=== PATIENT | female | born 1970 | race Caucasian/White ===

== ENCOUNTER → 2019-06-16 00:01 | Outpatient (RCR) | payer MEDICAID, SELFPAY | LOC: ONCMED 05-20 06:33 | PROVIDERS: Family Provider Family Medicine; Referring Provider Thoracic Surgery (Cardiothoracic Vascular Surgery); Visit Provider Internal Medicine Hematology & Oncology | DX: Z51.12 Encounter for antineoplastic immunotherapy (principal); C34.82 Malignant neoplasm of overlapping sites of left bronchus and lung; F17.201 Nicotine dependence, unspecified, in remission; Z51.81 Encounter for therapeutic drug level monitoring; Z79.899 Other long term (current) drug therapy; Z92.3 Personal history of irradiation; Z87.81 Personal history of (healed) traumatic fracture ==

== ENCOUNTER 2019-07-02 07:29 | Outpatient (CLI) | payer MEDICAID, SELFPAY ==
--- NOTE | 2019-07-02 07:35 | NM_ITS ---
WS: [id number] THREE-PHASE BONE SCAN HISTORY: POST OPERATIVE STATE, history of intramedullary rodding fracture distal LEFT femur. COMPARISON: 10/22/2018, PET/CT 05/02/2019, LEFT femur radiograph 06/15/2019 Patient is is injected with 25.1 mCi Tc99m HDP intravenously. Immediate angiographic phase imaging is performed over the area of concern. Static blood pool imaging also performed. Two-hour whole-body sc intigrams performed in anterior and posterior projections. Additional large field of view imaging sub mitted as necessary. Static imaging performed over the the femora and knees. Static blood pool imaging and immediate angiographic phase is negative for increased uptake. There is increased uptake along the cortex of the distal LEFT femur at the area of the previous descr ibed fracture. More focal increased uptake just inferior to the healing fracture. This increased upta ke may be associated with the fractured screw. The more proximal locking screw has an abnormal orient ation and is fractured as seen radiographically on 06/15/2019. Intermediate uptake along the proximal LEFT femur is associated with the hardware. LEFT femoral intramedullary kari demonstrated by photopen ia. There is a very slight increased uptake at the knee which may be due to altered weightbearing. No met astatic lesions throughout the osseous skeleton. Normal soft tissue and renal uptake. NM/NM bone 3 phase 39511 IMPRESSION: 1. No evidence for osteomyelitis or metastatic bone disease. 2. Increased uptake at the fracture site in the distal LEFT femur. Consistent with a healing fracture. Increased uptake is also noted at the location of the fractured distal locking screw which may indicate movement of this screw.
== END 2019-07-02 07:30 | disposition home or self-care (01) ==
PROVIDERS: Family Provider Family Medicine; PCP Family Medicine; Visit Provider Specialist
DX: Z98.890 Other specified postprocedural states (principal); S72.402D Unspecified fracture of lower end of left femur, subsequent encounter for closed fracture with routine healing; X58.XXXD Exposure to other specified factors, subsequent encounter
CPT/HCPCS: 78315; A9561

== ENCOUNTER 2019-07-08 10:13 | Outpatient (CLI) | payer MEDICAID, SELFPAY ==
--- NOTE | 2019-07-08 10:20 | CT_ITS ---
WS: [id number] CT CHEST, ABDOMEN, AND PELVIS TECHNIQUE: Contrast-enhanced CT of the chest, abdomen, and pelvis with coronal and sagittal reformatt ed images. CLINICAL INFORMATION: METASTATIC LUNG CANCER COMPARISON: CT and PET/CT and December 06, 2018 DLP: 1104.[address] scans at [facility] use at least one of these dose optimization techniques: automat ed exposure control; mA and/or kV adjustment per patient size (includes targeted exams where dose is matched to clinical indication); or iterative reconstruction. CT CHEST: Since the prior examinations improved left paratracheal and AP window carcinoma. Today this measures approximately 3.4 x 2.1 cm. Persistent partial encasement of the left subclavian artery. Airway is pa tent. No precarinal right hilar lymphadenopathy. A few noncalcified subcentimeter pulmonary nodules i n the right upper lobe and left upper lobe near the fissure are stable. New hazy groundglass infiltrates within the left upper lobe anteriorly and left lower lobe nonspecifi c but likely infectious or inflammatory in etiology. Right lung is well aerated. Postoperative change s lower cervical spine. Emphysematous changes in the lung apices. No evidence of disease progression. Aortic calcification. Coronary calcification. CT ABDOMEN AND PELVIS: Mild diffuse fatty infiltration the liver. Portal vein and splenic vein are patent. Normal gallbladde r. Stable hemangioma right hepatic lobe laterally. Normal spleen. Normal GE junction. Adrenal glands are normal. Normal renal parenchymal enhancement. Normal caliber abdominal aorta. Aortic calcificatio n. Normal visualized pancreas. Scattered stool in the colon. No evidence of small or large bowel obstruction. Left KERMIT. No abdominal or pelvic lymphadenopathy. No inguinal lymphadenopathy. Normal lumbar spine. CT/CT chest abd pel w con* IMPRESSION: 1. Interval improvement of the left paratracheal and AP window soft tissue mas s today measuring 3.4 x 2.1 CM. 2. No new adenopathy in the chest. 3. No evidence of disease progression the chest abdomen or pelvis. 4. Hazy groundglass infiltrates within the left upper lobe anteriorly and left lower lobe likely infectious or inflammatory in etiology. This may be related to radiation pneumonitis. 5. Stable 4 mm noncalcified nodule in the left upper lobe along the fissure. S table tiny noncalcified nodule right upper lobe. 6. No evidence of metastatic disease in the abdomen or pelvis.
[2019-07-08] MEDS: iohexol 300 mg/mL 50 mL Btl PO (10:31)
[2019-07-08] MEDS: iohexol 300 mg/mL 100 mL Btl IV (12:18)
== END 2019-07-08 10:14 | disposition home or self-care (01) ==
LOC: RAD 10:16
PROVIDERS: Family Provider Family Medicine; PCP Family Medicine; Visit Provider Radiology Radiation Oncology
DX: C34.82 Malignant neoplasm of overlapping sites of left bronchus and lung (principal); M84.452A Pathological fracture, left femur, initial encounter for fracture; R91.1 Solitary pulmonary nodule
CPT/HCPCS: 71260; 74177

== ENCOUNTER 2019-07-17 10:15 | Outpatient (RCR) | payer MEDICAID, SELFPAY ==
[2019-07-06 13:44] LABS: Basophils % 0.5 %; Eosinophils # 0.6 10^3/uL (0.0-0.8); Eosinophils % 8.5 %; Hematocrit 35.5 % (37.0-47.0); Hemoglobin 11.6 g/dL (11.5-15.3); Lymphocytes # 1.1 10^3/uL (0.8-4.8); Mean Corpuscular HGB Conc 32.7 g/dL (30.0-36.0); Mean Corpuscular Hemoglobin 32.6 pg (28.0-34.0); Mean Corpuscular Volume 99.7 fL (81-99); Monocytes # 0.7 10^3/uL (0.2-0.9); Monocytes % 11.3 %; Neutrophils # 4.2 10^3/uL (1.8-7.7); Neutrophils % 63.4 %; Nucleated Red Blood Cells % 0 %; Platelet Count 241 10^3/cmm (130-400); Red Blood Count 3.56 10^6/uL (4.1-5.3); Red Cell Distribution Width 11.3 % (12.1-15.1); White Blood Count 6.6 10^3/uL (4.0-10.0)
[2019-07-06 14:25] LABS: Alanine Aminotransferase 13 U/L (0-33); Alkaline Phosphatase 73 IU/L (35-105); Aspartate Amino Transferase 20 U/L (0-32); Blood Urea Nitrogen 14 mg/dL (6-20); Carbon Dioxide 26 mmol/L (22-29); Chloride 100 mmol/L (98-107); Globulin 3.7 g/dL (1.3-4.6); Glomerular Filtration Rate 88.2 mL/min (90-130); Glucose 108 mg/dL (74-109); Sodium 140 mmol/L (136-145); Total Bilirubin 0.3 mg/dL (0.15-1.2); Total Protein 7.7 g/dL (6.6-8.7)
--- NOTE | 2019-07-08 09:15 | ONC FU_ITS ---
Dr. Morgan follow up note Patient: Tracy Melton Unit #: [id number]: 1970 Dicatated By: Ame Morgan M.D.Date of Visit:Jul 07, 2019 Onc Med Follow-up/Prog Note History of Present Illness: Mrs. Tracy Melton is a 49-year-old female who presented to [facility] with left femur fracture and CT scan of the left femur showed pathological fracture of mid to distal femoral shaft with findings highly worrisome for underlying malignancy/metastatic disease, bone scan done on 10/22/2018 showed abnormal uptake involving mid left femur through femoral condyles. Photopenia defect in the femoral diaphysis at the site of pathological fracture. Consistent with malignancy. No additional abnormal uptake throughout the bony skeleton to suggest the metastatic disease. Subsequently Underwent open reduction and internal fixation on 10/22/2018 an open biopsy was obtained came back negative for malignancy as a further workup patient underwent CT scan of chest abdomen pelvis on 10/22/2018 which showed large lobulated left mediastinal mass measuring 7.5 x 5.7 x 6 cm. Centered in the left paratracheal and AP window. Suspicious for confluent lymphadenopathy. Partially encasing the left subclavian artery, aorta, left main pulmonary artery and left main stem bronchus Subcentimeter right upper and lingular pulmonary nodules, indeterminate for metastatic disease Hepatic hemangioma No metastatic disease to liver or adrenal glands next No bony lesion seen. MRI head done on 11/19/2018 showed no evidence of metastatic disease Patient underwent bronchoscopy and mediastinoscopy on 10/29/2018 and a para-aortic mass obtained via mediastinoscopy shows non-small cell lung cancer, squamous cell type. 25 year history of smoking ,quit smoking on 08/21/2018, Started on combined chemoradiation to The thorax on 11/13/2018 with weekly carboplatin and Taxol. Completed combined chemoradiation on 01/01/2019 And she was referred to orthopedic oncology at [facility] for biopsy-proven negative or Inconclusive as it showed scant necrotic neoplasm or but radiologically suspicious left femur pathological fracture. 20 pound weight loss in the last [address] PET scan done on 12/06/2018 showed hypermetabolic left~mediastinal mass with SUV of 9.2 this is inseparable from mediastinum and demonstrates invasion. Asystole 1.7 x 2.5 cm sub-aortic lymph node with a mild FDG activity. Left femur intramedullary kari is in place with only mild postsurgical inflammatory activity Patient underwent left femur biopsy on 12/08/2018 and As per patient pathology was inconclusive for metastatic disease but clinical impression is still in favor of metastatic disease and she has completed radiation therapy to her femur Molecular profiling on tumor came back negative Started on chemotherapy with carboplatin/Taxol/Keytruda ???4 on 02/25/2019, after 4 cycles, repeat CT PET scan if it shows good response then consider maintenance therapy with Keytruda alone On 03/26/2019 Chemotherapy was discontinued after second cycle because of progressive leukopenia/neutropenia and thrombocytopenia CT PET scan was ordered for evaluation Because of related side effects, with second cycle and on, her Taxol dose was changed to day 1 and day 8 but continue with Keytruda/carboplatin every 3 weeks noted some fullness in her left arm but no pain.For which she underwent left upper extremity venous Doppler study on 03/19/2019 which showed partial DVT seen within subclavian vein near the jugular. All other vessels appear free of thrombosis. Patient was evaluated in emergency room and was started on Eliquis 10 mg by mouth twice a day for 7 days which is completed on 03/26/2019 therafter 5 mg twice a day as a maintenance. And her Port-A-Cath is still functional and needed to continue with chemotherapy and then for maintenance therapy with Keytruda. Because of progressive pancytopenia her consolidation therapy with with carboplatin/Taxol/Keytruda was discontinued after 2 cycles and follow-up CT PET scan done on 05/02/2019 showed the left Mediastinal mass is now 0.8 x 2.3 cm with SUV of 2.3 consistent with complete response to therapy. Inflammatory infiltrates in the anterior left upper lobe water FDG negative. The subaortic lymph node is no longer identified. No evidence of distant metastatic disease. Switched to maintenance Keytruda 200 mg every 3 weeks up to 24 months on 05/05/2019. Came for follow-up, denies any specific complaint except persistent and progressive left leg swelling, patient has history of DVT involving left lower extremity and is on Eliquis, denies any trauma to her left leg. Denies any melena hematochezia denies any nausea or vomiting or nosebleed. No shortness of breath no skin rash no diarrhea or constipation but generalized weakness and fatigue. Otherwise tolerating Keytruda well. Medications: Abilify 0.5 Tablet (of 5 mg) Oral daily, Aspirin 1 (81 mg) Tablet Oral daily, Eliquis 1 Tablet (of 5 mg) Oral b.i.d., Gabapentin 1 Tablet (of 600 mg) Oral t.i.d. PRN, HYDROcodone-Acetaminophen 1 Tablet (of 7.5-325 mg) Oral t.i.d. PRN, LORazepam 0.5 - 1 Tablet (of 1 mg) Oral t.i.d. PRN, Wellbutrin XL 1 (300 mg) Tablet SR 24 HR Oral daily, Zoloft 1.5 Tablet (of 100 mg) Oral daily Allergies: Bactrim and Cipro. Review of Systems: Constitutional - Appetite is fair and weight is stable. Energy level is fair, ENMT - No sinus congestion/drainage. No mouth sores. No sore throat or difficulty swallowing, Hematologic/Lymphatic - No abnormal bruising or bleeding, Respiratory - Positive for occasional shortness of breath and cough, Cardiovascular - No angina pain. No palpitations, Gastrointestinal - No nausea, no vomiting. No heartburn or acid reflux. No diarrhea, no constipation. No blood in the stool or black stools, Genitourinary (F) - No urinary symptoms today, Musculoskeletal - Positive for joint pain, Neurologic - Positive for occasional dizziness and Hx of head injury, Psychiatric - Positive for anxiety/depression/insomnia. Vital Signs: Performed on Jul 07, 2019 10:33 Height - 64.00 in Weight - 131.4 lbs (HIGH) BSA - 1.64 sq.m BMI - 22.55 Temperature - 97.5 F (LOW) Pulse - 99 /min Respiration - 18 /min BP - 128/70 mm(hg) O2 Sat - 98 % Pain - 2 Performance Status: 1 - No physically strenuous activity, but ambulatory and able to carry out light or sedentary work (e.g. office work, light house work). (ECOG) Physical Examination: ENMT - No oral exudates, ulcers, masses, thrush or mucositis. Oropharynx clear. Tongue normal, Hematologic/Lymphatic - No petechiae or purpura. No tender or palpable lymph nodes in the cervical, supraclavicular, axillary or inguinal area, Respiratory - Lungs are clear to auscultation without rhonchi or wheezing, Abdomen - Non-tender, non-distended, . Good bowel sounds. No guarding or rebound tenderness. No pulsatile masses, Extremities - 2+ Left leg pitting edema. Lab/Imaging: Test performed on Jul 06, 2019 13:10 Sodium 140 mmol/L Potassium 4.0 mmol/L Chloride 100 mmol/L CO2 26 mmol/L Anion Gap 18 BUN 14 mg/dL Creatinine 0.7 mg/dL Cr Clearance (Est) 86.74 mL/min eGFR 88.2 mL/min Glucose 108 mg/dL Calcium 10 mg/dL Protein, Total 0.3 g/dL Albumin 4 g/dL Globulin 3.7 g/dL Bilirubin, Total 0.3 mg/dL ALT (SGPT) 13 Units/L AST (SGOT) 20 Units/L Alkaline Phosphatase 73 IU/L WBC 6.6 10 3/uL RBC 3.56 10^6/uL HGB 11.6 g/dL HCT 35.5 % MCV 99.7 fL MCH 32.6 pg MCHC 32.7 g/dL RDW 11.3 % Platelet Count 241 10 3/cmm MPV 9.0 fL Neutrophils 4.2 10 3/uL Lymphocytes 1.1 10^3/uL Monocytes 0.7 10^3/uL Eosinophils 0.6 10^3/uL Basophils 0 10^3/uL Neutrophil % 63.4 % Lymphocyte % 16 % Monocyte % 11.3 % Eosinophil % 8.5 % Basophils % 0.5 % Test performed on Apr 15, 2019 10:50 Ferritin 357.0 ng/ml Folate, Serum 8.6 ng/mL Iron 85 ug/dL Vitamin B12 721 pg/mL % Iron Saturation 33.0 % UIBC 172 ug/dL CBC Slide Review SLIDE REVIEW PERFORM SLIDE REVIEW AGREES WITH AUTOMATED RESULTS Test performed on Feb 24, 2019 13:18 Acetaminophen < 5.0 ug/mL TSH 1.45 uIU/mL Impression: Squamous cell carcinoma involving left paratracheal area for mediastinoscopy done on 10/29/2018 CT scan of chest abdomen pelvis done on 10/22/2018 showed large lobulated left mediastinal mass measuring 7.5 x 5.7 x 6 cm. Centered in the left paratracheal and AP window. Suspicious for confluent adenopathy. Partially encasing the left subclavian artery, aorta, left main pulmonary artery and left main stem bronchus. Subcentimeter right upper and lingular pulmonary nodules, indeterminate for metastatic disease No metastatic disease to the liver or adrenal glands No bone metastases. MRI head done on 11/19/2018 showed no evidence of metastatic disease As per radiation oncology patient still awaiting approval from Medicaid for CT PET scan History of smoking for 25 years, quit smoking on 10/21/2018. Bone scan done on 10/22/2018 showed abnormal uptake involving left mid femur through the femoral condyles. Photopenia defect in the femoral diaphysis at the site of pathological fracture consistent with malignancy. No additional bone metastases seen. CT PET scan done on 12/06/2018 shows hypermetabolic left paraMediastinal mass with SUV of 9.2 and is inseparable from the mediastinum and demonstrates invasion. A cystic 1.7 x 2.5 cm subaortic node demonstrates mild FDG activity. And left femur intramedullary kari is in place, with only mild postsurgical inflammatory activity. History of left femur fracture due to fall, status post open reduction and internal fixation done on 10/22/2018, open biopsy was negative for metastatic disease Now being referred to orthopedic oncology at [facility] for second opinion Left femur biopsy was done on 12/08/2018. Started on combined chemoradiation to the chest wall with weekly carboplatin Taxol on 11/13/2018. Per Ms Geronimo, radiation therapy to left femur was also added on 11/24/2018.She compared to combined chemoradiation to her chest on 01/01/2019 and also received radiation to her left femur for metastatic disease but biopsy was inconclusive Started on consolidation therapy with Keytruda/Taxol/carboplatin ???3 on 02/26/2019 Consolidation therapy was discontinued after two cycles because of progressive pancytopenia and more severe thrombocytopenia. On 03/26/2019 and follow-up CT PET scan done on 05/02/2019 showed excellent response to therapy and she was switched to maintenance therapy with Keytruda alone 200 mg every 3 weeks up to 24 months as long as tolerating and there is a no evidence of disease progression. She will begin her first maintenance dose today. Plan: Discussed with patient regarding her labs white blood count 6.6 hemoglobin 11.6 crit 35.5 platelets 241,000 CMP within normal limits and bone scan done on 07/02/2019 which showed no evidence of metastatic disease or ostium mellitus increase uptake at the fracture site and then distal left femur consistent with healing fracture Clinically, patient is doing well, tolerating maintenance immunotherapy with Keytruda well. But with expected side effects e.g. generalized weakness and fatigue. We'll proceed with next 3 weekly dose of Keytruda today and then she will return to clinic in 3 weeks with CBC CMP TSH and ACTH level As for the left leg swelling is concern probably due to DVT patient was advised to use EVA hose and elevate left leg while in the bed. And also consider repeating venous Doppler study to rule out left leg DVT progression. Signed By: Ame Morgan M.D. <<Signature on File>>
--- NOTE | 2019-07-09 13:37 | ONCRAD EPV_ITS ---
Radiation Oncology Established Patient Visit Patient: Anastacia MR#: [id number] : 1970> Age: 49> Sex: Female> Dictated by: Dr. Lucas Galvan Date of Service: 07/09/2019 Referring Physician(s): Ame Morgan Diagnosis: C34.82 - Malignant neoplasm of overlapping sites of left bronchus and lung, Diagnosed 10/29/2018 (Active) Chief Complaint / History of Present Illness: This is a 48-year-old lady with a large mediastinal mass that is biopsy proven non-small cell carcinoma. She also had a left femur metastasis with pathological fracture but no evidence of other metastatic disease. She received radiotherapy to the left femur to a total dose of 39 Gy followed by concurrent chemoradiation therapy to the chest to a total dose of 66 Gy completed on December 16, 2018. Post treatment CT of chest with contrast on 02/12/2019 showed: 1. Significant interval improvement in the left paratracheal and AP window soft tissue mass consistent with known carcinoma. Today this measures 2.6 x 3.8 x 4.4cm. This compares to 5.7 x 6.0 x 7.5 cm previous; 2. Persistent encasement left subclavian artery origin which remains patent; 3. A few noncalcified nodules are unchanged largest in the lingula measuring 4mm. The patient has recovered from chemoradiation well. Currently she is receiving immunotherapy Keytruda and tolerating it well. She notes swelling in the left lower extremity likely due to the surgery. She denies increased cough, shortness of breath, chest pain, fever, chills, headaches or focal neurological deficits. She underwent a CT of chest/abdomen/pelvis on July 08, 2019 which showed interval improvement of the left paratracheal and AP window soft tissue mass measuring 3.4 x 2.1 cm with no new lymphadenopathy in the chest and no evidence of disease progression or metastatic disease in the abdomen or pelvis. Bone scan on July 02, 2019 showed no evidence of bony metastatic disease. Current Medications: Abilify, apixaban, aprepitant, aspirin, dexamethasone, eliquis, gabapentin, gabapentin, hYDROcodone-Acetaminophen, hYDROcodone-Acetaminophen, keytruda, lORazepam, lORazepam, prochlorperazine Maleate, wellbutrin XL, zithromax Z-Ky, zoloft. Allergies: Bactrim and Cipro. Current Complaints / Review of Systems: Constitutional - Complains of moderate fatigue. Complains of night sweats. Denies lack of appetite and fever. Eyes - Denies blurred vision and double vision. ENMT - Denies dysphagia but has been having odynophagia that has started recently, ear pain, mouth dryness, stomatitis, altered taste and tinnitus. Neck - Complains of neck pain. Denies decreased range of motion. Integumentary - Denies rash. Cardiovascular - Complains of edema left upper leg. Denies arrhythmias and chest pain. Respiratory - Complains of a mild cough that happens occasionally. Complains of mild dyspnea associated with normal activity. Denies wheezing. Gastrointestinal - Complains of diarrhea had a little bit yesterday but none since then. Denies abdominal pain, constipation, melena / GI bleeding, nausea and vomiting. Genitourinary (F) - Complains of nocturia gets up about 1 time per night. Denies dysuria, frequency, urgency, vaginal discharge / bleeding and vaginal spotting. Musculoskeletal - Complains of arthritis and joint pain neck, fingers, and right knee. Denies bone pain. Neurologic - Complains of intermittent dizziness that occurs with activity. Denies headaches, insomnia and sensory problems. Endocrine - Complains of frequent hot flashes. Denies diabetes and thyroid disease. Hematologic/Lymphatic - Denies tender or enlarged lymph nodes.. Vital Signs: Performed on 07/09/2019 10:29 AM BMI - 22.486 kg/m2, Height - 64.00 in, Weight - 131.0 lbs, Temperature - 98.5 f, Pulse - 87, Respiration - 18, O2 Sat - 96 %, Pain - 0 and BP - 144/ 85 mm(hg)(high/). Physical Exam: General: Alert and oriented x 3. No acute distress. HEENT: Normocephalic, atraumatic. Extraocular Movements Intact: Pupils Equal, Round, Reactive to Light and Accommodation: Sclerae anicteric. Oral cavity is clear without lesions, masses or ulcers. NECK: Supple without supraclavicular or jugular lymphadenopathy. LUNGS: Decreased breath sound to auscultation bilaterally without rales, rhonchi or wheeze. HEART: Regular rate and rhythm, normal S1 and S2 without murmur, gallop or rub. MUSCULOSKELETAL: No tenderness or percussion pain over the axial skeleton, scapulae or pelvis. ABDOMEN: Soft, nontender, nondistended without masses or organomegaly. Bowel sounds are present. EXTREMITIES: Swelling of the left lower extremity. NEUROLOGIC: Cranial nerves II ???XII are grossly intact. Normal sensation, strength 5/5 in all extremities, normal gait, no ataxia. Performance Status: 1 - No physically strenuous activity, but ambulatory and able to carry out light or sedentary work (e.g. office work, light house work). (ECOG) Lab: Test performed on 07/06/2019 1:10 PM MCV - 99.7 fl (high), RDW - 11.3 % (low) and Neutrophils - 4.2 10 3/ul (high). Pathology: non-small cell carcinoma Impression/plan: There is no clinical evidence of disease progression. The patient will continue anti-PD1 immunotherapy. She will have a PET/CT in 2 to 3 months and to follow up with us afterwards. Signed by: 07/09/2019 1:36:01 PM <<Signature on File>> CPT Code: CPT Code: Signed By: Dr. Lucas Galvan, 07/09/2019 1:36:02 PM <<Signature on File>>
--- NOTE | 2019-07-17 10:05 | USCV_ITS ---
Tracy Melton Age: 49 Gender: F : 1970 Exam Date: 07/17/2019 10:30 Ordering Phys: Ame Morgan MD Technologist: Thomas Barrett [place]am [place] [facility] [place]ication: LT LEG PAIN AND SWELLING HISTORY: HX OF DVT PROCEDURES: Venous duplex imaging was performed in only the left lower extremity. The following venous structures were evaluated: common femoral vein, profunda vein, proximal portion of the greater saphenous vein, superficial femoral vein, and the popliteal vein. In addition, the posterior tibial and peroneal trunk were evaluated. On the left side, the common femoral, superficial femoral, profunda femoral, popliteal, posterior tibial, greater saphenous veins, and the peroneal trunk were identified and interrogated in the standard fashion. These veins were found to be easily compressible with spontaneous blood flow. No evidence of insufficiency or thrombus noted. FINDINGS: Normal 2-D Doppler and augmentation and compressibility throughout the lower extremity venous structures. Additional imaging through the proximal calf veins also reveals no thrombus. Limited evaluation of the greater saphenous vein is patent with no thrombus.. CONCLUSIONS No evidence of left lower extremity DVT. Jason Mancilla MD (Electronically Signed) Final Date: 17 July 2019 14:33 S
== END 2019-07-17 23:59 | disposition home or self-care (01) ==
LOC: RAD 10:15
PROVIDERS: Nurse Practitioner; Family Provider Family Medicine; PCP Family Medicine; Visit Provider Radiology Radiation Oncology
DX: Z51.12 Encounter for antineoplastic immunotherapy (principal); C34.82 Malignant neoplasm of overlapping sites of left bronchus and lung; C79.51 Secondary malignant neoplasm of bone; D18.09 Hemangioma of other sites; G47.00 Insomnia, unspecified; M79.89 Other specified soft tissue disorders; F41.8 Other specified anxiety disorders; Z79.01 Long term (current) use of anticoagulants; Z79.82 Long term (current) use of aspirin; Z79.891 Long term (current) use of opiate analgesic; Z87.891 Personal history of nicotine dependence; Z92.3 Personal history of irradiation; Z86.718 Personal history of other venous thrombosis and embolism; Z92.21 Personal history of antineoplastic chemotherapy
CPT/HCPCS: 36591; 80053; 85025; 93971; 96413; 99213; 99214; J7050; J9271

== ENCOUNTER → 2019-07-23 11:15 | Outpatient (BNVA) | payer MEDICAID, SELFPAY | PROVIDERS: Family Provider Family Medicine; PCP Family Medicine; Visit Provider Nurse Practitioner | DX: F43.12 Post-traumatic stress disorder, chronic (principal); G25.81 Restless legs syndrome | CPT/HCPCS: 99215 ==

== ENCOUNTER 2019-07-28 05:36 | Outpatient (RCR) | payer MEDICAID, SELFPAY ==
[2019-07-27 13:34] LABS: Basophils % 0.2 %; Eosinophils # 0.4 10^3/uL (0.0-0.8); Eosinophils % 8.2 %; Hematocrit 33.8 % (37.0-47.0); Hemoglobin 11.3 g/dL (11.5-15.3); Lymphocytes % 19.9 %; Mean Corpuscular HGB Conc 33.4 g/dL (30.0-36.0); Mean Corpuscular Hemoglobin 31.5 pg (28.0-34.0); Mean Corpuscular Volume 94.2 fL (81-99); Mean Platelet Volume 8.8 fL (7.4-10.4); Monocytes # 0.5 10^3/uL (0.2-0.9); Monocytes % 10.3 %; Neutrophils # 3.1 10^3/uL (1.8-7.7); Neutrophils % 61.2 %; Nucleated Red Blood Cells % 0 %; Platelet Count 181 10^3/cmm (130-400); Red Blood Count 3.59 10^6/uL (4.1-5.3); Red Cell Distribution Width 11.6 % (12.1-15.1); White Blood Count 5.1 10^3/uL (4.0-10.0)
[2019-07-27 13:58] LABS: Alanine Aminotransferase 14 U/L (0-33); Albumin Level 3.9 g/dL (3.5-5.2); Alkaline Phosphatase 75 IU/L (35-105); Anion Gap 16.5 (5-19); Aspartate Amino Transferase 19 U/L (0-32); Blood Urea Nitrogen 14 mg/dL (6-20); Calcium 9.4 mg/dL (8.5-10.5); Carbon Dioxide 26 mmol/L (22-29); Chloride 99 mmol/L (98-107); Globulin 2.9 g/dL (1.3-4.6); Glomerular Filtration Rate 105.4 mL/min (90-130); Glucose 157 mg/dL (65-115); Potassium 3.5 mmol/L (3.5-5.1); Sodium 138 mmol/L (136-145); Total Bilirubin 0.2 mg/dL (0.15-1.2); Total Protein 6.8 g/dL (6.6-8.7)
--- NOTE | 2019-07-28 13:55 | ONC FU_ITS ---
Dr. Morgan follow up note Patient: Tracy Melton Unit #: [id number]: 1970 Dicatated By: Ame Morgan M.D.Date of Visit:Jul 28, 2019 Onc Med Follow-up/Prog Note History of Present Illness: Mrs. Tracy Melton is a 49-year-old female who presented to [facility] with left femur fracture and CT scan of the left femur showed pathological fracture of mid to distal femoral shaft with findings highly worrisome for underlying malignancy/metastatic disease, bone scan done on 10/22/2018 showed abnormal uptake involving mid left femur through femoral condyles. Photopenia defect in the femoral diaphysis at the site of pathological fracture. Consistent with malignancy. No additional abnormal uptake throughout the bony skeleton to suggest the metastatic disease. Subsequently Underwent open reduction and internal fixation on 10/22/2018 an open biopsy was obtained came back negative for malignancy as a further workup patient underwent CT scan of chest abdomen pelvis on 10/22/2018 which showed large lobulated left mediastinal mass measuring 7.5 x 5.7 x 6 cm. Centered in the left paratracheal and AP window. Suspicious for confluent lymphadenopathy. Partially encasing the left subclavian artery, aorta, left main pulmonary artery and left main stem bronchus Subcentimeter right upper and lingular pulmonary nodules, indeterminate for metastatic disease Hepatic hemangioma No metastatic disease to liver or adrenal glands next No bony lesion seen. MRI head done on 11/19/2018 showed no evidence of metastatic disease Patient underwent bronchoscopy and mediastinoscopy on 10/29/2018 and a para-aortic mass obtained via mediastinoscopy shows non-small cell lung cancer, squamous cell type. 25 year history of smoking ,quit smoking on 08/21/2018, Started on combined chemoradiation to The thorax on 11/13/2018 with weekly carboplatin and Taxol. Completed combined chemoradiation on 01/01/2019 And she was referred to orthopedic oncology at [facility] for biopsy-proven negative or Inconclusive as it showed scant necrotic neoplasm or but radiologically suspicious left femur pathological fracture. 20 pound weight loss in the last [address] PET scan done on 12/06/2018 showed hypermetabolic left~mediastinal mass with SUV of 9.2 this is inseparable from mediastinum and demonstrates invasion. Asystole 1.7 x 2.5 cm sub-aortic lymph node with a mild FDG activity. Left femur intramedullary kari is in place with only mild postsurgical inflammatory activity Patient underwent left femur biopsy on 12/08/2018 and As per patient pathology was inconclusive for metastatic disease but clinical impression is still in favor of metastatic disease and she has completed radiation therapy to her femur Molecular profiling on tumor came back negative Started on chemotherapy with carboplatin/Taxol/Keytruda ???4 on 02/25/2019, after 4 cycles, repeat CT PET scan if it shows good response then consider maintenance therapy with Keytruda alone On 03/26/2019 Chemotherapy was discontinued after second cycle because of progressive leukopenia/neutropenia and thrombocytopenia CT PET scan was ordered for evaluation Because of related side effects, with second cycle and on, her Taxol dose was changed to day 1 and day 8 but continue with Keytruda/carboplatin every 3 weeks noted some fullness in her left arm but no pain.For which she underwent left upper extremity venous Doppler study on 03/19/2019 which showed partial DVT seen within subclavian vein near the jugular. All other vessels appear free of thrombosis. Patient was evaluated in emergency room and was started on Eliquis 10 mg by mouth twice a day for 7 days which is completed on 03/26/2019 therafter 5 mg twice a day as a maintenance. And her Port-A-Cath is still functional and needed to continue with chemotherapy and then for maintenance therapy with Keytruda. Because of progressive pancytopenia her consolidation therapy with with carboplatin/Taxol/Keytruda was discontinued after 2 cycles and follow-up CT PET scan done on 05/02/2019 showed the left Mediastinal mass is now 0.8 x 2.3 cm with SUV of 2.3 consistent with complete response to therapy. Inflammatory infiltrates in the anterior left upper lobe water FDG negative. The subaortic lymph node is no longer identified. No evidence of distant metastatic disease. Switched to maintenance Keytruda 200 mg every 3 weeks up to 24 months on 05/05/2019. Left lower leg swelling, for which she underwent venous Doppler study on 07/17/2019 which shows no evidence of DVT in left lower extremity Came for follow-up, denies any specific complaints, no fever or chills, no nausea or vomiting, no left upper extremity swelling but mild left lower extremity swelling and as per patient recently she had left thigh x-ray done in Dr. Terry told her that one of the screw is loose but now intervention required as a follow-up. And recently underwent venous Doppler study of left lower extremity which showed no evidence of DVT. Denies any shortness of breath denies any skin rash denies any diarrhea constipation tolerating Keytruda well otherwise. Medications: Abilify 0.5 Tablet (of 5 mg) Tablet Oral daily, Aspirin 1 (81 mg) Tablet Oral daily, Eliquis 1 Tablet (of 5 mg) Oral b.i.d., Gabapentin 1 Tablet (of 600 mg) Oral t.i.d. PRN, HYDROcodone-Acetaminophen 1 Tablet (of 7.5-325 mg) Oral t.i.d. PRN, LORazepam 0.5 - 1 Tablet (of 1 mg) Oral t.i.d. PRN, Wellbutrin XL 1 (300 mg) Tablet SR 24 HR Oral daily, Zoloft 1.5 Tablet (of 100 mg) Oral daily Allergies: Bactrim and Cipro. Review of Systems: Constitutional - Appetite is fair and weight is stable. Energy level is fair, ENMT - No sinus congestion/drainage. No mouth sores. No sore throat or difficulty swallowing, Hematologic/Lymphatic - No abnormal bruising or bleeding, Respiratory - Positive for occasional shortness of breath and cough, Cardiovascular - No angina pain. No palpitations, Gastrointestinal - No nausea, no vomiting. No heartburn or acid reflux. No diarrhea, no constipation. No blood in the stool or black stools, Genitourinary (F) - No urinary symptoms today, Musculoskeletal - Positive for joint pain, Neurologic - Positive for occasional dizziness and Hx of head injury, Psychiatric - Positive for anxiety/depression/insomnia. Vital Signs: Performed on Jul 28, 2019 08:45 Height - 64.00 in Weight - 133.4 lbs (HIGH) BSA - 1.65 sq.m BMI - 22.90 Temperature - 97.2 F (LOW) Pulse - 85 /min Respiration - 20 /min BP - 126/66 mm(hg) O2 Sat - 99 % Pain - 4 Performance Status: 1 - No physically strenuous activity, but ambulatory and able to carry out light or sedentary work (e.g. office work, light house work). (ECOG) Physical Examination: ENMT - No oral exudates, ulcers, masses, thrush or mucositis. Oropharynx clear. Tongue normal, Respiratory - Lungs are clear to auscultation without rhonchi or wheezing, Cardiovascular - Regular rate and rhythm of heart, Abdomen - Non-tender, non-distended, Good bowel sounds. No guarding or rebound tenderness. No pulsatile masses, Extremities - trace edema left leg. Lab/Imaging: Test performed on Jul 06, 2019 13:10 Sodium 140 mmol/L Potassium 4.0 mmol/L Chloride 100 mmol/L CO2 26 mmol/L Anion Gap 18 BUN 14 mg/dL Creatinine 0.7 mg/dL Cr Clearance (Est) 86.74 mL/min eGFR 88.2 mL/min Glucose 108 mg/dL Calcium 10 mg/dL Protein, Total 0.3 g/dL Albumin 4 g/dL Globulin 3.7 g/dL Bilirubin, Total 0.3 mg/dL ALT (SGPT) 13 Units/L AST (SGOT) 20 Units/L Alkaline Phosphatase 73 IU/L WBC 6.6 10 3/uL RBC 3.56 10^6/uL HGB 11.6 g/dL HCT 35.5 % MCV 99.7 fL MCH 32.6 pg MCHC 32.7 g/dL RDW 11.3 % Platelet Count 241 10 3/cmm MPV 9.0 fL Neutrophils 4.2 10 3/uL Lymphocytes 1.1 10^3/uL Monocytes 0.7 10^3/uL Eosinophils 0.6 10^3/uL Basophils 0 10^3/uL Neutrophil % 63.4 % Lymphocyte % 16 % Monocyte % 11.3 % Eosinophil % 8.5 % Basophils % 0.5 % Test performed on Apr 15, 2019 10:50 Ferritin 357.0 ng/ml Folate, Serum 8.6 ng/mL Iron 85 ug/dL Vitamin B12 721 pg/mL % Iron Saturation 33.0 % UIBC 172 ug/dL CBC Slide Review SLIDE REVIEW PERFORM SLIDE REVIEW AGREES WITH AUTOMATED RESULTS Test performed on Feb 24, 2019 13:18 Acetaminophen < 5.0 ug/mL TSH 1.45 uIU/mL Impression: Squamous cell carcinoma involving left paratracheal area for mediastinoscopy done on 10/29/2018 CT scan of chest abdomen pelvis done on 10/22/2018 showed large lobulated left mediastinal mass measuring 7.5 x 5.7 x 6 cm. Centered in the left paratracheal and AP window. Suspicious for confluent adenopathy. Partially encasing the left subclavian artery, aorta, left main pulmonary artery and left main stem bronchus. Subcentimeter right upper and lingular pulmonary nodules, indeterminate for metastatic disease No metastatic disease to the liver or adrenal glands No bone metastases. MRI head done on 11/19/2018 showed no evidence of metastatic disease As per radiation oncology patient still awaiting approval from Medicaid for CT PET scan History of smoking for 25 years, quit smoking on 10/21/2018. Bone scan done on 10/22/2018 showed abnormal uptake involving left mid femur through the femoral condyles. Photopenia defect in the femoral diaphysis at the site of pathological fracture consistent with malignancy. No additional bone metastases seen. CT PET scan done on 12/06/2018 shows hypermetabolic left paraMediastinal mass with SUV of 9.2 and is inseparable from the mediastinum and demonstrates invasion. A cystic 1.7 x 2.5 cm subaortic node demonstrates mild FDG activity. And left femur intramedullary kari is in place, with only mild postsurgical inflammatory activity. History of left femur fracture due to fall, status post open reduction and internal fixation done on 10/22/2018, open biopsy was negative for metastatic disease Now being referred to orthopedic oncology at [facility] for second opinion Left femur biopsy was done on 12/08/2018. Started on combined chemoradiation to the chest wall with weekly carboplatin Taxol on 11/13/2018. Per Geronimo, radiation therapy to left femur was also added on 11/24/2018.She compared to combined chemoradiation to her chest on 01/01/2019 and also received radiation to her left femur for metastatic disease but biopsy was inconclusive Started on consolidation therapy with Keytruda/Taxol/carboplatin ???3 on 02/26/2019 Consolidation therapy was discontinued after two cycles because of progressive pancytopenia and more severe thrombocytopenia. On 03/26/2019 and follow-up CT PET scan done on 05/02/2019 showed excellent response to therapy and she was switched to maintenance therapy with Keytruda alone 200 mg every 3 weeks up to 24 months as long as tolerating and there is a no evidence of disease progression. She will begin her first maintenance dose today. Plan: Discussed with patient regarding her labs white blood count 5.1 hemoglobin 11.3 crit 33.8 platelets 181,000 CMP within normal limits and left lower extremity Doppler study showed no DVT. Clinically, patient doing well with no signs symptoms cystoscopy disease progression, tolerating maintenance dose of Keytruda well. We'll proceed with next dose today and then return to clinic in 3 weeks As for left leg swelling is concern, etiology unclear could be due to lymphedema or chronic inflammation due to left femur internal fixation status post radiation therapy although metastatic disease to the femur. As her venous Doppler study of left lower extremity showed no DVT. Patient is on Eliquis since March 2019, history of left upper extremity DVT which was probably due to Port-A-Cath in the left subclavian. At this point we will consider checking d-dimer and if normal then will consider discontinuation of Eliquis. Return to clinic in 3 weeks with CBC CMP and TSH. Signed By: Ame Morgan M.D. <<Signature on File>>
[2019-07-30 13:47] LABS: Adrenocorticotropic Hormone 8 pg/mL (6-50)
== END 2019-08-15 23:59 | disposition home or self-care (01) ==
LOC: ONCMED 05:36
PROVIDERS: Absent Provider Radiology Radiation Oncology; Family Provider Family Medicine; PCP Family Medicine; Visit Provider Internal Medicine Hematology & Oncology
DX: Z51.12 Encounter for antineoplastic immunotherapy (principal); C34.82 Malignant neoplasm of overlapping sites of left bronchus and lung; D18.09 Hemangioma of other sites; M79.89 Other specified soft tissue disorders; Z79.01 Long term (current) use of anticoagulants; Z79.82 Long term (current) use of aspirin; Z79.891 Long term (current) use of opiate analgesic; Z87.891 Personal history of nicotine dependence; Z92.21 Personal history of antineoplastic chemotherapy; Z92.3 Personal history of irradiation; Z86.718 Personal history of other venous thrombosis and embolism
CPT/HCPCS: 36591; 73552; 80053; 82024; 84443; 85025; 96413; 99214; J7050; J9271

== ENCOUNTER 2019-09-15 06:37 | Outpatient (RCR) | payer MEDICAID, SELFPAY ==
[2019-08-24 13:50] LABS: Basophils % 0.4 %; Eosinophils # 0.7 10^3/uL (0.0-0.8); Eosinophils % 12.4 %; Hematocrit 32.6 % (37.0-47.0); Hemoglobin 10.8 g/dL (11.5-15.3); Lymphocytes % 17.3 %; Mean Corpuscular HGB Conc 33.1 g/dL (30.0-36.0); Mean Corpuscular Hemoglobin 30.5 pg (28.0-34.0); Mean Corpuscular Volume 92.1 fL (81-99); Monocytes # 0.6 10^3/uL (0.2-0.9); Monocytes % 11.3 %; Neutrophils # 3.2 10^3/uL (1.8-7.7); Neutrophils % 58.4 %; Nucleated Red Blood Cells % 0 %; Platelet Count 218 10^3/cmm (130-400); Red Blood Count 3.54 10^6/uL (4.1-5.3); Red Cell Distribution Width 12.6 % (12.1-15.1); White Blood Count 5.5 10^3/uL (4.0-10.0)
[2019-08-24 14:33] LABS: D Dimer 0.41 ug/mIFEU (0-0.59)
[2019-08-24 14:45] LABS: Alanine Aminotransferase 11 U/L (0-33); Albumin Level 3.8 g/dL (3.5-5.2); Alkaline Phosphatase 71 IU/L (35-105); Anion Gap 14.7 (5-19); Aspartate Amino Transferase 15 U/L (0-32); Blood Urea Nitrogen 11 mg/dL (6-20); Calcium 9.5 mg/dL (8.5-10.5); Carbon Dioxide 27 mmol/L (22-29); Chloride 100 mmol/L (98-107); Globulin 3.5 g/dL (1.3-4.6); Glomerular Filtration Rate 105.4 mL/min (90-130); Glucose 99 mg/dL (65-115); Osmolality Calculated 282 mOsm/kg (285-295); Potassium 3.7 mmol/L (3.5-5.1); Sodium 138 mmol/L (136-145); Thyroid Stimulating Hormone 0.97 uIU/mL (0.27-4.20); Total Bilirubin 0.3 mg/dL (0.15-1.2); Total Protein 7.3 g/dL (6.6-8.7)
[2019-08-25] MEDS: sodium chloride 0.9% 250 ML 999 ML IV (15:00)
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
[2019-09-14 13:38] LABS: Alanine Aminotransferase 12 U/L (0-33); Albumin Level 4.2 g/dL (3.5-5.2); Alkaline Phosphatase 73 IU/L (35-105); Anion Gap 15.7 (5-19); Aspartate Amino Transferase 16 U/L (0-32); Blood Urea Nitrogen 15 mg/dL (6-20); Calcium 9.5 mg/dL (8.5-10.5); Carbon Dioxide 27 mmol/L (22-29); Chloride 102 mmol/L (98-107); Globulin 2.5 g/dL (1.3-4.6); Glomerular Filtration Rate 105.4 mL/min (90-130); Glucose 117 mg/dL (65-115); Osmolality Calculated 289 mOsm/kg (285-295); Potassium 3.7 mmol/L (3.5-5.1); Sodium 141 mmol/L (136-145); Total Bilirubin 0.2 mg/dL (0.15-1.2); Total Protein 6.7 g/dL (6.6-8.7)
[2019-09-14 13:47] LABS: Basophils % 0.3 %; Eosinophils # 0.6 10^3/uL (0.0-0.8); Eosinophils % 10.5 %; Hematocrit 31.2 % (37.0-47.0); Hemoglobin 10.2 g/dL (11.5-15.3); Lymphocytes # 1.2 10^3/uL (0.8-4.8); Lymphocytes % 21.4 %; Mean Corpuscular HGB Conc 32.7 g/dL (30.0-36.0); Mean Corpuscular Hemoglobin 31.2 pg (28.0-34.0); Mean Corpuscular Volume 95.4 fL (81-99); Monocytes # 0.6 10^3/uL (0.2-0.9); Monocytes % 10.2 %; Neutrophils # 3.3 10^3/uL (1.8-7.7); Neutrophils % 57.4 %; Nucleated Red Blood Cells % 0 %; Platelet Count 213 10^3/cmm (130-400); Red Blood Count 3.27 10^6/uL (4.1-5.3); Red Cell Distribution Width 12.9 % (12.1-15.1); White Blood Count 5.8 10^3/uL (4.0-10.0)
--- NOTE | 2019-09-15 14:11 | ONC FU_ITS ---
Dr. Morgan follow up note Patient: Tracy Melton Unit #: [id number]: 1970 Dicatated By: Ame Morgan M.D.Date of Visit:Sep 15, 2019 Onc Med Follow-up/Prog Note History of Present Illness: Mrs. Melton is a 49-year-old female who presented to [facility] [place] [facility] with left femur fracture. CT scan of the left femur showed pathological fracture of mid to distal femoral shaft with findings highly worrisome for underlying malignancy/metastatic disease. A bone scan was done on 10/22/2018. It reported abnormal uptake involving mid left femur through femoral condyles. Photopenia defect in the femoral diaphysis at the site of pathological fracture. Consistent with malignancy. No additional abnormal uptake throughout the bony skeleton to suggest the metastatic disease. Subsequently, she underwent open reduction and internal fixation on 10/22/2018. An open biopsy was obtained and it came back negative for malignancy. For further workup, Ms Melton underwent CT scan of chest abdomen pelvis on 10/22/2018. The scans showed large lobulated left mediastinal mass measuring 7.5 x 5.7 x 6 cm. Centered in the left paratracheal and AP window. Suspicious for confluent lymphadenopathy. Partially encasing the left subclavian artery, aorta, left main pulmonary artery and left main stem bronchus; Subcentimeter right upper and lingular pulmonary nodules, indeterminate for metastatic disease; Hepatic hemangioma; No metastatic disease to liver or adrenal glands; No bony lesion seen. MRI head done on 11/19/2018 showed no evidence of metastatic disease Mrs Melton underwent bronchoscopy and mediastinoscopy on 10/29/2018 and a para-aortic mass obtained via mediastinoscopy shows non-small cell lung cancer, squamous cell type. 25 year history of smoking ,quit smoking on 08/21/2018, Mrs Melton was started on combined chemoradiation to The thorax on 11/13/2018 with weekly carboplatin and Taxol. Completed combined chemoradiation on 01/01/2019. She was referred to orthopedic oncology at [facility] for biopsy-proven negative or Inconclusive as it showed scant necrotic neoplasm or but radiologically suspicious left femur pathological fracture. She had had 20 pound weight loss within [address] PET scan done on 12/06/2018 showed hypermetabolic left~mediastinal mass with SUV of 9.2 this is inseparable from mediastinum and demonstrates invasion. Asystole 1.7 x 2.5 cm sub-aortic lymph node with a mild FDG activity. Left femur intramedullary kari is in place with only mild postsurgical inflammatory activity Patient underwent left femur biopsy on 12/08/2018 and As per patient pathology was inconclusive for metastatic disease but clinical impression is still in favor of metastatic disease and she has completed radiation therapy to her femur Molecular profiling on tumor came back negative Mrs Melton on chemotherapy with carboplatin/Taxol/Keytruda ???4 on 02/25/2019, after 4 cycles, with a plan of repeating CT PET scan. If it showed good response then consider maintenance therapy with Keytruda alone Because of related side effects, with second cycle and on, her Taxol dose was changed to day 1 and day 8 but continue with Keytruda/carboplatin every 3 weeks noted some fullness in her left arm but no pain.For which she underwent left upper extremity venous Doppler study on 03/19/2019 which showed partial DVT seen within subclavian vein near the jugular. All other vessels appear free of thrombosis. Patient was evaluated in emergency room and was started on Eliquis 10 mg by mouth twice a day for 7 days which is completed on 03/26/2019 therafter 5 mg twice a day as a maintenance. And her Port-A-Cath was still functional and needed to continue with chemotherapy and then for maintenance therapy with Keytruda. Because of progressive pancytopenia her consolidation therapy with with carboplatin/Taxol/Keytruda was discontinued after 2 cycles and follow-up CT PET scan done on 05/02/2019 showed the left Mediastinal mass was 0.8 x 2.3 cm with SUV of 2.3 consistent with complete response to therapy. Inflammatory infiltrates in the anterior left upper lobe water FDG negative. The subaortic lymph node is no longer identified. No evidence of distant metastatic disease. Switched to maintenance Keytruda 200 mg every 3 weeks up to 24 months on 05/05/2019. Left lower leg swelling, for which she underwent venous Doppler study on 07/17/2019 which reported no evidence of DVT in left lower extremty came for follow-up, denies any specific complaints except mild drowsiness otherwise no fever or chills no headaches no blurred vision or double vision no nausea vomiting. Of peripheral numbness. No shortness of breath no skin rash no jaundice. Tolerating Keytruda well otherwise Medications: Abilify 0.5 Tablet (of 5 mg) Tablet Oral daily, Aspirin 1 (81 mg) Tablet Oral daily, Eliquis 1 Tablet (of 5 mg) Oral b.i.d., Gabapentin 1 Tablet (of 600 mg) Oral t.i.d. PRN, HYDROcodone-Acetaminophen 1 Tablet (of 7.5-325 mg) Oral t.i.d. PRN, LORazepam 0.5 - 1 Tablet (of 1 mg) Oral t.i.d. PRN, Wellbutrin XL 1 (300 mg) Tablet SR 24 HR Oral daily, Zoloft 1.5 Tablet (of 100 mg) Oral daily Allergies: Bactrim and Cipro. Review of Systems: Constitutional - Appetite is fair and weight is stable. Energy level is fair, ENMT - No sinus congestion/drainage. No mouth sores. No sore throat or difficulty swallowing, Hematologic/Lymphatic - No abnormal bruising or bleeding, Respiratory - Positive for occasional shortness of breath and cough, Cardiovascular - No angina pain. No palpitations, Gastrointestinal - No nausea, no vomiting. No heartburn or acid reflux. No diarrhea, no constipation. No blood in the stool or black stools, Genitourinary (F) - No urinary symptoms today, Musculoskeletal - Positive for joint pain, Neurologic - Positive for occasional dizziness and Hx of head injury, Psychiatric - Positive for anxiety/depression/insomnia. Vital Signs: Performed on Sep 15, 2019 13:33 Height - 64.00 in Weight - 129.4 lbs (LOW) BSA - 1.63 sq.m BMI - 22.21 Temperature - 97.7 F (LOW) Pulse - 49 /min (LOW) Respiration - 18 /min BP - 138/71 mm(hg) O2 Sat - 98 % Pain - 2 Performance Status: 1 - No physically strenuous activity, but ambulatory and able to carry out light or sedentary work (e.g. office work, light house work). (ECOG) Physical Examination: ENMT - No oral exudates, ulcers, masses, thrush or mucositis. Oropharynx clear. Tongue normal, Respiratory - Lungs are clear to auscultation without rhonchi or wheezing, Cardiovascular - Regular rate and rhythm of heart, Extremities - no edema. Lab/Imaging: Test performed on Aug 24, 2019 13:20 Sodium 138 mmol/L TSH 0.97 uIU/mL Potassium 3.7 mmol/L Chloride 100 mmol/L CO2 27 mmol/L Anion Gap 14.7 BUN 11 mg/dL Creatinine 0.6 mg/dL Cr Clearance (Est) 105.9600 mL/min eGFR 105.4 mL/min Glucose 99 mg/dL Calcium 9.5 mg/dL Protein, Total 7.3 g/dL Albumin 3.8 g/dL Globulin 3.5 g/dL Bilirubin, Total 0.3 mg/dL ALT (SGPT) 11 U/L AST (SGOT) 15 U/L Alkaline Phosphatase 71 IU/L WBC 5.5 10 3/uL RBC 3.54 10 6/uL HGB 10.8 g/dL HCT 32.6 % MCV 92.1 fL MCH 30.5 pg MCHC 33.1 g/dL RDW 12.6 % Platelet Count 218 10 3/cmm MPV 9.0 fL Neutrophils 3.2 10 3/uL Lymphocytes 1.0 10 3/uL Monocytes 0.6 10 3/uL Eosinophils 0.7 10 3/uL Basophils 0.0 10 3/uL Neutrophil % 58.4 % Lymphocyte % 17.3 % Monocyte % 11.3 % Eosinophil % 12.4 % Basophils % 0.4 % Test performed on Apr 15, 2019 10:50 Ferritin 357.0 ng/ml Folate, Serum 8.6 ng/mL Iron 85 ug/dL Vitamin B12 721 pg/mL % Iron Saturation 33.0 % UIBC 172 ug/dL CBC Slide Review SLIDE REVIEW PERFORM SLIDE REVIEW AGREES WITH AUTOMATED RESULTS Impression: Squamous cell carcinoma involving left paratracheal area for mediastinoscopy done on 10/29/2018 CT scan of chest abdomen pelvis done on 10/22/2018 showed large lobulated left mediastinal mass measuring 7.5 x 5.7 x 6 cm. Centered in the left paratracheal and AP window. Suspicious for confluent adenopathy. Partially encasing the left subclavian artery, aorta, left main pulmonary artery and left main stem bronchus. Subcentimeter right upper and lingular pulmonary nodules, indeterminate for metastatic disease No metastatic disease to the liver or adrenal glands No bone metastases. MRI head done on 11/19/2018 showed no evidence of metastatic disease As per radiation oncology patient still awaiting approval from Medicaid for CT PET scan History of smoking for 25 years, quit smoking on 10/21/2018. Bone scan done on 10/22/2018 showed abnormal uptake involving left mid femur through the femoral condyles. Photopenia defect in the femoral diaphysis at the site of pathological fracture consistent with malignancy. No additional bone metastases seen. CT PET scan done on 12/06/2018 shows hypermetabolic left paraMediastinal mass with SUV of 9.2 and is inseparable from the mediastinum and demonstrates invasion. A cystic 1.7 x 2.5 cm subaortic node demonstrates mild FDG activity. And left femur intramedullary kari is in place, with only mild postsurgical inflammatory activity. History of left femur fracture due to fall, status post open reduction and internal fixation done on 10/22/2018, open biopsy was negative for metastatic disease Now being referred to orthopedic oncology at [facility] for second opinion Left femur biopsy was done on 12/08/2018. Started on combined chemoradiation to the chest wall with weekly carboplatin Taxol on 11/13/2018. Per Ms Melton, radiation therapy to left femur was also added on 11/24/2018.She compared to combined chemoradiation to her chest on 01/01/2019 and also received radiation to her left femur for metastatic disease but biopsy was inconclusive Started on consolidation therapy with Keytruda/Taxol/carboplatin ???3 on 02/26/2019 Consolidation therapy was discontinued after two cycles because of progressive pancytopenia and more severe thrombocytopenia. On 03/26/2019 and follow-up CT PET scan done on 05/02/2019 showed excellent response to therapy and she was switched to maintenance therapy with Keytruda alone 200 mg every 3 weeks up to 24 months as long as tolerating and there is a no evidence of disease progression. She began her first dose of single agent pembrolizumab on 05/21/2019. She is on a 3-week cycle. She is tolerating it well thus far. Plan: Discussed with patient regarding her labs white blood count 5.8 hemoglobin 10.2 hematocrit 31.2 platelets 213,000 CMP within normal limits Clinically, patient is doing well, tolerating maintenance therapy with Keytruda well but with expected side effects. We'll proceed with the next 3 weekly dose today and then return to clinic in 3 weeks with CBC CMP As far as mild drowsiness is concerned probably due to hydrocodone on may be due to mild anemia, no focal weakness or headaches or blurred vision or double vision. Patient was advised to skip morning dose of hydrocodone, to see if with that her drowsiness improves. Signed By: Ame Morgan M.D. <<Signature on File>>
== END 2019-09-15 23:59 | disposition home or self-care (01) ==
LOC: ONCMED 06:37
PROVIDERS: Nurse Practitioner; Absent Provider Radiology Radiation Oncology; Family Provider Family Medicine; PCP Family Medicine; Visit Provider Internal Medicine Hematology & Oncology
DX: Z51.12 Encounter for antineoplastic immunotherapy (principal); C34.82 Malignant neoplasm of overlapping sites of left bronchus and lung; F32.9 Major depressive disorder, single episode, unspecified; G62.9 Polyneuropathy, unspecified; F43.10 Post-traumatic stress disorder, unspecified; F10.21 Alcohol dependence, in remission; Z79.01 Long term (current) use of anticoagulants; Z79.82 Long term (current) use of aspirin; Z79.899 Other long term (current) drug therapy; Z87.891 Personal history of nicotine dependence; Z92.21 Personal history of antineoplastic chemotherapy; Z92.3 Personal history of irradiation; Z86.718 Personal history of other venous thrombosis and embolism; Z86.19 Personal history of other infectious and parasitic diseases
CPT/HCPCS: 36591; 80053; 84443; 85025; 85378; 96413; 99214; J7050; J9271

== ENCOUNTER → 2019-09-24 08:18 | Outpatient (BNVA) | payer MEDICAID, SELFPAY | PROVIDERS: Family Provider Family Medicine; PCP Family Medicine; Visit Provider Nurse Practitioner | DX: F43.12 Post-traumatic stress disorder, chronic (principal); G25.81 Restless legs syndrome | CPT/HCPCS: 99213 ==

== ENCOUNTER 2019-10-15 06:55 | Outpatient (RCR) | payer MEDICAID, SELFPAY ==
[2019-10-14 08:05] LABS: Basophils % 0.7 %; Eosinophils # 0.6 10^3/uL (0.0-0.8); Eosinophils % 10.4 %; Hematocrit 36.9 % (37.0-47.0); Hemoglobin 11.8 g/dL (11.5-15.3); Lymphocytes # 1.1 10^3/uL (0.8-4.8); Lymphocytes % 19.9 %; Mean Corpuscular Hemoglobin 30.6 pg (28.0-34.0); Mean Corpuscular Volume 95.8 fL (81-99); Mean Platelet Volume 9.2 fL (7.4-10.4); Monocytes # 0.5 10^3/uL (0.2-0.9); Monocytes % 9.5 %; Neutrophils # 3.3 10^3/uL (1.8-7.7); Neutrophils % 59.1 %; Nucleated Red Blood Cells % 0 %; Platelet Count 237 10^3/cmm (130-400); Red Blood Count 3.85 10^6/uL (4.1-5.3); Red Cell Distribution Width 12.7 % (12.1-15.1); White Blood Count 5.6 10^3/uL (4.0-10.0)
[2019-10-14 08:32] LABS: Alanine Aminotransferase 15 U/L (0-33); Albumin Level 4.5 g/dL (3.5-5.2); Alkaline Phosphatase 76 IU/L (35-105); Anion Gap 15.6 (5-19); Aspartate Amino Transferase 20 U/L (0-32); Blood Urea Nitrogen 15 mg/dL (6-20); Calcium 9.9 mg/dL (8.5-10.5); Carbon Dioxide 29 mmol/L (22-29); Chloride 100 mmol/L (98-107); Globulin 3.3 g/dL (1.3-4.6); Glomerular Filtration Rate 105.4 mL/min (90-130); Glucose 103 mg/dL (65-115); Osmolality Calculated 289 mOsm/kg (285-295); Potassium 3.6 mmol/L (3.5-5.1); Sodium 141 mmol/L (136-145); Thyroid Stimulating Hormone 2.34 uIU/mL (0.27-4.20); Total Bilirubin 0.2 mg/dL (0.15-1.2); Total Protein 7.8 g/dL (6.6-8.7)
--- NOTE | 2019-10-15 18:02 | ONC FU_ITS ---
Dr. Morgan follow up note Patient: Tracy Melton Unit #: [id number]: [id number] Dicatated By: Ame Morgan M.D.Date of Visit:Oct 15, 2019 Onc Med Follow-up/Prog Note History of Present Illness: Mrs. Melton is a 49-year-old female who presented to [facility] [place] [facility] with left femur fracture. CT scan of the left femur showed pathological fracture of mid to distal femoral shaft with findings highly worrisome for underlying malignancy/metastatic disease. A bone scan was done on 10/22/2018. It reported abnormal uptake involving mid left femur through femoral condyles. Photopenia defect in the femoral diaphysis at the site of pathological fracture. Consistent with malignancy. No additional abnormal uptake throughout the bony skeleton to suggest the metastatic disease. Subsequently, she underwent open reduction and internal fixation on 10/22/2018. An open biopsy was obtained and it came back negative for malignancy. For further workup, Ms Melton underwent CT scan of chest abdomen pelvis on 10/22/2018. The scans showed large lobulated left mediastinal mass measuring 7.5 x 5.7 x 6 cm. Centered in the left paratracheal and AP window. Suspicious for confluent lymphadenopathy. Partially encasing the left subclavian artery, aorta, left main pulmonary artery and left main stem bronchus; Subcentimeter right upper and lingular pulmonary nodules, indeterminate for metastatic disease; Hepatic hemangioma; No metastatic disease to liver or adrenal glands; No bony lesion seen. MRI head done on 11/19/2018 showed no evidence of metastatic disease Mrs Melton underwent bronchoscopy and mediastinoscopy on 10/29/2018 and a para-aortic mass obtained via mediastinoscopy shows non-small cell lung cancer, squamous cell type. 25 year history of smoking ,quit smoking on 08/21/2018, Mrs Melton was started on combined chemoradiation to The thorax on 11/13/2018 with weekly carboplatin and Taxol. Completed combined chemoradiation on 01/01/2019. She was referred to orthopedic oncology at [facility] for biopsy-proven negative or Inconclusive as it showed scant necrotic neoplasm or but radiologically suspicious left femur pathological fracture. She had had 20 pound weight loss within [address] PET scan done on 12/06/2018 showed hypermetabolic left~mediastinal mass with SUV of 9.2 this is inseparable from mediastinum and demonstrates invasion. Asystole 1.7 x 2.5 cm sub-aortic lymph node with a mild FDG activity. Left femur intramedullary kari is in place with only mild postsurgical inflammatory activity Patient underwent left femur biopsy on 12/08/2018 and As per patient pathology was inconclusive for metastatic disease but clinical impression is still in favor of metastatic disease and she has completed radiation therapy to her femur Molecular profiling on tumor came back negative Mrs Melton on chemotherapy with carboplatin/Taxol/Keytruda ???4 on 02/25/2019, after 4 cycles, with a plan of repeating CT PET scan. If it showed good response then consider maintenance therapy with Keytruda alone Because of related side effects, with second cycle and on, her Taxol dose was changed to day 1 and day 8 but continue with Keytruda/carboplatin every 3 weeks noted some fullness in her left arm but no pain.For which she underwent left upper extremity venous Doppler study on 03/19/2019 which showed partial DVT seen within subclavian vein near the jugular. All other vessels appear free of thrombosis. Patient was evaluated in emergency room and was started on Eliquis 10 mg by mouth twice a day for 7 days which is completed on 03/26/2019 therafter 5 mg twice a day as a maintenance. And her Port-A-Cath was still functional and needed to continue with chemotherapy and then for maintenance therapy with Keytruda. Because of progressive pancytopenia her consolidation therapy with with carboplatin/Taxol/Keytruda was discontinued after 2 cycles and follow-up CT PET scan done on 05/02/2019 showed the left Mediastinal mass was 0.8 x 2.3 cm with SUV of 2.3 consistent with complete response to therapy. Inflammatory infiltrates in the anterior left upper lobe water FDG negative. The subaortic lymph node is no longer identified. No evidence of distant metastatic disease. Switched to maintenance Keytruda 200 mg every 3 weeks up to 24 months on 05/05/2019. Left lower leg swelling, for which she underwent venous Doppler study on 07/17/2019 which reported no evidence of DVT in left lower extremty Follow-up CT PET scan done on 09/26/2019 showed new left upper lobe infiltrates, most suggestive of infection then recurrence. Probable reactive prevascular lymph node Came for follow-up, denies any specific complaints, no fever or chills, no nausea or vomiting, no shortness of breath, no cough, no hemoptysis or hematemesis. Medications: Abilify 0.5 Tablet (of 5 mg) Tablet Oral daily, Aspirin 1 (81 mg) Tablet Oral daily, HYDROcodone-Acetaminophen 1 Tablet (of 7.5-325 mg) Oral t.i.d. PRN, LORazepam 0.5 - 1 Tablet (of 1 mg) Oral t.i.d. PRN, Wellbutrin XL 1 (450 mg) Tablet SR 24 HR Oral daily, Zoloft 1.5 Tablet (of 100 mg) Oral daily Allergies: Bactrim and Cipro. Review of Systems: Constitutional - Appetite is fair and weight is stable. Energy level is fair, ENMT - No sinus congestion/drainage. No mouth sores. No sore throat or difficulty swallowing, Hematologic/Lymphatic - No abnormal bruising or bleeding, Respiratory - Positive for occasional shortness of breath and cough, Cardiovascular - No angina pain. No palpitations, Gastrointestinal - No nausea, no vomiting. No heartburn or acid reflux. No diarrhea, no constipation. No blood in the stool or black stools, Genitourinary (F) - No urinary symptoms today, Musculoskeletal - Positive for joint pain, Neurologic - Positive for occasional dizziness and Hx of head injury, Psychiatric - Positive for anxiety/depression/insomnia. Vital Signs: Performed on Oct 15, 2019 12:48 Height - 64.00 in Weight - 134.2 lbs (HIGH) BSA - 1.65 sq.m BMI - 23.04 Temperature - 97.1 F (LOW) Pulse - 95 /min Respiration - 17 /min BP - 120/73 mm(hg) O2 Sat - 98 % Pain - 3 Performance Status: 1 - No physically strenuous activity, but ambulatory and able to carry out light or sedentary work (e.g. office work, light house work). (ECOG) Physical Examination: ENMT - no mouth sores, Respiratory - Lungs are clear, Cardiovascular - Regular rate and rhythm of heart, Abdomen - bowel sounds present, nontender, Extremities - no visible edema. Lab/Imaging: Test performed on Aug 24, 2019 13:20 Sodium 138 mmol/L TSH 0.97 uIU/mL Potassium 3.7 mmol/L Chloride 100 mmol/L CO2 27 mmol/L Anion Gap 14.7 BUN 11 mg/dL Creatinine 0.6 mg/dL Cr Clearance (Est) 105.9600 mL/min eGFR 105.4 mL/min Glucose 99 mg/dL Calcium 9.5 mg/dL Protein, Total 7.3 g/dL Albumin 3.8 g/dL Globulin 3.5 g/dL Bilirubin, Total 0.3 mg/dL ALT (SGPT) 11 U/L AST (SGOT) 15 U/L Alkaline Phosphatase 71 IU/L WBC 5.5 10 3/uL RBC 3.54 10 6/uL HGB 10.8 g/dL HCT 32.6 % MCV 92.1 fL MCH 30.5 pg MCHC 33.1 g/dL RDW 12.6 % Platelet Count 218 10 3/cmm MPV 9.0 fL Neutrophils 3.2 10 3/uL Lymphocytes 1.0 10 3/uL Monocytes 0.6 10 3/uL Eosinophils 0.7 10 3/uL Basophils 0.0 10 3/uL Neutrophil % 58.4 % Lymphocyte % 17.3 % Monocyte % 11.3 % Eosinophil % 12.4 % Basophils % 0.4 % Impression: Squamous cell carcinoma involving left paratracheal area for mediastinoscopy done on 10/29/2018 CT scan of chest abdomen pelvis done on 10/22/2018 showed large lobulated left mediastinal mass measuring 7.5 x 5.7 x 6 cm. Centered in the left paratracheal and AP window. Suspicious for confluent adenopathy. Partially encasing the left subclavian artery, aorta, left main pulmonary artery and left main stem bronchus. Subcentimeter right upper and lingular pulmonary nodules, indeterminate for metastatic disease No metastatic disease to the liver or adrenal glands No bone metastases. MRI head done on 11/19/2018 showed no evidence of metastatic disease As per radiation oncology patient still awaiting approval from Medicaid for CT PET scan History of smoking for 25 years, quit smoking on 10/21/2018. Bone scan done on 10/22/2018 showed abnormal uptake involving left mid femur through the femoral condyles. Photopenia defect in the femoral diaphysis at the site of pathological fracture consistent with malignancy. No additional bone metastases seen. CT PET scan done on 12/06/2018 shows hypermetabolic left paraMediastinal mass with SUV of 9.2 and is inseparable from the mediastinum and demonstrates invasion. A cystic 1.7 x 2.5 cm subaortic node demonstrates mild FDG activity. And left femur intramedullary kari is in place, with only mild postsurgical inflammatory activity. History of left femur fracture due to fall, status post open reduction and internal fixation done on 10/22/2018, open biopsy was negative for metastatic disease Now being referred to orthopedic oncology at [facility] for second opinion Left femur biopsy was done on 12/08/2018. Started on combined chemoradiation to the chest wall with weekly carboplatin Taxol on 11/13/2018. Per Ms Melton, radiation therapy to left femur was also added on 11/24/2018.She compared to combined chemoradiation to her chest on 01/01/2019 and also received radiation to her left femur for metastatic disease but biopsy was inconclusive Started on consolidation therapy with Keytruda/Taxol/carboplatin ???3 on 02/26/2019 Consolidation therapy was discontinued after two cycles because of progressive pancytopenia and more severe thrombocytopenia. On 03/26/2019 and follow-up CT PET scan done on 05/02/2019 showed excellent response to therapy and she was switched to maintenance therapy with Keytruda alone 200 mg every 3 weeks up to 24 months as long as tolerating and there is a no evidence of disease progression. She began her first dose of single agent pembrolizumab on 05/21/2019. She is on a 3-week cycle. She is tolerating it well thus far. Plan: Discussed with patient regarding her labs white blood count 5.6 hemoglobin 11.8 crit 36.9 platelets 237,000 CMP within normal limits and CT PET scan showed there are several new peripheral left upper lobe infiltrates with FDG activity these appears more consistent with active pneumonia then recurrence and similar alveolar infiltrates is noted in the superior segment of left lower lobe with SUV of 7.5. A prevascular node is mildly FDG positive may be reactive. Clinically, patient is doing well with no signs symptoms suggestive of disease progression, tolerating immunotherapy with Keytruda well. Her follow-up CT PET scan shows no active sign of disease but new infiltrate in the left lung, etiology unclear could be infectious but patient has no symptoms suggestive of infection and she has no symptoms otherwise too, other possibility could be radiation recall e.g. radiation induced pneumonitis or immunotherapy related pneumonitis. We will hold her immunotherapy today and refer her to pulmonology for evaluation. And we'll see her back after pulmonary consultation and then based on their finding, will discuss about observation alone versus continue with maintenance immunotherapy. Signed By: Ame Morgan M.D. <<Signature on File>>
== END 2019-10-15 23:59 | disposition home or self-care (01) ==
LOC: ONCMED 06:55
PROVIDERS: Family Provider Family Medicine; PCP Family Medicine; Visit Provider Internal Medicine Hematology & Oncology
DX: C34.82 Malignant neoplasm of overlapping sites of left bronchus and lung (principal); R91.8 Other nonspecific abnormal finding of lung field; Z87.891 Personal history of nicotine dependence; Z87.311 Personal history of (healed) other pathological fracture; Z92.3 Personal history of irradiation
CPT/HCPCS: 80053; 84443; 85025; 99214

== ENCOUNTER 2019-11-11 06:41 | Outpatient (RCR) | payer MEDICAID, SELFPAY ==
[2019-10-29 11:59] LABS: Basophils % 0.2 %; Eosinophils # 0.6 10^3/uL (0.0-0.8); Eosinophils % 6.6 %; Hematocrit 38.9 % (37.0-47.0); Hemoglobin 12.7 g/dL (11.5-15.3); Lymphocytes # 2.1 10^3/uL (0.8-4.8); Lymphocytes % 23.2 %; Mean Corpuscular HGB Conc 32.6 g/dL (30.0-36.0); Mean Corpuscular Hemoglobin 31.4 pg (28.0-34.0); Mean Platelet Volume 8.9 fL (7.4-10.4); Monocytes % 11.6 %; Neutrophils # 5.2 10^3/uL (1.8-7.7); Neutrophils % 58.1 %; Nucleated Red Blood Cells % 0 %; Platelet Count 284 10^3/cmm (130-400); Red Blood Count 4.05 10^6/uL (4.1-5.3); Red Cell Distribution Width 12.4 % (12.1-15.1); White Blood Count 8.9 10^3/uL (4.0-10.0)
[2019-10-29 13:12] LABS: Alanine Aminotransferase 18 U/L (0-33); Albumin Level 4.3 g/dL (3.5-5.2); Alkaline Phosphatase 73 IU/L (35-105); Anion Gap 19.6 (5-19); Aspartate Amino Transferase 20 U/L (0-32); Blood Urea Nitrogen 11 mg/dL (6-20); Calcium 10.4 mg/dL (8.5-10.5); Carbon Dioxide 26 mmol/L (22-29); Chloride 100 mmol/L (98-107); Globulin 3.5 g/dL (1.3-4.6); Glomerular Filtration Rate 105.4 mL/min (90-130); Glucose 77 mg/dL (65-115); Osmolality Calculated 289 mOsm/kg (285-295); Potassium 3.6 mmol/L (3.5-5.1); Sodium 142 mmol/L (136-145); Total Bilirubin 0.2 mg/dL (0.15-1.2); Total Protein 7.8 g/dL (6.6-8.7)
--- NOTE | 2019-11-11 17:38 | ONC FU_ITS ---
Dr. Morgan follow up note Patient: Tracy Melton Unit #: [id number]: [id number] Dicatated By: Ame Morgan M.D.Date of Visit:November 11, 2019 Onc Med Follow-up/Prog Note History of Present Illness: Mrs. Melton is a 49-year-old female who presented to [facility] with left femur fracture. CT scan of the left femur showed pathological fracture of mid to distal femoral shaft with findings highly worrisome for underlying malignancy/metastatic disease. A bone scan was done on 10/22/2018. It reported abnormal uptake involving mid left femur through femoral condyles. Photopenia defect in the femoral diaphysis at the site of pathological fracture. Consistent with malignancy. No additional abnormal uptake throughout the bony skeleton to suggest the metastatic disease. Subsequently, she underwent open reduction and internal fixation on 10/22/2018. An open biopsy was obtained and it came back negative for malignancy. For further workup, Ms Melton underwent CT scan of chest abdomen pelvis on 10/22/2018. The scans showed large lobulated left mediastinal mass measuring 7.5 x 5.7 x 6 cm. Centered in the left paratracheal and AP window. Suspicious for confluent lymphadenopathy. Partially encasing the left subclavian artery, aorta, left main pulmonary artery and left main stem bronchus; Subcentimeter right upper and lingular pulmonary nodules, indeterminate for metastatic disease; Hepatic hemangioma; No metastatic disease to liver or adrenal glands; No bony lesion seen. MRI head done on 11/19/2018 showed no evidence of metastatic disease Mrs Melton underwent bronchoscopy and mediastinoscopy on 10/29/2018 and a para-aortic mass obtained via mediastinoscopy shows non-small cell lung cancer, squamous cell type. 25 year history of smoking ,quit smoking on 08/21/2018, Mrs Melton was started on combined chemoradiation to The thorax on 11/13/2018 with weekly carboplatin and Taxol. Completed combined chemoradiation on 01/01/2019. She was referred to orthopedic oncology at [facility] for biopsy-proven negative or Inconclusive as it showed scant necrotic neoplasm or but radiologically suspicious left femur pathological fracture. She had had 20 pound weight loss within [address] PET scan done on 12/06/2018 showed hypermetabolic left~mediastinal mass with SUV of 9.2 this is inseparable from mediastinum and demonstrates invasion. Asystole 1.7 x 2.5 cm sub-aortic lymph node with a mild FDG activity. Left femur intramedullary kari is in place with only mild postsurgical inflammatory activity Patient underwent left femur biopsy on 12/08/2018 and As per patient pathology was inconclusive for metastatic disease but clinical impression is still in favor of metastatic disease and she has completed radiation therapy to her femur Molecular profiling on tumor came back negative Mrs Melton on chemotherapy with carboplatin/Taxol/Keytruda ???4 on 02/25/2019, after 4 cycles, with a plan of repeating CT PET scan. If it showed good response then consider maintenance therapy with Keytruda alone Because of related side effects, with second cycle and on, her Taxol dose was changed to day 1 and day 8 but continue with Keytruda/carboplatin every 3 weeks noted some fullness in her left arm but no pain.For which she underwent left upper extremity venous Doppler study on 03/19/2019 which showed partial DVT seen within subclavian vein near the jugular. All other vessels appear free of thrombosis. Patient was evaluated in emergency room and was started on Eliquis 10 mg by mouth twice a day for 7 days which is completed on 03/26/2019 therafter 5 mg twice a day as a maintenance. And her Port-A-Cath was still functional and needed to continue with chemotherapy and then for maintenance therapy with Keytruda. Because of progressive pancytopenia her consolidation therapy with with carboplatin/Taxol/Keytruda was discontinued after 2 cycles and follow-up CT PET scan done on 05/02/2019 showed the left Mediastinal mass was 0.8 x 2.3 cm with SUV of 2.3 consistent with complete response to therapy. Inflammatory infiltrates in the anterior left upper lobe water FDG negative. The subaortic lymph node is no longer identified. No evidence of distant metastatic disease. Switched to maintenance Keytruda 200 mg every 3 weeks up to 24 months on 05/05/2019. Left lower leg swelling, for which she underwent venous Doppler study on 07/17/2019 which reported no evidence of DVT in left lower extremty Follow-up CT PET scan done on 09/26/2019 showed new left upper lobe infiltrates, most suggestive of infection then recurrence. 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 Terry orthopedics, no fever or chills, no nausea or vomiting, no wheezing no hemoptysis or hematemesis. No skin rash, no diarrhea. Immunotherapy with Keytruda is on hold since 09/15/2019 Medications: Abilify 0.5 Tablet (of 5 mg) Tablet Oral daily, Aspirin 1 (81 mg) Tablet Oral daily, HYDROcodone-Acetaminophen 1 Tablet (of 7.5-325 mg) Oral t.i.d. PRN, LORazepam 0.5 - 1 Tablet (of 1 mg) Oral t.i.d. PRN, Wellbutrin XL 1 (300 mg) Tablet SR 24 HR Oral daily, Zoloft 1.5 Tablet (of 100 mg) Oral daily Allergies: Bactrim and Cipro. Review of Systems: Review of Systems is not available for this patient. Vital Signs: Performed on November 11, 2019 14:47 Height - 64.00 in Weight - 137.2 lbs (HIGH) BSA - 1.67 sq.m BMI - 23.55 Temperature - 98.4 F Pulse - 87 /min Respiration - 20 /min BP - 109/61 mm(hg) O2 Sat - 99 % Pain - 4 Performance Status: 1 - No physically strenuous activity, but ambulatory and able to carry out light or sedentary work (e.g. office work, light house work). (ECOG) Physical Examination: ENMT - no mouth sores, no thrush, Respiratory - Lungs are clear, Cardiovascular - Regular rate and rhythm of heart, Abdomen - soft, bowel sounds present, Extremities - no edema or rash. Lab/Imaging: Test performed on October 29, 2019 11:05 Sodium 142 mmol/L TSH 2.90 uIU/mL Potassium 3.6 mmol/L Chloride 100 mmol/L CO2 26 mmol/L Anion Gap 19.6 BUN 11 mg/dL Creatinine 0.6 mg/dL Cr Clearance (Est) 106.6000 mL/min eGFR 105.4 mL/min Glucose 77 mg/dL Calcium 10.4 mg/dL Protein, Total 7.8 g/dL Albumin 4.3 g/dL Globulin 3.5 g/dL Bilirubin, Total 0.2 mg/dL ALT (SGPT) 18 U/L AST (SGOT) 20 U/L Alkaline Phosphatase 73 IU/L WBC 8.9 10 3/uL RBC 4.05 10 6/uL HGB 12.7 g/dL HCT 38.9 % MCV 96.0 fL MCH 31.4 pg MCHC 32.6 g/dL RDW 12.4 % Platelet Count 284 10 3/cmm MPV 8.9 fL Neutrophils 5.2 10 3/uL Lymphocytes 2.1 10 3/uL Monocytes 1.0 10 3/uL Eosinophils 0.6 10 3/uL Basophils 0.0 10 3/uL Neutrophil % 58.1 % Lymphocyte % 23.2 % Monocyte % 11.6 % Eosinophil % 6.6 % Basophils % 0.2 % Impression: Squamous cell carcinoma involving left paratracheal area for mediastinoscopy done on 10/29/2018 CT scan of chest abdomen pelvis done on 10/22/2018 showed large lobulated left mediastinal mass measuring 7.5 x 5.7 x 6 cm. Centered in the left paratracheal and AP window. Suspicious for confluent adenopathy. Partially encasing the left subclavian artery, aorta, left main pulmonary artery and left main stem bronchus. Subcentimeter right upper and lingular pulmonary nodules, indeterminate for metastatic disease No metastatic disease to the liver or adrenal glands No bone metastases. MRI head done on 11/19/2018 showed no evidence of metastatic disease As per radiation oncology patient still awaiting approval from Medicaid for CT PET scan History of smoking for 25 years, quit smoking on 10/21/2018. Bone scan done on 10/22/2018 showed abnormal uptake involving left mid femur through the femoral condyles. Photopenia defect in the femoral diaphysis at the site of pathological fracture consistent with malignancy. No additional bone metastases seen. CT PET scan done on 12/06/2018 shows hypermetabolic left paraMediastinal mass with SUV of 9.2 and is inseparable from the mediastinum and demonstrates invasion. A cystic 1.7 x 2.5 cm subaortic node demonstrates mild FDG activity. And left femur intramedullary kari is in place, with only mild postsurgical inflammatory activity. History of left femur fracture due to fall, status post open reduction and internal fixation done on 10/22/2018, open biopsy was negative for metastatic disease Now being referred to orthopedic oncology at [facility] for second opinion Left femur biopsy was done on 12/08/2018. Started on combined chemoradiation to the chest wall with weekly carboplatin Taxol on 11/13/2018. Per Ms Melton, radiation therapy to left femur was also added on 11/24/2018.She compared to combined chemoradiation to her chest on 01/01/2019 and also received radiation to her left femur for metastatic disease but biopsy was inconclusive Started on consolidation therapy with Keytruda/Taxol/carboplatin ???3 on 02/26/2019 Consolidation therapy was discontinued after two cycles because of progressive pancytopenia and more severe thrombocytopenia. On 03/26/2019 and follow-up CT PET scan done on 05/02/2019 showed excellent response to therapy and she was switched to maintenance therapy with Keytruda alone 200 mg every 3 weeks up to 24 months as long as tolerating and there is a no evidence of disease progression. She began her first dose of single agent pembrolizumab on 05/21/2019. She is on a 3-week cycle. She is tolerating it well thus far. Plan: Discussed with patient regarding her labs white blood count 8.9 hemoglobin 12.7 crit 38.9 platelets 284,000 CMP within normal limits TSH 2.90 Clinically, patient is doing well, her mild shortness of breath is improving, could be due to new bronchodilator prescribed by pulmonology or resolving radiation recall pneumonitis. We will continue to hold her Keytruda and now schedule her for follow-up CT scan of chest abdomen compared with CT PET scan done in September 2019, to see if there is improvement in possible radiation recall pneumonitis. If there is improvement then we will continue with Keytruda and monitor her closely for radiation recall pneumonitis, if there are persistent changes, will discuss with pulmonology regarding role of bronchoscopy/biopsy. Patient return to clinic after CT scan of chest done for further discussion. Signed By: Ame Morgan M.D. <<Signature on File>>
== END 2019-11-15 23:59 | disposition home or self-care (01) ==
LOC: ONCMED 06:41
PROVIDERS: PCP Family Medicine; Visit Provider Internal Medicine Hematology & Oncology
DX: C34.82 Malignant neoplasm of overlapping sites of left bronchus and lung (principal); M84.452D Pathological fracture, left femur, subsequent encounter for fracture with routine healing; F32.9 Major depressive disorder, single episode, unspecified; G62.9 Polyneuropathy, unspecified; F43.10 Post-traumatic stress disorder, unspecified; Z86.19 Personal history of other infectious and parasitic diseases; Z87.891 Personal history of nicotine dependence
CPT/HCPCS: 80053; 84443; 85025; 99214

== ENCOUNTER 2019-11-24 13:29 | Outpatient (CLI) | payer MEDICAID, SELFPAY ==
--- NOTE | 2019-11-24 13:45 | MR_ITS ---
WS: [id number] MRI LEFT KNEE HISTORY: M25.862 Other specified joint disorders, left knee COMPARISON: 11/16/2019 radiographs Anterior cruciate ligament: Intact. Posterior cruciate ligament: Intact. Medial collateral ligament: Intact. Posterior lateral corner structures: Intact. Medial menisci: Intact. Normal signal, size and shape. Lateral meniscus: Intact. Normal signal, size and shape. Extensor mechanism: Distal quadriceps tendon and patellar tendons are intact. Fluid and soft tissue: Very small suprapatellar joint effusion. There is a very small amount of fluid in Kinney's cyst. There is more significant soft tissue edema surrounding the knee extending above an d below the knee joint without a focal collection. Osseous and articular structures: Patellofemoral compartment: Normal. Medial compartment: Normal. Lateral compartment: Normal. Metallic artifact resulting in some limitations on several of the sequences through the knee. There i s hardware in the distal femur. MR/MR knee LT wo con* [id number] IMPRESSION: 1. Moderate diffuse soft tissue edema surrounding the knee. 2. Small suprapatellar effusion and small Kinney's cyst. 3. No meniscal tear at notified.
== END 2019-11-24 13:30 | disposition home or self-care (01) ==
LOC: RADSHAW 13:32
PROVIDERS: Visit Provider Specialist
DX: M25.862 Other specified joint disorders, left knee (principal); M25.462 Effusion, left knee; M71.22 Synovial cyst of popliteal space [Baker], left knee
CPT/HCPCS: 73721

== ENCOUNTER 2019-12-04 12:38 | Outpatient (CLI) | payer MEDICAID, SELFPAY ==
--- NOTE | 2019-12-04 12:43 | CT_ITS ---
WS: [id number] CT chest w con* [id number] REASON FOR EXAM: LUNG CANCER IV CONTRAST ADMINISTERED: Omnipaque 300, 95 mL TOTAL EXAM DLP: 407.[address] scans at [facility] use at least one of these dose optimization techniques: automat ed exposure control; mA and/or kV adjustment per patient size (includes targeted exams where dose is matched to clinical indication); or iterative reconstruction. FINDINGS: The thyroid gland enhance normally. No supraclavicular lymphadenopathy is seen. The axilla did not show gross lymphadenopathy. There is evidence of deformity of the left apex of the lungs suggesting previous resection. No defini te renal recurrent lesions are seen there is scar tissue noted. The pulmonary arteries were normal no evidence of thromboembolic changes. The mediastinum showed normal aorta. No aneurysms. The heart chambers were all within normal limits. The liver was normal The right left adrenal glands were normal. Perfusion of the remaining lungs bilaterally are seen. In the left lower lung there is scar area this is similar to previous exam of July 08, 2019. No definite recurrent masses or neoplasms seen. There is bullae seen in both apices of the lungs bilaterally. Plan the scar tissue in the aortic window on the left side and mass defects have not changed since th e earlier exam of aortic 2021 date the soft tissue measures 4.5 cm but does not appear to show g ross deformity CT/CT chest w con* [id number] IMPRESSION: The left paratracheal and AP window soft tissue mass appears to be slightly lar casie than previous exam on the left side. There is no new lymphadenopathy seen There is scarring seen in the upper lung. No definite metastatic changes noted.
[2019-12-04] MEDS: iohexol 300 mg/mL 100 mL Btl IV (13:10)
== END 2019-12-04 12:39 | disposition home or self-care (01) ==
LOC: CT 12:38
PROVIDERS: Visit Provider Internal Medicine Hematology & Oncology
DX: C34.82 Malignant neoplasm of overlapping sites of left bronchus and lung (principal)
CPT/HCPCS: 71260

== ENCOUNTER 2019-12-08 06:57 | Outpatient (RCR) | payer MEDICAID, SELFPAY ==
--- NOTE | 2019-12-10 17:28 | ONC FU_ITS ---
Dr. Morgan follow up note Patient: Tracy Melton Unit #: [id number]: 1970 Dicatated By: Ame Morgan M.D.Date of Visit:Dec 08, 2019 Onc Med Follow-up/Prog Note History of Present Illness: Mrs. Melton is a 49-year-old female who presented to [facility] with left femur fracture. CT scan of the left femur showed pathological fracture of mid to distal femoral shaft with findings highly worrisome for underlying malignancy/metastatic disease. A bone scan was done on 10/22/2018. It reported abnormal uptake involving mid left femur through femoral condyles. Photopenia defect in the femoral diaphysis at the site of pathological fracture. Consistent with malignancy. No additional abnormal uptake throughout the bony skeleton to suggest the metastatic disease. Subsequently, she underwent open reduction and internal fixation on 10/22/2018. An open biopsy was obtained and it came back negative for malignancy. For further workup, Ms Melton underwent CT scan of chest abdomen pelvis on 10/22/2018. The scans showed large lobulated left mediastinal mass measuring 7.5 x 5.7 x 6 cm. Centered in the left paratracheal and AP window. Suspicious for confluent lymphadenopathy. Partially encasing the left subclavian artery, aorta, left main pulmonary artery and left main stem bronchus; Subcentimeter right upper and lingular pulmonary nodules, indeterminate for metastatic disease; Hepatic hemangioma; No metastatic disease to liver or adrenal glands; No bony lesion seen. MRI head done on 11/19/2018 showed no evidence of metastatic disease Mrs Melton underwent bronchoscopy and mediastinoscopy on 10/29/2018 and a para-aortic mass obtained via mediastinoscopy shows non-small cell lung cancer, squamous cell type. 25 year history of smoking ,quit smoking on 08/21/2018, Mrs Melton was started on combined chemoradiation to The thorax on 11/13/2018 with weekly carboplatin and Taxol. Completed combined chemoradiation on 01/01/2019. She was referred to orthopedic oncology at [facility] for biopsy-proven negative or Inconclusive as it showed scant necrotic neoplasm or but radiologically suspicious left femur pathological fracture. She had had 20 pound weight loss within [address] PET scan done on 12/06/2018 showed hypermetabolic left~mediastinal mass with SUV of 9.2 this is inseparable from mediastinum and demonstrates invasion. Asystole 1.7 x 2.5 cm sub-aortic lymph node with a mild FDG activity. Left femur intramedullary kari is in place with only mild postsurgical inflammatory activity Patient underwent left femur biopsy on 12/08/2018 and As per patient pathology was inconclusive for metastatic disease but clinical impression is still in favor of metastatic disease and she has completed radiation therapy to her femur Molecular profiling on tumor came back negative Mrs Melton on chemotherapy with carboplatin/Taxol/Keytruda ???4 on 02/25/2019, after 4 cycles, with a plan of repeating CT PET scan. If it showed good response then consider maintenance therapy with Keytruda alone Because of related side effects, with second cycle and on, her Taxol dose was changed to day 1 and day 8 but continue with Keytruda/carboplatin every 3 weeks noted some fullness in her left arm but no pain.For which she underwent left upper extremity venous Doppler study on 03/19/2019 which showed partial DVT seen within subclavian vein near the jugular. All other vessels appear free of thrombosis. Patient was evaluated in emergency room and was started on Eliquis 10 mg by mouth twice a day for 7 days which is completed on 03/26/2019 therafter 5 mg twice a day as a maintenance. And her Port-A-Cath was still functional and needed to continue with chemotherapy and then for maintenance therapy with Keytruda. Because of progressive pancytopenia her consolidation therapy with with carboplatin/Taxol/Keytruda was discontinued after 2 cycles and follow-up CT PET scan done on 05/02/2019 showed the left Mediastinal mass was 0.8 x 2.3 cm with SUV of 2.3 consistent with complete response to therapy. Inflammatory infiltrates in the anterior left upper lobe water FDG negative. The subaortic lymph node is no longer identified. No evidence of distant metastatic disease. Switched to maintenance Keytruda 200 mg every 3 weeks up to 24 months on 05/05/2019. Left lower leg swelling, for which she underwent venous Doppler study on 07/17/2019 which reported no evidence of DVT in left lower extremty Follow-up CT PET scan done on 09/26/2019 showed new left upper lobe infiltrates, most suggestive of infection then recurrence. Probable reactive prevascular lymph node And other concern was radiation recall pneumonitis , so decided to hold immunotherapy and she was referred to pulmonology and she was evaluated on 10/27/2019 and his impression was finding consistent with radiation-induced changes.And new bronchodilator was added Immunotherapy with Keytruda is on hold since 09/15/2019, After reviewing CT scan of chest done on December 04, 2019, Keytruda was restarted on December 08, 2019 Follow-up CT scan of chest done on December 04, 2019 showed left paratracheal and AP window soft tissue mass appears to be slightly larger than previous exam, as mentioned in the impression back in description, it says 4.5 cm mass does not appear to shows any gross deformity or change when compared with previous exam. Done on July 08, 2019. Mediastinum is normal Case was discussed with Dr. De La Cruz radiologist and her impression was pneumonitis seen earlier is better, no significant change compared to previous scan and recommended follow-up CT PET scan in 3 months. Came for follow-up, patient denies any specific complaint today, no nausea no vomiting no fever no chills no diarrhea or constipation, no skin rash, no shortness of breath. No hemoptysis or hematemesis Medications: Abilify 0.5 Tablet (of 5 mg) Tablet Oral daily, Aspirin 1 (81 mg) Tablet Oral daily, HYDROcodone-Acetaminophen 1 Tablet (of 7.5-325 mg) Oral t.i.d. PRN, LORazepam 0.5 - 1 Tablet (of 1 mg) Oral t.i.d. PRN, Wellbutrin XL 1 (300 mg) Tablet SR 24 HR Oral daily, Zoloft 1.5 Tablet (of 100 mg) Oral daily Allergies: Bactrim and Cipro. Review of Systems: Constitutional - Appetite is fair and weight is stable. Energy level is fair, ENMT - No sinus congestion/drainage. No mouth sores. No sore throat or difficulty swallowing, Hematologic/Lymphatic - No abnormal bruising or bleeding, Respiratory - Positive for occasional shortness of breath and cough, Cardiovascular - No angina pain. No palpitations, Gastrointestinal - No nausea, no vomiting. No heartburn or acid reflux. No diarrhea, no constipation. No blood in the stool or black stools, Genitourinary (F) - No urinary symptoms today, Musculoskeletal - Positive for joint pain, Neurologic - Positive for occasional dizziness and Hx of head injury, Psychiatric - Positive for anxiety/depression/insomnia. Vital Signs: Performed on Dec 08, 2019 09:10 Height - 64.00 in Weight - 137.0 lbs (LOW) BSA - 1.67 sq.m BMI - 23.52 Temperature - 97.9 F (LOW) Pulse - 90 /min Respiration - 18 /min BP - 117/70 mm(hg) O2 Sat - 98 % Pain - 7 Performance Status: 1 - No physically strenuous activity, but ambulatory and able to carry out light or sedentary work (e.g. office work, light house work). (ECOG) Physical Examination: ENMT - No mouth sores, no thrush no jaundice, Respiratory - .Poor air entry otherwise clear, Cardiovascular - Regular rate and rhythm of heart, Abdomen - Soft, bowel sounds present, Extremities - No edema or rash. Lab/Imaging: Test performed on October 29, 2019 11:05 Sodium 142 mmol/L TSH 2.90 uIU/mL Potassium 3.6 mmol/L Chloride 100 mmol/L CO2 26 mmol/L Anion Gap 19.6 BUN 11 mg/dL Creatinine 0.6 mg/dL Cr Clearance (Est) 106.6000 mL/min eGFR 105.4 mL/min Glucose 77 mg/dL Calcium 10.4 mg/dL Protein, Total 7.8 g/dL Albumin 4.3 g/dL Globulin 3.5 g/dL Bilirubin, Total 0.2 mg/dL ALT (SGPT) 18 U/L AST (SGOT) 20 U/L Alkaline Phosphatase 73 IU/L WBC 8.9 10 3/uL RBC 4.05 10 6/uL HGB 12.7 g/dL HCT 38.9 % MCV 96.0 fL MCH 31.4 pg MCHC 32.6 g/dL RDW 12.4 % Platelet Count 284 10 3/cmm MPV 8.9 fL Neutrophils 5.2 10 3/uL Lymphocytes 2.1 10 3/uL Monocytes 1.0 10 3/uL Eosinophils 0.6 10 3/uL Basophils 0.0 10 3/uL Neutrophil % 58.1 % Lymphocyte % 23.2 % Monocyte % 11.6 % Eosinophil % 6.6 % Basophils % 0.2 % Impression: Squamous cell carcinoma involving left paratracheal area for mediastinoscopy done on 10/29/2018 CT scan of chest abdomen pelvis done on 10/22/2018 showed large lobulated left mediastinal mass measuring 7.5 x 5.7 x 6 cm. Centered in the left paratracheal and AP window. Suspicious for confluent adenopathy. Partially encasing the left subclavian artery, aorta, left main pulmonary artery and left main stem bronchus. Subcentimeter right upper and lingular pulmonary nodules, indeterminate for metastatic disease No metastatic disease to the liver or adrenal glands No bone metastases. MRI head done on 11/19/2018 showed no evidence of metastatic disease As per radiation oncology patient still awaiting approval from Medicaid for CT PET scan History of smoking for 25 years, quit smoking on 10/21/2018. Bone scan done on 10/22/2018 showed abnormal uptake involving left mid femur through the femoral condyles. Photopenia defect in the femoral diaphysis at the site of pathological fracture consistent with malignancy. No additional bone metastases seen. CT PET scan done on 12/06/2018 shows hypermetabolic left paraMediastinal mass with SUV of 9.2 and is inseparable from the mediastinum and demonstrates invasion. A cystic 1.7 x 2.5 cm subaortic node demonstrates mild FDG activity. And left femur intramedullary kari is in place, with only mild postsurgical inflammatory activity. History of left femur fracture due to fall, status post open reduction and internal fixation done on 10/22/2018, open biopsy was negative for metastatic disease Now being referred to orthopedic oncology at [facility] for second opinion Left femur biopsy was done on 12/08/2018. Started on combined chemoradiation to the chest wall with weekly carboplatin Taxol on 11/13/2018. Per Geronimo, radiation therapy to left femur was also added on 11/24/2018.She compared to combined chemoradiation to her chest on 01/01/2019 and also received radiation to her left femur for metastatic disease but biopsy was inconclusive Started on consolidation therapy with Keytruda/Taxol/carboplatin ???3 on 02/26/2019 Consolidation therapy was discontinued after two cycles because of progressive pancytopenia and more severe thrombocytopenia. On 03/26/2019 and follow-up CT PET scan done on 05/02/2019 showed excellent response to therapy and she was switched to maintenance therapy with Keytruda alone 200 mg every 3 weeks up to 24 months as long as tolerating and there is a no evidence of disease progression. She began her first dose of single agent pembrolizumab on 05/21/2019. She is on a 3-week cycle. She is tolerating it well thus far. Plan: Discussed with patient regarding her CT scan of the chest findings which showed persistent left paratracheal/AP window soft tissue mass when read by Dr. Jefry Grimaldo, radiologist's impression was in description, it was stable but in impression he mentioned the soft tissue mass appears to be slightly enlarged when compared with CT scan done on July 08, 2019. Scan was discussed with Dr. De La Cruz radiologist today her impression was that shadow is somewhat same, pneumonitis is better and she recommended follow-up CT PET scan in 3 months. Discussed with patient in that case patient agreed to resume maintenance therapy with Keytruda and will restart her immunotherapy today and then she will return to clinic in 3 weeks with CBC CMP and will consider CT PET scan after 3 doses. Signed By: Ame Morgan M.D. <<Signature on File>>
== END 2019-12-15 23:59 | disposition home or self-care (01) ==
LOC: ONCMED 06:57
PROVIDERS: Visit Provider Internal Medicine Hematology & Oncology
DX: Z51.12 Encounter for antineoplastic immunotherapy (principal); C34.82 Malignant neoplasm of overlapping sites of left bronchus and lung; M84.452A Pathological fracture, left femur, initial encounter for fracture; F32.9 Major depressive disorder, single episode, unspecified; G62.9 Polyneuropathy, unspecified; F43.10 Post-traumatic stress disorder, unspecified; Z86.19 Personal history of other infectious and parasitic diseases; Z79.899 Other long term (current) drug therapy
CPT/HCPCS: 73560; 96413; 99214; J7050; J9271

== ENCOUNTER → 2019-12-21 07:36 | Outpatient (BNVA) | payer MEDICAID, SELFPAY | PROVIDERS: Visit Provider Nurse Practitioner | DX: F43.12 Post-traumatic stress disorder, chronic (principal) | CPT/HCPCS: 99213 ==

== ENCOUNTER 2019-12-29 06:42 | Outpatient (RCR) | payer MEDICAID, SELFPAY ==
[2019-12-28 09:41] LABS: Basophils % 0.3 %; Eosinophils # 0.4 10^3/uL (0.0-0.8); Eosinophils % 5.5 %; Hemoglobin 12.5 g/dL (11.5-15.3); Lymphocytes # 1.6 10^3/uL (0.8-4.8); Mean Corpuscular HGB Conc 32.9 g/dL (30.0-36.0); Mean Corpuscular Hemoglobin 31.7 pg (28.0-34.0); Mean Corpuscular Volume 96.4 fL (81-99); Mean Platelet Volume 9.1 fL (7.4-10.4); Monocytes # 0.8 10^3/uL (0.2-0.9); Monocytes % 11.7 %; Neutrophils # 3.73 10^3/uL (1.8-7.7); Neutrophils % 57.2 %; Nucleated Red Blood Cells % 0 %; Platelet Count 241 10^3/cmm (130-400); Red Blood Count 3.94 10^6/uL (4.1-5.3); Red Cell Distribution Width 12.9 % (12.1-15.1); White Blood Count 6.5 10^3/uL (4.0-10.0)
[2019-12-28 10:03] LABS: Alanine Aminotransferase 22 U/L (0-33); Albumin Level 4.5 g/dL (3.5-5.2); Alkaline Phosphatase 72 IU/L (35-105); Anion Gap 17.7 (5-19); Aspartate Amino Transferase 20 U/L (0-32); Blood Urea Nitrogen 23 mg/dL (6-20); Calcium 9.9 mg/dL (8.5-10.5); Carbon Dioxide 27 mmol/L (22-29); Chloride 100 mmol/L (98-107); Globulin 3.3 g/dL (1.3-4.6); Glomerular Filtration Rate 105.4 mL/min (90-130); Glucose 109 mg/dL (65-115); Osmolality Calculated 289 mOsm/kg (285-295); Potassium 3.7 mmol/L (3.5-5.1); Sodium 141 mmol/L (136-145); Total Bilirubin 0.2 mg/dL (0.15-1.2); Total Protein 7.8 g/dL (6.6-8.7)
--- NOTE | 2019-12-29 14:40 | ONC FU_ITS ---
Dr. Morgan follow up note Patient: Tracy Melton Unit #: [id number]: [id number] Dicatated By: Ame Morgan M.D.Date of Visit:Dec 29, 2019 Onc Med Follow-up/Prog Note History of Present Illness: Mrs. Melton is a 49-year-old female who presented to [facility] with left femur fracture. CT scan of the left femur showed pathological fracture of mid to distal femoral shaft with findings highly worrisome for underlying malignancy/metastatic disease. A bone scan was done on 10/22/2018. It reported abnormal uptake involving mid left femur through femoral condyles. Photopenia defect in the femoral diaphysis at the site of pathological fracture. Consistent with malignancy. No additional abnormal uptake throughout the bony skeleton to suggest the metastatic disease. Subsequently, she underwent open reduction and internal fixation on 10/22/2018. An open biopsy was obtained and it came back negative for malignancy. For further workup, Ms Melton underwent CT scan of chest abdomen pelvis on 10/22/2018. The scans showed large lobulated left mediastinal mass measuring 7.5 x 5.7 x 6 cm. Centered in the left paratracheal and AP window. Suspicious for confluent lymphadenopathy. Partially encasing the left subclavian artery, aorta, left main pulmonary artery and left main stem bronchus; Subcentimeter right upper and lingular pulmonary nodules, indeterminate for metastatic disease; Hepatic hemangioma; No metastatic disease to liver or adrenal glands; No bony lesion seen. MRI head done on 11/19/2018 showed no evidence of metastatic disease Mrs Melton underwent bronchoscopy and mediastinoscopy on 10/29/2018 and a para-aortic mass obtained via mediastinoscopy shows non-small cell lung cancer, squamous cell type. 25 year history of smoking ,quit smoking on 08/21/2018, Mrs Melton was started on combined chemoradiation to The thorax on 11/13/2018 with weekly carboplatin and Taxol. Completed combined chemoradiation on 01/01/2019. She was referred to orthopedic oncology at [facility] for biopsy-proven negative or Inconclusive as it showed scant necrotic neoplasm or but radiologically suspicious left femur pathological fracture. She had had 20 pound weight loss within [address] PET scan done on 12/06/2018 showed hypermetabolic left~mediastinal mass with SUV of 9.2 this is inseparable from mediastinum and demonstrates invasion. Asystole 1.7 x 2.5 cm sub-aortic lymph node with a mild FDG activity. Left femur intramedullary kari is in place with only mild postsurgical inflammatory activity Patient underwent left femur biopsy on 12/08/2018 and As per patient pathology was inconclusive for metastatic disease but clinical impression is still in favor of metastatic disease and she has completed radiation therapy to her femur Molecular profiling on tumor came back negative Mrs Melton on chemotherapy with carboplatin/Taxol/Keytruda ???4 on 02/25/2019, after 4 cycles, with a plan of repeating CT PET scan. If it showed good response then consider maintenance therapy with Keytruda alone Because of related side effects, with second cycle and on, her Taxol dose was changed to day 1 and day 8 but continue with Keytruda/carboplatin every 3 weeks noted some fullness in her left arm but no pain.For which she underwent left upper extremity venous Doppler study on 03/19/2019 which showed partial DVT seen within subclavian vein near the jugular. All other vessels appear free of thrombosis. Patient was evaluated in emergency room and was started on Eliquis 10 mg by mouth twice a day for 7 days which is completed on 03/26/2019 therafter 5 mg twice a day as a maintenance. And her Port-A-Cath was still functional and needed to continue with chemotherapy and then for maintenance therapy with Keytruda. Because of progressive pancytopenia her consolidation therapy with with carboplatin/Taxol/Keytruda was discontinued after 2 cycles and follow-up CT PET scan done on 05/02/2019 showed the left Mediastinal mass was 0.8 x 2.3 cm with SUV of 2.3 consistent with complete response to therapy. Inflammatory infiltrates in the anterior left upper lobe water FDG negative. The subaortic lymph node is no longer identified. No evidence of distant metastatic disease. Switched to maintenance Keytruda 200 mg every 3 weeks up to 24 months on 05/05/2019. Left lower leg swelling, for which she underwent venous Doppler study on 07/17/2019 which reported no evidence of DVT in left lower extremty Follow-up CT PET scan done on 09/26/2019 showed new left upper lobe infiltrates, most suggestive of infection then recurrence. Probable reactive prevascular lymph node And other concern was radiation recall pneumonitis , so decided to hold immunotherapy and she was referred to pulmonology and she was evaluated on 10/27/2019 and his impression was finding consistent with radiation-induced changes.And new bronchodilator was added Immunotherapy with Keytruda is on hold since 09/15/2019, After reviewing CT scan of chest done on December 04, 2019, Keytruda was restarted on December 08, 2019 Follow-up CT scan of chest done on December 04, 2019 showed left paratracheal and AP window soft tissue mass appears to be slightly larger than previous exam, as mentioned in the impression back in description, it says 4.5 cm mass does not appear to shows any gross deformity or change when compared with previous exam. Done on July 08, 2019. Mediastinum is normal Case was discussed with Dr. De La Cruz radiologist and her impression was pneumonitis seen earlier is better, no significant change compared to previous scan and recommended follow-up CT PET scan in 3 months. Came for follow-up, denies any specific complaint except pain in her left knee for which she has seen Dr. Stephens orthopedic physician who ordered MRI scan of her left knee, as per patient it did not show any abnormality so she was given a cortisone shot which did help her for couple of weeks and otherwise no fever chills no nausea or vomiting no diarrhea or constipation no wheezing, no skin rash, no hemoptysis or hematemesis. Tolerating immunotherapy with Keytruda well otherwise Medications: Abilify 0.5 Tablet (of 5 mg) Tablet Oral daily, Aspirin 1 (81 mg) Tablet Oral daily, HYDROcodone-Acetaminophen 1 Tablet (of 7.5-325 mg) Oral t.i.d. PRN, LORazepam 0.5 - 1 Tablet (of 1 mg) Oral t.i.d. PRN, Wellbutrin XL 1 (300 mg) Tablet SR 24 HR Oral daily, Zoloft 1.5 Tablet (of 100 mg) Oral daily Allergies: Bactrim and Cipro. Review of Systems: Constitutional - Appetite is fair and weight is stable. Energy level is fair, ENMT - No sinus congestion/drainage. No mouth sores. No sore throat or difficulty swallowing, Hematologic/Lymphatic - No abnormal bruising or bleeding, Respiratory - Positive for occasional shortness of breath and cough, Cardiovascular - No angina pain. No palpitations, Gastrointestinal - No nausea, no vomiting. No heartburn or acid reflux. No diarrhea, no constipation. No blood in the stool or black stools, Genitourinary (F) - No urinary symptoms today, Musculoskeletal - Positive for joint pain, Neurologic - Positive for occasional dizziness and Hx of head injury, Psychiatric - Positive for anxiety/depression/insomnia. Vital Signs: Performed on Dec 29, 2019 14:08 Height - 64.00 in Weight - 136.0 lbs (LOW) BSA - 1.66 sq.m BMI - 23.34 Temperature - 97.0 F (LOW) Pulse - 94 /min Respiration - 20 /min BP - 119/69 mm(hg) O2 Sat - 97 % Pain - 7 Performance Status: 1 - No physically strenuous activity, but ambulatory and able to carry out light or sedentary work (e.g. office work, light house work). (ECOG) Physical Examination: ENMT - No mouth sores no thrush, Respiratory - Lungs are clear, Cardiovascular - Regular rate and rhythm of heart, Abdomen - Soft, bowel sounds present, Extremities - No visible edema or swelling in left knee. Lab/Imaging: Test performed on October 29, 2019 11:05 Sodium 142 mmol/L TSH 2.90 uIU/mL Potassium 3.6 mmol/L Chloride 100 mmol/L CO2 26 mmol/L Anion Gap 19.6 BUN 11 mg/dL Creatinine 0.6 mg/dL Cr Clearance (Est) 106.6000 mL/min eGFR 105.4 mL/min Glucose 77 mg/dL Calcium 10.4 mg/dL Protein, Total 7.8 g/dL Albumin 4.3 g/dL Globulin 3.5 g/dL Bilirubin, Total 0.2 mg/dL ALT (SGPT) 18 U/L AST (SGOT) 20 U/L Alkaline Phosphatase 73 IU/L WBC 8.9 10 3/uL RBC 4.05 10 6/uL HGB 12.7 g/dL HCT 38.9 % MCV 96.0 fL MCH 31.4 pg MCHC 32.6 g/dL RDW 12.4 % Platelet Count 284 10 3/cmm MPV 8.9 fL Neutrophils 5.2 10 3/uL Lymphocytes 2.1 10 3/uL Monocytes 1.0 10 3/uL Eosinophils 0.6 10 3/uL Basophils 0.0 10 3/uL Neutrophil % 58.1 % Lymphocyte % 23.2 % Monocyte % 11.6 % Eosinophil % 6.6 % Basophils % 0.2 % Impression: Squamous cell carcinoma involving left paratracheal area for mediastinoscopy done on 10/29/2018 CT scan of chest abdomen pelvis done on 10/22/2018 showed large lobulated left mediastinal mass measuring 7.5 x 5.7 x 6 cm. Centered in the left paratracheal and AP window. Suspicious for confluent adenopathy. Partially encasing the left subclavian artery, aorta, left main pulmonary artery and left main stem bronchus. Subcentimeter right upper and lingular pulmonary nodules, indeterminate for metastatic disease No metastatic disease to the liver or adrenal glands No bone metastases. MRI head done on 11/19/2018 showed no evidence of metastatic disease As per radiation oncology patient still awaiting approval from Medicaid for CT PET scan History of smoking for 25 years, quit smoking on 10/21/2018. Bone scan done on 10/22/2018 showed abnormal uptake involving left mid femur through the femoral condyles. Photopenia defect in the femoral diaphysis at the site of pathological fracture consistent with malignancy. No additional bone metastases seen. CT PET scan done on 12/06/2018 shows hypermetabolic left paraMediastinal mass with SUV of 9.2 and is inseparable from the mediastinum and demonstrates invasion. A cystic 1.7 x 2.5 cm subaortic node demonstrates mild FDG activity. And left femur intramedullary kari is in place, with only mild postsurgical inflammatory activity. History of left femur fracture due to fall, status post open reduction and internal fixation done on 10/22/2018, open biopsy was negative for metastatic disease Now being referred to orthopedic oncology at [facility] for second opinion Left femur biopsy was done on 12/08/2018. Started on combined chemoradiation to the chest wall with weekly carboplatin Taxol on 11/13/2018. Per Ms Melton, radiation therapy to left femur was also added on 11/24/2018.She compared to combined chemoradiation to her chest on 01/01/2019 and also received radiation to her left femur for metastatic disease but biopsy was inconclusive Started on consolidation therapy with Keytruda/Taxol/carboplatin ???3 on 02/26/2019 Consolidation therapy was discontinued after two cycles because of progressive pancytopenia and more severe thrombocytopenia. On 03/26/2019 and follow-up CT PET scan done on 05/02/2019 showed excellent response to therapy and she was switched to maintenance therapy with Keytruda alone 200 mg every 3 weeks up to 24 months as long as tolerating and there is a no evidence of disease progression. She began her first dose of single agent pembrolizumab on 05/21/2019. She is on a 3-week cycle. She is tolerating it well thus far. Plan: Discussed with patient regarding her labs white blood count 6.5 hemoglobin 12.5 hematocrit 38 platelets 241,000 CMP within normal limits TSH 2.70 Clinically, patient is doing well with no signs symptom suggestive of recurrence of disease, tolerating immunotherapy with Keytruda well, will give her next 3 weekly dose today then she will return to clinic in 3 weeks with CBC CMP As far as left knee pain is concerned, now being followed by Dr. Stephens orthopedics and as per patient she had MRI scan of the left knee done about couple of weeks ago and it was unremarkable so she was given cortisone injection to the knee which did help her for couple of weeks but now feels like pain is returning but under control with current pain medication and she is following with Dr. Stephens for further planning. Signed By: Ame Morgan M.D. <<Signature on File>>
== END 2020-01-15 23:59 | disposition home or self-care (01) ==
LOC: ONCMED 06:42
PROVIDERS: Internal Medicine Hematology & Oncology; Visit Provider Nurse Practitioner
DX: Z51.12 Encounter for antineoplastic immunotherapy (principal); C34.82 Malignant neoplasm of overlapping sites of left bronchus and lung; Z79.01 Long term (current) use of anticoagulants; Z79.82 Long term (current) use of aspirin; Z79.891 Long term (current) use of opiate analgesic; Z87.891 Personal history of nicotine dependence; Z92.3 Personal history of irradiation; Z92.21 Personal history of antineoplastic chemotherapy; Z86.718 Personal history of other venous thrombosis and embolism
CPT/HCPCS: 80053; 84443; 85025; 96413; 99214; J7050; J9271

== ENCOUNTER 2020-02-09 05:36 | Outpatient (RCR) | payer MEDICAID, SELFPAY ==
[2020-01-18 15:20] LABS: Basophils % 0.3 %; Eosinophils # 0.3 10^3/uL (0.0-0.8); Eosinophils % 4.4 %; Hematocrit 35.5 % (37.0-47.0); Hemoglobin 11.7 g/dL (11.5-15.3); Lymphocytes # 1.4 10^3/uL (0.8-4.8); Mean Corpuscular Volume 94.2 fL (81-99); Mean Platelet Volume 8.8 fL (7.4-10.4); Monocytes # 0.6 10^3/uL (0.2-0.9); Monocytes % 9.8 %; Neutrophils # 3.88 10^3/uL (1.8-7.7); Neutrophils % 63.3 %; Nucleated Red Blood Cells % 0 %; Platelet Count 211 10^3/cmm (130-400); Red Blood Count 3.77 10^6/uL (4.1-5.3); Red Cell Distribution Width 12.6 % (12.1-15.1); White Blood Count 6.1 10^3/uL (4.0-10.0)
[2020-01-18 19:17] LABS: Alanine Aminotransferase 18 U/L (0-33); Albumin Level 4.5 g/dL (3.5-5.2); Alkaline Phosphatase 63 IU/L (35-105); Anion Gap 14.5 (5-19); Aspartate Amino Transferase 18 U/L (0-32); Blood Urea Nitrogen 15 mg/dL (6-20); Calcium 9.4 mg/dL (8.5-10.5); Carbon Dioxide 26 mmol/L (22-29); Chloride 101 mmol/L (98-107); Globulin 2.6 g/dL (1.3-4.6); Glucose 124 mg/dL (65-115); Osmolality Calculated 284 mOsm/kg (285-295); Potassium 3.5 mmol/L (3.5-5.1); Sodium 138 mmol/L (136-145); Thyroid Stimulating Hormone 1.27 uIU/mL (0.27-4.20); Total Bilirubin 0.3 mg/dL (0.15-1.2); Total Protein 7.1 g/dL (6.6-8.7)
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
[2020-02-08 13:48] LABS: Basophils % 0.3 %; Eosinophils # 0.4 10^3/uL (0.0-0.8); Eosinophils % 6.8 %; Hematocrit 35.4 % (37.0-47.0); Hemoglobin 11.8 g/dL (11.5-15.3); Lymphocytes # 1.2 10^3/uL (0.8-4.8); Lymphocytes % 18.1 %; Mean Corpuscular HGB Conc 33.3 g/dL (30.0-36.0); Mean Corpuscular Hemoglobin 31.9 pg (28.0-34.0); Mean Corpuscular Volume 95.7 fL (81-99); Mean Platelet Volume 8.8 fL (7.4-10.4); Monocytes # 0.6 10^3/uL (0.2-0.9); Monocytes % 9.4 %; Neutrophils # 4.14 10^3/uL (1.8-7.7); Neutrophils % 65.1 %; Nucleated Red Blood Cells % 0 %; Platelet Count 217 10^3/cmm (130-400); Red Cell Distribution Width 12.5 % (12.1-15.1); White Blood Count 6.4 10^3/uL (4.0-10.0)
[2020-02-08 14:13] LABS: Alanine Aminotransferase 19 U/L (0-33); Albumin Level 4.2 g/dL (3.5-5.2); Alkaline Phosphatase 68 IU/L (35-105); Aspartate Amino Transferase 20 U/L (0-32); Blood Urea Nitrogen 16 mg/dL (6-20); Calcium 8.6 mg/dL (8.5-10.5); Carbon Dioxide 28 mmol/L (22-29); Chloride 103 mmol/L (98-107); Globulin 3.1 g/dL (1.3-4.6); Glucose 138 mg/dL (65-115); Osmolality Calculated 287 mOsm/kg (285-295); Sodium 139 mmol/L (136-145); Thyroid Stimulating Hormone 1.14 uIU/mL (0.27-4.20); Total Bilirubin 0.2 mg/dL (0.15-1.2); Total Protein 7.3 g/dL (6.6-8.7)
--- NOTE | 2020-02-09 13:58 | ONC FU_ITS ---
Dr. Morgan follow up note Patient: Tracy Melton Unit #: [id number]: 1970 Dicatated By: Ame Morgan M.D.Date of Visit:Feb 09, 2020 Onc Med Follow-up/Prog Note History of Present Illness: Mrs. Melton is a 50-year-old female who presented to [facility] with left femur fracture. CT scan of the left femur showed pathological fracture of mid to distal femoral shaft with findings highly worrisome for underlying malignancy/metastatic disease. A bone scan was done on 10/22/2018. It reported abnormal uptake involving mid left femur through femoral condyles. Photopenia defect in the femoral diaphysis at the site of pathological fracture. Consistent with malignancy. No additional abnormal uptake throughout the bony skeleton to suggest the metastatic disease. Subsequently, she underwent open reduction and internal fixation on 10/22/2018. An open biopsy was obtained and it came back negative for malignancy. For further workup, Ms Melton underwent CT scan of chest abdomen pelvis on 10/22/2018. The scans showed large lobulated left mediastinal mass measuring 7.5 x 5.7 x 6 cm. Centered in the left paratracheal and AP window. Suspicious for confluent lymphadenopathy. Partially encasing the left subclavian artery, aorta, left main pulmonary artery and left main stem bronchus; Subcentimeter right upper and lingular pulmonary nodules, indeterminate for metastatic disease; Hepatic hemangioma; No metastatic disease to liver or adrenal glands; No bony lesion seen. MRI head done on 11/19/2018 showed no evidence of metastatic disease Mrs Melton underwent bronchoscopy and mediastinoscopy on 10/29/2018 and a para-aortic mass obtained via mediastinoscopy shows non-small cell lung cancer, squamous cell type. 25 year history of smoking ,quit smoking on 08/21/2018, Mrs Melton was started on combined chemoradiation to The thorax on 11/13/2018 with weekly carboplatin and Taxol. Completed combined chemoradiation on 01/01/2019. She was referred to orthopedic oncology at [facility] for biopsy-proven negative or Inconclusive as it showed scant necrotic neoplasm or but radiologically suspicious left femur pathological fracture. She had had 20 pound weight loss within [address] PET scan done on 12/06/2018 showed hypermetabolic left~mediastinal mass with SUV of 9.2 this is inseparable from mediastinum and demonstrates invasion. Asystole 1.7 x 2.5 cm sub-aortic lymph node with a mild FDG activity. Left femur intramedullary kari is in place with only mild postsurgical inflammatory activity Patient underwent left femur biopsy on 12/08/2018 and As per patient pathology was inconclusive for metastatic disease but clinical impression is still in favor of metastatic disease and she has completed radiation therapy to her femur Molecular profiling on tumor came back negative Mrs Melton on chemotherapy with carboplatin/Taxol/Keytruda ???4 on 02/25/2019, after 4 cycles, with a plan of repeating CT PET scan. If it showed good response then consider maintenance therapy with Keytruda alone Because of related side effects, with second cycle and on, her Taxol dose was changed to day 1 and day 8 but continue with Keytruda/carboplatin every 3 weeks noted some fullness in her left arm but no pain.For which she underwent left upper extremity venous Doppler study on 03/19/2019 which showed partial DVT seen within subclavian vein near the jugular. All other vessels appear free of thrombosis. Patient was evaluated in emergency room and was started on Eliquis 10 mg by mouth twice a day for 7 days which is completed on 03/26/2019 therafter 5 mg twice a day as a maintenance. And her Port-A-Cath was still functional and needed to continue with chemotherapy and then for maintenance therapy with Keytruda. Because of progressive pancytopenia her consolidation therapy with with carboplatin/Taxol/Keytruda was discontinued after 2 cycles and follow-up CT PET scan done on 05/02/2019 showed the left Mediastinal mass was 0.8 x 2.3 cm with SUV of 2.3 consistent with complete response to therapy. Inflammatory infiltrates in the anterior left upper lobe water FDG negative. The subaortic lymph node is no longer identified. No evidence of distant metastatic disease. Switched to maintenance Keytruda 200 mg every 3 weeks up to 24 months on 05/05/2019. Left lower leg swelling, for which she underwent venous Doppler study on 07/17/2019 which reported no evidence of DVT in left lower extremty Follow-up CT PET scan done on 09/26/2019 showed new left upper lobe infiltrates, most suggestive of infection then recurrence. Probable reactive prevascular lymph node And other concern was radiation recall pneumonitis , so decided to hold immunotherapy and she was referred to pulmonology and she was evaluated on 10/27/2019 and his impression was finding consistent with radiation-induced changes. A new bronchodilator was added to her current medication regimen. Immunotherapy with Keytruda had been on hold since 09/15/2019, after reviewing CT scan of chest done on December 04, 2019, Keytruda was restarted on December 08, 2019 The follow-up CT scan of chest done on December 04, 2019 showed left paratracheal and AP window soft tissue mass appears to be slightly larger than previous exam, as mentioned in the impression back in description, it says 4.5 cm mass does not appear to shows any gross deformity or change when compared with previous exam. Done on July 08, 2019. Mediastinum is normal Case was discussed with Dr. De La Cruz radiologist and her impression was pneumonitis seen earlier is better, no significant change compared to previous scan and recommended follow-up CT PET scan in 3 months. Came for follow-up, denies any specific complaints except lower back pain with radiating to leg, which is under control with current pain medication, patient was scheduled for MRI scan of spine and hip but patient said she mixed up and could not get it done now requesting reschedule. No urine or stool incontinence, no lower extremity weakness, no fever or chills, no shortness of breath, no skin rash, no diarrhea, no jaundice, no headaches. Tolerating maintenance therapy with Keytruda well otherwise Medications: Abilify 0.5 Tablet (of 5 mg) Tablet Oral daily, Aspirin 1 (81 mg) Tablet Oral daily, HYDROcodone-Acetaminophen 1 Tablet (of 7.5-325 mg) Oral t.i.d. PRN, LORazepam 0.5 - 1 Tablet (of 1 mg) Oral t.i.d. PRN, Stiolto Respimat Aerosol, solution Inhalation, Wellbutrin XL 1 (300 mg) Tablet SR 24 HR Oral daily, Zoloft 1.5 Tablet (of 100 mg) Oral daily Allergies: Bactrim and Cipro. Review of Systems: Constitutional - Appetite is fair and weight is stable. Energy level is fair, ENMT - No sinus congestion/drainage. No mouth sores. No sore throat or difficulty swallowing, Hematologic/Lymphatic - No abnormal bruising or bleeding, Respiratory - Positive for occasional shortness of breath and cough, Cardiovascular - No angina pain. No palpitations, Gastrointestinal - No nausea, no vomiting. No heartburn or acid reflux. No diarrhea, no constipation. No blood in the stool or black stools, Genitourinary (F) - No urinary symptoms today, Musculoskeletal - Positive for joint pain, Neurologic - Positive for occasional dizziness and Hx of head injury, Psychiatric - Positive for anxiety/depression/insomnia. Vital Signs: Performed on Feb 09, 2020 13:32 Height - 64.00 in Weight - 142.0 lbs (HIGH) BSA - 1.69 sq.m BMI - 24.37 Temperature - 97.6 F (LOW) Pulse - 98 /min Respiration - 18 /min BP - 143/68 mm(hg) (HIGH) O2 Sat - 99 % Pain - 6 Performance Status: 1 - No physically strenuous activity, but ambulatory and able to carry out light or sedentary work (e.g. office work, light house work). (ECOG) Physical Examination: ENMT - No mouth sores, no thrush, no jaundice, Respiratory - Lungs are clear, Cardiovascular - Regular rate and rhythm of heart, Abdomen - Soft, bowel sounds present, Extremities - No visible edema. Lab/Imaging: Test performed on Jan 18, 2020 15:00 Sodium 138 mmol/L TSH 1.27 uIU/mL Potassium 3.5 mmol/L Chloride 101 mmol/L CO2 26 mmol/L Anion Gap 14.5 BUN 15 mg/dL Creatinine 0.6 mg/dL Cr Clearance (Est) 106.8100 mL/min eGFR 105.0 mL/min Glucose 124 mg/dL Calcium 9.4 mg/dL Protein, Total 7.1 g/dL Albumin 4.5 g/dL Globulin 2.6 g/dL Bilirubin, Total 0.3 mg/dL ALT (SGPT) 18 U/L AST (SGOT) 18 U/L Alkaline Phosphatase 63 IU/L WBC 6.1 10 3/uL RBC 3.77 10 6/uL HGB 11.7 g/dL HCT 35.5 % MCV 94.2 fL MCH 31.0 pg MCHC 33.0 g/dL RDW 12.6 % Platelet Count 211 10 3/cmm MPV 8.8 fL Neutrophils 3.88 10 3/uL Lymphocytes 1.4 10 3/uL Monocytes 0.6 10 3/uL Eosinophils 0.3 10 3/uL Basophils 0.0 10 3/uL Neutrophil % 63.3 % Lymphocyte % 22.0 % Monocyte % 9.8 % Eosinophil % 4.4 % Basophils % 0.3 % NRBC % 0 % Impression: Squamous cell carcinoma involving left paratracheal area for mediastinoscopy done on 10/29/2018 CT scan of chest abdomen pelvis done on 10/22/2018 showed large lobulated left mediastinal mass measuring 7.5 x 5.7 x 6 cm. Centered in the left paratracheal and AP window. Suspicious for confluent adenopathy. Partially encasing the left subclavian artery, aorta, left main pulmonary artery and left main stem bronchus. Subcentimeter right upper and lingular pulmonary nodules, indeterminate for metastatic disease No metastatic disease to the liver or adrenal glands No bone metastases. MRI head done on 11/19/2018 showed no evidence of metastatic disease As per radiation oncology patient still awaiting approval from Medicaid for CT PET scan History of smoking for 25 years, quit smoking on 10/21/2018. Bone scan done on 10/22/2018 showed abnormal uptake involving left mid femur through the femoral condyles. Photopenia defect in the femoral diaphysis at the site of pathological fracture consistent with malignancy. No additional bone metastases seen. CT PET scan done on 12/06/2018 shows hypermetabolic left paraMediastinal mass with SUV of 9.2 and is inseparable from the mediastinum and demonstrates invasion. A cystic 1.7 x 2.5 cm subaortic node demonstrates mild FDG activity. And left femur intramedullary kari is in place, with only mild postsurgical inflammatory activity. History of left femur fracture due to fall, status post open reduction and internal fixation done on 10/22/2018, open biopsy was negative for metastatic disease Now being referred to orthopedic oncology at [facility] for second opinion Left femur biopsy was done on 12/08/2018. Started on combined chemoradiation to the chest wall with weekly carboplatin Taxol on 11/13/2018. Per Ms Geronimo, radiation therapy to left femur was also added on 11/24/2018.She compared to combined chemoradiation to her chest on 01/01/2019 and also received radiation to her left femur for metastatic disease but biopsy was inconclusive Started on consolidation therapy with Keytruda/Taxol/carboplatin ???3 on 02/26/2019 Consolidation therapy was discontinued after two cycles because of progressive pancytopenia and more severe thrombocytopenia. On 03/26/2019 and follow-up CT PET scan done on 05/02/2019 showed excellent response to therapy and she was switched to maintenance therapy with Keytruda alone 200 mg every 3 weeks up to 24 months as long as tolerating and there is a no evidence of disease progression. She began her first dose of single agent pembrolizumab on 05/21/2019. She is on a 3-week cycle. She is tolerating it well thus far. Plan: Discussed with patient regarding her labs white blood count 6.4 hemoglobin 11.8 hematocrit 35.4 platelets 217,000 CMP within normal limits TSH 1.14 Clinically, patient is doing well with no new signs symptom suggestive of disease progression, tolerating maintenance therapy with Keytruda well we will proceed with next 3 weekly dose today and then she will return to clinic in 3 weeks with CBC CMP and MRI scan of spine/pelvis. As well as lower back pain/radiating to the leg is concerned etiology unclear could be multifactorial including disease progression, patient was scheduled for MRI scan of spine and pelvis, but patient did not go for it now requesting reschedule. Signed By: Ame Morgan M.D. <<Signature on File>>
== END 2020-02-15 23:59 | disposition home or self-care (01) ==
LOC: ONCMED 05:36
PROVIDERS: Nurse Practitioner; Visit Provider Internal Medicine Hematology & Oncology
DX: Z51.12 Encounter for antineoplastic immunotherapy (principal); C34.82 Malignant neoplasm of overlapping sites of left bronchus and lung; M84.452A Pathological fracture, left femur, initial encounter for fracture; F32.9 Major depressive disorder, single episode, unspecified; G62.9 Polyneuropathy, unspecified; F43.10 Post-traumatic stress disorder, unspecified; Z86.19 Personal history of other infectious and parasitic diseases
CPT/HCPCS: 36591; 80053; 84443; 85025; 96413; 99214; J7050; J9271

== ENCOUNTER 2020-03-07 05:30 | Outpatient (RCR) | payer MEDICAID, SELFPAY ==
--- NOTE | 2020-02-25 12:59 | MR_ITS ---
WS: [id number] MRI LUMBAR SPINE WITH CONTRAST TECHNIQUE: Sagittal T1, T2 and STIR imaging. Axial T1 and T2 imaging. Post gadolinium imaging was obt ained. CLINICAL INFORMATION: PERSISTANT LEFT LEG SHARP SHOOTING PAIN COMPARISON: None. FINDINGS: Normal lumbar alignment. No acute compression. No high-grade central canal stenosis. No abnormal gado linium enhancement. No evidence of enhancing metastatic disease. L1-L2: Normal. L2-L3: Mild annular bulging with slight narrowing of the left subarticular recess. Spinal canal and f oramen are patent. Mild facet arthropathy. L3-L4: Mild annular bulging with slight effacement of the ventral thecal sac. Narrowing of the right subarticular recess. Encroachment traversing right L4 nerve root. Small right foraminal protrusion wi th mild right and no significant left foraminal narrowing. Mild facet arthropathy. L4-L5: Mild annular bulging with narrowing of the left subarticular recess. Mild left and no signific ant right foraminal narrowing. Mild facet arthropathy. L5-S1: No significant disc bulging. Spinal canal and foramen are patent. Mild facet arthropathy. Prior postoperative changes anterior cervical fusion C5-C6. Visualized pelvic bony structures: Normal. Paravertebral soft tissues: Normal. MR/MR lumbar spine wo/w con [id number] IMPRESSION: 1. Mild lumbar curve. No acute compression. No evidence of enhancing bony meta static disease. 2. Annular bulging L3-L4 and L4-L5 with narrowing of the subarticular recess w orse at right L3-4 and left L4-5. 3. Slight narrowing of the left L2-3 subarticular recess. 4. Small right foraminal protrusion L3-4 with mild right foraminal narrowing. 5. Mild left L4-5 foraminal narrowing with a small left foraminal protrusion. 6. Mild facet arthropathy L3-L4 L4-L5.
[2020-02-29 14:02] LABS: Basophils % 0.3 %; Eosinophils # 0.5 10^3/uL (0.0-0.8); Eosinophils % 7.8 %; Hematocrit 35.4 % (37.0-47.0); Hemoglobin 11.6 g/dL (11.5-15.3); Lymphocytes # 1.2 10^3/uL (0.8-4.8); Mean Corpuscular HGB Conc 32.8 g/dL (30.0-36.0); Mean Corpuscular Hemoglobin 31.3 pg (28.0-34.0); Mean Corpuscular Volume 95.4 fL (81-99); Monocytes # 0.7 10^3/uL (0.2-0.9); Monocytes % 10.9 %; Neutrophils # 3.79 10^3/uL (1.8-7.7); Neutrophils % 61.7 %; Nucleated Red Blood Cells % 0 %; Platelet Count 220 10^3/cmm (130-400); Red Blood Count 3.71 10^6/uL (4.1-5.3); Red Cell Distribution Width 12.8 % (12.1-15.1); White Blood Count 6.2 10^3/uL (4.0-10.0)
[2020-02-29 14:19] LABS: Alanine Aminotransferase 21 U/L (0-33); Albumin Level 4.2 g/dL (3.5-5.2); Alkaline Phosphatase 64 IU/L (35-105); Anion Gap 14.4 (5-19); Aspartate Amino Transferase 26 U/L (0-32); Blood Urea Nitrogen 16 mg/dL (6-20); Calcium 9.1 mg/dL (8.5-10.5); Carbon Dioxide 27 mmol/L (22-29); Chloride 100 mmol/L (98-107); Globulin 2.8 g/dL (1.3-4.6); Glucose 107 mg/dL (65-115); Osmolality Calculated 281 mOsm/kg (285-295); Potassium 4.4 mmol/L (3.5-5.1); Sodium 137 mmol/L (136-145); Total Bilirubin 0.2 mg/dL (0.15-1.2)
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
== END 2020-03-16 23:59 | disposition home or self-care (01) ==
LOC: ONCMED 05:30
PROVIDERS: Internal Medicine Hematology & Oncology; Visit Provider Nurse Practitioner
DX: Z51.12 Encounter for antineoplastic immunotherapy (principal); C34.82 Malignant neoplasm of overlapping sites of left bronchus and lung; M84.452A Pathological fracture, left femur, initial encounter for fracture; R91.1 Solitary pulmonary nodule; Z87.891 Personal history of nicotine dependence
CPT/HCPCS: 36591; 72158; 80053; 84443; 85025; 96413; 99214; A9579; J7050; J9271

== ENCOUNTER → 2020-03-21 08:20 | Outpatient (BNVA) | payer MEDICAID, SELFPAY | PROVIDERS: Visit Provider Nurse Practitioner | DX: F43.12 Post-traumatic stress disorder, chronic (principal); F20.9 Schizophrenia, unspecified | CPT/HCPCS: 99214 ==

== ENCOUNTER 2020-04-11 05:31 | Outpatient (RCR) | payer MEDICAID, SELFPAY ==
[2020-03-25 08:39] LABS: Basophils % 0.4 %; Eosinophils # 0.3 10^3/uL (0.0-0.8); Hematocrit 34.4 % (37.0-47.0); Hemoglobin 11.4 g/dL (11.5-15.3); Lymphocytes # 1.1 10^3/uL (0.8-4.8); Lymphocytes % 21.2 %; Mean Corpuscular HGB Conc 33.1 g/dL (30.0-36.0); Mean Corpuscular Hemoglobin 31.6 pg (28.0-34.0); Mean Corpuscular Volume 95.3 fL (81-99); Mean Platelet Volume 8.8 fL (7.4-10.4); Monocytes # 0.5 10^3/uL (0.2-0.9); Monocytes % 10.1 %; Neutrophils # 3.17 10^3/uL (1.8-7.7); Neutrophils % 61.9 %; Nucleated Red Blood Cells % 0 %; Platelet Count 184 10^3/cmm (130-400); Red Blood Count 3.61 10^6/uL (4.1-5.3); Red Cell Distribution Width 12.3 % (12.1-15.1); White Blood Count 5.1 10^3/uL (4.0-10.0)
[2020-03-25 09:21] LABS: Alanine Aminotransferase 15 U/L (0-33); Alkaline Phosphatase 69 IU/L (35-105); Anion Gap 11.6 (5-19); Aspartate Amino Transferase 17 U/L (0-32); Blood Urea Nitrogen 16 mg/dL (6-20); Calcium 9.3 mg/dL (8.5-10.5); Carbon Dioxide 27 mmol/L (22-29); Chloride 102 mmol/L (98-107); Globulin 2.7 g/dL (1.3-4.6); Glucose 107 mg/dL (65-115); Osmolality Calculated 286 mOsm/kg (285-295); Potassium 3.6 mmol/L (3.5-5.1); Sodium 137 mmol/L (136-145); Thyroid Stimulating Hormone 1.67 uIU/mL (0.27-4.20); Total Bilirubin 0.2 mg/dL (0.15-1.2); Total Protein 6.7 g/dL (6.6-8.7)
--- NOTE | 2020-03-28 16:30 | ONC FU_ITS ---
Dr. Morgan follow up note Patient: Tracy Melton Unit #: [id number]: [id number] Dicatated By: Ame Morgan M.D.Date of Visit:Mar 28, 2020 Onc Med Follow-up/Prog Note History of Present Illness: Mrs. Melton is a 50-year-old female who presented to [facility] with left femur fracture. CT scan of the left femur showed pathological fracture of mid to distal femoral shaft with findings highly worrisome for underlying malignancy/metastatic disease. A bone scan was done on 10/22/2018. It reported abnormal uptake involving mid left femur through femoral condyles. Photopenia defect in the femoral diaphysis at the site of pathological fracture. Consistent with malignancy. No additional abnormal uptake throughout the bony skeleton to suggest the metastatic disease. Subsequently, she underwent open reduction and internal fixation on 10/22/2018. An open biopsy was obtained and it came back negative for malignancy. For further workup, Ms Melton underwent CT scan of chest abdomen pelvis on 10/22/2018. The scans showed large lobulated left mediastinal mass measuring 7.5 x 5.7 x 6 cm. Centered in the left paratracheal and AP window. Suspicious for confluent lymphadenopathy. Partially encasing the left subclavian artery, aorta, left main pulmonary artery and left main stem bronchus; Subcentimeter right upper and lingular pulmonary nodules, indeterminate for metastatic disease; Hepatic hemangioma; No metastatic disease to liver or adrenal glands; No bony lesion seen. MRI head done on 11/19/2018 showed no evidence of metastatic disease Mrs Melton underwent bronchoscopy and mediastinoscopy on 10/29/2018 and a para-aortic mass obtained via mediastinoscopy shows non-small cell lung cancer, squamous cell type. 25 year history of smoking ,quit smoking on 08/21/2018, Mrs Melton was started on combined chemoradiation to The thorax on 11/13/2018 with weekly carboplatin and Taxol. Completed combined chemoradiation on 01/01/2019. She was referred to orthopedic oncology at [facility] for biopsy-proven negative or Inconclusive as it showed scant necrotic neoplasm or but radiologically suspicious left femur pathological fracture. She had had 20 pound weight loss within [address] PET scan done on 12/06/2018 showed hypermetabolic left mediastinal mass with SUV of 9.2 this is inseparable from mediastinum and demonstrates invasion. An 1.7 x 2.5 cm sub-aortic lymph node with a mild FDG activity. Left femur intramedullary kari is in place with only mild postsurgical inflammatory activity Patient underwent left femur biopsy on 12/08/2018 and As per patient pathology was inconclusive for metastatic disease but clinical impression is still in favor of metastatic disease and she has completed radiation therapy to her femur Molecular profiling on tumor came back negative Mrs Melton on chemotherapy with carboplatin/Taxol/Keytruda ???4 on 02/25/2019, after 4 cycles, with a plan of repeating CT PET scan. If it showed good response then consider maintenance therapy with Keytruda alone Because of related side effects, with second cycle and on, her Taxol dose was changed to day 1 and day 8 but continue with Keytruda/carboplatin every 3 weeks noted some fullness in her left arm but no pain. For which she underwent left upper extremity venous Doppler study on 03/19/2019 which showed partial DVT seen within subclavian vein near the jugular. All other vessels appear free of thrombosis. Patient was evaluated in emergency room and was started on Eliquis 10 mg by mouth twice a day for 7 days which is completed on 03/26/2019 therafter 5 mg twice a day as a maintenance. And her Port-A-Cath was still functional and needed to continue with chemotherapy and then for maintenance therapy with Keytruda. Because of progressive pancytopenia her consolidation therapy with with carboplatin/Taxol/Keytruda was discontinued after 2 cycles and follow-up CT PET scan done on 05/02/2019 showed the left Mediastinal mass was 0.8 x 2.3 cm with SUV of 2.3 consistent with complete response to therapy. Inflammatory infiltrates in the anterior left upper lobe water FDG negative. The subaortic lymph node is no longer identified. No evidence of distant metastatic disease. Switched to maintenance Keytruda 200 mg every 3 weeks up to 24 months on 05/05/2019. Left lower leg swelling, for which she underwent venous Doppler study on 07/17/2019 which reported no evidence of DVT in left lower extremty Follow-up CT PET scan done on 09/26/2019 showed new left upper lobe infiltrates, most suggestive of infection then recurrence. Probable reactive prevascular lymph node And other concern was radiation recall pneumonitis , so decided to hold immunotherapy and she was referred to pulmonology and she was evaluated on 10/27/2019 and his impression was finding consistent with radiation-induced changes. A new bronchodilator was added to her current medication regimen. Immunotherapy with Keytruda had been on hold since 09/15/2019, after reviewing CT scan of chest done on December 04, 2019, Keytruda was restarted on December 08, 2019 The follow-up CT scan of chest done on December 04, 2019 showed left paratracheal and AP window soft tissue mass appears to be slightly larger than previous exam, as mentioned in the impression back in description, it says 4.5 cm mass does not appear to shows any gross deformity or change when compared with previous exam. Done on July 08, 2019. Mediastinum is normal Case was discussed with Dr. De La Cruz radiologist and her impression was pneumonitis seen earlier is better, no significant change compared to previous scan and recommended follow-up CT PET scan in 3 months. She is tolerating maintenance therapy with Keytruda well otherwise. Came for follow-up, complaining of skin rash involving back of her shoulders and upper back and arms, itching, denies changing any shampoo or soap, denies any taking new medication as per patient she tried steroids x2 without much help. No wheezing no diarrhea no melena or hematochezia, no jaundice. As far left leg pain is concerned patient has seen neurosurgery who recommended her physical therapy as with surgery chances of her improvement is 50-50, patient up upper for physical therapy. Medications: Abilify 0.5 Tablet (of 5 mg) Tablet Oral daily, Aspirin 1 (81 mg) Tablet Oral daily, HYDROcodone-Acetaminophen 1 Tablet (of 7.5-325 mg) Oral t.i.d. PRN, LORazepam 0.5 - 1 Tablet (of 1 mg) Oral t.i.d. PRN, Stiolto Respimat Aerosol, solution Inhalation, Wellbutrin XL 1 (300 mg) Tablet SR 24 HR Oral daily, Zoloft 1.5 Tablet (of 100 mg) Oral daily Allergies: Bactrim and Cipro. Review of Systems: Review of Systems is not available for this patient. Vital Signs: Performed on Mar 28, 2020 12:36 Height - 64.00 in Weight - 149.8 lbs (HIGH) BSA - 1.73 sq.m BMI - 25.71 Temperature - 98.4 F Pulse - 97 /min Respiration - 16 /min BP - 118/65 mm(hg) O2 Sat - 97 % Pain - 7 Performance Status: 1 - No physically strenuous activity, but ambulatory and able to carry out light or sedentary work (e.g. office work, light house work). (ECOG) Physical Examination: ENMT - No mouth sores, no thrush, no jaundice, Respiratory - Lungs are clear to auscultation, Cardiovascular - Regular rate and rhythm of heart, Abdomen - Soft, bowel sounds, Extremities - No visible edema. , Maculopapular rash involving back of her shoulders and upper back and arms with scratching vee no discharge or oozing noted Lab/Imaging: Test performed on Feb 29, 2020 13:35 Sodium 137 mmol/L Potassium 4.4 mmol/L Chloride 100 mmol/L CO2 27 mmol/L Anion Gap 14.4 BUN 16 mg/dL Creatinine 0.6 mg/dL Cr Clearance (Est) 111.5300 mL/min eGFR 105.0 mL/min Glucose 107 mg/dL Calcium 9.1 mg/dL Protein, Total 7.0 g/dL Albumin 4.2 g/dL Globulin 2.8 g/dL Bilirubin, Total 0.2 mg/dL ALT (SGPT) 21 U/L AST (SGOT) 26 U/L Alkaline Phosphatase 64 IU/L Test performed on Jan 18, 2020 15:00 TSH 1.27 uIU/mL WBC 6.1 10 3/uL RBC 3.77 10 6/uL HGB 11.7 g/dL HCT 35.5 % MCV 94.2 fL MCH 31.0 pg MCHC 33.0 g/dL RDW 12.6 % Platelet Count 211 10 3/cmm MPV 8.8 fL Neutrophils 3.88 10 3/uL Lymphocytes 1.4 10 3/uL Monocytes 0.6 10 3/uL Eosinophils 0.3 10 3/uL Basophils 0.0 10 3/uL Neutrophil % 63.3 % Lymphocyte % 22.0 % Monocyte % 9.8 % Eosinophil % 4.4 % Basophils % 0.3 % NRBC % 0 % Impression: Squamous cell carcinoma involving left paratracheal area for mediastinoscopy done on 10/29/2018 CT scan of chest abdomen pelvis done on 10/22/2018 showed large lobulated left mediastinal mass measuring 7.5 x 5.7 x 6 cm. Centered in the left paratracheal and AP window. Suspicious for confluent adenopathy. Partially encasing the left subclavian artery, aorta, left main pulmonary artery and left main stem bronchus. Subcentimeter right upper and lingular pulmonary nodules, indeterminate for metastatic disease No metastatic disease to the liver or adrenal glands No bone metastases. MRI head done on 11/19/2018 showed no evidence of metastatic disease As per radiation oncology patient still awaiting approval from Medicaid for CT PET scan History of smoking for 25 years, quit smoking on 10/21/2018. Bone scan done on 10/22/2018 showed abnormal uptake involving left mid femur through the femoral condyles. Photopenia defect in the femoral diaphysis at the site of pathological fracture consistent with malignancy. No additional bone metastases seen. CT PET scan done on 12/06/2018 shows hypermetabolic left paraMediastinal mass with SUV of 9.2 and is inseparable from the mediastinum and demonstrates invasion. A cystic 1.7 x 2.5 cm subaortic node demonstrates mild FDG activity. And left femur intramedullary kari is in place, with only mild postsurgical inflammatory activity. History of left femur fracture due to fall, status post open reduction and internal fixation done on 10/22/2018, open biopsy was negative for metastatic disease Now being referred to orthopedic oncology at [facility] for second opinion Left femur biopsy was done on 12/08/2018. Started on combined chemoradiation to the chest wall with weekly carboplatin Taxol on 11/13/2018. Per Ms Melton, radiation therapy to left femur was also added on 11/24/2018.She compared to combined chemoradiation to her chest on 01/01/2019 and also received radiation to her left femur for metastatic disease but biopsy was inconclusive Started on consolidation therapy with Keytruda/Taxol/carboplatin ???3 on 02/26/2019 Consolidation therapy was discontinued after two cycles because of progressive pancytopenia and more severe thrombocytopenia. On 03/26/2019 and follow-up CT PET scan done on 05/02/2019 showed excellent response to therapy and she was switched to maintenance therapy with Keytruda alone 200 mg every 3 weeks up to 24 months as long as tolerating and there is a no evidence of disease progression. She began her first dose of single agent pembrolizumab on 05/21/2019. She is on a 3-week cycle. She is tolerating it well thus far. Plan: Discussed with patient regarding her labs white blood count 5.1 hemoglobin 11.4 hematocrit 34.4 platelets 184,000 CMP within normal limits Clinically, patient is doing reasonably well denies any new signs symptoms except skin rash with itching involving back of her shoulders and upper back as well as arms, patient did try steroids x2 with little improvement. Etiology of skin rash could be drug allergies or could be due to immunotherapy, will hold her immunotherapy today and then return to clinic in 2 weeks with CBC CMP and will evaluate her skin rash if there is no improvement will consider consider referring her to dermatology for evaluation. Patient was advised in case there is a worsening of skin rash or any other new symptoms like jaundice, wheezing or melena or hematochezia she need to go to hospital immediately. In the meantime continue supportive care with antihistaminic. Signed By: Ame Morgan M.D. <<Signature on File>>
[2020-04-08 11:42] LABS: Basophils % 0.2 %; Eosinophils # 0.4 10^3/uL (0.0-0.8); Eosinophils % 7.5 %; Hematocrit 34.5 % (37.0-47.0); Hemoglobin 11.2 g/dL (11.5-15.3); Lymphocytes # 1.1 10^3/uL (0.8-4.8); Lymphocytes % 19.6 %; Mean Corpuscular HGB Conc 32.5 g/dL (30.0-36.0); Mean Corpuscular Hemoglobin 31.1 pg (28.0-34.0); Mean Corpuscular Volume 95.8 fL (81-99); Mean Platelet Volume 8.8 fL (7.4-10.4); Monocytes # 0.6 10^3/uL (0.2-0.9); Monocytes % 11.5 %; Neutrophils # 3.33 10^3/uL (1.8-7.7); Nucleated Red Blood Cells % 0 %; Platelet Count 220 10^3/cmm (130-400); Red Cell Distribution Width 12.5 % (12.1-15.1); White Blood Count 5.5 10^3/uL (4.0-10.0)
[2020-04-08 12:11] LABS: Alanine Aminotransferase 16 U/L (0-33); Albumin Level 4.1 g/dL (3.5-5.2); Alkaline Phosphatase 72 IU/L (35-105); Anion Gap 14.9 (5-19); Aspartate Amino Transferase 18 U/L (0-32); Blood Urea Nitrogen 18 mg/dL (6-20); Calcium 9.3 mg/dL (8.5-10.5); Carbon Dioxide 25 mmol/L (22-29); Chloride 103 mmol/L (98-107); Globulin 2.8 g/dL (1.3-4.6); Glomerular Filtration Rate 87.9 mL/min (90-130); Glucose 107 mg/dL (65-115); Osmolality Calculated 290 mOsm/kg (285-295); Potassium 3.9 mmol/L (3.5-5.1); Sodium 139 mmol/L (136-145); Total Bilirubin 0.2 mg/dL (0.15-1.2); Total Protein 6.9 g/dL (6.6-8.7)
--- NOTE | 2020-04-11 14:26 | ONC FU_ITS ---
Dr. Morgan follow up note Patient: Tracy Melton Unit #: [id number]: [id number] Dicatated By: Ame Morgan M.D.Date of Visit:Apr 11, 2020 Onc Med Follow-up/Prog Note History of Present Illness: Mrs. Melton is a 50-year-old female who presented to [facility] [place] [facility] with left femur fracture. CT scan of the left femur showed pathological fracture of mid to distal femoral shaft with findings highly worrisome for underlying malignancy/metastatic disease. A bone scan was done on 10/22/2018. It reported abnormal uptake involving mid left femur through femoral condyles. Photopenia defect in the femoral diaphysis at the site of pathological fracture. Consistent with malignancy. No additional abnormal uptake throughout the bony skeleton to suggest the metastatic disease. Subsequently, she underwent open reduction and internal fixation on 10/22/2018. An open biopsy was obtained and it came back negative for malignancy. For further workup, Ms Melton underwent CT scan of chest abdomen pelvis on 10/22/2018. The scans showed large lobulated left mediastinal mass measuring 7.5 x 5.7 x 6 cm. Centered in the left paratracheal and AP window. Suspicious for confluent lymphadenopathy. Partially encasing the left subclavian artery, aorta, left main pulmonary artery and left main stem bronchus; Subcentimeter right upper and lingular pulmonary nodules, indeterminate for metastatic disease; Hepatic hemangioma; No metastatic disease to liver or adrenal glands; No bony lesion seen. MRI head done on 11/19/2018 showed no evidence of metastatic disease Mrs Melton underwent bronchoscopy and mediastinoscopy on 10/29/2018 and a para-aortic mass obtained via mediastinoscopy shows non-small cell lung cancer, squamous cell type. 25 year history of smoking ,quit smoking on 08/21/2018, Mrs Melton was started on combined chemoradiation to The thorax on 11/13/2018 with weekly carboplatin and Taxol. Completed combined chemoradiation on 01/01/2019. She was referred to orthopedic oncology at [facility] for biopsy-proven negative or Inconclusive as it showed scant necrotic neoplasm or but radiologically suspicious left femur pathological fracture. She had had 20 pound weight loss within [address] PET scan done on 12/06/2018 showed hypermetabolic left mediastinal mass with SUV of 9.2 this is inseparable from mediastinum and demonstrates invasion. An 1.7 x 2.5 cm sub-aortic lymph node with a mild FDG activity. Left femur intramedullary kari is in place with only mild postsurgical inflammatory activity Patient underwent left femur biopsy on 12/08/2018 and As per patient pathology was inconclusive for metastatic disease but clinical impression is still in favor of metastatic disease and she has completed radiation therapy to her femur Molecular profiling on tumor came back negative Mrs Melton on chemotherapy with carboplatin/Taxol/Keytruda ???4 on 02/25/2019, after 4 cycles, with a plan of repeating CT PET scan. If it showed good response then consider maintenance therapy with Keytruda alone Because of related side effects, with second cycle and on, her Taxol dose was changed to day 1 and day 8 but continue with Keytruda/carboplatin every 3 weeks noted some fullness in her left arm but no pain. For which she underwent left upper extremity venous Doppler study on 03/19/2019 which showed partial DVT seen within subclavian vein near the jugular. All other vessels appear free of thrombosis. Patient was evaluated in emergency room and was started on Eliquis 10 mg by mouth twice a day for 7 days which is completed on 03/26/2019 therafter 5 mg twice a day as a maintenance. And her Port-A-Cath was still functional and needed to continue with chemotherapy and then for maintenance therapy with Keytruda. Because of progressive pancytopenia her consolidation therapy with with carboplatin/Taxol/Keytruda was discontinued after 2 cycles and follow-up CT PET scan done on 05/02/2019 showed the left Mediastinal mass was 0.8 x 2.3 cm with SUV of 2.3 consistent with complete response to therapy. Inflammatory infiltrates in the anterior left upper lobe water FDG negative. The subaortic lymph node is no longer identified. No evidence of distant metastatic disease. Switched to maintenance Keytruda 200 mg every 3 weeks up to 24 months on 05/05/2019. Left lower leg swelling, for which she underwent venous Doppler study on 07/17/2019 which reported no evidence of DVT in left lower extremty Follow-up CT PET scan done on 09/26/2019 showed new left upper lobe infiltrates, most suggestive of infection then recurrence. Probable reactive prevascular lymph node And other concern was radiation recall pneumonitis , so decided to hold immunotherapy and she was referred to pulmonology and she was evaluated on 10/27/2019 and his impression was finding consistent with radiation-induced changes. A new bronchodilator was added to her current medication regimen. Immunotherapy with Keytruda had been on hold since 09/15/2019, after reviewing CT scan of chest done on December 04, 2019, Keytruda was restarted on December 08, 2019 The follow-up CT scan of chest done on December 04, 2019 showed left paratracheal and AP window soft tissue mass appears to be slightly larger than previous exam, as mentioned in the impression back in description, it says 4.5 cm mass does not appear to shows any gross deformity or change when compared with previous exam. Done on July 08, 2019. Mediastinum is normal Case was discussed with Dr. De La Cruz radiologist and her impression was pneumonitis seen earlier is better, no significant change compared to previous scan and recommended follow-up CT PET scan in 3 months. She is tolerating maintenance therapy with Keytruda well otherwise. As far left leg pain is concerned patient has seen neurosurgery who recommended her physical therapy as with surgery chances of her improvement is 50-50,Patient preferred physical therapy complaining of skin rash involving back of her shoulders and upper back and arms, itching, denies changing any shampoo or soap, denies any taking new medication as per patient she tried steroids x2 without much help. Immunotherapy is on hold since after March 07, 2020 dose because of persistent skin rash ? immunotherapy related Came for follow-up, complaining of persistent skin rash involving torso and buttocks and upper thighs and bilateral upper extremities, with topical antihistaminic, itching is somewhat better. Denies any mouth sores denies any shortness of breath or wheezing denies any jaundice denies any diarrhea or constipation, denies any postnasal discharge. Medications: Abilify 0.5 Tablet (of 5 mg) Tablet Oral daily, Aspirin 1 (81 mg) Tablet Oral daily, HYDROcodone-Acetaminophen 1 Tablet (of 7.5-325 mg) Oral t.i.d. PRN, LORazepam 0.5 - 1 Tablet (of 1 mg) Oral t.i.d. PRN, Stiolto Respimat Aerosol, solution Inhalation, Wellbutrin XL 1 (300 mg) Tablet SR 24 HR Oral daily, Zoloft 1.5 Tablet (of 100 mg) Oral daily Allergies: Bactrim and Cipro. Review of Systems: Review of Systems is not available for this patient. Vital Signs: Performed on Apr 11, 2020 10:05 Height - 64.00 in Weight - 152.0 lbs (HIGH) BSA - 1.74 sq.m BMI - 26.09 Temperature - 96.8 F (LOW) Pulse - 86 /min Respiration - 16 /min BP - 149/69 mm(hg) (HIGH) O2 Sat - 98 % Pain - 6 Performance Status: 0 - Fully active, able to carry on all predisease activities without restrictions. (ECOG) Physical Examination: ENMT - No mouth sores, no thrush, no jaundice, Respiratory - Lungs are clear to auscultation, Cardiovascular - Regular rate and rhythm of heart , Abdomen - Soft, bowel sounds present, Extremities - No visible edema. Lab/Imaging: Test performed on Feb 29, 2020 13:35 Sodium 137 mmol/L Potassium 4.4 mmol/L Chloride 100 mmol/L CO2 27 mmol/L Anion Gap 14.4 BUN 16 mg/dL Creatinine 0.6 mg/dL Cr Clearance (Est) 111.5300 mL/min eGFR 105.0 mL/min Glucose 107 mg/dL Calcium 9.1 mg/dL Protein, Total 7.0 g/dL Albumin 4.2 g/dL Globulin 2.8 g/dL Bilirubin, Total 0.2 mg/dL ALT (SGPT) 21 U/L AST (SGOT) 26 U/L Alkaline Phosphatase 64 IU/L Test performed on Jan 18, 2020 15:00 TSH 1.27 uIU/mL WBC 6.1 10 3/uL RBC 3.77 10 6/uL HGB 11.7 g/dL HCT 35.5 % MCV 94.2 fL MCH 31.0 pg MCHC 33.0 g/dL RDW 12.6 % Platelet Count 211 10 3/cmm MPV 8.8 fL Neutrophils 3.88 10 3/uL Lymphocytes 1.4 10 3/uL Monocytes 0.6 10 3/uL Eosinophils 0.3 10 3/uL Basophils 0.0 10 3/uL Neutrophil % 63.3 % Lymphocyte % 22.0 % Monocyte % 9.8 % Eosinophil % 4.4 % Basophils % 0.3 % NRBC % 0 % Impression: Squamous cell carcinoma involving left paratracheal area for mediastinoscopy done on 10/29/2018 CT scan of chest abdomen pelvis done on 10/22/2018 showed large lobulated left mediastinal mass measuring 7.5 x 5.7 x 6 cm. Centered in the left paratracheal and AP window. Suspicious for confluent adenopathy. Partially encasing the left subclavian artery, aorta, left main pulmonary artery and left main stem bronchus. Subcentimeter right upper and lingular pulmonary nodules, indeterminate for metastatic disease No metastatic disease to the liver or adrenal glands No bone metastases. MRI head done on 11/19/2018 showed no evidence of metastatic disease As per radiation oncology patient still awaiting approval from Medicaid for CT PET scan History of smoking for 25 years, quit smoking on 10/21/2018. Bone scan done on 10/22/2018 showed abnormal uptake involving left mid femur through the femoral condyles. Photopenia defect in the femoral diaphysis at the site of pathological fracture consistent with malignancy. No additional bone metastases seen. CT PET scan done on 12/06/2018 shows hypermetabolic left paraMediastinal mass with SUV of 9.2 and is inseparable from the mediastinum and demonstrates invasion. A cystic 1.7 x 2.5 cm subaortic node demonstrates mild FDG activity. And left femur intramedullary kari is in place, with only mild postsurgical inflammatory activity. History of left femur fracture due to fall, status post open reduction and internal fixation done on 10/22/2018, open biopsy was negative for metastatic disease Now being referred to orthopedic oncology at [facility] for second opinion Left femur biopsy was done on 12/08/2018. Started on combined chemoradiation to the chest wall with weekly carboplatin Taxol on 11/13/2018. Per Ms Melton, radiation therapy to left femur was also added on 11/24/2018.She compared to combined chemoradiation to her chest on 01/01/2019 and also received radiation to her left femur for metastatic disease but biopsy was inconclusive Started on consolidation therapy with Keytruda/Taxol/carboplatin ???3 on 02/26/2019 Consolidation therapy was discontinued after two cycles because of progressive pancytopenia and more severe thrombocytopenia. On 03/26/2019 and follow-up CT PET scan done on 05/02/2019 showed excellent response to therapy and she was switched to maintenance therapy with Keytruda alone 200 mg every 3 weeks up to 24 months as long as tolerating and there is a no evidence of disease progression. She began her first dose of single agent pembrolizumab on 05/21/2019. She is on a 3-week cycle. She is tolerating it well thus far. Plan: Discussed with patient regarding her labs white blood count 5.5 hemoglobin 11.2 hematocrit 34.5 platelets 220,000 CMP within normal limits Clinically, patient doing reasonably well but concerned about persistent maculopapular rash involving torso/bilateral upper extremities/buttocks and upper thighs, in the past she has tried steroids x2 without much help now with topical antihistaminic some relief from itching. Her immunotherapy has been on hold since last dose given on March 07, 2020. At this point, we will refer her to dermatology for evaluation to rule out immunotherapy related skin toxicity, if confirmed, may discontinue immunotherapy. In the meantime also consider follow-up CT PET scan to assess disease status and if there is no evidence of disease and skin rash is confirmed as a dermal toxicity due to immunotherapy then we will hold her further treatment and monitor otherwise if PET scan shows persistent or disease progression, may consider palliative chemotherapy. Patient will return to clinic after dermatology evaluation/CT PET scan for further discussion Signed By: Ame Morgan M.D. <<Signature on File>>
== END 2020-04-16 23:59 | disposition home or self-care (01) ==
LOC: ONCMED 05:31
PROVIDERS: Nurse Practitioner; Visit Provider Internal Medicine Hematology & Oncology
DX: C34.82 Malignant neoplasm of overlapping sites of left bronchus and lung (principal); M79.605 Pain in left leg; Z79.899 Other long term (current) drug therapy; Z79.891 Long term (current) use of opiate analgesic; Z87.891 Personal history of nicotine dependence; Z92.3 Personal history of irradiation; Z92.21 Personal history of antineoplastic chemotherapy
CPT/HCPCS: 36591; 73610; 80053; 84443; 85025; 99214

== ENCOUNTER 2020-05-02 05:28 | Outpatient (RCR) | payer MEDICAID, SELFPAY ==
[2020-04-29 11:21] LABS: Basophils % 0.3 %; Eosinophils # 0.5 10^3/uL (0.0-0.8); Eosinophils % 7.6 %; Hematocrit 35.5 % (37.0-47.0); Hemoglobin 11.7 g/dL (11.5-15.3); Lymphocytes % 16.2 %; Mean Corpuscular Hemoglobin 31.6 pg (28.0-34.0); Mean Corpuscular Volume 95.9 fL (81-99); Mean Platelet Volume 9.2 fL (7.4-10.4); Monocytes # 0.5 10^3/uL (0.2-0.9); Neutrophils # 3.93 10^3/uL (1.8-7.7); Neutrophils % 66.6 %; Nucleated Red Blood Cells % 0 %; Platelet Count 229 10^3/cmm (130-400); Red Cell Distribution Width 12.4 % (12.1-15.1); White Blood Count 5.9 10^3/uL (4.0-10.0)
[2020-04-29 11:31] LABS: Alanine Aminotransferase 25 U/L (0-33); Albumin Level 4.1 g/dL (3.5-5.2); Alkaline Phosphatase 73 IU/L (35-105); Anion Gap 14.9 (5-19); Aspartate Amino Transferase 25 U/L (0-32); Blood Urea Nitrogen 14 mg/dL (6-20); Carbon Dioxide 26 mmol/L (22-29); Chloride 102 mmol/L (98-107); Globulin 2.9 g/dL (1.3-4.6); Glomerular Filtration Rate 129.6 mL/min (90-130); Glucose 147 mg/dL (65-115); Osmolality Calculated 291 mOsm/kg (285-295); Potassium 3.9 mmol/L (3.5-5.1); Sodium 139 mmol/L (136-145); Total Bilirubin 0.2 mg/dL (0.15-1.2)
== END 2020-05-16 23:59 | disposition home or self-care (01) ==
LOC: ONCMED 05:28
PROVIDERS: Internal Medicine Hematology & Oncology; Visit Provider Nurse Practitioner
DX: C34.82 Malignant neoplasm of overlapping sites of left bronchus and lung (principal); M84.452A Pathological fracture, left femur, initial encounter for fracture
CPT/HCPCS: 36591; 80053; 85025

== ENCOUNTER → 2020-05-16 07:56 | Outpatient (BNVA) | payer MEDICAID, SELFPAY | PROVIDERS: Visit Provider Nurse Practitioner | DX: F43.12 Post-traumatic stress disorder, chronic (principal) | CPT/HCPCS: 99213 ==

== ENCOUNTER 2020-05-30 05:30 | Outpatient (RCR) | payer MEDICAID, SELFPAY ==
[2020-05-27 11:29] LABS: Basophils % 0.2 %; Eosinophils # 0.5 10^3/uL (0.0-0.8); Eosinophils % 8.8 %; Hemoglobin 10.9 g/dL (11.5-15.3); Lymphocytes # 0.9 10^3/uL (0.8-4.8); Lymphocytes % 16.2 %; Mean Corpuscular Hemoglobin 31.2 pg (28.0-34.0); Mean Corpuscular Volume 94.6 fL (81-99); Mean Platelet Volume 8.8 fL (7.4-10.4); Monocytes # 0.7 10^3/uL (0.2-0.9); Monocytes % 11.4 %; Neutrophils # 3.67 10^3/uL (1.8-7.7); Neutrophils % 63.1 %; Nucleated Red Blood Cells % 0 %; Platelet Count 208 10^3/cmm (130-400); Red Blood Count 3.49 10^6/uL (4.1-5.3); Red Cell Distribution Width 12.5 % (12.1-15.1); White Blood Count 5.8 10^3/uL (4.0-10.0)
[2020-05-27 12:09] LABS: Alanine Aminotransferase 13 U/L (0-33); Alkaline Phosphatase 62 IU/L (35-105); Aspartate Amino Transferase 17 U/L (0-32); Blood Urea Nitrogen 16 mg/dL (6-20); Calcium 8.9 mg/dL (8.5-10.5); Carbon Dioxide 28 mmol/L (22-29); Chloride 102 mmol/L (98-107); Globulin 2.7 g/dL (1.3-4.6); Glomerular Filtration Rate 87.9 mL/min (90-130); Glucose 103 mg/dL (65-115); Osmolality Calculated 287 mOsm/kg (285-295); Sodium 138 mmol/L (136-145); Thyroid Stimulating Hormone 1.37 uIU/mL (0.27-4.20); Total Bilirubin 0.2 mg/dL (0.15-1.2); Total Protein 6.7 g/dL (6.6-8.7)
--- NOTE | 2020-05-30 09:44 | ONC FU_ITS ---
Dr. Morgan follow up note Patient: Tracy Melton Unit #: [id number]: [id number] Dicatated By: Ame Morgan M.D.Date of Visit:May 30, 2020 Onc Med Follow-up/Prog Note History of Present Illness: Mrs. Melton is a 50-year-old female who presented to [facility] with left femur fracture. CT scan of the left femur showed pathological fracture of mid to distal femoral shaft with findings highly worrisome for underlying malignancy/metastatic disease. A bone scan was done on 10/22/2018. It reported abnormal uptake involving mid left femur through femoral condyles. Photopenia defect in the femoral diaphysis at the site of pathological fracture. Consistent with malignancy. No additional abnormal uptake throughout the bony skeleton to suggest the metastatic disease. Subsequently, she underwent open reduction and internal fixation on 10/22/2018. An open biopsy was obtained and it came back negative for malignancy. For further workup, Ms Melton underwent CT scan of chest abdomen pelvis on 10/22/2018. The scans showed large lobulated left mediastinal mass measuring 7.5 x 5.7 x 6 cm. Centered in the left paratracheal and AP window. Suspicious for confluent lymphadenopathy. Partially encasing the left subclavian artery, aorta, left main pulmonary artery and left main stem bronchus; Subcentimeter right upper and lingular pulmonary nodules, indeterminate for metastatic disease; Hepatic hemangioma; No metastatic disease to liver or adrenal glands; No bony lesion seen. MRI head done on 11/19/2018 showed no evidence of metastatic disease Mrs Melton underwent bronchoscopy and mediastinoscopy on 10/29/2018 and a para-aortic mass obtained via mediastinoscopy shows non-small cell lung cancer, squamous cell type. 25 year history of smoking ,quit smoking on 08/21/2018, Mrs Melton was started on combined chemoradiation to The thorax on 11/13/2018 with weekly carboplatin and Taxol. Completed combined chemoradiation on 01/01/2019. She was referred to orthopedic oncology at [facility] for biopsy-proven negative or Inconclusive as it showed scant necrotic neoplasm or but radiologically suspicious left femur pathological fracture. She had had 20 pound weight loss within [address] PET scan done on 12/06/2018 showed hypermetabolic left mediastinal mass with SUV of 9.2 this is inseparable from mediastinum and demonstrates invasion. An 1.7 x 2.5 cm sub-aortic lymph node with a mild FDG activity. Left femur intramedullary kari is in place with only mild postsurgical inflammatory activity Patient underwent left femur biopsy on 12/08/2018 and As per patient pathology was inconclusive for metastatic disease but clinical impression is still in favor of metastatic disease and she has completed radiation therapy to her femur Molecular profiling on tumor came back negative Mrs Melton on chemotherapy with carboplatin/Taxol/Keytruda ???4 on 02/25/2019, after 4 cycles, with a plan of repeating CT PET scan. If it showed good response then consider maintenance therapy with Keytruda alone Because of related side effects, with second cycle and on, her Taxol dose was changed to day 1 and day 8 but continue with Keytruda/carboplatin every 3 weeks noted some fullness in her left arm but no pain. For which she underwent left upper extremity venous Doppler study on 03/19/2019 which showed partial DVT seen within subclavian vein near the jugular. All other vessels appear free of thrombosis. Patient was evaluated in emergency room and was started on Eliquis 10 mg by mouth twice a day for 7 days which is completed on 03/26/2019 therafter 5 mg twice a day as a maintenance. And her Port-A-Cath was still functional and needed to continue with chemotherapy and then for maintenance therapy with Keytruda. Because of progressive pancytopenia her consolidation therapy with with carboplatin/Taxol/Keytruda was discontinued after 2 cycles and follow-up CT PET scan done on 05/02/2019 showed the left Mediastinal mass was 0.8 x 2.3 cm with SUV of 2.3 consistent with complete response to therapy. Inflammatory infiltrates in the anterior left upper lobe water FDG negative. The subaortic lymph node is no longer identified. No evidence of distant metastatic disease. Switched to maintenance Keytruda 200 mg every 3 weeks up to 24 months on 05/05/2019. Left lower leg swelling, for which she underwent venous Doppler study on 07/17/2019 which reported no evidence of DVT in left lower extremty Follow-up CT PET scan done on 09/26/2019 showed new left upper lobe infiltrates, most suggestive of infection then recurrence. Probable reactive prevascular lymph node And other concern was radiation recall pneumonitis , so decided to hold immunotherapy and she was referred to pulmonology and she was evaluated on 10/27/2019 and his impression was finding consistent with radiation-induced changes. A new bronchodilator was added to her current medication regimen. Immunotherapy with Keytruda had been on hold since 09/15/2019, after reviewing CT scan of chest done on December 04, 2019, Keytruda was restarted on December 08, 2019 The follow-up CT scan of chest done on December 04, 2019 showed left paratracheal and AP window soft tissue mass appears to be slightly larger than previous exam, as mentioned in the impression back in description, it says 4.5 cm mass does not appear to shows any gross deformity or change when compared with previous exam. Done on July 08, 2019. Mediastinum is normal Case was discussed with Dr. De La Cruz radiologist and her impression was pneumonitis seen earlier is better, no significant change compared to previous scan and recommended follow-up CT PET scan in 3 months. She is tolerating maintenance therapy with Keytruda well otherwise. As far left leg pain is concerned patient has seen neurosurgery who recommended her physical therapy as with surgery chances of her improvement is 50-50,Patient preferred physical therapy complaining of skin rash involving back of her shoulders and upper back and arms, itching, denies changing any shampoo or soap, denies any taking new medication as per patient she tried steroids x2 without much help. Immunotherapy is on hold since after March 07, 2020 dose because of persistent skin rash ? immunotherapy related, Skin biopsy from right flank area, As per discussion with dermatologyOn May 30, 2020, patient has drug-induced skin rash CT PET scan done on April 30, 2020 shows new left upper lobe paramediastinal infiltrate is FDG positive, likely inflammatory and other new inflammatory appearing infiltrates are present in the medial right upper and superior segment of right lower lobe. The reactive prevascular mediastinal lymph node seen previously is now FDG negative. Peripheral left upper lobe infiltrate seen on prior studies generally improved on the current. Came for follow-up, denies any specific complaints, no fever chills, no nausea or vomiting, no diarrhea or constipation, no nosebleed or gum bleed, no wheezing, but persistent skin rash but improving, she has seen dermatology and underwent skin biopsy last week, as per patient she was told there is no drug-related. Other than that patient is complaining of persistent mild dyspnea on exertion but no shortness of breath or wheezing at rest patient denies smoking but admits secondhand smoking. Denies any hemoptysis or hematemesis denies any diarrhea or melena or hematochezia. Medications: Abilify 0.5 Tablet (of 5 mg) Tablet Oral daily, Aspirin 1 (81 mg) Tablet Oral daily, HYDROcodone-Acetaminophen 1 Tablet (of 7.5-325 mg) Oral t.i.d. PRN, LORazepam 0.5 - 1 Tablet (of 1 mg) Oral t.i.d. PRN, Stiolto Respimat Aerosol, solution Inhalation, Wellbutrin XL 1 (300 mg) Tablet SR 24 HR Oral daily, Zoloft 1.5 Tablet (of 100 mg) Oral daily Allergies: Bactrim and Cipro. Review of Systems: Constitutional - Appetite is fair and weight is stable. Energy level is fair, ENMT - No sinus congestion/drainage. No mouth sores. No sore throat or difficulty swallowing, Hematologic/Lymphatic - No abnormal bruising or bleeding, Respiratory - Positive for occasional shortness of breath and cough, Cardiovascular - No angina pain. No palpitations, Gastrointestinal - No nausea, no vomiting. No heartburn postive for acid reflux. No diarrhea, no constipation. No blood in the stool or black stools, Genitourinary (F) - No urinary symptoms today, Musculoskeletal - Positive for joint pain, Neurologic - Positive for occasional dizziness and Hx of head injury, Psychiatric - Positive for anxiety/depression/insomnia. Vital Signs: Performed on May 30, 2020 08:26 Height - 64.00 in Weight - 155.0 lbs (HIGH) BSA - 1.76 sq.m BMI - 26.61 Temperature - 98.6 F Pulse - 98 /min Respiration - 18 /min BP - 117/60 mm(hg) O2 Sat - 96 % Pain - 6 Performance Status: 1 - No physically strenuous activity, but ambulatory and able to carry out light or sedentary work (e.g. office work, light house work). (ECOG) Physical Examination: ENMT - No mouth sores, no thrush, no jaundice, Respiratory - Poor air entry otherwise clear, Cardiovascular - Regular rate and rhythm of heart, Abdomen - Soft, bowel sounds present, Extremities - Chronic trace edema left leg otherwise unremarkable. Lab/Imaging: Test performed on May 27, 2020 11:12 Sodium 138 mmol/L TSH 1.37 uIU/mL Potassium 4.0 mmol/L Chloride 102 mmol/L CO2 28 mmol/L Anion Gap 12.0 BUN 16 mg/dL Creatinine 0.7 mg/dL Cr Clearance (Est) 103.5400 mL/min eGFR 87.9 mL/min Glucose 103 mg/dL Osmolality - Calculated 287 mOsm/kg Calcium 8.9 mg/dL Protein, Total 6.7 g/dL Albumin 4.0 g/dL Globulin 2.7 g/dL Bilirubin, Total 0.2 mg/dL ALT (SGPT) 13 U/L AST (SGOT) 17 U/L Alkaline Phosphatase 62 IU/L WBC 5.8 10 3/uL RBC 3.49 10 6/uL HGB 10.9 g/dL HCT 33.0 % MCV 94.6 fL MCH 31.2 pg MCHC 33.0 g/dL RDW 12.5 % Platelet Count 208 10 3/cmm MPV 8.8 fL Neutrophils 3.67 10 3/uL Lymphocytes 0.9 10 3/uL Monocytes 0.7 10 3/uL Eosinophils 0.5 10 3/uL Basophils 0.0 10 3/uL Neutrophil % 63.1 % Lymphocyte % 16.2 % Monocyte % 11.4 % Eosinophil % 8.8 % Basophils % 0.2 % NRBC % 0 % Impression: Squamous cell carcinoma involving left paratracheal area for mediastinoscopy done on 10/29/2018 CT scan of chest abdomen pelvis done on 10/22/2018 showed large lobulated left mediastinal mass measuring 7.5 x 5.7 x 6 cm. Centered in the left paratracheal and AP window. Suspicious for confluent adenopathy. Partially encasing the left subclavian artery, aorta, left main pulmonary artery and left main stem bronchus. Subcentimeter right upper and lingular pulmonary nodules, indeterminate for metastatic disease No metastatic disease to the liver or adrenal glands No bone metastases. MRI head done on 11/19/2018 showed no evidence of metastatic disease As per radiation oncology patient still awaiting approval from Medicaid for CT PET scan History of smoking for 25 years, quit smoking on 10/21/2018. Bone scan done on 10/22/2018 showed abnormal uptake involving left mid femur through the femoral condyles. Photopenia defect in the femoral diaphysis at the site of pathological fracture consistent with malignancy. No additional bone metastases seen. CT PET scan done on 12/06/2018 shows hypermetabolic left paraMediastinal mass with SUV of 9.2 and is inseparable from the mediastinum and demonstrates invasion. A cystic 1.7 x 2.5 cm subaortic node demonstrates mild FDG activity. And left femur intramedullary kari is in place, with only mild postsurgical inflammatory activity. History of left femur fracture due to fall, status post open reduction and internal fixation done on 10/22/2018, open biopsy was negative for metastatic disease Now being referred to orthopedic oncology at [facility] for second opinion Left femur biopsy was done on 12/08/2018. Started on combined chemoradiation to the chest wall with weekly carboplatin Taxol on 11/13/2018. Per Ms Geronimo, radiation therapy to left femur was also added on 11/24/2018.She compared to combined chemoradiation to her chest on 01/01/2019 and also received radiation to her left femur for metastatic disease but biopsy was inconclusive Started on consolidation therapy with Keytruda/Taxol/carboplatin ???3 on 02/26/2019 Consolidation therapy was discontinued after two cycles because of progressive pancytopenia and more severe thrombocytopenia. On 03/26/2019 and follow-up CT PET scan done on 05/02/2019 showed excellent response to therapy and she was switched to maintenance therapy with Keytruda alone 200 mg every 3 weeks up to 24 months as long as tolerating and there is a no evidence of disease progression. She began her first dose of single agent pembrolizumab on 05/21/2019. She is on a 3-week cycle. Because of progressive maculopapular skin rash involving torso and arms, Keytruda was put on hold and last dose was given on March 07, 2020 Skin biopsy was done in the first week of May 2020 from right flank showed findings consistent with drug-induced skin toxicity Follow-up CT PET scan done on April 30, 2020 showed no evidence of recurrence of disease but new left upper lobe paramediastinal infiltrate is FDG positive, likely inflammatory. Other new inflammatory appearing infiltrates are present in the medial right upper and superior segment of right lower lobe. The reactive prevascular mediastinal lymph node seen previously is now FDG negative Plan: Discussed with patient regarding her labs white blood count 5.8 hemoglobin 10.9 hematocrit 33 platelets 208,000 CMP within normal limits TSH 1.37, CT PET scan done on April 30, 2020 showed no evidence of recurrence of disease but new bilateral pulmonary infiltrates Clinically, patient is doing reasonably well, her skin rash is improving, patient has seen dermatology recently and underwent right flank skin biopsy and as per discussion with Dr. Warner, bowling alley attendant, skin biopsy findings consistent with drug-induced skin rash. Her last dose of immunotherapy with Keytruda was given on March 07, 2020, and her follow-up CT PET scan shows patchy infiltrates in bilateral lung, 1 new left upper lobe paramediastinal infiltrate and other new inflammatory appearing infiltrate seen in the medial right upper and superior segment of right lower lobe, concerned about immunotherapy related pulmonary infiltrates, could be due to immunotherapy so, it was decided to discontinue therapy, as PET scan shows no evidence of recurrence of disease but new pulmonary infiltrate for which we will refer her to pulmonology for evaluation and if to confirm immunotherapy related, in that case it makes sense not to rechallenge her with immunotherapy again, especially when PET scan shows no evidence of recurrence of disease and Mild anemia, will continue to monitor, patient will return to clinic in 2 weeks with CBC and hopefully by that time she will have pulmonology evaluation. Signed By: Ame Morgan M.D. <<Signature on File>>
== END 2020-06-16 23:59 | disposition home or self-care (01) ==
LOC: ONCMED 05:30
PROVIDERS: Visit Provider Internal Medicine Hematology & Oncology
DX: C34.82 Malignant neoplasm of overlapping sites of left bronchus and lung (principal); C79.51 Secondary malignant neoplasm of bone; M84.452A Pathological fracture, left femur, initial encounter for fracture; D69.59 Other secondary thrombocytopenia; T45.1X5A Adverse effect of antineoplastic and immunosuppressive drugs, initial encounter; E03.9 Hypothyroidism, unspecified; Z87.891 Personal history of nicotine dependence; Z79.899 Other long term (current) drug therapy
CPT/HCPCS: 36591; 80053; 84443; 85025; 99214

== ENCOUNTER 2020-06-27 12:56 | Outpatient (RCR) | payer MEDICAID, SELFPAY ==
[2020-06-27 13:15] LABS: Basophils % 0.3 %; Eosinophils # 0.9 10^3/uL (0.0-0.8); Eosinophils % 13.1 %; Hematocrit 36.5 % (37.0-47.0); Hemoglobin 11.8 g/dL (11.5-15.3); Lymphocytes # 1.2 10^3/uL (0.8-4.8); Lymphocytes % 17.5 %; Mean Corpuscular HGB Conc 32.3 g/dL (30.0-36.0); Mean Corpuscular Hemoglobin 31.1 pg (28.0-34.0); Mean Corpuscular Volume 96.3 fL (81-99); Mean Platelet Volume 8.7 fL (7.4-10.4); Monocytes # 0.7 10^3/uL (0.2-0.9); Monocytes % 11.2 %; Neutrophils # 3.74 10^3/uL (1.8-7.7); Neutrophils % 56.8 %; Nucleated Red Blood Cells % 0 %; Platelet Count 230 10^3/cmm (130-400); Red Blood Count 3.79 10^6/uL (4.1-5.3); Red Cell Distribution Width 13.1 % (12.1-15.1); White Blood Count 6.6 10^3/uL (4.0-10.0)
--- NOTE | 2020-06-27 15:28 | ONC FU_ITS ---
Dr. Morgan follow up note Patient: Tracy Melton Unit #: [id number]: [id number] Dicatated By: Ame Morgan M.D.Date of Visit:Jun 27, 2020 Onc Med Follow-up/Prog Note History of Present Illness: Mrs. Melton is a 50-year-old female who presented to [facility] with left femur fracture. CT scan of the left femur showed pathological fracture of mid to distal femoral shaft with findings highly worrisome for underlying malignancy/metastatic disease. A bone scan was done on 10/22/2018. It reported abnormal uptake involving mid left femur through femoral condyles. Photopenia defect in the femoral diaphysis at the site of pathological fracture. Consistent with malignancy. No additional abnormal uptake throughout the bony skeleton to suggest the metastatic disease. Subsequently, she underwent open reduction and internal fixation on 10/22/2018. An open biopsy was obtained and it came back negative for malignancy. For further workup, Ms Melton underwent CT scan of chest abdomen pelvis on 10/22/2018. The scans showed large lobulated left mediastinal mass measuring 7.5 x 5.7 x 6 cm. Centered in the left paratracheal and AP window. Suspicious for confluent lymphadenopathy. Partially encasing the left subclavian artery, aorta, left main pulmonary artery and left main stem bronchus; Subcentimeter right upper and lingular pulmonary nodules, indeterminate for metastatic disease; Hepatic hemangioma; No metastatic disease to liver or adrenal glands; No bony lesion seen. MRI head done on 11/19/2018 showed no evidence of metastatic disease Mrs Melton underwent bronchoscopy and mediastinoscopy on 10/29/2018 and a para-aortic mass obtained via mediastinoscopy shows non-small cell lung cancer, squamous cell type. 25 year history of smoking ,quit smoking on 08/21/2018, Mrs Melton was started on combined chemoradiation to The thorax on 11/13/2018 with weekly carboplatin and Taxol. Completed combined chemoradiation on 01/01/2019. She was referred to orthopedic oncology at [facility] for biopsy-proven negative or Inconclusive as it showed scant necrotic neoplasm or but radiologically suspicious left femur pathological fracture. She had had 20 pound weight loss within [address] PET scan done on 12/06/2018 showed hypermetabolic left mediastinal mass with SUV of 9.2 this is inseparable from mediastinum and demonstrates invasion. An 1.7 x 2.5 cm sub-aortic lymph node with a mild FDG activity. Left femur intramedullary kari is in place with only mild postsurgical inflammatory activity Patient underwent left femur biopsy on 12/08/2018 and As per patient pathology was inconclusive for metastatic disease but clinical impression is still in favor of metastatic disease and she has completed radiation therapy to her femur Molecular profiling on tumor came back negative Mrs Melton on chemotherapy with carboplatin/Taxol/Keytruda ???4 on 02/25/2019, after 4 cycles, with a plan of repeating CT PET scan. If it showed good response then consider maintenance therapy with Keytruda alone Because of related side effects, with second cycle and on, her Taxol dose was changed to day 1 and day 8 but continue with Keytruda/carboplatin every 3 weeks noted some fullness in her left arm but no pain. For which she underwent left upper extremity venous Doppler study on 03/19/2019 which showed partial DVT seen within subclavian vein near the jugular. All other vessels appear free of thrombosis. Patient was evaluated in emergency room and was started on Eliquis 10 mg by mouth twice a day for 7 days which is completed on 03/26/2019 therafter 5 mg twice a day as a maintenance. And her Port-A-Cath was still functional and needed to continue with chemotherapy and then for maintenance therapy with Keytruda. Because of progressive pancytopenia her consolidation therapy with with carboplatin/Taxol/Keytruda was discontinued after 2 cycles and follow-up CT PET scan done on 05/02/2019 showed the left Mediastinal mass was 0.8 x 2.3 cm with SUV of 2.3 consistent with complete response to therapy. Inflammatory infiltrates in the anterior left upper lobe water FDG negative. The subaortic lymph node is no longer identified. No evidence of distant metastatic disease. Switched to maintenance Keytruda 200 mg every 3 weeks up to 24 months on 05/05/2019. Left lower leg swelling, for which she underwent venous Doppler study on 07/17/2019 which reported no evidence of DVT in left lower extremty Follow-up CT PET scan done on 09/26/2019 showed new left upper lobe infiltrates, most suggestive of infection then recurrence. Probable reactive prevascular lymph node And other concern was radiation recall pneumonitis , so decided to hold immunotherapy and she was referred to pulmonology and she was evaluated on 10/27/2019 and his impression was finding consistent with radiation-induced changes. A new bronchodilator was added to her current medication regimen. Immunotherapy with Keytruda had been on hold since 09/15/2019, after reviewing CT scan of chest done on December 04, 2019, Keytruda was restarted on December 08, 2019 The follow-up CT scan of chest done on December 04, 2019 showed left paratracheal and AP window soft tissue mass appears to be slightly larger than previous exam, as mentioned in the impression back in description, it says 4.5 cm mass does not appear to shows any gross deformity or change when compared with previous exam. Done on July 08, 2019. Mediastinum is normal Case was discussed with Dr. De La Cruz radiologist and her impression was pneumonitis seen earlier is better, no significant change compared to previous scan and recommended follow-up CT PET scan in 3 months. She is tolerating maintenance therapy with Keytruda well otherwise. As far left leg pain is concerned patient has seen neurosurgery who recommended her physical therapy as with surgery chances of her improvement is 50-50,Patient preferred physical therapy complaining of skin rash involving back of her shoulders and upper back and arms, itching, denies changing any shampoo or soap, denies any taking new medication as per patient she tried steroids x2 without much help. Immunotherapy is on hold since after March 07, 2020 dose because of persistent skin rash ? immunotherapy related, Skin biopsy from right flank area, As per discussion with dermatologyOn May 30, 2020, patient has drug-induced skin rash Probably due to Keytruda CT PET scan done on April 30, 2020 shows new left upper lobe paramediastinal infiltrate is FDG positive, likely inflammatory and other new inflammatory appearing infiltrates are present in the medial right upper and superior segment of right lower lobe. The reactive prevascular mediastinal lymph node seen previously is now FDG negative. Peripheral left upper lobe infiltrate seen on prior studies generally improved on the current.Was referred to pulmonology to rule out immunotherapy related pneumonitis and She was evaluated on June 21, 2020 and impression was those infiltrates seen on CT PET scan will work secondary to radiation therapy and scarring, and airspace opacity, bronchiectasis in a linear pattern., As per discussion with pulmonology these changes are less likely secondary to immunotherapy. Came for follow-up, still complaining of generalized rash but now improving and followed by Dr. Warner braille coder. But denies any wheezing or shortness of breath denies any diarrhea or constipation denies any abdominal pain denies any hemoptysis or hematemesis, patient has seen pulmonology recently, overall feeling much better.No new bony pains, no headaches blurred vision double vision, no jaundice Medications: Abilify 0.5 Tablet (of 5 mg) Tablet Oral daily, Aspirin 1 (81 mg) Tablet Oral daily, HYDROcodone-Acetaminophen 1 Tablet (of 7.5-325 mg) Oral t.i.d. PRN, LORazepam 0.5 - 1 Tablet (of 1 mg) Oral t.i.d. PRN, Stiolto Respimat Aerosol, solution Inhalation, Wellbutrin XL 1 (300 mg) Tablet SR 24 HR Oral daily, Zoloft 1.5 Tablet (of 100 mg) Oral daily Allergies: Bactrim and Cipro. Review of Systems: Constitutional - Appetite is fair and weight is stable. Energy level is fair, ENMT - No sinus congestion/drainage. No mouth sores. No sore throat or difficulty swallowing, Hematologic/Lymphatic - No abnormal bruising or bleeding, Respiratory - Positive for occasional shortness of breath and cough, Cardiovascular - No angina pain. No palpitations, Gastrointestinal - No nausea, no vomiting. No heartburn postive for acid reflux. No diarrhea, no constipation. No blood in the stool or black stools, Genitourinary (F) - No urinary symptoms today, Musculoskeletal - Positive for joint pain, Neurologic - Positive for occasional dizziness and Hx of head injury, Psychiatric - Positive for anxiety/depression/insomnia. Vital Signs: Performed on Jun 27, 2020 14:41 Height - 64.00 in Weight - 150.0 lbs (LOW) BSA - 1.73 sq.m BMI - 25.75 Temperature - 98.4 F Pulse - 95 /min Respiration - 16 /min BP - 135/64 mm(hg) O2 Sat - 98 % Pain - 6 Performance Status: 1 - No physically strenuous activity, but ambulatory and able to carry out light or sedentary work (e.g. office work, light house work). (ECOG) Physical Examination: ENMT - No mouth sores, no thrush, no jaundice, Respiratory - Lungs are clear to auscultation, Cardiovascular - Regular rate and rhythm of heart, Abdomen - Soft, bowel sounds present, Extremities - No visible deformities, no cyanosis, clubbing or edema. Pulses 4+ and equal bilaterally. Lab/Imaging: Test performed on May 27, 2020 11:12 Sodium 138 mmol/L TSH 1.37 uIU/mL Potassium 4.0 mmol/L Chloride 102 mmol/L CO2 28 mmol/L Anion Gap 12.0 BUN 16 mg/dL Creatinine 0.7 mg/dL Cr Clearance (Est) 103.5400 mL/min eGFR 87.9 mL/min Glucose 103 mg/dL Osmolality - Calculated 287 mOsm/kg Calcium 8.9 mg/dL Protein, Total 6.7 g/dL Albumin 4.0 g/dL Globulin 2.7 g/dL Bilirubin, Total 0.2 mg/dL ALT (SGPT) 13 U/L AST (SGOT) 17 U/L Alkaline Phosphatase 62 IU/L WBC 5.8 10 3/uL RBC 3.49 10 6/uL HGB 10.9 g/dL HCT 33.0 % MCV 94.6 fL MCH 31.2 pg MCHC 33.0 g/dL RDW 12.5 % Platelet Count 208 10 3/cmm MPV 8.8 fL Neutrophils 3.67 10 3/uL Lymphocytes 0.9 10 3/uL Monocytes 0.7 10 3/uL Eosinophils 0.5 10 3/uL Basophils 0.0 10 3/uL Neutrophil % 63.1 % Lymphocyte % 16.2 % Monocyte % 11.4 % Eosinophil % 8.8 % Basophils % 0.2 % NRBC % 0 % Impression: Squamous cell carcinoma involving left paratracheal area for mediastinoscopy done on 10/29/2018 CT scan of chest abdomen pelvis done on 10/22/2018 showed large lobulated left mediastinal mass measuring 7.5 x 5.7 x 6 cm. Centered in the left paratracheal and AP window. Suspicious for confluent adenopathy. Partially encasing the left subclavian artery, aorta, left main pulmonary artery and left main stem bronchus. Subcentimeter right upper and lingular pulmonary nodules, indeterminate for metastatic disease No metastatic disease to the liver or adrenal glands No bone metastases. MRI head done on 11/19/2018 showed no evidence of metastatic disease As per radiation oncology patient still awaiting approval from Medicaid for CT PET scan History of smoking for 25 years, quit smoking on 10/21/2018. Bone scan done on 10/22/2018 showed abnormal uptake involving left mid femur through the femoral condyles. Photopenia defect in the femoral diaphysis at the site of pathological fracture consistent with malignancy. No additional bone metastases seen. CT PET scan done on 12/06/2018 shows hypermetabolic left paraMediastinal mass with SUV of 9.2 and is inseparable from the mediastinum and demonstrates invasion. A cystic 1.7 x 2.5 cm subaortic node demonstrates mild FDG activity. And left femur intramedullary kari is in place, with only mild postsurgical inflammatory activity. History of left femur fracture due to fall, status post open reduction and internal fixation done on 10/22/2018, open biopsy was negative for metastatic disease Now being referred to orthopedic oncology at [facility] for second opinion Left femur biopsy was done on 12/08/2018. Started on combined chemoradiation to the chest wall with weekly carboplatin Taxol on 11/13/2018. Per Ms Melton, radiation therapy to left femur was also added on 11/24/2018.She compared to combined chemoradiation to her chest on 01/01/2019 and also received radiation to her left femur for metastatic disease but biopsy was inconclusive Started on consolidation therapy with Keytruda/Taxol/carboplatin ???3 on 02/26/2019 Consolidation therapy was discontinued after two cycles because of progressive pancytopenia and more severe thrombocytopenia. On 03/26/2019 and follow-up CT PET scan done on 05/02/2019 showed excellent response to therapy and she was switched to maintenance therapy with Keytruda alone 200 mg every 3 weeks up to 24 months as long as tolerating and there is a no evidence of disease progression. She began her first dose of single agent pembrolizumab on 05/21/2019. She is on a 3-week cycle. Because of progressive maculopapular skin rash involving torso and arms, Keytruda was put on hold and last dose was given on March 07, 2020 Skin biopsy was done in the first week of May 2020 from right flank showed findings consistent with drug-induced skin toxicity, Keytruda was discontinued after March 07, 2020 dose because of related side effects and toxicity e.g. dermal toxicity and there was a concern about pulmonary toxicity but pulmonology evaluation confirmed bilateral infiltrates seen on CT PET scan were most likely due to radiation-induced pneumonitis or chronic pulmonary changes not due to drug-related Follow-up CT PET scan done on April 30, 2020 showed no evidence of recurrence of disease but new left upper lobe paramediastinal infiltrate is FDG positive, likely inflammatory. Other new inflammatory appearing infiltrates are present in the medial right upper and superior segment of right lower lobe. The reactive prevascular mediastinal lymph node seen previously is now FDG negative As per pulmonology evaluation, these infiltrates are most likely due to radiation-induced pneumonitis or chronic pulmonary changes not drug-related Plan: Discussed with patient regarding her labs white blood count 6.6 hemoglobin 11.8 g compared to 10.9 g on May 27, 2020 hematocrit 36.5 platelets 230,000 Clinically, patient doing reasonably well, overall feeling better since she is off Keytruda as last dose was given on March 07, 2020. There was a concern regarding immunotherapy related pneumonitis and skin toxicity as patient developed progressive skin rash and follow-up CT PET scan shows progressive bilateral pulmonary infiltrates, patient was referred to pulmonology and his impression was bilateral pulmonary infiltrates are less likely due to immunotherapy related pneumonitis rather, radiation-induced changes as well as chronic pulmonary changes but as per dermatology skin biopsy shows spongiotic dermatitis, eosinophilic infiltration findings consistent with drug related most likely due to Keytruda, now her skin rash is improving and being followed by dermatology. Discussed with patient regarding further treatment versus observation her last CT PET scan done in April 2020 showed no evidence of recurrence of disease and now progressive skin rash which was confirmed with skin biopsy due to probably Keytruda induced so at this point we will consider discontinue her Keytruda and observe, will repeat her CT scan of chest abdomen pelvis in a month and then compare with CT PET scan done in April 2020, if it shows no evidence of disease progression then we will continue to monitor. Patient agreed. Return to clinic in [address] scan of chest abdomen pelvis and CBC CMP. As far as anemia is concerned, hemoglobin is improving now in normal range, will monitor. Signed By: Ame Morgan M.D. <<Signature on File>>
== END 2020-07-17 23:59 | disposition home or self-care (01) ==
LOC: ONCMED 12:56
PROVIDERS: Visit Provider Internal Medicine Hematology & Oncology
DX: C34.82 Malignant neoplasm of overlapping sites of left bronchus and lung (principal); M84.452A Pathological fracture, left femur, initial encounter for fracture; R59.0 Localized enlarged lymph nodes; F17.211 Nicotine dependence, cigarettes, in remission; Z92.21 Personal history of antineoplastic chemotherapy; Z79.899 Other long term (current) drug therapy
CPT/HCPCS: 36591; 85025; 99214

== ENCOUNTER → 2020-07-27 08:34 | Outpatient (BNVA) | payer MEDICAID, SELFPAY | PROVIDERS: Visit Provider Nurse Practitioner | DX: F43.12 Post-traumatic stress disorder, chronic (principal) | CPT/HCPCS: 99214 ==

== ENCOUNTER 2020-09-07 08:34 | Outpatient (CLI) | payer MEDICAID, SELFPAY ==
[2020-09-07 09:27] LABS: Basophils % 0.5 %; Eosinophils # 0.3 10^3/uL (0.0-0.8); Eosinophils % 4.8 %; Hematocrit 35.5 % (37.0-47.0); Hemoglobin 11.8 g/dL (11.5-15.3); Lymphocytes # 1.3 10^3/uL (0.8-4.8); Lymphocytes % 22.6 %; Mean Corpuscular HGB Conc 33.2 g/dL (30.0-36.0); Mean Corpuscular Hemoglobin 29.9 pg (28.0-34.0); Mean Corpuscular Volume 90.1 fL (81-99); Mean Platelet Volume 9.1 fL (7.4-10.4); Monocytes # 0.6 10^3/uL (0.2-0.9); Monocytes % 10.8 %; Neutrophils # 3.57 10^3/uL (1.8-7.7); Neutrophils % 61.1 %; Nucleated Red Blood Cells % 0 %; Platelet Count 229 10^3/cmm (130-400); Red Blood Count 3.94 10^6/uL (4.1-5.3); Red Cell Distribution Width 12.5 % (12.1-15.1); White Blood Count 5.8 10^3/uL (4.0-10.0)
--- NOTE | 2020-09-07 09:37 | CT_ITS ---
WS: [id number] CT CHEST, ABDOMEN AND PELVIS WITH CONTRAST HISTORY: LUNG CANCER TECHNIQUE: Contiguous 5 mm axial imaging performed through the chest, abdomen and pelvis with IV cont rast, oral contrast has been provided. Coronal and sagittal reformats chest. Coronal and sagittal ref ormats through the abdomen and pelvis. All CT scans at [facility] use at least one of the se dose optimization techniques: automated exposure control; mA and/or kV adjustment per patient size (includes targeted exams where dose is matched to clinical indication); or iterative reconstruction. CONTRAST: Omnipaque 300; 95 mL IV. DLP: 1246.58 mGy.cm COMPARISON: 12/04/2019, 07/08/[address]: Soft tissue mass centered in the LEFT paratracheal and LEFT AP window has not significantly changed in size since 12/04/2019 and probably stable since 07/08/2019. This mass measures 4.7 x 2.3 cm and partially abuts the proximal LEFT subclavian artery and extends into the mediastinal fat adjacen t to the esophagus and aortic arch. No progression of this lesion. There are adjacent mild postinflam matory changes and bronchiectasis which is probably from prior radiation. No change since 10/22/2018 wi th a noncalcified 4 mm nodule at the lingula. No new or increasing mediastinal lymph nodes. Oral cont rast is present within the mid to distal esophagus from reflux disease. There is a small hiatal herni a. Small bilateral axillary lymph nodes. Mild atherosclerosis aorta. Heart size is normal with modera te coronary artery atherosclerosis. Abdomen CT: Normal size liver with no metastatic disease. Mild hepatic steatosis with sparing along t he falciform ligament. Spleen is normal. Gallbladder, pancreas and kidneys are unremarkable. Moderate atherosclerosis with no aneurysm in the aorta. No adenopathy within the abdomen. Moderate fecal retention throughout the GI track with no obstructive pattern. Pelvic CT: No free fluid or adenopathy in the pelvis. Uterus is present and anteverted. Prior LEFT hi p ORIF. Mild scoliosis thoracic and lumbar spines. No osteoblastic or osteolytic bone disease appreciated. CT/CT chest abd pel w con* IMPRESSION: 1. No interval change in the LEFT paratracheal and AP window residual soft tis preeti mass since 07/08/2019. 2. No new lymph nodes. 3. Long-term stability 4 mm noncalcified lingular nodule. 4. Gastroesophageal reflux to the mid esophagus. 5. No metastatic disease to the liver or adrenal glands. 6. No ascites.
[2020-09-07] MEDS: iohexol 300 mg/mL 50 mL Btl PO (09:57)
[2020-09-07 10:26] LABS: Alanine Aminotransferase 12 U/L (0-33); Albumin Level 4.2 g/dL (3.5-5.2); Alkaline Phosphatase 68 IU/L (35-105); Anion Gap 15.9 (5-19); Aspartate Amino Transferase 18 U/L (0-32); Blood Urea Nitrogen 16 mg/dL (6-20); Calcium 9.5 mg/dL (8.5-10.5); Carbon Dioxide 27 mmol/L (22-29); Chloride 104 mmol/L (98-107); Globulin 3.5 g/dL (1.3-4.6); Glucose 104 mg/dL (65-115); Osmolality Calculated 297 mOsm/kg (285-295); Potassium 3.9 mmol/L (3.5-5.1); Sodium 143 mmol/L (136-145); Total Bilirubin 0.3 mg/dL (0.15-1.2); Total Protein 7.7 g/dL (6.6-8.7)
[2020-09-07] MEDS: iohexol 300 mg/mL 100 mL Btl IV (11:07)
[2020-09-08 12:49] LABS: HEP C RNA Viral Load Quant 5.87 Log IU/mL (NOT DETECTED); HEP C RNA Viral Load Quant 734000 IU/mL (NOT DETECTED)
[2020-09-12 23:03] LABS: Hepatitis C Genotype RNA 3
== END 2020-09-07 08:35 | disposition home or self-care (01) ==
LOC: ONCMED 08:35
PROVIDERS: Internal Medicine; Nurse Practitioner; Visit Provider Internal Medicine Hematology & Oncology
DX: C34.82 Malignant neoplasm of overlapping sites of left bronchus and lung (principal); B18.2 Chronic viral hepatitis C
CPT/HCPCS: 36415; 71260; 74177; 80053; 82105; 85025; 87522; 87902; Q9967

== ENCOUNTER 2020-09-12 05:40 | Outpatient (CLI) | payer MEDICAID, SELFPAY ==
--- NOTE | 2020-09-12 16:24 | ONC FU_ITS ---
Dr. Morgan follow up note Patient: Tracy Melton Unit #: [id number]: [id number] Dicatated By: Ame Morgan M.D.Date of Visit:Sep 12, 2020 Onc Med Follow-up/Prog Note History of Present Illness: Mrs. Melton is a 50-year-old female who presented to [facility] with left femur fracture. CT scan of the left femur showed pathological fracture of mid to distal femoral shaft with findings highly worrisome for underlying malignancy/metastatic disease. A bone scan was done on 10/22/2018. It reported abnormal uptake involving mid left femur through femoral condyles. Photopenia defect in the femoral diaphysis at the site of pathological fracture. Consistent with malignancy. No additional abnormal uptake throughout the bony skeleton to suggest the metastatic disease. Subsequently, she underwent open reduction and internal fixation on 10/22/2018. An open biopsy was obtained and it came back negative for malignancy. For further workup, Ms Melton underwent CT scan of chest abdomen pelvis on 10/22/2018. The scans showed large lobulated left mediastinal mass measuring 7.5 x 5.7 x 6 cm. Centered in the left paratracheal and AP window. Suspicious for confluent lymphadenopathy. Partially encasing the left subclavian artery, aorta, left main pulmonary artery and left main stem bronchus; Subcentimeter right upper and lingular pulmonary nodules, indeterminate for metastatic disease; Hepatic hemangioma; No metastatic disease to liver or adrenal glands; No bony lesion seen. MRI head done on 11/19/2018 showed no evidence of metastatic disease Mrs Melton underwent bronchoscopy and mediastinoscopy on 10/29/2018 and a para-aortic mass obtained via mediastinoscopy shows non-small cell lung cancer, squamous cell type. 25 year history of smoking ,quit smoking on 08/21/2018, Mrs Melton was started on combined chemoradiation to The thorax on 11/13/2018 with weekly carboplatin and Taxol. Completed combined chemoradiation on 01/01/2019. She was referred to orthopedic oncology at [facility] for biopsy-proven negative or Inconclusive as it showed scant necrotic neoplasm or but radiologically suspicious left femur pathological fracture. She had had 20 pound weight loss within [address] PET scan done on 12/06/2018 showed hypermetabolic left mediastinal mass with SUV of 9.2 this is inseparable from mediastinum and demonstrates invasion. An 1.7 x 2.5 cm sub-aortic lymph node with a mild FDG activity. Left femur intramedullary kari is in place with only mild postsurgical inflammatory activity Patient underwent left femur biopsy on 12/08/2018 and As per patient pathology was inconclusive for metastatic disease but clinical impression is still in favor of metastatic disease and she has completed radiation therapy to her femur Molecular profiling on tumor came back negative Mrs Melton on chemotherapy with carboplatin/Taxol/Keytruda ???4 on 02/25/2019, after 4 cycles, with a plan of repeating CT PET scan. If it showed good response then consider maintenance therapy with Keytruda alone Because of related side effects, with second cycle and on, her Taxol dose was changed to day 1 and day 8 but continue with Keytruda/carboplatin every 3 weeks noted some fullness in her left arm but no pain. For which she underwent left upper extremity venous Doppler study on 03/19/2019 which showed partial DVT seen within subclavian vein near the jugular. All other vessels appear free of thrombosis. Patient was evaluated in emergency room and was started on Eliquis 10 mg by mouth twice a day for 7 days which is completed on 03/26/2019 therafter 5 mg twice a day as a maintenance. And her Port-A-Cath was still functional and needed to continue with chemotherapy and then for maintenance therapy with Keytruda. Because of progressive pancytopenia her consolidation therapy with with carboplatin/Taxol/Keytruda was discontinued after 2 cycles and follow-up CT PET scan done on 05/02/2019 showed the left Mediastinal mass was 0.8 x 2.3 cm with SUV of 2.3 consistent with complete response to therapy. Inflammatory infiltrates in the anterior left upper lobe water FDG negative. The subaortic lymph node is no longer identified. No evidence of distant metastatic disease. Switched to maintenance Keytruda 200 mg every 3 weeks up to 24 months on 05/05/2019. Left lower leg swelling, for which she underwent venous Doppler study on 07/17/2019 which reported no evidence of DVT in left lower extremty Follow-up CT PET scan done on 09/26/2019 showed new left upper lobe infiltrates, most suggestive of infection then recurrence. Probable reactive prevascular lymph node And other concern was radiation recall pneumonitis , so decided to hold immunotherapy and she was referred to pulmonology and she was evaluated on 10/27/2019 and his impression was finding consistent with radiation-induced changes. A new bronchodilator was added to her current medication regimen. Immunotherapy with Keytruda had been on hold since 09/15/2019, after reviewing CT scan of chest done on December 04, 2019, Keytruda was restarted on December 08, 2019 The follow-up CT scan of chest done on December 04, 2019 showed left paratracheal and AP window soft tissue mass appears to be slightly larger than previous exam, as mentioned in the impression back in description, it says 4.5 cm mass does not appear to shows any gross deformity or change when compared with previous exam. Done on July 08, 2019. Mediastinum is normal Case was discussed with Dr. De La Cruz radiologist and her impression was pneumonitis seen earlier is better, no significant change compared to previous scan and recommended follow-up CT PET scan in 3 months. She is tolerating maintenance therapy with Keytruda well otherwise. As far left leg pain is concerned patient has seen neurosurgery who recommended her physical therapy as with surgery chances of her improvement is 50-50,Patient preferred physical therapy complaining of skin rash involving back of her shoulders and upper back and arms, itching, denies changing any shampoo or soap, denies any taking new medication as per patient she tried steroids x2 without much help. Immunotherapy is on hold since after March 07, 2020 dose because of persistent skin rash ? immunotherapy related, Skin biopsy from right flank area, As per discussion with dermatologyOn May 30, 2020, patient has drug-induced skin rash Probably due to Keytruda CT PET scan done on April 30, 2020 shows new left upper lobe paramediastinal infiltrate is FDG positive, likely inflammatory and other new inflammatory appearing infiltrates are present in the medial right upper and superior segment of right lower lobe. The reactive prevascular mediastinal lymph node seen previously is now FDG negative. Peripheral left upper lobe infiltrate seen on prior studies generally improved on the current.Was referred to pulmonology to rule out immunotherapy related pneumonitis and She was evaluated on June 21, 2020 and impression was those infiltrates seen on CT PET scan will work secondary to radiation therapy and scarring, and airspace opacity, bronchiectasis in a linear pattern., As per discussion with pulmonology these changes are less likely secondary to immunotherapy. Follow-up CT scan of chest abdomen pelvis done on September 07, 2020 showed no interval change in the left paratracheal and AP window residual soft tissue mass since July 08, 2019 or scan done November 2019. No lymphadenopathy. Long-term stability 4 mm noncalcified lingular nodule, no metastatic disease to the liver or adrenal gland Came for follow-up, denies any specific complaints, no fever chills, no nausea or vomiting, no diarrhea constipation no hemoptysis or hematemesis, no new bony pains Medications: Abilify 0.5 Tablet (of 5 mg) Tablet Oral daily, Aspirin 1 (81 mg) Tablet Oral daily, HYDROcodone-Acetaminophen 1 Tablet (of 7.5-325 mg) Oral t.i.d. PRN, LORazepam 0.5 - 1 Tablet (of 1 mg) Oral t.i.d. PRN, Stiolto Respimat Aerosol, solution Inhalation, Wellbutrin XL 1 (300 mg) Tablet SR 24 HR Oral daily, Zoloft 1.5 Tablet (of 100 mg) Oral daily Allergies: Bactrim and Cipro. Review of Systems: Review of Systems is not available for this patient. Vital Signs: Performed on Sep 12, 2020 08:52 Height - 64.00 in Weight - 145.8 lbs (LOW) BSA - 1.71 sq.m BMI - 25.03 Temperature - 97.6 F (LOW) Pulse - 92 /min Respiration - 18 /min BP - 141/69 mm(hg) (HIGH) O2 Sat - 97 % Pain - 7 Fatigue - 6 Performance Status: 1 - No physically strenuous activity, but ambulatory and able to carry out light or sedentary work (e.g. office work, light house work). (ECOG) Physical Examination: ENMT - No mouth sores, no thrush, no jaundice, Respiratory - Lungs are clear to auscultation, Cardiovascular - Regular rate and rhythm of heart, Abdomen - Soft, bowel sounds present, Extremities - No visible edema. Lab/Imaging: Test performed on Jun 27, 2020 13:05 WBC 6.6 10 3/uL RBC 3.79 10 6/uL HGB 11.8 g/dL HCT 36.5 % MCV 96.3 fL MCH 31.1 pg MCHC 32.3 g/dL RDW 13.1 % Platelet Count 230 10 3/cmm MPV 8.7 fL Neutrophils 3.74 10 3/uL Lymphocytes 1.2 10 3/uL Monocytes 0.7 10 3/uL Eosinophils 0.9 10 3/uL Basophils 0.0 10 3/uL Neutrophil % 56.8 % Lymphocyte % 17.5 % Monocyte % 11.2 % Eosinophil % 13.1 % Basophils % 0.3 % NRBC % 0 % Test performed on May 27, 2020 11:12 Sodium 138 mmol/L TSH 1.37 uIU/mL Potassium 4.0 mmol/L Chloride 102 mmol/L CO2 28 mmol/L Anion Gap 12.0 BUN 16 mg/dL Creatinine 0.7 mg/dL Cr Clearance (Est) 103.5400 mL/min eGFR 87.9 mL/min Glucose 103 mg/dL Osmolality - Calculated 287 mOsm/kg Calcium 8.9 mg/dL Protein, Total 6.7 g/dL Albumin 4.0 g/dL Globulin 2.7 g/dL Bilirubin, Total 0.2 mg/dL ALT (SGPT) 13 U/L AST (SGOT) 17 U/L Alkaline Phosphatase 62 IU/L Impression: Squamous cell carcinoma involving left paratracheal area for mediastinoscopy done on 10/29/2018 CT scan of chest abdomen pelvis done on 10/22/2018 showed large lobulated left mediastinal mass measuring 7.5 x 5.7 x 6 cm. Centered in the left paratracheal and AP window. Suspicious for confluent adenopathy. Partially encasing the left subclavian artery, aorta, left main pulmonary artery and left main stem bronchus. Subcentimeter right upper and lingular pulmonary nodules, indeterminate for metastatic disease No metastatic disease to the liver or adrenal glands No bone metastases. MRI head done on 11/19/2018 showed no evidence of metastatic disease As per radiation oncology patient still awaiting approval from Medicaid for CT PET scan History of smoking for 25 years, quit smoking on 10/21/2018. Bone scan done on 10/22/2018 showed abnormal uptake involving left mid femur through the femoral condyles. Photopenia defect in the femoral diaphysis at the site of pathological fracture consistent with malignancy. No additional bone metastases seen. CT PET scan done on 12/06/2018 shows hypermetabolic left paraMediastinal mass with SUV of 9.2 and is inseparable from the mediastinum and demonstrates invasion. A cystic 1.7 x 2.5 cm subaortic node demonstrates mild FDG activity. And left femur intramedullary kari is in place, with only mild postsurgical inflammatory activity. History of left femur fracture due to fall, status post open reduction and internal fixation done on 10/22/2018, open biopsy was negative for metastatic disease Now being referred to orthopedic oncology at [facility] for second opinion Left femur biopsy was done on 12/08/2018. Started on combined chemoradiation to the chest wall with weekly carboplatin Taxol on 11/13/2018. Per Geronimo, radiation therapy to left femur was also added on 11/24/2018.She compared to combined chemoradiation to her chest on 01/01/2019 and also received radiation to her left femur for metastatic disease but biopsy was inconclusive Started on consolidation therapy with Keytruda/Taxol/carboplatin ???3 on 02/26/2019 Consolidation therapy was discontinued after two cycles because of progressive pancytopenia and more severe thrombocytopenia. On 03/26/2019 and follow-up CT PET scan done on 05/02/2019 showed excellent response to therapy and she was switched to maintenance therapy with Keytruda alone 200 mg every 3 weeks up to 24 months as long as tolerating and there is a no evidence of disease progression. She began her first dose of single agent pembrolizumab on 05/21/2019. She is on a 3-week cycle. Because of progressive maculopapular skin rash involving torso and arms, Keytruda was put on hold and last dose was given on March 07, 2020 Skin biopsy was done in the first week of May 2020 from right flank showed findings consistent with drug-induced skin toxicity, Keytruda was discontinued after March 07, 2020 dose because of related side effects and toxicity e.g. dermal toxicity and there was a concern about pulmonary toxicity but pulmonology evaluation confirmed bilateral infiltrates seen on CT PET scan were most likely due to radiation-induced pneumonitis or chronic pulmonary changes not due to drug-related Follow-up CT PET scan done on April 30, 2020 showed no evidence of recurrence of disease but new left upper lobe paramediastinal infiltrate is FDG positive, likely inflammatory. Other new inflammatory appearing infiltrates are present in the medial right upper and superior segment of right lower lobe. The reactive prevascular mediastinal lymph node seen previously is now FDG negative As per pulmonology evaluation, these infiltrates are most likely due to radiation-induced pneumonitis or chronic pulmonary changes not drug-related Plan: disCussed with patient regarding her labs white blood count 5.8 hemoglobin 11.8 hematocrit 35.5 platelets 229,000 CMP within normal limits and CT scan of chest, abdomen and pelvis showed no evidence of recurrence of disease but persistent left paratracheal and AP window residual soft tissue which is stable when compared with CT PET scan done in June 2020 and previous scans. As, her follow-up CT scan showed no evidence of disease progression, patient is feeling much better since her immunotherapy is off,, she will prefer observation alone at this point as her quality of life is improving in that case we will see her back in 3 months with CBC CMP and CT scan of chest in the meantime we will continue monthly port maintenance Signed By: Ame Morgan M.D. <<Signature on File>>
== END 2020-09-12 05:41 | disposition home or self-care (01) ==
LOC: ONCMED 05:43
PROVIDERS: Visit Provider Internal Medicine Hematology & Oncology
DX: C34.82 Malignant neoplasm of overlapping sites of left bronchus and lung (principal); Z87.891 Personal history of nicotine dependence; Z86.718 Personal history of other venous thrombosis and embolism; Z92.21 Personal history of antineoplastic chemotherapy; Z92.22 Personal history of monoclonal drug therapy
CPT/HCPCS: 96523; 99214

== ENCOUNTER → 2020-09-27 12:19 | Outpatient (BNVA) | payer MEDICAID, SELFPAY | PROVIDERS: Visit Provider Internal Medicine | DX: Z01.812 Encounter for preprocedural laboratory examination (principal); Z12.11 Encounter for screening for malignant neoplasm of colon | CPT/HCPCS: 87635 ==

== ENCOUNTER 2020-10-10 14:03 | Outpatient (CLI) | payer MEDICAID, SELFPAY | END 2020-10-10 14:04 | disposition home or self-care (01) | LOC: ONCMED 14:07 | PROVIDERS: Visit Provider Nurse Practitioner | DX: Z45.2 Encounter for adjustment and management of vascular access device (principal) | CPT/HCPCS: 96523 ==

== ENCOUNTER → 2020-10-19 08:18 | Outpatient (BNVA) | payer MEDICAID, SELFPAY | PROVIDERS: Visit Provider Nurse Practitioner | DX: F43.12 Post-traumatic stress disorder, chronic (principal) | CPT/HCPCS: 99214 ==

== ENCOUNTER 2020-11-07 14:00 | Outpatient (CLI) | payer MEDICAID, SELFPAY | END 2020-11-07 14:01 | disposition home or self-care (01) | LOC: ONCMED 14:03 | PROVIDERS: Visit Provider Nurse Practitioner | DX: Z45.2 Encounter for adjustment and management of vascular access device (principal) | CPT/HCPCS: 96523 ==

== ENCOUNTER 2020-12-27 10:36 | Outpatient (CLI) | payer MEDICAID, SELFPAY ==
--- NOTE | 2020-12-27 10:46 | CT_ITS ---
WS: [id number] CT CHEST WITH INTRAVENOUS CONTRAST HISTORY: LUNG CANCER TECHNIQUE: Contiguous 5 mm axial imaging performed on the thorax. Coronal and sagittal reformats are submitted. All CT scans at [facility] use at least one of these dose optimization techniq ues: automated exposure control; mA and/or kV adjustment per patient size (includes targeted exams wh ere dose is matched to clinical indication); or iterative reconstruction. CONTRAST: Omnipaque 300; 95 mL IV. DLP: 584.79 mGycm COMPARISON: 09/07/2020 Lungs and central airway: Soft tissue abutting the mediastinum along the upper medial LEFT lung measu res 4.4 x 2.1 cm and is unchanged since the prior examination. Borders suggests this may be post radi ation change. The soft tissue mass partially abuts the LEFT subclavian artery and a portion of the ao rtic arch. No increase in size since the prior study. 5 mm noncalcified lingular nodule appears very similar to the study of 12/04/2019. No increase in size. No new pulmonary nodules. Pleura: Normal. No pleural effusion. Heart and pericardium: Normal size heart with no pericardial effusion. Mediastinum and anibal: No new lymph nodes identified. No change in the LEFT paratracheal soft tissue m ass. Vessels: Atherosclerosis aorta. Normal size pulmonary artery. Chest wall and lower neck: LEFT subclavian Port-A-Cath. Upper abdomen: Hepatic steatosis along the falciform ligament. No adrenal mass. Osseous structures: No destructive process. CT/CT chest w con* [id number] IMPRESSION: 1. 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 2. Stable 5 mm nodule in the lingula since 12/04/2019. 3. No new mediastinal lymph nodes.
[2020-12-27] MEDS: iohexol 300 mg/mL 100 mL Btl IV (11:07)
== END 2020-12-27 10:37 | disposition home or self-care (01) ==
PROVIDERS: Visit Provider Internal Medicine Hematology & Oncology
DX: C34.82 Malignant neoplasm of overlapping sites of left bronchus and lung (principal); R91.1 Solitary pulmonary nodule
CPT/HCPCS: 71260; Q9967

== ENCOUNTER 2021-01-03 11:57 | Outpatient (CLI) | payer MEDICAID, SELFPAY ==
[2021-01-03 12:39] LABS: Basophils % 0.4 %; Eosinophils # 0.2 10^3/uL (0.0-0.8); Eosinophils % 3.8 %; Hematocrit 32.3 % (37.0-47.0); Hemoglobin 10.6 g/dL (11.5-15.3); Lymphocytes # 1.4 10^3/uL (0.8-4.8); Lymphocytes % 25.9 %; Mean Corpuscular HGB Conc 32.8 g/dL (30.0-36.0); Mean Corpuscular Hemoglobin 30.4 pg (28.0-34.0); Mean Corpuscular Volume 92.6 fL (81-99); Mean Platelet Volume 8.8 fL (7.4-10.4); Monocytes # 0.5 10^3/uL (0.2-0.9); Monocytes % 9.8 %; Neutrophils # 3.15 10^3/uL (1.8-7.7); Neutrophils % 59.7 %; Nucleated Red Blood Cells % 0 %; Platelet Count 256 10^3/cmm (130-400); Red Blood Count 3.49 10^6/uL (4.1-5.3); Red Cell Distribution Width 12.9 % (12.1-15.1); White Blood Count 5.3 10^3/uL (4.0-10.0)
[2021-01-03 13:07] LABS: Alanine Aminotransferase 11 U/L (0-33); Albumin Level 3.8 g/dL (3.5-5.2); Alkaline Phosphatase 64 IU/L (35-105); Anion Gap 13.7 (5-19); Aspartate Amino Transferase 14 U/L (0-32); Blood Urea Nitrogen 14 mg/dL (6-20); Calcium 8.6 mg/dL (8.5-10.5); Carbon Dioxide 28 mmol/L (22-29); Chloride 104 mmol/L (98-107); Globulin 2.9 g/dL (1.3-4.6); Glucose 105 mg/dL (65-115); Osmolality Calculated 295 mOsm/kg (285-295); Potassium 3.7 mmol/L (3.5-5.1); Sodium 142 mmol/L (136-145); Total Bilirubin 0.2 mg/dL (0.15-1.2); Total Protein 6.7 g/dL (6.6-8.7)
[2021-01-03 17:12] LABS: Ferritin 160 ng/mL (15-150); Iron 48 ug/dL (37-145); Percent Saturation 17.9 % (20-50); Total Iron Binding Capacity 268 mcg/dl; Unsaturated Iron Binding 220 ug/dL (112-347); Vitamin B12 383 pg/mL (232-1245)
--- NOTE | 2021-01-03 17:19 | ONC FU_ITS ---
Dr. Morgan follow up note Patient: Tracy Melton Unit #: [id number]: [id number] Dicatated By: Ame Morgan M.D.Date of Visit:Jan 03, 2021 Onc Med Follow-up/Prog Note History of Present Illness: Mrs. Melton is a 50-year-old female who presented to [facility] with left femur fracture. CT scan of the left femur showed pathological fracture of mid to distal femoral shaft with findings highly worrisome for underlying malignancy/metastatic disease. A bone scan was done on 10/22/2018. It reported abnormal uptake involving mid left femur through femoral condyles. Photopenia defect in the femoral diaphysis at the site of pathological fracture. Consistent with malignancy. No additional abnormal uptake throughout the bony skeleton to suggest the metastatic disease. Subsequently, she underwent open reduction and internal fixation on 10/22/2018. An open biopsy was obtained and it came back negative for malignancy. For further workup, Ms Melton underwent CT scan of chest abdomen pelvis on 10/22/2018. The scans showed large lobulated left mediastinal mass measuring 7.5 x 5.7 x 6 cm. Centered in the left paratracheal and AP window. Suspicious for confluent lymphadenopathy. Partially encasing the left subclavian artery, aorta, left main pulmonary artery and left main stem bronchus; Subcentimeter right upper and lingular pulmonary nodules, indeterminate for metastatic disease; Hepatic hemangioma; No metastatic disease to liver or adrenal glands; No bony lesion seen. MRI head done on 11/19/2018 showed no evidence of metastatic disease Mrs Melton underwent bronchoscopy and mediastinoscopy on 10/29/2018 and a para-aortic mass obtained via mediastinoscopy shows non-small cell lung cancer, squamous cell type. 25 year history of smoking ,quit smoking on 08/21/2018, Mrs Melton was started on combined chemoradiation to The thorax on 11/13/2018 with weekly carboplatin and Taxol. Completed combined chemoradiation on 01/01/2019. She was referred to orthopedic oncology at [facility] for biopsy-proven negative or Inconclusive as it showed scant necrotic neoplasm or but radiologically suspicious left femur pathological fracture. She had had 20 pound weight loss within [address] PET scan done on 12/06/2018 showed hypermetabolic left mediastinal mass with SUV of 9.2 this is inseparable from mediastinum and demonstrates invasion. An 1.7 x 2.5 cm sub-aortic lymph node with a mild FDG activity. Left femur intramedullary kari is in place with only mild postsurgical inflammatory activity Patient underwent left femur biopsy on 12/08/2018 and As per patient pathology was inconclusive for metastatic disease but clinical impression is still in favor of metastatic disease and she has completed radiation therapy to her femur Molecular profiling on tumor came back negative Mrs Melton on chemotherapy with carboplatin/Taxol/Keytruda ???4 on 02/25/2019, after 4 cycles, with a plan of repeating CT PET scan. If it showed good response then consider maintenance therapy with Keytruda alone Because of related side effects, with second cycle and on, her Taxol dose was changed to day 1 and day 8 but continue with Keytruda/carboplatin every 3 weeks noted some fullness in her left arm but no pain. For which she underwent left upper extremity venous Doppler study on 03/19/2019 which showed partial DVT seen within subclavian vein near the jugular. All other vessels appear free of thrombosis. Patient was evaluated in emergency room and was started on Eliquis 10 mg by mouth twice a day for 7 days which is completed on 03/26/2019 therafter 5 mg twice a day as a maintenance. And her Port-A-Cath was still functional and needed to continue with chemotherapy and then for maintenance therapy with Keytruda. Because of progressive pancytopenia her consolidation therapy with with carboplatin/Taxol/Keytruda was discontinued after 2 cycles and follow-up CT PET scan done on 05/02/2019 showed the left Mediastinal mass was 0.8 x 2.3 cm with SUV of 2.3 consistent with complete response to therapy. Inflammatory infiltrates in the anterior left upper lobe water FDG negative. The subaortic lymph node is no longer identified. No evidence of distant metastatic disease. Switched to maintenance Keytruda 200 mg every 3 weeks up to 24 months on 05/05/2019. Left lower leg swelling, for which she underwent venous Doppler study on 07/17/2019 which reported no evidence of DVT in left lower extremty Follow-up CT PET scan done on 09/26/2019 showed new left upper lobe infiltrates, most suggestive of infection then recurrence. Probable reactive prevascular lymph node And other concern was radiation recall pneumonitis , so decided to hold immunotherapy and she was referred to pulmonology and she was evaluated on 10/27/2019 and his impression was finding consistent with radiation-induced changes. A new bronchodilator was added to her current medication regimen. Immunotherapy with Keytruda had been on hold since 09/15/2019, after reviewing CT scan of chest done on December 04, 2019, Keytruda was restarted on December 08, 2019 The follow-up CT scan of chest done on December 04, 2019 showed left paratracheal and AP window soft tissue mass appears to be slightly larger than previous exam, as mentioned in the impression back in description, it says 4.5 cm mass does not appear to shows any gross deformity or change when compared with previous exam. Done on July 08, 2019. Mediastinum is normal Case was discussed with Dr. De La Cruz radiologist and her impression was pneumonitis seen earlier is better, no significant change compared to previous scan and recommended follow-up CT PET scan in 3 months. She is tolerating maintenance therapy with Keytruda well otherwise. As far left leg pain is concerned patient has seen neurosurgery who recommended her physical therapy as with surgery chances of her improvement is 50-50,Patient preferred physical therapy complaining of skin rash involving back of her shoulders and upper back and arms, itching, denies changing any shampoo or soap, denies any taking new medication as per patient she tried steroids x2 without much help. Immunotherapy is on hold since after March 07, 2020 dose because of persistent skin rash ? immunotherapy related, Skin biopsy from right flank area, As per discussion with dermatologyOn May 30, 2020, patient has drug-induced skin rash Probably due to Keytruda CT PET scan done on April 30, 2020 shows new left upper lobe paramediastinal infiltrate is FDG positive, likely inflammatory and other new inflammatory appearing infiltrates are present in the medial right upper and superior segment of right lower lobe. The reactive prevascular mediastinal lymph node seen previously is now FDG negative. Peripheral left upper lobe infiltrate seen on prior studies generally improved on the current.Was referred to pulmonology to rule out immunotherapy related pneumonitis and She was evaluated on June 21, 2020 and impression was those infiltrates seen on CT PET scan will work secondary to radiation therapy and scarring, and airspace opacity, bronchiectasis in a linear pattern., As per discussion with pulmonology these changes are less likely secondary to immunotherapy. Follow-up CT scan of chest abdomen pelvis done on September 07, 2020 showed no interval change in the left paratracheal and AP window residual soft tissue mass since July 08, 2019 or scan done November 2019. No lymphadenopathy. Long-term stability 4 mm noncalcified lingular nodule, no metastatic disease to the liver or adrenal gland Follow-up CT scan of chest done on December 27, 2020 shows no increase in size of left paratracheal and medial left upper lobe soft tissue mass which is probably due to postradiation fibrosis. Stable 5 mm nodule in the lingula since November 2019. No new mediastinal lymphadenopathy Came for follow-up, denies any specific complaints, no fever chills, no nausea or vomiting, no diarrhea or constipation, no hemoptysis or hematemesis, no blurred vision no double vision, no new bony pains, chronic bony pain is under control with current pain medication Medications: Abilify 0.5 Tablet (of 5 mg) Tablet Oral daily, Aspirin 1 (81 mg) Tablet Oral daily, HYDROcodone-Acetaminophen 1 Tablet (of 7.5-325 mg) Oral t.i.d. PRN, LORazepam 0.5 - 1 Tablet (of 1 mg) Oral t.i.d. PRN, Stiolto Respimat Aerosol, solution Inhalation, Wellbutrin XL 1 (300 mg) Tablet SR 24 HR Oral daily, Zoloft 1.5 Tablet (of 100 mg) Oral daily Allergies: Bactrim and Cipro. Review of Systems: Review of Systems is not available for this patient. Vital Signs: Performed on Jan 03, 2021 14:40 Height - 64.00 in Weight - 139.6 lbs (LOW) BSA - 1.68 sq.m BMI - 23.96 Temperature - 96.8 F (LOW) Pulse - 89 /min Respiration - 18 /min BP - 143/73 mm(hg) (HIGH) O2 Sat - 98 % Pain - 3 Fatigue - 7 Performance Status: 0 - Fully active, able to carry on all predisease activities without restrictions. (ECOG) Physical Examination: ENMT - No mouth sores, no thrush, no jaundice, Respiratory - Lungs are clear to auscultation, Cardiovascular - Regular rate and rhythm of heart, Abdomen - Soft, bowel sounds present, Extremities - No visible edema. Lab/Imaging: Most recent lab results are not available for this patient. Impression: Squamous cell carcinoma involving left paratracheal area for mediastinoscopy done on 10/29/2018 CT scan of chest abdomen pelvis done on 10/22/2018 showed large lobulated left mediastinal mass measuring 7.5 x 5.7 x 6 cm. Centered in the left paratracheal and AP window. Suspicious for confluent adenopathy. Partially encasing the left subclavian artery, aorta, left main pulmonary artery and left main stem bronchus. Subcentimeter right upper and lingular pulmonary nodules, indeterminate for metastatic disease No metastatic disease to the liver or adrenal glands No bone metastases. MRI head done on 11/19/2018 showed no evidence of metastatic disease As per radiation oncology patient still awaiting approval from Medicaid for CT PET scan History of smoking for 25 years, quit smoking on 10/21/2018. Bone scan done on 10/22/2018 showed abnormal uptake involving left mid femur through the femoral condyles. Photopenia defect in the femoral diaphysis at the site of pathological fracture consistent with malignancy. No additional bone metastases seen. CT PET scan done on 12/06/2018 shows hypermetabolic left paraMediastinal mass with SUV of 9.2 and is inseparable from the mediastinum and demonstrates invasion. A cystic 1.7 x 2.5 cm subaortic node demonstrates mild FDG activity. And left femur intramedullary kari is in place, with only mild postsurgical inflammatory activity. History of left femur fracture due to fall, status post open reduction and internal fixation done on 10/22/2018, open biopsy was negative for metastatic disease Now being referred to orthopedic oncology at [facility] for second opinion Left femur biopsy was done on 12/08/2018. Started on combined chemoradiation to the chest wall with weekly carboplatin Taxol on 11/13/2018. Per Ms Melton, radiation therapy to left femur was also added on 11/24/2018.She compared to combined chemoradiation to her chest on 01/01/2019 and also received radiation to her left femur for metastatic disease but biopsy was inconclusive Started on consolidation therapy with Keytruda/Taxol/carboplatin ???3 on 02/26/2019 Consolidation therapy was discontinued after two cycles because of progressive pancytopenia and more severe thrombocytopenia. On 03/26/2019 and follow-up CT PET scan done on 05/02/2019 showed excellent response to therapy and she was switched to maintenance therapy with Keytruda alone 200 mg every 3 weeks up to 24 months as long as tolerating and there is a no evidence of disease progression. She began her first dose of single agent pembrolizumab on 05/21/2019. She is on a 3-week cycle. Because of progressive maculopapular skin rash involving torso and arms, Keytruda was put on hold and last dose was given on March 07, 2020 Skin biopsy was done in the first week of May 2020 from right flank showed findings consistent with drug-induced skin toxicity, Keytruda was discontinued after March 07, 2020 dose because of related side effects and toxicity e.g. dermal toxicity and there was a concern about pulmonary toxicity but pulmonology evaluation confirmed bilateral infiltrates seen on CT PET scan were most likely due to radiation-induced pneumonitis or chronic pulmonary changes not due to drug-related Follow-up CT PET scan done on April 30, 2020 showed no evidence of recurrence of disease but new left upper lobe paramediastinal infiltrate is FDG positive, likely inflammatory. Other new inflammatory appearing infiltrates are present in the medial right upper and superior segment of right lower lobe. The reactive prevascular mediastinal lymph node seen previously is now FDG negative As per pulmonology evaluation, these infiltrates are most likely due to radiation-induced pneumonitis or chronic pulmonary changes not drug-related Follow-up CT scan of the chest done on December 27, 2020 showed no increase in size of left paratracheal and medial left upper lobe soft tissue mass which is probably due to post radiation fibrosis. Stable 5 mm nodule in the lingula since December 04, 2019. No new mediastinal lymphadenopathy Plan: Discussed with patient regarding her labs white blood count 5.3 hemoglobin 10.6 g compared to 11.8 g on September 07, 2020 hematocrit 32.3 platelets 256,000 CMP within normal limits and follow-up CT scan of chest findings which shows no evidence of recurrence of disease Clinically, patient is doing well with no new signs symptom suggestive of disease recurrence or progression her follow-up CT scan of the chest confirmed no evidence of recurrence and her lab work shows progressive anemia otherwise unremarkable, at this point will consider anemia work-up with iron studies B12 folic acid, reticulocyte count and then she will return to clinic in 1 month with CBC if it shows progressive anemia and anemia work-up remains inconclusive, may consider bone marrow evaluation. Signed By: Ame Morgan M.D. <<Signature on File>>
== END 2021-01-03 11:58 | disposition home or self-care (01) ==
LOC: ONCMED 11:59
PROVIDERS: Visit Provider Internal Medicine Hematology & Oncology
DX: C34.82 Malignant neoplasm of overlapping sites of left bronchus and lung (principal); Z87.891 Personal history of nicotine dependence; D64.9 Anemia, unspecified
CPT/HCPCS: 36591; 80053; 82607; 82728; 83540; 83550; 85025; 99214

== ENCOUNTER 2021-02-07 13:57 | Outpatient (CLI) | payer MEDICAID, SELFPAY ==
[2021-02-07 14:47] LABS: Basophils % 0.3 %; Eosinophils # 0.2 10^3/uL (0.0-0.8); Eosinophils % 3.5 %; Hemoglobin 10.1 g/dL (11.5-15.3); Lymphocytes # 1.3 10^3/uL (0.8-4.8); Lymphocytes % 22.8 %; Mean Corpuscular HGB Conc 32.6 g/dL (30.0-36.0); Mean Corpuscular Hemoglobin 30.3 pg (28.0-34.0); Mean Corpuscular Volume 93.1 fl (81-99); Mean Platelet Volume 9.1 fL (7.4-10.4); Monocytes # 0.6 10^3/uL (0.2-0.9); Monocytes % 9.9 %; Neutrophils # 3.62 10^3/uL (1.8-7.7); Neutrophils % 63.2 %; Nucleated Red Blood Cells % 0 %; Platelet Count 278 10^3/cmm (130-400); Red Blood Count 3.33 10^6/uL (4.1-5.3); Red Cell Distribution Width 13.2 % (12.1-15.1); White Blood Count 5.7 10^3/uL (4.0-10.0)
--- NOTE | 2021-02-07 16:28 | ONC FU_ITS ---
Dr. Morgan follow up note Patient: Tracy Melton Unit #: [id number]: 1970 Dicatated By: Ame Morgan M.D.Date of Visit:Feb 07, 2021 Onc Med Follow-up/Prog Note History of Present Illness: Mrs. Melton is a 51-year-old female who presented to [facility] with left femur fracture. CT scan of the left femur showed pathological fracture of mid to distal femoral shaft with findings highly worrisome for underlying malignancy/metastatic disease. A bone scan was done on 10/22/2018. It reported abnormal uptake involving mid left femur through femoral condyles. Photopenia defect in the femoral diaphysis at the site of pathological fracture. Consistent with malignancy. No additional abnormal uptake throughout the bony skeleton to suggest the metastatic disease. Subsequently, she underwent open reduction and internal fixation on 10/22/2018. An open biopsy was obtained and it came back negative for malignancy. For further workup, Ms Melton underwent CT scan of chest abdomen pelvis on 10/22/2018. The scans showed large lobulated left mediastinal mass measuring 7.5 x 5.7 x 6 cm. Centered in the left paratracheal and AP window. Suspicious for confluent lymphadenopathy. Partially encasing the left subclavian artery, aorta, left main pulmonary artery and left main stem bronchus; Subcentimeter right upper and lingular pulmonary nodules, indeterminate for metastatic disease; Hepatic hemangioma; No metastatic disease to liver or adrenal glands; No bony lesion seen. MRI head done on 11/19/2018 showed no evidence of metastatic disease Mrs Melton underwent bronchoscopy and mediastinoscopy on 10/29/2018 and a para-aortic mass obtained via mediastinoscopy shows non-small cell lung cancer, squamous cell type. 25 year history of smoking ,quit smoking on 08/21/2018, Mrs Melton was started on combined chemoradiation to The thorax on 11/13/2018 with weekly carboplatin and Taxol. Completed combined chemoradiation on 01/01/2019. She was referred to orthopedic oncology at [facility] for biopsy-proven negative or Inconclusive as it showed scant necrotic neoplasm or but radiologically suspicious left femur pathological fracture. She had had 20 pound weight loss within [address] PET scan done on 12/06/2018 showed hypermetabolic left mediastinal mass with SUV of 9.2 this is inseparable from mediastinum and demonstrates invasion. An 1.7 x 2.5 cm sub-aortic lymph node with a mild FDG activity. Left femur intramedullary kari is in place with only mild postsurgical inflammatory activity Patient underwent left femur biopsy on 12/08/2018 and As per patient pathology was inconclusive for metastatic disease but clinical impression is still in favor of metastatic disease and she has completed radiation therapy to her femur Molecular profiling on tumor came back negative Mrs Melton on chemotherapy with carboplatin/Taxol/Keytruda ???4 on 02/25/2019, after 4 cycles, with a plan of repeating CT PET scan. If it showed good response then consider maintenance therapy with Keytruda alone Because of related side effects, with second cycle and on, her Taxol dose was changed to day 1 and day 8 but continue with Keytruda/carboplatin every 3 weeks noted some fullness in her left arm but no pain. For which she underwent left upper extremity venous Doppler study on 03/19/2019 which showed partial DVT seen within subclavian vein near the jugular. All other vessels appear free of thrombosis. Patient was evaluated in emergency room and was started on Eliquis 10 mg by mouth twice a day for 7 days which is completed on 03/26/2019 therafter 5 mg twice a day as a maintenance. And her Port-A-Cath was still functional and needed to continue with chemotherapy and then for maintenance therapy with Keytruda. Because of progressive pancytopenia her consolidation therapy with with carboplatin/Taxol/Keytruda was discontinued after 2 cycles and follow-up CT PET scan done on 05/02/2019 showed the left Mediastinal mass was 0.8 x 2.3 cm with SUV of 2.3 consistent with complete response to therapy. Inflammatory infiltrates in the anterior left upper lobe water FDG negative. The subaortic lymph node is no longer identified. No evidence of distant metastatic disease. Switched to maintenance Keytruda 200 mg every 3 weeks up to 24 months on 05/05/2019. Left lower leg swelling, for which she underwent venous Doppler study on 07/17/2019 which reported no evidence of DVT in left lower extremty Follow-up CT PET scan done on 09/26/2019 showed new left upper lobe infiltrates, most suggestive of infection then recurrence. Probable reactive prevascular lymph node And other concern was radiation recall pneumonitis , so decided to hold immunotherapy and she was referred to pulmonology and she was evaluated on 10/27/2019 and his impression was finding consistent with radiation-induced changes. A new bronchodilator was added to her current medication regimen. Immunotherapy with Keytruda had been on hold since 09/15/2019, after reviewing CT scan of chest done on December 04, 2019, Keytruda was restarted on December 08, 2019 The follow-up CT scan of chest done on December 04, 2019 showed left paratracheal and AP window soft tissue mass appears to be slightly larger than previous exam, as mentioned in the impression back in description, it says 4.5 cm mass does not appear to shows any gross deformity or change when compared with previous exam. Done on July 08, 2019. Mediastinum is normal Case was discussed with Dr. De La Cruz radiologist and her impression was pneumonitis seen earlier is better, no significant change compared to previous scan and recommended follow-up CT PET scan in 3 months. She is tolerating maintenance therapy with Keytruda well otherwise. As far left leg pain is concerned patient has seen neurosurgery who recommended her physical therapy as with surgery chances of her improvement is 50-50,Patient preferred physical therapy complaining of skin rash involving back of her shoulders and upper back and arms, itching, denies changing any shampoo or soap, denies any taking new medication as per patient she tried steroids x2 without much help. Immunotherapy is on hold since after March 07, 2020 dose because of persistent skin rash ? immunotherapy related, Skin biopsy from right flank area, As per discussion with dermatologyOn May 30, 2020, patient has drug-induced skin rash Probably due to Keytruda CT PET scan done on April 30, 2020 shows new left upper lobe paramediastinal infiltrate is FDG positive, likely inflammatory and other new inflammatory appearing infiltrates are present in the medial right upper and superior segment of right lower lobe. The reactive prevascular mediastinal lymph node seen previously is now FDG negative. Peripheral left upper lobe infiltrate seen on prior studies generally improved on the current.Was referred to pulmonology to rule out immunotherapy related pneumonitis and She was evaluated on June 21, 2020 and impression was those infiltrates seen on CT PET scan will work secondary to radiation therapy and scarring, and airspace opacity, bronchiectasis in a linear pattern., As per discussion with pulmonology these changes are less likely secondary to immunotherapy. Follow-up CT scan of chest abdomen pelvis done on September 07, 2020 showed no interval change in the left paratracheal and AP window residual soft tissue mass since July 08, 2019 or scan done November 2019. No lymphadenopathy. Long-term stability 4 mm noncalcified lingular nodule, no metastatic disease to the liver or adrenal gland Follow-up CT scan of chest done on December 27, 2020 shows no increase in size of left paratracheal and medial left upper lobe soft tissue mass which is probably due to postradiation fibrosis. Stable 5 mm nodule in the lingula since November 2019. No new mediastinal lymphadenopathy Came for follow-up, complaining of generalized weakness and fatigue but no nausea or vomiting no diarrhea constipation, no melena or hematochezia, no hemoptysis or hematemesis, no jaundice, patient says she is going through some emotional issues as her boyfriend was cheating on her and some other family issues. As per patient her PMD Dr. Wyatt in the past recommended EGD and colonoscopy but patient declined. Medications: Abilify 0.5 Tablet (of 5 mg) Tablet Oral daily, Aspirin 1 (81 mg) Tablet Oral daily, HYDROcodone-Acetaminophen 1 Tablet (of 7.5-325 mg) Oral t.i.d. PRN, LORazepam 0.5 - 1 Tablet (of 1 mg) Oral t.i.d. PRN, Stiolto Respimat Aerosol, solution Inhalation, Wellbutrin XL 1 (300 mg) Tablet SR 24 HR Oral daily, Zoloft 1.5 Tablet (of 100 mg) Oral daily Allergies: Bactrim and Cipro. Review of Systems: Review of Systems is not available for this patient. Vital Signs: Performed on Feb 07, 2021 15:46 Height - 64.00 in Weight - 127.8 lbs (LOW) BSA - 1.62 sq.m BMI - 21.94 Temperature - 98.4 F Pulse - 108 /min (HIGH) Respiration - 18 /min BP - 134/65 mm(hg) O2 Sat - 95 % (LOW) Pain - 4 Fatigue - 5 Performance Status: 0 - Fully active, able to carry on all predisease activities without restrictions. (ECOG) Physical Examination: ENMT - No mouth sores, no thrush, no jaundice no cervical lymphadenopathy, Respiratory - Lungs are clear to auscultation, Cardiovascular - Regular rate and rhythm of heart , Abdomen - Soft, bowel sounds present, Extremities - No visible edema. Lab/Imaging: Most recent lab results are not available for this patient. Impression: Squamous cell carcinoma involving left paratracheal area for mediastinoscopy done on 10/29/2018 CT scan of chest abdomen pelvis done on 10/22/2018 showed large lobulated left mediastinal mass measuring 7.5 x 5.7 x 6 cm. Centered in the left paratracheal and AP window. Suspicious for confluent adenopathy. Partially encasing the left subclavian artery, aorta, left main pulmonary artery and left main stem bronchus. Subcentimeter right upper and lingular pulmonary nodules, indeterminate for metastatic disease No metastatic disease to the liver or adrenal glands No bone metastases. MRI head done on 11/19/2018 showed no evidence of metastatic disease As per radiation oncology patient still awaiting approval from Medicaid for CT PET scan History of smoking for 25 years, quit smoking on 10/21/2018. Bone scan done on 10/22/2018 showed abnormal uptake involving left mid femur through the femoral condyles. Photopenia defect in the femoral diaphysis at the site of pathological fracture consistent with malignancy. No additional bone metastases seen. CT PET scan done on 12/06/2018 shows hypermetabolic left paraMediastinal mass with SUV of 9.2 and is inseparable from the mediastinum and demonstrates invasion. A cystic 1.7 x 2.5 cm subaortic node demonstrates mild FDG activity. And left femur intramedullary kari is in place, with only mild postsurgical inflammatory activity. History of left femur fracture due to fall, status post open reduction and internal fixation done on 10/22/2018, open biopsy was negative for metastatic disease Now being referred to orthopedic oncology at [facility] for second opinion Left femur biopsy was done on 12/08/2018. Started on combined chemoradiation to the chest wall with weekly carboplatin Taxol on 11/13/2018. Per Ms Geronimo, radiation therapy to left femur was also added on 11/24/2018.She compared to combined chemoradiation to her chest on 01/01/2019 and also received radiation to her left femur for metastatic disease but biopsy was inconclusive Started on consolidation therapy with Keytruda/Taxol/carboplatin ???3 on 02/26/2019 Consolidation therapy was discontinued after two cycles because of progressive pancytopenia and more severe thrombocytopenia. On 03/26/2019 and follow-up CT PET scan done on 05/02/2019 showed excellent response to therapy and she was switched to maintenance therapy with Keytruda alone 200 mg every 3 weeks up to 24 months as long as tolerating and there is a no evidence of disease progression. She began her first dose of single agent pembrolizumab on 05/21/2019. She is on a 3-week cycle. Because of progressive maculopapular skin rash involving torso and arms, Keytruda was put on hold and last dose was given on March 07, 2020 Skin biopsy was done in the first week of May 2020 from right flank showed findings consistent with drug-induced skin toxicity, Keytruda was discontinued after March 07, 2020 dose because of related side effects and toxicity e.g. dermal toxicity and there was a concern about pulmonary toxicity but pulmonology evaluation confirmed bilateral infiltrates seen on CT PET scan were most likely due to radiation-induced pneumonitis or chronic pulmonary changes not due to drug-related Follow-up CT PET scan done on April 30, 2020 showed no evidence of recurrence of disease but new left upper lobe paramediastinal infiltrate is FDG positive, likely inflammatory. Other new inflammatory appearing infiltrates are present in the medial right upper and superior segment of right lower lobe. The reactive prevascular mediastinal lymph node seen previously is now FDG negative As per pulmonology evaluation, these infiltrates are most likely due to radiation-induced pneumonitis or chronic pulmonary changes not drug-related Follow-up CT scan of the chest done on December 27, 2020 showed no increase in size of left paratracheal and medial left upper lobe soft tissue mass which is probably due to post radiation fibrosis. Stable 5 mm nodule in the lingula since December 04, 2019. No new mediastinal lymphadenopathy Plan: Discussed with patient regarding her labs white blood count 5.7 hemoglobin 10.1 hematocrit 31 platelets 278,000 iron studies shows iron saturation 17.9% which is low, iron 48, ferritin 160, TIBC 268 vitamin B12 383 Clinically, patient is doing reasonably well now with iron deficiency anemia, and could be multifactorial so we will recommend oral iron, ferrous sulfate 325 mg 2 tablets daily and then she will return to clinic in 1 month with CBC and iron studies and we will also refer her to Dr. Wyatt for EGD and colonoscopy for iron deficiency anemia. Signed By: Ame Morgan M.D. <<Signature on File>>
== END 2021-02-07 13:58 | disposition home or self-care (01) ==
LOC: ONCMED 14:02
PROVIDERS: Visit Provider Internal Medicine Hematology & Oncology
DX: D50.9 Iron deficiency anemia, unspecified (principal); Z85.89 Personal history of malignant neoplasm of other organs and systems; Z87.891 Personal history of nicotine dependence; Z92.3 Personal history of irradiation
CPT/HCPCS: 36591; 85025; 99214

== ENCOUNTER → 2021-02-14 14:21 | Outpatient (BNVA) | payer MEDICAID, SELFPAY | PROVIDERS: Visit Provider Nurse Practitioner | DX: F43.12 Post-traumatic stress disorder, chronic (principal) | CPT/HCPCS: 99214 ==

== ENCOUNTER 2021-03-08 15:29 | Outpatient (CLI) | payer MEDICAID, SELFPAY ==
[2021-03-08 16:13] LABS: Basophils % 0.4 %; Eosinophils # 0.2 10^3/uL (0.0-0.8); Eosinophils % 3.8 %; Hematocrit 32.5 % (37.0-47.0); Hemoglobin 10.6 g/dL (11.5-15.3); Lymphocytes # 1.2 10^3/uL (0.8-4.8); Lymphocytes % 22.2 %; Mean Corpuscular HGB Conc 32.6 g/dL (30.0-36.0); Mean Corpuscular Hemoglobin 30.7 pg (28.0-34.0); Mean Corpuscular Volume 94.2 fl (81-99); Mean Platelet Volume 9.2 fL (7.4-10.4); Monocytes # 0.4 10^3/uL (0.2-0.9); Monocytes % 8.1 %; Neutrophils # 3.48 10^3/uL (1.8-7.7); Neutrophils % 65.3 %; Nucleated Red Blood Cells % 0 %; Platelet Count 237 10^3/cmm (130-400); Red Blood Count 3.45 10^6/uL (4.1-5.3); Red Cell Distribution Width 14.6 % (12.1-15.1); White Blood Count 5.3 10^3/uL (4.0-10.0)
[2021-03-08 16:51] LABS: Ferritin 205 ng/mL (15-150); Iron 88 ug/dL (37-145); Total Iron Binding Capacity 283 mcg/dl; Unsaturated Iron Binding 195 ug/dL (112-347)
== END 2021-03-08 15:30 | disposition home or self-care (01) ==
LOC: ONCMED 15:30
PROVIDERS: Internal Medicine Hematology & Oncology; Visit Provider Internal Medicine Medical Oncology
DX: C34.82 Malignant neoplasm of overlapping sites of left bronchus and lung (principal); D50.9 Iron deficiency anemia, unspecified; M81.0 Age-related osteoporosis without current pathological fracture; Z79.899 Other long term (current) drug therapy
CPT/HCPCS: 36591; 82728; 83540; 83550; 85025

== ENCOUNTER 2021-03-10 06:43 | Outpatient (CLI) | payer MEDICAID, SELFPAY ==
--- NOTE | 2021-03-10 12:54 | ONC FU_ITS ---
Dr. Morgan follow up note Patient: Tracy Melton Unit #: [id number]: 1970 Dicatated By: Ame Morgan M.D.Date of Visit:Mar 10, 2021 Onc Med Follow-up/Prog Note History of Present Illness: Mrs. Melton is a 51-year-old female who presented to [facility] with left femur fracture. CT scan of the left femur showed pathological fracture of mid to distal femoral shaft with findings highly worrisome for underlying malignancy/metastatic disease. A bone scan was done on 10/22/2018. It reported abnormal uptake involving mid left femur through femoral condyles. Photopenia defect in the femoral diaphysis at the site of pathological fracture. Consistent with malignancy. No additional abnormal uptake throughout the bony skeleton to suggest the metastatic disease. Subsequently, she underwent open reduction and internal fixation on 10/22/2018. An open biopsy was obtained and it came back negative for malignancy. For further workup, Ms Melton underwent CT scan of chest abdomen pelvis on 10/22/2018. The scans showed large lobulated left mediastinal mass measuring 7.5 x 5.7 x 6 cm. Centered in the left paratracheal and AP window. Suspicious for confluent lymphadenopathy. Partially encasing the left subclavian artery, aorta, left main pulmonary artery and left main stem bronchus; Subcentimeter right upper and lingular pulmonary nodules, indeterminate for metastatic disease; Hepatic hemangioma; No metastatic disease to liver or adrenal glands; No bony lesion seen. MRI head done on 11/19/2018 showed no evidence of metastatic disease Mrs Melton underwent bronchoscopy and mediastinoscopy on 10/29/2018 and a para-aortic mass obtained via mediastinoscopy shows non-small cell lung cancer, squamous cell type. 25 year history of smoking ,quit smoking on 08/21/2018, Mrs Melton was started on combined chemoradiation to The thorax on 11/13/2018 with weekly carboplatin and Taxol. Completed combined chemoradiation on 01/01/2019. She was referred to orthopedic oncology at [facility] for biopsy-proven negative or Inconclusive as it showed scant necrotic neoplasm or but radiologically suspicious left femur pathological fracture. She had had 20 pound weight loss within [address] PET scan done on 12/06/2018 showed hypermetabolic left mediastinal mass with SUV of 9.2 this is inseparable from mediastinum and demonstrates invasion. An 1.7 x 2.5 cm sub-aortic lymph node with a mild FDG activity. Left femur intramedullary kari is in place with only mild postsurgical inflammatory activity Patient underwent left femur biopsy on 12/08/2018 and As per patient pathology was inconclusive for metastatic disease but clinical impression is still in favor of metastatic disease and she has completed radiation therapy to her femur Molecular profiling on tumor came back negative Mrs Melton on chemotherapy with carboplatin/Taxol/Keytruda ???4 on 02/25/2019, after 4 cycles, with a plan of repeating CT PET scan. If it showed good response then consider maintenance therapy with Keytruda alone Because of related side effects, with second cycle and on, her Taxol dose was changed to day 1 and day 8 but continue with Keytruda/carboplatin every 3 weeks noted some fullness in her left arm but no pain. For which she underwent left upper extremity venous Doppler study on 03/19/2019 which showed partial DVT seen within subclavian vein near the jugular. All other vessels appear free of thrombosis. Patient was evaluated in emergency room and was started on Eliquis 10 mg by mouth twice a day for 7 days which is completed on 03/26/2019 therafter 5 mg twice a day as a maintenance. And her Port-A-Cath was still functional and needed to continue with chemotherapy and then for maintenance therapy with Keytruda. Because of progressive pancytopenia her consolidation therapy with with carboplatin/Taxol/Keytruda was discontinued after 2 cycles and follow-up CT PET scan done on 05/02/2019 showed the left Mediastinal mass was 0.8 x 2.3 cm with SUV of 2.3 consistent with complete response to therapy. Inflammatory infiltrates in the anterior left upper lobe water FDG negative. The subaortic lymph node is no longer identified. No evidence of distant metastatic disease. Switched to maintenance Keytruda 200 mg every 3 weeks up to 24 months on 05/05/2019. Left lower leg swelling, for which she underwent venous Doppler study on 07/17/2019 which reported no evidence of DVT in left lower extremty Follow-up CT PET scan done on 09/26/2019 showed new left upper lobe infiltrates, most suggestive of infection then recurrence. Probable reactive prevascular lymph node And other concern was radiation recall pneumonitis , so decided to hold immunotherapy and she was referred to pulmonology and she was evaluated on 10/27/2019 and his impression was finding consistent with radiation-induced changes. A new bronchodilator was added to her current medication regimen. Immunotherapy with Keytruda had been on hold since 09/15/2019, after reviewing CT scan of chest done on December 04, 2019, Keytruda was restarted on December 08, 2019 The follow-up CT scan of chest done on December 04, 2019 showed left paratracheal and AP window soft tissue mass appears to be slightly larger than previous exam, as mentioned in the impression back in description, it says 4.5 cm mass does not appear to shows any gross deformity or change when compared with previous exam. Done on July 08, 2019. Mediastinum is normal Case was discussed with Dr. De La Cruz radiologist and her impression was pneumonitis seen earlier is better, no significant change compared to previous scan and recommended follow-up CT PET scan in 3 months. She is tolerating maintenance therapy with Keytruda well otherwise. As far left leg pain is concerned patient has seen neurosurgery who recommended her physical therapy as with surgery chances of her improvement is 50-50,Patient preferred physical therapy complaining of skin rash involving back of her shoulders and upper back and arms, itching, denies changing any shampoo or soap, denies any taking new medication as per patient she tried steroids x2 without much help. Immunotherapy is on hold since after March 07, 2020 dose because of persistent skin rash ? immunotherapy related, Skin biopsy from right flank area, As per discussion with dermatologyOn May 30, 2020, patient has drug-induced skin rash Probably due to Keytruda CT PET scan done on April 30, 2020 shows new left upper lobe paramediastinal infiltrate is FDG positive, likely inflammatory and other new inflammatory appearing infiltrates are present in the medial right upper and superior segment of right lower lobe. The reactive prevascular mediastinal lymph node seen previously is now FDG negative. Peripheral left upper lobe infiltrate seen on prior studies generally improved on the current.Was referred to pulmonology to rule out immunotherapy related pneumonitis and She was evaluated on June 21, 2020 and impression was those infiltrates seen on CT PET scan will work secondary to radiation therapy and scarring, and airspace opacity, bronchiectasis in a linear pattern., As per discussion with pulmonology these changes are less likely secondary to immunotherapy. Follow-up CT scan of chest abdomen pelvis done on September 07, 2020 showed no interval change in the left paratracheal and AP window residual soft tissue mass since July 08, 2019 or scan done November 2019. No lymphadenopathy. Long-term stability 4 mm noncalcified lingular nodule, no metastatic disease to the liver or adrenal gland Follow-up CT scan of chest done on December 27, 2020 shows no increase in size of left paratracheal and medial left upper lobe soft tissue mass which is probably due to postradiation fibrosis. Stable 5 mm nodule in the lingula since November 2019. No new mediastinal lymphadenopathy Came for follow-up, denies any specific complaints except chronic left leg pain which she has internal fixation for pathological fracture in the femur status post radiation therapy back pain is under control with current pain medication, patient is tolerating oral iron well but somewhat noncompliant. Patient was referred to Dr. Wyatt for EGD and colonoscopy, earlier patient declined but now she would consider., Denies any melena or hematochezia denies any hemoptysis or hematemesis, denies any jaundice Medications: Abilify 0.5 Tablet (of 5 mg) Tablet Oral daily, Aspirin 1 (81 mg) Tablet Oral daily, HYDROcodone-Acetaminophen 1 Tablet (of 7.5-325 mg) Oral t.i.d. PRN, LORazepam 0.5 - 1 Tablet (of 1 mg) Oral t.i.d. PRN, Stiolto Respimat Aerosol, solution Inhalation, Wellbutrin XL 1 (300 mg) Tablet SR 24 HR Oral daily, Zoloft 1.5 Tablet (of 100 mg) Oral daily Allergies: Bactrim and Cipro. Review of Systems: Review of Systems is not available for this patient. Vital Signs: Performed on Mar 10, 2021 09:10 Height - 64.00 in Weight - 125.6 lbs (LOW) BSA - 1.61 sq.m BMI - 21.56 Temperature - 97.2 F (LOW) Pulse - 92 /min Respiration - 18 /min BP - 130/72 mm(hg) O2 Sat - 97 % Pain - 4 Performance Status: 1 - No physically strenuous activity, but ambulatory and able to carry out light or sedentary work (e.g. office work, light house work). (ECOG) Physical Examination: ENMT - No mouth sores, no thrush, no jaundice, Respiratory - Lungs are clear to auscultation, Cardiovascular - Regular rate and rhythm of heart, Abdomen - Soft, bowel sounds present, Extremities - No visible edema. Lab/Imaging: Most recent lab results are not available for this patient. Impression: Squamous cell carcinoma involving left paratracheal area for mediastinoscopy done on 10/29/2018 CT scan of chest abdomen pelvis done on 10/22/2018 showed large lobulated left mediastinal mass measuring 7.5 x 5.7 x 6 cm. Centered in the left paratracheal and AP window. Suspicious for confluent adenopathy. Partially encasing the left subclavian artery, aorta, left main pulmonary artery and left main stem bronchus. Subcentimeter right upper and lingular pulmonary nodules, indeterminate for metastatic disease No metastatic disease to the liver or adrenal glands No bone metastases. MRI head done on 11/19/2018 showed no evidence of metastatic disease As per radiation oncology patient still awaiting approval from Medicaid for CT PET scan History of smoking for 25 years, quit smoking on 10/21/2018. Bone scan done on 10/22/2018 showed abnormal uptake involving left mid femur through the femoral condyles. Photopenia defect in the femoral diaphysis at the site of pathological fracture consistent with malignancy. No additional bone metastases seen. CT PET scan done on 12/06/2018 shows hypermetabolic left paraMediastinal mass with SUV of 9.2 and is inseparable from the mediastinum and demonstrates invasion. A cystic 1.7 x 2.5 cm subaortic node demonstrates mild FDG activity. And left femur intramedullary kari is in place, with only mild postsurgical inflammatory activity. History of left femur fracture due to fall, status post open reduction and internal fixation done on 10/22/2018, open biopsy was negative for metastatic disease Now being referred to orthopedic oncology at [facility] for second opinion Left femur biopsy was done on 12/08/2018. Started on combined chemoradiation to the chest wall with weekly carboplatin Taxol on 11/13/2018. Per Ms Geronimo, radiation therapy to left femur was also added on 11/24/2018.She compared to combined chemoradiation to her chest on 01/01/2019 and also received radiation to her left femur for metastatic disease but biopsy was inconclusive Started on consolidation therapy with Keytruda/Taxol/carboplatin ???3 on 02/26/2019 Consolidation therapy was discontinued after two cycles because of progressive pancytopenia and more severe thrombocytopenia. On 03/26/2019 and follow-up CT PET scan done on 05/02/2019 showed excellent response to therapy and she was switched to maintenance therapy with Keytruda alone 200 mg every 3 weeks up to 24 months as long as tolerating and there is a no evidence of disease progression. She began her first dose of single agent pembrolizumab on 05/21/2019. She is on a 3-week cycle. Because of progressive maculopapular skin rash involving torso and arms, Keytruda was put on hold and last dose was given on March 07, 2020 Skin biopsy was done in the first week of May 2020 from right flank showed findings consistent with drug-induced skin toxicity, Keytruda was discontinued after March 07, 2020 dose because of related side effects and toxicity e.g. dermal toxicity and there was a concern about pulmonary toxicity but pulmonology evaluation confirmed bilateral infiltrates seen on CT PET scan were most likely due to radiation-induced pneumonitis or chronic pulmonary changes not due to drug-related Follow-up CT PET scan done on April 30, 2020 showed no evidence of recurrence of disease but new left upper lobe paramediastinal infiltrate is FDG positive, likely inflammatory. Other new inflammatory appearing infiltrates are present in the medial right upper and superior segment of right lower lobe. The reactive prevascular mediastinal lymph node seen previously is now FDG negative As per pulmonology evaluation, these infiltrates are most likely due to radiation-induced pneumonitis or chronic pulmonary changes not drug-related Follow-up CT scan of the chest done on December 27, 2020 showed no increase in size of left paratracheal and medial left upper lobe soft tissue mass which is probably due to post radiation fibrosis. Stable 5 mm nodule in the lingula since December 04, 2019. No new mediastinal lymphadenopathy Plan: Discussed with patient regarding her labs white blood count 5.3 hemoglobin 10.6 compared to 10.1 previously hematocrit 32.5 platelets 237,000 iron studies shows iron saturation 31 compared to 17.9% ferritin 205 compared to 160 previously iron is 88 compared to 48 previously Clinically, patient doing reasonably well with no signs symptom suggestive of recurrence of disease, will continue to monitor As far as anemia is concerned, appear multifactorial, on oral iron but somewhat noncompliant, patient was advised to take oral iron as recommended, her iron studies shows normalization of iron stores and some improvement in mild anemia, will continue to monitor Patient was advised to consider EGD and colonoscopy for iron deficiency anemia and patient agreed so we will call Dr. Wyatt's office to schedule for EGD and colonoscopy. Return to clinic in 2 months with CBC CMP and follow-up CT scan of chest Signed By: Ame Morgan M.D. <<Signature on File>>
== END 2021-03-10 06:44 | disposition home or self-care (01) ==
LOC: ONCMED 06:43
PROVIDERS: Visit Provider Internal Medicine Hematology & Oncology
DX: Z08 Encounter for follow-up examination after completed treatment for malignant neoplasm (principal); Z85.118 Personal history of other malignant neoplasm of bronchus and lung; D50.9 Iron deficiency anemia, unspecified; Z92.21 Personal history of antineoplastic chemotherapy; Z87.891 Personal history of nicotine dependence; Z79.82 Long term (current) use of aspirin; Z79.899 Other long term (current) drug therapy
CPT/HCPCS: 99214

== ENCOUNTER → 2021-04-04 13:20 | Outpatient (BNVA) | payer MEDICAID, SELFPAY | PROVIDERS: Visit Provider Nurse Practitioner | DX: F43.12 Post-traumatic stress disorder, chronic (principal) | CPT/HCPCS: 99214 ==

== ENCOUNTER → 2021-04-19 15:27 | Outpatient (BNVA) | payer MEDICARE, MEDICAID, SELFPAY | PROVIDERS: Visit Provider Internal Medicine | DX: Z01.812 Encounter for preprocedural laboratory examination (principal); Z20.822 Contact with and (suspected) exposure to COVID-19 | CPT/HCPCS: 87635 ==

== ENCOUNTER 2021-05-02 11:18 | Outpatient (CLI) | payer MEDICARE, MEDICAID, SELFPAY ==
--- NOTE | 2021-05-02 11:20 | CT_ITS ---
WS: [id number] CT CHEST WITH INTRAVENOUS CONTRAST HISTORY: PRIOR HX OF SMOKING CURRENT VAPE USAGE TECHNIQUE: Contiguous 5 mm axial imaging performed on the thorax. Coronal and sagittal reformats are submitted. All CT scans at [facility] use at least one of these dose optimization techniques: automated exposure control; mA and/or kV adjustment per patient size (includes targeted exams where dose is matched to clinical indication); or iterative reconstruction. CONTRAST: Omnipaque 300; 95 mL IV. DLP: 363.09 mGy.cm COMPARISON: 12/27/2020 and 09/07/2020 Lungs and central airway: Continued soft tissue mass along the LEFT paratracheal and medial LEFT uppe r lobe as compared to multiple prior examinations. No significant increase in size of this mass or po stobstructive atelectasis and fibrotic changes over multiple prior studies. Mass extends over a [place] th of 3.6 cm x 2.4 x 3.9 cm. There is partial encasement of the LEFT subclavian artery which is simil ar to prior studies. 5 mm nodule unchanged in size in the LEFT upper lobe. No new mass or nodule or p neumonia. Pleura: Normal. No pleural effusion. Heart and pericardium: Normal size heart. No pericardial effusion. Moderate atherosclerotic changes w ithin the [place] coronary arteries. Mediastinum and anibal: No increase in size or number of the mediastinal or hilar lymph nodes. Small be nign axillary lymph nodes. Vessels: Mild atherosclerosis aorta. Normal size pulmonary artery. Chest wall and lower neck: LEFT subclavian Port-A-Cath. Upper abdomen: Mild hepatic steatosis. No adrenal mass. Visualized liver is normal. Osseous structures: No destructive process. CT/CT chest w con* [id number] IMPRESSION: 1. Stable post obstructive atelectasis and fibrotic changes in the medial LEFT upper thorax extending into the mediastinum. No obvious progression of disease or recurrence. 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 2. No new or increasing mediastinal or hilar lymph nodes. 3. Stable 5 mm LEFT upper lobe pulmonary nodule.
[2021-05-02] MEDS: iohexol 300 mg/mL 100 mL Btl IV (13:01)
== END 2021-05-02 11:19 | disposition home or self-care (01) ==
PROVIDERS: Visit Provider Internal Medicine Medical Oncology
DX: F17.290 Nicotine dependence, other tobacco product, uncomplicated (principal); J98.11 Atelectasis; R91.1 Solitary pulmonary nodule
CPT/HCPCS: 71260; Q9967

== ENCOUNTER 2021-05-10 13:07 | Outpatient (CLI) | payer MEDICARE, MEDICAID, SELFPAY ==
[2021-05-10 13:59] LABS: Basophils % 0.3 %; Eosinophils # 0.2 10^3/uL (0.0-0.8); Eosinophils % 3.2 %; Hematocrit 31.5 % (37.0-47.0); Hemoglobin 10.8 g/dL (11.5-15.3); Lymphocytes # 1.2 10^3/uL (0.8-4.8); Lymphocytes % 20.3 %; Mean Corpuscular HGB Conc 34.3 g/dL (30.0-36.0); Mean Corpuscular Hemoglobin 30.3 pg (28.0-34.0); Mean Corpuscular Volume 88.5 fl (81-99); Mean Platelet Volume 9.1 fL (7.4-10.4); Monocytes # 0.3 10^3/uL (0.2-0.9); Monocytes % 5.3 %; Neutrophils # 4.14 10^3/uL (1.8-7.7); Neutrophils % 70.7 %; Nucleated Red Blood Cells % 0 %; Platelet Count 230 10^3/cmm (130-400); Red Blood Count 3.56 10^6/uL (4.1-5.3); Red Cell Distribution Width 12.7 % (12.1-15.1); White Blood Count 5.9 10^3/uL (4.0-10.0)
[2021-05-10 14:33] LABS: Ferritin 95 ng/mL (15-150); Iron 118 ug/dL (37-145); Percent Saturation 41.2 % (20-50); Total Iron Binding Capacity 286 mcg/dl; Unsaturated Iron Binding 168 ug/dL (112-347)
--- NOTE | 2021-06-23 08:52 | ONC FU_ITS ---
Dr. Morgan follow up note Patient: Tracy Melton Unit #: [id number]: 1970 Dicatated By: Ame Morgan M.D.Date of Visit:May 10, 2021 Onc Med Follow-up/Prog Note History of Present Illness: Mrs. Melton is a 51-year-old female who presented to [facility] with left femur fracture. CT scan of the left femur showed pathological fracture of mid to distal femoral shaft with findings highly worrisome for underlying malignancy/metastatic disease. A bone scan was done on 10/22/2018. It reported abnormal uptake involving mid left femur through femoral condyles. Photopenia defect in the femoral diaphysis at the site of pathological fracture. Consistent with malignancy. No additional abnormal uptake throughout the bony skeleton to suggest the metastatic disease. Subsequently, she underwent open reduction and internal fixation on 10/22/2018. An open biopsy was obtained and it came back negative for malignancy. For further workup, Ms Melton underwent CT scan of chest abdomen pelvis on 10/22/2018. The scans showed large lobulated left mediastinal mass measuring 7.5 x 5.7 x 6 cm. Centered in the left paratracheal and AP window. Suspicious for confluent lymphadenopathy. Partially encasing the left subclavian artery, aorta, left main pulmonary artery and left main stem bronchus; Subcentimeter right upper and lingular pulmonary nodules, indeterminate for metastatic disease; Hepatic hemangioma; No metastatic disease to liver or adrenal glands; No bony lesion seen. MRI head done on 11/19/2018 showed no evidence of metastatic disease Mrs Melton underwent bronchoscopy and mediastinoscopy on 10/29/2018 and a para-aortic mass obtained via mediastinoscopy shows non-small cell lung cancer, squamous cell type. 25 year history of smoking ,quit smoking on 08/21/2018, Mrs Melton was started on combined chemoradiation to The thorax on 11/13/2018 with weekly carboplatin and Taxol. Completed combined chemoradiation on 01/01/2019. She was referred to orthopedic oncology at [facility] for biopsy-proven negative or Inconclusive as it showed scant necrotic neoplasm or but radiologically suspicious left femur pathological fracture. She had had 20 pound weight loss within [address] PET scan done on 12/06/2018 showed hypermetabolic left mediastinal mass with SUV of 9.2 this is inseparable from mediastinum and demonstrates invasion. An 1.7 x 2.5 cm sub-aortic lymph node with a mild FDG activity. Left femur intramedullary kari is in place with only mild postsurgical inflammatory activity Patient underwent left femur biopsy on 12/08/2018 and As per patient pathology was inconclusive for metastatic disease but clinical impression is still in favor of metastatic disease and she has completed radiation therapy to her femur Molecular profiling on tumor came back negative Mrs Melton on chemotherapy with carboplatin/Taxol/Keytruda ???4 on 02/25/2019, after 4 cycles, with a plan of repeating CT PET scan. If it showed good response then consider maintenance therapy with Keytruda alone Because of related side effects, with second cycle and on, her Taxol dose was changed to day 1 and day 8 but continue with Keytruda/carboplatin every 3 weeks noted some fullness in her left arm but no pain. For which she underwent left upper extremity venous Doppler study on 03/19/2019 which showed partial DVT seen within subclavian vein near the jugular. All other vessels appear free of thrombosis. Patient was evaluated in emergency room and was started on Eliquis 10 mg by mouth twice a day for 7 days which is completed on 03/26/2019 therafter 5 mg twice a day as a maintenance. And her Port-A-Cath was still functional and needed to continue with chemotherapy and then for maintenance therapy with Keytruda. Because of progressive pancytopenia her consolidation therapy with with carboplatin/Taxol/Keytruda was discontinued after 2 cycles and follow-up CT PET scan done on 05/02/2019 showed the left Mediastinal mass was 0.8 x 2.3 cm with SUV of 2.3 consistent with complete response to therapy. Inflammatory infiltrates in the anterior left upper lobe water FDG negative. The subaortic lymph node is no longer identified. No evidence of distant metastatic disease. Switched to maintenance Keytruda 200 mg every 3 weeks up to 24 months on 05/05/2019. Left lower leg swelling, for which she underwent venous Doppler study on 07/17/2019 which reported no evidence of DVT in left lower extremty Follow-up CT PET scan done on 09/26/2019 showed new left upper lobe infiltrates, most suggestive of infection then recurrence. Probable reactive prevascular lymph node And other concern was radiation recall pneumonitis , so decided to hold immunotherapy and she was referred to pulmonology and she was evaluated on 10/27/2019 and his impression was finding consistent with radiation-induced changes. A new bronchodilator was added to her current medication regimen. Immunotherapy with Keytruda had been on hold since 09/15/2019, after reviewing CT scan of chest done on December 04, 2019, Keytruda was restarted on December 08, 2019 The follow-up CT scan of chest done on December 04, 2019 showed left paratracheal and AP window soft tissue mass appears to be slightly larger than previous exam, as mentioned in the impression back in description, it says 4.5 cm mass does not appear to shows any gross deformity or change when compared with previous exam. Done on July 08, 2019. Mediastinum is normal Case was discussed with Dr. De La Cruz radiologist and her impression was pneumonitis seen earlier is better, no significant change compared to previous scan and recommended follow-up CT PET scan in 3 months. She is tolerating maintenance therapy with Keytruda well otherwise. As far left leg pain is concerned patient has seen neurosurgery who recommended her physical therapy as with surgery chances of her improvement is 50-50,Patient preferred physical therapy complaining of skin rash involving back of her shoulders and upper back and arms, itching, denies changing any shampoo or soap, denies any taking new medication as per patient she tried steroids x2 without much help. Immunotherapy is on hold since after March 07, 2020 dose because of persistent skin rash ? immunotherapy related, Skin biopsy from right flank area, As per discussion with dermatologyOn May 30, 2020, patient has drug-induced skin rash Probably due to Keytruda CT PET scan done on April 30, 2020 shows new left upper lobe paramediastinal infiltrate is FDG positive, likely inflammatory and other new inflammatory appearing infiltrates are present in the medial right upper and superior segment of right lower lobe. The reactive prevascular mediastinal lymph node seen previously is now FDG negative. Peripheral left upper lobe infiltrate seen on prior studies generally improved on the current.Was referred to pulmonology to rule out immunotherapy related pneumonitis and She was evaluated on June 21, 2020 and impression was those infiltrates seen on CT PET scan will work secondary to radiation therapy and scarring, and airspace opacity, bronchiectasis in a linear pattern., As per discussion with pulmonology these changes are less likely secondary to immunotherapy. Follow-up CT scan of chest abdomen pelvis done on September 07, 2020 showed no interval change in the left paratracheal and AP window residual soft tissue mass since July 08, 2019 or scan done November 2019. No lymphadenopathy. Long-term stability 4 mm noncalcified lingular nodule, no metastatic disease to the liver or adrenal gland Follow-up CT scan of chest done on December 27, 2020 shows no increase in size of left paratracheal and medial left upper lobe soft tissue mass which is probably due to postradiation fibrosis. Stable 5 mm nodule in the lingula since November 2019. No new mediastinal lymphadenopathy Follow-up CT scan of chest done on May 02, 2021 shows stable postobstructive atelectasis and fibrotic changes in the left medial upper thorax extending to the mediastinum. No obvious progression of disease or recurrence. 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 No new or increasing mediastinal lymph node or hilar lymphadenopathy. Stable 5 mm left upper lobe pulmonary nodule Came for follow-up, denies any specific complaints, no fever chills, no nausea or vomiting, no diarrhea constipation, no hemoptysis or hematemesis, Denies any new bony pains, denies any jaundice denies any weight loss patient was scheduled for colonoscopy/EGD for iron deficiency anemia, as per patient she was supposed to be n.p.o. but she ate something by mistake so procedure was canceled, now awaiting for reschedule. Medications: Abilify 0.5 Tablet (of 5 mg) Tablet Oral daily, Aspirin 1 (81 mg) Tablet Oral daily, HYDROcodone-Acetaminophen 1 Tablet (of 7.5-325 mg) Oral t.i.d. PRN, LORazepam 0.5 - 1 Tablet (of 1 mg) Oral t.i.d. PRN, Stiolto Respimat Aerosol, solution Inhalation, Wellbutrin XL 1 (300 mg) Tablet SR 24 HR Oral daily, Zoloft 1.5 Tablet (of 100 mg) Oral daily Allergies: Bactrim and Cipro. Review of Systems: Review of Systems is not available for this patient. Vital Signs: Performed on May 10, 2021 15:42 Height - 64.00 in Weight - 132.2 lbs (HIGH) BSA - 1.64 sq.m BMI - 22.69 Temperature - 98.0 F (LOW) Pulse - 106 /min (HIGH) Respiration - 18 /min BP - 120/71 mm(hg) O2 Sat - 97 % Pain - 0 Fatigue - 7 Performance Status: 0 - Fully active, able to carry on all predisease activities without restrictions. (ECOG) Physical Examination: ENMT - No mouth sores, no thrush, no jaundice, Respiratory - Poor air entry otherwise clear, Cardiovascular - Regular rate and rhythm of heart, Abdomen - Soft, bowel sounds present, Extremities - No visible edema. Lab/Imaging: Most recent lab results are not available for this patient. Impression: Squamous cell carcinoma involving left paratracheal area for mediastinoscopy done on 10/29/2018 CT scan of chest abdomen pelvis done on 10/22/2018 showed large lobulated left mediastinal mass measuring 7.5 x 5.7 x 6 cm. Centered in the left paratracheal and AP window. Suspicious for confluent adenopathy. Partially encasing the left subclavian artery, aorta, left main pulmonary artery and left main stem bronchus. Subcentimeter right upper and lingular pulmonary nodules, indeterminate for metastatic disease No metastatic disease to the liver or adrenal glands No bone metastases. MRI head done on 11/19/2018 showed no evidence of metastatic disease As per radiation oncology patient still awaiting approval from Medicaid for CT PET scan History of smoking for 25 years, quit smoking on 10/21/2018. Bone scan done on 10/22/2018 showed abnormal uptake involving left mid femur through the femoral condyles. Photopenia defect in the femoral diaphysis at the site of pathological fracture consistent with malignancy. No additional bone metastases seen. CT PET scan done on 12/06/2018 shows hypermetabolic left paraMediastinal mass with SUV of 9.2 and is inseparable from the mediastinum and demonstrates invasion. A cystic 1.7 x 2.5 cm subaortic node demonstrates mild FDG activity. And left femur intramedullary kari is in place, with only mild postsurgical inflammatory activity. History of left femur fracture due to fall, status post open reduction and internal fixation done on 10/22/2018, open biopsy was negative for metastatic disease Now being referred to orthopedic oncology at [facility] for second opinion Left femur biopsy was done on 12/08/2018. Started on combined chemoradiation to the chest wall with weekly carboplatin Taxol on 11/13/2018. Per Ms Melton, radiation therapy to left femur was also added on 11/24/2018.She compared to combined chemoradiation to her chest on 01/01/2019 and also received radiation to her left femur for metastatic disease but biopsy was inconclusive Started on consolidation therapy with Keytruda/Taxol/carboplatin ???3 on 02/26/2019 Consolidation therapy was discontinued after two cycles because of progressive pancytopenia and more severe thrombocytopenia. On 03/26/2019 and follow-up CT PET scan done on 05/02/2019 showed excellent response to therapy and she was switched to maintenance therapy with Keytruda alone 200 mg every 3 weeks up to 24 months as long as tolerating and there is a no evidence of disease progression. She began her first dose of single agent pembrolizumab on 05/21/2019. She is on a 3-week cycle. Because of progressive maculopapular skin rash involving torso and arms, Keytruda was put on hold and last dose was given on March 07, 2020 Skin biopsy was done in the first week of May 2020 from right flank showed findings consistent with drug-induced skin toxicity, Keytruda was discontinued after March 07, 2020 dose because of related side effects and toxicity e.g. dermal toxicity and there was a concern about pulmonary toxicity but pulmonology evaluation confirmed bilateral infiltrates seen on CT PET scan were most likely due to radiation-induced pneumonitis or chronic pulmonary changes not due to drug-related Follow-up CT PET scan done on April 30, 2020 showed no evidence of recurrence of disease but new left upper lobe paramediastinal infiltrate is FDG positive, likely inflammatory. Other new inflammatory appearing infiltrates are present in the medial right upper and superior segment of right lower lobe. The reactive prevascular mediastinal lymph node seen previously is now FDG negative As per pulmonology evaluation, these infiltrates are most likely due to radiation-induced pneumonitis or chronic pulmonary changes not drug-related Follow-up CT scan of the chest done on December 27, 2020 showed no increase in size of left paratracheal and medial left upper lobe soft tissue mass which is probably due to post radiation fibrosis. Stable 5 mm nodule in the lingula since December 04, 2019. No new mediastinal lymphadenopathy Plan: Discussed with patient regarding her labs white blood count 5.9 hemoglobin 10.8 g compared to 10.6 previously hematocrit 31.5 platelets 230,000 iron studies shows iron saturation of 41.2% ferritin 95 compared to 205 previously iron [address] scan of chest showed no evidence of recurrence rather post radiation fibrosis involving left lung and stable 5 mm left upper lobe nodule, no mediastinal/hilar lymphadenopathy Clinically, patient is doing well with no signs symptoms history of recurrence of disease, her follow-up CT scan of chest has confirmed that her lab work-up is reasonable, she has mild anemia, her EGD/colonoscopy was rescheduled because patient ate something prior to the procedure, now awaiting reschedule. Patient was advised to consider GI evaluation if iron deficiency anemia. And now she will return to clinic in 3 months with CBC CMP in the meantime she will continue monthly port maintenance Signed By: Ame Morgan M.D. <<Signature on File>>
== END 2021-05-10 13:08 | disposition home or self-care (01) ==
LOC: ONCMED 13:09
PROVIDERS: Visit Provider Internal Medicine Hematology & Oncology
DX: Z08 Encounter for follow-up examination after completed treatment for malignant neoplasm (principal); Z85.118 Personal history of other malignant neoplasm of bronchus and lung; D50.9 Iron deficiency anemia, unspecified; Z87.891 Personal history of nicotine dependence; Z92.21 Personal history of antineoplastic chemotherapy; Z92.3 Personal history of irradiation; Z86.19 Personal history of other infectious and parasitic diseases
CPT/HCPCS: 36591; 82728; 83540; 83550; 85025; 99214

== ENCOUNTER 2021-05-31 09:03 | Outpatient (CLI) | payer MEDICARE, MEDICAID, SELFPAY ==
[2021-05-31 09:44] LABS: Basophils % 0.4 %; Eosinophils # 0.2 10^3/uL (0.0-0.8); Hematocrit 30.8 % (37.0-47.0); Hemoglobin 10.1 g/dL (11.5-15.3); Mean Corpuscular HGB Conc 32.8 g/dL (30.0-36.0); Mean Corpuscular Hemoglobin 29.2 pg (28.0-34.0); Monocytes # 0.4 10^3/uL (0.2-0.9); Monocytes % 7.5 %; Neutrophils # 3.18 10^3/uL (1.8-7.7); Neutrophils % 66.7 %; Nucleated Red Blood Cells % 0 %; Platelet Count 238 10^3/cmm (130-400); Red Blood Count 3.46 10^6/uL (4.1-5.3); Red Cell Distribution Width 12.4 % (12.1-15.1); White Blood Count 4.8 10^3/uL (4.0-10.0)
[2021-05-31 09:59] LABS: Alanine Aminotransferase 9 U/L (0-33); Albumin Level 3.6 g/dL (3.5-5.2); Alkaline Phosphatase 63 IU/L (35-105); Anion Gap 18.5 (5-19); Aspartate Amino Transferase 12 U/L (0-32); Blood Urea Nitrogen 10 mg/dL (6-20); Calcium 8.3 mg/dL (8.5-10.5); Carbon Dioxide 23 mmol/L (22-29); Chloride 102 mmol/L (98-107); Globulin 2.9 g/dL (1.3-4.6); Glomerular Filtration Rate 129.1 mL/min (90-130); Glucose 158 mg/dL (65-115); Osmolality Calculated 292 mOsm/kg (285-295); Potassium 3.5 mmol/L (3.5-5.1); Sodium 140 mmol/L (136-145); Total Bilirubin 0.2 mg/dL (0.15-1.2); Total Protein 6.5 g/dL (6.6-8.7)
[2021-05-31] MEDS: cyanocobalamin 1,000 mcg/mL SDV 1000 MCG SUBCUT (11:36)
--- NOTE | 2021-06-01 10:01 | ONC FU_ITS ---
Dr. Morgan follow up note Patient: Tracy Melton Unit #: [id number]: [id number] Dicatated By: Ame Morgan M.D.Date of Visit:May 31, 2021 Onc Med Follow-up/Prog Note History of Present Illness: Mrs. Melton is a 51-year-old female who presented to [facility] with left femur fracture. CT scan of the left femur showed pathological fracture of mid to distal femoral shaft with findings highly worrisome for underlying malignancy/metastatic disease. A bone scan was done on 10/22/2018. It reported abnormal uptake involving mid left femur through femoral condyles. Photopenia defect in the femoral diaphysis at the site of pathological fracture. Consistent with malignancy. No additional abnormal uptake throughout the bony skeleton to suggest the metastatic disease. Subsequently, she underwent open reduction and internal fixation on 10/22/2018. An open biopsy was obtained and it came back negative for malignancy. For further workup, Ms Melton underwent CT scan of chest abdomen pelvis on 10/22/2018. The scans showed large lobulated left mediastinal mass measuring 7.5 x 5.7 x 6 cm. Centered in the left paratracheal and AP window. Suspicious for confluent lymphadenopathy. Partially encasing the left subclavian artery, aorta, left main pulmonary artery and left main stem bronchus; Subcentimeter right upper and lingular pulmonary nodules, indeterminate for metastatic disease; Hepatic hemangioma; No metastatic disease to liver or adrenal glands; No bony lesion seen. MRI head done on 11/19/2018 showed no evidence of metastatic disease Mrs Melton underwent bronchoscopy and mediastinoscopy on 10/29/2018 and a para-aortic mass obtained via mediastinoscopy shows non-small cell lung cancer, squamous cell type. 25 year history of smoking ,quit smoking on 08/21/2018, Mrs Melton was started on combined chemoradiation to The thorax on 11/13/2018 with weekly carboplatin and Taxol. Completed combined chemoradiation on 01/01/2019. She was referred to orthopedic oncology at [facility] for biopsy-proven negative or Inconclusive as it showed scant necrotic neoplasm or but radiologically suspicious left femur pathological fracture. She had had 20 pound weight loss within [address] PET scan done on 12/06/2018 showed hypermetabolic left mediastinal mass with SUV of 9.2 this is inseparable from mediastinum and demonstrates invasion. An 1.7 x 2.5 cm sub-aortic lymph node with a mild FDG activity. Left femur intramedullary kari is in place with only mild postsurgical inflammatory activity Patient underwent left femur biopsy on 12/08/2018 and As per patient pathology was inconclusive for metastatic disease but clinical impression is still in favor of metastatic disease and she has completed radiation therapy to her femur Molecular profiling on tumor came back negative Mrs Melton on chemotherapy with carboplatin/Taxol/Keytruda ???4 on 02/25/2019, after 4 cycles, with a plan of repeating CT PET scan. If it showed good response then consider maintenance therapy with Keytruda alone Because of related side effects, with second cycle and on, her Taxol dose was changed to day 1 and day 8 but continue with Keytruda/carboplatin every 3 weeks noted some fullness in her left arm but no pain. For which she underwent left upper extremity venous Doppler study on 03/19/2019 which showed partial DVT seen within subclavian vein near the jugular. All other vessels appear free of thrombosis. Patient was evaluated in emergency room and was started on Eliquis 10 mg by mouth twice a day for 7 days which is completed on 03/26/2019 therafter 5 mg twice a day as a maintenance. And her Port-A-Cath was still functional and needed to continue with chemotherapy and then for maintenance therapy with Keytruda. Because of progressive pancytopenia her consolidation therapy with with carboplatin/Taxol/Keytruda was discontinued after 2 cycles and follow-up CT PET scan done on 05/02/2019 showed the left Mediastinal mass was 0.8 x 2.3 cm with SUV of 2.3 consistent with complete response to therapy. Inflammatory infiltrates in the anterior left upper lobe water FDG negative. The subaortic lymph node is no longer identified. No evidence of distant metastatic disease. Switched to maintenance Keytruda 200 mg every 3 weeks up to 24 months on 05/05/2019. Left lower leg swelling, for which she underwent venous Doppler study on 07/17/2019 which reported no evidence of DVT in left lower extremty Follow-up CT PET scan done on 09/26/2019 showed new left upper lobe infiltrates, most suggestive of infection then recurrence. Probable reactive prevascular lymph node And other concern was radiation recall pneumonitis , so decided to hold immunotherapy and she was referred to pulmonology and she was evaluated on 10/27/2019 and his impression was finding consistent with radiation-induced changes. A new bronchodilator was added to her current medication regimen. Immunotherapy with Keytruda had been on hold since 09/15/2019, after reviewing CT scan of chest done on December 04, 2019, Keytruda was restarted on December 08, 2019 The follow-up CT scan of chest done on December 04, 2019 showed left paratracheal and AP window soft tissue mass appears to be slightly larger than previous exam, as mentioned in the impression back in description, it says 4.5 cm mass does not appear to shows any gross deformity or change when compared with previous exam. Done on July 08, 2019. Mediastinum is normal Case was discussed with Dr. De La Cruz radiologist and her impression was pneumonitis seen earlier is better, no significant change compared to previous scan and recommended follow-up CT PET scan in 3 months. She is tolerating maintenance therapy with Keytruda well otherwise. As far left leg pain is concerned patient has seen neurosurgery who recommended her physical therapy as with surgery chances of her improvement is 50-50,Patient preferred physical therapy complaining of skin rash involving back of her shoulders and upper back and arms, itching, denies changing any shampoo or soap, denies any taking new medication as per patient she tried steroids x2 without much help. Immunotherapy is on hold since after March 07, 2020 dose because of persistent skin rash ? immunotherapy related, Skin biopsy from right flank area, As per discussion with dermatologyOn May 30, 2020, patient has drug-induced skin rash Probably due to Keytruda CT PET scan done on April 30, 2020 shows new left upper lobe paramediastinal infiltrate is FDG positive, likely inflammatory and other new inflammatory appearing infiltrates are present in the medial right upper and superior segment of right lower lobe. The reactive prevascular mediastinal lymph node seen previously is now FDG negative. Peripheral left upper lobe infiltrate seen on prior studies generally improved on the current.Was referred to pulmonology to rule out immunotherapy related pneumonitis and She was evaluated on June 21, 2020 and impression was those infiltrates seen on CT PET scan will work secondary to radiation therapy and scarring, and airspace opacity, bronchiectasis in a linear pattern., As per discussion with pulmonology these changes are less likely secondary to immunotherapy. Follow-up CT scan of chest abdomen pelvis done on September 07, 2020 showed no interval change in the left paratracheal and AP window residual soft tissue mass since July 08, 2019 or scan done November 2019. No lymphadenopathy. Long-term stability 4 mm noncalcified lingular nodule, no metastatic disease to the liver or adrenal gland Follow-up CT scan of chest done on December 27, 2020 shows no increase in size of left paratracheal and medial left upper lobe soft tissue mass which is probably due to postradiation fibrosis. Stable 5 mm nodule in the lingula since November 2019. No new mediastinal lymphadenopathy Follow-up CT scan of chest done on May 02, 2021 shows stable postobstructive atelectasis and fibrotic changes in the left medial upper thorax extending to the mediastinum. No obvious progression of disease or recurrence. 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 No new or increasing mediastinal lymph node or hilar lymphadenopathy. Stable 5 mm left upper lobe pulmonary nodule Came for follow-up, denies any specific complaints, no fever chills, no nausea or vomiting, no diarrhea constipation, no melena or hematochezia, no hemoptysis hematemesis. No jaundice, Overall feeling well, energetic, Tolerating oral iron well Medications: Abilify 0.5 Tablet (of 5 mg) Tablet Oral daily, Aspirin 1 (81 mg) Tablet Oral daily, HYDROcodone-Acetaminophen 1 Tablet (of 7.5-325 mg) Oral t.i.d. PRN, LORazepam 0.5 - 1 Tablet (of 1 mg) Oral t.i.d. PRN, Stiolto Respimat Aerosol, solution Inhalation, Wellbutrin XL 1 (300 mg) Tablet SR 24 HR Oral daily, Zoloft 1.5 Tablet (of 100 mg) Oral daily Allergies: Bactrim and Cipro. Review of Systems: Review of Systems is not available for this patient. Vital Signs: Performed on May 31, 2021 14:44 Height - 64.00 in Weight - 134.2 lbs (HIGH) BSA - 1.65 sq.m BMI - 23.04 Temperature - 96.2 F (LOW) Pulse - 98 /min Respiration - 18 /min BP - 125/73 mm(hg) O2 Sat - 98 % Pain - 6 Fatigue - 7 Performance Status: 0 - Fully active, able to carry on all predisease activities without restrictions. (ECOG) Physical Examination: ENMT - No mouth sores, no thrush, no jaundice, Respiratory - Lungs are clear to auscultation, Cardiovascular - Regular rate and rhythm of heart, Abdomen - Soft, bowel sounds present, Extremities - No visible edema. Lab/Imaging: Most recent lab results are not available for this patient. Impression: Squamous cell carcinoma involving left paratracheal area for mediastinoscopy done on 10/29/2018 CT scan of chest abdomen pelvis done on 10/22/2018 showed large lobulated left mediastinal mass measuring 7.5 x 5.7 x 6 cm. Centered in the left paratracheal and AP window. Suspicious for confluent adenopathy. Partially encasing the left subclavian artery, aorta, left main pulmonary artery and left main stem bronchus. Subcentimeter right upper and lingular pulmonary nodules, indeterminate for metastatic disease No metastatic disease to the liver or adrenal glands No bone metastases. MRI head done on 11/19/2018 showed no evidence of metastatic disease As per radiation oncology patient still awaiting approval from Medicaid for CT PET scan History of smoking for 25 years, quit smoking on 10/21/2018. Bone scan done on 10/22/2018 showed abnormal uptake involving left mid femur through the femoral condyles. Photopenia defect in the femoral diaphysis at the site of pathological fracture consistent with malignancy. No additional bone metastases seen. CT PET scan done on 12/06/2018 shows hypermetabolic left paraMediastinal mass with SUV of 9.2 and is inseparable from the mediastinum and demonstrates invasion. A cystic 1.7 x 2.5 cm subaortic node demonstrates mild FDG activity. And left femur intramedullary kari is in place, with only mild postsurgical inflammatory activity. History of left femur fracture due to fall, status post open reduction and internal fixation done on 10/22/2018, open biopsy was negative for metastatic disease Now being referred to orthopedic oncology at [facility] for second opinion Left femur biopsy was done on 12/08/2018. Started on combined chemoradiation to the chest wall with weekly carboplatin Taxol on 11/13/2018. Per Ms Melton, radiation therapy to left femur was also added on 11/24/2018.She compared to combined chemoradiation to her chest on 01/01/2019 and also received radiation to her left femur for metastatic disease but biopsy was inconclusive Started on consolidation therapy with Keytruda/Taxol/carboplatin ???3 on 02/26/2019 Consolidation therapy was discontinued after two cycles because of progressive pancytopenia and more severe thrombocytopenia. On 03/26/2019 and follow-up CT PET scan done on 05/02/2019 showed excellent response to therapy and she was switched to maintenance therapy with Keytruda alone 200 mg every 3 weeks up to 24 months as long as tolerating and there is a no evidence of disease progression. She began her first dose of single agent pembrolizumab on 05/21/2019. She is on a 3-week cycle. Because of progressive maculopapular skin rash involving torso and arms, Keytruda was put on hold and last dose was given on March 07, 2020 Skin biopsy was done in the first week of May 2020 from right flank showed findings consistent with drug-induced skin toxicity, Keytruda was discontinued after March 07, 2020 dose because of related side effects and toxicity e.g. dermal toxicity and there was a concern about pulmonary toxicity but pulmonology evaluation confirmed bilateral infiltrates seen on CT PET scan were most likely due to radiation-induced pneumonitis or chronic pulmonary changes not due to drug-related Follow-up CT PET scan done on April 30, 2020 showed no evidence of recurrence of disease but new left upper lobe paramediastinal infiltrate is FDG positive, likely inflammatory. Other new inflammatory appearing infiltrates are present in the medial right upper and superior segment of right lower lobe. The reactive prevascular mediastinal lymph node seen previously is now FDG negative As per pulmonology evaluation, these infiltrates are most likely due to radiation-induced pneumonitis or chronic pulmonary changes not drug-related Follow-up CT scan of the chest done on December 27, 2020 showed no increase in size of left paratracheal and medial left upper lobe soft tissue mass which is probably due to post radiation fibrosis. Stable 5 mm nodule in the lingula since December 04, 2019. No new mediastinal lymphadenopathy Plan: Discussed with patient regarding her labs white blood count 4.8 hemoglobin 10.1 hematocrit 30.8 platelets 238,000 CMP within normal limits except glucose 158 Clinically, patient is doing well, no new signs symptoms history of recurrence of her disease, as far as anemia is concerned, her follow-up labs shows persistent mild, but well compensated anemia, tolerating oral iron well, her follow-up lab work-up shows hemoglobin 10.1 g compared to 10.8 g, At this point, will consider adding B12 supplement every month and then she will return to clinic in 3 months with CBC CMP and follow-up CT scan of chest in the meantime she will continue monthly port maintenance Signed By: Ame Morgan M.D. <<Signature on File>>
== END 2021-05-31 09:04 | disposition home or self-care (01) ==
PROVIDERS: Visit Provider Internal Medicine Hematology & Oncology
DX: C33 Malignant neoplasm of trachea (principal); Z51.11 Encounter for antineoplastic chemotherapy; Z87.891 Personal history of nicotine dependence
CPT/HCPCS: 36591; 80053; 85025; 96372; 99214; J3420

== ENCOUNTER → 2021-06-27 13:45 | Outpatient (BNVA) | payer MEDICARE, MEDICAID, SELFPAY | PROVIDERS: PCP Internal Medicine Hematology & Oncology; Visit Provider Nurse Practitioner | DX: F43.12 Post-traumatic stress disorder, chronic (principal) | CPT/HCPCS: 99214 ==

== ENCOUNTER 2021-07-03 10:27 | Outpatient (CLI) | payer MEDICARE, MEDICAID, SELFPAY ==
[2021-07-03] MEDS: cyanocobalamin 1,000 mcg/mL SDV 1000 MCG SUBCUT (10:55)
== END 2021-07-03 10:28 | disposition home or self-care (01) ==
LOC: ONCMED 10:32
PROVIDERS: PCP Internal Medicine Hematology & Oncology; Visit Provider Nurse Practitioner
DX: C34.82 Malignant neoplasm of overlapping sites of left bronchus and lung (principal); D51.9 Vitamin B12 deficiency anemia, unspecified; Z79.899 Other long term (current) drug therapy
CPT/HCPCS: 36591; 96372; J3420

== ENCOUNTER 2021-08-03 11:29 | Outpatient (CLI) | payer MEDICARE, MEDICAID, SELFPAY ==
[2021-08-03] MEDS: cyanocobalamin 1,000 mcg/mL SDV 1000 MCG SUBCUT (12:17)
== END 2021-08-03 11:30 | disposition home or self-care (01) ==
PROVIDERS: PCP Internal Medicine Hematology & Oncology; Visit Provider Internal Medicine Hematology & Oncology
DX: E53.8 Deficiency of other specified B group vitamins (principal)
CPT/HCPCS: 96372; 96523; J3420

== ENCOUNTER → 2021-09-26 09:49 | Outpatient (BNVA) | payer MEDICARE, MEDICAID, SELFPAY | PROVIDERS: PCP Internal Medicine Hematology & Oncology; Visit Provider Nurse Practitioner | DX: F43.12 Post-traumatic stress disorder, chronic (principal) | CPT/HCPCS: 99214 ==

== ENCOUNTER 2021-09-28 15:17 | Outpatient (CLI) | payer MEDICARE, MEDICAID, SELFPAY ==
--- NOTE | 2021-09-28 15:28 | CT_ITS ---
WS: [id number] CT CHEST TECHNIQUE: Contrast enhanced CT of the chest with coronal and sagittal reformatted images. CLINICAL INFORMATION: MALIG NEOPLASM OF OVERLAPPING SITES LEFT BRONCHUS AND LUNG COMPARISON: CT chest May 02, 2020 December 27, 2020. Prior CTs August 2020 and November 2019[address] PET CT April 30, 2020 DLP: 584.[address] scans at [facility] use at least one of these dose optimization techniques: automated e xposure control; mA and/or kV adjustment per patient size (includes targeted exams where dose is matc hed to clinical indication); or iterative reconstruction. FINDINGS: Stable soft tissue mass involving the LEFT medial upper lobe and LEFT anterior mediastinum near the l malou apex. This is unchanged compared to the prior examinations. This measures approximately 3.5 x 2.6 x 4.0 cm unchanged. Continued partial encasement of the LEFT subclavian artery unchanged. LEFT subcl alberto artery remains patent. Stable noncalcified 5 mm nodule LEFT upper lobe. Lungs are well aerated. No acute pulmonary infiltrates. No focal pneumonia or pleural fluid. No progr essive lymphadenopathy. No axillary lymphadenopathy. CT/CT chest w con* [id number] IMPRESSION: 1. Stable medial LEFT upper lobe paramediastinal soft tissue mass likely due t o radiation fibrosis. This is unchanged since the prior examinations. 2. No progressive lymphadenopathy. 3. Stable 5 mm LEFT upper lobe pulmonary nodule.
[2021-09-28] MEDS: iohexol 300 mg/mL 100 mL Btl IV (15:55)
== END 2021-09-28 15:18 | disposition home or self-care (01) ==
LOC: RAD 15:21
PROVIDERS: PCP Internal Medicine Hematology & Oncology; Visit Provider Internal Medicine Hematology & Oncology
DX: C34.82 Malignant neoplasm of overlapping sites of left bronchus and lung (principal); R91.1 Solitary pulmonary nodule
CPT/HCPCS: 71260

== ENCOUNTER 2021-10-02 12:45 | Outpatient (CLI) | payer MEDICARE, MEDICAID, SELFPAY ==
[2021-10-02 13:36] LABS: Basophils % 0.3 %; Eosinophils # 0.2 10^3/uL (0.0-0.8); Eosinophils % 3.4 %; Hematocrit 33.7 % (37.0-47.0); Hemoglobin 11.1 g/dL (11.5-15.3); Lymphocytes # 1.5 10^3/uL (0.8-4.8); Lymphocytes % 23.2 %; Mean Corpuscular HGB Conc 32.9 g/dL (30.0-36.0); Mean Corpuscular Hemoglobin 29.5 pg (28.0-34.0); Mean Corpuscular Volume 89.6 fl (81-99); Mean Platelet Volume 8.9 fL (7.4-10.4); Monocytes # 0.6 10^3/uL (0.2-0.9); Monocytes % 8.5 %; Neutrophils # 4.18 10^3/uL (1.8-7.7); Neutrophils % 64.3 %; Nucleated Red Blood Cells % 0 %; Platelet Count 206 10^3/cmm (130-400); Red Blood Count 3.76 10^6/uL (4.1-5.3); Red Cell Distribution Width 12.7 % (12.1-15.1); White Blood Count 6.5 10^3/uL (4.0-10.0)
[2021-10-02 13:56] LABS: Alanine Aminotransferase 13 U/L (0-33); Alkaline Phosphatase 82 IU/L (35-105); Anion Gap 14.8 (5-19); Aspartate Amino Transferase 17 U/L (0-32); Blood Urea Nitrogen 20 mg/dL (6-20); Calcium 9.4 mg/dL (8.5-10.5); Carbon Dioxide 25 mmol/L (22-29); Chloride 101 mmol/L (98-107); Ferritin 150 ng/mL (15-150); Globulin 3.5 g/dL (1.3-4.6); Glomerular Filtration Rate 104.6 mL/min (90-130); Glucose 118 mg/dL (65-115); Iron 56 ug/dL (37-145); Osmolality Calculated 288 mOsm/kg (285-295); Percent Saturation 18.9 % (20-50); Potassium 3.8 mmol/L (3.5-5.1); Sodium 137 mmol/L (136-145); Total Bilirubin 0.2 mg/dL (0.15-1.2); Total Iron Binding Capacity 296 mcg/dl; Total Protein 7.5 g/dL (6.6-8.7); Unsaturated Iron Binding 240 ug/dL (112-347)
[2021-10-02 14:10] LABS: Vitamin B12 420 pg/mL (232-1245)
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
== END 2021-10-02 12:46 | disposition home or self-care (01) ==
PROVIDERS: PCP Internal Medicine Hematology & Oncology; Visit Provider Nurse Practitioner Family
DX: C34.92 Malignant neoplasm of unspecified part of left bronchus or lung (principal); C78.01 Secondary malignant neoplasm of right lung; Z87.891 Personal history of nicotine dependence; D50.9 Iron deficiency anemia, unspecified
CPT/HCPCS: 36591; 80053; 82607; 82728; 83540; 83550; 85025; 99214

== ENCOUNTER → 2021-10-04 10:04 | Outpatient (BNVA) | payer MEDICARE, MEDICAID, SELFPAY | PROVIDERS: PCP Internal Medicine Hematology & Oncology; Visit Provider Specialist | DX: M84.552S Pathological fracture in neoplastic disease, left femur, sequela (principal); Z87.891 Personal history of nicotine dependence; Z98.890 Other specified postprocedural states | CPT/HCPCS: 73502; 99213; 99214 ==

== ENCOUNTER 2021-11-01 14:07 | Oncology outpatient (recurring) (ONCR) | payer MEDICARE, MEDICAID, SELFPAY | END 2021-11-14 23:59 | disposition home or self-care (01) | PROVIDERS: PCP Internal Medicine Hematology & Oncology; Visit Provider Internal Medicine Hematology & Oncology | DX: C34.92 Malignant neoplasm of unspecified part of left bronchus or lung (principal) | CPT/HCPCS: 96523 ==

== ENCOUNTER 2021-11-16 13:55 | Inpatient (IN) | payer MEDICARE, MEDICAID, SELFPAY ==
[2021-11-16] VITALS (8 sets, daily range): BP systolic 116–133; BP diastolic 60–75; PULSE 75–93; RESP 14–18; TEMP 36.6–37.1; O2SAT 95–100
--- NOTE | 2021-11-16 14:08 | W.ED.LOWEXIN ---
Documented by User: ANDREW Paulson 11/21/21 07:23 HPI - Extremity Injury (Lower) General: Chief Complaint: Extremity Injury, Lower Stated Complaint: L KNEE PAIN/ FALL Time Seen by Provider: 11/16/21 13:59 Source: patient and EMS Mode of arrival: EMS Limitations: no limitations History of Present Illness: Patient is a 51-year-old female presents to ED today with a complaint of knee pain following a fall. Patient states she fell yesterday evening after tripping over her dog. Patient states she has a left femoral kari (placed in 2019 due to pathologic fracture) in which the hardware has loosened and was told there is an impacted fracture there as well. Patient states she saw Dr. Terry for this in September and was supposed to have a CT scan performed however had issues with central scheduling and reports I let it slip through the cracks and never followed up. Patient states she is ambulatory normally with the help of a cane. Has had to use crutches since the fall. Patient denies any other injuries or complaints related to the recent fall. PMH for COPD, hepatitis C, and stage IV lung cancer being followed by Dr. Morgan-reportedly told this is stable/remission. She is not currently undergoing chemo/radiation. She is not on anticoagulation. MD complaint: thigh injury, knee injury and leg injury Onset (ago): day(s) (yesterday evening) Place: home Severity: moderate Relieving factors: immobilization Exacerbating factors: weight bearing, movement and palpation Context: fall Other symptoms: none Review of Systems Card: Denies: chest pain Resp: Denies: dyspnea GI: Denies: abdominal pain Musc: Reports: extremity pain (L LE), joint pain (L knee) and joint swelling (L knee); Denies: neck pain, back pain, joint redness or joint warmth Neuro: Denies: numbness in extremities or sensory changes PFS ED PFSH: Medical History Cannabis dependence, in remission Depression with anxiety Hepatitis C Lung cancer Other stimulant dependence, in remission Post-traumatic stress disorder, chronic Psychiatric care Restless legs syndrome Social History Smoking and tobacco status: former smoker Quit status (tobacco): has quit using tobacco Year quit tobacco: 2019 - 1PPD x 25 Years Smoking risk assessment/counseling performed?: No Alcohol intake: never Desire information about alcohol rehabilitation?: No Counseling given: No Desire information about substance/drug rehabilitation?: No Counseling given: No Lives independently: Yes Household members: none Marital status: Unknown Current occupational status: disabled History of recent travel: No Current gender identity: Female Physical Exam Const: COMMON NORMALS: no acute distress, patient oriented x3, no limitations and alert GENERAL APPEARANCE: cooperative ORIENTATION/CONSCIOUSNESS: Yes awake, Yes oriented to person, Yes oriented to place and Yes oriented to time HENMT: COMMON NORMALS: normocephalic and atraumatic HEAD & SCALP: normal to inspection, normocephalic and atraumatic Neck/C-Spine: COMMON NORMALS: full ROM GENERAL: Yes normal visual inspection CERVICAL SPINE: No pain with cervical ROM, No Cervical spine tenderness, No step off deformity and No Paracervical muscle tenderness Back/Pelvis: COMMON NORMALS: thoracic and lumbar spine normal to inspection, no thoracic nor lumbar tenderness and thoraco-lumbar ROM normal Extremity: COMMON NORMALS: capillary refill normal, no calf tenderness and no pedal edema LEFT LOWER EXTREMITY: Yes upper leg, Yes knee joint and Yes lower leg OTHER: pt has tenderness throughout lower femur into knee and tib/fib; most of her discomfort seems to be arising from her knee joint and distal femur; she is visibly swollen here; she states she normally does have some degree of swelling to the extremity but feels swelling around knee joint/lower femur is slightly worse; distal pulses intact; no color/temp changes to extremity; sensation intact Neuro: BRIT COMA SCALE: document GCS findings Brit coma scale eye opening: Spontaneous [place] coma scale verbal response: Orientated Brit coma scale motor response: Obey commands [place] coma scale total score: 15 COMMON NORMALS: patient oriented x3, moves all extremities, no focal motor deficits and no sensory deficits noted SENSORIUM/ORIENTATION: Yes alert, Yes oriented to person, Yes oriented to place and Yes oriented to time Skin: TRAUMA: no lacerations or abrasions Course Consultations: Consultation #1: Dr. Terry-admit to hospitalist, plan for OR tomorrow evening Vital Signs: Vital signs: Vital Signs Temperature 98.4 F 11/21/21 04:00 Pulse Rate 78 11/21/21 05:29 Respiratory Rate 16 11/21/21 04:37 Blood Pressure 116/73 11/21/21 04:00 Pulse Oximetry 90 11/21/21 04:00 MDM - Extremity Injury (Lower) Medical Decision Making Patient's distal femoral kari is now extending outside the anterior bony cortex when compared to films performed in September. I have spoken to Dr. Trery who requests we admit patient to hospitalist with plan for her to do surgery tomorrow late afternoon. NPO after midnight. Chart reviewed and patient discussed with midlevel. Agree with assessment and plan. Discussed with Dr. Lo. Orders written. Lab Data : 11/20/21 17:58 11/20/21 03:34 Radiology Impressions Knee X-Ray 11/16/21 14:13 IMPRESSION: Acute or subacute on chronic distal femoral fractures with fractured displaced distal fixation screws and displaced intramedullary kari protruding through the anterior cortex of the femur. The tip of the kari lies 6 mm above the patella, possibly within the joint. Tibia/Fibula X-Ray 11/16/21 14:13 IMPRESSION: 1. Intact lower leg. 2. Femoral intramedullary kari protrudes through the anterior cortex of the distal femur just above the patella. Findings suggest distal femoral fracture of indeterminate acuity. Chest X-Ray 11/16/21 17:21 IMPRESSION: No acute finding. Femur X-Ray 11/17/21 21:23 IMPRESSION: 1. Fixation hardware appears intact. 2. Prominent soft tissue swelling overlying the left hip with expected postsurgical subcutaneous emphysema. Discharge Plan Discharge Patient Disposition: Admitted As Inpatient Admit Provider: Jason Lo Clinical Impression: Closed femur fracture, Lung cancer, COPD (chronic obstructive pulmonary disease) Pathological fracture of femur Qualifiers: Pathology associated with fracture: neoplastic disease Encounter type: sequela Laterality: left Qualified Code(s): M84.552S - Pathological fracture in neoplastic disease, left femur, sequela Condition: Stable Discharge Diet: Advance as tolerated and Usual diet Discharge Activity: Limit activity as instructed, Use walker/crutches as instructed and As per PT/OT instructions Coding Level of Care Code ED Manufacturing Sr Engineer for Chg Fwd Exam Detailed Documented by User: Larry Hebert DO 11/16/21 17:40 HPI - Extremity Injury (Lower) General: Chief Complaint: Extremity Injury, Lower Stated Complaint: L KNEE PAIN/ FALL Time Seen by Provider: 11/16/21 13:59 PFSH ED PFSH: Medical History Cannabis dependence, in remission Depression with anxiety Hepatitis C Lung cancer Other stimulant dependence, in remission Post-traumatic stress disorder, chronic Psychiatric care Restless legs syndrome Social History Smoking and tobacco status: former smoker Quit status (tobacco): has quit using tobacco Year quit tobacco: 2019 - 1PPD x 25 Years Smoking risk assessment/counseling performed?: No Alcohol intake: never Desire information about alcohol rehabilitation?: No Counseling given: No Desire information about substance/drug rehabilitation?: No Counseling given: No Lives independently: Yes Household members: none Marital status: Unknown Current occupational status: disabled History of recent travel: No Current gender identity: Female Physical Exam Neuro: BRIT COMA SCALE: document GCS findings Brit coma scale total score: 15 Course Vital Signs: Vital signs: Vital Signs Temperature 98.4 F 11/21/21 04:00 Pulse Rate 78 11/21/21 05:29 Respiratory Rate 16 11/21/21 04:37 Blood Pressure 116/73 11/21/21 04:00 Pulse Oximetry 90 11/21/21 04:00 MDM - Extremity Injury (Lower) Medical Decision Making Patient's distal femoral kari is now extending outside the anterior bony cortex. I have spoken to Dr. Terry who requests we admit patient to hospitalist with plan for her to do surgery tomorrow late afternoon. NPO after midnight. Chart reviewed and patient discussed with midlevel. Agree with assessment and plan. Discussed with Dr. Lo. Orders written. Medical Records I reviewed the patient's medical records. Lab Data I reviewed the patient's lab results. : 11/20/21 17:58 11/20/21 03:34 Radiology Impressions Knee X-Ray 11/16/21 14:13 IMPRESSION: Acute or subacute on chronic distal femoral fractures with fractured displaced distal fixation screws and displaced intramedullary kari protruding through the anterior cortex of the femur. The tip of the kari lies 6 mm above the patella, possibly within the joint. Tibia/Fibula X-Ray 11/16/21 14:13 IMPRESSION: 1. Intact lower leg. 2. Femoral intramedullary kari protrudes through the anterior cortex of the distal femur just above the patella. Findings suggest distal femoral fracture of indeterminate acuity. Chest X-Ray 11/16/21 17:21 IMPRESSION: No acute finding. Femur X-Ray 11/17/21 21:23 IMPRESSION: 1. Fixation hardware appears intact. 2. Prominent soft tissue swelling overlying the left hip with expected postsurgical subcutaneous emphysema. Discharge Plan Discharge Patient Disposition: Admitted As Inpatient Admit Provider: Jason Lo Clinical Impression: Closed femur fracture, Lung cancer, COPD (chronic obstructive pulmonary disease) Pathological fracture of femur Qualifiers: Pathology associated with fracture: neoplastic disease Encounter type: sequela Laterality: left Qualified Code(s): M84.552S - Pathological fracture in neoplastic disease, left femur, sequela Condition: Stable Discharge Diet: Advance as tolerated and Usual diet Discharge Activity: Limit activity as instructed, Use walker/crutches as instructed and As per PT/OT instructions Coding Level of Care Code ED Manufacturing Sr Engineer for [employer] Fwd Exam Detailed
--- NOTE | 2021-11-16 14:13 | XRR_ITS ---
PROCEDURE INFORMATION: Exam: XR Left Knee Exam date and time: 11/16/2021 2:19 PM Age: 51 years old Clinical indication: Injury or trauma; Blunt trauma; Knee; Injury details: History--dog leash got wrapped around foot and caused a fall, pain on the left side lower extremity; Prior surgery; Additional info: Trauma/injury TECHNIQUE: Imaging protocol: XR Left knee. Views: 3 views. COMPARISON: CR XR ankle LT min 3V* [id number] 03/28/2020 2:02 PM FINDINGS: Bones/joints: There is lucency surrounding the distal margin of the femoral intramedullary kari. There are fractured displaced distal fixation screws associated with a comminuted femoral fracture with indistinct fracture margins and periosteal new bone formation in the distal femur beyond the site of a chronic distal diaphyseal fracture visible on 07/27/2019. The chronic distal diaphyseal fracture demonstrates progressive marked periosteal new bone formation and/or heterotopic ossification. Knee alignment is normal. Joint spaces are preserved. No large joint effusion is visible. The distal margin of the femoral intramedullary kari protrudes through the anterior femoral cortex 6 mm above the patella. Soft tissues: Normal. XR/XR knee LT 3V* [id number] IMPRESSION: Acute or subacute on chronic distal femoral fractures with fractured displaced distal fixation screws and displaced intramedullary kari protruding through the anterior cortex of the femur. The tip of the kari lies 6 mm above the patella, possibly within the joint.
--- NOTE | 2021-11-16 14:13 | XRR_ITS ---
PROCEDURE INFORMATION: Exam: XR Left Femur Exam date and time: 11/16/2021 2:19 PM Age: 51 years old Clinical indication: Injury or trauma; Blunt trauma; Thigh or upper leg; Injury details: History--dog leash got wrapped around foot and caused a fall, pain on the left side lower extremity; Prior surgery; Additional info: Injury, previous abnormalities to hardware/impaction FX TECHNIQUE: Imaging protocol: XR Left femur. Views: 2 views. COMPARISON: CR XR femur LT min 2V* [id number] 07/27/2019 10:54 AM FINDINGS: Bones/joints: Hip alignment is normal. The visible portion of the pelvis is intact. There is intact intramedullary kari and dynamic compression screw fixation of the femoral neck. There is a chronic distal femoral diaphyseal fracture with increased displacement since 07/27/2019. The fracture line is no longer visible. There is bulky periosteal new bone formation posteriorly. Cortical margins are overriding by approximately 2 cm posteriorly. There are fractured and displaced distal fixation screws. This finding is new since 07/27/2019. There is lucency surrounding the distal portion of the intramedullary kari and protrusion of the kari through the anterior cortex of the distal femur just above the patella. There is diffuse smooth periosteal reaction along the distal femur. There is indistinct transverse lucency through the distal femoral diaphysis between the heads of the distal fixation screws. Soft tissues: Unremarkable. XR/XR femur LT min 2V* [id number] IMPRESSION: 1. Progressive displacement and overriding of fracture fragments involving a healed mid femoral diaphyseal fracture at the site of a previously nondisplaced fracture since 2019. 2. Acute or subacute on chronic fracture of the distal femoral diaphysis with associated fractures and displacement of fixation screws in the distal femur. 3. Displacement of the intramedullary kari through the anterior cortex of the distal femur is likely chronic, related to displacement of the (now healed) mid femoral diaphyseal fracture subsequent to intramedullary kari placement. The tip of the intramedullary kari lies just above the patella, possibly restricting knee extension.
--- NOTE | 2021-11-16 14:13 | XRR_ITS ---
PROCEDURE INFORMATION: Exam: XR Left Tibia and Fibula Exam date and time: 11/16/2021 2:19 PM Age: 51 years old Clinical indication: Injury or trauma; Fall; Blunt trauma; Lower leg; Prior surgery; Patient HX: Left and right upper legs; Additional info: Trauma/injury TECHNIQUE: Imaging protocol: XR Left tibia and fibula. Views: 2 views. COMPARISON: CR XR ankle LT min 3V* [id number] 03/28/2020 2:02 PM FINDINGS: Bones/joints: Alignment at the knee and ankle is normal. The tibia and fibula are intact. There is an intramedullary kari in the distal femur which protrudes through the anterior cortex just above the patella. Soft tissues: Normal. XR/XR tibia fibula LT 2V [id number] IMPRESSION: 1. Intact lower leg. 2. Femoral intramedullary kari protrudes through the anterior cortex of the distal femur just above the patella. Findings suggest distal femoral fracture of indeterminate acuity.
[2021-11-16] MEDS: morphine 4 mg/mL SDV 1 mL IM (16:47)
--- NOTE | 2021-11-16 17:21 | XRR_ITS ---
PROCEDURE INFORMATION: Exam: XR Chest Exam date and time: 11/16/2021 5:29 PM Age: 51 years old Clinical indication: Pain; Other: Lt knee; Prior surgery; Surgery date: 6+ months; Surgery type: Port; Additional info: Admit, surg clearance, leg injury TECHNIQUE: Imaging protocol: XR of the chest. Views: 1 view. COMPARISON: CT chest w con* [id number] 09/28/2021 3:46 PM FINDINGS: Tubes, catheters and devices: Left subclavian Wemapp-O-Nhvv with tip over the distal SVC. Lungs: Changes of emphysema. The lungs are clear. No consolidation. Pleural spaces: Left apical pleural scarring. No pneumothorax. Heart/Mediastinum: Unremarkable. No cardiomegaly. Bones/joints: C-spine fusion hardware. XR/XR chest 1V portable [id number] IMPRESSION: No acute finding.
--- NOTE | 2021-11-16 17:21 | ECG_ITS ---
[facility] Test Date: 2021-11-16 Pat Name: Tracy Melton Department: Room: Gender: Female Doper: : 1970 Requested By: Claribel Curran Order Number: [id number] Shara MD: Shelton Sharma M.D. Measurements Intervals [place] Rate: 75 P: 59 MS: 178 QRS: 7 QRSD: 99 T: 12 QT: 332 QTc: 372 Interpretive Statements SINUS RHYTHM WITH MARKED SINUS ARRHYTHMIA LOW QRS VOLTAGE IN PRECORDIAL LEADS [QRS DEFLECTION < 1.0 mV IN CHEST LEADS] INCOMPLETE RIGHT BUNDLE BRANCH BLOCK [90+ ms QRS DURATION, TERMINAL R IN V1/V2, 40+ ms S IN I/aVL/V4/V5/V6] No previous ECG available for comparison Electronically Signed On 11-17-2021 22:39:50 CDT by Shelton Sharma M.D. [email or web address]
--- NOTE | 2021-11-16 17:44 | P.HP_ITS ---
Providers/Chief Complaint Admitting Physician: Jason Lo MD Primary Care Provider: Ame Morgan MD Chief Complaint: L KNEE PAIN/ FALL History of Present Illness Tracy Melton is a 51 year old female With stage IV lung cancer presents after fall and has a pathological fracture of the mid to distal femoral shaft with findings consistent with malignancy. Patient had a femur fracture 3 years ago which was when she found out she had cancer in her femur originating in the lung. Today she was walking her dog when the dog took off after another dog and pulled her over left leg had already been shorter because of shifting of the kari but this made it much worse. She lives with her . Patient sees Dr. Morgan for cancer and recently disabled following diagnosis of cancer 3 years ago. She does not smoke or drink alcohol. She denies chest pain or shortness of breath. She wants to be full code Review of Systems Narrative: General no fevers chills weight loss she has had some weight gain from eating poorly. Cardiovascular no chest pain palpitations or edema respiratory no shortness of breath cough wheezing GI no nausea vomiting diarrhea constipation melena hematochezia Heme no bleeding disorder or clotting disorders Psych ok Neuro no history of seizures or stroke Muscle skeletal she has pain in her left leg Medications/Allergies Home Medications Medication Instructions Recorded Confirmed Last Taken Type aspirin 81 mg tablet,delayed 81 mg PO DAILY 10/27/19 10/04/21 Unknown History release (Adult Aspirin Regimen) albuterol sulfate 90 mcg/actuation 2 puff INHALATION QID PRN 30 Days 09/25/21 10/04/21 Unknown Rx aerosol inhaler #8.5 g aripiprazole 5 mg tablet (Abilify) 5 mg PO DAILY #90 tab 09/26/21 10/04/21 Unknown Rx bupropion HCl 300 mg 24 hr tablet, 300 mg PO QAM #90 tab 09/26/21 10/04/21 Unknown Rx extended release (Wellbutrin XL) sertraline 100 mg tablet (Zoloft) 200 mg PO DAILY #180 tab 09/26/21 10/04/21 Unknown Rx glycopyrrolate 9 mcg-formoterol 2 puff INHALATION BID 100 Days 09/29/21 10/04/21 Unknown Rx 4.8 mcg HFA aerosol inhaler #10.7 g (Bevespi Aerosphere) hydrocodone 7.5 mg-acetaminophen 1 tab PO Q8H PRN 30 Days #90 tab 05/18/22 Unknown Rx 325 mg tablet Allergies Allergy/AdvReac Type Severity Reaction Status Date / Time sulfamethoxazole Allergy Unknown Verified 10/04/21 10:55 [From Bactrim] trimethoprim [From Bactrim] Allergy Unknown Verified 10/04/21 10:55 PFSH Acute PFSH: Medical History Cannabis dependence, in remission Depression with anxiety Hepatitis C Lung cancer Other stimulant dependence, in remission Post-traumatic stress disorder, chronic Psychiatric care Restless legs syndrome Social History Smoking and tobacco status: former smoker Quit status (tobacco): has quit using tobacco Year quit tobacco: 2019 - 1PPD x 25 Years Smoking risk assessment/counseling performed?: No Alcohol intake: never Desire information about alcohol rehabilitation?: No Counseling given: No Desire information about substance/drug rehabilitation?: No Counseling given: No Lives independently: Yes Household members: none Marital status: Unknown Current occupational status: disabled History of recent travel: No Current gender identity: Female Vitals/I&O/Wt Last Vital Signs Temp 98.8 F 11/16/21 14:04 Pulse 75 11/16/21 16:12 Resp 15 11/16/21 14:04 BP 133/72 11/16/21 16:12 Pulse Ox 96 11/16/21 16:12 Physical Exam Narrative: General well-developed well-nourished female in no acute cardiopulmonary stress she is alert oriented pleasant CV regular rate and rhythm Lungs clear to auscultation bilaterally Abdomen positive bowel sounds soft nontender Leg left leg is shortened and minimally externally rotated. Mentation normal Skin warm and dry Psych mood and affect are normal Miscellaneous she has a left upper chest port A&P Assessment and plan (1) Closed femur fracture: Patient had a femur fracture 3 years ago which was when she found out she had cancer in her femur originating in the lung. Today she was walking her dog when the dog took off after another dog and pulled her over left leg had already been shorter because of shifting of the kari but this made it much worse. Dr. Stephens plans to repair tomorrow afternoon. We will treat with low-dose Lovenox 40 mg subcu daily Status: Acute (2) Lung cancer: Stable not curable but not actively dying Status: Acute (3) COPD (chronic obstructive pulmonary disease): Stable patient is not on oxygen and states her breathing is good lung exam is reassuring Status: Acute (4) Hepatitis C: Stable we will obtain baseline labs Status: Acute Qualifiers: Viral hepatitis chronicity: chronic Hepatic coma status: without hepatic coma Qualified Code(s): B18.2 - Chronic viral hepatitis C Attestations Medical Necessity Statement*: Patient is admitted to the hospital for pain control and preparation for ORIF left femur distal pathologic fracture Time Spent in Patient Care: Greater than 35 minutes 55 minutes spent in evaluation coronation care for this patient today Coding Level of Care Code Acute Irrigation Service Technician for [facility] Fwd Diagnoses Closed femur fracture S72.90XA Lung cancer C34.90 COPD (chronic obstructive pulmonary disease) J44.9 Hepatitis C B18.2 Viral hepatitis chronicity: chronic Hepatic coma status: without hepatic coma
--- NOTE | 2021-11-16 17:58 | PM.MISC ---
Miscellaneous Note Purpose of Documentation: Preop discussion and planning Note: I have reviewed the patient's imaging studies. There is a fracture through the anterior cortex from her trochanteric nail. This will require removal of her trochanteric nail with subsequent supracondylar plate. Plans are to place this tomorrow. We will obtain biopsy of the area and also plan to bone graft. This is been discussed with the field marketing representative from [email or web address], and appropriate instrumentation is available. I will see the patient tomorrow to discuss her surgical procedure in detail.
[2021-11-16 18:57] LABS: Basophils % 0.3 %; Eosinophils # 0.2 10^3/uL (0.0-0.8); Eosinophils % 2.5 %; Hematocrit 31.1 % (37.0-47.0); Hemoglobin 10.6 g/dL (11.5-15.3); Lymphocytes # 1.2 10^3/uL (0.8-4.8); Lymphocytes % 18.2 %; Mean Corpuscular HGB Conc 34.1 g/dL (30.0-36.0); Mean Corpuscular Hemoglobin 29.9 pg (28.0-34.0); Mean Corpuscular Volume 87.6 fl (81-99); Mean Platelet Volume 8.9 fL (7.4-10.4); Monocytes # 0.8 10^3/uL (0.2-0.9); Monocytes % 11.5 %; Neutrophils # 4.47 10^3/uL (1.8-7.7); Neutrophils % 66.9 %; Nucleated Red Blood Cells % 0 %; Platelet Count 212 10^3/cmm (130-400); Red Blood Count 3.55 10^6/uL (4.1-5.3); Red Cell Distribution Width 13.1 % (12.1-15.1); White Blood Count 6.7 10^3/uL (4.0-10.0)
[2021-11-16 19:16] LABS: Alanine Aminotransferase 8 U/L (0-33); Albumin Level 3.7 g/dL (3.5-5.2); Alkaline Phosphatase 71 IU/L (35-105); Anion Gap 14.3 (5-19); Aspartate Amino Transferase 11 U/L (0-32); Blood Urea Nitrogen 11 mg/dL (6-20); Calcium 8.9 mg/dL (8.5-10.5); Carbon Dioxide 25 mmol/L (22-29); Chloride 99 mmol/L (98-107); Globulin 3.3 g/dL (1.3-4.6); Glucose 98 mg/dL (65-115); Osmolality Calculated 279 mOsm/kg (285-295); Potassium 3.3 mmol/L (3.5-5.1); Sodium 135 mmol/L (136-145); Total Bilirubin 0.3 mg/dL (0.15-1.2)
[2021-11-16 20:50] LABS: Add Urine Culture? No; Add Urine Microscopic? YES; Bacteria Urine TRACE /hpf; Bilirubin Urine Neg (Negative); Blood Urine Neg (Negative); Glucose Urine UA Norm (Normal); Ketones Urine Negative (Negative); Leukocyte Esterase Urine 2+ (Negative); Mucus Urine 2+ /hpf; Nitrate Urine Negative (Negative); Protein Urine Neg (Negative); RBC Urine 0-4 /hpf (0-2); Squamous Epithelial Cell Urine 0-4 /hpf (0-5); Urine Appearance Clear (CLEAR); Urine Color Yellow (Yellow); Urobilinogen Urine 1 mg/dL (Negative); pH Urine 5 (5-7)
[2021-11-16] MEDS: D5-NS 0.45% + KCL 20 mEq 20 MEQ/1,000 ML BAG 75 MEQ IV (20:50)
[2021-11-16] MEDS: morphine 4 mg/mL SDV 1 mL 2 MG IVP (20:50)
[2021-11-16] MEDS: enoxaparin 40 mg/0.4 mL Syringe SUBCUT (20:51)
[2021-11-17] VITALS (20 sets, daily range): BP systolic 114–140; BP diastolic 59–90; PULSE 66–94; RESP 14–84; TEMP 36.3–37.4; O2SAT 90–100
--- NOTE | 2021-11-17 | SCC_ITS ---
Procedure done: Removal long trochanteric nail, takedown nonunion, lateral femoral supracondylar plate for open reduction internal fixation 371.8 seconds of fluoroscopic guidance, for a cumulative dose of 18.51 mGy, was provided to Dr. Terry by the radiology department. C-arm images of the LEFT femur were saved for the patient's permanent record. [facility]
[2021-11-17] MEDS: morphine 4 mg/mL SDV 1 mL IVP ×2 (00:40→08:00)
[2021-11-17 02:38] LABS: Basophils % 0.3 %; Eosinophils # 0.2 10^3/uL (0.0-0.8); Eosinophils % 3.1 %; Hemoglobin 10.4 g/dL (11.5-15.3); Lymphocytes # 1.3 10^3/uL (0.8-4.8); Lymphocytes % 20.6 %; Mean Corpuscular HGB Conc 32.5 g/dL (30.0-36.0); Mean Corpuscular Hemoglobin 29.2 pg (28.0-34.0); Mean Corpuscular Volume 89.9 fl (81-99); Mean Platelet Volume 9.3 fL (7.4-10.4); Monocytes # 0.9 10^3/uL (0.2-0.9); Monocytes % 13.6 %; Neutrophils # 4.01 10^3/uL (1.8-7.7); Neutrophils % 61.8 %; Nucleated Red Blood Cells % 0 %; Platelet Count 234 10^3/cmm (130-400); Red Blood Count 3.56 10^6/uL (4.1-5.3); Red Cell Distribution Width 13.2 % (12.1-15.1); White Blood Count 6.5 10^3/uL (4.0-10.0)
[2021-11-17 03:07] LABS: Alanine Aminotransferase 8 U/L (0-33); Albumin Level 3.8 g/dL (3.5-5.2); Alkaline Phosphatase 79 IU/L (35-105); Anion Gap 12.4 (5-19); Aspartate Amino Transferase 11 U/L (0-32); Blood Urea Nitrogen 10 mg/dL (6-20); Carbon Dioxide 28 mmol/L (22-29); Chloride 100 mmol/L (98-107); Globulin 3.1 g/dL (1.3-4.6); Glucose 118 mg/dL (65-115); Magnesium 1.7 mg/dL (1.7-2.3); Osmolality Calculated 284 mOsm/kg (285-295); Phosphorus 4.1 mg/dL (2.5-4.5); Potassium 3.4 mmol/L (3.5-5.1); Sodium 137 mmol/L (136-145); Total Bilirubin 0.3 mg/dL (0.15-1.2); Total Protein 6.9 g/dL (6.6-8.7)
[2021-11-17] MEDS: pantoprazole DR 40 mg Tablet PO (07:59)
--- NOTE | 2021-11-17 09:40 | PC.CHAP ---
Pastoral Care Encounter/Spiritual Assessment Type of Contact [] Declined brake specialist visit [] Patient/Family/Request visit [] Outpatient visit [] Follow-up visit [] Physician referral [] Code/Alert []x Routine visit [] Staff referral [] Actively dying [] Patient sleeping [] Family support [] [] Out of room [] Palliative care [] [] Receiving care in room [] Pre-surgical visit [] Trauma [] Long length of stay [] ICU visit [] Other: Relational/Emotional Strength [x] Patient feels connected with others/family/visitors/staff [] Distress [] Loneliness/isolation [] Abandonment Spirituality of Patient [x] Person of Allison [] Attends Sikh of their Allison [x] Believes in Prayer [] Reads Bible or Judaism materials [] There are Spiritual issues to be addressed Transformer Mechanic Interventions [x] Prayer [x] Active listening []x Non-anxious presence [x] Spiritual/emotional support [] Crisis/trauma care [] Spiritual counseling [] Bereavement support [] Provided bereavement packet [] Provided Bible/devotional materials [] Provided toy/stuffed animal, coloring book to patient or family member [] Provided Communion [] Anointing/[place] [] Salvation [x] Completed spiritual assessment [] Other: Impact on Illness or Injury [] Angry [] Fearful [] Anxious [] Often cries [] Exhaustion [] Unable to work [] Unable to attend hoahaoism [] Unable to walk/stand [] Unable to read [] Unable to drive [] Unable to eat/drink [] Unable to sleep [] Unable to be with family [] Patient intubated [] Other: Summary patient in alot of pain Time spent with patient 10 min
[2021-11-17] MEDS: D5-NS 0.45% + KCL 20 mEq 20 MEQ/1,000 ML BAG 75 MEQ IV ×2 (10:07→22:29)
[2021-11-17] MEDS: acetaminophen 1,000 MG/100 ML PIGGYBACK 400 MG IV ×2 (13:57→22:30)
[2021-11-17] MEDS: sodium chloride 0.9% 1,000 ML 30 ML IV (13:57)
--- NOTE | 2021-11-17 14:01 | P.PN_ITS ---
Subjective Subjective: Patient's labs were stable including her liver enzyme Vitals/I&O/Wt Last Vital Signs Temp 97.9 F 11/17/21 13:02 Pulse 88 11/17/21 13:02 Resp 16 11/17/21 13:02 BP 135/75 11/17/21 13:02 Pulse Ox 93 11/17/21 13:02 11/16/21 11/17/21 11/17/21 22:59 06:59 14:59 Intake Total 360 / 360 996.25 / 996.25 Output Total 310 / 310 Balance 360 / 360 -310 / 50 996.25 / 996.25 Physical Exam Narrative: I missed seeing the patient today as she has gone to surgery Urinary Catheter Management: Diaz: Cath Placed During This Visit: yes Reason for Continuing Indwelling Catheter: Required Immobilization for Trauma or Surgery or Anesthesia Urinary Catheter Date of Insertion: 11/16/21 Urinary Catheter Time of Insertion: 23:59 Data : 11/17/21 02:03 11/17/21 02:03 A&P Assessment and plan (1) Closed femur fracture: Patient had a femur fracture 3 years ago which was when she found out she had cancer in her femur originating in the lung. Today she was walking her dog when the dog took off after another dog and pulled her over left leg had already been shorter because of shifting of the kari but this made it much worse. Dr. Stephens has the patient in surgery currently We will treat with low-dose Lovenox 40 mg subcu daily Status: Acute (2) Lung cancer: Stable not curable but not actively dying Status: Acute (3) COPD (chronic obstructive pulmonary disease): Stable patient is not on oxygen and states her breathing is good lung exam is reassuring Status: Acute (4) Hepatitis C: Stable labs Status: Acute Qualifiers: Viral hepatitis chronicity: chronic Hepatic coma status: without hepatic coma Qualified Code(s): B18.2 - Chronic viral hepatitis C Attestations Medical Necessity Statement*: Will need recovery for her left femur repair and potentially placement in rehab Coding Level of Care Code 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
--- NOTE | 2021-11-17 14:05 | P.ANESASSM_ITS ---
Pre-Anesthetic Assessment Height/Weight: Height 1.63 m Temp Pulse Resp BP Pulse Ox 97.9 F 88 16 135/75 93 11/17/21 13:02 11/17/21 13:02 11/17/21 13:02 11/17/21 13:02 11/17/21 13:02 Preop Diagnosis: Distal femur fracture, nonunion, left femur Operation Date: 11/17/21 14:40 Proposed Procedures p ORIF Femur(Left) - Emily Terry MD Familial anesthetic complications: none Was Beta Abimael taken within 24 hours: N/A Was Clonidine taken within 24 hours: N/A Last intake: Intake Last Liquid Date 11/16/21 Last Liquid Time 23:30 Last Solid Date 11/16/21 Last Solid Time 23:30 Social No alcohol and No tobacco Cannabis use Exam alert, oriented x 3, clear to auscultation bilaterally and regular rate & rhythm Airway Submandibular: within normal limits Cervical ROM: within normal limits Mallampati: Class II Dentition: false History/ROS No significant complaints Pulmonary Lung cancer CV/HEM Anemia METS > 4 Potassium 3.4 Hepatic Hepatitis (C) GI None reported Metabolic None reported Musc/skel Femur fx Neuropsych Anxiety and Depression PTSD Anesthetic Plan ASA status: 3 (51 year old female with hx of former smoking, lung cancer, hepatitis C , PTSD, RLS, and cannabis use with fracture of hip ) Anesthesia: Anesthesia Evaluation and General Other: We discussed risk and benefits of general anesthesia including PONV, sore throat (sometimes severe), corneal abrasion, positioning and peripheral nerve injuries, life threatening allergic reaction, post operative ICU admission requiring prolonged intubation, stroke, heart attack, , and rare incidences of recall. Patient consents to proceed with general anesthesia. Risk of > 500 ml blood loss (7ml/kg in children): No Medications/Allergies Home Medications Medication Instructions Recorded Confirmed Last Taken Type aspirin 81 mg tablet,delayed 81 mg PO DAILY 10/27/19 11/16/21 11/16/21 History release (Adult Aspirin Regimen) albuterol sulfate 90 mcg/actuation 2 puff INHALATION QID PRN 30 Days 09/25/21 11/16/21 Unknown Rx aerosol inhaler #8.5 g aripiprazole 5 mg tablet (Abilify) 5 mg PO DAILY #90 tab 09/26/21 11/16/21 11/16/21 Rx bupropion HCl 300 mg 24 hr tablet, 300 mg PO QAM #90 tab 09/26/21 11/16/21 11/16/21 Rx extended release (Wellbutrin XL) sertraline 100 mg tablet (Zoloft) 200 mg PO DAILY #180 tab 09/26/21 11/16/21 11/16/21 Rx glycopyrrolate 9 mcg-formoterol 2 puff INHALATION BID 100 Days 09/29/21 11/16/21 11/16/21 Rx 4.8 mcg HFA aerosol inhaler #10.7 g (Bevespi Aerosphere) hydrocodone 7.5 mg-acetaminophen 1 tab PO Q8H PRN 30 Days #90 tab 11/01/21 11/16/21 Unknown Rx 325 mg tablet Allergies Allergy/AdvReac Type Severity Reaction Status Date / Time sulfamethoxazole Allergy Unknown Verified 10/04/21 10:55 [From Bactrim] trimethoprim [From Bactrim] Allergy Unknown Verified 10/04/21 10:55 Current Medications Generic Name Dose Route Start Last Admin Trade Name Freq PRN Reason Stop Dose Admin Docusate Sodium 100 mg 11/17/21 09:00 11/17/21 08:03 Docusate Sodium 100 Mg Capsule PO Not Given BID ABBY Enoxaparin Sodium 40 mg 11/16/21 20:45 11/16/21 20:51 Enoxaparin 40 Mg/0.4 Ml Syringe SUBCUT 40 mg Q24H ABBY Administration Sodium Chloride 1,000 mls @ 100 mls/hr 11/16/21 20:20 11/16/21 22:31 Sodium Chloride 0.9% IV Not Given .Q10H ABBY Potassium Chloride/Dextrose/Sod Cl 20 meq in 1,000 mls @ 75 mls/hr 11/16/21 20:20 11/17/21 10:07 D5-Ns 0.45% + Kcl 20 Meq IV 75 mls/hr .[id number] ABBY Administration Sodium Chloride 1,000 mls @ 30 mls/hr 11/17/21 13:15 11/17/21 13:57 Sodium Chloride 0.9% IV 11/18/21 13:14 30 mls/hr .Q24H ABBY Administration Morphine Sulfate 2 mg 11/16/21 20:20 11/16/21 20:50 Morphine 4 Mg/Ml Sdv 1 Ml IVP 2 mg Q4H PRN Administration SEVERE PAIN Morphine Sulfate 4 mg 11/16/21 20:20 11/17/21 08:00 Morphine 4 Mg/Ml Sdv 1 Ml IVP 4 mg Q4H PRN Administration SEVERE PAIN Pantoprazole Sodium 40 mg 11/17/21 09:00 11/17/21 07:[address] 40 Mg Tablet PO 40 mg DAILY ABBY Administration PFSH Anesthesia Medical History Cannabis dependence, in remission Depression with anxiety Hepatitis C Lung cancer Other stimulant dependence, in remission Post-traumatic stress disorder, chronic Psychiatric care Restless legs syndrome Social History Smoking and tobacco status: former smoker Quit status (tobacco): has quit using tobacco Year quit tobacco: 2019 - 1PPD x 25 Years Smoking risk assessment/counseling performed?: No Alcohol intake: never Desire information about alcohol rehabilitation?: No Counseling given: No Desire information about substance/drug rehabilitation?: No Counseling given: No Lives independently: Yes Household members: none Marital status: Unknown Current occupational status: disabled History of recent travel: No Current gender identity: Female Data Anesthesia : 11/17/21 02:03 11/17/21 02:03 Short CBC 11/16/21 11/17/21 Range/Units 18:47 02:03 WBC 6.7 6.5 (4.0-10.0) 10^3/uL Hgb 10.6 L 10.4 L (11.5-15.3) g/dL Hct 31.1 L 32.0 L (37.0-47.0) % MCV 87.6 89.9 (81-99) fl Plt Count 212 234 (130-400) 10^3/cmm Neut % (Auto) 66.9 61.8 % Neut # (Auto) 4.47 4.01 (1.8-7.7) 10^3/uL BMP 11/16/21 11/17/21 18:47 02:03 Sodium 135 L 137 Potassium 3.3 L 3.4 L Chloride 99 100 Carbon Dioxide 25 28 BUN 11 10 Creatinine 0.4 L 0.4 L Glucose 98 118 H Calcium 8.9 9.0 Liver Function 11/16/21 11/17/21 Range/Units 18:47 02:03 Total Bilirubin 0.3 0.3 (0.15-1.2) mg/dL AST 11 11 (0-32) U/L ALT 8 8 (0-33) U/L Alkaline Phosphatase 71 79 (35-105) IU/L Albumin 3.7 3.8 (3.5-5.2) g/dL Urine 11/16/21 Range/Units 20:05 Urine Color Yellow (Yellow) Urine Appearance Clear (CLEAR) Urine pH 5 (5-7) Ur Specific [place] 1.020 (1.005-1.030) Urine Protein Neg (Negative) Urine Glucose (UA) Norm (Normal) Urine Ketones Negative (Negative) Urine Nitrate Negative (Negative) Urine Bilirubin Neg (Negative) Ur Leukocyte Esterase 2+ H (Negative) Urine RBC 0-4 H (0-2) /hpf Urine WBC 10-15 H (0-5) /hpf Cardiac Studies: No Data to Display
[2021-11-17] MEDS: CELEcoxib 200 mg Capsule 400 MG PO (14:10)
--- NOTE | 2021-11-17 14:21 | PM.CONSULT ---
Providers/Reason For Consult Consulting Physician/Specialty*: Emily Terry MD Reason for Consult*: Left supracondylar femur fracture with history of metastatic lung cancer Requesting Physician: ANDREW Paulson Attending Physician: Jason Lo MD Primary Care Provider: Ame Morgan MD History of Present Illness History of Present Illness Tracy Melton is a 51 year old female who is known to me from a femur fracture which was treated surgically on October 21, 2018. The patient most recently was seen by me in the office, and we had planned a work-up with a CT scan to evaluate the site of the fracture. Her hardware had migrated distally. She presented to the emergency department yesterday when she while walking her dog. The patient states her dog took off after another dog, she held onto the leash, and fell. Evaluation of x-rays demonstrates that the distal aspect of the trochanteric kari fractured through her anterior femur. Review of Systems Narrative: General no fevers chills weight loss she has had some weight gain from eating poorly. Cardiovascular no chest pain palpitations or edema respiratory no shortness of breath cough wheezing GI no nausea vomiting diarrhea constipation melena hematochezia Heme no bleeding disorder or clotting disorders Psych ok Neuro no history of seizures or stroke Muscle skeletal she has pain in her left leg Card: Denies: chest pain Resp: Denies: dyspnea GI: Denies: abdominal pain Musc: Reports: extremity pain (L LE), joint pain (L knee) and joint swelling (L knee); Denies: neck pain, back pain, joint redness or joint warmth Neuro: Denies: numbness in extremities or sensory changes Medications/Allergies Home Medications Medication Instructions Recorded Confirmed Last Taken Type aspirin 81 mg tablet,delayed 81 mg PO DAILY 10/27/19 11/16/21 11/16/21 History release (Adult Aspirin Regimen) albuterol sulfate 90 mcg/actuation 2 puff INHALATION QID PRN 30 Days 09/25/21 11/16/21 Unknown Rx aerosol inhaler #8.5 g aripiprazole 5 mg tablet (Abilify) 5 mg PO DAILY #90 tab 09/26/21 11/16/21 11/16/21 Rx bupropion HCl 300 mg 24 hr tablet, 300 mg PO QAM #90 tab 09/26/21 11/16/21 11/16/21 Rx extended release (Wellbutrin XL) sertraline 100 mg tablet (Zoloft) 200 mg PO DAILY #180 tab 09/26/21 11/16/21 11/16/21 Rx glycopyrrolate 9 mcg-formoterol 2 puff INHALATION BID 100 Days 09/29/21 11/16/21 11/16/21 Rx 4.8 mcg HFA aerosol inhaler #10.7 g (Bevespi Aerosphere) hydrocodone 7.5 mg-acetaminophen 1 tab PO Q8H PRN 30 Days #90 tab 11/01/21 11/16/21 Unknown Rx 325 mg tablet Allergies Allergy/AdvReac Type Severity Reaction Status Date / Time sulfamethoxazole Allergy Unknown Verified 10/04/21 10:55 [From Bactrim] trimethoprim [From Bactrim] Allergy Unknown Verified 10/04/21 10:55 Current Medications Generic Name Dose Route Start Last Admin Trade Name Freq PRN Reason Stop Dose Admin Docusate Sodium 100 mg 11/17/21 09:00 11/17/21 08:03 Docusate Sodium 100 Mg Capsule PO Not Given BID ABBY Enoxaparin Sodium 40 mg 11/16/21 20:45 11/16/21 20:51 Enoxaparin 40 Mg/0.4 Ml Syringe SUBCUT 40 mg Q24H ABBY Administration Sodium Chloride 1,000 mls @ 100 mls/hr 11/16/21 20:20 11/16/21 22:31 Sodium Chloride 0.9% IV Not Given .Q10H ABBY Potassium Chloride/Dextrose/Sod Cl 20 meq in 1,000 mls @ 75 mls/hr 11/16/21 20:20 11/17/21 10:07 D5-Ns 0.45% + Kcl 20 Meq IV 75 mls/hr .[id number] ABBY Administration Sodium Chloride 1,000 mls @ 30 mls/hr 11/17/21 13:15 11/17/21 13:57 Sodium Chloride 0.9% IV 11/18/21 13:14 30 mls/hr .Q24H ABBY Administration Morphine Sulfate 2 mg 11/16/21 20:20 11/16/21 20:50 Morphine 4 Mg/Ml Sdv 1 Ml IVP 2 mg Q4H PRN Administration SEVERE PAIN Morphine Sulfate 4 mg 11/16/21 20:20 11/17/21 08:00 Morphine 4 Mg/Ml Sdv 1 Ml IVP 4 mg Q4H PRN Administration SEVERE PAIN Pantoprazole Sodium 40 mg 11/17/21 09:00 11/17/21 07:[address] 40 Mg Tablet PO 40 mg DAILY ABBY Administration PFSH Acute PFSH: Medical History Cannabis dependence, in remission Depression with anxiety Hepatitis C Lung cancer Other stimulant dependence, in remission Post-traumatic stress disorder, chronic Psychiatric care Restless legs syndrome Social History Smoking and tobacco status: former smoker Quit status (tobacco): has quit using tobacco Year quit tobacco: 2019 - 1PPD x 25 Years Smoking risk assessment/counseling performed?: No Alcohol intake: never Desire information about alcohol rehabilitation?: No Counseling given: No Desire information about substance/drug rehabilitation?: No Counseling given: No Lives independently: Yes Household members: none Marital status: Unknown Current occupational status: disabled History of recent travel: No Current gender identity: Female Dietary Habits: Current diet type/program: regular Caffeine: Yes Vitals/I&O/Wt Last Vital Signs Temp 97.9 F 11/17/21 13:02 Pulse 88 11/17/21 13:02 Resp 16 11/17/21 13:02 BP 135/75 11/17/21 13:02 Pulse Ox 93 11/17/21 13:02 11/16/21 11/17/21 11/17/21 22:59 06:59 14:59 Intake Total 360 / 360 1096.25 / 1096.25 Output Total 310 / 310 Balance 360 / 360 -310 / 50 1096.25 / 1096.25 Physical Exam Const: COMMON NORMALS: no acute distress, average body habitus, patient oriented x3 and alert GENERAL APPEARANCE: cooperative and comfortable ORIENTATION/CONSCIOUSNESS: Yes awake HENMT: COMMON NORMALS: normocephalic and atraumatic HEAD & SCALP: normocephalic and atraumatic Eye: GENERAL EYE: appearance normal, both eyes and all related structures Chest: COMMONS NORMALS: normal inspection of the chest Resp: COMMON NORMALS: normal respiratory effort EFFORT & INSPECTION: Yes able to speak in complete sentences and Yes symmetric chest movement Extremity: LEFT LOWER EXTREMITY: Yes upper leg (Swelling consistent with recent fracture.) Left upper leg: Yes inspection (Abrasion over the knee.), Yes palpation (Tender over the fracture site.) and Yes neurovascular exam (Intact distally) Neuro: COMMON NORMALS: patient oriented x3 SENSORIUM/ORIENTATION: Yes alert Psych: COMMON NORMALS: mental status grossly normal APPEARANCE: Yes grossly normal ATTITUDE: Yes calm and Yes engaged ATTENTION/CONCENTRATION: Yes attention grossly intact Skin: COMMON NORMALS: no rashes or lesions noted GENERAL SKIN EXAM: no rashes or lesions noted Urinary Catheter Management: Diaz: Cath Placed During This Visit: yes Reason for Continuing Indwelling Catheter: Required Immobilization for Trauma or Surgery or Anesthesia Urinary Catheter Date of Insertion: 11/16/21 Urinary Catheter Time of Insertion: 23:59 Data : 11/17/21 02:03 11/17/21 02:03 Xray Ortho: My impression: Patient has a trochanteric kari with failed hardware distally. This was in the process of being worked up when she was pulled over by her dog suffering fracture through the anterior cortex of her left distal femur. X-ray imaging demonstrates the kari with broken screws x2 distally. She has shortening at the initial fracture site from 3 years ago. She also has anterior cortex fracture of the femur. A&P Assessment and plan (1) Closed supracondylar fracture of left femur: Patient's imaging studies have been reviewed. We had been working up the nonunion at the site of her pathologic fracture. This has been treated with radiation and she was also treated with chemotherapy. The patient was pulled over by her dog suffering a fracture where the distal aspect of the trochanteric nail protruded through the anterior femur. Consideration was given to retrograde femoral nail as well as the distal supracondylar femur plate. Given that she had had previous failure of the intramedullary nail, plans were made for removal of her trochanteric nail, biopsy of the femur, and placement of a supracondylar plate. 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: Status: Acute Qualifiers: Fracture morphology: oblique Fracture alignment: displaced Qualified Code(s): S72.332K - Displaced oblique fracture of shaft of left femur, subsequent encounter for closed fracture with nonunion (3) Pathological fracture of femur: Status: Acute Qualifiers: Pathology associated with fracture: neoplastic disease Encounter type: sequela Laterality: left Qualified Code(s): M84.552S - Pathological fracture in neoplastic disease, left femur, sequela Consult Attestations Medical Necessity Statement: Hospitalization for distal femur fracture, supracondylar Coding Level of Care Code 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
[2021-11-17] MEDS: ceFAZolin 1,000 mg SDV 1000 MG IRRIGATION ×2 (16:19→20:46)
[2021-11-17] MEDS: vancomycin 1,000 MG SDV 1000 MG XX (16:20)
--- NOTE | 2021-11-17 16:34 | SUR.OPER ---
family updated of surgical status
--- NOTE | 2021-11-17 17:36 | SUR.OPER ---
attempted to contact family with surgical update
[2021-11-17] MEDS: ceFAZolin 1,000 mg SDV 2000 MG IVP (19:00)
--- NOTE | 2021-11-17 19:29 | SUR.OPER ---
family updated of surgical status
--- NOTE | 2021-11-17 20:48 | SUR.OPER ---
family updated of surgical status
--- NOTE | 2021-11-17 21:01 | P.OP_ITS ---
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 Very difficult to remove retained long trochanteric nail Procedure done: Removal long trochanteric nail, takedown nonunion, lateral femoral supracondylar plate for open reduction internal fixation Implants: [place] 10 hole supracondylar lateral femoral plate Specimens removed/disposition: Bone sent to pathology for evaluation. History of metastatic disease. Pathology: none sent (Bone for microscopic evaluation) Surgeon: Emily Terry Stringing Machine Operator: [facility] operating room technicians Anesthesia: General (Intubated, ASA 3) Estimated blood loss (mL): 600 IV fluids (mL): 2,400 (Plus an additional 250 of albumin) Urine output (mL): 800 Complications: None Findings: Very difficult to remove long trochanteric nail with distal broken screws and with bony overgrowth proximally over the lag screw. Condition: stable Disposition: PACU (Then to floor for postoperative rehabilitation and pain management) Brief History: Tracy Melton is a 51 year old female who is known to me from a distal femur fracture which was treated surgically on October 21, 2018.? At that time, the patient was diagnosed with metastatic disease which resulted in that fracture. The patient most recently was seen by me in the office, and we had planned a work-up with a CT scan to evaluate the site of the fracture.? Her hardware had migrated distally.? She presented to the emergency department yesterday when she while walking her dog.? The patient states her dog took off after another dog, she held onto the leash, and fell.? Evaluation of x-rays demonstrates that the distal aspect of the trochanteric kari fractured through her anterior femur. Procedure: Patient was brought to the operating theater. After undergoing adequate general anesthesia with intubation, ASA 3, the patient was transferred to the fracture table, positioned on the table and fluoroscopic guidance obtained throughout the surgical procedure. Prior to the commencement of the surgical procedure, a surgical pause was performed. At the time of the surgical pause, we confirmed the site and side of surgery as well as preoperative surgical markings and appropriate and timely administration of IV antibiotics, Ancef 2 g. An additio nal Ancef 2 g was given approximately 4 hours later. Availability of equipment was also confirmed. Fluoroscopy was used throughout the procedure in AP and lateral planes. The patient's previous incision above the greater trochanter was once again entered. Dissection continued through skin and soft tissues using a scalpel hemostasis was obtained using electrocautery. We were able to enter the p roximal aspect of the trochanteric nail and back out the locking screw which prevented migration of the lag screw. Following this, attention was directed to the patient's slightly more distal incision which had been placed for the lag screw into the femoral head. This was opened as well. This had to be significantly extended as the bone had overgrown the lag screw, and it was unable to be extracted without significant clearance of bone from around the area. Therefore, combination of osteotomes and rongeurs were used to remove bone. Multiple techniques were attempted to remove the lag screw. We were subsequently able to remove the lag screw uneventfully. Attention was then directed to the proximal portion of the trochanteric nail. Because of the set screw, we were unable to pass the extractor, and we had to place a screwdriver and return the screw to its position and subsequently remove it to allow the extractor to be placed. Once the extractor was placed into position we monitor distally as there was one broken screw that was still in the nail. As the nail began to move, it became apparent that the screw was going to be removed with the nail. Therefore, we made an incision distally to allow us to place a drill through the nail and push the screw out of position so that we could remove the nail. Once we had accomplished this, we used a combination of the extractor and subsequently the inserting jig for removal of the trochanteric nail. It was very difficult and was very adhered to the bone. We were able to remove the trochanteric nail without complication, however. Once the trochanteric nail was removed, the 2 proximal incisions were closed with a combination of 0 Vicryl and skin leonid. The most proximal wound was then dressed with an OpSite. The more distal of these 2 incisions was not dressed as it would be in the surgical field for placement of the supracondylar plate. The incision that we had placed distally to address the removal of the 2 screw heads and pushing the broken screw out through the nail medially was closed only with leonid. The patient was then transferred to a regular operating room table. Once the patient was on a standard operating room table which was the Atilio table and translucent to imaging, we once again assured that we could visualize the patient supracondylar fracture. 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 Additionally, there was the violation of the anterior cortex from the trochanteric nail when the patient fell. We were able to visualize the fracture. The leg was prepped and draped in the normal fashion utilizing Betadine secondary to the 2 wounds which have been closed but were present. The incision utilized to remove the screws from the trochanteric nail including 2 screw heads and pushing the broken screw through the nail was incorporated into the lateral distal femoral incision to allow placement of the lateral sup racondylar plate. The plate used was a 10 hole plate. In this manner, we had 4-5 screw holes not involving fracture proximally. The nonunion was addressed with a combination of rongeurs, osteotomes, curettes, and irrigation. We were able to gain a little bit of length. We then used the plate and clamps to hold the fracture in a reduced position. Evaluation of plate position in AP and lateral planes was accomplished. This was evaluated both proximally and distally. We evaluated the fracture as well for appropriate reduction. When we were satisfied with position of the plate, it was pinned in place distally, and we then placed 1 screw proximally and 1 screw distally and added secondary screws to this before relieving traction. The plate was subsequently attached proximally and distally with multiple cortices. We used 1 nonlocking and remainder of the screws were locking screws. Fluoroscopy was used to determine appropriate length of the screws and position of the plate. We were satisfied and the plate was attached without further difficulty. Following attachment of the plate, the wound was copiously irrigated. Imaging was again obtained. At that point, closure was accomplished of the tensor fascia justin with 0 Vicryl. This was followed by vancomycin powder and Surgiflo. Subcutaneous tissues were closed with 2-0 Monocryl. Skin was closed with skin leonid. We then placed Dermabond pernio, OpSite, soft roll, and an Froylan wrap. The patient wasreturned to recovery in satisfactory condition. The patient will be discharged to the floor for postoperative rehabilitation and pain management. Specimens were sent to pathology. 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
--- NOTE | 2021-11-17 21:09 | XR_ITS ---
WS: [id number] INTRAOPERATIVE TECHNIQUE: 7 Spot fluoroscopic images for intraoperative purposes. FLUOROSCOPY TIME: 371.8 seconds CLINICAL INFORMATION: OR PICS COMPARISON: None. FINDINGS: Lateral plate and screw fixation distal femoral shaft and femoral condyles hardware appears in good p osition. Normal anatomic alignment. Abandoned screws along the medial femoral shaft. XR/XR femur LT min 2V* [id number] IMPRESSION: Images obtained for intraoperative purposes.
--- NOTE | 2021-11-17 21:23 | XRR_ITS ---
PROCEDURE INFORMATION: Exam: XR Left Femur Exam date and time: 11/17/2021 9:50 PM Age: 51 years old Clinical indication: Device placement; Other: Status post hardware removal and subsequent orif; Prior surgery; Surgery date: Post-operative (0-2 days) TECHNIQUE: Imaging protocol: XR Left femur. Views: 2 views. COMPARISON: 1. CR (LOW EXM, ) 11/16/2021 2:19 PM 2. OT XR femur LT 1V 04002 11/17/2021 2:05 PM FINDINGS: Bones/joints: Interval removal of previously noted intramedullary kari with femoral head and neck kari/screw and distal fixation screws. Mid and distal left lateral femoral screw and plate fixation hardware again noted which appears intact. Fractured screws again noted in the distal femur unchanged from prior exam. Oblique fracture in the distal femoral diaphysis again noted. Soft tissues: Surgical leonid along the lateral margin of the soft tissues with underlying subcutaneous emphysema. Surgical clips in the medial portion of the left leg. Prominent superficial swelling overlying the left hip. XR/XR femur LT min 2V* [id number] IMPRESSION: 1. Fixation hardware appears intact. 2. Prominent soft tissue swelling overlying the left hip with expected postsurgical subcutaneous emphysema.
[2021-11-17] MEDS: HYDROmorphone 1 mg/mL INJ 1 mL 0.5 MG IVP (21:45)
[2021-11-17] MEDS: enoxaparin 40 mg/0.4 mL Syringe SUBCUT (22:29)
[2021-11-18] VITALS (16 sets, daily range): BP systolic 93–134; BP diastolic 53–76; PULSE 64–95; RESP 16–20; TEMP 36.6–37.3; O2SAT 95–97
[2021-11-18] MEDS: HYDROcodone-acetaminophen 7.5-325 mg Tablet 1 TAB PO ×2 (01:17→20:05)
[2021-11-18] MEDS: morphine 4 mg/mL SDV 1 mL IVP ×3 (01:35→10:45)
[2021-11-18] MEDS: acetaminophen 1,000 MG/100 ML PIGGYBACK 400 MG IV ×2 (03:29→13:19)
[2021-11-18] MEDS: buPROPion XL (24 HR) 300 mg Tablet PO (06:13)
[2021-11-18] MEDS: aspirin 81 mg EC Tablet PO (08:54)
[2021-11-18] MEDS: sertraline 100 mg Tablet 200 MG PO (08:54)
[2021-11-18] MEDS: ARIPiprazole 10 mg Tablet 5 MG PO (08:54)
[2021-11-18] MEDS: CELEcoxib 200 mg Capsule PO (08:55)
[2021-11-18] MEDS: pantoprazole DR 40 mg Tablet PO (08:55)
[2021-11-18] MEDS: docusate sodium 100 mg Capsule PO ×2 (08:55→17:13)
[2021-11-18] MEDS: HYDROcodone-acetaminophen 5-325 mg Tablet 1 TAB PO (08:56)
--- NOTE | 2021-11-18 09:19 | ANE.PACU2 ---
Inpatient post-anesthesia follow up: Airway intact: Yes Vital signs: Temperature 98.5 F Pulse Rate 93 Respiratory Rate 17 Blood Pressure 104/64 Pulse Oximetry 97 Oxygen Delivery Me thod [ Room Air Current Rate & Del asiya] Oxygen Delivery Me thod Room Air Oxygen Flow Rate 8 Fraction of Inspir ed Oxygen Hydration adequate: Yes Nausea and vomiting: No Pain level: 4 Mental status: Baseline
--- NOTE | 2021-11-18 12:02 | P.PN_ITS ---
Subjective Subjective: Pain controlled patient is resting in bed. No concerns. Vitals/I&O/Wt Last Vital Signs Temp 98.5 F 11/18/21 08:00 Pulse 93 11/18/21 08:00 Resp 17 11/18/21 08:00 BP 104/64 11/18/21 08:00 Pulse Ox 97 11/18/21 08:00 11/17/21 11/18/21 11/18/21 22:59 06:59 14:59 Intake Total 3270 / 4366.25 440 / 4806.25 420 / 420 Output Total 2150 / 2150 Balance 1120 / 2216.25 440 / 2656.25 420 / 420 Physical Exam Narrative: Patient is able to move toes good cap refill. Urinary Catheter Management: Diaz: Cath Placed During This Visit: yes Reason for Continuing Indwelling Catheter: Acute Urinary Retention or Obstruction Urinary Catheter Date of Insertion: 11/16/21 Urinary Catheter Time of Insertion: 23:59 Data : 11/17/21 02:03 11/17/21 02:03 A&P Assessment and plan (1) Encounter for postoperative care: Patient is postop day #1 for a left hardware removal and ORIF of the left femur. Work with physical therapy. Status: Acute Attestations Medical Necessity Statement*: Per primary service Coding Level of Care Code Acute Cotton Candy Maker for Gautam Espinal Diagnoses Encounter for postoperative care Z48.89
[2021-11-18] MEDS: D5-NS 0.45% + KCL 20 mEq 20 MEQ/1,000 ML BAG 75 MEQ IV (13:17)
--- NOTE | 2021-11-18 14:44 | PM.PN ---
Subjective Subjective: Seen this morning. No acute events overnight. Resting in bed She is asking if she can eat. She would like to go home with home health and is not interested in rehab at this time. Vitals/I&O/Wt Last Vital Signs Temp 99.1 F 11/18/21 12:00 Pulse 95 11/18/21 12:00 Resp 17 11/18/21 12:00 BP 96/53 11/18/21 12:00 Pulse Ox 97 11/18/21 12:00 11/17/21 11/18/21 11/18/21 22:59 06:59 14:59 Intake Total 3270 / 4366.25 440 / 4806.25 1420 / 1420 Output Total 2150 / 2150 Balance 1120 / 2216.25 440 / 2656.25 1420 / 1420 Physical Exam Narrative: General: Alert oriented x3, patient seen resting in bed comfortably. HEENT: Normocephalic, atraumatic, EOMI, breathing normally on room air Cardio: Regular rate rhythm, normal S1-S2, no murmurs left upper chest port present Respiratory: Good bilateral air entry, no wheezes no rhonchi appreciated GI: Abdomen soft, nontender, nondistended, bowel sounds + Behavior: Appropriate and cooperative Extremities: no edema, no cyanosis. Left leg covered with compression Band-Aid all the way up to thigh. 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: Status: Acute Qualifiers: Fracture morphology: oblique Fracture alignment: displaced Qualified Code(s): S72.332K - Displaced oblique fracture of shaft of left femur, subsequent encounter for closed fracture with nonunion (3) Closed supracondylar fracture of left femur: Status: Acute Qualifiers: Encounter type: initial encounter Qualified Code(s): S72.452A - Displaced supracondylar fracture without intracondylar extension of lower end of left femur, initial encounter for closed fracture (4) Closed femur fracture: Status: Acute (5) Lung cancer: Status: Acute (6) COPD (chronic obstructive pulmonary disease): Status: Acute (7) Hepatitis C: Status: Acute Qualifiers: Viral hepatitis chronicity: chronic Hepatic coma status: without hepatic coma Qualified Code(s): B18.2 - Chronic viral hepatitis C Plan #Nonunion left distal supracondylar femur fracture with pathologic anterior supracondylar distal femur fracture status post hardware removal and lateral femoral plate placement #Lung cancer with mets to bone #COPD #Hepatitis C ? Patient underwent hardware removal yesterday with Dr. Stephens. She also had a lateral femoral plate placed. ? Continue to work with physical therapy ? Lovenox 40 daily for DVT prophylaxis -Check hepatitis C status with baseline labs ? Started on regular diet. Full code Attestations Medical Necessity Statement*: Status post surgery. Postop day 1. We will need to work with physical therapy and potentially go to rehab. Expected to stay in the hospital at least until Saturday. 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
[2021-11-18] MEDS: sodium chloride 0.9% 500 ML 999 ML IV (17:12)
[2021-11-18] MEDS: acetaminophen 500 mg Tablet 1000 MG PO (19:44)
[2021-11-18] MEDS: enoxaparin 40 mg/0.4 mL Syringe SUBCUT (20:44)
[2021-11-19] VITALS (19 sets, daily range): BP systolic 83–118; BP diastolic 49–77; PULSE 73–102; RESP 14–18; TEMP 36.6–37.7; O2SAT 95–97
--- NOTE | 2021-11-19 00:18 | PC.NURSE ---
BP continue to be low, Dr Raza notified and order for 500 ml NS bolus received
[2021-11-19] MEDS: sodium chloride 0.9% 500 ML 999 ML IV ×2 (00:28→03:10)
[2021-11-19] MEDS: D5-NS 0.45% + KCL 20 mEq 20 MEQ/1,000 ML BAG 75 MEQ IV (02:25)
[2021-11-19] MEDS: HYDROcodone-acetaminophen 7.5-325 mg Tablet 1 TAB PO ×4 (04:14→23:48)
[2021-11-19 06:00] LABS: Hematocrit 14.3 % (37.0-47.0); Hemoglobin 4.9 g/dL (11.5-15.3)
[2021-11-19] MEDS: midodrine 5 mg TABLET PO ×3 (06:37→22:13)
[2021-11-19] MEDS: buPROPion XL (24 HR) 300 mg Tablet PO (06:37)
[2021-11-19] MEDS: sucralfate 1 gm Tablet PO ×2 (06:37→16:35)
[2021-11-19] MEDS: pantoprazole 40 mg SDV IVP ×2 (07:00→16:35)
[2021-11-19 07:03] LABS: Basophils % 0.1 %; Eosinophils # 0.1 10^3/uL (0.0-0.8); Lymphocytes # 0.7 10^3/uL (0.8-4.8); Lymphocytes % 10.3 %; Mean Corpuscular HGB Conc 33.5 g/dL (30.0-36.0); Mean Corpuscular Hemoglobin 30.6 pg (28.0-34.0); Mean Corpuscular Volume 91.3 fl (81-99); Mean Platelet Volume 9.3 fL (7.4-10.4); Monocytes # 0.6 10^3/uL (0.2-0.9); Monocytes % 8.8 %; Neutrophils # 5.35 10^3/uL (1.8-7.7); Neutrophils % 78.6 %; Nucleated Red Blood Cells % 0 %; Platelet Count 166 10^3/cmm (130-400); Red Blood Count 1.73 10^6/uL (4.1-5.3); Red Cell Distribution Width 13.3 % (12.1-15.1); White Blood Count 6.8 10^3/uL (4.0-10.0)
[2021-11-19 07:08] LABS: INR 1.25 (0.8-1.2)
[2021-11-19 07:17] LABS: Alanine Aminotransferase 6 U/L (0-33); Albumin Level 2.8 g/dL (3.5-5.2); Alkaline Phosphatase 59 IU/L (35-105); Anion Gap 9.1 (5-19); Aspartate Amino Transferase 15 U/L (0-32); Blood Urea Nitrogen 4 mg/dL (6-20); Calcium 7.3 mg/dL (8.5-10.5); Carbon Dioxide 24 mmol/L (22-29); Chloride 108 mmol/L (98-107); Globulin 2.4 g/dL (1.3-4.6); Glomerular Filtration Rate 232.7 mL/min (90-130); Glucose 147 mg/dL (65-115); Osmolality Calculated 286 mOsm/kg (285-295); Potassium 3.1 mmol/L (3.5-5.1); Sodium 138 mmol/L (136-145); Total Bilirubin 0.2 mg/dL (0.15-1.2); Total Protein 5.2 g/dL (6.6-8.7)
[2021-11-19 07:35] LABS: Hematocrit 15.8 % (37.0-47.0); Hemoglobin 5.3 g/dL (11.5-15.3)
--- NOTE | 2021-11-19 10:24 | PC.SOCIAL ---
Pg 2 IMM. Explained to pt Pg 2 IMM. No questions voiced. Provided pt a copy. Initialed, dated, & timed a copy & placed in chart.
[2021-11-19] MEDS: morphine 4 mg/mL SDV 1 mL IVP (14:12)
--- NOTE | 2021-11-19 14:23 | PM.MISC ---
Miscellaneous Note Purpose of Documentation: discussed with nurse Note: Patient was 5.6. She was given 2 units of blood. I saw patient the day before she did not have any evidence of any drainage on her dressing. Patient had a large surgery and probably had some continued bleeding the amount of blood loss was expected at this point clinically she is doing well plan will be to see what her hemoglobin is when the recheck her hemoglobin at this point there is no indication to go back in and do any type of exploration or surgery. She does not need to be n.p.o. from an orthopedic standpoint
--- NOTE | 2021-11-19 14:52 | PM.PN ---
Subjective Subjective: Seen this morning. Overnight event noted. Hemoglobin dropped to 5.8. She was ordered 2 units of blood. Second bag of blood still running. Vitals/I&O/Wt Last Vital Signs Temp 99.4 F 11/19/21 13:21 Pulse 80 11/19/21 13:21 Resp 18 11/19/21 13:21 BP 112/68 11/19/21 13:21 Pulse Ox 95 11/19/21 12:21 11/18/21 11/19/21 11/19/21 22:59 06:59 14:59 Intake Total 1010 / 2550 2185 / 4735 30 Output Total 1050 / 1050 1100 / 2150 Balance -40 / 1500 1085 / 2585 Physical Exam Narrative: General: Alert oriented x3, patient seen resting in bed comfortably. HEENT: Normocephalic, atraumatic, EOMI, breathing normally on room air Cardio: Regular rate rhythm, normal S1-S2, no murmurs left upper chest port present Respiratory: Good bilateral air entry, no wheezes no rhonchi appreciated GI: Abdomen soft, nontender, nondistended, bowel sounds + Behavior: Appropriate and cooperative Extremities: no edema, no cyanosis.? Mild edema noted around left thigh. Bandage appears clean. No drainage noted. No ecchymosis on back or thigh. Pulses present bilateral lower extremities. 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: Status: Acute Qualifiers: Fracture morphology: oblique Fracture alignment: displaced Qualified Code(s): S72.332K - Displaced oblique fracture of shaft of left femur, subsequent encounter for closed fracture with nonunion (3) Closed supracondylar fracture of left femur: Status: Acute Qualifiers: Encounter type: initial encounter Qualified Code(s): S72.452A - Displaced supracondylar fracture without intracondylar extension of lower end of left femur, initial encounter for closed fracture (4) Closed femur fracture: Status: Acute (5) Lung cancer: Status: Acute (6) COPD (chronic obstructive pulmonary disease): Status: Acute Plan #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 Patient underwent hardware removal yesterday with Dr. Stephens.? She also had a lateral femoral plate placed. ? Continue to work with physical therapy ? Lovenox 40 daily for DVT prophylaxis was held last night due to low hemoglobin 5.8. -Check hepatitis C status with baseline labs ? Continue regular diet ? Patient interested in going home with home health. We will see how she does with physical therapy. ? We will check posttransfusion CBC after 2 units of blood. We will recheck every 8 hours. ? RN updated. Asked her to keep an eye on pulses for left leg. Dr. Thomas also saw patient today. Most likely her anemia is secondary to blood loss secondary to surgery. We will continue to monitor. Full code Attestations Medical Necessity Statement*: Continue to monitor in the hospital. She is requiring blood transfusion today. We will need to keep in hospital for another 48 hours to ensure hemoglobin is stable. 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
[2021-11-19 16:18] LABS: Hematocrit 23.2 % (37.0-47.0); Hemoglobin 7.8 g/dL (11.5-15.3)
[2021-11-19] MEDS: docusate sodium 100 mg Capsule PO (16:36)
[2021-11-19] MEDS: HYDROcodone-acetaminophen 5-325 mg Tablet 1 TAB PO (19:25)
[2021-11-19 21:51] LABS: Glucose Point of Care 160 mg/dL (70-110)
[2021-11-19 22:16] LABS: Basophils % 0.1 %; Eosinophils # 0.2 10^3/uL (0.0-0.8); Hematocrit 22.2 % (37.0-47.0); Hemoglobin 7.6 g/dL (11.5-15.3); Lymphocytes # 1.5 10^3/uL (0.8-4.8); Lymphocytes % 16.1 %; Mean Corpuscular HGB Conc 34.2 g/dL (30.0-36.0); Mean Corpuscular Hemoglobin 29.3 pg (28.0-34.0); Mean Corpuscular Volume 85.7 fl (81-99); Mean Platelet Volume 8.8 fL (7.4-10.4); Monocytes # 0.9 10^3/uL (0.2-0.9); Neutrophils # 6.44 10^3/uL (1.8-7.7); Neutrophils % 69.8 %; Nucleated Red Blood Cells % 0 %; Platelet Count 193 10^3/cmm (130-400); Red Blood Count 2.59 10^6/uL (4.1-5.3); Red Cell Distribution Width 14.3 % (12.1-15.1); White Blood Count 9.2 10^3/uL (4.0-10.0)
--- NOTE | 2021-11-19 22:37 | PC.NURSE ---
[address] Shields notified, order to draw again in the morning. CBC series already in place for 0400
[2021-11-20] VITALS (8 sets, daily range): BP systolic 106–122; BP diastolic 60–73; PULSE 88–96; RESP 16–18; TEMP 37–37.7; O2SAT 93–97
[2021-11-20] MEDS: D5-NS 0.45% + KCL 20 mEq 20 MEQ/1,000 ML BAG 75 MEQ IV (01:33)
[2021-11-20] MEDS: morphine 4 mg/mL SDV 1 mL IVP ×2 (03:41→22:37)
[2021-11-20 04:28] LABS: Basophils % 0.2 %; Eosinophils # 0.2 10^3/uL (0.0-0.8); Eosinophils % 1.9 %; Hematocrit 22.1 % (37.0-47.0); Hemoglobin 7.7 g/dL (11.5-15.3); Lymphocytes # 1.5 10^3/uL (0.8-4.8); Lymphocytes % 17.5 %; Mean Corpuscular HGB Conc 34.8 g/dL (30.0-36.0); Mean Corpuscular Hemoglobin 29.7 pg (28.0-34.0); Mean Corpuscular Volume 85.3 fl (81-99); Mean Platelet Volume 9.2 fL (7.4-10.4); Monocytes # 0.8 10^3/uL (0.2-0.9); Monocytes % 9.3 %; Neutrophils # 6.09 10^3/uL (1.8-7.7); Neutrophils % 69.2 %; Nucleated Red Blood Cells % 0 %; Platelet Count 216 10^3/cmm (130-400); Red Blood Count 2.59 10^6/uL (4.1-5.3); Red Cell Distribution Width 14.3 % (12.1-15.1); White Blood Count 8.8 10^3/uL (4.0-10.0)
[2021-11-20 04:40] LABS: Anion Gap 10.4 (5-19); Blood Urea Nitrogen 5 mg/dL (6-20); Calcium 7.9 mg/dL (8.5-10.5); Carbon Dioxide 26 mmol/L (22-29); Chloride 104 mmol/L (98-107); Glomerular Filtration Rate 232.7 mL/min (90-130); Glucose 128 mg/dL (65-115); Magnesium 1.6 mg/dL (1.7-2.3); Osmolality Calculated 283 mOsm/kg (285-295); Potassium 3.4 mmol/L (3.5-5.1); Sodium 137 mmol/L (136-145)
[2021-11-20] MEDS: buPROPion XL (24 HR) 300 mg Tablet PO (05:51)
[2021-11-20] MEDS: sucralfate 1 gm Tablet PO ×2 (05:52→18:34)
[2021-11-20] MEDS: midodrine 5 mg TABLET PO ×3 (05:52→22:09)
[2021-11-20] MEDS: pantoprazole 40 mg SDV IVP ×2 (06:02→18:34)
[2021-11-20] MEDS: HYDROcodone-acetaminophen 7.5-325 mg Tablet 1 TAB PO ×2 (09:05→18:35)
[2021-11-20] MEDS: ARIPiprazole 10 mg Tablet 5 MG PO (09:06)
[2021-11-20] MEDS: docusate sodium 100 mg Capsule PO ×2 (09:07→18:34)
[2021-11-20] MEDS: CELEcoxib 200 mg Capsule PO (09:07)
[2021-11-20] MEDS: sertraline 100 mg Tablet 200 MG PO (09:07)
--- NOTE | 2021-11-20 11:14 | PM.PN ---
Subjective Subjective: pain controlled Vitals/I&O/Wt Last Vital Signs Temp 99.9 F H 11/20/21 07:36 Pulse 93 11/20/21 07:36 Resp 16 11/20/21 07:36 BP 122/72 11/20/21 07:36 Pulse Ox 94 11/20/21 07:36 11/19/21 11/20/21 11/20/21 22:59 06:59 14:59 Intake Total 1000 / 1030 240 / 240 Output Total 1000 / 1000 0 / 1000 Balance 0 / 30 0 / 30 240 / 240 Physical Exam Narrative: hematoma left hip compartments soft good posterior tib pulse good rom of ankle Urinary Catheter Management: Diaz: Cath Placed During This Visit: yes Reason for Continuing Indwelling Catheter: Acute Urinary Retention or Obstruction Urinary Catheter Date of Insertion: 11/16/21 Urinary Catheter Time of Insertion: 23:59 Data : 11/20/21 03:34 11/20/21 03:34 A&P Assessment and plan (1) Encounter for postoperative care: POD #3 IM nail remoal and ORIF femur Up with PT D/c plannng Ice to left hip Status: Acute Attestations Medical Necessity Statement*: per primary service Coding Level of Care Code Acute Linux Developer for Gautam Espinal Diagnoses Encounter for postoperative care Z48.89
--- NOTE | 2021-11-20 11:32 | P.PN_ITS ---
Subjective Subjective: Seen this morning. She comes left thigh. Hemoglobin 7.7 today. She says she would like to go home if possible. Vitals/I&O/Wt Last Vital Signs Temp 99.9 F H 11/20/21 07:36 Pulse 93 11/20/21 07:36 Resp 16 11/20/21 07:36 BP 122/72 11/20/21 07:36 Pulse Ox 94 11/20/21 07:36 11/19/21 11/20/21 11/20/21 22:59 06:59 14:59 Intake Total 1000 / 1030 240 / 240 Output Total 1000 / 1000 0 / 1000 Balance 0 / 30 0 / 30 240 / 240 Physical Exam Narrative: General: Alert oriented x3, patient seen resting in bed comfortably. HEENT: Normocephalic, atraumatic, EOMI, breathing normally on room air Cardio: Regular rate rhythm, normal S1-S2, no murmurs left upper chest port present Respiratory: Good bilateral air entry, no wheezes no rhonchi appreciated GI: Abdomen soft, nontender, nondistended, bowel sounds + Behavior: Appropriate and cooperative Extremities: no edema, no cyanosis.? Mild to moderate edema noted around left thigh.? Bandage appears clean.? No drainage noted.? No ecchymosis on back or thigh.? Pulses present bilateral lower extremities.? Possible hematoma around that area. Band-Aid loosened by orthopedics. She is doing a lot better now. 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: Status: Acute Qualifiers: Fracture morphology: oblique Fracture alignment: displaced Qualified Code(s): S72.332K - Displaced oblique fracture of shaft of left femur, s ubsequent encounter for closed fracture with nonunion (3) Closed supracondylar fracture of left femur: Status: Acute Qualifiers: Encounter type: initial encounter Qualified Code(s): S72.452A - Displaced supracondylar fracture without intracondylar extension of lower end of left femur, initial encounter for closed fracture (4) Closed femur fracture: Status: Acute (5) Lung cancer: Status: Acute (6) COPD (chronic obstructive pulmonary disease): Status: Acute Plan #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 Patient underwent hardware removal yesterday with Dr. Stephens.? She also had a lateral femoral plate placed. ? Continue to work with physical therapy ? Hemoglobin 7.7, she is status post 2 units of packed RBC. ? Continue regular diet ? Patient interested in going home with home health.? ? We will check posttransfusion CBC after 2 units of blood.? We will recheck every 8 hours. ? RN updated.? Most likely her anemia is secondary to blood loss secondary to surgery.? We will continue to monitor. Full code Attestations Medical Necessity Statement*: Will need to stay in the hospital for monitoring of her hemoglobin. Possible discharge tomorrow if hemoglobin stays stable. Continue to work with physical therapy. 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
[2021-11-20 12:09] LABS: Glucose Point of Care 146 mg/dL (70-110)
[2021-11-20] MEDS: potassium chloride ER 20 mEq Tablet 40 MEQ PO (12:50)
[2021-11-20] MEDS: acetaminophen 500 mg Tablet 1000 MG PO (12:50)
[2021-11-20] MEDS: magnesium sulfate premix 4 GM/100 ML PREMIX IV (12:54)
[2021-11-20] MEDS: HYDROcodone-acetaminophen 5-325 mg Tablet 1 TAB PO (13:07)
[2021-11-20 17:36] LABS: Glucose Point of Care 139 mg/dL (70-110)
[2021-11-20 18:10] LABS: Basophils % 0.2 %; Eosinophils # 0.2 10^3/uL (0.0-0.8); Eosinophils % 2.6 %; Hematocrit 22.9 % (37.0-47.0); Hemoglobin 7.7 g/dL (11.5-15.3); Lymphocytes # 1.5 10^3/uL (0.8-4.8); Lymphocytes % 16.6 %; Mean Corpuscular HGB Conc 33.6 g/dL (30.0-36.0); Mean Corpuscular Hemoglobin 29.3 pg (28.0-34.0); Mean Corpuscular Volume 87.1 fl (81-99); Monocytes # 0.6 10^3/uL (0.2-0.9); Monocytes % 6.3 %; Neutrophils # 6.53 10^3/uL (1.8-7.7); Neutrophils % 72.5 %; Nucleated Red Blood Cells % 0 %; Platelet Count 208 10^3/cmm (130-400); Red Blood Count 2.63 10^6/uL (4.1-5.3); Red Cell Distribution Width 14.6 % (12.1-15.1)
[2021-11-21] VITALS (27 sets, daily range): BP systolic 100–116; BP diastolic 54–77; PULSE 78–108; RESP 0–31; TEMP 36.8–37.8; O2SAT 90–97
[2021-11-21] MEDS: morphine 4 mg/mL SDV 1 mL IVP (04:37)
[2021-11-21 06:05] LABS: Glucose Point of Care 111 mg/dL (70-110)
[2021-11-21] MEDS: midodrine 5 mg TABLET PO ×3 (06:09→21:56)
[2021-11-21] MEDS: buPROPion XL (24 HR) 300 mg Tablet PO (06:09)
[2021-11-21] MEDS: sucralfate 1 gm Tablet PO (06:09)
[2021-11-21] MEDS: pantoprazole 40 mg SDV IVP ×2 (06:26→17:58)
--- NOTE | 2021-11-21 07:55 | PC.NURSE ---
02 level was 82% on room air. grabbed aurelio from respitory and put 02 on. now 2 liters and 95%
[2021-11-21] MEDS: sertraline 100 mg Tablet 200 MG PO (08:56)
[2021-11-21] MEDS: docusate sodium 100 mg Capsule PO (08:57)
[2021-11-21] MEDS: CELEcoxib 200 mg Capsule PO (08:57)
[2021-11-21] MEDS: ARIPiprazole 10 mg Tablet 5 MG PO (08:57)
[2021-11-21 09:49] LABS: Basophils % 0.1 %; Eosinophils # 0.2 10^3/uL (0.0-0.8); Hematocrit 24.3 % (37.0-47.0); Hemoglobin 7.8 g/dL (11.5-15.3); Lymphocytes # 1.2 10^3/uL (0.8-4.8); Lymphocytes % 11.3 %; Mean Corpuscular HGB Conc 32.1 g/dL (30.0-36.0); Mean Corpuscular Hemoglobin 28.3 pg (28.0-34.0); Mean Platelet Volume 8.9 fL (7.4-10.4); Monocytes # 0.5 10^3/uL (0.2-0.9); Monocytes % 4.4 %; Neutrophils # 8.82 10^3/uL (1.8-7.7); Neutrophils % 81.2 %; Nucleated Red Blood Cells % 0 %; Platelet Count 243 10^3/cmm (130-400); Red Blood Count 2.76 10^6/uL (4.1-5.3); Red Cell Distribution Width 14.6 % (12.1-15.1); White Blood Count 10.9 10^3/uL (4.0-10.0)
--- NOTE | 2021-11-21 13:11 | XRR_ITS ---
PROCEDURE INFORMATION: Exam: XR Chest Exam date and time: 11/21/2021 1:26 PM Age: 51 years old Clinical indication: Shortness of breath; Patient HX: Decreased o2's, SOB. PT had lt femur surgery 3 days ago and started having decreased oxygen this morning during physical therapy, just walking the escobar TECHNIQUE: Imaging protocol: XR of the chest. Views: 1 view. COMPARISON: CR (CHEST, ) 11/16/2021 5:29 PM FINDINGS: Tubes, catheters and devices: A left central line extends into the SVC. This finding is stable since prior examination. Lungs: Low lung volumes seen. There is patchy interstitial densities in the left upper lobes. Pleural spaces: Unremarkable. No pleural effusion. No pneumothorax. Heart/Mediastinum: Unremarkable. No cardiomegaly. Bones/joints: Metallic surgical clips. Lower cervical spine. XR/XR chest 1V portable [id number] IMPRESSION: 1. No acute findings. 2. Low lung volumes seen. 3. Left central line is in the SVC. 4. Mild left upper lobe interstitial congestion. 5. Metallic orthopedic hardware cervical spine stable since prior
--- NOTE | 2021-11-21 13:13 | PM.PN ---
Subjective Subjective: Seen this morning. She is on 2 L nasal cannula oxygen. Overnight her saturations dropped to 84%. There is also report from nursing staff on suspicion of aspiration. She experienced some dysphagia while taking her pills this morning. She has been coughing. She seems congested today. Unable to clear oral secretions properly. She did tell the nurses that she has had this before. Hemoglobin stable overnight. 7.8 this morning. She was able to walk a little bit physical therapy yesterday and did well. WBC count 10.8. Temp 100.1 today. 99.8 overnight. Vitals/I&O/Wt Last Vital Signs Temp 100.1 F H 11/21/21 12:00 Pulse 89 11/21/21 12:00 Resp 18 11/21/21 12:00 BP 109/66 11/21/21 12:00 Pulse Ox 97 11/21/21 12:00 11/20/21 11/21/21 11/21/21 22:59 06:59 14:59 Intake Total 1480 / 2060 360 / 360 Output Total 1100 / 1200 650 / 1850 Balance 380 / 860 -650 / 210 360 / 360 Physical Exam Narrative: General: Alert oriented x3, patient seen resting in bed comfortably on 2 L nasal cannula HEENT: Normocephalic, atraumatic, EOMI, Cardio: Regular rate rhythm, normal S1-S2 Respiratory: Good bilateral air entry, no wheezes no rhonchi appreciated, coughing, lungs clear to auscultation mildly diminished at right base GI: Abdomen soft, nontender, nondistended, bowel sounds + Behavior: Appropriate and cooperative Extremities: no edema, no cyanosis.? Mild to moderate edema noted around left thigh.? Bandage appears clean.? No drainage noted.? No ecchymosis on back or thigh.? Pulses present bilateral lower extremities.? 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: Status: Acute Qualifiers: Fracture morphology: oblique Fracture alignment: displaced Qualified Code(s): S72.332K - Displaced oblique fracture of shaft of left femur, subsequent encounter for closed fracture with nonunion (2) Closed supracondylar fracture of left femur: Status: Acute Qualifiers: Encounter type: initial encounter Qualified Code(s): S72.452A - Displaced supracondylar fracture without intracondylar extension of lower end of left femur, initial encounter for closed fracture (3) Closed femur fracture: Status: Acute (4) Lung cancer: Status: Acute (5) COPD (chronic obstructive pulmonary disease): Status: Acute (6) Hepatitis C: Status: Acute Qualifiers: Viral hepatitis chronicity: chronic Hepatic coma status: without hepatic coma Qualified Code(s): B18.2 - Chronic viral hepatitis C (7) Aspiration into airway: Status: Acute (8) Pneumonia: Status: Acute (9) Dysphagia: Status: Acute Plan #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 Patient underwent hardware removal with Dr. Stephens.? She also had a lateral femoral plate placed. ? Continue to work with physical therapy ? Hemoglobin 7.8, she is status post 2 units of packed RBC. Stable. ? Continue regular diet ? Patient interested in going home with home health.? ? Check chest x-ray, procalcitonin. I have a high suspicion of the patient aspirated. There is oropharyngeal dysphagia noted by nurses been taking her tablets today. ? Start Unasyn ? Check modified barium swallow in a.m. ? Tylenol for temperature greater than 100.4 -We will rule out PE with CTA. Will eval paratrachael mass present on previous CT. Full code DVT prophylaxis pharmacological was held due to blood loss anemia. SCDs cannot be applied due to recent surgery. She does have history of cancer and is high risk for thrombosis. I will restart Lovenox 40 daily today and closely monitor hemoglobin. Attestations Medical Necessity Statement*: Will need to stay in the hospital for an additional 48 hours for treatment of pneumonia and dysphagia. 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
--- NOTE | 2021-11-21 13:21 | CT_ITS ---
WS: [id number] CT NECK TECHNIQUE: Contrast-enhanced CT of the neck with coronal and sagittal reformatted images. CLINICAL INFORMATION: dysphagia COMPARISON: None. DLP: 347.[address] [facility] use at least one of these dose optimization techniques: automated e xposure control; mA and/or kV adjustment per patient size (includes targeted exams where dose is matc hed to clinical indication); or iterative reconstruction. FINDINGS: Parotid glands are normal. Normal submandibular glands. Normal posterior nasopharynx. Mild sphenoid s inusitis. Normal posterior nasopharynx. Tongue base appears normal. Normal vallecula and epiglottis. Normal piriform sinuses. No evidence of supraglottic or glottic mass. Ballooning of the LEFT piriform sinus with rotation of the LEFT aryteno id. Medial deviation of the LEFT vocal cord. Findings most compatible with LEFT vocal cord paralysis. Recommend further evaluation with endoscopy. Dilatation of the LEFT laryngeal ventricle. Subglottic airway is patent. Normal thyroid gland. Mild carotid bulb calcification. Both ICAs are patent to the skull base. Codominant and patent verteb ral arteries. Proximal basilar artery is patent. Soft tissue thickening in the LEFT upper mediastinum about the LEFT subclavian artery likely due to radiation fibrosis discussed on the prior chest CT. H azy groundglass infiltrates in the lung apices. No cervical lymphadenopathy. Straightening of the nor mal cervical lordosis. Prior ACDF C5-C6. Slight retrolisthesis C3 on C4 and C4 on C5 with disc space narrowing. Mild central canal stenosis C3-C4 and C4-C5. A few prominent lymph nodes LEFT greater than RIGHT supraclavicular nonspecific but may be reactive. CT/CT neck w con* [id number] IMPRESSION: 1. Above findings suspicious for LEFT vocal cord paralysis described above. Re commend further evaluation with endoscopy. 2. Otherwise no evidence of supraglottic or glottic mass. Subglottic airway is patent. 3. No cervical lymphadenopathy. A few prominent LEFT greater than RIGHT suprac lavicular lymph nodes nonspecific but may be reactive. 4. Salivary glands are normal. 5. Mild sphenoid sinusitis. 6. Soft tissue thickening in the LEFT upper lobe likely due to radiation fibro sis. Described on the recent chest CT. 7. Groundglass infiltrates in the lung apices also described on the chest CT.
--- NOTE | 2021-11-21 13:21 | CT_ITS ---
WS: [id number] CTA OF THE CHEST WITH PULMONARY EMBOLISM PROTOCOL TECHNIQUE: High-resolution contrast enhanced CTA of the chest with coronal and sagittal reformatted i mages with pulmonary embolism protocol. MIP images are also reviewed. CLINICAL INFORMATION: r/o PE, eval paratrachael mass, aspiration/dysphagia COMPARISON: CT chest September 28, 2021 DLP: 487.[address] scans at [facility] use at least one of these dose optimization techniques: automated e xposure control; mA and/or kV adjustment per patient size (includes targeted exams where dose is matc hed to clinical indication); or iterative reconstruction. FINDINGS: Proximal main pulmonary arteries are normal. Normal segmental and subsegmental pulmonary ar teries. No evidence of pulmonary embolus. Diffuse groundglass infiltrates with interlobular septal th ickening involving the LEFT greater than RIGHT perihilar regions and upper lobes new from the prior C T September 28, 2021. Findings can be seen with ARDS, pulmonary edema, or viral pneumonia. Recommend satinder elation with infectious or inflammatory etiologies. Additional groundglass infiltrates in the mid lungs and LEFT greater than RIGHT lower lobes. Small bi lateral pleural effusions. Partial airspace consolidation the LEFT lower lobe medially consistent wit h pneumonia. Normal caliber thoracic aorta. Aortic calcification. Coronary calcification. Adrenal glands are oh l. Stable soft tissue mass involving the LEFT medial upper lobe and LEFT anterior mediastinum near the l malou apex. This is unchanged compared to the prior examinations. Persistent partial encasement of the LEFT subclavian artery unchanged. LEFT subclavian artery remains patent. Stable noncalcified 5 mm nod ule LEFT upper lobe. No progressed soft tissue thickening involving the RIGHT hilum and supra hilum i s nonspecific but also suspicious for radiation fibrosis. CT/CT angio chest PE protcl [id number] IMPRESSION: 1. No evidence of pulmonary embolus. 2. Hazy groundglass infiltrates in the LEFT greater than RIGHT perihilar regio ns and LEFT greater than RIGHT lower lobes with interlobular septal thickening. Findings can be seen with ARDS, pulmonary edema, and viral pneumonia. Recommen d correlation with infectious or inflammatory etiologies including Covid 19 pne umonia. 3. Small bilateral pleural effusions with compressive atelectasis in the lung bases. 4. Partial airspace consolidation in the LEFT lower lobe with air bronchograms consistent with pneumonia measuring 4.6 x 2.7 cm 5. Stable medial LEFT upper lobe paramediastinal soft tissue mass likely due t o radiation fibrosis. This is unchanged since the prior examination. 6. Progressed soft tissue thickening along the RIGHT hilum and suprahilar like ly due to radiation fibrosis. 7. No progressive lymphadenopathy.
--- NOTE | 2021-11-21 13:42 | PC.OT ---
OT TREATMENT ATTEMPTED. PATIENT STATES THAT SHE HAS ALREADY PERFORMED ADLS THIS MORNING. NOT AGREEABLE TO UE EXERCISE AT THIS TIME SHE STATES IT TIRES HER OUT. PATIENT DECLINES OT TREATMENT AT THIS TIME. AGREEABLE TO ATTEMPT TOMORROW.
[2021-11-21 13:49] LABS: Procalcitonin 0.46 ng/mL (0-0.5)
[2021-11-21] MEDS: ampicillin-sulbactam 3 GM in sodium chloride 0.9% (plus) 50 ML IV (14:10)
[2021-11-21] MEDS: enoxaparin 40 mg/0.4 mL Syringe SUBCUT (14:11)
[2021-11-21] MEDS: HYDROcodone-acetaminophen 7.5-325 mg Tablet 1 TAB PO ×2 (14:14→21:07)
[2021-11-21] MEDS: iohexol 300 mg/mL 100 mL Btl IV ×2 (15:07)
[2021-11-21] MEDS: vancomycin 750 MG in sodium chloride 0.9% 250 ML 250 MG IV ×2 (16:47→23:33)
[2021-11-21] MEDS: piperacillin-tazobactam 3.375 GM in sodium chloride 0.9% (plus) 50 ML IV (18:02)
[2021-11-21 18:48] LABS: Adenovirus Not Detected (NOT DETECT); Chlamydia Pneumoniae Not Detected (NOT DETECT); Coronavirus 229E,HKU1,NL63,OC4 Not Detected (NOT DETECT); Human Metapneumovirus Not Detected (NOT DETECT); Human Rhinovirus/Enterovirus Not Detected (NOT DETECT); Influenza A Not Detected (NOT DETECT); Influenza A H1 Not Detected (NOT DETECT); Influenza A H1-2009 Not Detected (NOT DETECT); Influenza A H3 Not Detected (NOT DETECT); Influenza B Not Detected (NOT DETECT); Mycoplasma Pneumoniae Not Detected (NOT DETECT); Parainfluenza Virus Type 1 Not Detected (NOT DETECT); Parainfluenza Virus Type 2 Not Detected (NOT DETECT); Parainfluenza Virus Type 3 Not Detected (NOT DETECT); Parainfluenza Virus Type 4 Not Detected (NOT DETECT); Respiratory Syncytial Virus A Not Detected (NOT DETECT); Respiratory Syncytial Virus B Not Detected (NOT DETECT); SARS-COV-2 Not Detected (NOT DETECT)
--- NOTE | 2021-11-21 19:35 | PC.NURSE ---
Report to Sonya BELLA at this time.
[2021-11-22] VITALS (48 sets, daily range): BP systolic 82–142; BP diastolic 45–76; PULSE 61–112; RESP 14–28; TEMP 36.6–37.6; O2SAT 69–100
[2021-11-22] MEDS: piperacillin-tazobactam 3.375 GM in sodium chloride 0.9% (plus) 50 ML IV ×3 (02:00→23:19)
[2021-11-22] MEDS: HYDROcodone-acetaminophen 7.5-325 mg Tablet 1 TAB PO ×2 (02:00→08:16)
[2021-11-22 05:43] LABS: ABG PCO2 38.8 mmHg (35-45); ABG PH Result 7.44 (7.35-7.45); Arterial Blood Gas Hematocrit 24.2 % (37-47); Base Excess ABG 1.7 mmol/L (-2.0-2.0); Blood Gas Allen Test Pos; Blood Gas Operator Identificat WALCI; Blood Gas Sample Site Radial, left; Blood Gas Sample Type Arterial; Oxygen Device NRB; PO2 ABG 79.2 mmHg (80.0-100.0)
[2021-11-22] MEDS: buPROPion XL (24 HR) 300 mg Tablet PO (06:00)
[2021-11-22] MEDS: pantoprazole 40 mg SDV IVP ×2 (06:00→23:19)
[2021-11-22] MEDS: midodrine 5 mg TABLET PO ×3 (06:00→23:19)
[2021-11-22] MEDS: sucralfate 1 gm Tablet PO ×2 (06:00→16:49)
[2021-11-22] MEDS: vancomycin 750 MG in sodium chloride 0.9% 250 ML 250 MG IV ×2 (08:08→20:58)
[2021-11-22] MEDS: sertraline 100 mg Tablet 200 MG PO (08:13)
[2021-11-22] MEDS: ARIPiprazole 10 mg Tablet 5 MG PO (08:13)
[2021-11-22] MEDS: CELEcoxib 200 mg Capsule PO (08:14)
[2021-11-22] MEDS: docusate sodium 100 mg Capsule PO (08:14)
--- NOTE | 2021-11-22 08:19 | USCV_ITS ---
Tracy Melton Age: 51 Gender: F : 1970 Exam Date: 11/22/2021 11:17 Ordering Phys: Maribel Stephen MD Technologist: LEANN [place] [facility] [place]: Patient is septic s/p LEFT femur hardware revision surgery 4 days ago. Hx LEFT femur fx 2018. No hx cardiac intervention per patient. Patient now on ventilator in ICU-1 BP: 90 / 45 HR: 83 Rhythm: Sinus Technical Quality: Adequate MEASUREMENTS (Male / Female) Normal Values 2D ECHO LV Diastolic Diameter PLAX 3.7 cm 4.2 - 5.9 / 3.9 - 5.3 cm LV Systolic Diameter PLAX 2.3 cm IVS Diastolic Thickness 0.7 cm 0.6 - 1.0 / 0.6 - 0.9 cm IVS Systolic Thickness 0.9 cm LVPW Diastolic Thickness 0.7 cm 0.6 - 1.0 / 0.6 - 0.9 cm LVPW Systolic Thickness 1.1 cm LVOT Diameter 1.8 cm LV Ejection Fraction 2D Teich 68.9 % LV Ejection Fraction MOD 2C 58.3 % LV Ejection Fraction 2C AL 57.7 % LA Diameter 3.2 cm LA Width 2.9 cm LA Height 5.6 cm RA Width 3.9 cm RA Height 4.9 cm Aorta at Sinotubular Diameter 2.8 cm IVC Diameter 2.0 cm M-MODE Aortic Annulus Diameter 2.5 cm LA Ao Ratio MM 1.4 MV E Point Septal Separation 0.3 cm DOPPLER AV Peak Velocity 156.0 cm/s LVOT Peak Velocity 118.0 cm/s AV Area Cont Eq vti 1.7 cm squared AV Area Cont Eq pk 1.9 cm squared MV Peak Velocity 101.0 cm/s MV Area PHT 3.9 cm squared Mitral E to A Ratio 1.1 MV E' Velocity 50.5 cm/s Mitral E to MV E' Ratio 6.6 Mitral E to LV E' Lateral Ratio 5.5 Mitral E to LV E' Septal Ratio 8.2 TR Peak Velocity 326.8 cm/s TR Peak Gradient 42.7 mmHg TV Peak E Velocity 43.0 cm/s Right Atrial Pressure 10.0 mmHg Pulmonary Artery Systolic Pressu 52.7 mmHg PV Peak Velocity 90.0 cm/s FINDINGS Left Ventricle Normal left ventricular size, systolic function and wall thickness, with no regional wall motion abnormalities. Normal diastolic function. Left ventricular ejection fraction is estimated at 65%. Right Ventricle Normal right ventricular size and systolic function. Mild pulmonary hypertension, RVSP 52.7 mmHg. Right Atrium Mildly increased right atrial size. Left Atrium The left atrium is normal in size. Mitral Valve Structurally normal mitral valve. Trace mitral valve regurgitation. Aortic Valve Structurally normal aortic valve without significant sclerosis or stenosis. There is no aortic regurgitation. Tricuspid Valve Structurally normal tricuspid valve. Moderate tricuspid valve regurgitation. Pulmonic Valve Pulmonic valve not well visualized. Pericardium No pericardial effusion. Small left pleural effusion. Aorta Normal ascending aorta dimension. IVC The inferior vena cava pulmonary and hepatic veins appear normal. CONCLUSIONS Normal left ventricular size, systolic function and wall thickness, with no regional wall motion abnormalities. Normal diastolic function. Left ventricular ejection fraction is estimated at 65%. Normal right ventricular size and systolic function. Mild pulmonary hypertension, RVSP 52.7 mmHg. Mildly increased right atrial size. Structurally normal mitral valve. Trace mitral valve regurgitation. No pericardial effusion. Small left pleural effusion. Dr. Wesley Heck MD (Electronically Signed) Final Date: 23 November 2021 13:32 S
--- NOTE | 2021-11-22 08:22 | USCV_ITS ---
Tracy Melton Age: 51 Gender: F : 1970 Exam Date: 11/22/2021 10:38 Ordering Phys: Maribel Stephen MD Technologist: LEANN Exam Location: [facility] [place] Indication: hypoxia. No hx DVT per patient. HISTORY: Patient is 4 days s/p hardware removal from LEFT femur s/p LEFT femur fx 2018. No hx DVT per patient. PROCEDURES: Venous duplex imaging was performed in bilateral lower extremities. The venous duplex Doppler examination of both lower extremities was performed in the standard fashion. The following venous structures were evaluated: common femoral vein, profunda vein, proximal portion of the greater saphenous vein, superficial femoral vein, and the popliteal vein. In addition, the posterior tibial veins and peroneal veins of the RIGHT lower extremity were evaluated. The LEFT peroneal veins could not be visualized due to extreme pain from recent LEFT femur hardware revision surgery. Bilaterally, the common femoral, superficial femoral, profunda femoral, popliteal, posterior tibial, greater saphenous veins, and the RIGHT peroneal veins were identified and interrogated in the standard fashion. These veins were found to be easily compressible with spontaneous blood flow. No evidence of thrombus noted. Serial compression, augmentation maneuvers, and spectral Doppler flow evaluation were performed and were normal. CONCLUSIONS No evidence of right lower extremity DVT. No evidence of left lower extremity DVT. Left peroneal veins not visualized due to recent surgery and pain Jason Mancilla MD (Electronically Signed) Final Date: 23 November 2021 08:52 S
[2021-11-22 09:18] LABS: Red Cell Distribution Width 14.3 % (12.1-15.1)
[2021-11-22 09:32] LABS: Anion Gap 13.6 (5-19); Blood Urea Nitrogen 12 mg/dL (6-20); Calcium 8.1 mg/dL (8.5-10.5); Carbon Dioxide 23 mmol/L (22-29); Chloride 101 mmol/L (98-107); Glucose 125 mg/dL (65-115); Osmolality Calculated 279 mOsm/kg (285-295); Potassium 3.6 mmol/L (3.5-5.1); Sodium 134 mmol/L (136-145)
[2021-11-22 09:46] LABS: Hematocrit 24.4 % (37.0-47.0); Hemoglobin 8.6 g/dL (11.5-15.3); Mean Corpuscular HGB Conc 35.2 g/dL (30.0-36.0); Mean Platelet Volume 9.3 fL (7.4-10.4); Platelet Count 287 10^3/cmm (130-400); Red Blood Count 2.87 10^6/uL (4.1-5.3); White Blood Count 16.6 10^3/uL (4.0-10.0)
[2021-11-22] MEDS: FUROsemide 10 mg/mL SDV 2mL 20 MG IVP (10:19)
--- NOTE | 2021-11-22 10:36 | PC.NURSE ---
transfer to ICU pt here via bed from [facility] on [facility] at 13 L. labored breathing noted. ultrasound at bedside.
[2021-11-22 10:40] LABS: Slide Review Slide Review Perform
[2021-11-22 10:41] LABS: Absolute Neutrophil 14.9 10^3/cmm (1.4-6.5); Absolute Segmented Neutrophil 12.3 10/cmm (1.6-7.1); Band Neutrophils Absolute 2.7 10^3/cmm (0.0-1.2); Eosinophils 0 %; Lymphocytes 5 %; Monocytes Absolute 0.8 10^3/cmm (0.1-0.6); Platelet Estimate Normal (Normal); Polychromasia Trace; Segmented Neutrophils 74 %; Total Cells Counted 100 (0-100)
[2021-11-22 10:42] LABS: Macrocytosis 1+
[2021-11-22] MEDS: ipratropium-albuterol 3 mL Neb INHALATION ×4 (11:22→23:29)
[2021-11-22] MEDS: propofol 1,000 MG/100 ML INJ 2.18 MG IV (11:42)
--- NOTE | 2021-11-22 11:45 | XR_ITS ---
WS: [id number] Exam: XR chest 1V portable [id number] Date/Time of Exam: 11/22/2021 11:54 AM Reason For Exam: et tube intubation Comparison 11/21/2021. Markedly increasing airspace and interstitial infiltrates now identified throughout both lungs. This could represent pneumonia or acute pulmonary edema. An endotracheal tube has been placed and ends abo ut 5 cm above the jae in good position. A left subclavian central line ends at the cavoatrial junc tion. An enteric tube enters the stomach but the tip is not visible. Cardiomediastinal silhouette is unremarkable for technique. No pneumothorax. Left pleural effusion noted. Hardware partially visualiz ed in the lower C-spine. XR/XR chest 1V portable [id number] IMPRESSION: 1. Markedly increasing airspace and interstitial infiltrates now identified thr oughout both lungs. This may represent pneumonia or acute pulmonary edema. Left pleural effusion has developed. 2. ET tube in satisfactory position. Left subclavian central line in satisfacto ry position. Enteric tube enters the stomach but the tip is not visible.
[2021-11-22] MEDS: succinylcholine 20 mg/mL SDV 10mL 100 MG IV (11:47)
--- NOTE | 2021-11-22 12:11 | PC.NURSE ---
Intubation Dr. Stephen at bedside discussing with patient oxygen needs. pt agreed to be intubated. Dr. Hebert from the ER on unit for intubation. succinylcholine and etomidate given. Size 8 tube noted. 22 at the lip. OG tube inserted. Diaz to gravity (already in place prior to intubation).
[2021-11-22 12:50] LABS: ABG PCO2 40.3 mmHg (35-45); ABG PH Result 7.39 (7.35-7.45); Alveolar-Arterial Oxygen Gradi 40.3 mmHg (5-10); Arterial Blood Gas Hematocrit 23.3 % (37-47); Base Excess ABG -0.5 mmol/L (-2.0-2.0); Blood Gas Allen Test Pos; Blood Gas Operator Identificat CAK; Blood Gas Sample Site Radial, left; Blood Gas Sample Type Arterial; Blood Gas Tidal Volume 0.42; Carboxyhemoglobin 1.6 %THgb (0.4-20.1); HCO3 ABG 24.4 mmol/L (22-26); HGB O2 Sat 90.6 % (95-100); Ionized Calcium Level - ABG 1.2 mmol/L (1.1-1.4); Methemoglobin 0.6 % (0.4-1.5); Oxygen Device VENT; Oxygen Saturation ABG 92.7; PO2 ABG 65.9 mmHg (80.0-100.0); Potassium Level - ABG 3.4 mmol/L (3.5-5.0); Total Hemoglobin 7.6 g/dL (12-16)
--- NOTE | 2021-11-22 12:56 | P.PN_ITS ---
Subjective Subjective: Seen this morning at bedside. She is on 12 L oxygen mask at this time. Overnight she desaturated down to 84% and was placed on 6 L nasal cannula. Morning labs pending. Modified barium swallow was going to be done today but I have now canceled it due to patient's respiratory status. She states her leg is doing better and pain is much better as well. She was started on Vanco and Zosyn yesterday. Due to patient's respiratory status, she was transferred to ICU for closer monitoring. After reaching ICU respiratory status deteriorated and she required 15 L high flow. It was tough to keep saturations off. She was between 88-90. At this time she was to be seen. Now having conversational dyspnea and desaturating when talking. She was dropping into 70s. I discussed with the patient and decision was made to intubate. Patient says that if she is unable to make her own medical decisions we should call her mother Linnette and she gave us her phone number. She also gave us her boyfriend's phone number Mr. Bolaños. Patient also told me that she used to use methamphetamine in the past and then quit for some time and recently relapsed. She says her last use was a few days prior to coming to the hospital. She says she wanted to tell me this before she got intubated in case this would help us. Vitals/I&O/Wt Last Vital Signs Temp 98.4 F 11/22/21 10:45 Pulse 97 11/22/21 12:00 Resp 25 H 11/22/21 12:00 BP 115/66 11/22/21 12:00 Pulse Ox 100 11/22/21 12:00 11/21/21 11/22/21 11/22/21 22:59 06:59 14:59 Intake Total 890 / 1500 590 / 2090 490 / 490 Output Total 800 / 800 Balance 90 / 700 590 / 1290 490 / 490 Weight last 48 hrs Weight 72.62 kg Physical Exam Narrative: General: Alert oriented x3, patient seen sitting up in bed on 12 L oxygen mask. No respiratory distress noted. Comfortable at this level of oxygen at this time. No conversational dyspnea noted. No use of accessory muscles at this time. HEENT: Normocephalic, atraumatic, EOMI, Cardio: Regular rate rhythm, normal S1-S2 Respiratory: Good bilateral air entry, no wheezes no rhonchi appreciated, lungs mainly clear to auscultation with mildly diminished at bilateral bases, no crackles appreciated. GI: Abdomen soft, nontender, nondistended, bowel sounds + Behavior: Appropriate and cooperative Extremities: no edema, no cyanosis.? Mild to moderate edema noted around left thigh.? Bandage appears clean.? No drainage noted.? No ecchymosis on back or thigh.? Pulses present bilateral lower extremities.? When patient was recently in ICU. Alert and oriented x3. On 15 L high flow nasal cannula. Continuously desaturating when talking. Acute respiratory distress noted. Some use of accessory muscles noted as well. Appears anxious. Desaturating down to 70s. Decision made to intubate. 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: Status: Acute Qualifiers: Fracture morphology: oblique Fracture alignment: displaced Qualified Code(s): S72.332K - Displaced oblique fracture of shaft of left femur, subsequent encounter for closed fracture with nonunion (5) Closed supracondylar fracture of left femur: Status: Acute Qualifiers: Encounter type: initial encounter Qualified Code(s): S72.452A - Displaced supracondylar fracture without intracondylar extension of lower end of left femur, initial encounter for closed fracture (6) Closed femur fracture: Status: Acute (7) Lung cancer: Status: Acute (8) COPD (chronic obstructive pulmonary disease): Status: Acute (9) Hepatitis C: Status: Acute Qualifiers: Viral hepatitis chronicity: chronic Hepatic coma status: without hepatic coma Qualified Code(s): B18.2 - Chronic viral hepatitis C (10) Ventilator dependent: Status: Acute (11) Respiratory failure: Status: Acute Plan #Vent dependent acute hypoxic respiratory failure #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 B/L Pleural effusions, consolidations, Pneumonia ? Patient underwent hardware removal with Dr. Stephens.? She also had a lateral femoral plate placed. ?Hemoglobin did drop postop to 5.2. She is status post 2 units packed RBC. Blood given on 11/19. Hemoglobin stable at 8.6 today. ? Place [place] ? Continue on ventilator. ? Pulmonology consulted. Plan for bronchoscopy. ? Repeat chest x-ray today. ? Continue on vancomycin and Zosyn. ? Check sputum culture gram stain, send sputum for PCP ? Modified barium swallow canceled today due to respiratory status. ? Neck CT done yesterday. CTA ruled out PE yesterday. ? Tylenol for temp greater than 100.4. ? Give Lasix 60 IV x1 today ? Lovenox 40 for DVT prophylaxis -Ventilator protocol. - Check blood cultures, urine culture - MRSA nares pending - COVID swab negative Full code Mother Linnette would make medical decisions if needed: [phone] Attestations Medical Necessity Statement*: Intubated and sedated in ICU. Greater than 72 hours to expect at this time for treatment of all of the above. 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
--- NOTE | 2021-11-22 12:58 | PC.OT ---
HOLD OT TREATMENT TODAY THE PATIENT HAS BEEN TRANSFERRED TO ICU. OTR TO CHECK ON PATIENT TOMORROW.
[2021-11-22] MEDS: acetaminophen 500 mg Tablet 1000 MG PO ×2 (13:26→19:36)
[2021-11-22] MEDS: enoxaparin 40 mg/0.4 mL Syringe SUBCUT (13:27)
[2021-11-22] MEDS: FUROsemide 10 mg/mL SDV 4mL 40 MG IVP (13:27)
--- NOTE | 2021-11-22 13:35 | PC.NURSE ---
family update mother and significant other updated on patient status
--- NOTE | 2021-11-22 13:49 | PC.NURSE ---
datar at bedside for bronchoscopy
--- NOTE | 2021-11-22 14:04 | PM.CONSULT ---
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 Patient had femoral fracture surgery in October 2018-and now distal aspect of trochanteric kari fractured through the anterior femur and so she was again operated on 11/17/2021 and long trochanteric nail was removed, nonunion was taken down, and lateral femoral supracondylar plate for open reduction and internal fixation was performed by orthopedic surgeon. Post procedure patient was recovering well, saturating well on room air, but postop day 2 night her hemoglobin dropped to 5.6 with no evidence of any drainage on her dressing and she was given 2 units of PRBC on 11/19/2021. Her hemoglobin remained stable around 7.7 since then. On 11/21/2021 early hours (24 hours after second transfusion ) her saturations dropped to 84% and she was placed on 2 L nasal cannula. There was a suspicion if patient has aspirated as some oropharyngeal dysphagia was noted by nurses. She was started on Unasyn and modified barium swallow was ordered. CTA ruled out PE but showed a bilateral hazy groundglass infiltrates more predominantly more on the left perihilar and left lower lobe areas with interlobular septal thickening. Also noted partially airspace consolidation in left lower lobe with air bronchograms suspected aspiration pneumonia. Left upper lobe paramediastinal soft tissue mass was stable likely due to radiation fibrosis unchanged from previous CT scans. Her oxygen requirements gradually increased and today she was requiring 15 L oxygen and so she was intubated, sedated and connected to ventilator. She was placed on CMV mode with 420 tidal volume/14 respiratory rate/55% FiO2/PEEP of 8. Antibiotic coverage was broadened to vancomycin and imipenem. Pulmonary critical care consulted for acute hypoxic respiratory failure in patient postop day 5. Patient seen at bedside intubated and sedated -Reviewed labs and imaging -Family reported patient had 2 episodes of COVID-19 pneumonia in last 6 months -Respiratory viral panel and COVID PCR were negative -Performed bedside bronchoscopy and sent cultures for bacterial cultures, fungal cultures, bronchial wash analysis, PCP PCR; bronchial wash analysis showed neutrophils 38% suspected for bacterial pneumonia -Given Lasix 40 Mg and recommended CV echo and bilateral venous Doppler -Recommended to start Lovenox for DVT prophylaxis as patient did not require further blood transfusion in the last 3 days and H&H stayed stable Medications/Allergies Home Medications Medication Instructions Recorded Confirmed Last Taken Type aspirin 81 mg tablet,delayed 81 mg PO DAILY 10/27/19 11/16/21 11/16/21 History release (Adult Aspirin Regimen) albuterol sulfate 90 mcg/actuation 2 puff INHALATION QID PRN 30 Days 09/25/21 11/16/21 Unknown Rx aerosol inhaler #8.5 g aripiprazole 5 mg tablet (Abilify) 5 mg PO DAILY #90 tab 09/26/21 11/16/21 11/16/21 Rx bupropion HCl 300 mg 24 hr tablet, 300 mg PO QAM #90 tab 09/26/21 11/16/21 11/16/21 Rx extended release (Wellbutrin XL) sertraline 100 mg tablet (Zoloft) 200 mg PO DAILY #180 tab 09/26/21 11/16/21 11/16/21 Rx glycopyrrolate 9 mcg-formoterol 2 puff INHALATION BID 100 Days 09/29/21 11/16/21 11/16/21 Rx 4.8 mcg HFA aerosol inhaler #10.7 g (Bevespi Aerosphere) hydrocodone 7.5 mg-acetaminophen 1 tab PO Q4H PRN 7 Days #30 tab 11/17/21 Unknown Rx 325 mg tablet Allergies Allergy/AdvReac Type Severity Reaction Status Date / Time sulfamethoxazole Allergy Unknown Verified 10/04/21 10:55 [From Bactrim] trimethoprim [From Bactrim] Allergy Unknown Verified 10/04/21 10:55 Current Medications Generic Name Dose Route Start Last Admin Trade Name Freq PRN Reason Stop Dose Admin Acetaminophen 1,000 mg 11/18/21 20:00 11/22/21 13:26 Acetaminophen 500 Mg Tablet PO 1,000 mg Q8H ABBY Administration Hydrocodone Bitart/Acetaminophen 1 tab 11/21/21 20:28 11/22/21 08:16 Hydrocodone-Acetaminophen 7.5-325 Mg Tablet PO 1 tab Q4H PRN Administration MODERATE PAIN Albuterol/Ipratropium 3 ml 11/22/21 12:00 11/22/21 11:22 Ipratropium-Albuterol 3 Ml Neb INHALATION 3 ml Q4H.RESPIRATORY ABBY Administration Aripiprazole 5 mg 11/18/21 09:00 11/22/21 08:13 Aripiprazole 10 Mg Tablet PO 5 mg DAILY ABBY Administration Bupropion HCl 300 mg 11/18/21 06:00 11/22/21 06:00 Bupropion Xl (24 Hr) 300 Mg Tablet PO 300 mg QAM ABBY Administration Docusate Sodium 100 mg 11/17/21 09:00 11/22/21 08:14 Docusate Sodium 100 Mg Capsule PO 100 mg BID ABBY Administration Enoxaparin Sodium 40 mg 11/21/21 14:00 11/22/21 13:27 Enoxaparin 40 Mg/0.4 Ml Syringe SUBCUT 40 mg Q24H ABBY Administration Vancomycin HCl 750 mg/ Sodium 250 mls @ 250 mls/hr 11/21/21 16:45 11/22/21 10:29 Chloride IV Infused Q8H ABBY Infusion Piperacillin Sod/Tazobactam 50 mls @ 12.5 mls/hr 11/21/21 18:15 11/22/21 11:06 Sod 3.375 gm/ Sodium Chloride IV 12.5 mls/hr Q8H ABBY Administration Fentanyl 1,000 mcg/ Sodium 100 mls @ 0 mls/hr 11/22/21 11:45 11/22/21 11:48 Chloride IV 25 mcg/hr .Q0M ABBY 2.5 mls/hr Administration Protocol Per Protocol Propofol 1,000 mg in 100 mls @ 0 mls/hr 11/22/21 11:45 11/22/21 11:42 Diprivan IV 30 mcg/kg/min .Q0M ABBY 13.07 mls/hr Administration Protocol Per Protocol Midodrine 5 mg 11/19/21 06:30 11/22/21 06:00 Midodrine 5 Mg Tablet PO 5 mg Q8H ABBY Administration Non-Formulary Medication 2 puff 11/18/21 09:00 11/22/21 08:14 Glycopyrrolate-Formoterol [Bevespi Aerosphere] INHALATION Not Given BID ABBY Pantoprazole Sodium 40 mg 11/19/21 06:30 11/22/21 06:00 Pantoprazole 40 Mg Sdv IVP 40 mg Q12H ABBY Administration Sertraline HCl 200 mg 11/18/21 09:00 11/22/21 08:13 Sertraline 100 Mg Tablet PO 200 mg DAILY ABBY Administration Sucralfate 1 gm 11/19/21 07:00 11/22/21 06:00 Sucralfate 1 Gm Tablet PO 1 gm BIDAC ABBY Administration PFSH Acute PFSH: Medical History Cannabis dependence, in remission Depression with anxiety Hepatitis C Lung cancer Other stimulant dependence, in remission Post-traumatic stress disorder, chronic Psychiatric care Restless legs syndrome Social History Smoking and tobacco status: former smoker Quit status (tobacco): has quit using tobacco Year quit tobacco: 2019 - 1PPD x 25 Years Smoking risk assessment/counseling performed?: No Alcohol intake: never Desire information about alcohol rehabilitation?: No Counseling given: No Desire information about substance/drug rehabilitation?: No Counseling given: No Lives independently: Yes Household members: none Marital status: Unknown Current occupational status: disabled History of recent travel: No Current gender identity: Female Vitals/I&O/Wt Last Vital Signs Temp 98.4 F 11/22/21 10:45 Pulse 88 11/22/21 13:00 Resp 18 11/22/21 13:00 BP 100/54 11/22/21 13:00 Pulse Ox 96 11/22/21 13:00 11/21/21 11/22/21 11/22/21 22:59 06:59 14:59 Intake Total 890 / 1500 590 / 2090 490 / 490 Output Total 800 / 800 Balance 90 / 700 590 / 1290 490 / 490 Weight last 48 hrs Weight 160 lb 1.6 oz Physical Exam Narrative: PHYSICAL EXAM: General: lying in bed, sedated and intubated. HEENT:NCAT, PERRLA, EOMI Neck: Supple Lungs: Clear, Heart: s1/s2, RRR Abd: soft, NT, ND, BS + Normoactive Extremities: No edema ELECTROLYSIS OPERATOR: sedated and limited ELECTROLYSIS OPERATOR exam possible. SKIN: no rash LDA: # CVC: Patient has Port-A-Cath Urinary Catheter Management: Diaz: Cath Placed During This Visit: yes Reason for Continuing Indwelling Catheter: Required Immobilization for Trauma or Surgery or Anesthesia Urinary Catheter Date of Insertion: 11/16/21 Urinary Catheter Time of Insertion: 23:59 Data : 11/22/21 08:45 11/22/21 08:45 Other Labs: Radiology Impressions Knee X-Ray 11/16/21 14:13 IMPRESSION: Acute or subacute on chronic distal femoral fractures with fractured displaced distal fixation screws and displaced intramedullary kari protruding through the anterior cortex of the femur. The tip of the kari lies 6 mm above the patella, possibly within the joint. Tibia/Fibula X-Ray 11/16/21 14:13 IMPRESSION: 1. Intact lower leg. 2. Femoral intramedullary kari protrudes through the anterior cortex of the distal femur just above the patella. Findings suggest distal femoral fracture of indeterminate acuity. Femur X-Ray 11/17/21 21:23 IMPRESSION: 1. Fixation hardware appears intact. 2. Prominent soft tissue swelling overlying the left hip with expected postsurgical subcutaneous emphysema. Chest CTA 11/21/21 13:21 IMPRESSION: 1. No evidence of pulmonary embolus. 2. Hazy groundglass infiltrates in the LEFT greater than RIGHT perihilar regions and LEFT greater than RIGHT lower lobes with interlobular septal thickening. Findings can be seen with ARDS, pulmonary edema, and viral pneumonia. Recommend correlation with infectious or inflammatory etiologies including Covid 19 pneumonia. 3. Small bilateral pleural effusions with compressive atelectasis in the lung bases. 4. Partial airspace consolidation in the LEFT lower lobe with air bronchograms consistent with pneumonia measuring 4.6 x 2.7 cm 5. 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 This is unchanged since the prior examination. 6. Progressed soft tissue thickening along the RIGHT hilum and suprahilar likely due to radiation fibrosis. 7. No progressive lymphadenopathy. Neck CT 11/21/21 13:21 IMPRESSION: 1. Above findings suspicious for LEFT vocal cord paralysis described above. Recommend further evaluation with endoscopy. 2. Otherwise no evidence of supraglottic or glottic mass. Subglottic airway is patent. 3. No cervical lymphadenopathy. A few prominent LEFT greater than RIGHT supraclavicular lymph nodes nonspecific but may be reactive. 4. Salivary glands are normal. 5. Mild sphenoid sinusitis. 6. Soft tissue thickening in the LEFT upper lobe likely due to radiation fibrosis. Described on the recent chest CT. 7. Groundglass infiltrates in the lung apices also described on the chest CT. Chest X-Ray 11/22/21 11:45 IMPRESSION: 1. Markedly increasing airspace and interstitial infiltrates now identified throughout both lungs. This may represent pneumonia or acute pulmonary edema. Left pleural effusion has developed. 2. ET tube in satisfactory position. Left subclavian central line in satisfactory position. Enteric tube enters the stomach but the tip is not visible. Laboratory Results WBC 16.6 10^3/uL (4.0-10.0) H 11/22/21 08:45 RBC 2.87 10^6/uL (4.1-5.3) L 11/22/21 08:45 Hgb 8.6 g/dL (11.5-15.3) L 11/22/21 08:45 Hct 24.4 % (37.0-47.0) L 11/22/21 08:45 MCV 85.0 fl (81-99) 11/22/21 08:45 MCH 30.0 pg (28.0-34.0) 11/22/21 08:45 MCHC 35.2 g/dL (30.0-36.0) D 11/22/21 08:45 RDW 14.3 % (12.1-15.1) 11/22/21 08:45 Plt Count 287 10^3/cmm (130-400) 11/22/21 08:45 MPV 9.3 fL (7.4-10.4) 11/22/21 08:45 Neut % (Auto) 81.2 % 11/21/21 09:05 Lymph % (Auto) Not Reportable 11/22/21 08:45 [place] % (Auto) Not Reportable 11/22/21 08:45 Eos % (Auto) 2.0 % 11/21/21 09:05 Baso % (Auto) 0.1 % 11/21/21 09:05 Neut # (Auto) 8.82 10^3/uL (1.8-7.7) H 11/21/21 09:05 Lymph # (Auto) Not Reportable 11/22/21 08:45 [place] # (Auto) Not Reportable 11/22/21 08:45 Eos # (Auto) 0.2 10^3/uL (0.0-0.8) 11/21/21 09:05 Baso # (Auto) 0.0 10^3/uL (0.0-0.1) 11/21/21 09:05 Nucleated RBC % (auto) 0 % 11/21/21 09:05 Total Counted 100 (0-100) 11/22/21 08:45 Atypical Lymphs % Not Reportable 11/22/21 08:45 Absolute Neutrophils 14.9 10^3/cmm (1.4-6.5) H 11/22/21 08:45 Segmented Neutrophils 74 % 11/22/21 08:45 Abs Segm Neuts (Man) 12.3 10/cmm (1.6-7.1) H 11/22/21 08:45 Band Neutrophils 16.0 % 11/22/21 08:45 Abs Band Neuts (Man) 2.7 10^3/cmm (0.0-1.2) H 11/22/21 08:45 Lymphocytes (Manual) 5 % 11/22/21 08:45 Monocytes (Manual) 5.0 % 11/22/21 08:45 Absolute Monocytes 0.8 10^3/cmm (0.1-0.6) H 11/22/21 08:45 Eosinophils (Manual) 0 % 11/22/21 08:45 Absolute Eosinophils 0.0 10^3/cmm (0.0-0.7) 11/22/21 08:45 Basophils (Manual) Not Reportable 11/22/21 08:45 Nucleated RBCs # 0.0 /100WBC 11/21/21 09:05 Platelet Estimate Normal (Normal) 11/22/21 08:45 Polychromasia Trace 11/22/21 08:45 Macrocytosis 1+ H 11/22/21 08:45 ESR 41 mm/hr (0-15) H 11/22/21 08:45 PT 16.00 SECONDS (12.1-14.9) H 11/19/21 Unknown INR 1.25 (0.8-1.2) H 11/19/21 Unknown Specimen Type Arterial 11/22/21 12:39 Sample Site Radial, left 11/22/21 12:39 ABG pH 7.39 (7.35-7.45) 11/22/21 12:39 ABG pCO2 40.3 mmHg (35-45) 11/22/21 12:39 ABG pO2 65.9 mmHg (80.0-100.0) L 11/22/21 12:39 ABG HCO3 24.4 mmol/L (22-26) 11/22/21 12:39 ABG O2 Saturation 92.7 11/22/21 12:39 ABG Base Excess -0.5 mmol/L (-2.0-2.0) 11/22/21 12:39 Tramaine Test Pos 11/22/21 12:39 A-a O2 Gradient 40.3 mmHg (5-10) H 11/22/21 12:39 Hematocrit 23.3 % (37-47) L 11/22/21 12:39 Hgb O2 Saturation 90.6 % (95-100) L 11/22/21 12:39 Carboxyhemoglobin 1.6 %THgb (0.4-20.1) 11/22/21 12:39 Methemoglobin 0.6 % (0.4-1.5) 11/22/21 12:39 Total Hemoglobin 7.6 g/dL (12-16) L 11/22/21 12:39 Sodium 140.0 mmol/L (131-143) 11/22/21 12:39 Potassium 3.4 mmol/L (3.5-5.0) L 11/22/21 12:39 Glucose 141.0 mg/dL (70-115) H 11/22/21 12:39 Ionized Calcium 1.2 mmol/L (1.1-1.4) 11/22/21 12:39 O2 Delivery Device Vent 11/22/21 12:39 O2 Liters/Min 15.0 % 11/22/21 05:32 FiO2 60.0 % 11/22/21 12:39 Tidal Volume 0.42 11/22/21 12:39 PEEP 8.0 cmH20 11/22/21 12:39 Plant Operations Coordinator ID Cak 11/22/21 12:39 Sodium 134 mmol/L (136-145) L 11/22/21 08:45 Potassium 3.6 mmol/L (3.5-5.1) 11/22/21 08:45 Chloride 101 mmol/L (98-107) 11/22/21 08:45 Carbon Dioxide 23 mmol/L (22-29) 11/22/21 08:45 Anion Gap 13.6 (5-19) 11/22/21 08:45 BUN 12 mg/dL (6-20) 11/22/21 08:45 Creatinine 0.4 mg/dL (0.5-0.9) L 11/22/21 08:45 GFR Calculation 167.0 mL/min (90-130) H 11/22/21 08:45 Glucose 125 mg/dL (65-115) H 11/22/21 08:45 POC Glucose 111 mg/dL (70-110) H 11/21/21 06:00 Calculated Osmolality 279 mOsm/kg (285-295) L 11/22/21 08:45 Calcium 8.1 mg/dL (8.5-10.5) L 11/22/21 08:45 Phosphorus 4.1 mg/dL (2.5-4.5) 11/17/21 02:03 Magnesium 1.6 mg/dL (1.7-2.3) L 11/20/21 03:34 Total Bilirubin 0.2 mg/dL (0.15-1.2) 11/19/21 Unknown AST 15 U/L (0-32) 11/19/21 Unknown ALT 6 U/L (0-33) 11/19/21 Unknown Alkaline Phosphatase 59 IU/L (35-105) 11/19/21 Unknown Creatine Kinase Cancelled 11/20/21 03:34 C-Reactive Protein 210.9 mg/L (0.0-4.9) H 11/22/21 16:00 NT-Pro-B Natriuret Pep 5618 pg/mL (0-125) H 11/22/21 16:00 Total Protein 5.2 g/dL (6.6-8.7) L 11/19/21 Unknown Albumin 2.8 g/dL (3.5-5.2) L 11/19/21 Unknown Globulin 2.4 g/dL (1.3-4.6) 11/19/21 Unknown Procalcitonin 0.46 ng/mL (0-0.5) 11/21/21 09:05 Urine Color Yellow (Yellow) 11/16/21 20:05 Urine Appearance Clear (CLEAR) 11/16/21 20:05 Urine pH 5 (5-7) 11/16/21 20:05 Ur Specific [place] 1.020 (1.005-1.030) 11/16/21 20:05 Urine Protein Neg (Negative) 11/16/21 20:05 Urine Glucose (UA) Norm (Normal) 11/16/21 20:05 Urine Ketones Negative (Negative) 11/16/21 20:05 Urine Blood Neg (Negative) 11/16/21 20:05 Urine Nitrate Negative (Negative) 11/16/21 20:05 Urine Bilirubin Neg (Negative) 11/16/21 20:05 Urine Urobilinogen 1 mg/dL (Negative) H 11/16/21 20:05 Ur Leukocyte Esterase 2+ (Negative) H 11/16/21 20:05 Urine RBC 0-4 /hpf (0-2) H 11/16/21 20:05 Urine WBC 10-15 /hpf (0-5) H 11/16/21 20:05 Ur Squamous Epith Cells 0-4 /hpf (0-5) H 11/16/21 20:05 Amorphous Sediment Not Reportable 11/16/21 20:05 Urine Bacteria Trace /hpf (NONE) 11/16/21 20:05 Urine Mucus 2+ /hpf 11/16/21 20:05 Urine Myoglobin Cancelled 11/20/21 11:14 Nasal Influ A H1 2008 PCR Not detected (NOT DETECT) 11/22/21 15:12 Bronch Specimen Source Left lower lobe 11/22/21 13:05 Bronchial Fluid Color Colorless 11/22/21 13:05 Bronchial Fluid Appearance Clear (CLEAR) 11/22/21 13:05 Bronchial Fluid WBC 281 /uL 11/22/21 13:05 Bronchial Fluid RBC 1 10^3/uL 11/22/21 13:05 Bronch Cells Counted 200 11/22/21 13:05 Bronchial Neutrophils 38.00 % (0.9-2.3) H 11/22/21 13:05 Bronchial Lymphocytes 7.00 % (10.71-12.91) L 11/22/21 13:05 Bronchial Eosinophils 2.00 % (0.13-0.25) H 11/22/21 13:05 Bronchial Macrophages 52.00 % (83.6-86.8) L 11/22/21 13:05 Bronchial Other Cells 1 % 11/22/21 13:05 Bronchial Diff Comment Yes 11/22/21 13:05 Vancomycin Trough 14.5 ug/mL (10-15) 11/22/21 16:00 Adenovirus (PCR) Not detected (NOT DETECT) 11/22/21 15:12 C. pneumoniae DNA (PCR) Not detected (NOT DETECT) 11/22/21 15:12 Coronavirus 229E (PCR) Cancelled 11/22/21 16:08 Human Metapneumovir PCR Not detected (NOT DETECT) 11/22/21 15:12 Influenza A (H1) PCR Not detected (NOT DETECT) 11/22/21 15:12 Influenza A (H3) PCR Not detected (NOT DETECT) 11/22/21 15:12 Influenza Type A (PCR) Not detected (NOT DETECT) 11/22/21 15:12 Influenza Type B (PCR) Not detected (NOT DETECT) 11/22/21 15:12 M. pneumoniae (PCR) Not detected (NOT DETECT) 11/22/21 15:12 Parainfluenza 1 (PCR) Not detected (NOT DETECT) 11/22/21 15:12 Parainfluenza 2 (PCR) Not detected (NOT DETECT) 11/22/21 15:12 Parainfluenza 3 (PCR) Not detected (NOT DETECT) 11/22/21 15:12 Parainfluenza 4 (PCR) Not detected (NOT DETECT) 11/22/21 15:12 RSV Type A (PCR) Not detected (NOT DETECT) 11/22/21 15:12 RSV Type B (PCR) Not detected (NOT DETECT) 11/22/21 15:12 Entero/Rhino (PCR) Not detected (NOT DETECT) 11/22/21 15:12 SARS-CoV-2 (PCR) Cancelled 11/22/21 16:08 Blood Type A Negative 11/17/21 16:55 Rho(D) Type Negative 11/17/21 16:55 Antibody Screen Negative 11/17/21 16:55 Crossmatch See Detail 11/17/21 16:55 Micro: Microbiology 11/19/21 12:05 Occult Blood (FIT) - Final Stool 11/22/21 08:50 Blood Culture - Preliminary Blood SPECIMEN COLLECTED 11/22/21 08:45 Blood Culture - Preliminary Blood SPECIMEN COLLECTED A&P Assessment and plan (1) Acute respiratory distress syndrome (ARDS): Status: Acute (2) Sepsis with acute hypoxic respiratory failure: Status: Acute (3) Dysphagia: Status: Acute (4) Aspiration into airway: Status: Acute (5) Lung cancer: Status: Acute (6) COPD (chronic obstructive pulmonary disease): Status: Acute Plan #Acute hypoxic respiratory failure and ARDS in patient with suspected aspiration pneumonia -Currently intubated and connected to ventilator on CMV 420/16/8/55%-ABG 7.3 9/40/65/24/92% -Sedated with propofol and fentanyl 25 MCG -Currently on midodrine 5 Mg p.o. every 8 and recommended Levophed to keep saturations to target MAP greater than 65 -Patient has suspected aspiration event postop day 3-and since then she was requiring supplemental oxygen -CT neck findings are suspicious for left vocal cord paralysis;CT chest showed bilateral diffuse GGO's more predominantly on the left perihilar and left lower lobe areas-with infiltrative consolidation with air bronchograms in left lower lobe -Patient was on Zosyn and due to worsening respiratory status requiring intubation-added vancomycin to broaden coverage-we will send for MRSA nares and if negative will discontinue vancomycin -Other causes of sudden hypoxia were also entertained -especially patient was not on DVT prophylaxis postsurgery due to low H&H PE was considered, however CTA ruled out PE-ordered bilateral venous Doppler; started on Lovenox 40 Mg daily for DVT prophylaxis as her H&H remained stable in last 72 hours and did not require further transfusions -Ruled out- TRALI-as symptoms started 36 HRS after last transfusion; -Given bilateral diffuse GGO's-respiratory viral panel and COVID PCR were sent which were negative; Patient is currently not on any immunosuppression-last immunotherapy was February 2020-however, I sent for PCP PCR on BAL and as results take at least 1 week-I started her on atovaquone (patient is allergic to sulfa) and IV steroids (PaO2< 70 and AA gradient> 35)-also sent for LDH -Other causes of bilateral GGO's-BNP 5618 ; fluid overload-secondary to TACO (less likely as she received only 2 units of PRBC) are suspected CHF-ordered CV echo-given Lasix 40 Mg -We will closely monitor input output and electrolytes and oxygen requirements, try to keep net negative to even fluid balance -I performed bronchoscopy today and sent BAL from left lower lobe for bacterial cultures, fungal cultures, PCP PCR, fluid analysis -Once able to taper down FiO2-we will start awakening trial and followed by breathing trial-plan to extubate in next 24 to 48 hours #History of squamous cell cancer of lung-s/p chemoradiation and immunotherapy-last dose February 2020 -Developed rash and so discontinued immunotherapy with pembrolizumab -Surveillance CT scans and PET CT scans-showed no recurrence of lung cancer with stable left perihilar opacity consistent with postradiation fibrosis #Patient has history of COPD and being managed by her agricultural education professor with Breztri 2 puffs twice daily -On DuoNeb every 6 hours as needed #IM nail removal and ORIF left femur-on 11/17/2021 -Stable as per orthopedic -Postop day 2 patient has drop in H&H-received 2 unit transfusion and since then H&H is stable ICU CHECKLIST: Problem list updated Verbal orders reviewed and signed Analgesia: Fentanyl Glycemic Control: Not required Nutrition: Start on tube feeding Jevity 20 cc/hour Restraint Renewal (within 24 hrs): Yes Ulcer Prophylaxis: PPI Chemical Thromboprophylaxis: Prophylaxis: Lovenox Mechanical Thromboprophylaxis: ICD Need for Central line: Patient had port Need for Diaz catheter: For UOP monitoring Family: Updated at bedside Prognosis: Guarded Code: Full Recommendations conveyed to, RN, RT taking care of the patient Consult Attestations Medical Necessity Statement: Acute hypoxemic respiratory failure secondary to ARDS due to aspiration pneumonia requiring mechanical ventilation and needs close ICU monitoring Time Spent in Patient Care: Greater than 35 minutes (>than 50% of time spent in counselling and/or direct pt care on unit). Critical Care Time: Critical Care Time (No Overlap): 75 min This patient has a high probability of sudden, clinically significant deterioration, which requires the highest level of physician preparedness to intervene urgently. I managed/supervised life or organ supporting interventions that required frequent physician assessment. I devoted my full attention in the ICU to the direct care of this patient for the period of time indicated above. Time I spent with family or surrogate(s) is included only if the patient was incapable of providing necessary information or participating in decision making. Time devoted to teaching and to any procedures I billed separately is not included. Services Provided: Telemetry review Mechanical Ventilation Hemodynamic interpretation, assessment and management Review and interpretation of CXR Review and interpretation of lab values Review and interpretation of microbiologic data and culture results Review of medications and administration Review and interpretation of Nutrition requirements and management Discussion of management with other consultants and services Clinical update to family members Coding Level of Care Code New Pt Acute Plant Operations Coordinator for Chg Fwd Patient Type New History Comprehensive Exam Comprehensive Medical Decision Making High Complexity Diagnoses Acute respiratory distress syndrome (ARDS) J80 Sepsis with acute hypoxic respiratory failure A41.9; R65.20; J96.01 Dysphagia R13.10 Aspiration into airway T17.908A Lung cancer C34.90 COPD (chronic obstructive pulmonary disease) J44.9 Time Spent (min) 75
--- NOTE | 2021-11-22 14:05 | P.PCN_ITS ---
Procedure/Consent Time out: Time Out Performed: Yes Consent: Additional Consent Information: Signed and placed in chart Procedure Narrative: Procedure: Flexible bronchoscopy with airway inspection, airway clearance of secretions and obtaining bronchoalveolar lavage sample Pre-Operative Diagnosis: Pneumonia Post-Operative Diagnosis: Same Indication: Acute hypoxic respiratory failure in patient with bilateral diffuse GGO's and left lower lobe consolidation-suspect pneumonia and bronchoscopy performed to obtain bronchoalveolar lavage samples Anesthesia: Patient was intubated and currently on fentanyl and propofol drips- titrated to achieve adequate sedation Pre-procedure Evaluation: Patient was evaluated clinically and ancillary testing reviewed. The risk of having active MTB infection is very low in my clinical judgement. ASA: 4 Malampati score: unable to evaluate due to presence of endotracheal tube Consent: Consents were obtained from [facility] and placed in the chart Procedure Details: Time out was performed by the procedure team and nursing staff. Vent support maintained on Fio2 100. The bronchoscope was introduced through the ETT. A bronchoscopic airway exam was performed to evaluate the visible tracheobronchial tree to the segmental level. Summary of Significant Findings: -Bronchoscope passed through ET tube, 6 ml 1% lidocaine instilled into the trachea, both right and left main bronchus. Distal trachea and main jae visualized which were sharp and normal. Then the scope was passed through the right bronchial tree was assessed to include the right mainstem bronchus, RBI, and RUL/RML/RLL bronchi to the segmental and subsegmental levels. No active bleeding noted. Mucosa appeared normal. No secretions noted. Then the scope was left bronchial tree was assessed to include the left mainstem bronchus, VITALIY, Lingula, and LLL bronchi to the segmental and subsegmental level. No active bleeding noted. Mucosa appeared erythematous throughout the left mainstem bronchus and upper and lower lobe segments and subsegments. No secretions were noted. After obtaining BAL from left lower lobe, bronchoscope was then removed and the procedure terminated. Estimated Blood Loss: None Specimens: Bronchoalveolar lavage was taken from left lower lobe and sent for microbiology cultures, fungal cultures, PCP PCR, Aspergillus antigen, fluid analysis Complications:None; patient tolerated the procedure well. Disposition: Patient remains critically ill, intubated and stays in ICU Russell Marc MD Pulmonary critical Care Medicine [facility] Acute Procedures Epistaxis Control: Time out performed: Yes
[2021-11-22 16:34] LABS: Vancomycin Trough 14.5 ug/mL (10-15)
[2021-11-22 16:44] LABS: Cyto Order Verification No Order
[2021-11-22 16:48] LABS: C Reactive Protein 210.9 mg/L (0.0-4.9)
[2021-11-22 17:12] LABS: Erythrocyte Sedimentation Rate 41 mm/hr (0-15)
[2021-11-22 17:36] LABS: Apprearance, Bronch Wash Clear (CLEAR); Color, Bronc Wash Colorless
[2021-11-22 17:47] LABS: NT Pro B Type Natriuretic Pept 5618 pg/mL (0-125)
[2021-11-22 18:40] LABS: Total Cells Counted Bronch 200
[2021-11-22 18:45] LABS: PATH Referral Yes
[2021-11-22 18:50] LABS: Other Cells, Bronch Wash 1 %
[2021-11-22 19:25] LABS: Adenovirus Not Detected (NOT DETECT); Chlamydia Pneumoniae Not Detected (NOT DETECT); Coronavirus 229E,HKU1,NL63,OC4 Not Detected (NOT DETECT); Human Metapneumovirus Not Detected (NOT DETECT); Human Rhinovirus/Enterovirus Not Detected (NOT DETECT); Influenza A Not Detected (NOT DETECT); Influenza A H1 Not Detected (NOT DETECT); Influenza A H1-2009 Not Detected (NOT DETECT); Influenza A H3 Not Detected (NOT DETECT); Influenza B Not Detected (NOT DETECT); Mycoplasma Pneumoniae Not Detected (NOT DETECT); Parainfluenza Virus Type 1 Not Detected (NOT DETECT); Parainfluenza Virus Type 2 Not Detected (NOT DETECT); Parainfluenza Virus Type 3 Not Detected (NOT DETECT); Parainfluenza Virus Type 4 Not Detected (NOT DETECT); Respiratory Syncytial Virus A Not Detected (NOT DETECT); Respiratory Syncytial Virus B Not Detected (NOT DETECT); SARS-COV-2 Not Detected (NOT DETECT)
--- NOTE | 2021-11-22 19:27 | PM.ACPR ---
Procedure/Consent Time out: Time Out Performed: Yes Consent: Consent for Procedure: Emergency procedure, Risks & Benefits reviewed and Agrees to proceed with procedure Additional Consent Information: Called to the bedside by Needed to intubate patient emergently patient was rapidly decompensating she was stable to talk Dr. Stephen had discussed with her that we would be intubated and placed on ventilator she agreed. I introduced myself to her briefly and told her we would give medications to make her comfortable and paralyze her and would put her on ventilator Chic agreed. Acute Procedures Epistaxis Control: Time out performed: Yes Intubation: Sedative: etomidate Mg given: 30 Paralytic: succinylcholine Mg given: 100 Laryngoscope: fiber optic video scope Assist device used: fiber optic device ET tube size: 8 ET tube uncuffed: No Tube secured depth (cm): 21 Tube secured location: teeth Tube placement confirmation: visualized tube passing through cords, equal breath sounds bilaterally, no breath sounds over epigastrium, confirmation by capnometry and color change noted Patient tolerated procedure: well Intubation complications: none
[2021-11-22] MEDS: propofol 1,000 MG/100 ML INJ 15.25 MG IV (22:29)
[2021-11-22] MEDS: chlorhexidine gluconate 0.12% Btl 473 mL 15 ML MUCOUS MEM (23:20)
[2021-11-23] VITALS (109 sets, daily range): BP systolic 91–125; BP diastolic 47–66; PULSE 72–100; RESP 14–20; TEMP 35.5–36.7; O2SAT 91–100; BMI 24.9
--- NOTE | 2021-11-23 00:45 | PC.NURSE ---
Temperature Patient's axillary temperature 96.4F. Rectal temperature checked and resulted at 96F. Dr. Shields notified and verbal order received to place mela hugger blanket on patient. Warming blanket placed on patient and continuous rectal temperature monitoring initiated.
[2021-11-23] MEDS: ipratropium-albuterol 3 mL Neb INHALATION ×6 (03:49→23:28)
[2021-11-23] MEDS: propofol 1,000 MG/100 ML INJ 15.25 MG IV (04:38)
[2021-11-23] MEDS: acetaminophen 500 mg Tablet 1000 MG PO ×3 (04:56→20:10)
[2021-11-23] MEDS: vancomycin 750 MG in sodium chloride 0.9% 250 ML 250 MG IV ×2 (04:57→11:39)
[2021-11-23 05:06] LABS: Lactate Dehydrogenase 386 U/L (135-214)
[2021-11-23] MEDS: piperacillin-tazobactam 3.375 GM in sodium chloride 0.9% (plus) 50 ML IV ×3 (06:35→22:12)
[2021-11-23] MEDS: sucralfate 1 gm Tablet PO ×2 (06:35→18:09)
[2021-11-23] MEDS: midodrine 5 mg TABLET PO ×3 (06:35→22:12)
--- NOTE | 2021-11-23 07:15 | PC.NURSE ---
Bupropion Patient has bupropion XL 300 mg ordered for this AM. This medication not able to be crushed and placed down the OG tube. Dr. Shields made aware. Medication not administered.
--- NOTE | 2021-11-23 07:29 | PC.NURSE ---
received report, pt resting comfortably on vent. reviewed poc and assumed care of patient. no needs identified at this time
[2021-11-23] MEDS: sertraline 100 mg Tablet 200 MG PO (08:23)
[2021-11-23] MEDS: pantoprazole 40 mg SDV IVP ×2 (08:23→22:13)
[2021-11-23] MEDS: chlorhexidine gluconate 0.12% Btl 473 mL 15 ML MUCOUS MEM ×2 (08:24→18:08)
[2021-11-23] MEDS: ARIPiprazole 10 mg Tablet 5 MG PO (08:25)
--- NOTE | 2021-11-23 08:29 | P.PN_ITS ---
Subjective Subjective: Patient seen and examined this morning. She is intubated and sedated in the ICU. However she did wake up and follow some commands for me. I reassured her that we were working to get her better. I told her to stay calm and patient remained calm. Family was also present at bedside. Her father or stepmother and her biological mother were in the room. They told me that patient has been vaping ever since she found out she had lung cancer. They are unsure as to what substance he uses but they are sure it is probably not nicotine. They state patient's boyfriend also vapes. Patient also told me that she has been using meth since recently. She had a relapse. In the past used to use meth and then she quit and then she started again. She told me this right before we intubated her. ABG will be ordered for today. She is on 50% FiO2. Saturating 96%. 100 of fentanyl, propofol IV. Bronchoscopy was performed yesterday and sent samples were sent to lab. She was also started on atovaquone today to cover for PCP. Vitals/I&O/Wt Last Vital Signs Temp 97.5 F L 11/23/21 04:00 Pulse 86 11/23/21 15:45 Resp 15 11/23/21 15:34 BP 107/57 11/23/21 15:45 Pulse Ox 92 11/23/21 15:45 11/23/21 11/23/21 11/23/21 06:59 14:59 22:59 Intake Total 846.788 / 1518.157 530.992 / 530.992 100 / 630.992 Output Total 1000 / 1825 Balance -153.212 / -306.843 530.992 / 530.992 100 / 630.992 Weight last 48 hrs Weight 65.771 kg Weight 72.62 kg Physical Exam Narrative: General: Intubated sedated Cardio: Regular rate rhythm, normal S1-S2 Respiratory: Clear to auscultation bilaterally, GI: Abdomen soft, nontender, nondistended, bowel sounds + Extremities: no edema, no cyanosis.? Mild to moderate edema noted around left thigh.? Bandage appears clean.? No drainage noted.? No ecchymosis on back or thigh.? Pulses present bilateral lower extremities.? hill in place Urinary Catheter Management: Hill: Cath Placed During This Visit: yes Reason for Continuing Indwelling Catheter: Accurate Measurement of Urinary Output in Critically Ill Patients Urinary Catheter Date of Insertion: 11/16/21 Urinary Catheter Time of Insertion: 23:59 Data : 11/23/21 08:17 11/23/21 08:17 Micro: Microbiology 11/22/21 13:05 Gram Stain - Final Lung Left Lower Lobe 11/22/21 08:50 Blood Culture - Preliminary Blood NEGATIVE TO DATE 11/22/21 08:45 Blood Culture - Preliminary Blood NEGATIVE TO DATE 11/19/21 12:05 Occult Blood (FIT) - Final Stool A&P Assessment and plan (1) Sepsis with acute hypoxic respiratory failure: Status: Acute (2) Acute respiratory distress syndrome (ARDS): Status: Acute (3) Respiratory failure: Status: Acute (4) Ventilator dependent: Status: Acute (5) Pneumonia: Status: Acute (6) Aspiration into airway: Status: Acute (7) Encounter for postoperative care: Status: Acute (8) 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: Status: Acute Qualifiers: Fracture morphology: oblique Fracture alignment: displaced Qualified Code(s): S72.332K - Displaced oblique fracture of shaft of left femur, subsequent encounter for closed fracture with nonunion (9) Closed supracondylar fracture of left femur: Status: Acute Qualifiers: Encounter type: initial encounter Qualified Code(s): S72.452A - Displaced supracondylar fracture without intracondylar extension of lower end of left femur, initial encounter for closed fracture (10) COPD (chronic obstructive pulmonary disease): Status: Acute (11) Lung cancer: Status: Acute Plan #Vent dependent acute hypoxic respiratory failure #Left vocal cord paralysis on Neck CT #ARDS? 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 Patient underwent hardware removal with Dr. Stephens.? She also had a lateral femoral plate placed. -Postop day 2 hemoglobin dropped to 5.2. She is status post 2 units packed RBC. Blood given on 11/19. Hemoglobin now stable and no longer further bleeding ? Chest CT consistent with ARDS. Unsure if this is aspiration versus PCP versus COVID. TACO low on the differential. -Possibility of vaping induced lung injury as well. -BNP 5000. Echocardiogram normal EF -Continue IV Lasix 20 mg ? PF ratio improving. Continue to wean down FiO2 ? Started on atovaquone today to cover for PCP. This medication was unavailable and had to be ordered. She has been started on that today ? Continue steroids ? Continue vancomycin and Zosyn. Sputum culture Gram stain, PCP bronchoalveolar lavage, other sputum studies pending ? Patient does have left vocal cord paralysis evidenced on neck CT. This most likely contributed to her aspiration. -CTA ruled out PE, DVT also ruled out. ? Blood cultures negative to date, urine culture pending ? MRSA nares swab pending ? COVID and respiratory panel negative. -We will closely monitor input output and electrolytes and oxygen requirements, try to keep net negative to even fluid balance -S/p bronchoscopy and BAL analysis since neutrophilic predominant-bacterial cultures, fungal cultures, PCP PCR, from left lower lobe are still pending -Once able to taper down FiO2-we will start awakening trial and followed by breathing trial-plan to extubate in next 24 to 48 hours -Pulmonology consulted. Appreciate recommendations. Full code Mother Linnette would make medical decisions if needed: [phone] Family updated at bedside. Attestations Medical Necessity Statement*: Intubated sedated in ICU. Requires ICU level care. Hospital stay expected to exceed 72 hours at this point. Pending clinical improvement. 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
[2021-11-23 09:03] LABS: Basophils % 0.2 %; Hematocrit 21.3 % (37.0-47.0); Hemoglobin 7.4 g/dL (11.5-15.3); Lymphocytes # 0.5 10^3/uL (0.8-4.8); Lymphocytes % 4.4 %; Mean Corpuscular HGB Conc 34.7 g/dL (30.0-36.0); Mean Corpuscular Hemoglobin 29.6 pg (28.0-34.0); Mean Corpuscular Volume 85.2 fl (81-99); Mean Platelet Volume 9.4 fL (7.4-10.4); Monocytes # 0.2 10^3/uL (0.2-0.9); Monocytes % 1.4 %; Neutrophils # 10.96 10^3/uL (1.8-7.7); Neutrophils % 93.4 %; Nucleated Red Blood Cells % 0 %; Platelet Count 233 10^3/cmm (130-400); Red Cell Distribution Width 14.3 % (12.1-15.1); White Blood Count 11.7 10^3/uL (4.0-10.0)
[2021-11-23 09:33] LABS: Alanine Aminotransferase 6 U/L (0-33); Albumin Level 2.2 g/dL (3.5-5.2); Alkaline Phosphatase 54 IU/L (35-105); Anion Gap 16.5 (5-19); Aspartate Amino Transferase 13 U/L (0-32); Blood Urea Nitrogen 22 mg/dL (6-20); Calcium 8.3 mg/dL (8.5-10.5); Carbon Dioxide 22 mmol/L (22-29); Chloride 104 mmol/L (98-107); Globulin 3.9 g/dL (1.3-4.6); Glucose 166 mg/dL (65-115); Osmolality Calculated 295 mOsm/kg (285-295); Potassium 3.5 mmol/L (3.5-5.1); Sodium 139 mmol/L (136-145); Total Bilirubin 0.2 mg/dL (0.15-1.2); Total Protein 6.1 g/dL (6.6-8.7)
[2021-11-23 09:34] LABS: Creatinine Clr Calc Pharmacy 60.7298
[2021-11-23 09:43] LABS: Positive M 0
[2021-11-23] MEDS: propofol 1,000 MG/100 ML INJ 19.61 MG IV ×3 (10:36→19:13)
[2021-11-23 10:43] LABS: ABG PCO2 41.4 mmHg (35-45); ABG PH Result 7.39 (7.35-7.45); Alveolar-Arterial Oxygen Gradi 26.5 mmHg (5-10); Arterial Blood Gas Hematocrit 26.1 % (37-47); Base Excess ABG 0.2 mmol/L (-2.0-2.0); Blood Gas Allen Test Pos; Blood Gas Operator Identificat CAK; Blood Gas Sample Site Radial, left; Blood Gas Sample Type Arterial; Blood Gas Tidal Volume 0.42; Carboxyhemoglobin 1.2 %THgb (0.4-20.1); HCO3 ABG 25.2 mmol/L (22-26); Ionized Calcium Level - ABG 1.2 mmol/L (1.1-1.4); Oxygen Device VENT; Oxygen Saturation ABG 93.2; PO2 ABG 66.2 mmHg (80.0-100.0); Potassium Level - ABG 3.4 mmol/L (3.5-5.0); Total Hemoglobin 8.5 g/dL (12-16)
--- NOTE | 2021-11-23 11:31 | PC.SOCIAL ---
IMM update IMM not updated as patient is intubated at this time and no dc in 24-48 hours.
[2021-11-23] MEDS: enoxaparin 40 mg/0.4 mL Syringe SUBCUT (14:10)
--- NOTE | 2021-11-23 15:01 | PM.PN ---
Subjective Subjective: -Patient seen at bedside and-sedated and ventilated -No acute overnight events -Family at bedside updated that patient is doing vaping until prior to admission -Other labs and imaging reviewed Medications: Reviewed: Yes Vitals/I&O/Wt Last Vital Signs Temp 97.5 F L 11/23/21 04:00 Pulse 82 11/23/21 11:16 Resp 14 11/23/21 14:51 BP 106/52 11/23/21 10:30 Pulse Ox 95 11/23/21 14:51 11/23/21 11/23/21 11/23/21 06:59 14:59 22:59 Intake Total 846.788 / 1518.157 510.992 / 510.992 Output Total 1000 / 1825 Balance -153.212 / -306.843 510.992 / 510.992 Weight last 48 hrs Weight 145 lb Weight 160 lb 1.6 oz Physical Exam Narrative: PHYSICAL EXAM: General: lying in bed, sedated and intubated. HEENT:NCAT, PERRLA, EOMI Neck: Supple Lungs: Clear, Heart: s1/s2, RRR Abd: soft, NT, ND, BS + Normoactive Extremities: No edema CREDIT UNDERWRITER: sedated and limited CREDIT UNDERWRITER exam possible. SKIN: no rash LDA: # CVC: Left subclavian central line Urinary Catheter Management: Diaz: Cath Placed During This Visit: yes Reason for Continuing Indwelling Catheter: Accurate Measurement of Urinary Output in Critically Ill Patients Urinary Catheter Date of Insertion: 11/16/21 Urinary Catheter Time of Insertion: 23:59 Data : 11/23/21 08:17 11/23/21 08:17 Other Labs: Radiology Impressions Knee X-Ray 11/16/21 14:13 IMPRESSION: Acute or subacute on chronic distal femoral fractures with fractured displaced distal fixation screws and displaced intramedullary kari protruding through the anterior cortex of the femur. The tip of the kari lies 6 mm above the patella, possibly within the joint. Tibia/Fibula X-Ray 11/16/21 14:13 IMPRESSION: 1. Intact lower leg. 2. Femoral intramedullary kari protrudes through the anterior cortex of the distal femur just above the patella. Findings suggest distal femoral fracture of indeterminate acuity. Femur X-Ray 11/17/21 21:23 IMPRESSION: 1. Fixation hardware appears intact. 2. Prominent soft tissue swelling overlying the left hip with expected postsurgical subcutaneous emphysema. Chest CTA 11/21/21 13:21 IMPRESSION: 1. No evidence of pulmonary embolus. 2. Hazy groundglass infiltrates in the LEFT greater than RIGHT perihilar regions and LEFT greater than RIGHT lower lobes with interlobular septal thickening. Findings can be seen with ARDS, pulmonary edema, and viral pneumonia. Recommend correlation with infectious or inflammatory etiologies including Covid 19 pneumonia. 3. Small bilateral pleural effusions with compressive atelectasis in the lung bases. 4. Partial airspace consolidation in the LEFT lower lobe with air bronchograms consistent with pneumonia measuring 4.6 x 2.7 cm 5. 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 This is unchanged since the prior examination. 6. Progressed soft tissue thickening along the RIGHT hilum and suprahilar likely due to radiation fibrosis. 7. No progressive lymphadenopathy. Neck CT 11/21/21 13:21 IMPRESSION: 1. Above findings suspicious for LEFT vocal cord paralysis described above. Recommend further evaluation with endoscopy. 2. Otherwise no evidence of supraglottic or glottic mass. Subglottic airway is patent. 3. No cervical lymphadenopathy. A few prominent LEFT greater than RIGHT supraclavicular lymph nodes nonspecific but may be reactive. 4. Salivary glands are normal. 5. Mild sphenoid sinusitis. 6. Soft tissue thickening in the LEFT upper lobe likely due to radiation fibrosis. Described on the recent chest CT. 7. Groundglass infiltrates in the lung apices also described on the chest CT. Chest X-Ray 11/22/21 11:45 IMPRESSION: 1. Markedly increasing airspace and interstitial infiltrates now identified throughout both lungs. This may represent pneumonia or acute pulmonary edema. Left pleural effusion has developed. 2. ET tube in satisfactory position. Left subclavian central line in satisfactory position. Enteric tube enters the stomach but the tip is not visible. Laboratory Results WBC 11.7 10^3/uL (4.0-10.0) H 11/23/21 08:17 RBC 2.50 10^6/uL (4.1-5.3) L 11/23/21 08:17 Hgb 7.4 g/dL (11.5-15.3) L 11/23/21 08:17 Hct 21.3 % (37.0-47.0) L 11/23/21 08:17 MCV 85.2 fl (81-99) 11/23/21 08:17 MCH 29.6 pg (28.0-34.0) 11/23/21 08:17 MCHC 34.7 g/dL (30.0-36.0) 11/23/21 08:17 RDW 14.3 % (12.1-15.1) 11/23/21 08:17 Plt Count 233 10^3/cmm (130-400) 11/23/21 08:17 MPV 9.4 fL (7.4-10.4) 11/23/21 08:17 Neut % (Auto) 93.4 % 11/23/21 08:17 Lymph % (Auto) 4.4 % 11/23/21 08:17 Crane % (Auto) 1.4 % 11/23/21 08:17 Eos % (Auto) 0.0 % 11/23/21 08:17 Baso % (Auto) 0.2 % 11/23/21 08:17 Neut # (Auto) 10.96 10^3/uL (1.8-7.7) H 11/23/21 08:17 Lymph # (Auto) 0.5 10^3/uL (0.8-4.8) L 11/23/21 08:17 Crane # (Auto) 0.2 10^3/uL (0.2-0.9) 11/23/21 08:17 Eos # (Auto) 0.0 10^3/uL (0.0-0.8) 11/23/21 08:17 Baso # (Auto) 0.0 10^3/uL (0.0-0.1) 11/23/21 08:17 Nucleated RBC % (auto) 0 % 11/23/21 08:17 Total Counted 100 (0-100) 11/22/21 08:45 Atypical Lymphs % Not Reportable 11/22/21 08:45 Absolute Neutrophils 14.9 10^3/cmm (1.4-6.5) H 11/22/21 08:45 Segmented Neutrophils 74 % 11/22/21 08:45 Abs Segm Neuts (Man) 12.3 10/cmm (1.6-7.1) H 11/22/21 08:45 Band Neutrophils 16.0 % 11/22/21 08:45 Abs Band Neuts (Man) 2.7 10^3/cmm (0.0-1.2) H 11/22/21 08:45 Lymphocytes (Manual) 5 % 11/22/21 08:45 Monocytes (Manual) 5.0 % 11/22/21 08:45 Absolute Monocytes 0.8 10^3/cmm (0.1-0.6) H 11/22/21 08:45 Eosinophils (Manual) 0 % 11/22/21 08:45 Absolute Eosinophils 0.0 10^3/cmm (0.0-0.7) 11/22/21 08:45 Basophils (Manual) Not Reportable 11/22/21 08:45 Nucleated RBCs # 0.0 /100WBC 11/23/21 08:17 Platelet Estimate Normal (Normal) 11/22/21 08:45 Polychromasia Trace 11/22/21 08:45 Macrocytosis 1+ H 11/22/21 08:45 ESR 41 mm/hr (0-15) H 11/22/21 08:45 PT 16.00 SECONDS (12.1-14.9) H 11/19/21 Unknown INR 1.25 (0.8-1.2) H 11/19/21 Unknown Specimen Type Arterial 11/23/21 10:31 Sample Site Radial, left 11/23/21 10:31 ABG pH 7.39 (7.35-7.45) 11/23/21 10:31 ABG pCO2 41.4 mmHg (35-45) 11/23/21 10:31 ABG pO2 66.2 mmHg (80.0-100.0) L 11/23/21 10:31 ABG HCO3 25.2 mmol/L (22-26) 11/23/21 10:31 ABG O2 Saturation 93.2 11/23/21 10:31 ABG Base Excess 0.2 mmol/L (-2.0-2.0) 11/23/21 10:31 Tramaine Test Pos 11/23/21 10:31 A-a O2 Gradient 26.5 mmHg (5-10) H 11/23/21 10:31 Hematocrit 26.1 % (37-47) L 11/23/21 10:31 Hgb O2 Saturation 92.0 % (95-100) L 11/23/21 10:31 Carboxyhemoglobin 1.2 %THgb (0.4-20.1) 11/23/21 10:31 Methemoglobin 0.0 % (0.4-1.5) L 11/23/21 10:31 Total Hemoglobin 8.5 g/dL (12-16) L 11/23/21 10:31 Sodium 141.0 mmol/L (131-143) 11/23/21 10:31 Potassium 3.4 mmol/L (3.5-5.0) L 11/23/21 10:31 Glucose 145.0 mg/dL (70-115) H 11/23/21 10:31 Ionized Calcium 1.2 mmol/L (1.1-1.4) 11/23/21 10:31 O2 Delivery Device Vent 11/23/21 10:31 O2 Liters/Min 15.0 % 11/22/21 05:32 FiO2 45.0 % 11/23/21 10:31 Tidal Volume 0.42 11/23/21 10:31 PEEP 8.0 cmH20 11/23/21 10:31 Good Humor Vendor ID Cak 11/23/21 10:31 Sodium 139 mmol/L (136-145) 11/23/21 08:17 Potassium 3.5 mmol/L (3.5-5.1) 11/23/21 08:17 Chloride 104 mmol/L (98-107) 11/23/21 08:17 Carbon Dioxide 22 mmol/L (22-29) 11/23/21 08:17 Anion Gap 16.5 (5-19) 11/23/21 08:17 BUN 22 mg/dL (6-20) H 11/23/21 08:17 Creatinine 1.0 mg/dL (0.5-0.9) H 11/23/21 08:17 GFR Calculation 58.0 mL/min (90-130) L 11/23/21 08:17 Glucose 166 mg/dL (65-115) H 11/23/21 08:17 POC Glucose 111 mg/dL (70-110) H 11/21/21 06:00 Calculated Osmolality 295 mOsm/kg (285-295) 11/23/21 08:17 Calcium 8.3 mg/dL (8.5-10.5) L 11/23/21 08:17 Phosphorus 4.1 mg/dL (2.5-4.5) 11/17/21 02:03 Magnesium 1.6 mg/dL (1.7-2.3) L 11/20/21 03:34 Total Bilirubin 0.2 mg/dL (0.15-1.2) 11/23/21 08:17 AST 13 U/L (0-32) 11/23/21 08:17 ALT 6 U/L (0-33) 11/23/21 08:17 Alkaline Phosphatase 54 IU/L (35-105) 11/23/21 08:17 Lactate Dehydrogenase 386 U/L (135-214) H 11/23/21 03:11 Creatine Kinase Cancelled 11/20/21 03:34 C-Reactive Protein 210.9 mg/L (0.0-4.9) H 11/22/21 16:00 NT-Pro-B Natriuret Pep 5618 pg/mL (0-125) H 11/22/21 16:00 Total Protein 6.1 g/dL (6.6-8.7) L 11/23/21 08:17 Albumin 2.2 g/dL (3.5-5.2) L 11/23/21 08:17 Globulin 3.9 g/dL (1.3-4.6) 11/23/21 08:17 Procalcitonin 0.46 ng/mL (0-0.5) 11/21/21 09:05 Urine Color Yellow (Yellow) 11/16/21 20:05 Urine Appearance Clear (CLEAR) 11/16/21 20:05 Urine pH 5 (5-7) 11/16/21 20:05 Ur Specific Elizabeth 1.020 (1.005-1.030) 11/16/21 20:05 Urine Protein Neg (Negative) 11/16/21 20:05 Urine Glucose (UA) Norm (Normal) 11/16/21 20:05 Urine Ketones Negative (Negative) 11/16/21 20:05 Urine Blood Neg (Negative) 11/16/21 20:05 Urine Nitrate Negative (Negative) 11/16/21 20:05 Urine Bilirubin Neg (Negative) 11/16/21 20:05 Urine Urobilinogen 1 mg/dL (Negative) H 11/16/21 20:05 Ur Leukocyte Esterase 2+ (Negative) H 11/16/21 20:05 Urine RBC 0-4 /hpf (0-2) H 11/16/21 20:05 Urine WBC 10-15 /hpf (0-5) H 11/16/21 20:05 Ur Squamous Epith Cells 0-4 /hpf (0-5) H 11/16/21 20:05 Amorphous Sediment Not Reportable 11/16/21 20:05 Urine Bacteria Trace /hpf (NONE) 11/16/21 20:05 Urine Mucus 2+ /hpf 11/16/21 20:05 Urine Myoglobin Cancelled 11/20/21 11:14 Nasal Influ A H1 2008 PCR Not detected (NOT DETECT) 11/22/21 15:12 Bronch Specimen Source Left lower lobe 11/22/21 13:05 Bronchial Fluid Color Colorless 11/22/21 13:05 Bronchial Fluid Appearance Clear (CLEAR) 11/22/21 13:05 Bronchial Fluid WBC 281 /uL 11/22/21 13:05 Bronchial Fluid RBC 1 10^3/uL 11/22/21 13:05 Bronch Cells Counted 200 11/22/21 13:05 Bronchial Neutrophils 38.00 % (0.9-2.3) H 11/22/21 13:05 Bronchial Lymphocytes 7.00 % (10.71-12.91) L 11/22/21 13:05 Bronchial Eosinophils 2.00 % (0.13-0.25) H 11/22/21 13:05 Bronchial Macrophages 52.00 % (83.6-86.8) L 11/22/21 13:05 Bronchial Other Cells 1 % 11/22/21 13:05 Bronchial Diff Comment Yes 11/22/21 13:05 Vancomycin Trough 14.5 ug/mL (10-15) 11/22/21 16:00 Adenovirus (PCR) Not detected (NOT DETECT) 11/22/21 15:12 C. pneumoniae DNA (PCR) Not detected (NOT DETECT) 11/22/21 15:12 Coronavirus 229E (PCR) Cancelled 11/22/21 16:08 Human Metapneumovir PCR Not detected (NOT DETECT) 11/22/21 15:12 Influenza A (H1) PCR Not detected (NOT DETECT) 11/22/21 15:12 Influenza A (H3) PCR Not detected (NOT DETECT) 11/22/21 15:12 Influenza Type A (PCR) Not detected (NOT DETECT) 11/22/21 15:12 Influenza Type B (PCR) Not detected (NOT DETECT) 11/22/21 15:12 M. pneumoniae (PCR) Not detected (NOT DETECT) 11/22/21 15:12 Parainfluenza 1 (PCR) Not detected (NOT DETECT) 11/22/21 15:12 Parainfluenza 2 (PCR) Not detected (NOT DETECT) 11/22/21 15:12 Parainfluenza 3 (PCR) Not detected (NOT DETECT) 11/22/21 15:12 Parainfluenza 4 (PCR) Not detected (NOT DETECT) 11/22/21 15:12 RSV Type A (PCR) Not detected (NOT DETECT) 11/22/21 15:12 RSV Type B (PCR) Not detected (NOT DETECT) 11/22/21 15:12 Entero/Rhino (PCR) Not detected (NOT DETECT) 11/22/21 15:12 SARS-CoV-2 (PCR) Cancelled 11/22/21 16:08 Blood Type A Negative 11/17/21 16:55 Rho(D) Type Negative 11/17/21 16:55 Antibody Screen Negative 11/17/21 16:55 Crossmatch See Detail 11/17/21 16:55 Micro: Microbiology 11/22/21 13:05 Gram Stain - Final Lung Left Lower Lobe 11/22/21 08:50 Blood Culture - Preliminary Blood NEGATIVE TO DATE 11/22/21 08:45 Blood Culture - Preliminary Blood NEGATIVE TO DATE 11/19/21 12:05 Occult Blood (FIT) - Final Stool A&P Assessment and plan (1) Acute respiratory distress syndrome (ARDS): Status: Acute (2) Sepsis with acute hypoxic respiratory failure: Status: Acute (3) Dysphagia: Status: Acute (4) Aspiration into airway: Status: Acute (5) Lung cancer: Status: Acute (6) COPD (chronic obstructive pulmonary disease): Status: Acute Plan #Acute hypoxic respiratory failure and ARDS in patient with suspected aspiration pneumonia -Currently intubated and connected to ventilator on CMV 420/14/8/45 %-ABG 7.3 9/41/66/2 5/93% -Sedated with propofol and fentanyl 25 MCG -Patient was already on midodrine 5 Mg p.o. every 8 hours -Patient has suspected aspiration event postop day 3-and since then she was requiring supplemental oxygen -CT neck findings are suspicious for left vocal cord paralysis;CT chest showed bilateral diffuse GGO's more predominantly on the left perihilar and left lower lobe areas-with infiltrative consolidation with air bronchograms in left lower lobe -Patient was on Zosyn and due to worsening respiratory status requiring intubation-added vancomycin to broaden coverage-we will send for MRSA nares and if negative will discontinue vancomycin -Other causes of sudden hypoxia were also entertained -especially patient was not on DVT prophylaxis postsurgery due to low H&H PE was considered, however CTA ruled out PE-DVT negative on bilateral venous Doppler; started on Lovenox 40 Mg daily for DVT prophylaxis as later her H&H remained stable in last 72 hours and did not require further transfusions-today H&H is 7.4-we will repeat CBC in the evening and if there is drop-we will transfuse 1 unit to keep H&H greater than 7/21 -Ruled out- TRALI-as symptoms started 36 HRS after last transfusion; -Given bilateral diffuse GGO's-respiratory viral panel and COVID PCR were sent which were negative; Patient is currently not on any immunosuppression-last immunotherapy was February 2020-however, I sent for PCP PCR on BAL and as results take at least 1 week-I started her on atovaquone (patient is allergic to sulfa) and IV steroids (PaO2< 70 and AA gradient> 35)-LDH 386 -Other causes of bilateral GGO's-BNP 5618 ; fluid overload-secondary to TACO (less likely as she received only 2 units of PRBC) are suspected CHF-echo reported normal LV size, systolic function, wall thickness, no regional wall motion abnormalities, normal diastolic function, LVEF 65%. Normal RV size and systolic function. Mild pulmonary hypertension with RVSP 50 to. Mildly increased right atrial size. Structurally normal mitral valve. -We will closely monitor input output and electrolytes and oxygen requirements, try to keep net negative to even fluid balance -S/p bronchoscopy and BAL analysis since neutrophilic predominant-bacterial cultures, fungal cultures, PCP PCR, from left lower lobe are still pending -Once able to taper down FiO2-we will start awakening trial and followed by breathing trial-plan to extubate in next 24 to 48 hours #History of squamous cell cancer of lung-s/p chemoradiation and immunotherapy-last dose February 2020 -Developed rash and so discontinued immunotherapy with pembrolizumab -Surveillance CT scans and PET CT scans-showed no recurrence of lung cancer with stable left perihilar opacity consistent with postradiation fibrosis #Patient has history of COPD and 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 managed by her moth proofer with Breztri 2 puffs twice daily -On DuoNeb every 6 hours as needed #IM nail removal and ORIF left femur-on 11/17/2021 -Stable as per orthopedic -Postop day 2 patient has drop in H&H-received 2 unit transfusion and since it was stable-We will monitor CBC and transfuse if H&H less than 01/04 ICU CHECKLIST: Problem list updated Verbal orders reviewed and signed Analgesia: Fentanyl Glycemic Control: Not required Nutrition: Start on tube feeding Jevity 20 cc/hour Restraint Renewal (within 24 hrs): Yes Ulcer Prophylaxis: PPI Chemical Thromboprophylaxis: Prophylaxis: Lovenox Mechanical Thromboprophylaxis: ICD Need for Central line: Patient had port Need for Diaz catheter: For UOP monitoring Family: Updated at bedside Prognosis: Guarded Code: Full Recommendations conveyed to, RN, RT taking care of the patient Attestations Medical Necessity Statement*: Acute hypoxemic respiratory failure secondary to ARDS due to aspiration pneumonia requiring mechanical ventilation and needs close ICU monitoring Time Spent in Patient Care: Greater than 35 minutes (>than 50% of time spent in counselling and/or direct pt care on unit). Critical Care Time: This patient has a high probability of sudden, clinica lly significant de terioration, which requires the high est level of physi vishal preparedness to intervene urgen tly.? I managed/veloz pervised life or o rgan supporting in terventions that r equired frequent p hysician assessmen t.? I devoted my f ull attention in t he ICU to the dire ct care of this pa tient for the imelda od of time indicat ed above.? Time I spent with family or surrogate(s) is included only if the patient was in capable of providi ng necessary infor mation or particip ating in decision making.? Time ashwini bella to teaching an d to any procedure s I billed separat riaz is not include d. Services Prov ided: Telemetry re view Mechanical Ve ntilation Hemodyna jazzmine interpretation , assessment and m anagement Review a nd interpretation of CXR Review and interpretation of lab values Review and interpretation of microbiologic data and culture r esults Review of m edications and adm inistration Review and interpretatio n of Nutrition req uirements and kathe gement Discussion of management with other consultants and services Clin ical update to [facility] ? Critical Care Time (min): 45 Coding Level of Care Code Established Pt Acute Char Filter Tank Tender Head for Chg Fwd Patient Type Established History Comprehensive Exam Comprehensive Medical Decision Making Moderate Complexity Diagnoses Acute respiratory distress syndrome (ARDS) J80 Sepsis with acute hypoxic respiratory failure A41.9; R65.20; J96.01 Dysphagia R13.10 Aspiration into airway T17.908A Lung cancer C34.90 COPD (chronic obstructive pulmonary disease) J44.9 Time Spent (min) 45
--- NOTE | 2021-11-23 15:45 | PC.OT ---
OT TREATMENT HELD DUE TO PATIENT SEDATION AND INTUBATION. OTR TO CHECK ON PATIENT DAILY TO DETERMINE IF TREATMENT PLAN REMAINS APPROPRIATE
[2021-11-23] MEDS: FUROsemide 10 mg/mL SDV 2mL 20 MG IVP (18:07)
[2021-11-23] MEDS: docusate sodium 100 mg Capsule PO (18:07)
[2021-11-23 20:01] LABS: Basophils % 0.1 %; Hematocrit 21.8 % (37.0-47.0); Hemoglobin 7.3 g/dL (11.5-15.3); Lymphocytes # 0.4 10^3/uL (0.8-4.8); Lymphocytes % 2.9 %; Mean Corpuscular HGB Conc 33.5 g/dL (30.0-36.0); Mean Corpuscular Hemoglobin 29.4 pg (28.0-34.0); Mean Corpuscular Volume 87.9 fl (81-99); Mean Platelet Volume 9.6 fL (7.4-10.4); Monocytes # 0.3 10^3/uL (0.2-0.9); Monocytes % 2.2 %; Neutrophils # 13.06 10^3/uL (1.8-7.7); Neutrophils % 94.2 %; Nucleated Red Blood Cells % 0.1 %; Platelet Count 252 10^3/cmm (130-400); Red Blood Count 2.48 10^6/uL (4.1-5.3); Red Cell Distribution Width 14.6 % (12.1-15.1); White Blood Count 13.9 10^3/uL (4.0-10.0)
[2021-11-23 20:14] LABS: Vancomycin Trough 26.1 ug/mL (10-15)
[2021-11-23 20:35] LABS: Glucose Point of Care 156 mg/dL (70-110)
[2021-11-24] VITALS (108 sets, daily range): BP systolic 90–136; BP diastolic 54–77; PULSE 72–106; RESP 12–23; TEMP 36.7–37.2; O2SAT 81–100; BMI 24.5
[2021-11-24] MEDS: propofol 1,000 MG/100 ML INJ 19.61 MG IV ×3 (00:30→09:42)
--- NOTE | 2021-11-24 00:30 | PC.PHAR ---
Vancomycin trough on dosage of 750mg IVPB every 8 hours is 26.1. Hold for 24 hours and resume at 1gm IVPB every 24 hours with another trough before third 1gm dose.
[2021-11-24] MEDS: ipratropium-albuterol 3 mL Neb INHALATION ×5 (03:11→20:22)
[2021-11-24] MEDS: acetaminophen 500 mg Tablet 1000 MG PO ×2 (03:21→11:36)
[2021-11-24 03:24] LABS: ABG PCO2 46.6 mmHg (35-45); ABG PH Result 7.39 (7.35-7.45); Alveolar-Arterial Oxygen Gradi 19.8 mmHg (5-10); Arterial Blood Gas Hematocrit 22.6 % (37-47); Base Excess ABG 2.5 mmol/L (-2.0-2.0); Blood Gas Allen Test Pos; Blood Gas Operator Identificat MONRO; Blood Gas Sample Site Radial, left; Blood Gas Sample Type Arterial; Blood Gas Tidal Volume 0.42; Carboxyhemoglobin 0.8 %THgb (0.4-20.1); HCO3 ABG 27.9 mmol/L (22-26); HGB O2 Sat 98.7 % (95-100); Ionized Calcium Level - ABG 1.2 mmol/L (1.1-1.4); Methemoglobin 0.3 % (0.4-1.5); Oxygen Device VENT; Oxygen Saturation ABG 99.8; Potassium Level - ABG 3.8 mmol/L (3.5-5.0); Total Hemoglobin 7.4 g/dL (12-16)
[2021-11-24 06:00] LABS: Basophils % 0.1 %; Hematocrit 21.3 % (37.0-47.0); Lymphocytes # 0.4 10^3/uL (0.8-4.8); Lymphocytes % 3.1 %; Mean Corpuscular HGB Conc 32.9 g/dL (30.0-36.0); Mean Corpuscular Volume 88.4 fl (81-99); Monocytes # 0.5 10^3/uL (0.2-0.9); Monocytes % 3.5 %; Neutrophils % 92.5 %; Nucleated Red Blood Cells % 0.1 %; Platelet Count 253 10^3/cmm (130-400); Red Blood Count 2.41 10^6/uL (4.1-5.3); Red Cell Distribution Width 14.7 % (12.1-15.1); White Blood Count 13.4 10^3/uL (4.0-10.0)
[2021-11-24 06:23] LABS: Magnesium 2.6 mg/dL (1.7-2.3)
[2021-11-24] MEDS: midodrine 5 mg TABLET PO (06:23)
[2021-11-24] MEDS: sucralfate 1 gm Tablet PO (06:23)
[2021-11-24] MEDS: piperacillin-tazobactam 3.375 GM in sodium chloride 0.9% (plus) 50 ML IV ×3 (06:24→21:07)
[2021-11-24] MEDS: ARIPiprazole 10 mg Tablet 5 MG PO (08:34)
[2021-11-24] MEDS: sertraline 100 mg Tablet 200 MG PO (08:35)
[2021-11-24] MEDS: docusate sodium 100 mg Capsule PO (08:35)
[2021-11-24] MEDS: chlorhexidine gluconate 0.12% Btl 473 mL 15 ML MUCOUS MEM ×2 (08:51→18:17)
--- NOTE | 2021-11-24 09:30 | PC.NUTR ---
TF consult received. Recommend Jevity 1.2 with a goal rate of 45 mls/hr with flushes of 100 mls Q4H. Current rate of Jevity 1.2 @ 20 mls/hr to be advanced 10 mls/hr Q8H as tolerated until 45 mls/hr is reached. Details in RD assessment.
[2021-11-24] MEDS: pantoprazole 40 mg SDV IVP ×2 (09:42→21:07)
--- NOTE | 2021-11-24 10:22 | PC.CHAP ---
Pastoral Care Encounter/Spiritual Assessment Type of Contact [] Declined breeding technician visit [] Patient/Family/Request visit [] Outpatient visit [] Follow-up visit [] Physician referral [] Code/Alert [x] Routine visit [] Staff referral [] Actively dying [x] Patient sleeping [] Family support [] [] Out of room [] Palliative care [] [x] Receiving care in room [] Pre-surgical visit [] Trauma [] Long length of stay [x] ICU visit [] Other: Relational/Emotional Strength [] Patient feels connected with others/family/visitors/staff [] Distress [] Loneliness/isolation [] Abandonment Spirituality of Patient [] Person of Allison [] Attends Shinto of their Allison [] Believes in Prayer [] Reads Bible or Religion materials [] There are Spiritual issues to be addressed Silverer Interventions [x] Prayer [] Active listening [] Non-anxious presence [] Spiritual/emotional support [] Crisis/trauma care [] Spiritual counseling [] Bereavement support [] Provided bereavement packet [] Provided Bible/devotional materials [] Provided toy/stuffed animal, coloring book to patient or family member [] Provided Communion [] Anointing/[place] [] Salvation [x] Completed spiritual assessment [] Other: Impact on Illness or Injury [] Angry [] Fearful [] Anxious [] Often cries [] Exhaustion [] Unable to work [] Unable to attend latter day [] Unable to walk/stand [] Unable to read [] Unable to drive [] Unable to eat/drink [] Unable to sleep [] Unable to be with family [] Patient intubated [] Other: Summary Time spent with patient
[2021-11-24] MEDS: sodium chloride 0.9% (100 ml) 100 ML 25 ML (11:23)
--- NOTE | 2021-11-24 11:38 | P.PN_ITS ---
Subjective Subjective: Seen this morning. Intubated sedated. PF ratio improved. On propofol and fentanyl. FiO2 30%. Hemoglobin 7. 1 unit RBC ordered. Vitals/I&O/Wt Last Vital Signs Temp 98.9 F 11/24/21 11:17 Pulse 97 11/24/21 11:21 Resp 16 11/24/21 11:17 BP 130/70 11/24/21 11:17 Pulse Ox 97 11/24/21 11:17 11/23/21 11/24/21 11/24/21 22:59 06:59 14:59 Intake Total 337.328 / 868.320 760 / 1628.320 378.452 / 378.452 Output Total 550 / 550 900 / 1450 Balance -212.672 / 318.320 -140 / 178.320 378.452 / 378.452 Weight last 48 hrs Weight 65 kg Weight 65.771 kg Physical Exam Narrative: General: Intubated sedated Cardio: Regular rate rhythm, normal S1-S2 Respiratory: Clear to auscultation bilaterally, GI: Abdomen soft, nontender, nondistended, bowel sounds + Extremities: no edema, no cyanosis.? Bandage left thigh appears clean.? No drainage noted.? Pulses present bilateral lower extremities.? hill in place Urinary Catheter Management: Hill: Cath Placed During This Visit: yes Reason for Continuing Indwelling Catheter: Accurate Measurement of Urinary Output in Critically Ill Patients Urinary Catheter Date of Insertion: 11/16/21 Urinary Catheter Time of Insertion: 23:59 Data : 11/24/21 04:45 11/23/21 08:17 Micro: Microbiology 11/23/21 17:45 MRSA Culture - Final Nose 11/22/21 13:05 Gram Stain - Final Lung Left Lower Lobe 11/22/21 08:50 Blood Culture - Preliminary Blood NEGATIVE TO DATE 11/22/21 08:45 Blood Culture - Preliminary Blood NEGATIVE TO DATE A&P Assessment and plan (1) Sepsis with acute hypoxic respiratory failure: Status: Acute (2) Respiratory failure: Status: Acute (3) Ventilator dependent: Status: Acute (4) Acute respiratory distress syndrome (ARDS): Status: Acute (5) Dysphagia: Status: Acute (6) Pneumonia: Status: Acute (7) Aspiration into airway: Status: Acute (8) 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 Patient underwent hardware removal with Dr. Stephens.? She also had a lateral femoral plate placed. -Postop day 2 hemoglobin dropped to 5.2.? She is status post 2 units packed RBC.? Blood given on 11/19.? Hemoglobin 7.0 today 1 more unit packed RBC ordered. Lasix 20 ordered to be given right after. ? Chest CT consistent with ARDS.? Unsure if this is aspiration versus PCP versus COVID.? TACO low on the differential. -Possibility of vaping induced lung injury as well. -BNP 5000.? Echocardiogram normal EF ? PF ratio improving.? Continue to wean down FiO2 ? Continue atovaquone. ? Continue steroids ? Continue vancomycin and Zosyn.? Sputum culture Gram stain, PCP bronchoalveolar lavage, other sputum studies pending ? MRSA nares positive ? Patient does have left vocal cord paralysis evidenced on neck CT.? This most likely contributed to her aspiration. -CTA ruled out PE, DVT also ruled out. ? Blood cultures negative to date, urine culture pending ? MRSA nares swab pending ? COVID and respiratory panel negative. -We will closely monitor input output and electrolytes and oxygen requirements, try to keep net negative to even fluid balance -S/p bronchoscopy and BAL analysis since neutrophilic predominant-bacterial cultures, fungal cultures, PCP PCR, from left lower lobe are still pending -Once able to taper down FiO2-we will start awakening trial and followed by breathing trial-plan to extubate in next 24 to 48 hours -Pulmonology consulted.? Appreciate recommendations. -Plan to do weaning trial today and potentially extubate patient. RN aware. We will start weaning off sedation and wake up the patient. Full code Mother Linnette would make medical decisions if needed: [phone] Family updated at bedside. Attestations Medical Necessity Statement*: Intubated sedated in ICU.? Requires ICU level care.? Hospital stay expected to exceed 72 hours at this point.? Pending clinical improvement. 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
--- NOTE | 2021-11-24 12:23 | XRR_ITS ---
PROCEDURE INFORMATION: Exam: XR Chest Exam date and time: 11/24/2021 12:43 PM Age: 51 years old Clinical indication: Device placement; Other: Pre-extubation TECHNIQUE: Imaging protocol: XR of the chest. Views: 1 view. COMPARISON: CR XR chest 1V portable [id number] 11/22/2021 11:46 AM FINDINGS: Lungs: There is improved aeration throughout both lungs compared to prior study. The diffuse parenchymal densities in both lungs have now decreased these changes correlated with pulmonary edema Pleural spaces: Unremarkable. No pleural effusion. No pneumothorax. Heart/Mediastinum: Unremarkable. No cardiomegaly. Bones/joints: Metallic surgical hardware is seen in the cervical spine stable since prior Endotracheal tube is present 2.9 cm above the jae. There is a left side central line extending into the SVC. NG tube extends into the stomach. XR/XR chest 1V portable [id number] IMPRESSION: 1. Decreased pulmonary edema in both lung since prior examination. 2. Endotracheal tube is above the jae. 3. Left central line is in the SVC. 4. NG tube is in the stomach. 5. Metallic surgical hardware in the cervical spine
[2021-11-24] MEDS: FUROsemide 10 mg/mL SDV 2mL 20 MG IVP (13:56)
[2021-11-24] MEDS: enoxaparin 40 mg/0.4 mL Syringe SUBCUT (13:56)
--- NOTE | 2021-11-24 16:21 | P.PN_ITS ---
Subjective Subjective: -Patient seen multiple times at bedside -PF ratio improved-FiO2 down to 30%-tolerated awakening and breathing trial and successfully extubated to 3 L nasal cannula -Other labs and imaging reviewed -Hemoglobin 01/04-received 1 unit PRBC and Lasix -Appears slightly hemodynamically stable -Recommended speech for bedside evaluation prior to starting feeding and can be transferred to floor tomorrow Medications: Reviewed: Yes Vitals/I&O/Wt Last Vital Signs Temp 99.0 F 11/24/21 13:30 Pulse 95 11/24/21 14:00 Resp 16 11/24/21 13:30 BP 131/60 11/24/21 14:00 Pulse Ox 89 L 11/24/21 14:00 11/24/21 11/24/21 11/24/21 06:59 14:59 22:59 Intake Total 760 / 6465.282 6187.542 / 1149.542 100 / 1249.542 Output Total 900 / 1450 Balance -140 / 634.694 8486.542 / 1149.542 100 / 1249.542 Weight last 48 hrs Weight 143 lb 4.8 oz Weight 145 lb Physical Exam Narrative: PHYSICAL EXAM: General: lying in bed, sedated and intubated. HEENT:NCAT, PERRLA, EOMI Neck: Supple Lungs: Clear, Heart: s1/s2, RRR Abd: soft, NT, ND, BS + Normoactive Extremities: No edema DIRECTOR INPATIENT HEADACHE PROGRAM: sedated and limited DIRECTOR INPATIENT HEADACHE PROGRAM exam possible. SKIN: no rash LDA: # CVC: Left subclavian central line Urinary Catheter Management: Diaz: Cath Placed During This Visit: yes Reason for Continuing Indwelling Catheter: Accurate Measurement of Urinary Output in Critically Ill Patients Urinary Catheter Date of Insertion: 11/16/21 Urinary Catheter Time of Insertion: 23:59 Data : 11/25/21 03:05 11/25/21 03:05 Other Labs: Radiology Impressions Knee X-Ray 11/16/21 14:13 IMPRESSION: Acute or subacute on chronic distal femoral fractures with fractured displaced distal fixation screws and displaced intramedullary kari protruding through the anterior cortex of the femur. The tip of the kari lies 6 mm above the patella, possibly within the joint. Tibia/Fibula X-Ray 11/16/21 14:13 IMPRESSION: 1. Intact lower leg. 2. Femoral intramedullary kari protrudes through the anterior cortex of the distal femur just above the patella. Findings suggest distal femoral fracture of indeterminate acuity. Femur X-Ray 11/17/21 21:23 IMPRESSION: 1. Fixation hardware appears intact. 2. Prominent soft tissue swelling overlying the left hip with expected postsurgical subcutaneous emphysema. Chest CTA 11/21/21 13:21 IMPRESSION: 1. No evidence of pulmonary embolus. 2. Hazy groundglass infiltrates in the LEFT greater than RIGHT perihilar regions and LEFT greater than RIGHT lower lobes with interlobular septal thickening. Findings can be seen with ARDS, pulmonary edema, and viral pneumonia. Recommend correlation with infectious or inflammatory etiologies including Covid 19 pneumonia. 3. Small bilateral pleural effusions with compressive atelectasis in the lung bases. 4. Partial airspace consolidation in the LEFT lower lobe with air bronchograms consistent with pneumonia measuring 4.6 x 2.7 cm 5. 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 This is unchanged since the prior examination. 6. Progressed soft tissue thickening along the RIGHT hilum and suprahilar likely due to radiation fibrosis. 7. No progressive lymphadenopathy. Neck CT 11/21/21 13:21 IMPRESSION: 1. Above findings suspicious for LEFT vocal cord paralysis described above. Recommend further evaluation with endoscopy. 2. Otherwise no evidence of supraglottic or glottic mass. Subglottic airway is patent. 3. No cervical lymphadenopathy. A few prominent LEFT greater than RIGHT supraclavicular lymph nodes nonspecific but may be reactive. 4. Salivary glands are normal. 5. Mild sphenoid sinusitis. 6. Soft tissue thickening in the LEFT upper lobe likely due to radiation fibrosis. Described on the recent chest CT. 7. Groundglass infiltrates in the lung apices also described on the chest CT. Chest X-Ray 11/24/21 12:23 IMPRESSION: 1. Decreased pulmonary edema in both lung since prior examination. 2. Endotracheal tube is above the jae. 3. Left central line is in the SVC. 4. NG tube is in the stomach. 5. Metallic surgical hardware in the cervical spine Laboratory Results WBC 15.4 10^3/uL (4.0-10.0) H 11/25/21 03:05 RBC 2.89 10^6/uL (4.1-5.3) L 11/25/21 03:05 Hgb 8.4 g/dL (11.5-15.3) L 11/25/21 03:05 Hct 25.4 % (37.0-47.0) L 11/25/21 03:05 MCV 87.9 fl (81-99) 11/25/21 03:05 MCH 29.1 pg (28.0-34.0) 11/25/21 03:05 MCHC 33.1 g/dL (30.0-36.0) 11/25/21 03:05 RDW 14.7 % (12.1-15.1) 11/25/21 03:05 Plt Count 262 10^3/cmm (130-400) 11/25/21 03:05 MPV 11.7 fL (7.4-10.4) H 11/25/21 03:05 Neut % (Auto) 88.4 % 11/25/21 03:05 Lymph % (Auto) 8.0 % 11/25/21 03:05 Sunflower % (Auto) 2.7 % 11/25/21 03:05 Eos % (Auto) 0.0 % 11/25/21 03:05 Baso % (Auto) 0.1 % 11/25/21 03:05 Neut # (Auto) 13.62 10^3/uL (1.8-7.7) H 11/25/21 03:05 Lymph # (Auto) 1.2 10^3/uL (0.8-4.8) 11/25/21 03:05 Sunflower # (Auto) 0.4 10^3/uL (0.2-0.9) 11/25/21 03:05 Eos # (Auto) 0.0 10^3/uL (0.0-0.8) 11/25/21 03:05 Baso # (Auto) 0.0 10^3/uL (0.0-0.1) 11/25/21 03:05 Nucleated RBC % (auto) 0 % 11/25/21 03:05 Total Counted 100 (0-100) 11/22/21 08:45 Atypical Lymphs % Not Reportable 11/22/21 08:45 Absolute Neutrophils 14.9 10^3/cmm (1.4-6.5) H 11/22/21 08:45 Segmented Neutrophils 74 % 11/22/21 08:45 Abs Segm Neuts (Man) 12.3 10/cmm (1.6-7.1) H 11/22/21 08:45 Band Neutrophils 16.0 % 11/22/21 08:45 Abs Band Neuts (Man) 2.7 10^3/cmm (0.0-1.2) H 11/22/21 08:45 Lymphocytes (Manual) 5 % 11/22/21 08:45 Monocytes (Manual) 5.0 % 11/22/21 08:45 Absolute Monocytes 0.8 10^3/cmm (0.1-0.6) H 11/22/21 08:45 Eosinophils (Manual) 0 % 11/22/21 08:45 Absolute Eosinophils 0.0 10^3/cmm (0.0-0.7) 11/22/21 08:45 Basophils (Manual) Not Reportable 11/22/21 08:45 Nucleated RBCs # 0.0 /100WBC 11/25/21 03:05 Platelet Estimate Normal (Normal) 11/22/21 08:45 Polychromasia Trace 11/22/21 08:45 Macrocytosis 1+ H 11/22/21 08:45 ESR 41 mm/hr (0-15) H 11/22/21 08:45 PT 16.00 SECONDS (12.1-14.9) H 11/19/21 Unknown INR 1.25 (0.8-1.2) H 11/19/21 Unknown Specimen Type Arterial 11/24/21 03:10 Sample Site Radial, left 11/24/21 03:10 ABG pH 7.39 (7.35-7.45) 11/24/21 03:10 ABG pCO2 46.6 mmHg (35-45) H 11/24/21 03:10 ABG pO2 144.0 mmHg (80.0-100.0) H 11/24/21 03:10 ABG HCO3 27.9 mmol/L (22-26) H 11/24/21 03:10 ABG O2 Saturation 99.8 11/24/21 03:10 ABG Base Excess 2.5 mmol/L (-2.0-2.0) H 11/24/21 03:10 Tramaine Test Pos 11/24/21 03:10 A-a O2 Gradient 19.8 mmHg (5-10) H 11/24/21 03:10 Hematocrit 22.6 % (37-47) L 11/24/21 03:10 Hgb O2 Saturation 98.7 % (95-100) 11/24/21 03:10 Carboxyhemoglobin 0.8 %THgb (0.4-20.1) 11/24/21 03:10 Methemoglobin 0.3 % (0.4-1.5) L 11/24/21 03:10 Total Hemoglobin 7.4 g/dL (12-16) L 11/24/21 03:10 Sodium 143.0 mmol/L (131-143) 11/24/21 03:10 Potassium 3.8 mmol/L (3.5-5.0) 11/24/21 03:10 Glucose 131.0 mg/dL (70-115) H 11/24/21 03:10 Ionized Calcium 1.2 mmol/L (1.1-1.4) 11/24/21 03:10 O2 Delivery Device Vent 11/24/21 03:10 O2 Liters/Min 15.0 % 11/22/21 05:32 FiO2 50.0 % 11/24/21 03:10 Tidal Volume 0.42 11/24/21 03:10 PEEP 8.0 cmH20 11/24/21 03:10 Head Paper Tester ID [place] 11/24/21 03:10 Sodium 143 mmol/L (136-145) 11/25/21 03:05 Potassium 3.8 mmol/L (3.5-5.1) 11/25/21 03:05 Chloride 106 mmol/L (98-107) 11/25/21 03:05 Carbon Dioxide 27 mmol/L (22-29) 11/25/21 03:05 Anion Gap 13.8 (5-19) 11/25/21 03:05 BUN 36 mg/dL (6-20) H 11/25/21 03:05 Creatinine 0.9 mg/dL (0.5-0.9) 11/25/21 03:05 GFR Calculation 65.5 mL/min (90-130) L 11/25/21 03:05 Glucose 96 mg/dL (65-115) 11/25/21 03:05 POC Glucose 116 mg/dL (70-110) H 11/24/21 19:53 Calculated Osmolality 304 mOsm/kg (285-295) H 11/25/21 03:05 Calcium 8.4 mg/dL (8.5-10.5) L 11/25/21 03:05 Phosphorus 4.1 mg/dL (2.5-4.5) 11/17/21 02:03 Magnesium 2.2 mg/dL (1.7-2.3) 11/25/21 03:05 Total Bilirubin 0.3 mg/dL (0.15-1.2) 11/25/21 03:05 AST 27 U/L (0-32) 11/25/21 03:05 ALT 11 U/L (0-33) 11/25/21 03:05 Alkaline Phosphatase 95 IU/L (35-105) 11/25/21 03:05 Lactate Dehydrogenase 386 U/L (135-214) H 11/23/21 03:11 Creatine Kinase Cancelled 11/20/21 03:34 C-Reactive Protein 210.9 mg/L (0.0-4.9) H 11/22/21 16:00 NT-Pro-B Natriuret Pep 5618 pg/mL (0-125) H 11/22/21 16:00 Total Protein 6.5 g/dL (6.6-8.7) L 11/25/21 03:05 Albumin 2.8 g/dL (3.5-5.2) L 11/25/21 03:05 Globulin 3.7 g/dL (1.3-4.6) 11/25/21 03:05 Procalcitonin 0.46 ng/mL (0-0.5) 11/21/21 09:05 Urine Color Yellow (Yellow) 11/16/21 20:05 Urine Appearance Clear (CLEAR) 11/16/21 20:05 Urine pH 5 (5-7) 11/16/21 20:05 Ur Specific [place] 1.020 (1.005-1.030) 11/16/21 20:05 Urine Protein Neg (Negative) 11/16/21 20:05 Urine Glucose (UA) Norm (Normal) 11/16/21 20:05 Urine Ketones Negative (Negative) 11/16/21 20:05 Urine Blood Neg (Negative) 11/16/21 20:05 Urine Nitrate Negative (Negative) 11/16/21 20:05 Urine Bilirubin Neg (Negative) 11/16/21 20:05 Urine Urobilinogen 1 mg/dL (Negative) H 11/16/21 20:05 Ur Leukocyte Esterase 2+ (Negative) H 11/16/21 20:05 Urine RBC 0-4 /hpf (0-2) H 11/16/21 20:05 Urine WBC 10-15 /hpf (0-5) H 11/16/21 20:05 Ur Squamous Epith Cells 0-4 /hpf (0-5) H 11/16/21 20:05 Amorphous Sediment Not Reportable 11/16/21 20:05 Urine Bacteria Trace /hpf (NONE) 11/16/21 20:05 Urine Mucus 2+ /hpf 11/16/21 20:05 Urine Myoglobin Cancelled 11/20/21 11:14 Nasal Influ A H1 2008 PCR Not detected (NOT DETECT) 11/22/21 15:12 Bronch Specimen Source Left lower lobe 11/22/21 13:05 Bronchial Fluid Color Colorless 11/22/21 13:05 Bronchial Fluid Appearance Clear (CLEAR) 11/22/21 13:05 Bronchial Fluid WBC 281 /uL 11/22/21 13:05 Bronchial Fluid RBC 1 10^3/uL 11/22/21 13:05 Bronch Cells Counted 200 11/22/21 13:05 Bronchial Neutrophils 38.00 % (0.9-2.3) H 11/22/21 13:05 Bronchial Lymphocytes 7.00 % (10.71-12.91) L 11/22/21 13:05 Bronchial Eosinophils 2.00 % (0.13-0.25) H 11/22/21 13:05 Bronchial Macrophages 52.00 % (83.6-86.8) L 11/22/21 13:05 Bronchial Other Cells 1 % 11/22/21 13:05 Bronchial Diff Comment Yes 11/22/21 13:05 Vancomycin Trough 26.1 ug/mL (10-15) H* 11/23/21 19:19 Adenovirus (PCR) Not detected (NOT DETECT) 11/22/21 15:12 C. pneumoniae DNA (PCR) Not detected (NOT DETECT) 11/22/21 15:12 Coronavirus 229E (PCR) Cancelled 11/22/21 16:08 Human Metapneumovir PCR Not detected (NOT DETECT) 11/22/21 15:12 Influenza A (H1) PCR Not detected (NOT DETECT) 11/22/21 15:12 Influenza A (H3) PCR Not detected (NOT DETECT) 11/22/21 15:12 Influenza Type A (PCR) Not detected (NOT DETECT) 11/22/21 15:12 Influenza Type B (PCR) Not detected (NOT DETECT) 11/22/21 15:12 M. pneumoniae (PCR) Not detected (NOT DETECT) 11/22/21 15:12 Parainfluenza 1 (PCR) Not detected (NOT DETECT) 11/22/21 15:12 Parainfluenza 2 (PCR) Not detected (NOT DETECT) 11/22/21 15:12 Parainfluenza 3 (PCR) Not detected (NOT DETECT) 11/22/21 15:12 Parainfluenza 4 (PCR) Not detected (NOT DETECT) 11/22/21 15:12 RSV Type A (PCR) Not detected (NOT DETECT) 11/22/21 15:12 RSV Type B (PCR) Not detected (NOT DETECT) 11/22/21 15:12 Entero/Rhino (PCR) Not detected (NOT DETECT) 11/22/21 15:12 SARS-CoV-2 (PCR) Cancelled 11/22/21 16:08 Blood Type A Negative 11/24/21 07:59 Rho(D) Type Negative 11/24/21 07:59 Antibody Screen Negative 11/24/21 07:59 Crossmatch See Detail 11/24/21 07:59 Micro: Microbiology 11/22/21 13:05 Gram Stain - Final Lung Left Lower Lobe Bronchoalveolar Lavage Culture - Preliminary 11/23/21 17:45 MRSA Culture - Final Nose A&P Assessment and plan (1) Acute respiratory distress syndrome (ARDS): Status: Acute (2) Sepsis with acute hypoxic respiratory failure: Status: Acute (3) Dysphagia: Status: Acute (4) Aspiration into airway: Status: Acute (5) Lung cancer: Status: Acute (6) COPD (chronic obstructive pulmonary disease): Status: Acute Plan #Acute hypoxic respiratory failure and ARDS in patient with suspected aspiration pneumonia-improving -Patient has suspected aspiration event postop day 3-and since then she was requiring supplemental oxygen -intubated 12/14/2021-successfully extubated to 3 L nasal cannula today-patient awake and following commands -Patient was already on midodrine 5 Mg p.o. every 8 hours -CT neck findings are suspicious for left vocal cord paralysis;CT chest showed bilateral diffuse GGO's more predominantly on the left perihilar and left lower lobe areas-with infiltrative consolidation with air bronchograms in left lower lobe -Patient was on Zosyn; MRSA nares positive-currently on vancomycin to broaden coverage-DC antibiotics after 7 days -Other causes of sudden hypoxia were also entertained -especially patient was not on DVT prophylaxis postsurgery due to low H&H PE was considered, however CTA ruled out PE-DVT negative on bilateral venous Doppler; - started on Lovenox 40 Mg daily for DVT prophylaxis-gradual drop in H&H to 7 again and transfused 1 unit to keep H&H greater than 7/21-external examination did not show any significant swelling or hematoma in the left hip area but recommended orthopedic to have a look at surgical site for bleeding -Given bilateral diffuse GGO's-respiratory viral panel and COVID PCR were sent which were negative;however, I sent for PCP PCR on BAL and as results take at least 1 week-I started her on atovaquone (patient is allergic to sulfa) and IV steroids (PaO2< 70 and AA gradient> 35)-LDH 386 --worse patient started clinically improving even before starting atovaquone-I will discontinue and wait for BAL PCP PCR and also recommended to taper down steroids -Other causes of bilateral GGO's-BNP 5618 ; fluid overload-secondary to TACO (less likely as she received only 2 units of PRBC) - ECHO reported normal LV size, systolic function, wall thickness, no regional wall motion abnormalities, normal diastolic function, LVEF 65%. Normal RV size and systolic function. Mild pulmonary hypertension with RVSP 50 to. Mildly increased right atrial size. Structurally normal mitral valve. -We will closely monitor input output and electrolytes and oxygen requirements, try to keep net negative to even fluid balance -S/p bronchoscopy and BAL analysis since neutrophilic predominant-bacterial cultures, fungal cultures, PCP PCR, from left lower lobe are still pending #History of squamous cell cancer of lung-s/p chemoradiation and immunotherapy- last dose February 2020 -Developed rash and so discontinued immunotherapy with pembrolizumab -Surveillance CT scans and PET CT scans-showed no recurrence of lung cancer with stable left perihilar opacity consistent with postradiation fibrosis #Patient has history of COPD and being managed by her chicken hanger with Breztri 2 puffs twice daily -On DuoNeb every 6 hours as needed #IM nail removal and ORIF left femur-on 11/17/2021 -Stable as per orthopedic -Postop day 2 patient has drop in H&H-received 2 unit transfusion and since it was stable -Received another unit PRBC again today for hemoglobin 7-we will monitor CBC and transfuse if H&H less than 01/04 -Recommended to let Ortho follow-up ICU CHECKLIST: Problem list updated Verbal orders reviewed and signed Analgesia: Fentanyl Glycemic Control: Not required Nutrition: N.p.o. until speech evaluation Restraint Renewal (within 24 hrs): Yes Ulcer Prophylaxis: PPI Chemical Thromboprophylaxis: Prophylaxis: Lovenox Mechanical Thromboprophylaxis: ICD Need for Central line: Patient had port Need for Diaz catheter: Can remove Diaz after extubation Family: Updated at bedside Prognosis: Guarded Code: Full Recommendations conveyed to, RN, RT taking care of the patient Attestations Medical Necessity Statement*: Acute hypoxemic respiratory failure secondary to ARDS due to aspiration pneumonia-successfully extubated-May need 1 to 2 days hospitalization for observation and social service manager evaluation rehab placement Time Spent in Patient Care: Greater than 35 minutes (>than 50% of time spent in counselling and/or direct pt care on unit) . Critical Care Time: This patient has a high probability of sudden, clinica lly significant de terioration, which requires the high est level of physi vishal preparedness to intervene urgen tly.? I managed/veloz pervised life or o rgan supporting in terventions that r equired frequent p hysician assessmen t.? I devoted my f ull attention in t he ICU to the dire ct care of this pa tient for the imelda od of time indicat ed above.? Time I spent with family or surrogate(s) is included only if the patient was in capable of providi ng necessary infor mation or particip ating in decision making.? Time ashwini bella to teaching an d to any procedure s I billed separat riaz is not include d. Services Prov ided: Telemetry re view Mechanical Ve ntilation Hemodyna jazzmine interpretation , assessment and m anagement Review a nd interpretation of CXR Review and interpretation of lab values Review and interpretation of microbiologic data and culture r esults Review of m edications and adm inistration Review and interpretatio n of Nutrition tyler torres and kathe ribera Discussion of management with other consultants and services Clin ical update to [facility] members ? Critical Care Time (min): 65 Coding Level of Care Code Established Pt Acute Farm Equipment Engineer for Chg Fwd Patient Type Established History Comprehensive Exam Comprehensive Medical Decision Making High Complexity Diagnoses Acute respiratory distress syndrome (ARDS) J80 Sepsis with acute hypoxic respiratory failure A41.9; R65.20; J96.01 Dysphagia R13.10 Aspiration into airway T17.908A Lung cancer C34.90 COPD (chronic obstructive pulmonary disease) J44.9 Time Spent (min) 65
[2021-11-24] MEDS: vancomycin 1,000 MG in sodium chloride 0.9% 250 ML 250 MG IV (18:17)
[2021-11-24 19:58] LABS: Glucose Point of Care 116 mg/dL (70-110)
[2021-11-24] MEDS: morphine 4 mg/mL SDV 1 mL 1 MG IVP (20:22)
--- NOTE | 2021-11-24 21:47 | PC.NURSE ---
Midodrine Patient strictly NPO following her first speech eval; 5 mg Midodrine PO due at 2230. Patient's blood pressure remaining stable, Dr. Shields contacted and order received to hold evening dose.
[2021-11-25] VITALS (72 sets, daily range): BP systolic 99–125; BP diastolic 50–77; PULSE 80–103; RESP 15–31; TEMP 36.8–37.7; O2SAT 81–97; BMI 24.0
[2021-11-25] MEDS: ipratropium-albuterol 3 mL Neb INHALATION ×6 (00:03→20:09)
[2021-11-25] MEDS: morphine 4 mg/mL SDV 1 mL 1 MG IVP ×3 (02:39→16:41)
[2021-11-25 03:28] LABS: Basophils % 0.1 %; Hematocrit 25.4 % (37.0-47.0); Hemoglobin 8.4 g/dL (11.5-15.3); Lymphocytes # 1.2 10^3/uL (0.8-4.8); Mean Corpuscular HGB Conc 33.1 g/dL (30.0-36.0); Mean Corpuscular Hemoglobin 29.1 pg (28.0-34.0); Mean Corpuscular Volume 87.9 fl (81-99); Mean Platelet Volume 11.7 fL (7.4-10.4); Monocytes # 0.4 10^3/uL (0.2-0.9); Monocytes % 2.7 %; Neutrophils # 13.62 10^3/uL (1.8-7.7); Neutrophils % 88.4 %; Nucleated Red Blood Cells % 0 %; Platelet Count 262 10^3/cmm (130-400); Red Blood Count 2.89 10^6/uL (4.1-5.3); Red Cell Distribution Width 14.7 % (12.1-15.1); White Blood Count 15.4 10^3/uL (4.0-10.0)
[2021-11-25 03:48] LABS: Alanine Aminotransferase 11 U/L (0-33); Albumin Level 2.8 g/dL (3.5-5.2); Alkaline Phosphatase 95 IU/L (35-105); Anion Gap 13.8 (5-19); Aspartate Amino Transferase 27 U/L (0-32); Blood Urea Nitrogen 36 mg/dL (6-20); Calcium 8.4 mg/dL (8.5-10.5); Carbon Dioxide 27 mmol/L (22-29); Chloride 106 mmol/L (98-107); Globulin 3.7 g/dL (1.3-4.6); Glomerular Filtration Rate 65.5 mL/min (90-130); Glucose 96 mg/dL (65-115); Magnesium 2.2 mg/dL (1.7-2.3); Osmolality Calculated 304 mOsm/kg (285-295); Potassium 3.8 mmol/L (3.5-5.1); Sodium 143 mmol/L (136-145); Total Bilirubin 0.3 mg/dL (0.15-1.2); Total Protein 6.5 g/dL (6.6-8.7)
[2021-11-25] MEDS: piperacillin-tazobactam 3.375 GM in sodium chloride 0.9% (plus) 50 ML IV ×3 (05:43→22:23)
--- NOTE | 2021-11-25 07:46 | XRR_ITS ---
PROCEDURE INFORMATION: Exam: XR Chest Exam date and time: 11/25/2021 11:58 AM Age: 51 years old Clinical indication: Condition or disease; Other: Post surgery for knee, follow up; Additional info: Follow up xray TECHNIQUE: Imaging protocol: XR of the chest. Views: 1 view. COMPARISON: CR XR chest 1V portable [id number] 11/24/2021 12:43 PM FINDINGS: Tubes, catheters and devices: A MediPort catheter is present with the tip projecting in the SVC. Lungs: There are diffuse bilateral interstitial pulmonary infiltrates which are unchanged. No new consolidation is seen. Pleural spaces: Unremarkable. No pleural effusion. No pneumothorax. Heart/Mediastinum: Unremarkable. No cardiomegaly. Bones/joints: Unremarkable. XR/XR chest 1V portable [id number] IMPRESSION: Bilateral interstitial pulmonary infiltrates unchanged.
--- NOTE | 2021-11-25 08:21 | CTR_ITS ---
PROCEDURE INFORMATION: Exam: CT Abdomen And Pelvis With Contrast Exam date and time: 11/25/2021 1:53 PM Age: 51 years old Clinical indication: Abdominal tenderness; Prior surgery; Surgery date: 3-7 days post-operative; Surgery type: Left hip; Additional info: Look for bleeding source/hemmorhage TECHNIQUE: Imaging protocol: Computed tomography of the abdomen and pelvis with contrast. Radiation optimization: All CT scans at this facility use at least one of these dose optimization techniques: automated exposure control; mA and/or kV adjustment per patient size (includes targeted exams where dose is matched to clinical indication); or iterative reconstruction. Contrast material: OMNIPAQUE 350; Contrast volume: 80 ml; Contrast route: INTRAVENOUS (IV); COMPARISON: CT chest abd pel w con* 09/07/2020 11:17 AM RADIATION DOSE METRICS: Total DLP (mGy-cm): 1108.27 FINDINGS: Lungs: There are diffuse interstitial infiltrates in the lung bases. The heart is not enlarged. There is calcification of the coronary arteries. Pleural spaces: Moderate left pleural effusion with a subpulmonic component. Small right pleural effusion. Liver: Normal. No mass. Gallbladder and bile ducts: Normal. No calcified stones. No ductal dilation. Pancreas: Normal. No ductal dilation. Spleen: Normal. No splenomegaly. Adrenal glands: Normal. No mass. Kidneys and ureters: Normal. No hydronephrosis. Stomach and bowel: Unremarkable. No obstruction. No mucosal thickening. Appendix: No evidence of appendicitis. Intraperitoneal space: Unremarkable. No free air. No significant fluid collection. Vasculature: There is calcification of the aorta and iliac arteries. There is no abdominal aortic aneurysm. Lymph nodes: Unremarkable. No enlarged lymph nodes. Urinary bladder: The urinary bladder is collapsed around a Diaz catheter. A small amount of air is present in the urinary bladder consistent with the presence of the catheter. Reproductive: Unremarkable as visualized. Bones/joints: There is radiolucency in the left femoral neck and proximal femur consistent with the recent removal of orthopedic hardware. There is hazy infiltration of the subcutaneous fat lateral to the left hip and pelvis consistent with small subcutaneous hemorrhage. Soft tissues: No large fluid collections, abscesses or hematomas are seen. CT/CT abdomen pelvis w con* [id number] IMPRESSION: 1. No active hemorrhage is seen. No large hematoma is identified. 2. Postsurgical changes in the left hip consistent with removal of surgical hardware and small subcutaneous hemorrhage over the left side of the pelvis and hips. 3. Bilateral pleural effusions larger on the left side. 4. Prominent bilateral interstitial pulmonary infiltrates. This could be due to interstitial edema from heart failure but an interstitial pneumonia should also be considered. 5. Coronary artery calcification.
--- NOTE | 2021-11-25 08:35 | CTR_ITS ---
PROCEDURE INFORMATION: Exam: CT Left Lower Extremity With Contrast, Hip Exam date and time: 11/25/2021 1:59 PM Age: 51 years old Clinical indication: Pain; Hip; Left; Prior surgery; Surgery date: 3-7 days post-operative; Additional info: Bleeding source TECHNIQUE: Imaging protocol: CT of the Left lower extremity with intravenous contrast was performed. Exam focused on the hip. Radiation optimization: All CT scans at this facility use at least one of these dose optimization techniques: automated exposure control; mA and/or kV adjustment per patient size (includes targeted exams where dose is matched to clinical indication); or iterative reconstruction. Contrast material: OMNIPAQUE 350; Contrast volume: 40 ml; Contrast route: INTRAVENOUS (IV); COMPARISON: CR XR hip LT 2-3V wo/w pel* [id number] 10/04/2021 10:31 AM RADIATION DOSE METRICS: Total DLP (mGy-cm): 1298.06 FINDINGS: Bones/joints: The there is well-defined radiolucency in the left femoral neck and proximal femur consistent with removed recent removal of a femoral neck pin and intramedullary kari. No fracture or other acute bony abnormality is seen. Soft tissues: There is subcutaneous infiltration of the fat over the left side of the hip consistent with small hematoma related to the recent surgery. No large fluid collection mass or large hematoma seen. CT/CT hip LT w con [id number] IMPRESSION: 1. Postsurgical changes consistent with recent removal of metal hardware for old fracture. 2. Subcutaneous infiltration over the left side of the hip consistent with small subcutaneous hemorrhage related to surgery. 3. No large hematomas are seen.
[2021-11-25] MEDS: pantoprazole 40 mg SDV IVP ×2 (10:22→22:13)
--- NOTE | 2021-11-25 10:40 | PC.SOCIAL ---
IMM update IMM updated with patient. Verbalized an understanding. Copy Pg 2 provided. Initialled, dated, timed, and placed in chart.
[2021-11-25] MEDS: acetaminophen 500 mg Tablet 1000 MG PO ×2 (11:15→20:12)
[2021-11-25] MEDS: iohexol 350 mg/mL 100 mL Btl IV ×2 (14:08→14:09)
--- NOTE | 2021-11-25 14:13 | P.PN_ITS ---
Subjective Subjective: Seen this morning. She is doing a lot better. She states she would like to use the bathroom. Swallow evaluation was complete. She can start nectar thick liquids today. Order to remove Diaz today. Hemoglobin 8.4 today. Received another unit of blood yesterday. Vitals/I&O/Wt Last Vital Signs Temp 98.7 F 11/25/21 04:00 Pulse 103 H 11/25/21 12:30 Resp 26 H 11/25/21 12:30 BP 118/61 11/25/21 12:30 Pulse Ox 87 L 11/25/21 12:30 11/24/21 11/25/21 11/25/21 22:59 06:59 14:59 Intake Total 400 / 1549.542 50 / 1599.542 50 / 50 Output Total 1600 / 1600 650 / 2250 Balance -1200 / -50.458 -600 / -650.458 50 / 50 Weight last 48 hrs Weight 63.503 kg Weight 65 kg Physical Exam Narrative: General: Alert oriented x3, doing a lot better Cardio: Regular rate rhythm, normal S1-S2 Respiratory: Clear to auscultation bilaterally, diminished at bases GI: Abdomen soft, nontender, nondistended, bowel sounds + Extremities: no edema, no cyanosis.? Bandage left thigh appears clean.? No drainage noted.? Pulses present bilateral lower extremities.? Order to remove Diaz. Urinary Catheter Management: Diaz: Cath Placed During This Visit: yes Reason for Continuing Indwelling Catheter: Accurate Measurement of Urinary Output in Critically Ill Patients Urinary Catheter Date of Insertion: 11/16/21 Urinary Catheter Time of Insertion: 23:59 Data : 11/25/21 03:05 11/25/21 03:05 Micro: Microbiology 11/22/21 13:05 Gram Stain - Final Lung Left Lower Lobe Bronchoalveolar Lavage Culture - Final 11/25/21 09:45 Occult Blood (FIT) - Final Stool Routine Collection 11/23/21 17:45 MRSA Culture - Final Nose A&P Assessment and plan (1) Sepsis with acute hypoxic respiratory failure: Status: Acute (2) Acute respiratory distress syndrome (ARDS): Status: Acute (3) Respiratory failure: Status: Acute (4) Ventilator dependent: Status: Acute (5) Dysphagia: Status: Acute (6) Pneumonia: Status: Acute (7) Aspiration into airway: Status: Acute (8) Encounter for postoperative care: Status: Acute (9) 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: Status: Acute Qualifiers: Fracture morphology: oblique Fracture alignment: displaced Qualified Code(s): S72.332K - Displaced oblique fracture of shaft of left femur, subsequent encounter for closed fracture with nonunion (10) Closed supracondylar fracture of left femur: Status: Acute Qualifiers: Encounter type: initial encounter Qualified Code(s): S72.452A - Displaced supracondylar fracture without intracondylar extension of lower end of left femur, initial encounter for closed fracture (11) Lung cancer: Status: Acute (12) COPD (chronic obstructive pulmonary disease): Status: Acute (13) Screening for colon cancer: Status: Acute (14) Hepatitis C: Status: Acute Qualifiers: Viral hepatitis chronicity: chronic Hepatic coma status: without hepatic coma Qualified Code(s): B18.2 - Chronic viral hepatitis C (15) Shortness of breath: Status: Acute (16) Left upper lobe pulmonary infiltrate: Status: Acute (17) Pathological fracture of femur: Status: Acute Qualifiers: Pathology associated with fracture: neoplastic disease Encounter type: sequela Laterality: left Qualified Code(s): M84.552S - Pathological fracture in neoplastic disease, left femur, sequela (18) Restless legs syndrome: Status: Acute (19) Post-traumatic stress disorder, chronic: Status: Acute Plan #Vent dependent acute hypoxic respiratory failure #Left vocal cord paralysis on Neck CT #ARDS? 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 Patient underwent hardware removal with Dr. Stephens.? She also had a lateral femoral plate placed. -Postop day 2 hemoglobin dropped to 5.2.? He is status post 3 units of blood total. Most recent getting to yesterday. Hemoglobin 8.4 today. FOBT was po sitive few days ago but today is negative. ? She has repeated the dropped. We will check CT abdomen pelvis and hip to look for deep source of bleeding. No melena reported. No hematemesis. ? Chest CT consistent with ARDS.? Unsure if this is aspiration versus PCP versus COVID.? TACO low on the differential. -Possibility of vaping induced lung injury as well. -BNP 5000.? Echocardiogram normal EF ? Atovaquone stopped yesterday. Patient extubated yesterday. ? Continue steroids ? Continue vancomycin and Zosyn.? Sputum culture Gram stain, PCP bronchoalveolar lavage, other sputum studies pending ? MRSA nares positive ? Patient does have left vocal cord paralysis evidenced on neck CT.? This most likely contributed to her aspiration. -CTA ruled out PE, DVT also ruled out. ? Blood cultures negative to date, urine culture pending ? MRSA nares swab pending ? COVID and respiratory panel negative. -We will closely monitor input output and electrolytes and oxygen requirements, try to keep net negative to even fluid balance -S/p bronchoscopy and BAL analysis since neutrophilic predominant-bacterial cultures, fungal cultures, PCP PCR, from left lower lobe are still pending -Pulmonology consulted.? Appreciate recommendations. 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 [facility] Diagnoses Sepsis with acute hypoxic respiratory failure A41.9; R65.20; J96.01 Acute respiratory distress syndrome (ARDS) J80 Respiratory failure J96.90 Ventilator dependent Z99.11 Dysphagia R13.10 Pneumonia J18.9 Aspiration into airway T17.908A Encounter for postoperative care Z48.89 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 S72.332K Fracture morphology: oblique Fracture alignment: displaced Closed supracondylar fracture of left femur S72.452A Encounter type: initial encounter Lung cancer C34.90 COPD (chronic obstructive pulmonary disease) J44.9 Screening for colon cancer Z12.11 Hepatitis C B18.2 Viral hepatitis chronicity: chronic Hepatic coma status: without hepatic coma Shortness of breath R06.02 Left upper lobe pulmonary infiltrate R91.8 Pathological fracture of femur M84.552S Pathology associated with fracture: neoplastic disease Encounter type: sequela Laterality: left Restless legs syndrome G25.81 Post-traumatic stress disorder, chronic F43.12
[2021-11-25] MEDS: midodrine 5 mg TABLET PO ×2 (14:18→22:24)
[2021-11-25] MEDS: enoxaparin 40 mg/0.4 mL Syringe SUBCUT (14:18)
[2021-11-25] MEDS: FUROsemide 10 mg/mL SDV 4mL 40 MG IVP (14:42)
[2021-11-25] MEDS: sucralfate 1 gm Tablet PO (18:02)
[2021-11-25] MEDS: chlorhexidine gluconate 0.12% Btl 473 mL 15 ML MUCOUS MEM (18:16)
[2021-11-25] MEDS: vancomycin 1,000 MG in sodium chloride 0.9% 250 ML 250 MG IV (18:16)
--- NOTE | 2021-11-25 23:49 | PC.NURSE ---
JENA Mclaughlin took over care of pt on 11/25/2021 at [id number]
[2021-11-26] VITALS (64 sets, daily range): BP systolic 89–151; BP diastolic 49–81; PULSE 74–96; RESP 18–33; TEMP 36.4–37.2; O2SAT 81–100
[2021-11-26] MEDS: ipratropium-albuterol 3 mL Neb INHALATION ×7 (00:48→23:12)
--- NOTE | 2021-11-26 02:47 | PC.NURSE ---
Patient desaturated into the high 60's due to having to put her on a bed bello and get her back off. First switched from a NC to a HFNC and went from 5L to 8L. Saturations remained in the 70's, turned up O2 to 10L, then 15L. After remaining in the 80's, RT changed her NC to an oxy-mask. That brought her up into the 90's for a couple of minutes, but it went back down to mid 80's. RT called Dr. Shields and he ordered BIPAP. Once BIPAP was started patient's O2 come up quickly.
[2021-11-26] MEDS: LORazepam 2 mg/mL INJ 1 mL 1 MG IVP (03:41)
[2021-11-26 03:42] LABS: Eosinophils # 0.1 10^3/uL (0.0-0.8); Eosinophils % 0.9 %; Hematocrit 25.9 % (37.0-47.0); Hemoglobin 8.5 g/dL (11.5-15.3); Lymphocytes # 0.9 10^3/uL (0.8-4.8); Lymphocytes % 8.1 %; Mean Corpuscular HGB Conc 32.8 g/dL (30.0-36.0); Mean Corpuscular Hemoglobin 29.1 pg (28.0-34.0); Mean Corpuscular Volume 88.7 fl (81-99); Mean Platelet Volume 11.7 fL (7.4-10.4); Monocytes # 0.4 10^3/uL (0.2-0.9); Monocytes % 3.3 %; Neutrophils # 9.64 10^3/uL (1.8-7.7); Neutrophils % 86.5 %; Nucleated Red Blood Cells % 0.3 %; Platelet Count 251 10^3/cmm (130-400); Red Blood Count 2.92 10^6/uL (4.1-5.3); Red Cell Distribution Width 14.9 % (12.1-15.1); White Blood Count 11.1 10^3/uL (4.0-10.0)
[2021-11-26 04:05] LABS: Anion Gap 16.2 (5-19); Blood Urea Nitrogen 28 mg/dL (6-20); Calcium 8.6 mg/dL (8.5-10.5); Carbon Dioxide 29 mmol/L (22-29); Chloride 102 mmol/L (98-107); Glomerular Filtration Rate 65.5 mL/min (90-130); Glucose 113 mg/dL (65-115); Magnesium 2.1 mg/dL (1.7-2.3); Osmolality Calculated 304 mOsm/kg (285-295); Potassium 3.2 mmol/L (3.5-5.1); Sodium 144 mmol/L (136-145)
[2021-11-26] MEDS: morphine 4 mg/mL SDV 1 mL 1 MG IVP (04:14)
[2021-11-26] MEDS: piperacillin-tazobactam 3.375 GM in sodium chloride 0.9% (plus) 50 ML IV ×3 (06:05→22:50)
--- NOTE | 2021-11-26 06:14 | PC.NURSE ---
Held 6am medications due to patient being so unstable. Do not think that patient would tolerate being off BIPAP long enough to take the pills. You have to crush pills and put in apple juice. Dr. Shields agrees.
[2021-11-26] MEDS: sertraline 100 mg Tablet 200 MG PO (08:28)
[2021-11-26] MEDS: ARIPiprazole 10 mg Tablet 5 MG PO (08:28)
--- NOTE | 2021-11-26 09:01 | XRR_ITS ---
PROCEDURE INFORMATION: Exam: XR Chest Exam date and time: 11/26/2021 9:19 AM Age: 51 years old Clinical indication: Shortness of breath; Additional info: Increased o2 requirement TECHNIQUE: Imaging protocol: XR of the chest. Views: 1 view. COMPARISON: CR (CHEST, ) 11/25/2021 11:58 AM FINDINGS: Tubes, catheters and devices: Left-sided central venous chest port noted with the distal tip at the cavoatrial junction. Lungs: Ground-glass densities in the lungs most predominant in the mid and lower portions, slightly increased compared to prior exam, concerning for worsening pneumonia. Persistent relative sparing of the apices. Pleural spaces: No pneumothorax. No pleural effusion. Heart/Mediastinum: The cardiomediastinal silhouette is within normal limits. Bones/joints: Cervical spinal fixation hardware noted. XR/XR chest 1V portable [id number] IMPRESSION: Ground-glass densities in the lungs most predominant in the mid and lower portions, slightly increased compared to prior exam, concerning for worsening pneumonia.
[2021-11-26] MEDS: pantoprazole 40 mg SDV IVP ×2 (09:06→22:49)
[2021-11-26 09:11] LABS: ABG PCO2 40.4 mmHg (35-45); Alveolar-Arterial Oxygen Gradi 50.8 mmHg (5-10); Arterial Blood Gas Hematocrit 28.2 % (37-47); Base Excess ABG 7.4 mmol/L (-2.0-2.0); Blood Gas Allen Test Pos; Blood Gas Operator Identificat BD; Blood Gas Sample Site Brachial, right; Blood Gas Sample Type Arterial; Carboxyhemoglobin 1.2 %THgb (0.4-20.1); HCO3 ABG 31.3 mmol/L (22-26); HGB O2 Sat 88.3 % (95-100); Ionized Calcium Level - ABG 1.1 mmol/L (1.1-1.4); Methemoglobin 0.2 % (0.4-1.5); Oxygen Device NC; Oxygen Saturation ABG 89.5; PO2 ABG 54.7 mmHg (80.0-100.0); Potassium Level - ABG 3.5 mmol/L (3.5-5.0); Total Hemoglobin 9.2 g/dL (12-16)
[2021-11-26] MEDS: potassium chloride premix 100 ML 25 MEQ IV ×2 (09:19→13:21)
[2021-11-26 10:12] LABS: Phosphorus 3.3 mg/dL (2.5-4.5)
[2021-11-26] MEDS: LORazepam 2 mg/mL INJ 1 mL 0.5 MG IVP (11:01)
--- NOTE | 2021-11-26 11:19 | PC.OT ---
Per nursing, hold therapy today due to patient condition worsening.
--- NOTE | 2021-11-26 13:07 | P.PN_ITS ---
Subjective Subjective: Seen this morning she is currently on BiPAP. Family at bedside. She was on high flow earlier. She had conversational dyspnea and dropped to 70s. She was placed on BiPAP and since then she has been doing okay. Saturating 9899% at this time. Family states that patient has been vaping the strongest tobacco/nicotine product available. They confirmed this with patient's daughter. Vitals/I&O/Wt Last Vital Signs Temp 97.6 F 11/26/21 04:00 Pulse 90 11/26/21 12:00 Resp 26 H 11/26/21 12:00 BP 137/79 11/26/21 12:00 Pulse Ox 98 11/26/21 12:00 11/25/21 11/26/21 11/26/21 22:59 06:59 14:59 Intake Total 530 / 1060 540 / 1600 410 / 410 Output Total 1675 / 2375 350 / 2725 300 / 300 Balance -1145 / -1315 190 / -1125 110 / 110 Weight last 48 hrs Weight 63.458 kg Weight 63.503 kg Physical Exam Narrative: General: Alert oriented x3, unable to obtain much history at this time, on bipap Cardio: Regular rate rhythm, normal S1-S2 Respiratory: Clear to auscultation bilaterally, diminished at bases GI: Abdomen soft, nontender, nondistended, bowel sounds + Extremities: no edema, no cyanosis.? Bandage left thigh appears clean.? No drainage noted.? Pulses present bilateral lower extremities.? Urinary Catheter Management: Diaz: Cath Placed During This Visit: yes, but has since been removed by the nurse Reason for Continuing Indwelling Catheter: Accurate Measurement of Urinary Output in Critically Ill Patients Urinary Catheter Date of Insertion: 11/16/21 Urinary Catheter Time of Insertion: 23:59 Date Urinary Catheter Removed: 11/25/21 Time Urinary Catheter Discontinued: 15:20 Data : 11/26/21 03:20 11/26/21 03:20 Micro: Microbiology 11/22/21 13:05 Gram Stain - Final Lung Left Lower Lobe Bronchoalveolar Lavage Culture - Final 11/25/21 09:45 Occult Blood (FIT) - Final Stool Routine Collection A&P Assessment and plan (1) Sepsis with acute hypoxic respiratory failure: Status: Acute (2) Acute respiratory distress syndrome (ARDS): Status: Acute (3) Respiratory failure: Status: Acute (4) Ventilator dependent: Status: Acute (5) Pneumonia: Status: Acute (6) Dysphagia: Status: Acute (7) Aspiration into airway: Status: Acute (8) Encounter for postoperative care: Status: Acute (9) 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: Status: Acute Qualifiers: Fracture morphology: oblique Fracture alignment: displaced Qualified Code(s): S72.332K - Displaced oblique fracture of shaft of left femur, subsequent encounter for closed fracture with nonunion (10) Closed supracondylar fracture of left femur: Status: Acute Qualifiers: Encounter type: initial encounter Qualified Code(s): S72.452A - Displaced supracondylar fracture without intracondylar extension of lower end of left femur, initial encounter for closed fracture (11) Closed femur fracture: Status: Acute (12) Lung cancer: Status: Acute (13) COPD (chronic obstructive pulmonary disease): Status: Acute (14) Shortness of breath: Status: Acute (15) Left upper lobe pulmonary infiltrate: Status: Acute (16) Pathological fracture of femur: Status: Acute Qualifiers: Pathology associated with fracture: neoplastic disease Encounter type: sequela Laterality: left Qualified Code(s): M84.552S - Pathological fracture in neoplastic disease, left femur, sequela (17) Restless legs syndrome: Status: Acute (18) Post-traumatic stress disorder, chronic: Status: Acute Plan #Vent dependent acute hypoxic respiratory failure #Left vocal cord paralysis on Neck CT #ARDS? 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 Patient underwent hardware removal with Dr. Stephens.? She also had a lateral femoral plate placed. -Postop day 2 hemoglobin dropped to 5.2.? He is status post 3 units of blood total.? Most recent getting to yesterday.? Hemoglobin 8.4 today.? FOBT was positive few days ago but today is negative. ? She has repeated the dropped.? We will check CT abdomen pelvis and hip to look for deep source of bleeding.? No melena reported.? No hematemesis. ? Chest CT consistent with ARDS.? Unsure if this is aspiration versus PCP versus COVID.? TACO low on the differential. -Possibility of vaping induced lung injury as well. -BNP 5000.? Echocardiogram normal EF ? Atovaquone stopped yesterday.? Patient extubated 11/24 ? Continue steroids ? Continue vancomycin and Zosyn.? Sputum culture Gram stain, PCP bronchoalveolar lavage, other sputum studies pending ? MRSA nares positive ? Patient does have left vocal cord paralysis evidenced on neck CT.? This most likely contributed to her aspiration. -CTA ruled out PE, DVT also ruled out. ? Blood cultures negative to date, urine culture pending ? MRSA nares swab pending ? COVID and respiratory panel negative. -We will closely monitor input output and electrolytes and oxygen requirements, try to keep net negative to even fluid balance -S/p bronchoscopy and BAL analysis since neutrophilic predominant-bacterial cultures, fungal cultures, PCP PCR, from left lower lobe are still pending -Pulmonology consulted.? Appreciate recommendations. ?Follow speech follow recommendations - Albumin TID with lasix 40 bid today. - Low threshold to intubate. 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 [facility] Diagnoses Sepsis with acute hypoxic respiratory failure A41.9; R65.20; J96.01 Acute respiratory distress syndrome (ARDS) J80 Respiratory failure J96.90 Ventilator dependent Z99.11 Pneumonia J18.9 Dysphagia R13.10 Aspiration into airway T17.908A Encounter for postoperative care Z48.89 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
[2021-11-26] MEDS: midodrine 5 mg TABLET PO ×2 (13:11→22:50)
[2021-11-26] MEDS: enoxaparin 40 mg/0.4 mL Syringe SUBCUT (13:12)
[2021-11-26 15:13] LABS: P. Jirovecii DNA QL PCR NOT DETECTED
[2021-11-26] MEDS: sucralfate 1 gm Tablet PO (17:18)
[2021-11-26] MEDS: FUROsemide 10 mg/mL SDV 4mL 40 MG IVP (17:18)
[2021-11-26 17:42] LABS: Aspergillus AG,EIA NOT DETECTED; Aspergillus AG,EIA, Index <0.50
[2021-11-26 19:21] LABS: Vancomycin Trough 10.2 ug/mL (10-15)
[2021-11-26] MEDS: vancomycin 1,000 MG in sodium chloride 0.9% 250 ML 250 MG IV (20:10)
[2021-11-27] VITALS (58 sets, daily range): BP systolic 86–150; BP diastolic 39–83; PULSE 67–92; RESP 16–34; TEMP 36.7–37.3; O2SAT 73–100
[2021-11-27] MEDS: LORazepam 2 mg/mL INJ 1 mL 0.5 MG IVP (01:17)
[2021-11-27] MEDS: ipratropium-albuterol 3 mL Neb INHALATION ×6 (03:24→23:43)
[2021-11-27 03:53] LABS: Glucose Point of Care 130 mg/dL (70-110)
[2021-11-27 04:08] LABS: Basophils % 0.1 %; Eosinophils # 0.1 10^3/uL (0.0-0.8); Eosinophils % 0.9 %; Hematocrit 24.4 % (37.0-47.0); Hemoglobin 8.1 g/dL (11.5-15.3); Lymphocytes # 0.7 10^3/uL (0.8-4.8); Lymphocytes % 5.4 %; Mean Corpuscular HGB Conc 33.2 g/dL (30.0-36.0); Mean Corpuscular Hemoglobin 29.8 pg (28.0-34.0); Mean Corpuscular Volume 89.7 fl (81-99); Mean Platelet Volume 12.9 fL (7.4-10.4); Monocytes # 0.3 10^3/uL (0.2-0.9); Monocytes % 2.1 %; Neutrophils # 11.47 10^3/uL (1.8-7.7); Neutrophils % 90.7 %; Nucleated Red Blood Cells % 0 %; Platelet Count 171 10^3/cmm (130-400); Red Blood Count 2.72 10^6/uL (4.1-5.3); Red Cell Distribution Width 14.8 % (12.1-15.1); White Blood Count 12.7 10^3/uL (4.0-10.0)
[2021-11-27 04:24] LABS: ABG PH Result 7.51 (7.35-7.45); Arterial Blood Gas Hematocrit 25.8 % (37-47); Base Excess ABG 7.6 mmol/L (-2.0-2.0); Blood Gas Allen Test Pos; Blood Gas Sample Site Brachial, left; Blood Gas Sample Type Arterial; Carboxyhemoglobin 1.3 %THgb (0.4-20.1); HCO3 ABG 31.2 mmol/L (22-26); HGB O2 Sat 92.7 % (95-100); Ionized Calcium Level - ABG 1.2 mmol/L (1.1-1.4); Methemoglobin 0.6 % (0.4-1.5); Oxygen Device BIPAP; Oxygen Saturation ABG 94.4; PO2 ABG 64.2 mmHg (80.0-100.0); Potassium Level - ABG 3.6 mmol/L (3.5-5.0); Total Hemoglobin 8.4 g/dL (12-16)
[2021-11-27] MEDS: acetaminophen 500 mg Tablet 1000 MG PO (04:31)
[2021-11-27] MEDS: FUROsemide 10 mg/mL SDV 4mL 40 MG IVP (04:32)
[2021-11-27 04:35] LABS: Alanine Aminotransferase 9 U/L (0-33); Albumin Level 3.8 g/dL (3.5-5.2); Alkaline Phosphatase 45 IU/L (35-105); Anion Gap 16.6 (5-19); Aspartate Amino Transferase 14 U/L (0-32); Blood Urea Nitrogen 24 mg/dL (6-20); Carbon Dioxide 30 mmol/L (22-29); Chloride 102 mmol/L (98-107); Globulin 3.3 g/dL (1.3-4.6); Glucose 125 mg/dL (65-115); Osmolality Calculated 306 mOsm/kg (285-295); Potassium 3.6 mmol/L (3.5-5.1); Sodium 145 mmol/L (136-145); Total Bilirubin 0.7 mg/dL (0.15-1.2); Total Protein 7.1 g/dL (6.6-8.7)
[2021-11-27] MEDS: buPROPion XL (24 HR) 300 mg Tablet PO (05:43)
[2021-11-27] MEDS: midodrine 5 mg TABLET PO ×2 (05:43→14:08)
[2021-11-27] MEDS: piperacillin-tazobactam 3.375 GM in sodium chloride 0.9% (plus) 50 ML IV ×2 (05:43→14:06)
[2021-11-27] MEDS: sucralfate 1 gm Tablet PO ×2 (06:09→18:24)
[2021-11-27 07:10] LABS: Glucose Point of Care 121 mg/dL (70-110)
--- NOTE | 2021-11-27 08:08 | XR_ITS ---
WS: [id number] PORTABLE CHEST HISTORY: SOB COMPARISON: 11/26/2021, 11/25/2021 LEFT subclavian Mediport with tip in the distal SVC. Continued bilateral hazy opacifications throughout both lungs with mild sparing of the apices. No imp rovement. Minimal progression. No pneumothorax. No pleural effusion. Cardiac size: Normal. Mediastinum/Aorta: Normal mediastinum. No osseous abnormality seen. XR/XR chest 1V portable [id number] IMPRESSION: Continued bilateral hazy opacifications with minimal progression since 2. Differential includes pneumonitis, edema and hemorrhage.
[2021-11-27] MEDS: sertraline 100 mg Tablet 200 MG PO (08:36)
[2021-11-27] MEDS: ARIPiprazole 10 mg Tablet 5 MG PO (08:36)
--- NOTE | 2021-11-27 08:51 | PM.PN ---
Subjective Subjective: -Over weekend-patient was requiring high flow oxygen and later switched to BiPAP as she was having conversational dyspnea and sats dropping to 70%; Chest x-ray started to worsen -Today morning ABG 7.5 39/64/3 194%-on BiPAP 55%-predominantly metabolic alkalosis likely due to diuresis -Today chest x-ray shows bilateral diffuse GGO with no significant difference -currently on BiPAP 05/24 and FiO2 45% saturating 93% -Family states that patient has been vaping the strongest tobacco/nicotine product available. They confirmed this with-patient's daughter -Today we will start her on Precedex and switch to high flow nasal cannula -H&H remained stable 02/07 Since transfusion of 1 unit on 11/24/2021 Medications: Reviewed: Yes Vitals/I&O/Wt Last Vital Signs Temp 99.2 F 11/27/21 02:00 Pulse 88 11/27/21 08:17 Resp 18 11/27/21 08:17 BP 120/57 11/27/21 08:00 Pulse Ox 89 L 11/27/21 08:17 11/26/21 11/27/21 11/27/21 22:59 06:59 14:59 Intake Total 620 / 1250 150 / 1400 Output Total 1400 / 1800 1000 / 2800 Balance -780 / -550 -850 / -1400 Weight last 48 hrs Weight 139 lb 14.4 oz Physical Exam Narrative: PHYSICAL EXAM: General: lying in bed, sedated and intubated. HEENT:NCAT, PERRLA, EOMI Neck: Supple Lungs: Bilateral diffuse crackles Heart: s1/s2, RRR Abd: soft, NT, ND, BS + Normoactive Extremities: No edema LONG TERM CARE PHLEBOTOMIST: sedated and limited LONG TERM CARE PHLEBOTOMIST exam possible. SKIN: no rash LDA: # CVC: Left subclavian central line Urinary Catheter Management: Diaz: Cath Placed During This Visit: yes, but has since been removed by the nurse Reason for Continuing Indwelling Catheter: Accurate Measurement of Urinary Output in Critically Ill Patients Urinary Catheter Date of Insertion: 11/26/21 Urinary Catheter Time of Insertion: 20:00 Date Urinary Catheter Removed: 11/25/21 Time Urinary Catheter Discontinued: 15:20 Data : 11/27/21 03:51 11/27/21 03:51 Other Labs: Radiology Impressions Knee X-Ray 11/16/21 14:13 IMPRESSION: Acute or subacute on chronic distal femoral fractures with fractured displaced distal fixation screws and displaced intramedullary kari protruding through the anterior cortex of the femur. The tip of the kari lies 6 mm above the patella, possibly within the joint. Tibia/Fibula X-Ray 11/16/21 14:13 IMPRESSION: 1. Intact lower leg. 2. Femoral intramedullary kari protrudes through the anterior cortex of the distal femur just above the patella. Findings suggest distal femoral fracture of indeterminate acuity. Femur X-Ray 11/17/21 21:23 IMPRESSION: 1. Fixation hardware appears intact. 2. Prominent soft tissue swelling overlying the left hip with expected postsurgical subcutaneous emphysema. Chest CTA 11/21/21 13:21 IMPRESSION: 1. No evidence of pulmonary embolus. 2. Hazy groundglass infiltrates in the LEFT greater than RIGHT perihilar regions and LEFT greater than RIGHT lower lobes with interlobular septal thickening. Findings can be seen with ARDS, pulmonary edema, and viral pneumonia. Recommend correlation with infectious or inflammatory etiologies including Covid 19 pneumonia. 3. Small bilateral pleural effusions with compressive atelectasis in the lung bases. 4. Partial airspace consolidation in the LEFT lower lobe with air bronchograms consistent with pneumonia measuring 4.6 x 2.7 cm 5. 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 This is unchanged since the prior examination. 6. Progressed soft tissue thickening along the RIGHT hilum and suprahilar likely due to radiation fibrosis. 7. No progressive lymphadenopathy. Neck CT 11/21/21 13:21 IMPRESSION: 1. Above findings suspicious for LEFT vocal cord paralysis described above. Recommend further evaluation with endoscopy. 2. Otherwise no evidence of supraglottic or glottic mass. Subglottic airway is patent. 3. No cervical lymphadenopathy. A few prominent LEFT greater than RIGHT supraclavicular lymph nodes nonspecific but may be reactive. 4. Salivary glands are normal. 5. Mild sphenoid sinusitis. 6. Soft tissue thickening in the LEFT upper lobe likely due to radiation fibrosis. Described on the recent chest CT. 7. Groundglass infiltrates in the lung apices also described on the chest CT. Abdomen/Pelvis CT 11/25/21 08:21 IMPRESSION: 1. No active hemorrhage is seen. No large hematoma is identified. 2. Postsurgical changes in the left hip consistent with removal of surgical hardware and small subcutaneous hemorrhage over the left side of the pelvis and hips. 3. Bilateral pleural effusions larger on the left side. 4. Prominent bilateral interstitial pulmonary infiltrates. This could be due to interstitial edema from heart failure but an interstitial pneumonia should also be considered. 5. Coronary artery calcification. Hip CT 11/25/21 08:35 IMPRESSION: 1. Postsurgical changes consistent with recent removal of metal hardware for old fracture. 2. Subcutaneous infiltration over the left side of the hip consistent with small subcutaneous hemorrhage related to surgery. 3. No large hematomas are seen. Chest X-Ray 11/27/21 08:08 IMPRESSION: Continued bilateral hazy opacifications with minimal progression since 11/26/2021. Differential includes pneumonitis, edema and hemorrhage. Laboratory Results WBC 12.7 10^3/uL (4.0-10.0) H 11/27/21 03:51 RBC 2.72 10^6/uL (4.1-5.3) L 11/27/21 03:51 Hgb 8.1 g/dL (11.5-15.3) L 11/27/21 03:51 Hct 24.4 % (37.0-47.0) L 11/27/21 03:51 MCV 89.7 fl (81-99) 11/27/21 03:51 MCH 29.8 pg (28.0-34.0) 11/27/21 03:51 MCHC 33.2 g/dL (30.0-36.0) 11/27/21 03:51 RDW 14.8 % (12.1-15.1) 11/27/21 03:51 Plt Count 171 10^3/cmm (130-400) D 11/27/21 03:51 MPV 12.9 fL (7.4-10.4) H 11/27/21 03:51 Neut % (Auto) 90.7 % 11/27/21 03:51 Lymph % (Auto) 5.4 % 11/27/21 03:51 [place] % (Auto) 2.1 % 11/27/21 03:51 Eos % (Auto) 0.9 % 11/27/21 03:51 Baso % (Auto) 0.1 % 11/27/21 03:51 Neut # (Auto) 11.47 10^3/uL (1.8-7.7) H 11/27/21 03:51 Lymph # (Auto) 0.7 10^3/uL (0.8-4.8) L 11/27/21 03:51 [place] # (Auto) 0.3 10^3/uL (0.2-0.9) 11/27/21 03:51 Eos # (Auto) 0.1 10^3/uL (0.0-0.8) 11/27/21 03:51 Baso # (Auto) 0.0 10^3/uL (0.0-0.1) 11/27/21 03:51 Nucleated RBC % (auto) 0 % 11/27/21 03:51 Total Counted 100 (0-100) 11/22/21 08:45 Atypical Lymphs % Not Reportable 11/22/21 08:45 Absolute Neutrophils 14.9 10^3/cmm (1.4-6.5) H 11/22/21 08:45 Segmented Neutrophils 74 % 11/22/21 08:45 Abs Segm Neuts (Man) 12.3 10/cmm (1.6-7.1) H 11/22/21 08:45 Band Neutrophils 16.0 % 11/22/21 08:45 Abs Band Neuts (Man) 2.7 10^3/cmm (0.0-1.2) H 11/22/21 08:45 Lymphocytes (Manual) 5 % 11/22/21 08:45 Monocytes (Manual) 5.0 % 11/22/21 08:45 Absolute Monocytes 0.8 10^3/cmm (0.1-0.6) H 11/22/21 08:45 Eosinophils (Manual) 0 % 11/22/21 08:45 Absolute Eosinophils 0.0 10^3/cmm (0.0-0.7) 11/22/21 08:45 Basophils (Manual) Not Reportable 11/22/21 08:45 Nucleated RBCs # 0.0 /100WBC 11/27/21 03:51 Platelet Estimate Normal (Normal) 11/22/21 08:45 Polychromasia Trace 11/22/21 08:45 Macrocytosis 1+ H 11/22/21 08:45 ESR 41 mm/hr (0-15) H 11/22/21 08:45 PT 16.00 SECONDS (12.1-14.9) H 11/19/21 Unknown INR 1.25 (0.8-1.2) H 11/19/21 Unknown Specimen Type Arterial 11/27/21 04:13 Sample Site Brachial, left 11/27/21 04:13 ABG pH 7.51 (7.35-7.45) H 11/27/21 04:13 ABG pCO2 39.0 mmHg (35-45) 11/27/21 04:13 ABG pO2 64.2 mmHg (80.0-100.0) L 11/27/21 04:13 ABG HCO3 31.2 mmol/L (22-26) H 11/27/21 04:13 ABG O2 Saturation 94.4 11/27/21 04:13 ABG Base Excess 7.6 mmol/L (-2.0-2.0) H 11/27/21 04:13 Tramaine Test Pos 11/27/21 04:13 A-a O2 Gradient 36.0 mmHg (5-10) H 11/27/21 04:13 Hematocrit 25.8 % (37-47) L 11/27/21 04:13 Hgb O2 Saturation 92.7 % (95-100) L 11/27/21 04:13 Carboxyhemoglobin 1.3 %THgb (0.4-20.1) 11/27/21 04:13 Methemoglobin 0.6 % (0.4-1.5) 11/27/21 04:13 Total Hemoglobin 8.4 g/dL (12-16) L 11/27/21 04:13 Sodium 146.0 mmol/L (131-143) H 11/27/21 04:13 Potassium 3.6 mmol/L (3.5-5.0) 11/27/21 04:13 Glucose 129.0 mg/dL (70-115) H 11/27/21 04:13 Ionized Calcium 1.2 mmol/L (1.1-1.4) 11/27/21 04:13 O2 Delivery Device Bipap 11/27/21 04:13 O2 Liters/Min 40.0 % 11/26/21 09:00 FiO2 55.0 % 11/27/21 04:13 Tidal Volume 0.42 11/24/21 03:10 PEEP 8.0 cmH20 11/24/21 03:10 [place] Worker ID Cwal[place] 11/27/21 04:13 Sodium 145 mmol/L (136-145) 11/27/21 03:51 Potassium 3.6 mmol/L (3.5-5.1) 11/27/21 03:51 Chloride 102 mmol/L (98-107) 11/27/21 03:51 Carbon Dioxide 30 mmol/L (22-29) H 11/27/21 03:51 Anion Gap 16.6 (5-19) 11/27/21 03:51 BUN 24 mg/dL (6-20) H 11/27/21 03:51 Creatinine 0.8 mg/dL (0.5-0.9) 11/27/21 03:51 GFR Calculation 75.0 mL/min (90-130) L 11/27/21 03:51 Glucose 125 mg/dL (65-115) H 11/27/21 03:51 POC Glucose 130 mg/dL (70-110) H 11/27/21 03:50 Calculated Osmolality 306 mOsm/kg (285-295) H 11/27/21 03:51 Calcium 9.0 mg/dL (8.5-10.5) 11/27/21 03:51 Phosphorus 3.3 mg/dL (2.5-4.5) 11/26/21 03:20 Magnesium 2.1 mg/dL (1.7-2.3) 11/26/21 03:20 Total Bilirubin 0.7 mg/dL (0.15-1.2) 11/27/21 03:51 AST 14 U/L (0-32) 11/27/21 03:51 ALT 9 U/L (0-33) 11/27/21 03:51 Alkaline Phosphatase 45 IU/L (35-105) 11/27/21 03:51 Lactate Dehydrogenase 386 U/L (135-214) H 11/23/21 03:11 Creatine Kinase Cancelled 11/20/21 03:34 C-Reactive Protein 210.9 mg/L (0.0-4.9) H 11/22/21 16:00 NT-Pro-B Natriuret Pep 5618 pg/mL (0-125) H 11/22/21 16:00 Total Protein 7.1 g/dL (6.6-8.7) 11/27/21 03:51 Albumin 3.8 g/dL (3.5-5.2) 11/27/21 03:51 Globulin 3.3 g/dL (1.3-4.6) 11/27/21 03:51 Procalcitonin 0.46 ng/mL (0-0.5) 11/21/21 09:05 Urine Color Yellow (Yellow) 11/16/21 20:05 Urine Appearance Clear (CLEAR) 11/16/21 20:05 Urine pH 5 (5-7) 11/16/21 20:05 Ur Specific [place] 1.020 (1.005-1.030) 11/16/21 20:05 Urine Protein Neg (Negative) 11/16/21 20:05 Urine Glucose (UA) Norm (Normal) 11/16/21 20:05 Urine Ketones Negative (Negative) 11/16/21 20:05 Urine Blood Neg (Negative) 11/16/21 20:05 Urine Nitrate Negative (Negative) 11/16/21 20:05 Urine Bilirubin Neg (Negative) 11/16/21 20:05 Urine Urobilinogen 1 mg/dL (Negative) H 11/16/21 20:05 Ur Leukocyte Esterase 2+ (Negative) H 11/16/21 20:05 Urine RBC 0-4 /hpf (0-2) H 11/16/21 20:05 Urine WBC 10-15 /hpf (0-5) H 11/16/21 20:05 Ur Squamous Epith Cells 0-4 /hpf (0-5) H 11/16/21 20:05 Amorphous Sediment Not Reportable 11/16/21 20:05 Urine Bacteria Trace /hpf (NONE) 11/16/21 20:05 Urine Mucus 2+ /hpf 11/16/21 20:05 Urine Myoglobin Cancelled 11/20/21 11:14 Nasal Influ A H1 2008 PCR Not detected (NOT DETECT) 11/22/21 15:12 Bronch Specimen Source Left lower lobe 11/22/21 13:05 Bronchial Fluid Color Colorless 11/22/21 13:05 Bronchial Fluid Appearance Clear (CLEAR) 11/22/21 13:05 Bronchial Fluid WBC 281 /uL 11/22/21 13:05 Bronchial Fluid RBC 1 10^3/uL 11/22/21 13:05 Bronch Cells Counted 200 11/22/21 13:05 Bronchial Neutrophils 38.00 % (0.9-2.3) H 11/22/21 13:05 Bronchial Lymphocytes 7.00 % (10.71-12.91) L 11/22/21 13:05 Bronchial Eosinophils 2.00 % (0.13-0.25) H 11/22/21 13:05 Bronchial Macrophages 52.00 % (83.6-86.8) L 11/22/21 13:05 Bronchial Other Cells 1 % 11/22/21 13:05 Bronchial Diff Comment Yes 11/22/21 13:05 Vancomycin Trough 10.2 ug/mL (10-15) 11/26/21 18:54 Adenovirus (PCR) Not detected (NOT DETECT) 11/22/21 15:12 C. pneumoniae DNA (PCR) Not detected (NOT DETECT) 11/22/21 15:12 Coronavirus 229E (PCR) Cancelled 11/22/21 16:08 Human Metapneumovir PCR Not detected (NOT DETECT) 11/22/21 15:12 Influenza A (H1) PCR Not detected (NOT DETECT) 11/22/21 15:12 Influenza A (H3) PCR Not detected (NOT DETECT) 11/22/21 15:12 Influenza Type A (PCR) Not detected (NOT DETECT) 11/22/21 15:12 Influenza Type B (PCR) Not detected (NOT DETECT) 11/22/21 15:12 M. pneumoniae (PCR) Not detected (NOT DETECT) 11/22/21 15:12 Parainfluenza 1 (PCR) Not detected (NOT DETECT) 11/22/21 15:12 Parainfluenza 2 (PCR) Not detected (NOT DETECT) 11/22/21 15:12 Parainfluenza 3 (PCR) Not detected (NOT DETECT) 11/22/21 15:12 Parainfluenza 4 (PCR) Not detected (NOT DETECT) 11/22/21 15:12 Pneumocystis Source expectorated sputum 11/22/21 13:05 Pneumocyst jirovecii PCR Not detected 11/22/21 13:05 Aspergillus Ag (EIA) Not detected 11/22/21 13:05 A. galactomannan Ag Idx <0.50 11/22/21 13:05 RSV Type A (PCR) Not detected (NOT DETECT) 11/22/21 15:12 RSV Type B (PCR) Not detected (NOT DETECT) 11/22/21 15:12 Entero/Rhino (PCR) Not detected (NOT DETECT) 11/22/21 15:12 SARS-CoV-2 (PCR) Cancelled 11/22/21 16:08 Blood Type A Negative 11/24/21 07:59 Rho(D) Type Negative 11/24/21 07:59 Antibody Screen Negative 11/24/21 07:59 Crossmatch See Detail 11/24/21 07:59 Micro: Microbiology 11/26/21 20:00 Legionella Urinary Antigen - Final Urine Catheterized A&P Assessment and plan (1) Acute respiratory distress syndrome (ARDS): Status: Acute (2) Sepsis with acute hypoxic respiratory failure: Status: Acute (3) Dysphagia: Status: Acute (4) Aspiration into airway: Status: Acute (5) Lung cancer: Status: Acute (6) COPD (chronic obstructive pulmonary disease): Status: Acute Plan #Acute hypoxic respiratory failure and ARDS in patient with suspected aspiration pneumonia/?TRALI/EVALI-improved initially and then started to worsen #MRSA nares positive #History of difficulty swallowing for 1 to 2 months-high risk for aspiration #CT neck evidence of left vocal cord paralysis -Patient has suspected aspiration event postop day 3-and since then she was requiring supplemental oxygen -intubated 12/14/2021-successfully extubated to 3 L nasal cannula 11/24/2021 ; -Around the time of extubation patient received 1 unit PRBC on 11/24/2021-although she was extubated to 3 L nasal cannula over the ensuing 12 to 24 hours gradual oxygen requirement went up to 5 to 6 L nasal cannula and 24 hours later she was requiring high flow nasal cannula-suspected for component of TRALI -Although oxygen requirement increased 6 hours after transfusion-I will still go ahead and report to blood bank -Family states that patient has been vaping the strongest tobacco/nicotine product available. They confirmed this with-patient's daughter-suspect EVALI -Continue supportive care --Today chest x-ray shows bilateral diffuse GGO with no significant difference -currently on BiPAP 05/24 and FiO2 45% saturating 93% -Today we will start her on Precedex and switch to high flow nasal cannula -Currently on vancomycin and Zosyn-to complete 10 days -CT neck findings are suspicious for left vocal cord paralysis;CT chest showed bilateral diffuse GGO's more predominantly on the left perihilar and left lower lobe areas-with infiltrative consolidation with air bronchograms in left lower lobe -Patient Is on Zosyn; -MRSA nares positive-currently on vancomycin to broaden coverage-DC antibiotics after total 10 days -Other causes of sudden hypoxia were also entertained -especially patient was not on DVT prophylaxis postsurgery due to low H&H PE was considered, however CTA ruled out PE-DVT negative on bilateral venous Doppler; - started on Lovenox 40 Mg daily for DVT prophylaxis-gradual drop in H&H to 7 again and transfused 1 unit 11/24/2021 to keep H&H greater than 7/21 and since then it has been stable- external examination did not show any significant swelling or hematoma in the left hip area but recommended orthopedic to have a look at surgical site for bleeding -Given bilateral diffuse GGO's-respiratory viral panel and COVID PCR were sent which were negative;however, I sent for PCP PCR on BAL and as results take at least 1 week-I started her on atovaquone (patient is allergic to sulfa) and IV steroids (PaO2< 70 and AA gradient> 35)-LDH 386 -patient received 2 doses of atovaquone-recommended to DC as PCP PCR is negative -Other causes of bilateral GGO's-BNP 5618 ; fluid overload-secondary to TACO (less likely as she received only 2 units of PRBC initially and 4 days later she received 1 unit on 11/24/2020) ECHO reported normal LV size, systolic function, wall thickness, no regional wall motion abnormalities, normal diastolic function, LVEF 65%. Normal RV size and systolic function. Mild pulmonary hypertension with RVSP 52. Mildly increased right atrial size. Structurally normal mitral valve. - monitor input output and electrolytes and oxygen requirements, try to keep net negative to even fluid balance -S/p bronchoscopy 11/22/2021-inflamed left bronchial tree and BAL analysis since neutrophilic predominant-bacterial cultures negative, fungal cultures, PCP PCR, from left lower lobe are still pending After -Today's ABG is metabolic alkalosis with pH 7.51 and serum bicarb 30-recommended to taper down Lasix as she is net -2.6 L over last 48 hours; #History of squamous cell cancer of lung-s/p chemoradiation and immunotherapy-last dose February 2020 -Developed rash and so discontinued immunotherapy with pembrolizumab -Surveillance CT scans and PET CT scans-showed no recurrence of lung cancer with stable left perihilar opacity consistent with postradiation fibrosis #Patient has history of COPD and being managed by her civil manager with Breztri 2 puffs twice daily -On DuoNeb every 6 hours as needed #IM nail removal and ORIF left femur-on 11/17/2021 -Stable as per orthopedic -Postop day 2 11/19/2021 patient has drop in H&H-received 2 unit transfusion and since it was stable -Received 1 more unit PRBC again 11/24/2021 for hemoglobin 7-we will monitor CBC and transfuse if H&H less than 01/04 -Recommended to let Ortho follow-up ICU CHECKLIST: Problem list updated Verbal orders reviewed and signed Glycemic Control: Not required Nutrition: N.p.o. until speech evaluation Restraint Renewal (within 24 hrs): Yes Ulcer Prophylaxis: PPI Chemical Thromboprophylaxis: Prophylaxis: Lovenox Mechanical Thromboprophylaxis: ICD Need for Central line: Patient had port Need for Diaz catheter: For urine output monitoring Family: Updated at bedside Prognosis: Guarded Code: Full Recommendations conveyed to, RN, RT taking care of the patient Attestations Medical Necessity Statement*: Acute hypoxemic respiratory failure secondary to ARDS due to aspiration pneumonia TRALI/EVALI/MRSA [place]-currently on high flow nasal cannula Time Spent in Patient Care: Greater than 35 minutes (>than 50% of time spent in counselling and/or direct pt care on unit). Critical Care Time: This patient has a high probability of sudden, clinica lly significant de terioration, which requires the high est level of physi vishal preparedness to intervene urgen tly.? I managed/veloz pervised life or o rgan supporting in terventions that r equired frequent p hysician assessmen t.? I devoted my f ull attention in t he ICU to the dire ct care of this pa tient for the imelda od of time indicat ed above.? Time I spent with family or surrogate(s) is included only if the patient was in capable of providi ng necessary infor mation or particip ating in decision making.? Time ashwini bella to teaching an d to any procedure s I billed yudi mello is not include d. Services Prov ided: Telemetry re view Mechanical Ve ntilation Hemodyna jazzmine interpretation , assessment and m anagement Review a nd interpretation of CXR Review and interpretation of lab values Review and interpretation of microbiologic data and culture r esults Review of m edications and adm inistration Review and interpretatio n of Nutrition req uirements and kathe gement Discussion of management with other consultants and services Clin ical update to [facility] members ? Critical Care Time (min): 65 Coding Level of Care Code Established Pt Acute Talent Manager for Chg Fwd Patient Type Established History Comprehensive Exam Comprehensive Medical Decision Making Moderate Complexity Diagnoses Acute respiratory distress syndrome (ARDS) J80 Sepsis with acute hypoxic respiratory failure A41.9; R65.20; J96.01 Dysphagia R13.10 Aspiration into airway T17.908A Lung cancer C34.90 COPD (chronic obstructive pulmonary disease) J44.9 Time Spent (min) 65
[2021-11-27] MEDS: budesonide 0.5 mg/2 mL Neb INHALATION ×2 (09:11→20:10)
[2021-11-27 09:18] LABS: NT Pro B Type Natriuretic Pept 7112 pg/mL (0-125); Procalcitonin 0.32 ng/mL (0-0.5); Thyroid Stimulating Hormone 0.86 uIU/mL (0.27-4.20)
[2021-11-27 09:28] LABS: Iron 22 ug/dL (37-145); Percent Saturation 11.2 % (20-50); Total Iron Binding Capacity 195 mcg/dl; Unsaturated Iron Binding 173 ug/dL (112-347)
[2021-11-27] MEDS: acetaZOLAMIDE 250 mg Tablet 500 MG PO (09:57)
[2021-11-27] MEDS: pantoprazole 40 mg SDV IVP (09:57)
[2021-11-27] MEDS: nicotine 21 mg Patch 1 PATCH TRANSDERMA (09:57)
[2021-11-27] MEDS: levoFLOXacin 500 mg Tablet PO (09:57)
--- NOTE | 2021-11-27 11:51 | PC.CHAP ---
Pastoral Care Encounter/Spiritual Assessment Type of Contact [] Declined damascener visit [] Patient/Family/Request visit [] Outpatient visit [] Follow-up visit [] Physician referral [] Code/Alert [x] Routine visit [] Staff referral [] Actively dying [] Patient sleeping [] Family support [] [] Out of room [] Palliative care [] [x] Receiving care in room [] Pre-surgical visit [] Trauma [] Long length of stay [x] ICU visit [] Other: Relational/Emotional Strength [] Patient feels connected with others/family/visitors/staff [] Distress [] Loneliness/isolation [] Abandonment Spirituality of Patient [] Person of [place] [] Attends Religion of their [place] [] Believes in Prayer [] Reads Bible or Congregational materials [] There are Spiritual issues to be addressed Traffic Lieutenant Interventions [x] Prayer [] Active listening [] Non-anxious presence [] Spiritual/emotional support [] Crisis/trauma care [] Spiritual counseling [] Bereavement support [] Provided bereavement packet [] Provided Bible/devotional materials [] Provided toy/stuffed animal, coloring book to patient or family member [] Provided Communion [] Anointing/[place] [] Salvation [x] Completed spiritual assessment [] Other: Impact on Illness or Injury [] Angry [] Fearful [] Anxious [] Often cries [] Exhaustion [] Unable to work [] Unable to attend christian [] Unable to walk/stand [] Unable to read [] Unable to drive [] Unable to eat/drink [] Unable to sleep [] Unable to be with family [] Patient intubated [] Other: Summary Time spent with patient
[2021-11-27] MEDS: iron sucrose 200 MG in sodium chloride 0.9% (100 ml) 100 ML 220 MG IV (11:58)
[2021-11-27] MEDS: enoxaparin 40 mg/0.4 mL Syringe SUBCUT (14:08)
--- NOTE | 2021-11-27 16:31 | PC.OT ---
OT TREATMENT ATTEMPTED SEVERAL TIMES THIS AFTERNOON. PATIENT SEATED IN CHAIR; O2 SATURATIONS REMAINED IN THE 70s AT EACH ATTEMPT. WILL ATTEMPT AGAIN TOMORROW.
--- NOTE | 2021-11-27 16:48 | P.PN_ITS ---
Subjective Subjective: Hospital course, labs appreciated. Examination sitting up in bed on heated high flow of 53% 45 L saturating in low 90s. Patient feeling weak, denies of having any shortness of breath or chest pain currently. 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 1400 cc negative in last 24 hours. Overall 3 L positive since admission. Mornings ABG 7.5 139/64/3 194%-on BiPAP 55% Otherwise has remained hemodynamically stable and afebrile. T-max within last 24 hours 99.2 Fahrenheit Medications: Reviewed: Yes Vitals/I&O/Wt Last Vital Signs Temp 99.2 F 11/27/21 02:00 Pulse 71 11/27/21 15:31 Resp 16 11/27/21 15:31 BP 109/57 11/27/21 14:30 Pulse Ox 96 11/27/21 15:31 11/27/21 11/27/21 11/27/21 06:59 14:59 22:59 Intake Total 150 / 1400 620 / 620 Output Total 1000 / 2800 1000 / 1000 Balance -850 / -1400 620 / 620 -1000 / -380 Weight last 48 hrs Weight 63.458 kg Physical Exam Narrative: General: Alert oriented x3,, frail, weak, no acute distress Cardio: Regular rate rhythm, normal S1-S2 Respiratory: Bilateral coarse crackles present all over the lung velarde, right more than left, decreased air entry bilateral bases GI: Abdomen soft, nontender, nondistended, bowel sounds + Extremities: no edema, no cyanosis.? Bandage left thigh appears clean.? No drainage noted.? Pulses present bilateral lower extremities.? Urinary Catheter Management: Diaz: Cath Placed During This Visit: yes, but has since been removed by the nurse Reason for Continuing Indwelling Catheter: Accurate Measurement of Urinary Output in Critically Ill Patients Urinary Catheter Date of Insertion: 11/26/21 Urinary Catheter Time of Insertion: 20:00 Date Urinary Catheter Removed: 11/25/21 Time Urinary Catheter Discontinued: 15:20 Data : 11/27/21 03:51 11/27/21 03:51 Micro: Microbiology 11/22/21 08:45 Blood Culture - Final Blood NO GROWTH AFTER 5 DAYS 11/22/21 08:50 Blood Culture - Final Blood NO GROWTH AFTER 5 DAYS 11/26/21 20:00 Legionella Urinary Antigen - Final Urine Catheterized A&P Assessment and plan (1) Sepsis with acute hypoxic respiratory failure: Status: Acute (2) Acute respiratory distress syndrome (ARDS): Status: Acute (3) Pneumonia: Status: Acute (4) Aspiration into airway: Status: Acute (5) 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 Currently on noninvasive ventilation Status: Acute (9) Dysphagia: Status: Acute Plan ARDS: Most likely secondary to a combination of aspiration pneumonitis versus pneumonia, possible post 4 unit blood transfusion, new patient who is vaping dependent with a history of lung cancer post radiation. CTA negative for PE. Respiratory viral panel/COVID-19/influenza negative. MRSA positive. BAL cultures so far negative. Pneumocystis PCR negative. Stop atovaquone. Continue with vancomycin and Zosyn for now. Keep vancomycin trough level between 10-15. Will do a 7-day course. Check proBNP, procalcitonin. Add Levaquin 500 mg daily for 5 days for atypical coverage. Increase methylprednisone to 40 mg IV twice daily for now. DuoNebs every 4 hours, budesonide twice daily. Keep net negative for now. Monitor for contraction alkalosis. Strict input output charting, daily weights. Fluid restriction up to 1500 cc. Continue with IV Lasix 40 mg every 12 hourly. Add acetazolamide 500 mg daily for now. Keep oxygen saturation over 88%. Heated high flow for now. BiPAP nightly. Appreciate pulmonology recommendations. Acute blood loss anemia: Post 3 unit blood transfusion. Monitor hemoglobin. IV iron for over 1 g over 5 days. Anxiety: Continue with home dose of Ambifly 5 mg, bupropion 300 mg daily, sertraline 200 mg daily. Nicotine patch. If needed can add Precedex drip. Avoid benzos including Ativan. History of lung cancer post radiation therapy Hip fracture post-ORIF Hepatitis C Amphetamine abuse Analgesia: Tylenol Glycemic control: Not needed Nutrition: As per swallow evaluation CODE STATUS: Full code. Discussed in detail again with the patient. She would like to continue being full code for now. PUD prophylaxis: Protonix DVT prophylaxis: Lovenox Discharge planning: As per PT/OT evaluation. Most likely SNF versus [facility] depending on oxygen supplementation requirement within next 3 to 4 days. Continue with care at ICU care Attestations Medical Necessity Statement*: Requires further hospitalization for management of ARDS in a patient who is post-ORIF for hip fracture, acute blood loss anemia. Critical Care Time: The high probability of a clinically significant, sudden or life threatening deterioration of the patient's [respiratory system(s) required my full and direct attention, intervention and personal management. The critical care time is as shown. This time is in addition to time spent performing any reported procedures but includes the following: [x] Data and vital sign review and interpretation [x] Patient assessment, examination and intervention [x] Documentation [x] Medication orders and management Critical Care Time (min): 90 Coding Level of Care Code Acute Executive Administrative Assistant for Chg Fwd History Comprehensive Exam Comprehensive Medical Decision Making High Complexity Diagnoses Sepsis with acute hypoxic respiratory failure A41.9; R65.20; J96.01 Acute respiratory distress syndrome (ARDS) J80 Ventilator dependent Z99.11 Pneumonia J18.9 Dysphagia R13.10 Aspiration into airway T17.908A 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
--- NOTE | 2021-11-27 17:01 | PC.SOCIAL ---
IMM UPDATED IMM dated and initialed and copy given to patient
--- NOTE | 2021-11-27 17:13 | PM.PN ---
Subjective Subjective: Patient underwent removal of trochanteric nail with takedown of nonunion and repair of distal femoral shaft fracture and supracondylar femur fracture on November 17. Postoperatively, she had significant medical complications and was placed in the intensive care unit. She remains there, but is sitting up in her chair. She has no complaints of pain in her leg at this time. Medications: Reviewed: Yes Vitals/I&O/Wt Last Vital Signs Temp 99.2 F 11/27/21 02:00 Pulse 71 11/27/21 15:31 Resp 16 11/27/21 15:31 BP 109/57 11/27/21 14:30 Pulse Ox 96 11/27/21 15:31 11/27/21 11/27/21 11/27/21 06:59 14:59 22:59 Intake Total 150 / 1400 620 / 620 Output Total 1000 / 2800 1000 / 1000 Balance -850 / -1400 620 / 620 -1000 / -380 Weight last 48 hrs Weight 139 lb 14.4 oz Physical Exam Const: COMMON NORMALS: average body habitus, patient oriented x3 and alert GENERAL APPEARANCE: cooperative and comfortable ORIENTATION/CONSCIOUSNESS: Yes awake HENMT: COMMON NORMALS: normocephalic and atraumatic HEAD & SCALP: normocephalic and atraumatic Eye: GENERAL EYE: appearance normal, both eyes and all related structures Resp: COMMON NORMALS: negative for normal respiratory effort EFFORT & INSPECTION: No able to speak in complete sentences and Yes symmetric chest movement OTHER: Patient is up in a chair with high flow oxygen. She is able to appropriately answer questions. Extremity: LEFT LOWER EXTREMITY: Yes upper leg (Dressings are removed. There is no drainage. Incisions are benign.) Left upper leg: Yes palpation (Minimal to no tenderness.) and Yes neurovascular exam (Intact distally.) Neuro: COMMON NORMALS: patient oriented x3 SENSORIUM/ORIENTATION: Yes alert Psych: COMMON NORMALS: mental status grossly normal APPEARANCE: Yes grossly normal ATTITUDE: Yes calm and Yes engaged ATTENTION/CONCENTRATION: Yes attention grossly intact Skin: COMMON NORMALS: no rashes or lesions noted GENERAL SKIN EXAM: no rashes or lesions noted Urinary Catheter Management: Diaz: Reason for Continuing Indwelling Catheter: Accurate Measurement of Urinary Output in Critically Ill Patients Urinary Catheter Date of Insertion: 11/26/21 Urinary Catheter Time of Insertion: 20:00 Date Urinary Catheter Removed: 11/25/21 Time Urinary Catheter Discontinued: 15:20 Data : 11/27/21 03:51 11/27/21 03:51 Micro: Microbiology 11/22/21 08:45 Blood Culture - Final Blood NO GROWTH AFTER 5 DAYS 11/22/21 08:50 Blood Culture - Final Blood NO GROWTH AFTER 5 DAYS 11/26/21 20:00 Legionella Urinary Antigen - Final Urine Catheterized A&P Assessment and plan (1) Encounter for postoperative care: Patient had significant respiratory problems following her surgical intervention on November 17. These included aspiration pneumonia and acute hypoxic respiratory failure along with ARDS. Today, the patient is up in a chair. She is able to respond appropriate to questions. She is not particularly short of breath, but she is requiring high flow oxygenation. She may participate in physical therapy when appropriate with touchdown weightbearing. 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: Status: Acute Qualifiers: Fracture morphology: oblique Fracture alignment: displaced Qualified Code(s): S72.332K - Displaced oblique fracture of shaft of left femur, subsequent encounter for closed fracture with nonunion (3) Pathological fracture of femur: Status: Acute Qualifiers: Pathology associated with fracture: neoplastic disease Encounter type: sequela Laterality: left Qualified Code(s): M84.552S - Pathological fracture in neoplastic disease, left femur, sequela Attestations Medical Necessity Statement*: Patient continues to require critical care services following postoperative aspiration pneumonia with resultant acute hypoxic respiratory failure and ARDS. 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
[2021-11-27] MEDS: vancomycin 1,000 MG in sodium chloride 0.9% 250 ML 250 MG IV (18:25)
[2021-11-27] MEDS: FUROsemide 10 mg/mL SDV 10mL 40 MG IVP (18:25)
[2021-11-27] MEDS: chlorhexidine gluconate 0.12% Btl 473 mL 15 ML MUCOUS MEM (18:41)
[2021-11-27] MEDS: dexmedeTOMIDine 0.9 % NaCL 400 MCG/100 ML PREMIX IV (19:59)
[2021-11-28] VITALS (58 sets, daily range): BP systolic 75–133; BP diastolic 34–73; PULSE 63–114; RESP 12–31; TEMP 36.8–37.2; O2SAT 65–99; BMI 23.2
[2021-11-28] MEDS: midodrine 5 mg TABLET PO ×4 (00:02→21:40)
[2021-11-28] MEDS: ipratropium-albuterol 3 mL Neb INHALATION ×6 (03:36→23:42)
[2021-11-28 04:21] LABS: Basophils % 0.1 %; Eosinophils % 0.1 %; Hematocrit 26.8 % (37.0-47.0); Hemoglobin 9.2 g/dL (11.5-15.3); Lymphocytes # 0.8 10^3/uL (0.8-4.8); Lymphocytes % 4.8 %; Mean Corpuscular HGB Conc 34.3 g/dL (30.0-36.0); Mean Corpuscular Hemoglobin 29.5 pg (28.0-34.0); Mean Corpuscular Volume 85.9 fl (81-99); Mean Platelet Volume 12.1 fL (7.4-10.4); Monocytes # 0.3 10^3/uL (0.2-0.9); Monocytes % 2.2 %; Neutrophils # 14.48 10^3/uL (1.8-7.7); Neutrophils % 91.6 %; Nucleated Red Blood Cells % 0 %; Platelet Count 196 10^3/cmm (130-400); Red Blood Count 3.12 10^6/uL (4.1-5.3); Red Cell Distribution Width 14.8 % (12.1-15.1); White Blood Count 15.8 10^3/uL (4.0-10.0)
[2021-11-28 04:34] LABS: Alanine Aminotransferase 10 U/L (0-33); Albumin Level 4.3 g/dL (3.5-5.2); Alkaline Phosphatase 53 IU/L (35-105); Blood Urea Nitrogen 33 mg/dL (6-20); Calcium 9.1 mg/dL (8.5-10.5); Carbon Dioxide 24 mmol/L (22-29); Chloride 97 mmol/L (98-107); Chol HDL Ratio 4.83 mg/dL (0.0-4.40); Cholesterol 174 mg/dL (0-200); Glucose 119 mg/dL (65-115); HDL Cholesterol 36 mg/dL (60-100); LDL Cholesterol Calculated 115 mg/dL (50-129); Osmolality Calculated 298 mOsm/kg (285-295); Sodium 140 mmol/L (136-145); Total Bilirubin 0.6 mg/dL (0.15-1.2); Total Protein 7.3 g/dL (6.6-8.7); Triglycerides 116 mg/dL (0-150); VLDL Cholestrol Calculation 23 mg/dL (0-30)
[2021-11-28 04:38] LABS: Anion Gap 22.2 (5-19); Aspartate Amino Transferase 18 U/L (0-32); Potassium 3.2 mmol/L (3.5-5.1)
[2021-11-28 04:41] LABS: Estmated Average Glucose 114; Hemoglobin A1C 5.6 % (4.0-6.0)
[2021-11-28] MEDS: buPROPion XL (24 HR) 300 mg Tablet PO (06:03)
[2021-11-28] MEDS: sucralfate 1 gm Tablet PO ×2 (06:03→17:12)
[2021-11-28] MEDS: levoFLOXacin 500 mg Tablet PO (06:03)
[2021-11-28] MEDS: FUROsemide 10 mg/mL SDV 10mL 40 MG IVP (06:04)
[2021-11-28] MEDS: piperacillin-tazobactam 3.375 GM in sodium chloride 0.9% (plus) 50 ML IV ×3 (06:04→13:40)
[2021-11-28] MEDS: ARIPiprazole 10 mg Tablet 5 MG PO (08:38)
[2021-11-28] MEDS: sertraline 100 mg Tablet 200 MG PO (08:38)
[2021-11-28] MEDS: acetaZOLAMIDE 250 mg Tablet PO (08:39)
[2021-11-28] MEDS: nicotine 21 mg Patch 1 PATCH TRANSDERMA (08:39)
[2021-11-28] MEDS: chlorhexidine gluconate 0.12% Btl 473 mL 15 ML MUCOUS MEM ×2 (09:19→17:18)
[2021-11-28] MEDS: budesonide 0.5 mg/2 mL Neb INHALATION ×2 (09:37→20:28)
--- NOTE | 2021-11-28 09:47 | PC.CHAP ---
Pastoral Care Encounter/Spiritual Assessment Type of Contact [] Declined feller hand visit [] Patient/Family/Request visit [] Outpatient visit [] Follow-up visit [] Physician referral [] Code/Alert [x] Routine visit [] Staff referral [] Actively dying [] Patient sleeping [] Family support [] [] Out of room [] Palliative care [] [x] Receiving care in room [] Pre-surgical visit [] Trauma [] Long length of stay [x] ICU visit [] Other: Relational/Emotional Strength [] Patient feels connected with others/family/visitors/staff [] Distress [] Loneliness/isolation [] Abandonment Spirituality of Patient [] Person of Allison [] Attends Hindu of their [place] [] Believes in Prayer [] Reads Bible or Church materials [] There are Spiritual issues to be addressed Arranging Funeral Director Interventions [x] Prayer [] Active listening [] Non-anxious presence [] Spiritual/emotional support [] Crisis/trauma care [] Spiritual counseling [] Bereavement support [] Provided bereavement packet [] Provided Bible/devotional materials [] Provided toy/stuffed animal, coloring book to patient or family member [] Provided Communion [] Anointing/[place] [] Salvation [x] Completed spiritual assessment [] Other: Impact on Illness or Injury [] Angry [] Fearful [] Anxious [] Often cries [] Exhaustion [] Unable to work [] Unable to attend jehovah's witness [] Unable to walk/stand [] Unable to read [] Unable to drive [] Unable to eat/drink [] Unable to sleep [] Unable to be with family [] Patient intubated [] Other: Summary Time spent with patient
--- NOTE | 2021-11-28 09:56 | XRR_ITS ---
PROCEDURE INFORMATION: Exam: XR Chest Exam date and time: 11/28/2021 10:01 AM Age: 51 years old Clinical indication: Condition or disease; Lung condition and disease; Pneumonia; Cough and shortness of breath; Prior surgery; Surgery type: Port TECHNIQUE: Imaging protocol: XR of the chest. Views: 1 view. COMPARISON: CR XR chest 1V portable [id number] 11/27/2021 8:31 AM FINDINGS: Tubes, catheters and devices: A a MediPort catheter is present with the tip projecting in the SVC. Lungs: There are hazy ground-glass interstitial infiltrates which have significantly improved since the previous radiograph. Is no focal airspace consolidation. Pleural spaces: Unremarkable. No pleural effusion. No pneumothorax. Heart/Mediastinum: Unremarkable. No cardiomegaly. Bones/joints: Unremarkable. XR/XR chest 1V portable [id number] IMPRESSION: The ground-glass interstitial pulmonary infiltrates have improved.
--- NOTE | 2021-11-28 09:56 | P.PN_ITS ---
Subjective Subjective: -Yesterday evening Patient was sitting out of bed to chair she desaturated to 70s and required BiPAP temporarily -Later first rest of the night she was on high flow nasal cannula requiring 45% and 45 L -Today morning-she was made to sit out of bed to chair and again desaturated- temporarily requiring to increase FiO2 to 80%-continue to monitor and taper down FiO2 as needed -I will obtain a ABG and chest x-ray -Patient had a unilateral vocal cord palsy findings on CT chest-suspect if it is contributing her sudden episodes of shortness of breath -Able to take nectar thick liquids without difficulty swallowing -She is awake alert and motivated to work with physical therapy while awaiting placement for long-term acute care facility for recovery Medications: Reviewed: Yes Vitals/I&O/Wt Last Vital Signs Temp 98.9 F 11/28/21 01:00 Pulse 90 11/28/21 09:43 Resp 18 11/28/21 09:43 BP 92/45 11/28/21 08:00 Pulse Ox 71 L 11/28/21 09:43 11/27/21 11/28/21 11/28/21 22:59 06:59 14:59 Intake Total 660.822 / 1280.822 553.985 / 1834.807 360 / 360 Output Total 1500 / 1500 1400 / 2900 Balance -839.178 / -219.178 -846.015 / -1065.193 360 / 360 Weight last 48 hrs Weight 135 lb 8 oz Physical Exam Narrative: PHYSICAL EXAM: General: lying in bed, sedated and intubated. HEENT:NCAT, PERRLA, EOMI Neck: Supple Lungs: Bilateral diffuse crackles Heart: s1/s2, RRR Abd: soft, NT, ND, BS + Normoactive Extremities: No edema SOFTWARE ENGINEER KERNEL: sedated and limited SOFTWARE ENGINEER KERNEL exam possible. SKIN: no rash LDA: # CVC: Left subclavian central line Urinary Catheter Management: Diaz: Cath Placed During This Visit: yes, but has since been removed by the nurse Reason for Continuing Indwelling Catheter: Accurate Measurement of Urinary Output in Critically Ill Patients Urinary Catheter Date of Insertion: 11/26/21 Urinary Catheter Time of Insertion: 20:00 Date Urinary Catheter Removed: 11/25/21 Time Urinary Catheter Discontinued: 15:20 Data : 11/28/21 03:45 11/28/21 03:45 Other Labs: Radiology Impressions Knee X-Ray 11/16/21 14:13 IMPRESSION: Acute or subacute on chronic distal femoral fractures with fractured displaced distal fixation screws and displaced intramedullary kari protruding through the anterior cortex of the femur. The tip of the kari lies 6 mm above the patella, possibly within the joint. Tibia/Fibula X-Ray 11/16/21 14:13 IMPRESSION: 1. Intact lower leg. 2. Femoral intramedullary kari protrudes through the anterior cortex of the distal femur just above the patella. Findings suggest distal femoral fracture of indeterminate acuity. Femur X-Ray 11/17/21 21:23 IMPRESSION: 1. Fixation hardware appears intact. 2. Prominent soft tissue swelling overlying the left hip with expected postsurgical subcutaneous emphysema. Chest CTA 11/21/21 13:21 IMPRESSION: 1. No evidence of pulmonary embolus. 2. Hazy groundglass infiltrates in the LEFT greater than RIGHT perihilar re gions and LEFT greater than RIGHT lower lobes with interlobular septal thickening. Findings can be seen with ARDS, pulmonary edema, and viral pneumonia. Recommend correlation with infectious or inflammatory etiologies including Covid 19 pneumonia. 3. Small bilateral pleural effusions with compressive atelectasis in the lung bases. 4. Partial airspace consolidation in the LEFT lower lobe with air bronchograms consistent with pneumonia measuring 4.6 x 2.7 cm 5. 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 This is unchanged since the prior examination. 6. Progressed soft tissue thickening along the RIGHT hilum and suprahilar likely due to radiation fibrosis. 7. No progressive lymphadenopathy. Neck CT 11/21/21 13:21 IMPRESSION: 1. Above findings suspicious for LEFT vocal cord paralysis described above. Recommend further evaluation with endoscopy. 2. Otherwise no evidence of supraglottic or glottic mass. Subglottic airway is patent. 3. No cervical lymphadenopathy. A few prominent LEFT greater than RIGHT supraclavicular lymph nodes nonspecific but may be reactive. 4. Salivary glands are normal. 5. Mild sphenoid sinusitis. 6. Soft tissue thickening in the LEFT upper lobe likely due to radiation fibrosis. Described on the recent chest CT. 7. Groundglass infiltrates in the lung apices also described on the chest CT. Abdomen/Pelvis CT 11/25/21 08:21 IMPRESSION: 1. No active hemorrhage is seen. No large hematoma is identified. 2. Postsurgical changes in the left hip consistent with removal of surgical hardware and small subcutaneous hemorrhage over the left side of the pelvis and hips. 3. Bilateral pleural effusions larger on the left side. 4. Prominent bilateral interstitial pulmonary infiltrates. This could be due to interstitial edema from heart failure but an interstitial pneumonia should also be considered. 5. Coronary artery calcification. Hip CT 11/25/21 08:35 IMPRESSION: 1. Postsurgical changes consistent with recent removal of metal hardware for old fracture. 2. Subcutaneous infiltration over the left side of the hip consistent with small subcutaneous hemorrhage related to surgery. 3. No large hematomas are seen. Chest X-Ray 11/27/21 08:08 IMPRESSION: Continued bilateral hazy opacifications with minimal progression since 11/26/2021. Differential includes pneumonitis, edema and hemorrhage. Laboratory Results WBC 15.8 10^3/uL (4.0-10.0) H 11/28/21 03:45 RBC 3.12 10^6/uL (4.1-5.3) L 11/28/21 03:45 Hgb 9.2 g/dL (11.5-15.3) L 11/28/21 03:45 Hct 26.8 % (37.0-47.0) L 11/28/21 03:45 MCV 85.9 fl (81-99) 11/28/21 03:45 MCH 29.5 pg (28.0-34.0) 11/28/21 03:45 MCHC 34.3 g/dL (30.0-36.0) 11/28/21 03:45 RDW 14.8 % (12.1-15.1) 11/28/21 03:45 Plt Count 196 10^3/cmm (130-400) 11/28/21 03:45 MPV 12.1 fL (7.4-10.4) H 11/28/21 03:45 Neut % (Auto) 91.6 % 11/28/21 03:45 Lymph % (Auto) 4.8 % 11/28/21 03:45 [place] % (Auto) 2.2 % 11/28/21 03:45 Eos % (Auto) 0.1 % 11/28/21 03:45 Baso % (Auto) 0.1 % 11/28/21 03:45 Neut # (Auto) 14.48 10^3/uL (1.8-7.7) H 11/28/21 03:45 Lymph # (Auto) 0.8 10^3/uL (0.8-4.8) 11/28/21 03:45 [place] # (Auto) 0.3 10^3/uL (0.2-0.9) 11/28/21 03:45 Eos # (Auto) 0.0 10^3/uL (0.0-0.8) 11/28/21 03:45 Baso # (Auto) 0.0 10^3/uL (0.0-0.1) 11/28/21 03:45 Nucleated RBC % (auto) 0 % 11/28/21 03:45 Total Counted 100 (0-100) 11/22/21 08:45 Atypical Lymphs % Not Reportable 11/22/21 08:45 Absolute Neutrophils 14.9 10^3/cmm (1.4-6.5) H 11/22/21 08:45 Segmented Neutrophils 74 % 11/22/21 08:45 Abs Segm Neuts (Man) 12.3 10/cmm (1.6-7.1) H 11/22/21 08:45 Band Neutrophils 16.0 % 11/22/21 08:45 Abs Band Neuts (Man) 2.7 10^3/cmm (0.0-1.2) H 11/22/21 08:45 Lymphocytes (Manual) 5 % 11/22/21 08:45 Monocytes (Manual) 5.0 % 11/22/21 08:45 Absolute Monocytes 0.8 10^3/cmm (0.1-0.6) H 11/22/21 08:45 Eosinophils (Manual) 0 % 11/22/21 08:45 Absolute Eosinophils 0.0 10^3/cmm (0.0-0.7) 11/22/21 08:45 Basophils (Manual) Not Reportable 11/22/21 08:45 Nucleated RBCs # 0.0 /100WBC 11/28/21 03:45 Platelet Estimate Normal (Normal) 11/22/21 08:45 Polychromasia Trace 11/22/21 08:45 Macrocytosis 1+ H 11/22/21 08:45 ESR 41 mm/hr (0-15) H 11/22/21 08:45 PT 16.00 SECONDS (12.1-14.9) H 11/19/21 Unknown INR 1.25 (0.8-1.2) H 11/19/21 Unknown Specimen Type Arterial 11/27/21 04:13 Sample Site Brachial, left 11/27/21 04:13 ABG pH 7.51 (7.35-7.45) H 11/27/21 04:13 ABG pCO2 39.0 mmHg (35-45) 11/27/21 04:13 ABG pO2 64.2 mmHg (80.0-100.0) L 11/27/21 04:13 ABG HCO3 31.2 mmol/L (22-26) H 11/27/21 04:13 ABG O2 Saturation 94.4 11/27/21 04:13 ABG Base Excess 7.6 mmol/L (-2.0-2.0) H 11/27/21 04:13 Tramaine Test Pos 11/27/21 04:13 A-a O2 Gradient 36.0 mmHg (5-10) H 11/27/21 04:13 Hematocrit 25.8 % (37-47) L 11/27/21 04:13 Hgb O2 Saturation 92.7 % (95-100) L 11/27/21 04:13 Carboxyhemoglobin 1.3 %THgb (0.4-20.1) 11/27/21 04:13 Methemoglobin 0.6 % (0.4-1.5) 11/27/21 04:13 Total Hemoglobin 8.4 g/dL (12-16) L 11/27/21 04:13 Sodium 146.0 mmol/L (131-143) H 11/27/21 04:13 Potassium 3.6 mmol/L (3.5-5.0) 11/27/21 04:13 Glucose 129.0 mg/dL (70-115) H 11/27/21 04:13 Ionized Calcium 1.2 mmol/L (1.1-1.4) 11/27/21 04:13 O2 Delivery Device Bipap 11/27/21 04:13 O2 Liters/Min 40.0 % 11/26/21 09:00 FiO2 55.0 % 11/27/21 04:13 Tidal Volume 0.42 11/24/21 03:10 PEEP 8.0 cmH20 11/24/21 03:10 Commercial Crabber ID [place]wal[place] 11/27/21 04:13 Sodium 140 mmol/L (136-145) 11/28/21 03:45 Potassium 3.2 mmol/L (3.5-5.1) L 11/28/21 03:45 Chloride 97 mmol/L (98-107) L 11/28/21 03:45 Carbon Dioxide 24 mmol/L (22-29) 11/28/21 03:45 Anion Gap 22.2 (5-19) H 11/28/21 03:45 BUN 33 mg/dL (6-20) H 11/28/21 03:45 Creatinine 1.0 mg/dL (0.5-0.9) H 11/28/21 03:45 GFR Calculation 58.0 mL/min (90-130) L 11/28/21 03:45 Glucose 119 mg/dL (65-115) H 11/28/21 03:45 POC Glucose 130 mg/dL (70-110) H 11/27/21 03:50 Estimat Average Glucose 114 11/28/21 03:45 Hemoglobin A1c 5.6 % (4.0-6.0) 11/28/21 03:45 Calculated Osmolality 298 mOsm/kg (285-295) H 11/28/21 03:45 Calcium 9.1 mg/dL (8.5-10.5) 11/28/21 03:45 Phosphorus 3.3 mg/dL (2.5-4.5) 11/26/21 03:20 Magnesium 2.1 mg/dL (1.7-2.3) 11/26/21 03:20 Iron 22 ug/dL (37-145) L 11/27/21 03:51 TIBC 195 mcg/dl 11/27/21 03:51 % Saturation 11.2 % (20-50) L 11/27/21 03:51 Unsat Iron Binding 173 ug/dL (112-347) 11/27/21 03:51 Total Bilirubin 0.6 mg/dL (0.15-1.2) 11/28/21 03:45 AST 18 U/L (0-32) 11/28/21 03:45 ALT 10 U/L (0-33) 11/28/21 03:45 Alkaline Phosphatase 53 IU/L (35-105) 11/28/21 03:45 Lactate Dehydrogenase 386 U/L (135-214) H 11/23/21 03:11 Creatine Kinase Cancelled 11/20/21 03:34 C-Reactive Protein 210.9 mg/L (0.0-4.9) H 11/22/21 16:00 NT-Pro-B Natriuret Pep 7112 pg/mL (0-125) H 11/27/21 03:51 Total Protein 7.3 g/dL (6.6-8.7) 11/28/21 03:45 Albumin 4.3 g/dL (3.5-5.2) 11/28/21 03:45 Globulin 3.0 g/dL (1.3-4.6) 11/28/21 03:45 Triglycerides 116 mg/dL (0-150) 11/28/21 03:45 Triglycerides Cancelled 11/28/21 03:45 Cholesterol 174 mg/dL (0-200) 11/28/21 03:45 Cholesterol Cancelled 11/28/21 03:45 LDL Cholesterol, Calc 115 mg/dL (50-129) 11/28/21 03:45 LDL Cholesterol, Calc Cancelled 11/28/21 03:45 Total VLDL Cholesterol 23 mg/dL (0-30) 11/28/21 03:45 Total VLDL Cholesterol Cancelled 11/28/21 03:45 HDL Cholesterol 36 mg/dL (60-100) L 11/28/21 03:45 HDL Cholesterol Cancelled 11/28/21 03:45 Cholesterol/HDL Ratio 4.83 mg/dL (0.0-4.40) H 11/28/21 03:45 Cholesterol/HDL Ratio Cancelled 11/28/21 03:45 Procalcitonin 0.32 ng/mL (0-0.5) 11/27/21 03:51 TSH 0.86 uIU/mL (0.27-4.20) 11/27/21 03:51 Urine Color Yellow (Yellow) 11/16/21 20:05 Urine Appearance Clear (CLEAR) 11/16/21 20:05 Urine pH 5 (5-7) 11/16/21 20:05 Ur Specific [place] 1.020 (1.005-1.030) 11/16/21 20:05 Urine Protein Neg (Negative) 11/16/21 20:05 Urine Glucose (UA) Norm (Normal) 11/16/21 20:05 Urine Ketones Negative (Negative) 11/16/21 20:05 Urine Blood Neg (Negative) 11/16/21 20:05 Urine Nitrate Negative (Negative) 11/16/21 20:05 Urine Bilirubin Neg (Negative) 11/16/21 20:05 Urine Urobilinogen 1 mg/dL (Negative) H 11/16/21 20:05 Ur Leukocyte Esterase 2+ (Negative) H 11/16/21 20:05 Urine RBC 0-4 /hpf (0-2) H 11/16/21 20:05 Urine WBC 10-15 /hpf (0-5) H 11/16/21 20:05 Ur Squamous Epith Cells 0-4 /hpf (0-5) H 11/16/21 20:05 Amorphous Sediment Not Reportable 11/16/21 20:05 Urine Bacteria Trace /hpf (NONE) 11/16/21 20:05 Urine Mucus 2+ /hpf 11/16/21 20:05 Urine Myoglobin Cancelled 11/20/21 11:14 Nasal Influ A H1 2008 PCR Not detected (NOT DETECT) 11/22/21 15:12 Bronch Specimen Source Left lower lobe 11/22/21 13:05 Bronchial Fluid Color Colorless 11/22/21 13:05 Bronchial Fluid Appearance Clear (CLEAR) 11/22/21 13:05 Bronchial Fluid WBC 281 /uL 11/22/21 13:05 Bronchial Fluid RBC 1 10^3/uL 11/22/21 13:05 Bronch Cells Counted 200 11/22/21 13:05 Bronchial Neutrophils 38.00 % (0.9-2.3) H 11/22/21 13:05 Bronchial Lymphocytes 7.00 % (10.71-12.91) L 11/22/21 13:05 Bronchial Eosinophils 2.00 % (0.13-0.25) H 11/22/21 13:05 Bronchial Macrophages 52.00 % (83.6-86.8) L 11/22/21 13:05 Bronchial Other Cells 1 % 11/22/21 13:05 Bronchial Diff Comment Yes 11/22/21 13:05 Vancomycin Trough 10.2 ug/mL (10-15) 11/26/21 18:54 Adenovirus (PCR) Not detected (NOT DETECT) 11/22/21 15:12 C. pneumoniae DNA (PCR) Not detected (NOT DETECT) 11/22/21 15:12 Coronavirus 229E (PCR) Cancelled 11/22/21 16:08 Human Metapneumovir PCR Not detected (NOT DETECT) 11/22/21 15:12 Influenza A (H1) PCR Not detected (NOT DETECT) 11/22/21 15:12 Influenza A (H3) PCR Not detected (NOT DETECT) 11/22/21 15:12 Influenza Type A (PCR) Not detected (NOT DETECT) 11/22/21 15:12 Influenza Type B (PCR) Not detected (NOT DETECT) 11/22/21 15:12 M. pneumoniae (PCR) Not detected (NOT DETECT) 11/22/21 15:12 Parainfluenza 1 (PCR) Not detected (NOT DETECT) 11/22/21 15:12 Parainfluenza 2 (PCR) Not detected (NOT DETECT) 11/22/21 15:12 Parainfluenza 3 (PCR) Not detected (NOT DETECT) 11/22/21 15:12 Parainfluenza 4 (PCR) Not detected (NOT DETECT) 11/22/21 15:12 Pneumocystis Source expectorated sputum 11/22/21 13:05 Pneumocyst jirovecii PCR Not detected 11/22/21 13:05 Aspergillus Ag (EIA) Not detected 11/22/21 13:05 A. galactomannan Ag Idx <0.50 11/22/21 13:05 RSV Type A (PCR) Not detected (NOT DETECT) 11/22/21 15:12 RSV Type B (PCR) Not detected (NOT DETECT) 11/22/21 15:12 Entero/Rhino (PCR) Not detected (NOT DETECT) 11/22/21 15:12 SARS-CoV-2 (PCR) Cancelled 11/22/21 16:08 Blood Type A Negative 11/24/21 07:59 Rho(D) Type Negative 11/24/21 07:59 Antibody Screen Negative 11/24/21 07:59 Crossmatch See Detail 11/24/21 07:59 Micro: Microbiology 11/22/21 08:45 Blood Culture - Final Blood NO GROWTH AFTER 5 DAYS 11/22/21 08:50 Blood Culture - Final Blood NO GROWTH AFTER 5 DAYS A&P Assessment and plan (1) Acute respiratory distress syndrome (ARDS): Status: Acute (2) Sepsis with acute hypoxic respiratory failure: Status: Acute (3) Dysphagia: Status: Acute (4) Aspiration into airway: Status: Acute (5) Lung cancer: Status: Acute (6) COPD (chronic obstructive pulmonary disease): Status: Acute (7) Diuretic-induced hypokalemia: Status: Acute Plan #Acute hypoxic respiratory failure and ARDS in patient with suspected aspiration pneumonia/?TRALI/EVALI-improved initially and then started to worsen #MRSA nares positive #History of difficulty swallowing for 1 to 2 months-high risk for aspiration #CT neck evidence of left vocal cord paralysis #Hypokalemia-secondary to diuretic and patient has episodes of diarrhea -Patient has suspected aspiration event postop day 3-and since then she was requiring supplemental oxygen -intubated 12/14/2021-successfully extubated to 3 L nasal cannula 11/24/2021 ; -Around the time of extubation patient received 1 unit PRBC on 11/24/2021- although she was extubated to 3 L nasal cannula over the ensuing 12 to 24 hours gradual oxygen requirement went up to 5 to 6 L nasal cannula and 24 hours later she was requiring high flow nasal cannula-suspected for component of TRALI -Although oxygen requirement increased 6 hours after transfusion-I will still go ahead and report to blood bank -Family states that patient has been vaping the strongest tobacco/nicotine product available. They confirmed this with-patient's daughter-suspect EVALI -Continue supportive care --Today chest x-ray shows bilateral diffuse GGO with no significant difference -currently on high flow nasal cannula 45 L and 60%-requiring to increase temporarily to 80% while moving her out of bed to chair -I will obtain ABG and chest x-ray for today to look for any worsening -If patient is anxious can start low-dose Precedex and try to avoid Ativan -Currently on vancomycin and Zosyn-to complete 10 days --Today's ABG is metabolic alkalosis with pH 7.51 and serum bicarb 30- recommended to taper down Lasix as she is net -3.2 L over last 72 hours; potassium 3.2-replaced -blood bank worker evaluation for LTAC placement -CT neck findings are suspicious for left vocal cord paralysis;CT chest showed bilateral diffuse GGO's more predominantly on the left perihilar and left lower lobe areas-with infiltrative consolidation with air bronchograms in left lower lobe -Patient Is on Zosyn; -MRSA nares positive-currently on vancomycin to broaden coverage-DC antibiotics after total 10 days -Other causes of sudden hypoxia were also entertained -especially patient was not on DVT prophylaxis postsurgery due to low H&H PE was considered, however CTA ruled out PE-DVT negative on bilateral venous Doppler; - started on Lovenox 40 Mg daily for DVT prophylaxis-gradual drop in H&H to 7 again and transfused 1 unit 11/24/2021 to keep H&H greater than 7/21 and since then it has been stable- external examination did not show any significant swelling or hematoma in the left hip area but recommended orthopedic to have a look at surgical site for bleeding -Given bilateral diffuse GGO's-respiratory viral panel and COVID PCR were sent which were negative;however, I sent for PCP PCR on BAL and as results take at least 1 week-I started her on atovaquone (patient is allergic to sulfa) and IV steroids (PaO2< 70 and AA gradient> 35)-LDH 386 -patient received 2 doses of atovaquone-recommended to DC as PCP PCR is negative -Other causes of bilateral GGO's-BNP 5618 ; fluid overload-secondary to TACO (less likely as she received only 2 units of PRBC initially and 4 days later she received 1 unit on 11/24/2020) ECHO reported normal LV size, systolic function, wall thickness, no regional wall motion abnormalities, normal diastolic function, LVEF 65%. Normal RV size and systolic function. Mild pulmonary hype rtension with RVSP 52. Mildly increased right atrial size. Structurally normal mitral valve. - monitor input output and electrolytes and oxygen requirements, try to keep net negative to even fluid balance -S/p bronchoscopy 11/22/2021-inflamed left bronchial tree and BAL analysis since neutrophilic predominant-bacterial cultures negative, PCP PCR negative, Aspergillus antigen negative, respiratory viral panel negative, fungal cultures, from left lower lobe are still pending #History of squamous cell cancer of lung-s/p chemoradiation and immunotherapy- last dose February 2020 -Developed rash and so discontinued immunotherapy with pembrolizumab -Surveillance CT scans and PET CT scans-showed no recurrence of lung cancer with stable left perihilar opacity consistent with postradiation fibrosis #Patient has history of COPD and being managed by her cut off worker with Breztri 2 puffs twice daily -On DuoNeb every 6 hours as needed #IM nail removal and ORIF left femur-on 11/17/2021 -Stable as per orthopedic -Postop day 2 11/19/2021 patient has drop in H&H-received 2 unit transfusion and since it was stable -Received 1 more unit PRBC again 11/24/2021 for hemoglobin 7-we will monitor CBC and transfuse if H&H less than 7 -Recommended to let Ortho follow-up ICU CHECKLIST: Problem list updated Verbal orders reviewed and signed Glycemic Control: Not required Nutrition: [place] thick liquids Restraint Renewal (within 24 hrs): N/A Ulcer Prophylaxis: PPI Chemical Thromboprophylaxis: Prophylaxis: Lovenox Mechanical Thromboprophylaxis: ICD Need for Central line: Patient had port Need for Diaz catheter: For urine output monitoring Family: Updated at bedside Prognosis: Guarded Code: Full Recommendations conveyed to, RN, RT taking care of the patient Attestations Medical Necessity Statement*: Acute hypoxemic respiratory failure secondary to ARDS due to aspiration pneumonia TRALI/EVALI/MRSA [place]-currently on high flow nasal cannula Time Spent in Patient Care: Greater than 35 minutes (>than 50% of time spent in counselling and/or direct pt care on unit) . Critical Care Time: This patient has a high probability of sudden, clinica lly significant de terioration, which requires the high est level of physi vishal preparedness to intervene urgen tly.? I managed/veloz pervised life or o rgan supporting in terventions that r equired frequent p hysician assessmen t.? I devoted my f ull attention in t he ICU to the dire ct care of this pa tient for the imelda od of time indicat ed above.? Time I spent with family or surrogate(s) is included only if the patient was in capable of providi ng necessary infor mation or particip ating in decision making.? Time ashwini bella to teaching an d to any procedure s I billed separat riaz is not include d. Services Prov ided: Telemetry re view Mechanical Ve ntilation Hemodyna jazzmine interpretation , assessment and m anagement Review a nd interpretation of CXR Review and interpretation of lab values Review and interpretation of microbiologic data and culture r esults Review of m edications and adm inistration Review and interpretatio n of Nutrition req uirements and kathe gement Discussion of management with other consultants and services Clin ical update to [facility] members ? Critical Care Time (min): 65 Coding Level of Care Code Established Pt Acute Speech Pathology Assistant for Chg Fwd Patient Type Established History Comprehensive Exam Comprehensive Medical Decision Making High Complexity Diagnoses Acute respiratory distress syndrome (ARDS) J80 Sepsis with acute hypoxic respiratory failure A41.9; R65.20; J96.01 Dysphagia R13.10 Aspiration into airway T17.908A Lung cancer C34.90 COPD (chronic obstructive pulmonary disease) J44.9 Diuretic-induced hypokalemia E87.6; T50.2X5A Time Spent (min) 45
[2021-11-28] MEDS: pantoprazole 40 mg SDV IVP ×3 (10:04→21:23)
[2021-11-28] MEDS: iron sucrose 200 MG in sodium chloride 0.9% (100 ml) 100 ML 220 MG IV (10:04)
--- NOTE | 2021-11-28 10:39 | PM.PN ---
Subjective Subjective: Today morning on examination patient lying comfortably in bed. She was up in the chair for most of the day yesterday. In the evening on transitioning from she desaturated down into the 70s after which she was temporarily on BiPAP. While on BiPAP she was on Precedex drip which was stopped earlier today morning. Currently she is on 45% 50 L. Today morning on ambulation from bed to chair she desaturated again and was put up to 80% FiO2 which was being weaned down. Patient otherwise has remained hemodynamically stable and afebrile. Medications: Reviewed: Yes Vitals/I&O/Wt Last Vital Signs Temp 98.9 F 11/28/21 01:00 Pulse 85 11/28/21 10:00 Resp 22 H 11/28/21 10:00 BP 102/48 11/28/21 10:00 Pulse Ox 90 11/28/21 10:00 11/27/21 11/28/21 11/28/21 22:59 06:59 14:59 Intake Total 660.822 / 1280.822 553.985 / 1834.807 520 / 520 Output Total 1500 / 1500 1400 / 2900 Balance -839.178 / -219.178 -846.015 / -1065.193 520 / 520 Weight last 48 hrs Weight 61.462 kg Physical Exam Narrative: General: Alert oriented x3,, frail, weak, no acute distress Cardio: Regular rate rhythm, normal S1-S2 Respiratory: Bilateral coarse crackles present all over the lung velarde, right more than left, decreased air entry bilateral bases GI: Abdomen soft, nontender, nondistended, bowel sounds + Extremities: no edema, no cyanosis.? Bandage left thigh appears clean.? No drainage noted.? Pulses present bilateral lower extremities.? Urinary Catheter Management: Diaz: Cath Placed During This Visit: yes, but has since been removed by the nurse Reason for Continuing Indwelling Catheter: Accurate Measurement of Urinary Output in Critically Ill Patients Urinary Catheter Date of Insertion: 11/26/21 Urinary Catheter Time of Insertion: 20:00 Date Urinary Catheter Removed: 11/25/21 Time Urinary Catheter Discontinued: 15:20 Data : 11/28/21 03:45 11/28/21 03:45 Micro: Microbiology 11/22/21 08:45 Blood Culture - Final Blood NO GROWTH AFTER 5 DAYS 11/22/21 08:50 Blood Culture - Final Blood NO GROWTH AFTER 5 DAYS A&P Assessment and plan (1) Sepsis with acute hypoxic respiratory failure: Status: Acute (2) Acute respiratory distress syndrome (ARDS): Status: Acute (3) Pneumonia: Status: Acute (4) Aspiration into airway: Status: Acute (5) 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 Currently on noninvasive ventilation Status: Acute (9) Dysphagia: Status: Acute Plan ARDS: Most likely secondary to a combination of aspiration pneumonitis versus pneumonia, possible TRALI post 3 unit blood transfusion, in a patient who is vaping dependent with a history of lung cancer post radiation. CTA negative for PE. Respiratory viral panel/COVID-19/influenza negative. MRSA positive. BAL cultures so far negative. Pneumocystis PCR negative. Stop atovaquone. Continue with vancomycin and Zosyn for now. Keep vancomycin trough level between 10-15. Will do a 7-day course. C/w Levaquin 500 mg daily for 5 days for atypical coverage. C/w methylprednisone to 40 mg IV twice daily for now. Will wean down gradually. DuoNebs every 4 hours, budesonide twice daily. Keep net negative for now. Monitor for contraction alkalosis. Strict input output charting, daily weights. Fluid restriction up to 1500 cc. Decrease IV Lasix 40 mgto daily. Decrease acetazolamide to 250 mg daily for now. Keep oxygen saturation over 88%. Heated high flow for now. BiPAP nightly. Appreciate pulmonology recommendations. Acute blood loss anemia: Post 3 unit blood transfusion. Monitor hemoglobin. IV iron for over 1 g over 5 days. Anxiety: Continue with home dose of Ambifly 5 mg, bupropion 300 mg daily, sertraline 200 mg daily. Nicotine patch. If needed can add Precedex drip. Avoid benzos including Ativan. History of lung cancer post radiation therapy Hip fracture post-ORIF Hepatitis C Amphetamine abuse Analgesia: Tylenol as needed Glycemic control: Not needed Nutrition: Advance as per swallow evaluation CODE STATUS: Full code. Discussed in detail again with the patient. She would like to continue being full code for now. PUD prophylaxis: Protonix DVT prophylaxis: Lovenox Discharge planning: Given high oxygen requirements patient would most likely need placement to select for further lung rehab. Patient and family is agreeable. Case management alerted. Continue with care at ICU care Plan for day: Repeat ABG. Chest x-ray today morning shows resolution. Replete potassium. Hold Lasix 40 mg daily, acetazolamide to 250 mg daily. Will dose accordingly in a.m. tomorrow. Out of bed to chair. Incentive spirometry/flutter valve. Continue with Solu-Medrol 40 mg twice daily. Last day of Zosyn today. Last dose vancomycin 12/01, last days of Levaquin 12/02. Attestations Medical Necessity Statement*: Patient reports for the last secondary to aspiration pneumonitis versus transfusion dependent lung injury in a patient with acute blood loss anemia post ORIF Critical Care Time: The high probability of a clinically significant, sudden or life threatening deterioration of the patient's [pulm . required my full and direct attention, intervention and personal management. The critical care time is as shown. 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
[2021-11-28 11:10] LABS: Base Excess ABG 0.6 mmol/L (-2.0-2.0); Blood Gas Sample Type Arterial; Carboxyhemoglobin 1.2 %THgb (0.4-20.1); Ionized Calcium Level - ABG 1.2 mmol/L (1.1-1.4)
[2021-11-28] MEDS: potassium chloride premix 100 ML 50 MEQ IV (11:21)
[2021-11-28 11:37] LABS: ABG PH Result 7.49 (7.35-7.45); Alveolar-Arterial Oxygen Gradi 53.2 mmHg (5-10); Arterial Blood Gas Hematocrit 40.3 % (37-47); Blood Gas Operator Identificat glc; Blood Gas Sample Site Brachial, right; HCO3 ABG 23.1 mmol/L (22-26); HGB O2 Sat 86.1 % (95-100); Methemoglobin 0.5 % (0.4-1.5); Oxygen Device HAG; Oxygen Saturation ABG 87.6; Potassium Level - ABG 2.4 mmol/L (3.5-5.0); Total Hemoglobin 13.2 g/dL (12-16)
[2021-11-28 11:42] LABS: ABG PCO2 36.1 mmHg (35-45); ABG PH Result 7.44 (7.35-7.45)
[2021-11-28 11:43] LABS: Base Excess ABG 0.6 mmol/L (-2.0-2.0); Blood Gas Allen Test POS; HCO3 ABG 24.6 mmol/L (22-26); Oxygen Device NC; Oxygen Saturation ABG 91.6; PO2 ABG 58.5 mmHg (80.0-100.0); Potassium Level - ABG 2.8 mmol/L (3.5-5.0)
[2021-11-28 11:44] LABS: Arterial Blood Gas Hematocrit 28.4 % (37-47); Blood Gas Sample Type Arterial
[2021-11-28 11:45] LABS: Carboxyhemoglobin 1.2 %THgb (0.4-20.1); HGB O2 Sat 90.2 % (95-100); Ionized Calcium Level - ABG 1.2 mmol/L (1.1-1.4); Methemoglobin 0.3 % (0.4-1.5); Total Hemoglobin 9.3 g/dL (12-16)
[2021-11-28] MEDS: enoxaparin 40 mg/0.4 mL Syringe SUBCUT (13:40)
[2021-11-28] MEDS: vancomycin 1,000 MG in sodium chloride 0.9% 250 ML 250 MG IV (18:10)
[2021-11-29] VITALS (89 sets, daily range): BP systolic 78–122; BP diastolic 42–65; PULSE 64–102; RESP 9–38; TEMP 36.6–37.6; O2SAT 73–99
[2021-11-29] MEDS: ipratropium-albuterol 3 mL Neb INHALATION ×6 (03:21→23:07)
[2021-11-29] MEDS: levoFLOXacin 500 mg Tablet PO (05:15)
[2021-11-29] MEDS: dexmedeTOMIDine 0.9 % NaCL 400 MCG/100 ML PREMIX IV (05:15)
[2021-11-29] MEDS: buPROPion XL (24 HR) 300 mg Tablet PO (05:15)
[2021-11-29] MEDS: midodrine 5 mg TABLET PO ×3 (05:31→21:34)
[2021-11-29 06:46] LABS: ABG PH Result 7.46 (7.35-7.45); Arterial Blood Gas Hematocrit 30.7 % (37-47); Base Excess ABG -2.7 mmol/L (-2.0-2.0); Blood Gas Sample Site Brachial, right; Blood Gas Sample Type Arterial; Carboxyhemoglobin 1.1 %THgb (0.4-20.1); HCO3 ABG 20.4 mmol/L (22-26); Ionized Calcium Level - ABG 1.2 mmol/L (1.1-1.4); Methemoglobin 0.2 % (0.4-1.5); Oxygen Device NC; PO2 ABG 39.9 mmHg (80.0-100.0); Potassium Level - ABG 2.5 mmol/L (3.5-5.0)
[2021-11-29 06:55] LABS: Alveolar-Arterial Oxygen Gradi 40.9 mmHg (5-10)
[2021-11-29] MEDS: budesonide 0.5 mg/2 mL Neb INHALATION ×2 (08:10→19:34)
--- NOTE | 2021-11-29 08:51 | XRR_ITS ---
PROCEDURE INFORMATION: Exam: XR Chest Exam date and time: 11/29/2021 9:04 AM Age: 51 years old Clinical indication: Shortness of breath; Additional info: SOB TECHNIQUE: Imaging protocol: Radiologic exam of the chest. Views: 1 view. COMPARISON: CR XR chest 1V portable [id number] 11/28/2021 10:01 AM FINDINGS: Tubes, catheters and devices: Left-sided Port-A-Cath terminates in the region of the superior cavoatrial junction. Lungs: Similar hazy ground-glass infiltrates in the lungs bilaterally. Pleural spaces: Unremarkable. No pleural effusion. No pneumothorax. Heart/Mediastinum: Unremarkable. No cardiomegaly. Bones/joints: Unremarkable. XR/XR chest 1V portable [id number] IMPRESSION: Similar hazy ground-glass infiltrates in the lungs bilaterally, which may reflect pulmonary edema and/or infection.
[2021-11-29] MEDS: acetaZOLAMIDE 250 mg Tablet PO (09:39)
[2021-11-29] MEDS: ARIPiprazole 10 mg Tablet 5 MG PO (09:39)
[2021-11-29] MEDS: nicotine 21 mg Patch 1 PATCH TRANSDERMA (09:39)
[2021-11-29] MEDS: docusate sodium 100 mg Capsule PO (09:39)
[2021-11-29] MEDS: sucralfate 1 gm Tablet PO ×2 (09:39→19:14)
[2021-11-29] MEDS: sertraline 100 mg Tablet 200 MG PO (09:39)
[2021-11-29] MEDS: pantoprazole 40 mg SDV IVP ×2 (09:40→21:34)
[2021-11-29 10:28] LABS: ABG PCO2 25.3 mmHg (35-45); ABG PH Result 7.49 (7.35-7.45); Alveolar-Arterial Oxygen Gradi 39.4 mmHg (5-10); Arterial Blood Gas Hematocrit 31.9 % (37-47); Base Excess ABG -3.2 mmol/L (-2.0-2.0); Blood Gas Allen Test Pos; Blood Gas Operator Identificat BD; Blood Gas Sample Site Brachial, left; Blood Gas Sample Type Arterial; Carboxyhemoglobin 1.1 %THgb (0.4-20.1); HCO3 ABG 19.1 mmol/L (22-26); Ionized Calcium Level - ABG 1.2 mmol/L (1.1-1.4); Methemoglobin 0.3 % (0.4-1.5); Oxygen Device NC; Oxygen Saturation ABG 93.3; PO2 ABG 55.3 mmHg (80.0-100.0); Potassium Level - ABG 2.3 mmol/L (3.5-5.0); Total Hemoglobin 10.4 g/dL (12-16)
--- NOTE | 2021-11-29 10:46 | PC.CHAP ---
Pastoral Care Encounter/Spiritual Assessment Type of Contact [] Declined statistics manager visit [] Patient/Family/Request visit [] Outpatient visit [] Follow-up visit [] Physician referral [] Code/Alert [x] Routine visit [] Staff referral [] Actively dying [] Patient sleeping [x] Family support [] [] Out of room [] Palliative care [] [x] Receiving care in room [] Pre-surgical visit [] Trauma [] Long length of stay [x] ICU visit [] Other: Relational/Emotional Strength [] Patient feels connected with others/family/visitors/staff [] Distress [] Loneliness/isolation [] Abandonment Spirituality of Patient [] Person of [place] [] Attends Church of their [place] [] Believes in Prayer [] Reads Bible or Jewish materials [] There are Spiritual issues to be addressed Pottery Machine Operator Interventions [x] Prayer [] Active listening [] Non-anxious presence [] Spiritual/emotional support [] Crisis/trauma care [] Spiritual counseling [] Bereavement support [] Provided bereavement packet [] Provided Bible/devotional materials [] Provided toy/stuffed animal, coloring book to patient or family member [] Provided Communion [] Anointing/[place] [] Salvation [x] Completed spiritual assessment [] Other: Impact on Illness or Injury [] Angry [] Fearful [] Anxious [] Often cries [] Exhaustion [] Unable to work [] Unable to attend jew [] Unable to walk/stand [] Unable to read [] Unable to drive [] Unable to eat/drink [] Unable to sleep [] Unable to be with family [] Patient intubated [] Other: Summary Time spent with patient
[2021-11-29 11:50] LABS: Alanine Aminotransferase 11 U/L (0-33); Albumin Level 3.7 g/dL (3.5-5.2); Alkaline Phosphatase 59 IU/L (35-105); Anion Gap 19.2 (5-19); Aspartate Amino Transferase 19 U/L (0-32); Blood Urea Nitrogen 34 mg/dL (6-20); Calcium 8.7 mg/dL (8.5-10.5); Carbon Dioxide 20 mmol/L (22-29); Chloride 99 mmol/L (98-107); Globulin 3.5 g/dL (1.3-4.6); Glucose 93 mg/dL (65-115); Osmolality Calculated 289 mOsm/kg (285-295); Sodium 136 mmol/L (136-145); Total Bilirubin 0.5 mg/dL (0.15-1.2); Total Protein 7.2 g/dL (6.6-8.7)
[2021-11-29] MEDS: iron sucrose 200 MG in sodium chloride 0.9% (100 ml) 100 ML 220 MG IV (11:51)
[2021-11-29] MEDS: chlorhexidine gluconate 0.12% Btl 473 mL 15 ML MUCOUS MEM ×2 (11:52→19:15)
[2021-11-29 12:36] LABS: Potassium 2.2 mmol/L (3.5-5.1)
[2021-11-29] MEDS: potassium chloride ER 20 mEq Tablet 40 MEQ PO ×3 (13:15→15:31)
[2021-11-29] MEDS: enoxaparin 40 mg/0.4 mL Syringe SUBCUT (13:20)
--- NOTE | 2021-11-29 14:09 | PC.SOCIAL ---
IMM Updated Updated pt on IMM. No questions voiced. Provided pt a copy. Initialed, dated, & timed copy in chart.
[2021-11-29] MEDS: morphine 4 mg/mL SDV 1 mL 1 MG IVP ×3 (15:16→23:30)
--- NOTE | 2021-11-29 17:06 | PM.PN ---
Subjective Subjective: No events overnight. Patient today morning states she is feeling extremely tired. Tearful during the day. Has been on Precedex of 0.3. Did not get BiPAP ventilation overnight. Has remained hemodynamically stable otherwise. Did sit out of bed to chair during the day. Remains on heated high flow of 55% 55 L. Medications: Reviewed: Yes Vitals/I&O/Wt Last Vital Signs Temp 98 F 11/29/21 12:30 Pulse 91 11/29/21 15:30 Resp 21 H 11/29/21 15:30 BP 101/65 11/29/21 15:30 Pulse Ox 84 L 11/29/21 15:30 11/29/21 11/29/21 11/29/21 06:59 14:59 22:59 Intake Total 539.012 / 2075.270 221.02 / 221.02 118.745 / 339.765 Output Total 400 / 1850 200 / 200 Balance 139.012 / 225.270 21.02 / 21.02 118.745 / 139.765 Weight last 48 hrs Weight 61.462 kg Physical Exam Narrative: General: Alert oriented x3,, frail, weak, no acute distress Cardio: Regular rate rhythm, normal S1-S2 Respiratory: Bilateral coarse crackles present all over the lung velarde, right more than left, decreased air entry bilateral bases GI: Abdomen soft, nontender, nondistended, bowel sounds + Extremities: no edema, no cyanosis.? Bandage left thigh appears clean.? No drainage noted.? Pulses present bilateral lower extremities.? Urinary Catheter Management: Diaz: Cath Placed During This Visit: yes, but has since been removed by the nurse Reason for Continuing Indwelling Catheter: Accurate Measurement of Urinary Output in Critically Ill Patients Urinary Catheter Date of Insertion: 11/26/21 Urinary Catheter Time of Insertion: 20:00 Date Urinary Catheter Removed: 11/25/21 Time Urinary Catheter Discontinued: 15:20 Data : 11/30/21 05:16 11/30/21 05:16 A&P Assessment and plan (1) Sepsis with acute hypoxic respiratory failure: Status: Acute (2) Acute respiratory distress syndrome (ARDS): Status: Acute (3) Pneumonia: Status: Acute (4) Aspiration into airway: Status: Acute (5) 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 Currently on noninvasive ventilation Status: Acute (9) Dysphagia: Status: Acute Plan ARDS: Most likely secondary to a combination of aspiration pneumonitis versus pneumonia, possible TRALI post 3 unit blood transfusion, in a patient who is vaping dependent with a history of lung cancer post radiation. CTA negative for PE. Respiratory viral panel/COVID-19/influenza negative. MRSA positive. BAL cultures so far negative. Pneumocystis PCR negative. Stop atovaquone. Continue with vancomycin and Zosyn for now. Keep vancomycin trough level between 10-15. Will do a 7-day course. C/w Levaquin 500 mg daily for 5 days for atypical coverage. C/w methylprednisone to 40 mg IV twice daily for now. Will wean down gradually. DuoNebs every 4 hours, budesonide twice daily. Keep net negative for now. Monitor for contraction alkalosis. Strict input output charting, daily weights. Fluid restriction up to 1500 cc. Decrease IV Lasix 40 mgto daily. Decrease acetazolamide to 250 mg daily for now. Keep oxygen saturation over 88%. Heated high flow for now. BiPAP nightly. Appreciate pulmonology recommendations. Acute blood loss anemia: Post 3 unit blood transfusion. Monitor hemoglobin. IV iron for over 1 g over 5 days. Anxiety: Continue with home dose of Ambifly 5 mg, bupropion 300 mg daily, sertraline 200 mg daily. Nicotine patch. If needed can add Precedex drip. Avoid benzos including Ativan. History of lung cancer post radiation therapy Hip fracture post-ORIF Hepatitis C Amphetamine abuse Analgesia: Tylenol as needed Glycemic control: Not needed Nutrition: Advance as per swallow evaluation CODE STATUS: Full code. Discussed in detail again with the patient. She would like to continue being full code for now. PUD prophylaxis: Protonix DVT prophylaxis: Lovenox Discharge planning: Given high oxygen requirements patient would most likely need placement to select for further lung rehab. Patient and family is agreeable. Case management alerted. Continue with care at ICU care Plan for day: IV Lasix 40 mg once. Out of bed to chair. Incentive spirometry/flutter valve. PT/OT. Speech therapy. Advance diet accordingly. Finished course of Zosyn. We will try to switch to high flow nasal cannula. Keep saturation over 88%. 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
--- NOTE | 2021-11-29 17:31 | P.PN_ITS ---
Subjective Subjective: Patient is again seen in the intensive care unit. She is up in a chair still on high volume oxygen. Medications: Reviewed: Yes Vitals/I&O/Wt Last Vital Signs Temp 98 F 11/29/21 12:30 Pulse 91 11/29/21 15:30 Resp 21 H 11/29/21 15:30 BP 101/65 11/29/21 15:30 Pulse Ox 84 L 11/29/21 15:30 11/29/21 11/29/21 11/29/21 06:59 14:59 22:59 Intake Total 539.012 / 2075.270 221.02 / 221.02 118.745 / 339.765 Output Total 400 / 1850 200 / 200 Balance 139.012 / 225.270 21.02 / 21.02 118.745 / 139.765 Weight last 48 hrs Weight 135 lb 8 oz Physical Exam Const: COMMON NORMALS: average body habitus, patient oriented x3 and alert GENERAL APPEARANCE: cooperative and comfortable ORIENTATION/CONSCIOUSNESS: Yes awake HENMT: COMMON NORMALS: normocephalic and atraumatic HEAD & SCALP: normocephalic and atraumatic Eye: GENERAL EYE: appearance normal, both eyes and all related structures Chest: COMMONS NORMALS: normal inspection of the chest Resp: COMMON NORMALS: negative for normal respiratory effort EFFORT & INSPECTION: No able to speak in complete sentences and Yes symmetric chest movement OTHER: Patient is up in a chair with high flow oxygen. She is able to appropriately answer questions. Extremity: LEFT LOWER EXTREMITY: Yes upper leg (Swelling is decreasing.) Left upper leg: Yes inspection (Dressings have been removed. Wound is benign. No drainage.), Yes palpation (Minimal to no tenderness.) and Yes neurovascular exam (Intact distally.) Neuro: COMMON NORMALS: patient oriented x3 SENSORIUM/ORIENTATION: Yes alert Psych: COMMON NORMALS: mental status grossly normal APPEARANCE: Yes grossly normal ATTITUDE: Yes calm and Yes engaged ATTENTION/CONCENTRATION: Yes attention grossly intact Skin: COMMON NORMALS: no rashes or lesions noted GENERAL SKIN EXAM: no rashes or lesions noted Urinary Catheter Management: Diaz: Cath Placed During This Visit: yes, but has since been removed by the nurse Reason for Continuing Indwelling Catheter: Accurate Measurement of Urinary Output in Critically Ill Patients Urinary Catheter Date of Insertion: 11/26/21 Urinary Catheter Time of Insertion: 20:00 Date Urinary Catheter Removed: 11/25/21 Time Urinary Catheter Discontinued: 15:20 Data : 11/28/21 03:45 11/29/21 10:00 A&P Assessment and plan (1) Encounter for postoperative care: Patient had significant respiratory problems following her surgical intervention on November 17. These included aspiration pneumonia and acute hypoxic respiratory failure along with ARDS. Today, the patient is up in a chair. She is able to respond appropriate to questions. She is not particularly short of breath, but she is requiring high flow oxygenation. She may participate in physical therapy when appropriate with touchdown weightbearing. Plans are being made for dischar ge to select for post acute hospital care. 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
--- NOTE | 2021-11-29 17:51 | PC.NURSE ---
Per Dr connor, nurse attempted to removed the current dressing from the left upper leg. Only thing left in place over leonid is clear tape. When attempting to remove the tape, it was pulling the leonid out. Nurse left clear tape in place, Orders in place for staple removal on the .
--- NOTE | 2021-11-29 18:29 | PC.NURSE ---
SHift Summary: Uneventful shift. Patient was up to the chair for about 8 hours of the day. Total urine output has been 300mL. Patient remained on heated high flow, 55L/55% throughout the day. Saturation varied greatly depending on activity. When eating, or talking with fmaily, saturation drops below 85%. When at rest, it is in the high 80's to low 90's. Precedex has been titrated off. Patient is agreeable to bipap at night.
[2021-11-29] MEDS: vancomycin 1,000 MG in sodium chloride 0.9% 250 ML 250 MG IV (19:15)
[2021-11-29 21:09] LABS: Anion Gap 17.3 (5-19); Blood Urea Nitrogen 35 mg/dL (6-20); Calcium 8.6 mg/dL (8.5-10.5); Carbon Dioxide 19 mmol/L (22-29); Chloride 100 mmol/L (98-107); Glucose 108 mg/dL (65-115); Osmolality Calculated 285 mOsm/kg (285-295); Potassium 3.3 mmol/L (3.5-5.1); Sodium 133 mmol/L (136-145)
[2021-11-29] MEDS: temazepam 15 mg Capsule PO (21:34)
--- NOTE | 2021-11-29 23:50 | PC.NURSE ---
Activity Patient transferred from bed to bedside commode and back with 2x assist. Oxygen saturation did drop to low 80s during activity with bipap at 60% FIO2. Once settled back in bed patient's oxygen saturation recovered to low 90s. Patient tolerated activity fair overall, with complaint of pain in left leg. See MAR for pain medication administration.
[2021-11-30] VITALS (40 sets, daily range): BP systolic 86–120; BP diastolic 45–68; PULSE 71–94; RESP 18–40; TEMP 36.5–37.3; O2SAT 81–100; BMI 21.9
[2021-11-30] MEDS: ipratropium-albuterol 3 mL Neb INHALATION ×5 (04:06→20:32)
[2021-11-30 04:50] LABS: ABG PCO2 32.7 mmHg (35-45); ABG PH Result 7.36 (7.35-7.45); Alveolar-Arterial Oxygen Gradi 34.6 mmHg (5-10); Arterial Blood Gas Hematocrit 29.9 % (37-47); Base Excess ABG -6.3 mmol/L (-2.0-2.0); Blood Gas Allen Test Pos; Blood Gas Sample Site Radial, right; Blood Gas Sample Type Arterial; Carboxyhemoglobin 1.2 %THgb (0.4-20.1); HCO3 ABG 18.4 mmol/L (22-26); HGB O2 Sat 82.9 % (95-100); Ionized Calcium Level - ABG 1.3 mmol/L (1.1-1.4); Methemoglobin 0.3 % (0.4-1.5); Oxygen Device BIPAP; Oxygen Saturation ABG 84.1; PO2 ABG 49.5 mmHg (80.0-100.0); Potassium Level - ABG 3.3 mmol/L (3.5-5.0); Total Hemoglobin 9.7 g/dL (12-16)
[2021-11-30 05:51] LABS: Basophils % 0.3 %; Eosinophils # 0.5 10^3/uL (0.0-0.8); Eosinophils % 3.1 %; Hematocrit 27.6 % (37.0-47.0); Hemoglobin 9.3 g/dL (11.5-15.3); Lymphocytes # 0.9 10^3/uL (0.8-4.8); Lymphocytes % 5.8 %; Mean Corpuscular HGB Conc 33.7 g/dL (30.0-36.0); Mean Corpuscular Hemoglobin 29.8 pg (28.0-34.0); Mean Corpuscular Volume 88.5 fl (81-99); Mean Platelet Volume 12.4 fL (7.4-10.4); Monocytes # 0.4 10^3/uL (0.2-0.9); Monocytes % 2.5 %; Neutrophils % 85.6 %; Nucleated Red Blood Cells % 0 %; Platelet Count 76 10^3/cmm (130-400); Red Blood Count 3.12 10^6/uL (4.1-5.3); Red Cell Distribution Width 14.9 % (12.1-15.1); White Blood Count 15.1 10^3/uL (4.0-10.0)
[2021-11-30 06:07] LABS: Alanine Aminotransferase 12 U/L (0-33); Albumin Level 3.3 g/dL (3.5-5.2); Alkaline Phosphatase 69 IU/L (35-105); Anion Gap 16.2 (5-19); Aspartate Amino Transferase 25 U/L (0-32); Blood Urea Nitrogen 30 mg/dL (6-20); Calcium 8.6 mg/dL (8.5-10.5); Carbon Dioxide 20 mmol/L (22-29); Chloride 104 mmol/L (98-107); Globulin 3.2 g/dL (1.3-4.6); Glomerular Filtration Rate 65.5 mL/min (90-130); Glucose 98 mg/dL (65-115); Osmolality Calculated 290 mOsm/kg (285-295); Potassium 3.2 mmol/L (3.5-5.1); Sodium 137 mmol/L (136-145); Total Bilirubin 0.5 mg/dL (0.15-1.2); Total Protein 6.5 g/dL (6.6-8.7)
[2021-11-30] MEDS: levoFLOXacin 500 mg Tablet PO (06:07)
[2021-11-30] MEDS: sucralfate 1 gm Tablet PO ×2 (06:07→17:46)
[2021-11-30] MEDS: buPROPion XL (24 HR) 300 mg Tablet PO (06:07)
[2021-11-30] MEDS: midodrine 5 mg TABLET PO ×3 (06:07→21:03)
--- NOTE | 2021-11-30 07:05 | PC.NURSE ---
Robert report completed with JENA Madrid.
[2021-11-30] MEDS: budesonide 0.5 mg/2 mL Neb INHALATION ×2 (08:22→20:32)
[2021-11-30] MEDS: ARIPiprazole 10 mg Tablet 5 MG PO (08:54)
[2021-11-30] MEDS: iron sucrose 200 MG in sodium chloride 0.9% (100 ml) 100 ML 220 MG IV (09:48)
[2021-11-30] MEDS: sertraline 100 mg Tablet 200 MG PO (09:50)
[2021-11-30] MEDS: pantoprazole 40 mg SDV IVP ×2 (09:51→21:03)
[2021-11-30] MEDS: FUROsemide 40 mg Tablet PO ×2 (09:51→15:16)
[2021-11-30] MEDS: potassium chloride ER 20 mEq Tablet 40 MEQ PO (09:51)
[2021-11-30] MEDS: chlorhexidine gluconate 0.12% Btl 473 mL 15 ML MUCOUS MEM ×2 (10:13→21:04)
[2021-11-30] MEDS: enoxaparin 40 mg/0.4 mL Syringe SUBCUT (15:16)
[2021-11-30] MEDS: morphine 4 mg/mL SDV 1 mL 1 MG IVP ×2 (15:25→20:01)
--- NOTE | 2021-11-30 16:44 | P.PN_ITS ---
Subjective Subjective: No events overnight. Today morning patient states she is feeling a lot better than yesterday. Denies any nausea, vomiting, dizziness, headache. Being transitioned over from heated high flow to high flow nasal cannula today. Keep saturation over 88%. States she is learning how to breathe with vocal cord paralysis now. Medications: Reviewed: Yes Vitals/I&O/Wt Last Vital Signs Temp 98.5 F 11/30/21 13:00 Pulse 76 11/30/21 16:00 Resp 30 H 11/30/21 16:00 BP 102/59 11/30/21 16:00 Pulse Ox 89 L 11/30/21 16:00 11/30/21 11/30/21 11/30/21 06:59 14:59 22:59 Intake Total 398 / 1627.765 400 / 400 Output Total 500 / 800 400 / 400 Balance -102 / 827.765 0 / 0 Weight last 48 hrs Weight 57.969 kg Physical Exam Narrative: General: Alert oriented x3,, frail, weak, no acute distress Cardio: Regular rate rhythm, normal S1-S2 Respiratory: Bilateral coarse crackles present all over the lung velarde, right more than left, decreased air entry bilateral bases GI: Abdomen soft, nontender, nondistended, bowel sounds + Extremities: no edema, no cyanosis.? Bandage left thigh appears clean.? No drainage noted.? Pulses present bilateral lower extremities.? Urinary Catheter Management: Diaz: Cath Placed During This Visit: yes, but has since been removed by the nurse Reason for Continuing Indwelling Catheter: Decision to DC Catheter Urinary Catheter Date of Insertion: 11/26/21 Urinary Catheter Time of Insertion: 20:00 Date Urinary Catheter Removed: 11/30/21 Time Urinary Catheter Discontinued: 10:00 Data : 11/30/21 05:16 11/30/21 05:16 A&P Assessment and plan (1) Sepsis with acute hypoxic respiratory failure: Status: Acute (2) Acute respiratory distress syndrome (ARDS): Status: Acute (3) Pneumonia: Status: Acute (4) Aspiration into airway: Status: Acute (5) 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 Currently on noninvasive ventilation Status: Acute (9) Dysphagia: Status: Acute Plan ARDS: Most likely secondary to a combination of aspiration pneumonitis versus pneumonia, possible TRALI post 3 unit blood transfusion, in a patient who is vaping dependent with a history of lung cancer post radiation. CTA negative for PE. Respiratory viral panel/COVID-19/influenza negative. MRSA positive. BAL cultures so far negative. Pneumocystis PCR negative. Stop atovaquone. Continue with vancomycin and Zosyn for now. Keep vancomycin trough level between 10-15. Will do a 7-day course. C/w Levaquin 500 mg daily for 5 days for atypical coverage. C/w methylprednisone to 40 mg IV twice daily for now. Will wean down gradually. DuoNebs every 4 hours, budesonide twice daily. Keep net negative for now. Monitor for contraction alkalosis. Strict input output charting, daily weights. Fluid restriction up to 1500 cc. Decrease IV Lasix 40 mgto daily. Decrease acetazolamide to 250 mg daily for now. Keep oxygen saturation over 88%. Heated high flow for now. BiPAP nightly. Appreciate pulmonology recommendations. Acute blood loss anemia: Post 3 unit blood transfusion. Monitor hemoglobin. IV iron for over 1 g over 5 days. Anxiety: Continue with home dose of Ambifly 5 mg, bupropion 300 mg daily, s ertraline 200 mg daily. Nicotine patch. If needed can add Precedex drip. Avoid benzos including Ativan. History of lung cancer post radiation therapy Hip fracture post-ORIF Hepatitis C Amphetamine abuse Analgesia: Tylenol as needed Glycemic control: Not needed Nutrition: Advance as per swallow evaluation CODE STATUS: Full code. Discussed in detail again with the patient. She would like to continue being full code for now. PUD prophylaxis: Protonix DVT prophylaxis: Lovenox Discharge planning: Given high oxygen requirements patient would most likely need placement to select for further lung rehab. Patient and family is agreeable. Case management alerted. Continue with care at ICU care Plan for day: Acetazolamide to be stopped. Lasix 40 mg oral twice daily. Out of bed to chair. Switch to high flow nasal cannula. Keep saturation of 88%. PT/OT. Continue to finish antibiotic course. Safe discharge planning. Attestations Medical Necessity Statement*: Requires further hospitalization for management of ARDS in setting of recent ORIF, post blood loss acute anemia while safe discharge planning is sought. 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
[2021-11-30] MEDS: vancomycin 1,000 MG in sodium chloride 0.9% 250 ML 250 MG IV (18:33)
--- NOTE | 2021-11-30 19:15 | PC.NURSE ---
Chlorohexadine mouth rinse not done at 1800 due to patient still eating her meal. Jerrod boles informed, will do after pt done eating.
--- NOTE | 2021-11-30 19:16 | PC.NURSE ---
Bedside report complete with JENA Betts.
--- NOTE | 2021-11-30 19:25 | PC.NURSE ---
Shift report: Pt has had a decent day. She has been up in the chair for most of the day. She transfers with walker and 1 assist, toe touch pressure on left leg. She stated the day off on HHF 55Land 55%. She has finished the shift on high flow NC at 12lpm. HEr O2 sats do drop to mid 70 s with exertion, it does take several minutes to recover. She tolerates this better than expected. Left leg leonid remain intact, site does have slight amount of brown drainage with no odor. Diaz removed in am, pt has been to [facility] 4 times to urinate. Loose Bm noted with each time. Many family members in and out attentive and supportive of patient.
[2021-12-01] VITALS (111 sets, daily range): BP systolic 72–167; BP diastolic 36–100; PULSE 76–149; RESP 6–49; TEMP 36.4–36.6; O2SAT 74–100
[2021-12-01] MEDS: morphine 4 mg/mL SDV 1 mL 1 MG IVP (01:38)
[2021-12-01] MEDS: ipratropium-albuterol 3 mL Neb INHALATION ×7 (03:02→23:50)
[2021-12-01] MEDS: morphine 4 mg/mL SDV 1 mL 2 MG IVP (04:31)
--- NOTE | 2021-12-01 04:39 | ECG_ITS ---
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 Measurements Intervals [place] Rate: 146 P: 67 NJ: 142 QRS: 67 QRSD: 128 T: 90 QT: 346 QTc: 541 Interpretive Statements SINUS TACHYCARDIA LATERAL MYOCARDIAL INFARCTION , PROBABLY RECENT [40+ ms Q WAVE AND/OR ST/T ABNORMALITY IN I/aVL/V5/V6] ACUTE TX Compared to ECG 11/16/2021 18:10:32 Myocardial infarct finding now present Sinus rhythm no longer present Sinus arrhythmia no longer present Incomplete right bundle-branch block no longer present Electronically Signed On 12-01-2021 20:44:02 CDT by Shelton Sharma M.D. [email or web address]/[id number] f
[2021-12-01 04:42] LABS: Glucose Point of Care 231 mg/dL (70-110)
[2021-12-01] MEDS: LORazepam 2 mg/mL INJ 1 mL 1 MG IVP ×2 (04:50→07:42)
[2021-12-01 04:51] LABS: Alanine Aminotransferase 13 U/L (0-33); Albumin Level 3.3 g/dL (3.5-5.2); Alkaline Phosphatase 76 IU/L (35-105); Anion Gap 19.1 (5-19); Aspartate Amino Transferase 26 U/L (0-32); Blood Urea Nitrogen 29 mg/dL (6-20); Calcium 8.7 mg/dL (8.5-10.5); Carbon Dioxide 19 mmol/L (22-29); Chloride 101 mmol/L (98-107); Globulin 3.2 g/dL (1.3-4.6); Glomerular Filtration Rate 65.5 mL/min (90-130); Glucose 118 mg/dL (65-115); Osmolality Calculated 289 mOsm/kg (285-295); Potassium 3.1 mmol/L (3.5-5.1); Sodium 136 mmol/L (136-145); Total Bilirubin 0.5 mg/dL (0.15-1.2); Total Protein 6.5 g/dL (6.6-8.7)
--- NOTE | 2021-12-01 04:54 | XR_ITS ---
WS: [id number] Portable AP upright chest, 12/01/2021, 0523 hours. Clinical Data: Post-intubation Comparison: Portable chest, 12/01/2021, 0448 hours. Findings: The endotracheal tube is barely above the jae. The bilateral pulmonary opacities have no t changed. Resuscitation paddles, monitor leads and recording devices overlie the chest. XR/XR chest 1V portable [id number] Impression: Endotracheal tube is 1 cm above the jae.
--- NOTE | 2021-12-01 04:57 | XR_ITS ---
WS: [id number] Portable AP semiupright chest, 12/01/2021, 0448 hours Clinical Data: POST CODE BLUE WITH SHOCK. SPO2 OF 78% Comparison: Portable chest, 11/29/2021. Findings: The diffuse bilateral pulmonary opacities have increased and may represent worsening pulmon hilario edema or severe pneumonia. The heart is normal. No pneumothorax is seen. Monitor leads are on the chest wall. There is a recording device and resuscitation paddles on the chest. There is an anterior cervical disc fusion. XR/XR chest 1V portable [id number] Impression: Worsening of bilateral pulmonary opacities.
[2021-12-01 04:59] LABS: INR 1.52 (0.8-1.2)
[2021-12-01 05:00] LABS: Partial Thromboplastin Time 28.2 SECONDS (23.9-36.7)
[2021-12-01 05:03] LABS: Basophils # 0.1 10^3/uL (0.0-0.1); Basophils % 0.2 %; Eosinophils # 0.4 10^3/uL (0.0-0.8); Eosinophils % 1.7 %; Hematocrit 31.5 % (37.0-47.0); Hemoglobin 9.9 g/dL (11.5-15.3); Lymphocytes # 0.9 10^3/uL (0.8-4.8); Lymphocytes % 4.6 %; Mean Corpuscular HGB Conc 31.4 g/dL (30.0-36.0); Mean Corpuscular Hemoglobin 28.9 pg (28.0-34.0); Mean Corpuscular Volume 92.1 fl (81-99); Mean Platelet Volume 12.4 fL (7.4-10.4); Monocytes # 0.6 10^3/uL (0.2-0.9); Monocytes % 2.9 %; Neutrophils # 17.49 10^3/uL (1.8-7.7); Neutrophils % 86.9 %; Nucleated Red Blood Cells % 0 %; Platelet Count 82 10^3/cmm (130-400); Red Blood Count 3.42 10^6/uL (4.1-5.3); Red Cell Distribution Width 15.4 % (12.1-15.1); White Blood Count 20.2 10^3/uL (4.0-10.0)
[2021-12-01 05:07] LABS: Magnesium 1.7 mg/dL (1.7-2.3); Phosphorus 2.8 mg/dL (2.5-4.5)
--- NOTE | 2021-12-01 05:07 | XACV_ITS ---
Exam Room: 2 Ht: 163 cm Wt: 58 kg BSA: 1.62 m2 Gender: Female : 1970 Any Known Allergies: Other Exam Priority: Routine Procedure(s): Procedure Description: Diagnostic procedure Procedure Description: PCI procedure Procedure Description: Drug Eluting Coronary Stent Procedure Description: PTCA Procedure Description: Miscellaneous Procedure Description: ACT Procedure Description: Coronary Angiography Diagnostic Cath Status: Emergency Diagnostic Findings * RCA is a small sized vessel. Mid Right Coronary Artery: subtotal occlusion, CAROL:1 flow. Receives collaterals from the left system. * INDICATION: Patient had presented with hip fracture s/p ORIF. She was being treated for pneumonia. Earlier this morning she went into polymorphic ventricular tachycardia and underwent successful cardioversion back to normal rhythm. Post EKG showed dynamic lateral lead ST changes and borderline ST elevation. Patient was emergently brought to the cardiac Hand Packer after intubation as her respiratory status was worsening. * Left Anterior Descending has no significant disease. * Proximal Circumflex: total thrombotic occlusion, CAROL: 0 flow. * Left Main has no disease. * Coronary angiography shows co-dominance. PCI Status: Emergency PCI Indication: Other Interventional Findings * Procedure detail: We engaged left main artery with XB 3.5 guide catheter. IV heparin was administered to maintain ACT above 250 S. 0.014 run-through guidewire was used to cross totally occluded left circumflex artery and was put in distal vessel. Balloon angioplasty was performed with 2.5 x 12 mm semicompliant balloon. We then directed our wire into the large OM vessel. A 3.0 x 38 mm resolute Harriet drug-eluting stent was used to perform PCI from proximal circumflex artery into large OM branch. At this time final angiogram was performed that showed excellent stent expansion, no residual stenosis and CAROL-3 flow. Guidewire and guide catheter were removed.. * Proximal Circumflex: 100% stenosis treated with a AB TREK 2.50X12 RX BALLOON, and MDT R HARRIET 3.0X38 JOAQUIN. 0% residual stenosis, CAROL: 3 flow. Conclusions 1. Total thrombotic occlusion of large sized proximal left circumflex artery status post successful revascularization with drug-eluting stent x1. 2. Subtotal occlusion of a small sized RCA with collateral supply from left system. 3. Proximal Circumflex was treated with a Balloon, and Drug Eluting Stent. Recommendations * Aspirin and Plavix for at least 1 year. * As patient was not preloaded with DAPT and is currently intubated, we will start Aggrastat for 6 hours. Urgent NG tube placement and loading with aspirin and Plavix. * High intensity statin therapy. * Order echocardiogram. Interventional RX Recommendation: PCI w/o planned CABG Diagnostic RX Recommendation: PCI w/o planned CABG Anticoagulation: Heparin Pressures Phase:Rest AO : 57 / 40 ( 49 ) @ 6:52:00 AM 56 / 42 ( 42 ) @ 6:55:00 AM Clinical Evaluation EBL: 5mL-10mL Procedural Details Pre-Procedure Time Out. Identified patient by full name and date of as verbalized by the patient/guarantor. Does the consent match the physician's order: N/A Emergent; Informed Consent not obtained due to time critical life threat. Accurate & Complete Informed Consent: N/A Emergent; Informed Consent not obtained due to time critical life threat. Inpatient/Outpatient History & Physical on Chart: N/A Emergent; Informed Consent not obtained due to time critical life threat. If H&P is completed, is and addenduem needed: N/A Emergent; Informed Consent not obtained due to time critical life threat; If yes, is the addendum complete: N/A Emergent; Informed Consent not obtained due to time critical life threat. Visualize and Verify Site with Patient/Guarantor: N/A. Relevant Radiology Images available: N/A Emergent; Informed Consent not obtained due to time critical life threat. Pre-op teaching completed and patient verbalized understanding. The risks, benefits, and alternatives of sedation and/or procedure were discussed by physician. The patient agrees to continue. Procedure started. Patient arrived to laboratory worker on a ventilator and will be managed by respiratiory. A 16Fr hill catheter was inserted without resistance maintaining sterile technique. Bag to gravity with clear urine returning. A 16Fr hill catheter was in place on arrival. Bag to gravity with clear urine returning. [facility] Clinical Fraility Score: 5: Mildly Frail. Hand Packer Indications: Resuscitated Cardaic Arrest from [facility]. Chest Pain Symptom Assessment: Asymptomatic. Cardiovascular Instability: Yes, if yes, Persistant Ischemic Symptoms. PERRLA. Strong, equal hand baseboard heating installer bilaterally prior to Propofol infusion. Lungs clear x 5 lobes. IV Site on Arrival: Portacath to right upper chest. Existing PIV to right bicep infiltrated on Cath labs arrival to ICU. IV Fluids: 0.9% NaCl at KVO. 800 mL infused prior to laboratory worker. bilateral groins was prepped with chloroprep then draped in the usual sterile fashion. Physician notified. Baseline sample Acquired. HR: 120 BPM. Patient's family notified and on their way to the hospital. Physician arrived. Physician scrubbed in. Immediate Pre-Procedure Time Out. Correct Patient: N/A Emergent; Correct Procedure: N/A Emergent; Correct Site: N/A Emergent; Correct Patient Position: N/A Emergent; Correct Supplies: N/A Emergent; Dried Flammable Prep: N/A Emergent; Blood Products Available: N/A Emergent;. Lidocaine 1% infiltrated to the right groin. Arterial access obtained. A 5 eritrean JL4 catheter in over wire. Multiple views taken of left coronary artery. Catheter out. A 5 eritrean JR4 catheter in over wire. Multiple views taken of right coronary artery. Catheter out. 6 eritrean XB 3.5 guide catheter was inserted over the wire. Diprivan drip managed by Yamilex RN (PULPWOOD CUTTER). Runthrough guidewire was advanced through the guide catheter to lesion in the mid Circ. Inflation number : 1 A AB TREK 2.50X12 RX BALLOON was prepped and advanced across the Prox CX , then inflated to 12 JACQUELIN for 0:19 seconds. Inflation number: 3 The AB TREK 2.50X12 RX BALLOON was reinflated across the Prox CX, to 12 JACQUELIN for 0:04 seconds. Results checked. Balloon out. Runthrough wire redirected to the OM. Inflation Number : 1 Maximiliano Velazquez HARRIET 3.0X38 JOAQUIN -Lot Number# [id number] was prepped and advanced across the Prox CX. The stent was deployed at 12 JACQUELIN for 0:22 seconds. Exp.2024-07-20. Stent balloon out over wire. Wire out. Results checked. A Right femoral angiogram was performed to determine safe placement of closure device. ACT drawn. Results 246 seconds. Therapeutic limits - pre-heparin administration 90-150 seconds and monitoring heparin during a vascular procedure >250 seconds. A Suture was successful obtaining hemostatsis at the Right Femoral artery insertion site. Guide catheter out. Sheath(s) sutured into position with 2-0 silk and sterile 4x4's and Op-site applied over the site. No oozing or signs and symptoms of hematoma noted. Arterial sheath flushed and connected to tranducer and pressure bag with heparinized saline. Post-op diagnosis: Total occlusion of the left CX s/p PCI. Complications: noone. Estimated blood loss: 5mL-10mL. Responsiveness - PERRLA, intubated and sedated, responds to pain at this time. Airway - Intubated on arrival to laboratory worker, RT managing. Circulation: W/N/L, pulses unchanged. Nausea/Vomiting: No. Procedure completed. Patient transferred by bed to ICU. Vital chart was stopped. Access Site Site: Right Femoral artery Sheath Size: 6 Fr Hemostasis Method: Suture Hemostasis Success: Successful Procedure Medications Start: 5:39 AM Stop: 5:39 AM Medication: Levophed (norepinephrine) Amount: 4 mcg/min Route: I.V. drip Start: 5:49 AM Stop: 5:49 AM Medication: Versed Amount: 2 mg Route: I.V. Start: 5:52 AM Stop: 5:52 AM Medication: Levophed (norepinephrine) Amount: 8 mcg/min Route: I.V. drip Start: 5:53 AM Stop: 5:53 AM Medication: Heparin Amount: 4000 units Route: I.V. Start: 6:05 AM Stop: 6:05 AM Medication: Heparin Amount: 2000 units Route: I.V. Start: 6:09 AM Stop: 6:09 AM Medication: Aggrastat 12.5 mg/250 mL Amount: 29 ml Route: I.V. bolus Start: 6:09 AM Stop: 6:09 AM Medication: Aggrastat 12.5 mg/250 mL Amount: 10.4 ml/hr Route: I.V. drip Start: 6:17 AM Stop: 6:17 AM Medication: Levophed (norepinephrine) Amount: 10 mcg/min Route: I.VArcelia aldana I, the attending physician, have reviewed and verified all procedure medications. Yes, all medications given per verbal order Report Signatures Finalized by Shelton Sharma MD on 12/03/2021 10:27 PM
[2021-12-01 05:09] LABS: D Dimer 14.13 ug/mIFEU (0-0.59)
[2021-12-01 05:14] LABS: Procalcitonin 0.48 ng/mL (0-0.5); Troponin(5th) Baseline 340 ng/L (0-10)
[2021-12-01] MEDS: succinylcholine 20 mg/mL SDV 10mL IVP (05:15)
--- NOTE | 2021-12-01 05:19 | P.PNCC_ITS ---
Critical Care Event Note The high probability of a clinically significant, sudden or life threatening deterioration of the patient's cardiopulmonary system(s) required my full and direct attention, intervention and personal management. The critical care time is as shown. This time is in addition to time spent performing any reported proc edures but includes the following: [x] Data and vital sign review and interpretation [x] Patient assessment, examination and intervention [x] Documentation [x] Medication orders and management CODE BLUE was initiated by nursing staff due to patient going into torsades and being unresponsive. She received 1 shock with return to sinus tachycardia. Short time later patient aroused. She was quite scared and anxious. Prior to this event, patient had sinus rhythm on telemetry monitoring. She went from sinus rhythm directly into torsades. Length of torsade was approximately 1 minute and 30 seconds before conversion to sinus tachycardia. The patient had been asleep this evening. Nursing staff had drawn blood work just prior to this event, arousing the patient. She was acting normal and appropriate. She was on 55 L flow with 60% FiO2, sats were satble for her. Blood pressure and heart rate were consistent with recent baseline. While nurse was in the room, patient suddenly said I feel dizzy and then proceeded to torsade and being unresponsive. She did not have discernible loss of pulse identified, possibly because of rapidity with which defibrillation occurred. Chest compressions were not required. She did require bag mask ventilation. Patient received magnesium. Twelve-lead EKG showed sinus tachycardia at 146 bpm with what appeared to be ST segment elevation in I and AVL. EKG was sent to Dr. Sharma'josephine along with a prior EKG for comparison. Decision was made to proceed emergently to cardiac cath. Patient received aspirin, Plavix load and heparin bolus. ABG was done. Reviewed with patient acute events and concern regarding EKG. She was quite tachypneic and tachycardic having a difficult time recovering from a pulmonary standpoint after the acute event. I gave her morphine and Ativan without much improvement. Patient was agreeable to consideration for repeat intubation if necessary. Once decision was made regarding cardiac catheterization emergently, it was felt that patient would require intubation to successfully be able to undergo this procedure. She gave verbal consent in front of myself and nursing staff in the room for intubation, cardiac catheterization with evaluation of coronary arteries and other necessary procedures such as lines to assist in management of her care and replacement of hill catheter. CODE STATUS was reconfirmed with her and she does desire to be Full code. She understands that if she had not had her heart defibrillated this evening she would have likely tonight. Risks of procedure including bleeding, infection, vascular damage and further compromise of pulmonary status were quickly reviewed. Again patient expressed desire to proceed and understanding that this was an acute event. Mrs. Melton denies having any chest pain this evening. Nursing does not report any complaints of such. She has not had increased complaints of shortness of breath no report of any pleuritic type symptoms overnight. No vomiting. She had not taken anything by mouth immediately prior to this episode. Patient tachypneic with respiratory rate 30s to 40s prior to intubation. Tachycardic with heart rate 130s to 140s prior to intubation. Saturations were around 86 to 90% prior to [facility] Dr[facility] by [facility]. Post intubation respiratory rate heart rate around 100. Blood pressure was maintained. She did have drop in saturations temporarily which is not unexpected but saturations were back around 90%. Nursing staff contacted patient's mother to notify her of acute events. She is on her way in. Will be about an hour before she is here.. Also noted was her platelets are low. My primary concern initially had been for that of PE, and if no abnormalities on cardiac catheterization will likely need to proceed to repeat CTA to rule this out. Laboratory studies reviewed, potassium was noted to be low. Extra potassium was given IV. Critical Care Time Code activated: Yes Critical Care Time (min): 75 Coding Level of Care Code Acute Dielectric Press Operator for Gautam Espinal
[2021-12-01] MEDS: propofol 1,000 MG/100 ML INJ 1.74 MG IV (05:20)
--- NOTE | 2021-12-01 05:26 | PC.NURSE ---
Mother called and updated on patient current condition and new treatment plan by this RN. Also discussed need for patient to be taken to seed laboratory assistant this AM and current O2 requirements/intubation procedure. Mother on her way to hospital at this time.
--- NOTE | 2021-12-01 05:32 | P.CONIM_ITS ---
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 She underwent ORIF. Following that she developed aspiration pneumonia and being treated for that. Worsening respiratory status recently. Patient had polymorphic VT earlier this morning. She was shocked back to normal sinus rhythm. Subsequently was intubated secondary to respiratory distress. Follow- up EKG showed ST elevation in lateral leads and Tamping Machine Operator was activated. Patient was brought emergently to cardiac Tamping Machine Operator and was found to have total thrombo tic occlusion of proximal left circumflex artery that was treated with a JOAQUIN x1. She is requiring Levophed. Review of Systems General: Reports: ROS unobtainable due to endotracheal tube Medications/Allergies Home Medications Medication Instructions Recorded Confirmed Last Taken Type aspirin 81 mg tablet,delayed 81 mg PO DAILY 10/27/19 11/16/21 11/16/21 History release (Adult Aspirin Regimen) albuterol sulfate 90 mcg/actuation 2 puff INHALATION QID PRN 30 Days 09/25/21 11/16/21 Unknown Rx aerosol inhaler #8.5 g aripiprazole 5 mg tablet (Abilify) 5 mg PO DAILY #90 tab 09/26/21 11/16/21 11/16/21 Rx bupropion HCl 300 mg 24 hr tablet, 300 mg PO QAM #90 tab 09/26/21 11/16/21 11/16/21 Rx extended release (Wellbutrin XL) sertraline 100 mg tablet (Zoloft) 200 mg PO DAILY #180 tab 09/26/21 11/16/21 11/16/21 Rx glycopyrrolate 9 mcg-formoterol 2 puff INHALATION BID 100 Days 09/29/21 11/16/21 11/16/21 Rx 4.8 mcg HFA aerosol inhaler #10.7 g (Bevespi Aerosphere) hydrocodone 7.5 mg-acetaminophen 1 tab PO Q4H PRN 7 Days #30 tab 11/17/21 Unknown Rx 325 mg tablet Allergies Allergy/AdvReac Type Severity Reaction Status Date / Time sulfamethoxazole Allergy Unknown Verified 10/04/21 10:55 [From Bactrim] trimethoprim [From Bactrim] Allergy Unknown Verified 10/04/21 10:55 Current Medications Generic Name Dose Route Start Last Admin Trade Name Freq PRN Reason Stop Dose Admin Albuterol/Ipratropium 3 ml 11/22/21 12:00 12/01/21 03:02 Ipratropium-Albuterol 3 Ml Neb INHALATION 3 ml Q4H.RESPIRATORY ABBY Administration Aripiprazole 5 mg 11/18/21 09:00 11/30/21 08:54 Aripiprazole 10 Mg Tablet PO 5 mg DAILY ABBY Administration Budesonide 0.5 mg 11/27/21 10:00 11/30/21 20:32 Budesonide 0.5 Mg/2 Ml Neb INHALATION 0.5 mg BID.RESPIRATORY ABBY Administration Bupropion HCl 300 mg 11/18/21 06:00 11/30/21 06:07 Bupropion Xl (24 Hr) 300 Mg Tablet PO 300 mg QAM ABBY Administration Chlorhexidine Gluconate 15 ml 11/22/21 18:00 11/30/21 21:04 Chlorhexidine Gluconate 0.12% Btl 473 Ml MUCOUS MEM 15 ml BID ABBY Administration Docusate Sodium 100 mg 11/17/21 09:00 11/30/21 16:50 Docusate Sodium 100 Mg Capsule PO Not Given BID ABBY Enoxaparin Sodium 40 mg 11/21/21 14:00 11/30/21 15:16 Enoxaparin 40 Mg/0.4 Ml Syringe SUBCUT 40 mg Q24H ABBY Administration Furosemide 40 mg 11/30/21 09:35 11/30/21 15:16 Furosemide 40 Mg Tablet PO 40 mg BID@08,16 ABBY Administration Vancomycin HCl 1,000 mg/ 250 mls @ 250 mls/hr 11/24/21 19:00 11/30/21 19:35 Sodium Chloride IV 12/01/21 18:59 Infused Q24H ABBY Infusion Iron Sucrose 200 mg/ Sodium 110 mls @ 220 mls/hr 11/27/21 10:00 11/30/21 09:48 Chloride IV 12/01/21 10:29 220 mls/hr Q24H ABBY Administration dexmedeTOMIDine 0.9 % NaCL 400 mcg in 100 mls @ 0 mls/hr 11/27/21 19:45 11/29/21 15:30 Precedex IV 0 mcg/kg/hr .Q0M ABBY 0 mls/hr Titration Protocol Per Protocol Levofloxacin 500 mg 11/27/21 08:40 11/30/21 06:07 Levofloxacin 500 Mg Tablet PO 12/02/21 08:39 500 mg DAILY@0600 ABBY Administration Protocol Methylprednisolone Sodium Succinate 40 mg 11/30/21 09:00 11/30/21 09:51 Methylprednisolone Sod Succ 40 Mg/Ml Inj IVP 40 mg DAILY ABBY Administration Midodrine 5 mg 11/19/21 06:30 11/30/21 21:03 Midodrine 5 Mg Tablet PO 5 mg Q8H ABBY Administration Morphine Sulfate 1 mg 11/24/21 18:58 12/01/21 01:38 Morphine 4 Mg/Ml Sdv 1 Ml IVP 1 mg Q4H PRN Administration SEVERE PAIN Pantoprazole Sodium 40 mg 11/19/21 06:30 11/30/21 21:03 Pantoprazole 40 Mg Sdv IVP 40 mg Q12H ABBY Administration Potassium Chloride 40 meq 11/30/21 09:35 11/30/21 09:51 Potassium Chloride Er 20 Meq Tablet PO 40 meq DAILY ABBY Administration Sertraline HCl 200 mg 11/18/21 09:00 11/30/21 09:50 Sertraline 100 Mg Tablet PO 200 mg DAILY ABBY Administration Sucralfate 1 gm 11/19/21 07:00 11/30/21 17:46 Sucralfate 1 Gm Tablet PO 1 gm BIDAC ABBY Administration Temazepam 15 mg 11/29/21 15:12 11/29/21 21:34 Temazepam 15 Mg Capsule PO 15 mg BEDTIME PRN Administration INSOMNIA PFSH Acute PFSH: Medical History Cannabis dependence, in remission Depression with anxiety Hepatitis C History of lung cancer Lung cancer Other stimulant dependence, in remission Psychiatric care Restless legs syndrome Social History Smoking and tobacco status: former smoker Quit status (tobacco): has quit using tobacco Year quit tobacco: 2019 - 1PPD x 25 Years Smoking risk assessment/counseling performed?: No Alcohol intake: never Desire information about alcohol rehabilitation?: No Counseling given: No Desire information about substance/drug rehabilitation?: No Counseling given: No Lives independently: Yes Household members: none Marital status: Unknown Current occupational status: disabled History of recent travel: No Current gender identity: Female Vitals/I&O/Wt Last Vital Signs Temp 98.4 F 11/30/21 20:00 Pulse 95 12/01/21 03:08 Resp 18 12/01/21 03:05 BP 88/48 12/01/21 02:00 Pulse Ox 92 12/01/21 03:05 11/30/21 11/30/21 12/01/21 14:59 22:59 06:59 Intake Total 400 / 400 350 / 750 Output Total 400 / 400 400 / 800 Balance 0 / 0 -50 / -50 Weight last 48 hrs Weight 127 lb 12.8 oz Physical Exam Narrative: GENERAL: Patient is intubated and sedated HEART: Tachycardic LUNGS: Decreased breath sounds ABDOMEN: Soft CENTRAL NERVOUS SYSTEM: Grossly nonfocal. [] EXTREMITIES: Lower extremities with 1+ edema bilaterally. Urinary Catheter Management: Diaz: Cath Placed During This Visit: yes, but has since been removed by the nurse Reason for Continuing Indwelling Catheter: Decision to DC Catheter Urinary Catheter Date of Insertion: 11/26/21 Urinary Catheter Time of Insertion: 20:00 Date Urinary Catheter Removed: 11/30/21 Time Urinary Catheter Discontinued: 10:00 Data : 12/01/21 09:27 12/01/21 09:27 A&P Assessment and plan (1) Torsades de pointes: Status: Acute (2) Septic shock: Status: Acute (3) Acute ST segment elevation [place]: Status: Acute (4) ARDS (adult respiratory distress syndrome): Status: Acute (5) COPD (chronic obstructive pulmonary disease): Status: Acute (6) Hepatitis C: Status: Acute Qualifiers: Viral hepatitis chronicity: chronic Hepatic coma status: without hepatic coma Qualified Code(s): B18.2 - Chronic viral hepatitis C Plan Patient had polymorphic ventricular tachycardia earlier this morning and was shocked back to normal sinus rhythm. Duration of VT was brief. Subsequently she was intubated. ST elevations were noted on EKG in lateral leads. Cardiac Tamping Machine Operator was emergently activated. Dr. Polk obtained consent prior to intubation from the patient and her mother was also called prior to the procedure. Patient underwent successful revascularization of total thrombotic occlusion of left circumflex artery with JOAQUIN x1. She was put on Aggrastat drip. Start aspirin and Plavix. Continue Aggrastat for 6 hours. Order limited echocardiogram with contrast CBC in 4 hours to assess platelet count Prognosis is guarded. Thank you for involving us with care of this patient. We will continue to follow. Please call with questions. Consult Attestations Medical Necessity Statement: Care expected to cross 2 midnights Coding Level of Care Code Acute Supervisor Contact And Service Clerks for [facility] Fwd Diagnoses Torsades de pointes I47.2 Septic shock A41.9; R65.[address] segment elevation [place] I21.3 ARDS (adult respiratory distress syndrome) J80 COPD (chronic obstructive pulmonary disease) J44.9 Hepatitis C B18.2 Viral hepatitis chronicity: chronic Hepatic coma status: without hepatic coma
--- NOTE | 2021-12-01 05:33 | P.HPUD_ITS ---
Surgery/Procedure H&P Update DATE OF PROCEDURE: December 01, 2021 DATE H&P PERFORMED: 11/16/21 H&P UPDATE INFORMATION: I have reviewed H&P completed within last 30 days, I have examined patient prior to procedure and Changes to prior documentation as noted here CHANGES TO PREVIOUS DOCUMENTATION: Patient had presented with hip fracture s/p ORIF. She was being treated for pneumonia. Earlier this morning she went into polymorphic ventricular tachycardia and underwent successful shocking back to normal rhythm. Post EKG showed dynamic lateral lead ST changes. Patient was emergently brought to the cardiac Social Research Assistant after intubation as her respiratory status was worsening. PREOP DIAGNOSIS: Polymorphic ventricular tachycardia/dynamic EKG changes PRIMARY INDICATION FOR PROCEDURE: Polymorphic ventricular tachycardia/dynamic EKG changes PLANNED PROCEDURE: Left heart catheter possible percutaneous coronary intervention PATIENT REASSESSED PRIOR TO SEDATION, WITH NO CHANGE NOTED: Yes PHYSICAL EXAM: regular rate & rhythm (Tachycardic. Patient is intubated and sedated.) OTHER PERTINENT EXAM FINDINGS: Patient is intubated and sedated AIRWAY EVAL/ANESTHESIA PLAN: ASA III, Local Anesthesia, Risks, benefits & alternatives of sedation and/or procedure discussed and Patient agrees to continue as planned ADDITIONAL INFORMATION: Patient is intubated and sedated.
[2021-12-01 05:35] LABS: Lactic Sepsis W/Reflex 10.7 mmol/L (0.5-2.2)
[2021-12-01] MEDS: potassium chloride premix 40 MEQ/100 ML PREMIX 25 MEQ IV (05:35)
--- NOTE | 2021-12-01 05:35 | P.PNCC_ITS ---
Critical Care Event Note Initially I responded to CODE BLUE announced overhead in the ICU in which patient was found to be post cardiac arrest after successful defibrillation. Dr. Polk at bedside as primary physician and steam pipe fitter. Please see her notes and management for details regarding this event. Later the decision was made to intubate the patient in preparation for Research Environmental Scientist as the patient is in respiratory distress requiring BiPAP with 100% FiO2. Her current respiratory status likely prohibits Research Environmental Scientist without intubation first Her respiratory rate is in the 40s and she is ill appearing with tachycardia, accessory muscle use, and continued hypoxemia despite 100% FiO2. I was requested by Dr. Polk to intubate the patient which I performed as noted below. The patient is critically ill and did desaturate to approximately 60% at lowest prior to recovery secondary to apnea period during intubation which was performed as expeditiously as possible. Visualization of the airway and vocal cords was rapidly achieved and first-pass success with video laryngoscopy. I believe that desaturation was unavoidable due to the patient's critical illness. ET tube positioning reviewed on chest x-ray and subsequently retracted 2 cm as it appears to be at the level of the jae. Please see Dr. Polk, Dr. Sharma, and the day team hospitalist notes for further care of patient. Kodak Keenan MD Emergency Medicine Critical Care Time Code activated: Yes Critical Care Time (min): 35 Additional information about critical care time: Due to a high probability of clinically significant, possibly life threatening deterioration, the patient required my highest level of attention and preparedness to intervene emergently and I personally spent this critical care time directly and personally managing the patient. This critical care time included obtaining a history; examining the patient; pulse oximetry; ordering and review of laboratory and imaging studies; arranging urgent treatment with development of a management plan; evaluation of patient's response to treatment; frequent reassessment; and, discussions with other providers as applicable. It was exclusive of separately billable procedures. Procedures Intubation Time out performed: Yes Sedative: etomidate Mg given: 20 Paralytic: succinylcholine Mg given: 60 Laryngoscope: fiber optic video scope ET tube size: 8 ET tube uncuffed: No Tube secured depth (cm): 22 Tube secured location: lips Tube placement confirmation: visualized tube passing through cords, equal breath sounds bilaterally, no breath sounds over epigastrium and color change noted Intubation complications: hypoxia (see critical care narrative) Additional comments: ET tube retracted 2 cm after review of bedside chest x-ray where tip was at the level of the jae Coding Level of Care Code Acute Drier Operator Helper for Gautam Espinal
[2021-12-01 06:01] LABS: ABG PCO2 27.7 mmHg (35-45); ABG PH Result 7.25 (7.35-7.45); Arterial Blood Gas Hematocrit 34.5 % (37-47); Base Excess ABG -13.9 mmol/L (-2.0-2.0); Blood Gas Allen Test Pos; Blood Gas Sample Site Brachial, right; Blood Gas Sample Type Arterial; Oxygen Device NRB; PO2 ABG 49.1 mmHg (80.0-100.0)
[2021-12-01 06:33] LABS: ABG PCO2 33.4 mmHg (35-45); ABG PH Result 7.29 (7.35-7.45); Arterial Blood Gas Hematocrit 27.7 % (37-47); Base Excess ABG -9.6 mmol/L (-2.0-2.0); Blood Gas Allen Test Pos; Blood Gas Operator Identificat WALCI; Blood Gas Sample Type Arterial; HCO3 ABG 16.1 mmol/L (22-26); Oxygen Device VENT; PO2 ABG 40.4 mmHg (80.0-100.0)
--- NOTE | 2021-12-01 06:37 | XR_ITS ---
WS: [id number] Portable AP supine chest, 12/01/2021, 0647 hours. Clinical Data: Tube placement Comparison: Portable chest, 12/01/2021, 0523 hours. Findings: A left subclavian catheter has been inserted and ends in the superior vena cava. There is a nasogastric tube which appears to end within the stomach. The nasogastric tube is 4 cm above the car carloz. The diffuse bilateral pulmonary opacities remain the same and the heart is not enlarged. No pneu mothorax is seen. There are monitor leads over the chest wall. There is contrast material within the kidneys. XR/XR chest 1V portable [id number] Impression: 1. Satisfactory insertion of left subclavian catheter and nasogastric tube. 2. Satisfactory position of endotracheal tube. 3. No change in bilateral pulmonary opacities.
--- NOTE | 2021-12-01 06:39 | ECG_ITS ---
[facility] Test Date: 2021-12-01 Pat Name: Tracy Melton Department: Room: ICU09 Gender: Female Ceo And President: : 1970 Requested By: Nancy Polk Order Number: [id number] Shara MD: Shelton Sharma M.D. Measurements Intervals [place] Rate: 105 P: -19 MD: 152 QRS: 92 QRSD: 98 T: 150 QT: 356 QTc: 471 Interpretive Statements SINUS TACHYCARDIA POSSIBLE LEFT ATRIAL ENLARGEMENT [-0.1mV P WAVE IN V1/V2] LATERAL MYOCARDIAL INFARCTION , PROBABLY RECENT [40+ ms Q WAVE AND/OR ST/T ABNORMALITY IN I/aVL/V5/V6] ACUTE ID Compared to ECG 11/16/2021 18:10:32 Myocardial infarct finding now present Sinus rhythm no longer present Sinus arrhythmia no longer present Incomplete right bundle-branch block no longer present Electronically Signed On 12-01-2021 20:47:57 CDT by Shelton Sharma M.D. [id number]
--- NOTE | 2021-12-01 06:40 | PC.NURSE ---
#20 IVL started in the left shoulder.
[2021-12-01 06:49] LABS: Reflex Lactate Order REFLEX LACTIC ORDERD
--- NOTE | 2021-12-01 07:05 | PC.NURSE ---
Bedside report completed with Yamilex Plunkett RN
[2021-12-01 07:33] LABS: Chol HDL Ratio 4.34 mg/dL (0.0-4.40); Cholesterol 139 mg/dL (0-200); HDL Cholesterol 32 mg/dL (60-100); LDL Cholesterol Calculated 74 mg/dL (50-129); LDL HDL Ratio 2.31 RATIO (0.00-3.22); Triglycerides 163 mg/dL (0-150)
[2021-12-01 07:39] LABS: Troponin 5 2HR 1027 ng/L (0-10); Troponin 5 2HR Delta 687 ABS# (0-10)
[2021-12-01] MEDS: budesonide 0.5 mg/2 mL Neb INHALATION ×2 (07:56→20:10)
[2021-12-01 08:30] LABS: Lactic Acid level (Lactate) 2.3 mmol/L (0.5-2.2)
--- NOTE | 2021-12-01 08:31 | PC.NURSE ---
0413 At patient's bedside to draw morning labs. Patient stated that she felt dizzy. Rhythm change observed. Pads applied to patient, connected to zoll. Shockable rhythm observed. 0415 Patient shocked at [address] after shock. Doctor called to bedside. 2 gm mag and 1 L of NS ordered and given. Patient being bagged by respiratory. 0435 patient placed on BIPAP. Orders to prepare for intubation per doctor Polk. RSI preformed per protocol. 0500 Patient transfered to grinding and polishing laborer.
[2021-12-01] MEDS: clopidogrel 300 mg Tablet 600 MG PO (09:29)
[2021-12-01] MEDS: aspirin 325 mg Tablet PO (09:29)
[2021-12-01 09:34] LABS: Basophils # 0.1 10^3/uL (0.0-0.1); Basophils % 0.3 %; Eosinophils # 0.2 10^3/uL (0.0-0.8); Eosinophils % 0.5 %; Hematocrit 28.3 % (37.0-47.0); Hemoglobin 9.6 g/dL (11.5-15.3); Lymphocytes # 1.4 10^3/uL (0.8-4.8); Lymphocytes % 4.2 %; Mean Corpuscular HGB Conc 33.9 g/dL (30.0-36.0); Mean Corpuscular Hemoglobin 29.8 pg (28.0-34.0); Mean Corpuscular Volume 87.9 fl (81-99); Mean Platelet Volume 12.3 fL (7.4-10.4); Monocytes # 0.9 10^3/uL (0.2-0.9); Monocytes % 2.7 %; Neutrophils # 27.91 10^3/uL (1.8-7.7); Nucleated Red Blood Cells % 0 %; Platelet Count 166 10^3/cmm (130-400); Red Blood Count 3.22 10^6/uL (4.1-5.3); Red Cell Distribution Width 15.6 % (12.1-15.1)
[2021-12-01] MEDS: propofol 1,000 MG/100 ML INJ 13.91 MG IV ×3 (09:46→22:36)
[2021-12-01] MEDS: pantoprazole 40 mg SDV IVP ×2 (09:50→22:35)
[2021-12-01] MEDS: chlorhexidine gluconate 0.12% Btl 473 mL 15 ML MUCOUS MEM ×2 (09:51→18:35)
[2021-12-01] MEDS: sucralfate 1 gm Tablet PO (09:51)
[2021-12-01] MEDS: buPROPion XL (24 HR) 300 mg Tablet PO (09:51)
[2021-12-01] MEDS: midodrine 5 mg TABLET PO (09:51)
[2021-12-01] MEDS: levoFLOXacin 500 mg Tablet PO (09:51)
[2021-12-01 09:53] LABS: Alanine Aminotransferase 23 U/L (0-33); Albumin Level 3.1 g/dL (3.5-5.2); Alkaline Phosphatase 78 IU/L (35-105); Anion Gap 18.8 (5-19); Aspartate Amino Transferase 107 U/L (0-32); Blood Urea Nitrogen 30 mg/dL (6-20); Calcium 8.2 mg/dL (8.5-10.5); Carbon Dioxide 19 mmol/L (22-29); Chloride 102 mmol/L (98-107); Globulin 2.8 g/dL (1.3-4.6); Glucose 145 mg/dL (65-115); Magnesium 2.6 mg/dL (1.7-2.3); Osmolality Calculated 291 mOsm/kg (285-295); Phosphorus 2.8 mg/dL (2.5-4.5); Potassium 3.8 mmol/L (3.5-5.1); Sodium 136 mmol/L (136-145); Total Bilirubin 0.4 mg/dL (0.15-1.2); Total Protein 5.9 g/dL (6.6-8.7)
[2021-12-01] MEDS: sertraline 100 mg Tablet 200 MG PO (09:53)
[2021-12-01] MEDS: sodium chloride 0.9% 250 ML IV (10:05)
[2021-12-01 10:08] LABS: ABG PCO2 26.4 mmHg (35-45); ABG PH Result 7.32 (7.35-7.45); Alveolar-Arterial Oxygen Gradi 76.6 mmHg (5-10); Arterial Blood Gas Hematocrit 24.3 % (37-47); Base Excess ABG -11.5 mmol/L (-2.0-2.0); Blood Gas Operator Identificat CAK; Blood Gas Sample Site ARTLINE; Blood Gas Sample Type Arterial; Carboxyhemoglobin 1.1 %THgb (0.4-20.1); HCO3 ABG 13.5 mmol/L (22-26); HGB O2 Sat 95.5 % (95-100); Ionized Calcium Level - ABG 0.9 mmol/L (1.1-1.4); Methemoglobin 0.7 % (0.4-1.5); Oxygen Device VENT; Oxygen Saturation ABG 97.2; PO2 ABG 89.6 mmHg (80.0-100.0); Potassium Level - ABG 2.4 mmol/L (3.5-5.0); Total Hemoglobin 7.9 g/dL (12-16)
--- NOTE | 2021-12-01 10:39 | ECG_ITS ---
[facility] Test Date: 2021-12-01 Pat Name: Tracy Melton Department: Room: ICU09 Gender: Female Manager [address]: : 1970 Requested By: Nancy Polk Order Number: [id number] Shara MD: Shelton Sharma M.D. Measurements Intervals [place] Rate: 98 P: 31 UT: 143 QRS: -9 QRSD: 79 T: -4 QT: 368 QTc: 471 Interpretive Statements SINUS RHYTHM WITH OCCASIONAL VENTRICULAR PREMATURE COMPLEXES MODERATE ST DEPRESSION [0.05+ mV ST DEPRESSION] Compared to ECG 12/01/2021 06:33:49 Ventricular premature complex(es) now present ST (T wave) deviation now present Sinus tachycardia no longer present Myocardial infarct finding no longer present Electronically Signed On 12-01-2021 20:46:28 CDT by Shelton Sharma M.D. [id number]
[2021-12-01 10:41] LABS: White Blood Count 32.1 10^3/uL (4.0-10.0)
[2021-12-01 10:42] LABS: Slide Review Slide Review Perform
[2021-12-01 10:43] LABS: Troponin 5 6HR 3168 ng/L (0-10); Troponin 5 6HR Delta 2828 ng/L (0-12)
[2021-12-01 10:52] LABS: INR 1.43 (0.8-1.2)
--- NOTE | 2021-12-01 11:27 | P.PN_ITS ---
Subjective Subjective: The patient was seen and examined this morning. Earlier this morning, the patient had suffered from torsade and was defibrillated. Following that, the patient was found to have ST elevated AZ. S he underwent cardiac catheterization. Drug-eluting stent was inserted in the left circumflex coronary artery. The patient had a lactic acid level of 10 earlier this morning. Currently the patient is intubated and sedated. Chest x-ray revealed bilateral infiltrates consistent with ARDS. Patient has severe ARDS with a PF ratio of 90. Bedside ultrasound revealed bilateral B-lines. The TAPSE was good. No evidence of RV dysfunction. There was reduced movement in the lateral wall of the left ventricle. The IVC was not dilated. The E/E prime ratio of the lateral wall was 7. The patient is broadly covered with antibiotic. She is on aspirin, Plavix and tirofiban. Medications: Reviewed: Yes Vitals/I&O/Wt Last Vital Signs Temp 98.4 F 11/30/21 20:00 Pulse 98 12/01/21 07:00 Resp 31 H 12/01/21 10:13 BP 104/67 12/01/21 07:00 Pulse Ox 97 12/01/21 10:13 11/30/21 12/01/21 12/01/21 22:59 06:59 14:59 Intake Total 350 / 860 409.052 / 409.052 Output Total 400 / 800 Balance -50 / 60 409.052 / 409.052 Weight last 48 hrs Weight 126 lb 7 oz Weight 127 lb 12.8 oz Physical Exam Narrative: General: Patient is intubated and sedated Neck: Unable to assess JVD as the patient is supine Respiratory: Auscultation: Coarse crackles bilaterally, no wheezing but occasional rhonchi Cardiovascular: Regular rate and rhythm, tachycardia, S1-S2 present, no murmur, no peripheral edema. Abdomen: Soft, nondistended, positive bowel soundorganomegaly. Musculoskeletal: No obvious joint deformity Skin: Incision site in the left lower extremity appears to be clean, no signs of infection Neuro: The patient is sedated, unable to assess Urinary Catheter Management: Diaz: Cath Placed During This Visit: yes, but has since been removed by the nurse Reason for Continuing Indwelling Catheter: Accurate Measurement of Urinary Output in Critically Ill Patients Urinary Catheter Date of Insertion: 11/26/21 Urinary Catheter Time of Insertion: 20:00 Date Urinary Catheter Removed: 11/30/21 Time Urinary Catheter Discontinued: 10:00 Data : 12/01/21 09:27 12/01/21 09:27 Other data: I have reviewed the patient's laboratory, microbiologic and radiologic data. A&P Assessment and plan (1) ARDS (adult respiratory distress syndrome): The patient has developed ARDS. This is likely secondary to aspiration event, septic shock, severe hemodynamic abnormalities prompting a lactic acid level of 10. Bedside ultrasound revealed bilateral B-lines. For now, we will continue with low tidal volume ventilation. The patient is currently sedated with propofol and fentanyl. I expect the hypoxemia to get better in the next 24 hours. Will start diuresis at least to keep her even if not negative. The electrolytes will be repleted. There is no evidence of pulmonary embolism based on the bedside echocardiogram. The hemoglobin is stable and platelet has improved. The patient can be started on DVT prophylaxis. Status: Acute (2) Acute ST segment elevation AZ: The patient had suffered from acute ST elevated AZ with occlusion of the left circumflex coronary artery. The patient received a drug-eluting stent earlier this morning. She had suffered from torsades prior to the detection of the acute ST elevated AZ. Bedside echocardiogram did not reveal any evidence of cardiogenic shock. The patient is currently on dual antiplatelet therapy with aspirin and Plavix and also receiving tirofiban. Status: Acute (3) Septic shock: The patient is currently requiring Levophed. The etiology of the septic shock is likely pneumonia. The patient is currently on vancomycin and Levaquin. We will add anaerobic co verage as there is high risk for translocation of intestinal bacteria. Unwilling to obtain repeat lactic acid level. She is on stress dose hydrocortisone. Status: Acute (4) History of lung cancer: The patient has history of lung cancer. No recent evidence of progression of disease. She has radiation-induced changes in the left upper lobe. Recent chest x-ray in September 2021 did not reveal any abnormalities other than emphysema. The patient is currently on Pulmicort and DuoNeb. 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 No evidence of wound infection. Overall, her prognosis is poor given multiple comorbidities. Status: Acute Qualifiers: Fracture morphology: oblique Fracture alignment: displaced Qualified Code(s): S72.332K - Displaced oblique fracture of shaft of left femur, subsequent encounter for closed fracture with nonunion Attestations Medical Necessity Statement*: Will defer to the primary team. 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
--- NOTE | 2021-12-01 11:50 | PC.SOCIAL ---
IMM Update pg 2 of IMM not updated. Patient is intubated and not anticipated to DC in the next 24 hours.
[2021-12-01 12:03] LABS: D Dimer 15.78 ug/mIFEU (0-0.59); Fibrinogen 337 mg/dL (174-498)
[2021-12-01 12:04] LABS: INR 1.43 (0.8-1.2)
[2021-12-01] MEDS: FUROsemide 10 mg/mL SDV 4mL 40 MG IVP ×2 (12:09→22:34)
[2021-12-01] MEDS: potassium chloride oral liq 20 mEq/15 mL UDC 40 MEQ PO (12:09)
[2021-12-01 12:21] LABS: Lactate (Lactic Acid level) 1.7 mmol/L (0.5-2.2)
[2021-12-01] MEDS: norepinephrine 8 MG in dextrose 5 % 500 ML 30.48 MG IV (13:07)
[2021-12-01] MEDS: piperacillin-tazobactam 3.375 GM in sodium chloride 0.9% (plus) 50 ML IV ×2 (13:53→20:50)
--- NOTE | 2021-12-01 14:23 | PC.OT ---
OT tx attempted this date. Pt re-intubated, therefore on hold this date. Will attempt tomorrow.
--- NOTE | 2021-12-01 14:30 | PC.NURSE ---
Right groin sheath removed intact. Pressure held until hemostatis obtained. No hematomas noted. Bruised noted at site. Gauze and bioclusive dressing applied.
[2021-12-01] MEDS: hydrocortisone 100 mg/2 mL SDV 50 MG IVP ×2 (15:55→22:34)
--- NOTE | 2021-12-01 16:48 | PM.PN ---
Subjective Subjective: Yesterday patient's oxygen supplementation was turned down. She was turned down to up to 12 L of high flow nasal cannula at rest. Overnight she was placed on BiPAP. Earlier today morning, the patient had suffered from torsade and was defibrillated. Following that, the patient was found to have ST elevated ND. She underwent cardiac catheterization. Drug-eluting stent was inserted in the left circumflex coronary artery. The patient had a lactic acid level of 10 earlier this morning. On my examination, currently the patient is intubated and sedated. Chest x-ray revealed bilateral infiltrates consistent with ARDS. Patient has severe ARDS with a PF ratio of 90. Currently on propofol, fentanyl, Levophed of 12 with a mean arterial pressure of 68 through arterial line, tirofiban infusion. Bedside echocardiogram was done which showed bilateral B-lines. The TAPSE was good. No evidence of RV dysfunction. There was reduced movement in the lateral wall of the left ventricle. The IVC was not dilated. The E/E prime ratio of the lateral wall was 7. EF of around 45% visually Medications: Reviewed: Yes Vitals/I&O/Wt Last Vital Signs Temp 97.7 F 12/01/21 14:45 Pulse 89 12/01/21 16:30 Resp 25 H 12/01/21 16:30 BP 97/61 12/01/21 16:30 Pulse Ox 100 12/01/21 16:30 12/01/21 12/01/21 12/01/21 06:59 14:59 22:59 Intake Total 719.192 / 719.192 45.846 / 765.038 Output Total 440 / 440 Balance 279.192 / 279.192 45.846 / 325.038 Weight last 48 hrs Weight 57.351 kg Weight 57.969 kg Physical Exam Narrative: General: Intubated, sedated Cardio: Regular rate rhythm, normal S1-S2 Respiratory: B/l coarse crackles present GI: Abdomen soft, nontender, nondistended, bowel sounds + Extremities: no edema, no cyanosis.? Bandage left thigh appears clean.? No drainage noted.? Pulses present bilateral lower extremities.? Urinary Catheter Management: Diaz: Cath Placed During This Visit: yes, but has since been removed by the nurse Reason for Continuing Indwelling Catheter: Accurate Measurement of Urinary Output in Critically Ill Patients Urinary Catheter Date of Insertion: 11/26/21 Urinary Catheter Time of Insertion: 20:00 Date Urinary Catheter Removed: 11/30/21 Time Urinary Catheter Discontinued: 10:00 Data : 12/01/21 09:27 12/01/21 09:27 Micro: Microbiology 12/01/21 06:30 Gram Stain - Final Sputum - Endotracheal Tube Aspirate A&P Assessment and plan (1) Septic shock: Status: Acute (2) Acute ST segment elevation ND: Status: Acute (3) Sepsis with acute hypoxic respiratory failure: Status: Acute (4) Acute respiratory distress syndrome (ARDS): Status: Acute (5) Pneumonia: Status: Acute (6) Aspiration into airway: Status: Acute (7) 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 Currently on noninvasive ventilation Status: Acute (10) Dysphagia: Status: Acute (11) Torsades de pointes: Keep magnesium over 2, potassium over 4. Monitor electrolytes. Medical reconciliation done for QT prolonging medications. Status: Acute (12) Goals of care, counseling/discussion: Status: Acute Plan Acute anterior wall ND: Post PCI to LCx. Finished tirofiban infusion. Continue with aspirin, Plavix, statin. Will repeat echocardiogram within next 24 hours. Septic shock: Component of cardiogenic and septic shock. Keep mean arterial pressure 65. Wean off Levophed accordingly. Repeat sputum culture. For now cover broadly with vancomycin, Levaquin. Add Zosyn again. Repeat blood culture. Switch from Solu-Medrol to hydrocortisone 50 mg every 6 hourly. Will wean off progressively. ARDS: Most likely secondary to a combination of aspiration pneumonitis versus pneumonia, possible TRALI post 3 unit blood transfusion, in a patient who is vaping dependent with a history of lung cancer post radiation. CTA negative for PE. Respiratory viral panel/COVID-19/influenza negative. Pneumocystis PCR negative MRSA positive. Ventilator settings as per ARDS protocol. Increase PEEP. DuoNebs every 4 hours, budesonide twice daily. Keep net negative to equal balance for now. Monitor for contraction alkalosis. Strict input output charting, daily weights. Fluid restriction up to 1500 cc. IV Lasix 40 mg twice daily. Plan to continue sedation with propofol and fentanyl for now. Appreciate pulmonology recommendations. Thrombocytopenia: Most likely secondary to sepsis. Hold off on Lovenox. Check for DIC panel, HIT panel. Monitor for bleeding. Acute blood loss anemia: Post 3 unit blood transfusion. Monitor hemoglobin. IV iron for over 1 g over 5 days. Anxiety: We will restart home anxiety medications once near to extubation. History of lung cancer post radiation therapy Hip fracture post-ORIF Hepatitis C Amphetamine abuse Analgesia: Propofol, fentanyl Glycemic control: Not needed Nutrition: NPO. If continues to remain intubated for next 24 hours we will start on tube feeds. CODE STATUS: F CODE STATUS discussed in detail with patient's DPOA/mother Ms. Anglin and her family at bedside. Family is okay with patient getting defibrillation, mechanical ventilation but is not okay with chest compressions. CODE STATUS changed to limited resuscitation to everything except chest compressions. PUD prophylaxis: Protonix DVT prophylaxis: SCDs. Hold off on Lovenox given thrombocytopenia. Discharge planning: Plan for LTAC versus SNF once recovers. Continue with care at ICU care Attestations Medical Necessity Statement*: Requires further hospitalization for management of ARDS, septic shock, ventilator dependent, acute anterior wall ND post PCI Critical Care Time: The high probability of a clinically significant, sudden or life threatening deterioration of the patient's [cardiac, pulmonary, hematological, neurological, goals of care system(s) required my full and direct attention, intervention and personal management. The critical care time is as shown. 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
[2021-12-01] MEDS: vancomycin 1,000 MG in sodium chloride 0.9% 250 ML 250 MG IV (18:35)
--- NOTE | 2021-12-01 19:30 | PC.NURSE ---
Addendum entered by Chelle Fuentes RN 12/02/21 20:54: ERROR: Bedside report completed with JENA Madrid Original Note: Shift summary: Pt remained intubated and sedated throughout shift. Fentanyl and Propofol for sedation. Pt does ave Levophed gtt also. Some changes made to antibiotics. Right groin sheath removed without difficulty at 1400.. Site remains soft with no hematoma. Urine output of 1100 this shift. Family present throughout the shift, kept updated regularly. Family very attentive to patient. Bedsdie reprt completed with JENA Kaminski.
[2021-12-02] VITALS (76 sets, daily range): BP systolic 75–126; BP diastolic 48–73; PULSE 76–103; RESP 14–31; TEMP 36.5–37.7; O2SAT 87–100
[2021-12-02] MEDS: chlorhexidine gluconate 4% Btl 118 mL 1 APPLIC TOPICAL (01:44)
[2021-12-02] MEDS: ipratropium-albuterol 3 mL Neb INHALATION ×6 (04:18→23:12)
[2021-12-02] MEDS: hydrocortisone 100 mg/2 mL SDV 50 MG IVP ×3 (04:44→14:19)
[2021-12-02] MEDS: piperacillin-tazobactam 3.375 GM in sodium chloride 0.9% (plus) 50 ML IV ×3 (04:44→21:41)
[2021-12-02] MEDS: levoFLOXacin 500 mg Tablet PO (04:44)
[2021-12-02] MEDS: propofol 1,000 MG/100 ML INJ 13.91 MG IV (04:45)
[2021-12-02 05:08] LABS: Alanine Aminotransferase 27 U/L (0-33); Albumin Level 3.2 g/dL (3.5-5.2); Alkaline Phosphatase 76 IU/L (35-105); Anion Gap 18.3 (5-19); Aspartate Amino Transferase 66 U/L (0-32); Blood Urea Nitrogen 32 mg/dL (6-20); Calcium 8.4 mg/dL (8.5-10.5); Carbon Dioxide 21 mmol/L (22-29); Chloride 105 mmol/L (98-107); Glucose 136 mg/dL (65-115); Osmolality Calculated 299 mOsm/kg (285-295); Potassium 4.3 mmol/L (3.5-5.1); Sodium 140 mmol/L (136-145); Total Bilirubin 0.4 mg/dL (0.15-1.2); Total Protein 6.2 g/dL (6.6-8.7)
[2021-12-02 05:08] LABS: ABG PCO2 45.6 mmHg (35-45); ABG PH Result 7.27 (7.35-7.45); Alveolar-Arterial Oxygen Gradi 67.6 mmHg (5-10); Arterial Blood Gas Hematocrit 30.5 % (37-47); Base Excess ABG -5.8 mmol/L (-2.0-2.0); Blood Gas Operator Identificat JB; Blood Gas Sample Site Brachial, right; Blood Gas Sample Type Arterial; Carboxyhemoglobin 0.7 %THgb (0.4-20.1); HCO3 ABG 20.9 mmol/L (22-26); HGB O2 Sat 98.5 % (95-100); Ionized Calcium Level - ABG 1.2 mmol/L (1.1-1.4); Methemoglobin 0.3 % (0.4-1.5); Oxygen Device VENT; Oxygen Saturation ABG 99.6; Potassium Level - ABG 4.2 mmol/L (3.5-5.0)
[2021-12-02 05:09] LABS: Vancomycin Trough 24.6 ug/mL (10-15)
[2021-12-02 05:12] LABS: Creatinine Clr Calc Pharmacy 57.2706
--- NOTE | 2021-12-02 07:00 | PC.NURSE ---
Bedside report completed with JENA Madrid.
[2021-12-02] MEDS: budesonide 0.5 mg/2 mL Neb INHALATION ×2 (07:49→20:03)
--- NOTE | 2021-12-02 09:07 | XRR_ITS ---
PROCEDURE INFORMATION: Exam: XR Chest Exam date and time: 12/02/2021 10:58 AM Age: 51 years old Clinical indication: Device placement; Ett placement (vent status); Additional info: Intubated TECHNIQUE: Imaging protocol: Radiologic exam of the chest. Views: 1 view. COMPARISON: CR (CHEST, ) 12/01/2021 6:41 AM FINDINGS: Tubes, catheters and devices: Endotracheal tube terminates approximately 4.3 cm above the jae. Enteric tube passes into the stomach. Left subclavian central venous catheter terminates in the region of the superior cavoatrial junction. Lungs: Slightly improved ground-glass opacities in the lungs bilaterally. Pleural spaces: Unremarkable. No pleural effusion. No pneumothorax. Heart/Mediastinum: Unremarkable. No cardiomegaly. Bones/joints: Unremarkable. XR/XR chest 1V portable [id number] IMPRESSION: 1. Slightly improved ground-glass opacities in the lungs bilaterally. 2. Stable positioning of support apparatus.
--- NOTE | 2021-12-02 09:13 | USCV_ITS ---
Tracy Melton Age: 51 Gender: F : 1970 Exam Date: 12/02/2021 09:51 Ordering Phys: Carlos Bernal MD Technologist: Thomas Barrett [place]am Location[place] [facility] [place]ication: Assess LV function BP: 96 / 55 HR: 98 Rhythm: Sinus Technical Quality: Adequate MEASUREMENTS (Male / Female) Normal Values 2D ECHO LV Diastolic Diameter PLAX 3.5 cm 4.2 - 5.9 / 3.9 - 5.3 cm LV Systolic Diameter PLAX 2.6 cm IVS Diastolic Thickness 1.0 cm 0.6 - 1.0 / 0.6 - 0.9 cm IVS Systolic Thickness 1.5 cm LVPW Diastolic Thickness 1.1 cm 0.6 - 1.0 / 0.6 - 0.9 cm LVPW Systolic Thickness 1.3 cm LVOT Diameter 2.0 cm LV Ejection Fraction 2D Teich 42.8 % LV Ejection Fraction MOD 2C 59.5 % LV Ejection Fraction 2C AL 59.8 % LA Diameter 3.2 cm M-MODE Aortic Annulus Diameter 2.8 cm LA Ao Ratio MM 1.1 MV E Point Septal Separation 0.6 cm DOPPLER TR Peak Velocity 281.0 cm/s TR Peak Gradient 31.6 mmHg Right Atrial Pressure 3.0 mmHg Pulmonary Artery Systolic Pressu 34.6 mmHg FINDINGS Left Ventricle Normal left ventricular size, systolic function and wall thickness. Left ventricular ejection fraction is estimated at 65 %. Mild hyokinesis of basal to mid inferolateral chavez. Right Ventricle Normal right ventricular size and systolic function. Right ventricular systolic pressure 35 mmHg. Right Atrium Normal right atrial size. Left Atrium Normal left atrial size. Mitral Valve Mildly thickened mitral valve. No mitral valve stenosis. Trace mitral valve regurgitation. Aortic Valve Probably trileaflet aortic valve. No aortic valve stenosis. No aortic valve regurgitation. Tricuspid Valve Structurally normal tricuspid valve. No tricuspid valve stenosis. Trace to mild tricuspid valve regurgitation. Pulmonic Valve Pulmonic valve not well visualized. Pericardium No pericardial effusion. Aorta Normal size aortic root. IVC Inferior vena cava not visualized. CONCLUSIONS 1. Normal left ventricular size, systolic function and wall thickness. Left ventricular ejection fraction is estimated at 65 %. Mild hyokinesis of basal to mid inferolateral chavez. 2. Trace to mild tricuspid valve regurgitation. 3. Pulmonary artery pressure estimated at 35 mm Hg. 4. When compared to study dated 11/22/21, there is new regional wall abnormality. Chetna Napoles MD (Electronically Signed) Final Date: 02 December 2021 18:44 S
[2021-12-02] MEDS: chlorhexidine gluconate 0.12% Btl 473 mL 15 ML MUCOUS MEM ×2 (09:24→17:59)
[2021-12-02] MEDS: clopidogrel 75 mg Tablet PO (09:24)
[2021-12-02] MEDS: aspirin 81 mg EC Tablet PO (09:24)
[2021-12-02] MEDS: potassium chloride oral liq 20 mEq/15 mL UDC 40 MEQ PO (09:25)
[2021-12-02] MEDS: pantoprazole 40 mg SDV IVP ×2 (09:26→21:49)
[2021-12-02] MEDS: fluconazole premix 100 MG in empty flexible container 1 EACH 50 MG IV (09:36)
[2021-12-02 10:01] LABS: Basophils % 0.1 %; Eosinophils % 0.1 %; Hematocrit 24.8 % (37.0-47.0); Hemoglobin 8.1 g/dL (11.5-15.3); Lymphocytes # 0.6 10^3/uL (0.8-4.8); Mean Corpuscular HGB Conc 32.7 g/dL (30.0-36.0); Mean Corpuscular Hemoglobin 29.7 pg (28.0-34.0); Mean Corpuscular Volume 90.8 fl (81-99); Mean Platelet Volume 12.6 fL (7.4-10.4); Monocytes # 0.9 10^3/uL (0.2-0.9); Monocytes % 4.1 %; Neutrophils % 90.4 %; Nucleated Red Blood Cells % 0 %; Platelet Count 106 10^3/cmm (130-400); Red Blood Count 2.73 10^6/uL (4.1-5.3); Red Cell Distribution Width 16.4 % (12.1-15.1); White Blood Count 20.9 10^3/uL (4.0-10.0)
--- NOTE | 2021-12-02 10:06 | P.PN_ITS ---
Subjective Subjective: Patient is stable. Still intubated. Vitals/I&O/Wt Last Vital Signs Temp 100 F H 12/02/21 08:00 Pulse 88 12/02/21 08:10 Resp 26 H 12/02/21 09:30 BP 102/63 12/02/21 08:00 Pulse Ox 100 12/02/21 09:30 12/01/21 12/02/21 12/02/21 22:59 06:59 14:59 Intake Total 487.041 / 1206.233 215.811 / 1422.044 150.167 / 150.167 Output Total 700 / 1140 750 / 1890 Balance -212.959 / 66.233 -534.189 / -467.956 150.167 / 150.167 Weight last 48 hrs Weight 131 lb Weight 126 lb 7 oz Physical Exam Narrative: GENERAL: Patient is intubated and sedated HEART: Regular rate and rhythm LUNGS: Decreased breath sounds ABDOMEN: Soft CENTRAL NERVOUS SYSTEM: Grossly nonfocal. [] EXTREMITIES: Lower extremities with 1+ edema bilaterally. Urinary Catheter Management: Diaz: Cath Placed During This Visit: yes, but has since been removed by the nurse Reason for Continuing Indwelling Catheter: Accurate Measurement of Urinary O utput in Critically Ill Patients Urinary Catheter Date of Insertion: 11/26/21 Urinary Catheter Time of Insertion: 20:00 Date Urinary Catheter Removed: 11/30/21 Time Urinary Catheter Discontinued: 10:00 Data : 12/01/21 09:27 12/02/21 04:00 Micro: Microbiology 12/02/21 09:45 Blood Culture - Preliminary Blood SPECIMEN COLLECTED 12/02/21 09:50 Blood Culture - Preliminary Blood SPECIMEN COLLECTED 12/01/21 06:30 Gram Stain - Final Sputum - Endotracheal Tube Aspirate A&P Assessment and plan (1) Torsades de pointes: Status: Acute (2) Septic shock: Status: Acute (3) Acute ST segment elevation OR: Status: Acute (4) ARDS (adult respiratory distress syndrome): Status: Acute (5) COPD (chronic obstructive pulmonary disease): Status: Acute (6) Hepatitis C: Status: Acute Qualifiers: Viral hepatitis chronicity: chronic Hepatic coma status: without hepatic coma Qualified Code(s): B18.2 - Chronic viral hepatitis C Plan Patient had polymorphic ventricular tachycardia earlier this morning and was shocked back to normal sinus rhythm. Duration of VT was brief. Subsequently she was intubated. ST elevations were noted on EKG in lateral leads. Cardiac Commercial Engineer was emergently activated. Dr. Polk obtained consent prior to intubation from the patient and her mother was also called prior to the procedure. Patient underwent successful revascularization of total thrombotic occlusion of left circumflex artery with JOAQUIN x1. She was put on Aggrastat drip for 6 hours. Continue aspirin and plavix ECHO performed today shows normal LV systolic function Patient is stable from cardiac standpoint but overall prognosis still guarded Thank you for involving us with care of this patient. We will continue to follow. Please call with questions. Attestations Medical Necessity Statement*: Care expected to cross 2 midnights. Coding Level of Care Code Acute Toe Trimmer for [facility] Kylie Diagnoses Torsades de pointes I47.2 Septic shock A41.[address]; [address] segment elevation OR I21.3 ARDS (adult respiratory distress syndrome) J80 COPD (chronic obstructive pulmonary disease) J44.9 Hepatitis C B18.2 Viral hepatitis chronicity: chronic Hepatic coma status: without hepatic coma
[2021-12-02 10:18] LABS: Lactic Sepsis W/Reflex 1.8 mmol/L (0.5-2.2)
[2021-12-02 10:56] LABS: Troponin T (5th) Once 1786 ng/L (0-10)
[2021-12-02 10:56] LABS: ABG PCO2 39.8 mmHg (35-45); ABG PH Result 7.35 (7.35-7.45); Arterial Blood Gas Hematocrit 25.4 % (37-47); Base Excess ABG -3.6 mmol/L (-2.0-2.0); Blood Gas Allen Test Pos; Blood Gas Operator Identificat GD; Blood Gas Sample Site Radial, left; Blood Gas Sample Type Arterial; HCO3 ABG 21.8 mmol/L (22-26); HGB O2 Sat 96.3 % (95-100); Ionized Calcium Level - ABG 1.2 mmol/L (1.1-1.4); Methemoglobin 0.3 % (0.4-1.5); Oxygen Device VENT; Oxygen Saturation ABG 97.6; PO2 ABG 83.8 mmHg (80.0-100.0); Potassium Level - ABG 5.3 mmol/L (3.5-5.0); Total Hemoglobin 8.3 g/dL (12-16)
--- NOTE | 2021-12-02 11:25 | P.PN_ITS ---
Subjective Subjective: Patient is still intubated. Medications: Reviewed: Yes Vitals/I&O/Wt Last Vital Signs Temp 100 F H 12/02/21 08:00 Pulse 88 12/02/21 08:10 Resp 26 H 12/02/21 09:30 BP 102/63 12/02/21 08:00 Pulse Ox 100 12/02/21 09:30 12/01/21 12/02/21 12/02/21 22:59 06:59 14:59 Intake Total 487.041 / 1206.233 215.811 / 1422.044 250.167 / 250.167 Output Total 700 / 1140 750 / 1890 Balance -212.959 / 66.233 -534.189 / -467.956 250.167 / 250.167 Weight last 48 hrs Weight 131 lb Weight 126 lb 7 oz Physical Exam Const: COMMON NORMALS: average body habitus, patient oriented x3 and alert GENERAL APPEARANCE: cooperative and comfortable ORIENTATION/CONSCIOUSNESS: Yes awake HENMT: COMMON NORMALS: normocephalic and atraumatic HEAD & SCALP: normocephalic and atraumatic Eye: GENERAL EYE: appearance normal, both eyes and all related structures Chest: COMMONS NORMALS: normal inspection of the chest Resp: COMMON NORMALS: negative for normal respiratory effort EFFORT & INSPECTION: No able to speak in complete sentences and Yes symmetric chest movement OTHER: Patient is up in a chair with high flow oxygen. She is able to appropriately answer questions. Extremity: LEFT LOWER EXTREMITY: Yes upper leg ([place] are in place, these will be removed today.) Left upper leg: Yes inspection (Evidence of drainage on dressing, but no expressible drainage), Yes palpation (No apparent response.) and Yes neurovascular exam (Unable to evaluate.) Neuro: COMMON NORMALS: patient oriented x3 SENSORIUM/ORIENTATION: Yes alert Psych: COMMON NORMALS: mental status grossly normal APPEARANCE: Yes grossly normal ATTITUDE: Yes calm and Yes engaged ATTENTION/CONCENTRATION: Yes attention grossly intact Skin: COMMON NORMALS: no rashes or lesions noted GENERAL SKIN EXAM: no rashes or lesions noted Urinary Catheter Management: Diaz: Cath Placed During This Visit: yes, but has since been removed by the nurse Reason for Continuing Indwelling Catheter: Accurate Measurement of Urinary Output in Critically Ill Patients Urinary Catheter Date of Insertion: 11/26/21 Urinary Catheter Time of Insertion: 20:00 Date Urinary Catheter Removed: 11/30/21 Time Urinary Catheter Discontinued: 10:00 Data : 12/02/21 09:45 12/02/21 04:00 Micro: Microbiology 12/02/21 09:45 Blood Culture - Preliminary Blood SPECIMEN COLLECTED 12/02/21 09:50 Blood Culture - Preliminary Blood SPECIMEN COLLECTED 12/01/21 06:30 Gram Stain - Final Sputum - Endotracheal Tube Aspirate A&P Assessment and plan (1) Encounter for postoperative care: Patient had significant respiratory problems following her surgical intervention on November 17. These included aspiration pneumonia and acute hypoxic respiratory failure along with ARDS. She was improving and participating with therapies, but now she is intubated secondary to cardiac and respiratory issues. There was noticeable drainage from the wound, and this is visible on the dressing, but there is no drainage expressed with palpation. Van [place]ren will be removed and the area will be Steri-Stripped. 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: Status: Acute Qualifiers: Fracture morphology: oblique Fracture alignment: displaced Qualified Code(s): S72.332K - Displaced oblique fracture of shaft of left femur, subsequent encounter for closed fracture with nonunion (3) Pathological fracture of femur: Status: Acute Qualifiers: Pathology associated with fracture: neoplastic disease Encounter type: sequela Laterality: left Qualified Code(s): M84.552S - Pathological fracture in neoplastic disease, left femur, sequela Attestations Medical Necessity Statement*: Ongoing medical treatments following open reduction internal fixation with takedown of nonunion left femur Coding Level of Care Code Acute Tester Armature Or Fields for [facility] Diagnoses Encounter for postoperative care Z48.89 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
[2021-12-02] MEDS: FUROsemide 10 mg/mL SDV 4mL 40 MG IVP (11:40)
--- NOTE | 2021-12-02 12:16 | PC.OT ---
OT tx held this date d/t intubation. Will attempt tomorrow.
--- NOTE | 2021-12-02 13:22 | P.PN_ITS ---
Subjective Subjective: The patient was seen and examined. She is intubated and sedated. Chest x-ray this morning revealed improvement in bilateral infiltrate. Her oxygen requirement has been coming down. The patient is currently on MV. Her tidal volume seems to be higher however this is preventing her from getting auto PEEP's. When the patient was on controlled mechanical ventilation, this was resulting in tachypnea and auto peeping. The patient is currently on fentanyl and propofol. Her respiration with high tidal volume and low respiratory rate is consistent with opioid mediated respiratory status. The patient is even today. Her white count has come down. She is on broad- spectrum antibiotic. Her pressor requirement has come down. Currently she is on 2 mcgs of Levophed. Hemoglobin stable. Mildly reduced compared to yesterday. Platelet count is 106,000. Given the sudden drop in platelet count when the patient was suffering from acute myocardial infarction, I doubt the patient has HIT. Her DIC work-up was negative. Vitals/I&O/Wt Last Vital Signs Temp 100 F H 12/02/21 08:00 Pulse 99 12/02/21 12:00 Resp 18 12/02/21 12:00 BP 102/63 12/02/21 08:00 Pulse Ox 92 12/02/21 12:00 12/01/21 12/02/21 12/02/21 22:59 06:59 14:59 Intake Total 487.041 / 1206.233 215.811 / 1422.044 382.525 / 382.525 Output Total 700 / 1140 750 / 1890 Balance -212.959 / 66.233 -534.189 / -467.956 382.525 / 382.525 Weight last 48 hrs Weight 131 lb Weight 126 lb 7 oz Physical Exam Narrative: General: Patient is intubated and sedated Neck: Unable to assess JVD as the patient is supine Respiratory: Auscultation: Reduced crackles compared to yesterday, no wheezing or rhonchi Cardiovascular: Regular rate and rhythm, S1-S2 present, no murmur, no peripheral edema. Abdomen: Soft, nondistended, positive bowel sound Musculoskeletal: No obvious joint deformity Skin: Incision site in the left lower extremity appears to be clean, no signs of infection Neuro: The patient is sedated, unable to assess Urinary Catheter Management: Diaz: Cath Placed During This Visit: yes, but has since been removed by the nurse Reason for Continuing Indwelling Catheter: Accurate Measurement of Urinary Output in Critically Ill Patients Urinary Catheter Date of Insertion: 11/26/21 Urinary Catheter Time of Insertion: 20:00 Date Urinary Catheter Removed: 11/30/21 Time Urinary Catheter Discontinued: 10:00 Data : 12/02/21 09:45 12/02/21 04:00 Micro: Microbiology 12/01/21 06:30 Gram Stain - Final Sputum - Endotracheal Tube Aspirate Sputum Culture - Preliminary 12/02/21 09:45 Blood Culture - Preliminary Blood SPECIMEN COLLECTED 12/02/21 09:50 Blood Culture - Preliminary Blood SPECIMEN COLLECTED Other data: I have reviewed the patient's laboratory, microbiologic and radiologic data. The endotracheal aspirate culture has been negative so far. Blood cultures from today's negative. A&P Assessment and plan (1) ARDS (adult respiratory distress syndrome): The patient has developed ARDS. This is likely secondary to aspiration event, septic shock, severe hemodynamic abnormalities . Her lactic acidosis had satinder ected yesterday. The patient is currently sedated with fentanyl propofol. We will titrate the fentanyl down while the patient remains comfortable. Going to give the patient additional doses of diuretics with a goal of making her 1.5 L negative tomorrow. I will obtain a BMP at 6 PM and replete electrolytes as necessary. The patient is currently on MMP. The patient appears to be most comfortable on the setting and she is also not having auto PEEP. I am hoping once the noncardiogenic pulmonary edema is better, this will reduce the patient's respiratory effort and hopefully reduce the tidal volume. I expect her FiO2 requirement to continue to come down. The patient is currently broadly covered with antibiotics as well as antifungal. I will hold off on tube feeds today. We can start trickle feeds tomorrow. Status: Acute (2) Acute ST segment elevation IA: The patient had suffered from acute ST elevated IA with occlusion of the left circumflex coronary artery. The patient received a drug-eluting stent earlier this morning. She had suffered from torsades prior to the detection of the acute ST elevated IA. The patient is currently on dual antiplatelet therapy with aspirin and Plavix. Status: Acute (3) Septic shock: The patient is currently requiring Levophed. The etiology of the septic shock is likely pneumonia or possible translocation of gut bacteria. The patient is on broad-spectrum antibiotic. Her pressor requirement is coming down. I am going to reduce the stress dose steroids. Status: Acute (4) History of lung cancer: The patient has history of lung cancer. No recent evidence of progression of disease. She has radiation-induced changes in the left upper lobe. Recent chest x-ray in September 2021 did not reveal any abnormalities other than emphysema. The patient is currently on Pulmicort and DuoNeb. No wheezing today. Status: Acute (5) Thrombocytopenia: Patient had developed thrombocytopenia yesterday when she had suffered from ST elevated IA. There had been more than 50% drop in the platelet count however this was a very sudden drop from a normal white count. The repeat CBC reviewed increased platelet count. Since then, the platelet count has dropped however this pattern is not consistent with HIT. In any case, the patient is undergoing work-up for HIT. For the time being, I will start her on fondaparinux. Even though the patient has guaiac positive stool, there is no active GI bleed. If necessary, the patient may get PRBC. There had been concerns for trolley in the past however blood transfusion would not be contraindicated for that. 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 No evidence of wound infection. Overall, her prognosis is poor given multiple comorbidities. Continue the supportive therapy for the time being. Status: Acute Qualifiers: Fracture morphology: oblique Fracture alignment: displaced Qualified Code(s): S72.332K - Displaced oblique fracture of shaft of left femur, subsequent encounter for closed fracture with nonunion Attestations Medical Necessity Statement*: Will defer to the primary team. 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
[2021-12-02 15:58] LABS: Add Urine Microscopic? YES; Bilirubin Urine Neg (Negative); Blood Urine Neg (Negative); Glucose Urine UA Norm (Normal); Ketones Urine Negative (Negative); Leukocyte Esterase Urine Negative (Negative); Nitrate Urine Negative (Negative); Protein Urine Neg (Negative); Urine Appearance Turbid (CLEAR); Urine Color Yellow (Yellow); Urobilinogen Urine Norm (Negative); pH Urine 5 (5-7)
[2021-12-02 15:59] LABS: Add Urine Culture? No; Amorphous Sediment Urine 3+ /hpf; Bacteria Urine 1+ /hpf
[2021-12-02] MEDS: FUROsemide 10 mg/mL SDV 10mL 60 MG IVP ×2 (16:56→21:48)
[2021-12-02] MEDS: propofol 1,000 MG/100 ML INJ 17.39 MG IV ×2 (17:05→21:49)
--- NOTE | 2021-12-02 17:42 | PM.PN ---
Subjective Subjective: Today morning patient examined while being intubated and sedated. Her oxygen requirements have come down slightly. Currently requiring FiO2 of 80% with PEEP of 10. Currently on MV mode. Currently on fentanyl and propofol. Currently on 2 mics of Levophed. Documented urine output of around 1900 cc in last 24 hours. Platelet counts improving. DIC work-up negative. T-max in last 24 hours 100 Fahrenheit. Medications: Reviewed: Yes Vitals/I&O/Wt Last Vital Signs Temp 100 F H 12/02/21 08:00 Pulse 88 12/02/21 15:49 Resp 23 H 12/02/21 15:49 BP 102/63 12/02/21 08:00 Pulse Ox 96 12/02/21 15:49 12/02/21 12/02/21 12/02/21 06:59 14:59 22:59 Intake Total 215.811 / 1422.044 483.300 / 483.300 Output Total 750 / 1890 Balance -534.189 / -467.956 483.300 / 483.300 Weight last 48 hrs Weight 59.421 kg Weight 57.351 kg Physical Exam Narrative: General: Intubated, sedated Cardio: Regular rate rhythm, normal S1-S2 Respiratory: B/l coarse crackles present GI: Abdomen soft, nontender, nondistended, bowel sounds + Extremities: no edema, no cyanosis.? Bandage left thigh appears clean.? No drainage noted.? Pulses present bilateral lower extremities.? Urinary Catheter Management: Diaz: Cath Placed During This Visit: yes, but has since been removed by the nurse Reason for Continuing Indwelling Catheter: Accurate Measurement of Urinary Output in Critically Ill Patients Urinary Catheter Date of Insertion: 11/26/21 Urinary Catheter Time of Insertion: 20:00 Date Urinary Catheter Removed: 11/30/21 Time Urinary Catheter Discontinued: 10:00 Data : 12/02/21 09:45 12/02/21 04:00 Micro: Microbiology 12/01/21 06:30 Gram Stain - Final Sputum - Endotracheal Tube Aspirate Sputum Culture - Preliminary 12/02/21 09:45 Blood Culture - Preliminary Blood SPECIMEN COLLECTED 12/02/21 09:50 Blood Culture - Preliminary Blood SPECIMEN COLLECTED A&P Assessment and plan (1) Septic shock: Status: Acute (2) Acute ST segment elevation MO: Status: Acute (3) Sepsis with acute hypoxic respiratory failure: Status: Acute (4) Acute respiratory distress syndrome (ARDS): Status: Acute (5) Pneumonia: Status: Acute (6) Aspiration into airway: Status: Acute (7) 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 Currently on noninvasive ventilation Status: Acute (10) Dysphagia: Status: Acute (11) Torsades de pointes: Keep magnesium over 2, potassium over 4. Monitor electrolytes. Medical reconciliation done for QT prolonging medications. Status: Acute (12) Goals of care, counseling/discussion: Status: Acute Plan Acute anterior wall MO: Post PCI to LCx. Finished tirofiban infusion. Continue with aspirin, Plavix, statin. Will repeat echocardiogram within next 24 hours. Septic shock: Component of cardiogenic and septic shock. Keep mean arterial pressure 65. Wean off Levophed accordingly. Repeat sputum culture. For now cover broadly with vancomycin, Levaquin. Add Zosyn again. Repeat blood culture. Switch from Solu-Medrol to hydrocortisone 50 mg every 6 hourly. Will wean off progressively. ARDS: Most likely secondary to a combination of aspiration pneumonitis versus pneumonia, possible TRALI post 3 unit blood transfusion, in a patient who is vaping dependent with a history of lung cancer post radiation. CTA negative for PE. Respiratory viral panel/COVID-19/influenza negative. Pneumocystis PCR negative MRSA positive. Ventilator settings as per ARDS protocol. Increase PEEP. DuoNebs every 4 hours, budesonide twice daily. Keep net negative to equal balance for now. Monitor for contraction alkalosis. Strict input output charting, daily weights. Fluid restriction up to 1500 cc. IV Lasix 40 mg twice daily. Plan to continue sedation with propofol and fentanyl for now. Appreciate pulmonology recommendations. Thrombocytopenia: Most likely secondary to sepsis. Hold off on Lovenox. Check for DIC panel, HIT panel. Monitor for bleeding. Acute blood loss anemia: Post 3 unit blood transfusion. Monitor hemoglobin. IV iron for over 1 g over 5 days. Anxiety: We will restart home anxiety medications once near to extubation. History of lung cancer post radiation therapy Hip fracture post-ORIF Hepatitis C Amphetamine abuse Analgesia: Propofol, fentanyl Glycemic control: Not needed Nutrition: NPO. If continues to remain intubated for next 24 hours we will start on tube feeds. CODE STATUS: F CODE STATUS discussed in detail with patient's DPOA/mother Ms. Anglin and her family at bedside. Family is okay with patient getting defibrillation, mechanical ventilation but is not okay with chest compressions. CODE STATUS changed to limited resuscitation to everything except chest compressions. PUD prophylaxis: Protonix DVT prophylaxis: SCDs. Hold off on Lovenox given thrombocytopenia. Discharge planning: Plan for LTAC versus SNF once recovers. Continue with care at ICU care Plan for the day: Repeat Cxr, C/w current Abx. F/w Sputum Cx. Check UA, Repeat Bcx. Wean hydrocortisone 50 mg every 12 hourly. Continue with diuresis. DIC negative. Platelet count improving. Restart fondaparinux from tomorrow morning. Add fluconazole 100 mg IV daily for next 5 days. Levophed keeping maps over 65. Started tube feeds with Pulmocare with goal of 50 cc/h. 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
[2021-12-02 19:10] LABS: Vancomycin Trough 15.3 ug/mL (10-15)
[2021-12-02 19:11] LABS: Anion Gap 18.7 (5-19); Blood Urea Nitrogen 31 mg/dL (6-20); Calcium 8.8 mg/dL (8.5-10.5); Carbon Dioxide 22 mmol/L (22-29); Chloride 104 mmol/L (98-107); Glucose 137 mg/dL (65-115); Osmolality Calculated 301 mOsm/kg (285-295); Potassium 3.7 mmol/L (3.5-5.1); Sodium 141 mmol/L (136-145)
--- NOTE | 2021-12-02 19:20 | PC.NURSE ---
1900 vancomycin not administered yet due to Iv infiltration and new IV start and Albumin to finish first.
--- NOTE | 2021-12-02 19:35 | PC.NURSE ---
Shift summary: Pt remains sedated and intubated. Propofol and Fentanyl remain the sedation medications. Levophed is still infusing, started the shift at 2mcg/min. End of shift infusing at 4mcg/min. Albumin started today. FIO2 on vent decreased from 100 to 50 throughout shift. Tube feeding ordered, then placed on hold the reordered, night nurse to start. Pt has received 100mg of Lasix this shift in 2 divided doses. Urine output of 1025. No Bm this shift. Pancho in left leg removed and steri-strips and benzoine applied as directed by Dr Terry today. Left arm Iv infiltrated with Albumin, area softer by end of shift. bedsdie report completed with JENA Castellon.
[2021-12-02] MEDS: vancomycin 1,000 MG in sodium chloride 0.9% 250 ML 250 MG IV (20:17)
[2021-12-02 21:08] LABS: Glucose Point of Care 150 mg/dL (70-110)
[2021-12-02] MEDS: potassium chloride ER 20 mEq Tablet 40 MEQ PO (23:49)
[2021-12-03] VITALS (78 sets, daily range): BP systolic 83–157; BP diastolic 45–96; PULSE 74–103; RESP 15–30; TEMP 36.9–39.3; O2SAT 80–95
[2021-12-03] MEDS: hydrocortisone 100 mg/2 mL SDV 50 MG IVP ×2 (00:34→13:36)
[2021-12-03] MEDS: chlorhexidine gluconate 4% Btl 118 mL 1 APPLIC TOPICAL (00:34)
[2021-12-03] MEDS: ipratropium-albuterol 3 mL Neb INHALATION ×6 (03:15→23:00)
[2021-12-03] MEDS: propofol 1,000 MG/100 ML INJ 17.39 MG IV ×2 (04:07→08:20)
[2021-12-03] MEDS: piperacillin-tazobactam 3.375 GM in sodium chloride 0.9% (plus) 50 ML IV ×3 (05:15→21:48)
[2021-12-03 05:38] LABS: ABG PH Result 7.42 (7.35-7.45); Base Excess ABG -0.4 mmol/L (-2.0-2.0); Oxygen Device VENT; Oxygen Saturation ABG 92.5; Potassium Level - ABG 2.7 mmol/L (3.5-5.0)
[2021-12-03 05:39] LABS: Basophils % 0.1 %; Eosinophils # 0.1 10^3/uL (0.0-0.8); Eosinophils % 0.3 %; Hemoglobin 7.5 g/dL (11.5-15.3); Lymphocytes # 0.7 10^3/uL (0.8-4.8); Lymphocytes % 3.6 %; Mean Corpuscular HGB Conc 32.6 g/dL (30.0-36.0); Mean Corpuscular Hemoglobin 30.1 pg (28.0-34.0); Mean Corpuscular Volume 92.4 fl (81-99); Mean Platelet Volume 11.5 fL (7.4-10.4); Monocytes # 0.7 10^3/uL (0.2-0.9); Monocytes % 4.1 %; Neutrophils # 15.95 10^3/uL (1.8-7.7); Neutrophils % 89.7 %; Nucleated Red Blood Cells % 0.2 %; Platelet Count 141 10^3/cmm (130-400); Red Blood Count 2.49 10^6/uL (4.1-5.3); Red Cell Distribution Width 17.1 % (12.1-15.1); White Blood Count 17.8 10^3/uL (4.0-10.0)
[2021-12-03 05:39] LABS: Arterial Blood Gas Hematocrit 23.3 % (37-47); Ionized Calcium Level - ABG 1.2 mmol/L (1.1-1.4); Total Hemoglobin 7.6 g/dL (12-16)
[2021-12-03 05:40] LABS: Carboxyhemoglobin 1.2 %THgb (0.4-20.1); HGB O2 Sat 91.4 % (95-100)
--- NOTE | 2021-12-03 06:00 | XRR_ITS ---
PROCEDURE INFORMATION: Exam: XR Chest Exam date and time: 12/03/2021 5:56 AM Age: 51 years old Clinical indication: Device placement; Ett placement (vent status); Additional info: Intubated TECHNIQUE: Imaging protocol: Radiologic exam of the chest. Views: 1 view. COMPARISON: CR (CHEST, ) 12/02/2021 10:58 AM FINDINGS: Tubes, catheters and devices: Endotracheal tube approximately 4 cm above the jae. Left-sided subclavian central venous chest port noted with the distal tip at the cavoatrial junction. An enteric tube is noted extending below the level of the diaphragm and out of the field of view. Lungs: Ground-glass densities in the lung bases, slightly worse on the left versus the right similar to prior exam. Pleural spaces: No pneumothorax. No pleural effusion. Heart/Mediastinum: The cardiomediastinal silhouette is within normal limits. Bones/joints: Cervical spinal fixation hardware noted. XR/XR chest 1V portable [id number] IMPRESSION: No significant change from prior exam.
[2021-12-03 06:01] LABS: Alanine Aminotransferase 18 U/L (0-33); Albumin Level 4.3 g/dL (3.5-5.2); Alkaline Phosphatase 58 IU/L (35-105); Anion Gap 17.6 (5-19); Aspartate Amino Transferase 28 U/L (0-32); Blood Urea Nitrogen 34 mg/dL (6-20); Calcium 8.9 mg/dL (8.5-10.5); Carbon Dioxide 24 mmol/L (22-29); Chloride 104 mmol/L (98-107); Globulin 2.4 g/dL (1.3-4.6); Glucose 128 mg/dL (65-115); Osmolality Calculated 305 mOsm/kg (285-295); Phosphorus 2.8 mg/dL (2.5-4.5); Sodium 143 mmol/L (136-145); Total Bilirubin 0.4 mg/dL (0.15-1.2); Total Protein 6.7 g/dL (6.6-8.7)
[2021-12-03 06:11] LABS: Potassium 2.6 mmol/L (3.5-5.1)
[2021-12-03 06:16] LABS: ABG PCO2 37.1 mmHg (35-45); Alveolar-Arterial Oxygen Gradi 37.5 mmHg (5-10); Blood Gas Allen Test Pos; Blood Gas Sample Site Radial, right; Blood Gas Sample Type Arterial; Methemoglobin < 0.0 % (0.4-1.5); PO2 ABG 59.7 mmHg (80.0-100.0)
--- NOTE | 2021-12-03 06:55 | PC.NURSE ---
Bedside report completed with JENA Castellon
[2021-12-03] MEDS: budesonide 0.5 mg/2 mL Neb INHALATION ×2 (07:32→20:06)
[2021-12-03] MEDS: potassium chloride oral liq 20 mEq/15 mL UDC 40 MEQ PO (08:00)
[2021-12-03] MEDS: clopidogrel 75 mg Tablet PO (08:01)
[2021-12-03] MEDS: docusate sodium 100 mg Capsule PO ×2 (08:01→18:18)
[2021-12-03] MEDS: aspirin 81 mg EC Tablet PO (08:01)
[2021-12-03] MEDS: potassium chloride premix 100 ML 25 MEQ IV (08:02)
[2021-12-03] MEDS: chlorhexidine gluconate 0.12% Btl 473 mL 15 ML MUCOUS MEM ×2 (08:20→18:17)
--- NOTE | 2021-12-03 09:40 | XRR_ITS ---
PROCEDURE INFORMATION: Exam: XR Chest Exam date and time: 12/03/2021 9:53 AM Age: 51 years old Clinical indication: Device placement; Other: Og placement; Additional info: Og placment TECHNIQUE: Imaging protocol: Radiologic exam of the chest. Views: 1 view. COMPARISON: CR (CHEST, ) 12/03/2021 5:56 AM FINDINGS: Tubes, catheters and devices: An enteric tube is noted with the distal tip below the level of the diaphragm in the region of the stomach. Left-sided subclavian central venous chest port with the distal tip in the lower SVC. Endotracheal tube approximately 4 cm above the jae. Lungs: Persistent bilateral ground-glass opacities most predominant in the lung bases. Pleural spaces: No pneumothorax. No pleural effusion. Heart/Mediastinum: The cardiomediastinal silhouette is within normal limits. Bones/joints: Unremarkable. XR/XR chest 1V portable [id number] IMPRESSION: An enteric tube is noted with the distal tip below the level of the diaphragm in the region of the stomach.
[2021-12-03] MEDS: pantoprazole 40 mg SDV IVP ×2 (10:40→21:48)
[2021-12-03] MEDS: dexmedeTOMIDine 0.9 % NaCL 400 MCG/100 ML PREMIX IV (10:41)
[2021-12-03] MEDS: fluconazole premix 100 MG in empty flexible container 1 EACH 50 MG IV (10:45)
[2021-12-03] MEDS: fondaparinux 2.5 mg/0.5 mL Syringe SUBCUT (10:46)
[2021-12-03] MEDS: buPROPion XL (24 HR) 150 mg Tablet PO (10:47)
[2021-12-03] MEDS: sertraline 100 mg Tablet PO (10:49)
[2021-12-03] MEDS: sucralfate 1 gm/10 mL Oral Liq UDC PO (10:50)
--- NOTE | 2021-12-03 11:17 | PC.NURSE ---
0830 Unable to flush or get suction on OG., worked on OG for 30 minutes. OG clogged 0900 Dr Crooks notified. Orders to change out OG received. 0930 OG removed and new 16fr OG inserted, Placement checked by auscultation Xray ordered and done. 1100 Xray confirmed OG placement. ALL am PO/OG medications administered now.
--- NOTE | 2021-12-03 11:54 | PC.OT ---
Pt still intubated this date. Will attempt OT tx tomorrow.
--- NOTE | 2021-12-03 12:00 | PM.PN ---
Subjective Subjective: Patient was seen and examined. Excellent urine output over the past 24 hours. The patient has more than 2 L negative. Chest x-ray this morning revealed bilateral infiltrate. The patient is current on 60% oxygen. She is on pressure support ventilation 5/10. With titrating down the sedation. Her white count has been stable. Mild reduction in hemoglobin. Platelet count has recovered. Vitals/I&O/Wt Last Vital Signs Temp 98 F 12/02/21 17:30 Pulse 85 12/03/21 11:11 Resp 24 H 12/03/21 11:39 BP 103/53 12/03/21 05:30 Pulse Ox 87 L 12/03/21 11:39 12/02/21 12/03/21 12/03/21 22:59 06:59 14:59 Intake Total 395.363 / 928.663 253.817 / 1182.480 297.616 / 297.616 Output Total 1724 1150 / 3160 Balance -1329.637 / -1081.337 -896.183 / -1977.520 297.616 / 297.616 Weight last 48 hrs Weight 125 lb 9.6 oz Weight 131 lb Physical Exam Narrative: General: Patient is intubated and sedated, able to follow commands intermittently Neck: Unable to assess JVD as the patient is supine Respiratory: Auscultation: Minimal crackles at lung bases, no wheezing or rhonchi Cardiovascular: Regular rate and rhythm, S1-S2 present, no murmur, no peripheral edema. Abdomen: Soft, nondistended, positive bowel sound Musculoskeletal: No obvious joint deformity Skin: Incision site in the left lower extremity appears to be clean, no signs of infection Neuro: The patient is sedated, moving all extremities spontaneously when more awake Urinary Catheter Management: Diaz: Cath Placed During This Visit: yes, but has since been removed by the nurse Reason for Continuing Indwelling Catheter: Accurate Measurement of Urinary Output in Critically Ill Patients Urinary Catheter Date of Insertion: 11/26/21 Urinary Catheter Time of Insertion: 20:00 Date Urinary Catheter Removed: 11/30/21 Time Urinary Catheter Discontinued: 10:00 Data : 12/03/21 04:55 12/03/21 04:55 Micro: Microbiology 12/01/21 06:30 Gram Stain - Final Sputum - Endotracheal Tube Aspirate Sputum Culture - Final 12/02/21 09:45 Blood Culture - Preliminary Blood NEGATIVE TO DATE 12/02/21 09:50 Blood Culture - Preliminary Blood NEGATIVE TO DATE Other data: I have reviewed the patient's laboratory microbiologic and microbiologic data. A&P Assessment and plan (1) ARDS (adult respiratory distress syndrome): The patient has developed ARDS. This is likely secondary to aspiration event, septic shock, severe hemodynamic abnormalities . The patient is currently sedated with fentanyl propofol. Precedex was added to assist with reduction in propofol and fentanyl. The patient had excellent urine output. The chest x-ray revealed bilateral infiltrate which is more interstitial. This is likely due to the presence of underlying emphysema. At this point, we will continue with the supportive therapy. The patient is currently on PSV with an FiO2 of 60%. Her oxygen saturation is in the high 80s. The patient is able to follow simple commands intermittently. Given her underlying emphysema and 2 episodes of ARDS during this hospitalization, the patient is likely going to need time before her oxygen requirement comes down significantly. The patient is broadly covered with antibiotic and antifungal. Status: Acute (2) Acute ST segment elevation ID: The patient had suffered from acute ST elevated ID with occlusion of the left circumflex coronary artery. The patient received a drug-eluting stent earlier this morning. She had suffered from torsades prior to the detection of the acute ST elevated ID. The patient is currently on dual antiplatelet therapy with aspirin and Plavix. Status: Acute (3) Septic shock: The patient is currently requiring minimal amount of Levophed. The etiology of the septic shock is likely pneumonia or possible translocation of gut bacteria. The patient is on broad-spectrum antibiotic and antifungal. Status: Acute (4) History of lung cancer: The patient has history of lung cancer. No recent evidence of progression of disease. She has radiation-induced changes in the left upper lobe. Recent chest x-ray in September 2021 did not reveal any abnormalities other than emphysema. The patient is currently on Pulmicort and DuoNeb. No wheezing today or evidence of COPD exacerbation. Status: Acute (5) Thrombocytopenia: The thrombocytopenia has resolved. The patient is on Arixtra for DVT prophylaxis. She is receiving unit of blood today. 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 No evidence of wound infection. Overall, her prognosis is poor given multiple comorbidities. Continue the supportive therapy for the time being. The patient's mother was in the room and I have discussed her care plan with her. 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
[2021-12-03 13:33] LABS: ABG PCO2 35.2 mmHg (35-45); ABG PH Result 7.42 (7.35-7.45); Alveolar-Arterial Oxygen Gradi 62.5 mmHg (5-10); Arterial Blood Gas Hematocrit 24.8 % (37-47); Base Excess ABG -1.4 mmol/L (-2.0-2.0); Blood Gas Allen Test Pos; Blood Gas Operator Identificat GD; Blood Gas Sample Site Radial, left; Blood Gas Sample Type Arterial; Carboxyhemoglobin 1.4 %THgb (0.4-20.1); HCO3 ABG 22.8 mmol/L (22-26); HGB O2 Sat 83.5 % (95-100); Ionized Calcium Level - ABG 1.3 mmol/L (1.1-1.4); Methemoglobin 0.1 % (0.4-1.5); Oxygen Device VENT; Oxygen Saturation ABG 84.8; Potassium Level - ABG 3.4 mmol/L (3.5-5.0); Total Hemoglobin 8.1 g/dL (12-16)
[2021-12-03] MEDS: FUROsemide 10 mg/mL SDV 4mL 40 MG IVP ×2 (13:37→22:59)
[2021-12-03] MEDS: sodium chloride 0.9% (100 ml) 100 ML 50 ML (13:45)
--- NOTE | 2021-12-03 13:52 | PC.SOCIAL ---
IMM updated IMM dated and initialed, and copy placed in room. Pt still intubated at this time.
--- NOTE | 2021-12-03 13:55 | P.PN_ITS ---
Subjective Subjective: Patient is stable from cardiac standpoint. Still intubated Vitals/I&O/Wt Last Vital Signs Temp 99.8 F H 12/03/21 13:48 Pulse 87 12/03/21 13:48 Resp 16 12/03/21 13:48 BP 89/49 12/03/21 13:48 Pulse Ox 88 L 12/03/21 13:48 12/02/21 12/03/21 12/03/21 22:59 06:59 14:59 Intake Total 395.363 / 928.663 253.817 / 1182.480 654.885 / 654.885 Output Total 1724 1150 / 3160 Balance -1329.637 / -1081.337 -896.183 / -1977.520 654.885 / 654.885 Weight last 48 hrs Weight 125 lb 9.6 oz Weight 131 lb Physical Exam Narrative: GENERAL: Patient is intubated and sedated HEART: Regular rate and rhythm LUNGS: Decreased breath sounds ABDOMEN: Soft CENTRAL NERVOUS SYSTEM: Grossly nonfocal. [] EXTREMITIES: Lower extremities with 1+ edema bilaterally. Urinary Catheter Management: Diaz: Cath Placed During This Visit: yes, but has since been removed by the nurse Reason for Continuing Indwelling Catheter: Accurate Measurement of Urinary Output in Critically Ill Patients Urinary Catheter Date of Insertion: 11/26/21 Urinary Catheter Time of Insertion: 20:00 Date Urinary Catheter Removed: 11/30/21 Time Urinary Catheter Discontinued: 10:00 Data : 12/04/21 04:39 12/04/21 04:39 Micro: Microbiology 12/01/21 06:30 Gram Stain - Final Sputum - Endotracheal Tube Aspirate Sputum Culture - Final 12/02/21 09:45 Blood Culture - Preliminary Blood NEGATIVE TO DATE 12/02/21 09:50 Blood Culture - Preliminary Blood NEGATIVE TO DATE A&P Assessment and plan (1) Septic shock: Status: Acute (2) Acute ST segment elevation [place]: Status: Acute (3) ARDS (adult respiratory distress syndrome): Status: Acute (4) COPD (chronic obstructive pulmonary disease): Status: Acute (5) Hepatitis C: Status: Acute Qualifiers: Viral hepatitis chronicity: chronic Hepatic coma status: without hepatic coma Qualified Code(s): B18.2 - Chronic viral hepatitis C (6) Ventricular tachycardia: Status: Acute Plan Patient had polymorphic ventricular tachycardia earlier this morning and was shocked back to normal sinus rhythm. Duration of VT was brief. Subsequently she was intubated. ST elevations were noted on EKG in lateral leads. Cardiac Gas Or Water Meter Installer was emergently activated. Dr. Polk obtained consent prior to intubation from the patient and her mother was also called prior to the procedure. Patient underwent successful revascularization of total thrombotic occlusion of left circumflex artery with JOAQUIN x1. She was put on Aggrastat drip for 6 hours. Continue aspirin and plavix ECHO performed shows normal LV systolic function Patient is stable from cardiac standpoint but overall prognosis still guarded Thank you for involving us with care of this patient. We will continue to follow. Please call with questions. Attestations Medical Necessity Statement*: Care expected to cross 2 midnights Coding Level of Care Code Acute Shutdown Coordinator for g Fwd Diagnoses Septic shock A41.9; R65.[address] segment elevation [place] I21.3 ARDS (adult respiratory distress syndrome) J80 COPD (chronic obstructive pulmonary disease) J44.9 Hepatitis C B18.2 Viral hepatitis chronicity: chronic Hepatic coma status: without hepatic coma Ventricular tachycardia I47.2
[2021-12-03] MEDS: norepinephrine 8 MG in dextrose 5 % 500 ML 2 MG IV (14:18)
[2021-12-03 14:57] LABS: Anion Gap 15.3 (5-19); Blood Urea Nitrogen 37 mg/dL (6-20); Calcium 9.2 mg/dL (8.5-10.5); Carbon Dioxide 24 mmol/L (22-29); Chloride 107 mmol/L (98-107); Glucose 124 mg/dL (65-115); Osmolality Calculated 306 mOsm/kg (285-295); Potassium 3.3 mmol/L (3.5-5.1); Sodium 143 mmol/L (136-145)
[2021-12-03] MEDS: acetaminophen 325 mg Tablet 650 MG PO (15:41)
--- NOTE | 2021-12-03 16:05 | PM.PN ---
Subjective Subjective: Yesterday patient FiO2 on ventilator was brought DOWN TO 50%. TODAY MORNING ON EXAMINATION HAS BEEN PUT UP TO 60% AGAIN. SHE IS ON 5/10 PRESSURE SUPPORT. During the day her FiO2 requirements have gone up and is being to 80%. Hemoglobin has slightly trended down. T-max 100.6 Fahrenheit. Urine output of more than 3 L. On examination patient is on fentanyl 150, propofol at 50. During the day Precedex was added and fentanyl was turned down to 130 and propofol to 35. Medications: Reviewed: Yes Vitals/I&O/Wt Last Vital Signs Temp 100.6 F H 12/03/21 15:00 Pulse 101 H 12/03/21 15:41 Resp 20 H 12/03/21 15:41 BP 119/67 12/03/21 15:00 Pulse Ox 91 12/03/21 15:41 12/03/21 12/03/21 12/03/21 06:59 14:59 22:59 Intake Total 253.817 / 1182.480 902.894 / 902.894 59.098 / 961.992 Output Total 1150 / 3160 Balance -896.183 / -1977.520 882.894 / 882.894 59.098 / 941.992 Weight last 48 hrs Weight 56.971 kg Weight 59.421 kg Physical Exam Narrative: General: Intubated, sedated Cardio: Regular rate rhythm, normal S1-S2 Respiratory: B/l coarse crackles present GI: Abdomen soft, nontender, nondistended, bowel sounds + Extremities: no edema, no cyanosis.? Bandage left thigh appears clean.? No drainage noted.? Pulses present bilateral lower extremities.? Urinary Catheter Management: Diaz: Cath Placed During This Visit: yes, but has since been removed by the nurse Reason for Continuing Indwelling Catheter: Accurate Measurement of Urinary Output in Critically Ill Patients Urinary Catheter Date of Insertion: 11/26/21 Urinary Catheter Time of Insertion: 20:00 Date Urinary Catheter Removed: 11/30/21 Time Urinary Catheter Discontinued: 10:00 Data : 12/03/21 04:55 12/03/21 14:08 Micro: Microbiology 12/01/21 06:30 Gram Stain - Final Sputum - Endotracheal Tube Aspirate Sputum Culture - Final 12/02/21 09:45 Blood Culture - Preliminary Blood NEGATIVE TO DATE 12/02/21 09:50 Blood Culture - Preliminary Blood NEGATIVE TO DATE A&P Assessment and plan (1) Septic shock: Status: Acute (2) Acute ST segment elevation [place]: Status: Acute (3) Sepsis with acute hypoxic respiratory failure: Status: Acute (4) Acute respiratory distress syndrome (ARDS): Status: Acute (5) Pneumonia: Status: Acute (6) Aspiration into airway: Status: Acute (7) 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 Currently on noninvasive ventilation Status: Acute (10) Dysphagia: Status: Acute (11) Torsades de pointes: Keep magnesium over 2, potassium over 4. Monitor electrolytes. Medical reconciliation done for QT prolonging medications. Status: Acute (12) Goals of care, counseling/discussion: Status: Acute Plan Acute anterior wall SC: Post PCI to LCx. Finished tirofiban infusion. Continue with aspirin, Plavix, statin. Will repeat echocardiogram within next 24 hours. Septic shock: Component of cardiogenic and septic shock. Keep mean arterial pressure 65. Wean off Levophed accordingly. Repeat sputum culture. For now cover broadly with vancomycin, Levaquin. Add Zosyn again. Repeat blood culture. Switch from Solu-Medrol to hydrocortisone 50 mg every 6 hourly. Will wean off progressively. ARDS: Most likely secondary to a combination of aspiration pneumonitis versus pneumonia, possible TRALI post 3 unit blood transfusion, in a patient who is vaping dependent with a history of lung cancer post radiation. CTA negative for PE. Respiratory viral panel/COVID-19/influenza negative. Pneumocystis PCR negative MRSA positive. Ventilator settings as per ARDS protocol. Increase PEEP. DuoNebs every 4 hours, budesonide twice daily. Keep net negative to equal balance for now. Monitor for contraction alkalosis. Strict input output charting, daily weights. Fluid restriction up to 1500 cc. IV Lasix 40 mg twice daily. Plan to continue sedation with propofol and fentanyl for now. Appreciate pulmonology recommendations. Thrombocytopenia: Most likely secondary to sepsis. Hold off on Lovenox. Check for DIC panel, HIT panel. Monitor for bleeding. Acute blood loss anemia: Post 3 unit blood transfusion. Monitor hemoglobin. IV iron for over 1 g over 5 days. Anxiety: We will restart home anxiety medications once near to extubation. History of lung cancer post radiation therapy Hip fracture post-ORIF Hepatitis C Amphetamine abuse Analgesia: Propofol, fentanyl Glycemic control: Not needed Nutrition: NPO. If continues to remain intubated for next 24 hours we will start on tube feeds. CODE STATUS: F CODE STATUS discussed in detail with patient's DPOA/mother Ms. Anglin and her family at bedside. Family is okay with patient getting defibrillation, mechanical ventilation but is not okay with chest compressions. CODE STATUS changed to limited resuscitation to everything except chest compressions. PUD prophylaxis: Protonix DVT prophylaxis: SCDs. Hold off on Lovenox given thrombocytopenia. Discharge planning: Plan for LTAC versus SNF once recovers. Continue with care at ICU care Plan for the day: Continue with current antibiotics and fluconazole. Follow-up cultures. Transfuse 1 unit of PRBC for hemoglobin less than 8. Platelet count has stabilized. Continue with Arixtra. Wean down Levophed keeping mean arterial pressure over 65. Will monitor urine output and maybe give 1 more dose of Lasix during the day. Repeat chest x-ray reviewed. Continue with hydrocortisone at 50 mg every 12 hourly. Try to wean down sedation from fentanyl and propofol. Add Precedex. Restart home anxiety medication in preparation for possible extubation within next 24 to 48 hours if FiO2 requirements continue to trend down Attestations Medical Necessity Statement*: Requires further hospitalization for ARDS, septic shock in setting of recent acute anterior wall SC, aspiration pneumonitis follow-up patient was admitted for hip fracture, post-ORIF Critical Care Time: The high probability of a clinically significant, sudden or life threatening deterioration of the patient's [cardiology, pulmonology, neurology system(s) required my full and direct attention, intervention and personal management. The critical care time is as shown. 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
--- NOTE | 2021-12-03 16:12 | P.PN_ITS ---
Subjective Subjective: Patient remains intubated. Her stepmother and father are in the room today. Medications: Reviewed: Yes Vitals/I&O/Wt Last Vital Signs Temp 100.6 F H 12/03/21 15:00 Pulse 101 H 12/03/21 15:41 Resp 20 H 12/03/21 15:41 BP 119/67 12/03/21 15:00 Pulse Ox 91 12/03/21 15:41 12/03/21 12/03/21 12/03/21 06:59 14:59 22:59 Intake Total 253.817 / 1182.480 902.894 / 902.894 59.098 / 961.992 Output Total 1150 / 3160 Balance -896.183 / -1977.520 882.894 / 882.894 59.098 / 941.992 Weight last 48 hrs Weight 125 lb 9.6 oz Weight 131 lb Physical Exam Narrative: Patient remains intubated. Const: COMMON NORMALS: average body habitus GENERAL APPEARANCE: comfortable HENMT: COMMON NORMALS: normocephalic and atraumatic HEAD & SCALP: normal to inspection, normocephalic and atraumatic Extremity: LEFT LOWER EXTREMITY: Yes upper leg (Steri-Strips in place. No active drainage.) Left upper leg: Yes palpation (No fluctuance.) Urinary Catheter Management: Diaz: Cath Placed During This Visit: yes, but has since been removed by the nurse Reason for Continuing Indwelling Catheter: Accurate Measurement of Urinary Output in Critically Ill Patients Urinary Catheter Date of Insertion: 11/26/21 Urinary Catheter Time of Insertion: 20:00 Date Urinary Catheter Removed: 11/30/21 Time Urinary Catheter Discontinued: 10:00 Data : 12/03/21 04:55 12/03/21 14:08 Micro: Microbiology 12/01/21 06:30 Gram Stain - Final Sputum - Endotracheal Tube Aspirate Sputum Culture - Final 12/02/21 09:45 Blood Culture - Preliminary Blood NEGATIVE TO DATE 12/02/21 09:50 Blood Culture - Preliminary Blood NEGATIVE TO DATE A&P Assessment and plan (1) 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 This included takedown of nonunion. She continues with multiple medical issues and remains intubated in the intensive care unit. I will sign off unless needed. Her wound is benign. It is Steri-Stripped. She may be touchdown weightbearing when able to ambulate. Status: Acute Qualifiers: Fracture morphology: oblique Fracture alignment: displaced Qualified Code(s): S72.332K - Displaced oblique fracture of shaft of left femur, sub sequent encounter for closed fracture with nonunion (2) Pathological fracture of femur: Status: Acute Qualifiers: Pathology associated with fracture: neoplastic disease Encounter type: sequela Laterality: left Qualified Code(s): M84.552S - Pathological fracture in neoplastic disease, left femur, sequela Attestations Medical Necessity Statement*: Ongoing critical care. 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
[2021-12-03] MEDS: vancomycin 1,000 MG in sodium chloride 0.9% 250 ML 250 MG IV (18:29)
--- NOTE | 2021-12-03 18:43 | PC.NURSE ---
TAR vitals for a complete set of vital signs see Vital sign flow sheet.
--- NOTE | 2021-12-03 19:00 | PC.NURSE ---
Bedside report completed with JENA Sparks
--- NOTE | 2021-12-03 19:26 | PC.NURSE ---
Shift summary: Pt remains intubated and sedated. Sedation meds changed up, Precedex started. Fentany decreased, she did not tolerate that very well so final rate 130mcg/hr. Propofol decreased to 35mcg/. Vent settings changed today, Pressure support tired, was not tolerated she became tachycardic , tachypniec and )2 sats declined. She was switched back to MMV. Fio2 at end of shift 80%. She received a unit of PRBC. temp increased during, Dr aware. She would wave her hand around to indicate she was hot. Bathing and Shampooing provided for her comfort. Her left leg incision is well-approximated with no drainage. Steri-strips remain intact. OG clogged this am so it had to be changed out . After xray confirmation of placement, am meds given and tube feedings started. Per Dr Durant just trickle feed with flushes every 6hours. Urine output of 1150 this shift.
--- NOTE | 2021-12-03 20:03 | PC.NURSE ---
Pt thrashing in bed and pulling against soft wrist restraints. Oxygen saturation 79%. Propofol increased from 35 mcg/kg/min to 40 mcg/kg/min.
[2021-12-03] MEDS: propofol 1,000 MG/100 ML INJ 13.91 MG IV (22:59)
[2021-12-03] MEDS: dexmedeTOMIDine 0.9 % NaCL 400 MCG/100 ML PREMIX 17.09 MCG IV (23:25)
[2021-12-04] VITALS (73 sets, daily range): BP systolic 92–147; BP diastolic 53–79; PULSE 80–106; RESP 18–29; TEMP 37.1–39.6; O2SAT 82–98
--- NOTE | 2021-12-04 00:54 | PC.NURSE ---
A man named Jeanmarie De Luna called for an update on Tracy. I explained that he is not listed on Tracy's chart and apologized. I recommended that he have this addressed tomorrow when Tracy's mother is here and Tracy may be more awake. The gentleman became very angry and told me that I should not be allowed to care for Tracy if I don't know who he is. He then yelled, Clare, Clare, your fat a*s is gonna get fired, and hung up the phone.
[2021-12-04] MEDS: hydrocortisone 100 mg/2 mL SDV 50 MG IVP ×3 (01:06→17:26)
[2021-12-04] MEDS: chlorhexidine gluconate 4% Btl 118 mL 1 APPLIC TOPICAL (01:07)
--- NOTE | 2021-12-04 02:21 | PC.NURSE ---
Pt restless, taking deep breaths with high tidal volumes. Oxygen saturations 85-87%.
[2021-12-04] MEDS: ipratropium-albuterol 3 mL Neb INHALATION ×6 (03:08→23:10)
--- NOTE | 2021-12-04 03:24 | PC.NURSE ---
Pt not turned at this time. Ventilator changes have been made by respiratory therapy, and pt now resting quietly.
--- NOTE | 2021-12-04 04:04 | PC.NURSE ---
Pt's respiration irregular, and not synchronous with ventilator, but saturations are significantly improved since ventilator settings were changed by respiratory therapy. Pt becomes agitated when noise or movement is detected. She attempts to bite down on her ETT and pulls against soft wrist restraints.
[2021-12-04] MEDS: propofol 1,000 MG/100 ML INJ 13.91 MG IV ×3 (04:59→17:27)
[2021-12-04] MEDS: dexmedeTOMIDine 0.9 % NaCL 400 MCG/100 ML PREMIX 17.09 MCG IV ×4 (04:59→23:12)
[2021-12-04] MEDS: piperacillin-tazobactam 3.375 GM in sodium chloride 0.9% (plus) 50 ML IV ×3 (04:59→21:13)
[2021-12-04 05:29] LABS: Basophils % 0.2 %; Eosinophils % 0.2 %; Hematocrit 29.8 % (37.0-47.0); Hemoglobin 9.7 g/dL (11.5-15.3); Lymphocytes # 0.7 10^3/uL (0.8-4.8); Lymphocytes % 4.4 %; Mean Corpuscular HGB Conc 32.6 g/dL (30.0-36.0); Mean Corpuscular Hemoglobin 29.9 pg (28.0-34.0); Mean Platelet Volume 11.5 fL (7.4-10.4); Monocytes # 0.5 10^3/uL (0.2-0.9); Neutrophils # 14.48 10^3/uL (1.8-7.7); Neutrophils % 89.5 %; Nucleated Red Blood Cells % 0.2 %; Platelet Count 134 10^3/cmm (130-400); Red Blood Count 3.24 10^6/uL (4.1-5.3); White Blood Count 16.2 10^3/uL (4.0-10.0)
[2021-12-04 05:55] LABS: Alanine Aminotransferase 16 U/L (0-33); Alkaline Phosphatase 80 IU/L (35-105); Anion Gap 17.9 (5-19); Aspartate Amino Transferase 27 U/L (0-32); Blood Urea Nitrogen 39 mg/dL (6-20); Calcium 8.8 mg/dL (8.5-10.5); Carbon Dioxide 26 mmol/L (22-29); Chloride 105 mmol/L (98-107); Globulin 2.6 g/dL (1.3-4.6); Glucose 150 mg/dL (65-115); Osmolality Calculated 314 mOsm/kg (285-295); Sodium 146 mmol/L (136-145); Total Bilirubin 0.8 mg/dL (0.15-1.2); Total Protein 6.6 g/dL (6.6-8.7)
[2021-12-04 06:19] LABS: Potassium 2.9 mmol/L (3.5-5.1)
[2021-12-04] MEDS: budesonide 0.5 mg/2 mL Neb INHALATION ×2 (08:06→20:15)
[2021-12-04] MEDS: potassium chloride premix 40 MEQ/100 ML PREMIX 25 MEQ IV (08:48)
[2021-12-04] MEDS: buPROPion XL (24 HR) 150 mg Tablet PO (08:49)
[2021-12-04] MEDS: clopidogrel 75 mg Tablet PO (08:49)
[2021-12-04] MEDS: docusate sodium 100 mg Capsule PO ×2 (08:49→17:27)
[2021-12-04] MEDS: pantoprazole 40 mg SDV IVP ×2 (08:49→21:13)
[2021-12-04] MEDS: sertraline 100 mg Tablet PO (08:50)
[2021-12-04] MEDS: fondaparinux 2.5 mg/0.5 mL Syringe SUBCUT (08:52)
[2021-12-04] MEDS: aspirin 81 mg EC Tablet PO (08:53)
[2021-12-04] MEDS: chlorhexidine gluconate 0.12% Btl 473 mL 15 ML MUCOUS MEM ×2 (08:53→17:28)
[2021-12-04] MEDS: fluconazole premix 100 MG in empty flexible container 1 EACH 50 MG IV (09:24)
[2021-12-04] MEDS: rocuronium 10 mg/mL INJ 5mL IVP ×3 (09:29→18:28)
--- NOTE | 2021-12-04 09:36 | XR_ITS ---
WS: [id number] Exam: XR chest 1V portable [id number] Date/Time of Exam: 12/04/2021 9:36 AM Reason For Exam: Respiratory failure Comparison 12/03/2021. Again noted are interstitial infiltrates throughout both lungs showing little change since the prior study. The lungs remain fully inflated. No pleural effusion or pneumothorax. Heart size is top limits normal. Endotracheal tube ends about 5 cm above the jae. An enteric tube extends below the diaphr agm but the tip is not seen. Monitoring leads superimpose the chest. Fusion hardware in the lower C-s pine. Bony structures are intact. Left subclavian port ends in the lower one third of the SVC unchang ed in position. XR/XR chest 1V portable [id number] IMPRESSION: 1. Diffuse interstitial infiltrates in both lungs unchanged. 2. ET tube, left subclavian port in satisfactory position. An enteric tube exte nding below the diaphragm but the tip is not visible.
--- NOTE | 2021-12-04 10:40 | PC.CHAP ---
Pastoral Care Encounter/Spiritual Assessment Type of Contact [] Declined boat garnisher visit [] Patient/Family/Request visit [] Outpatient visit [] Follow-up visit [] Physician referral [] Code/Alert [x] Routine visit [] Staff referral [] Actively dying [x] Patient sleeping [x] Family support [] [] Out of room [] Palliative care [] [] Receiving care in room [] Pre-surgical visit [] Trauma [] Long length of stay [x] ICU visit [] Other: Relational/Emotional Strength [] Patient feels connected with others/family/visitors/staff [] Distress [] Loneliness/isolation [] Abandonment Spirituality of Patient [] Person of Allison [] Attends Islam of their Allison [] Believes in Prayer [] Reads Bible or Muslim materials [] There are Spiritual issues to be addressed Foreign Collection Clerk Interventions [x] Prayer [] Active listening [] Non-anxious presence [] Spiritual/emotional support [] Crisis/trauma care [] Spiritual counseling [] Bereavement support [] Provided bereavement packet [] Provided Bible/devotional materials [] Provided toy/stuffed animal, coloring book to patient or family member [] Provided Communion [] Anointing/[place] [] Salvation [x] Completed spiritual assessment [] Other: Impact on Illness or Injury [] Angry [] Fearful [] Anxious [] Often cries [] Exhaustion [] Unable to work [] Unable to attend restoration [] Unable to walk/stand [] Unable to read [] Unable to drive [] Unable to eat/drink [] Unable to sleep [] Unable to be with family [] Patient intubated [] Other: Summary Time spent with patient
--- NOTE | 2021-12-04 11:35 | PM.PN ---
Subjective Subjective: Patient is stable from cardiac standpoint. On minimal pressor support Vitals/I&O/Wt Last Vital Signs Temp 98.9 F 12/04/21 10:00 Pulse 84 12/04/21 11:15 Resp 22 H 12/04/21 11:17 BP 112/61 12/04/21 10:00 Pulse Ox 93 12/04/21 11:17 12/03/21 12/04/21 12/04/21 22:59 06:59 14:59 Intake Total 975.375 / 1878.269 529.613 / 2407.882 408.740 / 408.740 Output Total 465 / 1435 1450 / 2885 Balance 510.375 / 443.269 -920.387 / -477.118 408.740 / 408.740 Weight last 48 hrs Weight 123 lb 3.2 oz Weight 125 lb 9.6 oz Physical Exam Narrative: GENERAL: Patient is intubated and sedated HEART: Regular rate and rhythm LUNGS: Decreased breath sounds ABDOMEN: Soft CENTRAL NERVOUS SYSTEM: Grossly nonfocal. [] EXTREMITIES: Lower extremities with 1+ edema bilaterally. Urinary Catheter Management: Diaz: Cath Placed During This Visit: yes, but has since been removed by the nurse Reason for Continuing Indwelling Catheter: Accurate Measurement of Urinary Output in Critically Ill Patients Urinary Catheter Date of Insertion: 11/26/21 Urinary Catheter Time of Insertion: 20:00 Date Urinary Catheter Removed: 11/30/21 Time Urinary Catheter Discontinued: 10:00 Data : 12/05/21 03:17 12/05/21 03:17 Micro: Microbiology 12/01/21 06:30 Gram Stain - Final Sputum - Endotracheal Tube Aspirate Sputum Culture - Final 12/02/21 09:45 Blood Culture - Preliminary Blood NEGATIVE TO DATE 12/02/21 09:50 Blood Culture - Preliminary Blood NEGATIVE TO DATE A&P Assessment and plan (1) Septic shock: Status: Acute (2) Acute ST segment elevation [place]: Status: Acute (3) ARDS (adult respiratory distress syndrome): Status: Acute (4) COPD (chronic obstructive pulmonary disease): Status: Acute (5) Hepatitis C: Status: Acute Qualifiers: Viral hepatitis chronicity: chronic Hepatic coma status: without hepatic coma Qualified Code(s): B18.2 - Chronic viral hepatitis C (6) Ventricular tachycardia: Status: Acute Plan Patient had polymorphic ventricular tachycardia earlier this morning and was shocked back to normal sinus rhythm. Duration of VT was brief. Subsequently she was intubated. ST elevations were noted on EKG in lateral leads. Cardiac Pediatric Ophthalmologist was emergently activated. Dr. Polk obtained consent prior to intubation from the patient and her mother was also called prior to the procedure. Patient underwent successful revascularization of total thrombotic occlusion of left circumflex artery with JOAQUIN x1. She was put on Aggrastat drip for 6 hours. Continue aspirin and plavix ECHO performed shows normal LV systolic function Still requiring pressor support. Will recommend downtitrating diuretics. Thank you for involving us with care of this patient. We will continue to follow. Please call with questions. Attestations Medical Necessity Statement*: Care expected to cross 2 midnights. Coding Level of Care Code Acute Second Facing Baster for allen Laughlind Diagnoses Septic shock A41.9; R65.[address] segment elevation [place] I21.3 ARDS (adult respiratory distress syndrome) J80 COPD (chronic obstructive pulmonary disease) J44.9 Hepatitis C B18.2 Viral hepatitis chronicity: chronic Hepatic coma status: without hepatic coma Ventricular tachycardia I47.2
[2021-12-04] MEDS: FUROsemide 10 mg/mL SDV 4mL 40 MG IVP (13:25)
--- NOTE | 2021-12-04 13:51 | PM.MISC ---
Miscellaneous Note Purpose of Documentation: Remote following Note: I am reviewing progress notes awaiting the patient's extubation and possible ability to participate with physical therapy. At this point, unless her orthopedic complications, I will sign off from the patient.
[2021-12-04 13:56] LABS: ABG PH Result 7.41 (7.35-7.45); Blood Gas Allen Test Pos; Blood Gas Operator Identificat CAK; Blood Gas Sample Site Radial, left; Blood Gas Sample Type Arterial; Ionized Calcium Level - ABG 1.2 mmol/L (1.1-1.4); Oxygen Device VENT; Potassium Level - ABG 3.4 mmol/L (3.5-5.0)
--- NOTE | 2021-12-04 14:02 | P.PN_ITS ---
Subjective Subjective: Intubated and sedated. Mother at bedside. Discussed in detail. Desaturating. FiO2 100%. Desatted down to 88% while I was bedside. WBC 16,000. Vitals/I&O/Wt Last Vital Signs Temp 98.9 F 12/04/21 12:00 Pulse 84 12/04/21 12:00 Resp 23 H 12/04/21 13:02 BP 112/61 12/04/21 12:00 Pulse Ox 93 12/04/21 12:00 12/03/21 12/04/21 12/04/21 22:59 06:59 14:59 Intake Total 975.375 / 1878.269 529.613 / 2407.882 408.740 / 408.740 Output Total 465 / 1435 1450 / 2885 0 / 0 Balance 510.375 / 443.269 -920.387 / -477.118 408.740 / 408.740 Weight last 48 hrs Weight 55.883 kg Weight 56.971 kg Physical Exam Narrative: General: Intubated, sedated Cardio: Regular rate rhythm, normal S1-S2 Respiratory: B/l coarse crackles present GI: Abdomen soft, nontender, nondistended, bowel sounds + Extremities: no edema, no cyanosis.? Bandage left thigh appears clean.? No drainage noted.? Pulses present bilateral lower extremities.? Urinary Catheter Management: Diaz: Cath Placed During This Visit: yes, but has since been removed by the nurse Reason for Continuing Indwelling Catheter: Accurate Measurement of Urinary Output in Critically Ill Patients Urinary Catheter Date of Insertion: 11/26/21 Urinary Catheter Time of Insertion: 20:00 Date Urinary Catheter Removed: 11/30/21 Time Urinary Catheter Discontinued: 10:00 Data : 12/04/21 04:39 12/04/21 04:39 Micro: Microbiology 12/01/21 06:30 Gram Stain - Final Sputum - Endotracheal Tube Aspirate Sputum Culture - Final 12/02/21 09:45 Blood Culture - Preliminary Blood NEGATIVE TO DATE 12/02/21 09:50 Blood Culture - Preliminary Blood NEGATIVE TO DATE A&P Assessment and plan (1) Ventricular tachycardia: Status: Acute (2) Thrombocytopenia: Status: Acute (3) Goals of care, counseling/discussion: Status: Acute (4) Torsades de pointes: Status: Acute (5) History of lung cancer: Status: Acute (6) Septic shock: Status: Acute (7) Acute ST segment elevation [place]: Status: Acute (8) ARDS (adult respiratory distress syndrome): Status: Acute (9) Encounter for postoperative care: Status: Acute (10) Sepsis with acute hypoxic respiratory failure: Status: Acute (11) Diuretic-induced hypokalemia: Status: Acute (12) Acute respiratory distress syndrome (ARDS): Status: Acute (13) Ventilator dependent: Status: Acute (14) Dysphagia: Status: Acute (15) Pneumonia: Status: Acute (16) Aspiration into airway: Status: Acute (17) 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: Status: Acute Qualifiers: Fracture morphology: oblique Fracture alignment: displaced Qualified Code(s): S72.332K - Displaced oblique fracture of shaft of left femur, subseque nt encounter for closed fracture with nonunion (18) COPD (chronic obstructive pulmonary disease): Status: Acute (19) Hepatitis C: Status: Acute Qualifiers: Viral hepatitis chronicity: chronic Hepatic coma status: without hepatic coma Qualified Code(s): B18.2 - Chronic viral hepatitis C (20) Internal derangement of left knee: Status: Acute (21) Left upper lobe pulmonary infiltrate: Status: Acute (22) Pathological fracture of femur: Status: Acute Qualifiers: Pathology associated with fracture: neoplastic disease Encounter type: sequela Laterality: left Qualified Code(s): M84.552S - Pathological fracture in neoplastic disease, left femur, sequela (23) Restless legs syndrome: Status: Acute (24) Screening for colon cancer: Status: Acute (25) Lung cancer: Status: Acute Plan #Vent dependent acute hypoxic respiratory failure #Left vocal cord paralysis on Neck CT #ARDS #Possible aspiration pneumonia vs post op pneumonia #Vaping dependence #Methamphetamine abuse #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 Levophed has been weaned off. ? Repeat sputum culture ? Continue vancomycin Levaquin, Zosyn ? Repeat blood culture pending - Hydrocortisone 50 every 6 hours -Continue Lasix 40 twice daily ? Continue propofol and fentanyl. Wean off as able ? DIC panel, HIT panel ordered. Thrombocytopenia most likely sepsis. Lovenox was stopped. on arixtra for DVT prophylaxis. -IV iron 1 g over 5 days ordered. She is status post 3 units blood transfusion -Rocuronium to be given today for paralysis. Consider tracheostomy in next few days if patient does not improve. Drips: Propofol, fentanyl, precedex Nutrition: NPO.? We will start tube feeds today. CODE STATUS: F CODE STATUS discussed in detail with patient's DPOA/mother Ms. Anglin. Family is okay with patient getting defibrillation, mechanical ventilation but is not okay with chest compressions.? CODE STATUS changed to limited resuscitation to everything except chest compressions by Dr. Elizalde. I had another discussion with mom today. She states she is not interested in tracheostomy either due to risk of bleeding since patient is on blood thinner since her myocardial infarction. She was also asking about comfort measures and possibly stopping treatment. We had a long discussion and it was decided to continue treatment for now and see how patient does in the next few days. PUD prophylaxis: Protonix DVT prophylaxis: SCDs.? Hold off on Lovenox given thrombocytopenia. Discharge planning: Plan for LTAC versus SNF once recovers. Continue with care at ICU care Attestations Medical Necessity Statement*: Requires further hospitalization for ARDS, septic shock in setting of recent acute anterior wall IN, aspiration pneumonitis follow-up patient was admitted for hip fracture, post-ORIF Coding Level of Care Code Acute Biscuit Machine Operator for [facility] Fwd Diagnoses Ventricular tachycardia I47.2 Thrombocytopenia D69.6 Goals of care, counseling/discussion Z71.89 Torsades de pointes I47.2 History of lung cancer Z85.118 Septic shock A41.9; R65.[address] segment elevation [place] I21.3 ARDS (adult respiratory distress syndrome) J80 Encounter for postoperative care Z48.89 Sepsis with acute hypoxic respiratory failure A41.9; R65.20; J96.01 Diuretic-induced hypokalemia E87.6; T50.2X5A Acute respiratory distress syndrome (ARDS) J80 Ventilator dependent Z99.11 Dysphagia R13.10 Pneumonia J18.9 Aspiration into airway T17.908A 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
--- NOTE | 2021-12-04 15:14 | PC.NUTR ---
TF consult received. Agree with current recommendation of Pulmocare 1.2 starting at 10 mls/hr and increasing 10 mls Q8H as tolerated until goal rate of 40 mls/hr is reached. However recommend consideration of flushes 150 mls Q4H to meet Pt's estimated fluid need. Details in RD assessment.
--- NOTE | 2021-12-04 15:51 | P.PN_ITS ---
Subjective Subjective: The patient was seen and examined. Unfortunately, her oxygen requirement continues to be high. The patient is currently on 90% FiO2. the patient was asynchronous with the ventilator this morning and her oxygen saturation was in the low 80s. She needed one-time dose of rocuronium. Chest x-ray this morning did not reveal any significant change. The patient had good urine output. She has nonoliguric RUBIN likely secondary to the cardiac event that she sustained few days ago. Vitals/I&O/Wt Last Vital Signs Temp 98.9 F 12/04/21 12:00 Pulse 87 12/04/21 15:27 Resp 19 H 12/04/21 15:30 BP 112/61 12/04/21 14:00 Pulse Ox 95 12/04/21 15:30 12/04/21 12/04/21 12/04/21 06:59 14:59 22:59 Intake Total 529.613 / 2407.882 508.740 / 508.740 Output Total 1450 / 2885 0 / 0 Balance -920.387 / -477.118 508.740 / 508.740 Weight last 48 hrs Weight 123 lb 3.2 oz Weight 125 lb 9.6 oz Physical Exam Narrative: General: Patient is intubated and sedated Neck: Unable to assess JVD as the patient is supine Respiratory: Auscultation: Minimal crackles at lung bases, no wheezing, occasional rhonchi Cardiovascular: Regular rate and rhythm, S1-S2 present, no murmur, no peripheral edema. Abdomen: Soft, nondistended, positive bowel sound Skin: Incision site in the left lower extremity appears to be clean, no signs of infection Neuro: The patient is sedated, unable to assess Urinary Catheter Management: Diaz: Cath Placed During This Visit: yes, but has since been removed by the nurse Reason for Continuing Indwelling Catheter: Accurate Measurement of Urinary Output in Critically Ill Patients Urinary Catheter Date of Insertion: 11/26/21 Urinary Catheter Time of Insertion: 20:00 Date Urinary Catheter Removed: 11/30/21 Time Urinary Catheter Discontinued: 10:00 Data : 12/04/21 04:39 12/04/21 04:39 Other data: I have reviewed the patient's laboratory, microbiologic and radiologic data A&P Assessment and plan (1) ARDS (adult respiratory distress syndrome): The patient has developed ARDS. This is likely secondary to aspiration event, septic shock, severe hemodynamic abnormalities . The patient is currently sedated with fentanyl propofol. Precedex was added to assist with reduction in propofol and fentanyl. The patient had excellent urine output. Unfortunately, reduction of sedation was difficult as the patient was more awake she became tachypneic followed by air trapping and worsening hypoxemia. She does have underlying emphysema and although she never had a pulmonary function test, the flow-volume loop on the ventilator on PSV was suggestive of significant airflow obstruction. At this point, if she does not make significant recovery over the next few days, she may need tracheostomy for better controlling of her sedation as well as reduction of risk of infection. I have discussed this with her daughter. We will continue to have the conversation with the patient's family. Status: Acute (2) Acute ST segment elevation [place]: The patient had suffered from acute ST elevated [place] with occlusion of the left circumflex coronary artery. The patient received a drug-eluting stent earlier this morning. She had suffered from torsades prior to the detection of the acute ST elevated [place]. The patient is currently on dual antiplatelet therapy with aspirin and Plavix. Status: Acute (3) Septic shock: The patient is currently requiring minimal amount of Levophed. The etiology of the septic shock is likely pneumonia or possible translocation of gut bacteria. The patient is on broad-spectrum antibiotic. I have discontinued the ant ifungal. I have cut down the dose of hydrocortisone to 50 daily. Status: Acute (4) History of lung cancer: The patient has history of lung cancer. No recent evidence of progression of disease. She has radiation-induced changes in the left upper lobe. Recent chest x-ray in September 2021 did not reveal any abnormalities other than emphysema. The patient is currently on Pulmicort and DuoNeb. No wheezing today or evidence of COPD exacerbation. Status: Acute (5) Thrombocytopenia: The thrombocytopenia has largely resolved. She is on fondaparinux. 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 No evidence of wound infection. Overall, her prognosis is poor given multiple comorbidities. Continue the supportive therapy for the time being. 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
--- NOTE | 2021-12-04 16:47 | PC.OT ---
OT TREATMENT HELD PATIENT IS CURRENTLY ON VENT AND UNABLE TO PARTICIPATE IN TREATMENT.
--- NOTE | 2021-12-04 21:16 | PC.NURSE ---
Levophed infusing at 2 mcg/kg/min prior to this shift.
[2021-12-04] MEDS: acetaminophen 325 mg Tablet 650 MG PO (21:43)
--- NOTE | 2021-12-04 22:01 | PC.NURSE ---
Dr. Shields notified of temp no new orders. Pt's EVA hose removed, excess pillows removed. Cool rag placed on pt's forehead, fan turned on directed at pt.
[2021-12-05] VITALS (50 sets, daily range): BP systolic 97–131; BP diastolic 52–76; PULSE 75–99; RESP 16–30; TEMP 36.9–38.3; O2SAT 85–95
[2021-12-05] MEDS: FUROsemide 10 mg/mL SDV 4mL 40 MG IVP ×2 (00:01→23:15)
[2021-12-05] MEDS: chlorhexidine gluconate 4% Btl 118 mL 1 APPLIC TOPICAL (00:02)
--- NOTE | 2021-12-05 00:26 | PC.NURSE ---
Following oral care, repositioning, and application of bilateral foot pumps, pt sat up in bed, began pulling on her restraints and kicking her legs. Pt was attempting to bite tube and thrashing her head about in bed. Sedation increased. Paralytic not used due to lack of sedation. Oxygen saturation decreased to 74%. O2 breaths given, pt began to settle. Oxygen saturation increased to 90%. Pt now resting comfortably.
[2021-12-05] MEDS: propofol 1,000 MG/100 ML INJ 17.39 MG IV ×4 (01:01→16:24)
--- NOTE | 2021-12-05 02:21 | PC.NURSE ---
TEDS removed due to fever
[2021-12-05 03:46] LABS: Basophils % 0.1 %; Eosinophils % 0.1 %; Hematocrit 30.4 % (37.0-47.0); Hemoglobin 9.7 g/dL (11.5-15.3); Mean Corpuscular HGB Conc 31.9 g/dL (30.0-36.0); Mean Corpuscular Hemoglobin 29.8 pg (28.0-34.0); Mean Corpuscular Volume 93.5 fl (81-99); Mean Platelet Volume 11.1 fL (7.4-10.4); Monocytes # 0.6 10^3/uL (0.2-0.9); Neutrophils # 17.48 10^3/uL (1.8-7.7); Neutrophils % 89.6 %; Nucleated Red Blood Cells % 0.1 %; Platelet Count 157 10^3/cmm (130-400); Red Blood Count 3.25 10^6/uL (4.1-5.3); Red Cell Distribution Width 17.2 % (12.1-15.1); White Blood Count 19.5 10^3/uL (4.0-10.0)
[2021-12-05] MEDS: ipratropium-albuterol 3 mL Neb INHALATION ×5 (03:47→19:56)
[2021-12-05 04:00] LABS: ABG PCO2 54.8 mmHg (35-45); ABG PH Result 7.37 (7.35-7.45); Alveolar-Arterial Oxygen Gradi 67.4 mmHg (5-10); Arterial Blood Gas Hematocrit 31.2 % (37-47); Base Excess ABG 5.4 mmol/L (-2.0-2.0); Blood Gas Allen Test Pos; Blood Gas Sample Site Radial, right; Blood Gas Sample Type Arterial; Carboxyhemoglobin 1.4 %THgb (0.4-20.1); HCO3 ABG 31.8 mmol/L (22-26); HGB O2 Sat 90.5 % (95-100); Ionized Calcium Level - ABG 1.1 mmol/L (1.1-1.4); Methemoglobin 0.1 % (0.4-1.5); Oxygen Device VENT; Oxygen Saturation ABG 91.9; PO2 ABG 60.4 mmHg (80.0-100.0); Potassium Level - ABG 2.4 mmol/L (3.5-5.0); Total Hemoglobin 10.2 g/dL (12-16)
[2021-12-05 04:01] LABS: Magnesium 2.3 mg/dL (1.7-2.3); Phosphorus 3.2 mg/dL (2.5-4.5)
[2021-12-05 04:05] LABS: Alanine Aminotransferase 10 U/L (0-33); Albumin Level 3.6 g/dL (3.5-5.2); Alkaline Phosphatase 79 IU/L (35-105); Anion Gap 14.3 (5-19); Aspartate Amino Transferase 20 U/L (0-32); Blood Urea Nitrogen 37 mg/dL (6-20); Calcium 8.4 mg/dL (8.5-10.5); Carbon Dioxide 31 mmol/L (22-29); Chloride 107 mmol/L (98-107); Globulin 3.3 g/dL (1.3-4.6); Glucose 139 mg/dL (65-115); Osmolality Calculated 321 mOsm/kg (285-295); Sodium 150 mmol/L (136-145); Total Bilirubin 0.5 mg/dL (0.15-1.2); Total Protein 6.9 g/dL (6.6-8.7)
[2021-12-05 04:13] LABS: Creatinine Clr Calc Pharmacy 56.6675
[2021-12-05 04:14] LABS: Potassium 2.3 mmol/L (3.5-5.1)
[2021-12-05] MEDS: lidocaine 1% 5 ML in potassium chloride premix 100 ML 25 ML IV (04:56)
[2021-12-05] MEDS: piperacillin-tazobactam 3.375 GM in sodium chloride 0.9% (plus) 50 ML IV ×3 (04:57→21:18)
[2021-12-05 05:06] LABS: Heparin Induced Platelet AB NEGATIVE (NEGATIVE); Patient O.D 0.046
[2021-12-05] MEDS: dexmedeTOMIDine 0.9 % NaCL 400 MCG/100 ML PREMIX 17.09 MCG IV ×4 (05:08→22:28)
--- NOTE | 2021-12-05 06:00 | XR_ITS ---
WS: [id number] Exam: XR chest 1V portable [id number] Date/Time of Exam: 12/05/2021 6:00 AM Reason For Exam: intubated Comparison 12/04/2021. Widespread interstitial infiltrates noted bilaterally without significant change. Normal cardiomedias tinal silhouette. ET tube ends about 5 cm above the jae in good position. An enteric tube ends in the body the stomach. Left-sided subclavian port ends at the cavoatrial junction. No pneumothorax. No pleural effusion. Fusion hardware noted in the lower C-spine. Left apical pleural thickening. XR/XR chest 1V portable [id number] IMPRESSION: 1. Bilateral interstitial infiltrates unchanged. 2. ET tube and left subclavian port of both in satisfactory location without ch chidi. 2. Enteric tube ending in the body the stomach. The tube has been retracted sl ightly since prior study. The tube could be advanced another 3 to 4 cm for opti mal position.
[2021-12-05] MEDS: budesonide 0.5 mg/2 mL Neb INHALATION ×2 (07:47→19:56)
--- NOTE | 2021-12-05 08:01 | PC.SOCIAL ---
IMM not given Pt is still intubated. IMM not given. Pt is not expected to d/c within 24-48hrs.
[2021-12-05] MEDS: clopidogrel 75 mg Tablet PO (09:27)
[2021-12-05] MEDS: aspirin 81 mg EC Tablet PO (09:28)
[2021-12-05] MEDS: sertraline 100 mg Tablet PO (09:28)
[2021-12-05] MEDS: pantoprazole 40 mg SDV IVP ×2 (09:28→21:18)
[2021-12-05] MEDS: buPROPion XL (24 HR) 150 mg Tablet PO (09:28)
[2021-12-05] MEDS: docusate sodium 100 mg Capsule PO (09:28)
[2021-12-05] MEDS: chlorhexidine gluconate 0.12% Btl 473 mL 15 ML MUCOUS MEM (09:30)
[2021-12-05] MEDS: fondaparinux 2.5 mg/0.5 mL Syringe SUBCUT (09:58)
[2021-12-05] MEDS: potassium chloride premix 100 ML 25 MEQ IV (11:31)
--- NOTE | 2021-12-05 11:51 | P.PN_ITS ---
Subjective Subjective: No significant changes. Still on levophed Vitals/I&O/Wt Last Vital Signs Temp 98.4 F 12/05/21 10:00 Pulse 75 12/05/21 11:27 Resp 16 12/05/21 11:31 BP 113/67 12/05/21 10:00 Pulse Ox 93 12/05/21 11:31 12/04/21 12/05/21 12/05/21 22:59 06:59 14:59 Intake Total 796.912 / 1305.652 478.977 / 1784.629 195.355 / 195.355 Output Total 2100 / 2100 1600 / 3700 0 / 0 Balance -1303.088 / -794.348 -1121.023 / -1915.371 195.355 / 195.355 Weight last 48 hrs Weight 123 lb 3.2 oz Physical Exam Narrative: GENERAL: Patient is intubated and sedated HEART: Regular rate and rhythm LUNGS: Decreased breath sounds ABDOMEN: Soft CENTRAL NERVOUS SYSTEM: Grossly nonfocal. [] EXTREMITIES: Lower extremities with 1+ edema bilaterally. Urinary Catheter Management: Diaz: Cath Placed During This Visit: yes, but has since been removed by the nurse Reason for Continuing Indwelling Catheter: Accurate Measurement of Urinary Output in Critically Ill Patients Urinary Catheter Date of Insertion: 11/26/21 Urinary Catheter Time of Insertion: 20:00 Date Urinary Catheter Removed: 11/30/21 Time Urinary Catheter Discontinued: 10:00 Data : 12/05/21 03:17 12/05/21 14:00 A&P Assessment and plan (1) Septic shock: Status: Acute (2) Acute ST segment elevation [place]: Status: Acute (3) ARDS (adult respiratory distress syndrome): Status: Acute (4) COPD (chronic obstructive pulmonary disease): Status: Acute (5) Hepatitis C: Status: Acute Qualifiers: Viral hepatitis chronicity: chronic Hepatic coma status: without hepatic coma Qualified Code(s): B18.2 - Chronic viral hepatitis C (6) Ventricular tachycardia: Status: Acute Plan Patient had polymorphic ventricular tachycardia and was shocked back to normal sinus rhythm on 12/01. Duration of VT was brief. Subsequently she was intubated. ST elevations were noted on EKG in lateral leads. Cardiac Pastry Cook Apprentice was emergently activated. Dr. Polk obtained consent prior to intubation from the patient and her mother was also called prior to the procedure. Patient underwent successful revascularization of total thrombotic occlusion of left circumflex artery with JOAQUIN x1. Continue aspirin and plavix ECHO performed shows normal LV systolic function On levophed. Thank you for involving us with care of this patient. We will continue to follow. Please call with questions. Attestations Medical Necessity Statement*: Care expected to cross 2 midnights. Coding Level of Care Code Acute Social Sciences Lecturer for [facility] Fwd Diagnoses Septic shock A41.9; R65.[address] segment elevation [place] I21.3 ARDS (adult respiratory distress syndrome) J80 COPD (chronic obstructive pulmonary disease) J44.9 Hepatitis C B18.2 Viral hepatitis chronicity: chronic Hepatic coma status: without hepatic coma Ventricular tachycardia I47.2
--- NOTE | 2021-12-05 12:57 | P.PN_ITS ---
Subjective Subjective: The patient was seen and examined this morning. She is intubated and sedated. Oxygen saturation was in the mid 90s on volume control mechanical ventilation with an FiO2 of 90%. I was able to drop it down to 80%. Chest x-ray this morning revealed bilateral infiltrate which is similar to before. Her white count is mildly elevated. No fever. The patient had excellent diuresis. There is also probably complaint of post ATN diuresis. She is starting to become hypernatremic likely secondary to free water loss with diuresis. The patient is on minimal amount of Levophed, Which can be turned off. Vitals/I&O/Wt Last Vital Signs Temp 98.4 F 12/05/21 10:00 Pulse 75 12/05/21 11:27 Resp 16 12/05/21 11:31 BP 113/67 12/05/21 10:00 Pulse Ox 93 12/05/21 11:31 12/04/21 12/05/21 12/05/21 22:59 06:59 14:59 Intake Total 796.912 / 1305.652 478.977 / 1784.629 195.355 / 195.355 Output Total 2100 / 2100 1600 / 3700 0 / 0 Balance -1303.088 / -794.348 -1121.023 / -1915.371 195.355 / 195.355 Weight last 48 hrs Weight 123 lb 3.2 oz Physical Exam Narrative: General: Patient is intubated and sedated Neck: Unable to assess JVD as the patient is supine Respiratory: Auscultation: Minimal crackles at lung bases, no wheezing, occasional rhonchi Cardiovascular: Regular rate and rhythm, S1-S2 present, no murmur, no peripheral edema. Abdomen: Soft, nondistended, positive bowel sound Skin: Incision site in the left lower extremity appears to be clean, no signs of infection Neuro: The patient is sedated, unable to assess Urinary Catheter Management: Diaz: Cath Placed During This Visit: yes, but has since been removed by the nurse Reason for Continuing Indwelling Catheter: Accurate Measurement of Urinary Output in Critically Ill Patients Urinary Catheter Date of Insertion: 11/26/21 Urinary Catheter Time of Insertion: 20:00 Date Urinary Catheter Removed: 11/30/21 Time Urinary Catheter Discontinued: 10:00 Data : 12/05/21 03:17 12/05/21 03:17 Other data: I have reviewed the patient's laboratory, microbiologic and radiologic data. Her hemoglobin stable. Mildly elevated white blood cell count. The patient is developing hyponatremia and hypokalemia in the setting of diuretics. A&P Assessment and plan (1) ARDS (adult respiratory distress syndrome): The patient has developed ARDS. This is likely secondary to aspiration event, septic shock, severe hemodynamic abnormalities . Chest x-ray revealed persistent bilateral infiltrate. I believe the persistence of the infiltrate is likely related to her underlying emphysematous changes. A previous bronchoscopic evaluation including extensive microbiologic work-up that included PCP PCR which was all negative. Currently the patient is on Zosyn only. We will stop this after a week of therapy. Unless, there are new changes in that case she will need a repeat bronchoscopic evaluation for microbiologic work-up. She is at high risk of developing hospital acquired infections. Unfortunately, her progress has been very slow. She is still on 80% oxygen. Any attempt to reduce her sedation has resulted in her becoming tachypneic complicated by air trapping and worsening hypoxemia. The patient will likely need tracheostomy. Status: Acute (2) Electrolyte abnormality: The patient has developed hyponatremia and hypokalemia in the setting of diuresis. We will to hold off on the Lasix for today. The patient is more than 2 L negative in the past 24 hours. There is also likely component of post ATN diuresis. The patient has received potassium supplement. I am going to repeat a BMP later today. I am starting her on 300 cc of free water flush every 6 hours. We are also going to go up on the tube feed. Status: Acute (3) Acute ST segment elevation [place]: The patient had suffered from acute ST elevated [place] with occlusion of the left circumflex coronary artery. The patient received a drug-eluting stent earlier this morning. She had suffered from torsades prior to the detection of the acute ST elevated [place]. The patient is currently on dual antiplatelet therapy with aspirin and Plavix. Hemoglobin stable. Status: Acute (4) Septic shock: The patient is currently requiring minimal amount of Levophed. The etiology of the septic shock is likely pneumonia or possible translocation of gut bacteria. The shock has essentially resolved at this point. Status: Acute (5) History of lung cancer: The patient has history of lung cancer. No recent evidence of progression of disease. She has radiation-induced changes in the left upper lobe. Recent chest x-ray in September 2021 did not reveal any abnormalities other than emphysema. The patient is currently on Pulmicort and DuoNeb. No wheezing today or evidence of COPD exacerbation. Status: Acute (6) Thrombocytopenia: The thrombocytopenia has largely resolved. She is on fondaparinux. We will follow-up on the HIT panel. 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 No evidence of wound infection. Overall, her prognosis is poor given multiple comorbidities. Continue the supportive therapy for the time being. 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
--- NOTE | 2021-12-05 12:59 | P.PN_ITS ---
Subjective Subjective: FiO2 weaned down to 80%. Saturating 93%. Her blood pressure was little soft and Levophed was restarted. Nothing much change since yesterday except we were able to come down a little bit on the FiO2. Urine output 2 L in last 24 hours. White count 19.5. Potassium 2.3 this morning. Vitals/I&O/Wt Last Vital Signs Temp 98.4 F 12/05/21 10:00 Pulse 75 12/05/21 11:27 Resp 16 12/05/21 11:31 BP 113/67 12/05/21 10:00 Pulse Ox 93 12/05/21 11:31 12/04/21 12/05/21 12/05/21 22:59 06:59 14:59 Intake Total 796.912 / 1305.652 478.977 / 1784.629 195.355 / 195.355 Output Total 2100 / 2100 1600 / 3700 0 / 0 Balance -1303.088 / -794.348 -1121.023 / -1915.371 195.355 / 195.355 Weight last 48 hrs Weight 55.883 kg Physical Exam Narrative: General: Intubated, sedated Cardio: Regular rate rhythm, normal S1-S2 Respiratory: B/l coarse crackles present GI: Abdomen soft, nontender, nondistended, bowel sounds + Extremities: no edema, no cyanosis.? Bandage left thigh appears clean.? No drainage noted.? Pulses present bilateral lower extremities.? Urinary Catheter Management: Diaz: Cath Placed During This Visit: yes, but has since been removed by the nurse Reason for Continuing Indwelling Catheter: Accurate Measurement of Urinary Output in Critically Ill Patients Urinary Catheter Date of Insertion: 11/26/21 Urinary Catheter Time of Insertion: 20:00 Date Urinary Catheter Removed: 11/30/21 Time Urinary Catheter Discontinued: 10:00 Data : 12/05/21 03:17 12/05/21 03:17 A&P Assessment and plan (1) Ventricular tachycardia: Status: Acute (2) Thrombocytopenia: Status: Acute (3) Goals of care, counseling/discussion: Status: Acute (4) Torsades de pointes: Status: Acute (5) History of lung cancer: Status: Acute (6) Septic shock: Status: Acute (7) Acute ST segment elevation PR: Status: Acute (8) ARDS (adult respiratory distress syndrome): Status: Acute (9) Diuretic-induced hypokalemia: Status: Acute (10) Encounter for postoperative care: Status: Acute (11) Sepsis with acute hypoxic respiratory failure: Status: Acute (12) Acute respiratory distress syndrome (ARDS): Status: Acute (13) Ventilator dependent: Status: Acute (14) Dysphagia: Status: Acute (15) Pneumonia: Status: Acute (16) Aspiration into airway: Status: Acute (17) 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: Status: Acute Qualifiers: Fracture morphology: oblique Fracture alignment: displaced Qualified Code(s): S72.332K - Displaced oblique fracture of shaft of left femur, subsequent encounter for closed fracture with nonunion (18) Lung cancer: Status: Acute (19) COPD (chronic obstructive pulmonary disease): Status: Acute (20) Screening for colon cancer: Status: Acute (21) Hepatitis C: Status: Acute Qualifiers: Viral hepatitis chronicity: chronic Hepatic coma status: without hepatic coma Qualified Code(s): B18.2 - Chronic viral hepatitis C (22) Internal derangement of left knee: Status: Acute (23) Left upper lobe pulmonary infiltrate: Status: Acute (24) Pathological fracture of femur: Status: Acute Qualifiers: Pathology associated with fracture: neoplastic disease Encounter type: sequela Laterality: left Qualified Code(s): M84.552S - Pathological fracture in neoplastic disease, left femur, sequela (25) Restless legs syndrome: Status: Acute Plan #Vent dependent acute hypoxic respiratory failure #Left vocal cord paralysis on Neck CT #ARDS #Possible aspiration pneumonia vs post op pneumonia #Vaping dependence #Methamphetamine abuse #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 Levophed restarted at very low-dose. Hopefully we will to come off of that stone. ? Repeat sputum culture ? Continue vancomycin Levaquin, Zosyn ? Repeat blood culture pending - Hydrocortisone 50 mg daily -Continue Lasix 40 twice daily ? Continue propofol and fentanyl.? Wean off as able ? We will increase free water flushes for patient's hypernatremia. Sodium 150 today. ? DIC panel, HIT panel ordered.? Thrombocytopenia most likely sepsis.? Lovenox was stopped.? on arixtra for DVT prophylaxis. -IV iron 1 g over 5 days ordered.? She is status post 3 units blood transfusion -Consider tracheostomy in next few days if patient does not improve. ? Pulmonology following. Recommendations appreciated. Drips: Propofol, fentanyl, precedex Nutrition: NPO.? Continue tube feeds. CODE STATUS: Full code except no chest compressions. Family okay with medications defibrillation, mechanical ventilation. Discussed in detail with patient's DPOA/mother Ms. Anglin.? Will update family today at bedside. PUD prophylaxis: Protonix DVT prophylaxis: SCDs.? Hold off on Lovenox given thrombocytopenia. Discharge planning: Plan for LTAC versus SNF once recovers. Continue with care at ICU care Attestations Medical Necessity Statement*: Requires further hospitalization for ARDS, septic shock in setting of recent acute anterior wall PR, aspiration pneumonitis follow-up patient was admitted for hip fracture, post-ORIF Coding Level of Care Code Acute Force Adjustment Supervisor for g Fwd Diagnoses Ventricular tachycardia I47.2 Thrombocytopenia D69.6 Goals of care, counseling/discussion Z71.89 Torsades de pointes I47.2 History of lung cancer Z85.118 Septic shock A41.9; R65.[address] segment elevation PR I21.3 ARDS (adult respiratory distress syndrome) J80 Diuretic-induced hypokalemia E87.6; T50.2X5A Encounter for postoperative care Z48.89 Sepsis with acute hypoxic respiratory failure A41.9; R65.20; J96.01 Acute respiratory distress syndrome (ARDS) J80 Ventilator dependent Z99.11 Dysphagia R13.10 Pneumonia J18.9 Aspiration into airway T17.908A 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
[2021-12-05 15:02] LABS: Blood Urea Nitrogen 38 mg/dL (6-20); Calcium 8.4 mg/dL (8.5-10.5); Carbon Dioxide 23 mmol/L (22-29); Chloride 108 mmol/L (98-107); Glomerular Filtration Rate 65.5 mL/min (90-130); Glucose 138 mg/dL (65-115); Osmolality Calculated 313 mOsm/kg (285-295); Sodium 146 mmol/L (136-145)
[2021-12-05 15:09] LABS: Anion Gap 19.7 (5-19); Potassium 4.7 mmol/L (3.5-5.1)
[2021-12-05] MEDS: hydrocortisone 100 mg/2 mL SDV 50 MG IVP (15:49)
[2021-12-05] MEDS: rocuronium 10 mg/mL INJ 5mL IVP (15:50)
--- NOTE | 2021-12-05 19:56 | PC.NURSE ---
Pt does not tolerate foot pumps. She kicks legs, causing her oxygen saturation to drop.
[2021-12-05] MEDS: norepinephrine 8 MG in dextrose 5 % 500 ML 7.62 MG IV (21:37)
--- NOTE | 2021-12-05 21:38 | PC.NURSE ---
Levophed at 2 mcg/kg/min prior to my shift.
--- NOTE | 2021-12-05 21:59 | PC.NURSE ---
Pt has a blink reflex, but does not cough when suctioned. Propofol decreased.
[2021-12-05] MEDS: propofol 1,000 MG/100 ML INJ 15.65 MG IV (22:28)
--- NOTE | 2021-12-05 22:51 | PC.NURSE ---
148.75 mls of Fentanyl wasted with second RN witness.
[2021-12-06] VITALS (60 sets, daily range): BP systolic 78–129; BP diastolic 48–71; PULSE 82–116; RESP 14–23; TEMP 37.6–38.8; O2SAT 88–95
[2021-12-06] MEDS: acetaminophen 325 mg Tablet 650 MG PO ×3 (00:10→21:04)
[2021-12-06] MEDS: ipratropium-albuterol 3 mL Neb INHALATION ×7 (00:28→23:45)
[2021-12-06] MEDS: chlorhexidine gluconate 4% Btl 118 mL 1 APPLIC TOPICAL (00:52)
--- NOTE | 2021-12-06 02:26 | PC.NURSE ---
Pt takes approximately 3 shallow breaths to every 1 ventilator delivered breath.
--- NOTE | 2021-12-06 03:17 | PC.NURSE ---
Pt's temperature 102 degrees axillary at 0300. Ice packs placed over femoral arteries on bilateral groin. Ice added to free water flushes. Room temperature was decreased at 0000. Fan has also been placed in patient's room to assist with cooling.
[2021-12-06] MEDS: propofol 1,000 MG/100 ML INJ 13.91 MG IV (04:54)
[2021-12-06] MEDS: piperacillin-tazobactam 3.375 GM in sodium chloride 0.9% (plus) 50 ML IV (04:55)
[2021-12-06] MEDS: dexmedeTOMIDine 0.9 % NaCL 400 MCG/100 ML PREMIX 17.09 MCG IV ×4 (05:09→20:50)
[2021-12-06 05:52] LABS: Basophils % 0.2 %; Eosinophils # 0.4 10^3/uL (0.0-0.8); Eosinophils % 2.2 %; Hemoglobin 9.6 g/dL (11.5-15.3); Lymphocytes # 1.4 10^3/uL (0.8-4.8); Lymphocytes % 7.8 %; Mean Corpuscular Hemoglobin 29.8 pg (28.0-34.0); Mean Corpuscular Volume 99.4 fl (81-99); Mean Platelet Volume 12.3 fL (7.4-10.4); Monocytes # 0.6 10^3/uL (0.2-0.9); Monocytes % 3.1 %; Neutrophils # 15.38 10^3/uL (1.8-7.7); Neutrophils % 84.8 %; Nucleated Red Blood Cells % 0.2 %; Platelet Count 135 10^3/cmm (130-400); Red Blood Count 3.22 10^6/uL (4.1-5.3); Red Cell Distribution Width 17.2 % (12.1-15.1); White Blood Count 18.1 10^3/uL (4.0-10.0)
[2021-12-06 06:15] LABS: Anion Gap 11.9 (5-19); Blood Urea Nitrogen 41 mg/dL (6-20); Calcium 8.6 mg/dL (8.5-10.5); Carbon Dioxide 32 mmol/L (22-29); Chloride 110 mmol/L (98-107); Creatinine Clr Calc Pharmacy 56.6675; Glucose 144 mg/dL (65-115); Osmolality Calculated 325 mOsm/kg (285-295); Sodium 151 mmol/L (136-145)
[2021-12-06 06:18] LABS: Potassium 2.9 mmol/L (3.5-5.1)
--- NOTE | 2021-12-06 06:20 | PC.NURSE ---
Pad under pt changed. Afterward, pt became dusky and sat up in bed, pulling against restraints and biting tube. Propofol increased and environmental stimuli decreased.
[2021-12-06] MEDS: budesonide 0.5 mg/2 mL Neb INHALATION ×2 (07:30→19:51)
--- NOTE | 2021-12-06 07:57 | P.PN_ITS ---
Subjective Subjective: Spiked a fever overnight 103. When seen earlier this morning she was 99.9. Report from nursing staff that sputum has changed color to yellow- green. Previous states it was clear. Blood pressure also dropped overnight she had to restart on the Levophed. Currently on Precedex, propofol, fentanyl. Patient also received a one-time dose of rocuronium yesterday. This was for dyssynchrony on the vent. WBC 18.1 today. Hemoglobin is stable. Hypernatremic again today 151. Free water flushes were increased yesterday. Vitals/I&O/Wt Last Vital Signs Temp 100.7 F H 12/06/21 06:00 Pulse 85 12/06/21 07:31 Resp 19 H 12/06/21 07:31 BP 78/60 12/06/21 06:00 Pulse Ox 92 12/06/21 07:31 12/05/21 12/06/21 12/06/21 22:59 06:59 14:59 Intake Total 993.256 / 1714.444 959.076 / 2673.520 Output Total 850 / 850 Balance 993.256 / 1714.444 109.076 / 1823.520 Weight last 48 hrs Weight 55.701 kg Physical Exam Narrative: General: Intubated, sedated Cardio: Regular rate rhythm, normal S1-S2 Respiratory: B/l coarse crackles present GI: Abdomen soft, nontender, nondistended, bowel sounds + Extremities: no edema, no cyanosis.? Bandage left thigh appears clean.? No drainage noted.? Pulses present bilateral lower extremities.? Urinary Catheter Management: Diaz: Cath Placed During This Visit: yes, but has since been removed by the nurse Reason for Continuing Indwelling Catheter: Accurate Measurement of Urinary Out put in Critically Ill Patients Urinary Catheter Date of Insertion: 11/26/21 Urinary Catheter Time of Insertion: 20:00 Date Urinary Catheter Removed: 11/30/21 Time Urinary Catheter Discontinued: 10:00 Data : 12/06/21 05:40 12/06/21 05:40 A&P Assessment and plan (1) Electrolyte abnormality: Status: Acute (2) Ventricular tachycardia: Status: Acute (3) Thrombocytopenia: Status: Acute (4) Goals of care, counseling/discussion: Status: Acute (5) Torsades de pointes: Status: Acute (6) History of lung cancer: Status: Acute (7) Acute ST segment elevation NV: Status: Acute (8) ARDS (adult respiratory distress syndrome): Status: Acute (9) Sepsis with acute hypoxic respiratory failure: Status: Acute (10) Acute respiratory distress syndrome (ARDS): Status: Acute (11) Ventilator dependent: Status: Acute (12) Dysphagia: Status: Acute (13) Pneumonia: Status: Acute (14) Lung cancer: Status: Acute (15) Vaping nicotine dependence, tobacco product: Status: Acute (16) Methamphetamine abuse: Status: Acute (17) Paralysis of left vocal cord: Status: Acute (18) Aspiration into airway: Status: Acute (19) Hepatitis C: Status: Acute Qualifiers: Viral hepatitis chronicity: chronic Hepatic coma status: without hepat ic coma Qualified Code(s): B18.2 - Chronic viral hepatitis C Plan #Vent dependent acute hypoxic respiratory failure #Left vocal cord paralysis on Neck CT #ARDS #Possible aspiration pneumonia vs post op pneumonia versus vaping induced lung injury #Vaping dependence #Methamphetamine abuse #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 Levophed restarted. Febrile overnight. ? Repeat sputum culture, placed on linezolid, imipenem. Stop Zosyn. Continue on Levaquin for dual pseudomonal coverage. ? Repeat blood cultures today - Hydrocortisone 50 mg daily -Continue Lasix 40 twice daily ? Continue propofol and fentanyl.? Wean off as able ? We will increase free water flushes for patient's hypernatremia.? Sodium 150 today. ? DIC panel, HIT panel ordered.? Thrombocytopenia most likely sepsis.? Lovenox was stopped.? on arixtra for DVT prophylaxis. -IV iron 1 g over 5 days ordered.? She is status post 3 units blood transfusion. Iron infusions complete -Consider tracheostomy in next few days if patient does not improve. ? Pulmonology following.? Recommendations appreciated. -Had a discussion with family. Tracheostomy has been offered which they are declining at this time. I have spoken to patient's mother, stepmother, father including step brother who works for [employer]. We have had extensive discussions daily. They would like to speak with medical anthropology director. Family meeting will be set up tomorrow and further care will be decided. Drips: Propofol, fentanyl, precedex Nutrition: NPO.? Continue tube feeds. CODE STATUS: Full code except no chest compressions.? Family okay with medications defibrillation, mechanical ventilation.? Discussed in detail with patient's DPOA/mother Ms. Anglin.? Will update family today at bedside. PUD prophylaxis: Protonix DVT prophylaxis: SCDs.? Hold off on Lovenox given thrombocytopenia. Discharge planning: Plan for LTAC versus SNF once recovers. Continue with care at ICU care Attestations Medical Necessity Statement*: Continue ICU level care. Coding Level of Care Code Acute Chain Offbearer for Chg Fwd Diagnoses Electrolyte abnormality E87.8 Ventricular tachycardia I47.2 Thrombocytopenia D69.6 Goals of care, counseling/discussion Z71.89 Torsades de pointes I47.2 History of lung cancer Z85.[address] segment elevation NV I21.3 ARDS (adult respiratory distress syndrome) J80 Sepsis with acute hypoxic respiratory failure A41.9; R65.20; J96.01 Acute respiratory distress syndrome (ARDS) J80 Ventilator dependent Z99.11 Dysphagia R13.10 Pneumonia J18.9 Lung cancer C34.90 Vaping nicotine dependence, tobacco product F17.290 Methamphetamine abuse F15.10 Paralysis of left vocal cord J38.01 Aspiration into airway T17.908A Hepatitis C B18.2 Viral hepatitis chronicity: chronic Hepatic coma status: without hepatic coma
[2021-12-06] MEDS: vancomycin 1,000 MG in sodium chloride 0.9% 250 ML 250 MG IV (09:27)
[2021-12-06] MEDS: pantoprazole 40 mg SDV IVP ×2 (09:28→21:13)
[2021-12-06] MEDS: potassium chloride premix 100 ML 25 MEQ IV (09:28)
[2021-12-06] MEDS: chlorhexidine gluconate 0.12% Btl 473 mL 15 ML MUCOUS MEM ×2 (09:29→18:03)
[2021-12-06] MEDS: buPROPion XL (24 HR) 150 mg Tablet PO (09:29)
[2021-12-06] MEDS: aspirin 81 mg EC Tablet PO (09:29)
[2021-12-06] MEDS: clopidogrel 75 mg Tablet PO (09:29)
[2021-12-06] MEDS: sertraline 100 mg Tablet PO (09:30)
[2021-12-06] MEDS: fondaparinux 2.5 mg/0.5 mL Syringe SUBCUT (09:30)
[2021-12-06 09:36] LABS: ABG PCO2 38.9 mmHg (35-45); Alveolar-Arterial Oxygen Gradi 71.6 mmHg (5-10); Arterial Blood Gas Hematocrit 30.3 % (37-47); Base Excess ABG -0.2 mmol/L (-2.0-2.0); Carboxyhemoglobin 1.8 %THgb (0.4-20.1); HCO3 ABG 24.5 mmol/L (22-26); HGB O2 Sat 80.8 % (95-100); Methemoglobin 0.2 % (0.4-1.5); Oxygen Saturation ABG 82.4; PO2 ABG 45.1 mmHg (80.0-100.0); Total Hemoglobin 9.9 g/dL (12-16)
[2021-12-06] MEDS: propofol 1,000 MG/100 ML INJ 15.65 MG IV ×2 (10:23→16:29)
[2021-12-06] MEDS: FUROsemide 10 mg/mL SDV 4mL 40 MG IVP ×2 (13:38→23:09)
--- NOTE | 2021-12-06 13:40 | CT_ITS ---
WS: [id number] CT HEAD TECHNIQUE: Noncontrast CT of the head obtained from the skullbase to the vertex. CLINICAL INFORMATION: unable to wean off sedation COMPARISON: MRI 2019 DLP: 1587.[address] scans at [facility] use at least one of these dose optimization techniques: automated e xposure control; mA and/or kV adjustment per patient size (includes targeted exams where dose is matc hed to clinical indication); or iterative reconstruction. FINDINGS: No evidence of intracranial hemorrhage or mass effect. Ventricular system and basal cisterns are soriano nt. Mild small vessel changes with mild parenchymal volume loss. Small area of chronic ischemia in th e LEFT centrum semiovale. No extra-axial fluid collections. No evidence of mass or mass effect. Gris l ferreira-white differentiation. Secretions within the sphenoid sinus. Mild mucosal thickening of the mastoid tips. Paranasal sinuses are otherwise well aerated. Normal posterior nasopharynx. Incidental slightly low-lying cerebellar to nsils unchanged. CT/CT head wo con* [id number] IMPRESSION: 1. No evidence of intracranial hemorrhage or mass effect. 2. Mild small vessel changes with mild parenchymal volume loss. 3. Sphenoid sinusitis.
[2021-12-06] MEDS: rocuronium 10 mg/mL INJ 5mL IVP (14:44)
--- NOTE | 2021-12-06 15:21 | XR_ITS ---
WS: [id number] Exam: XR chest 1V portable [id number] Date/Time of Exam: 12/06/2021 3:38 PM Reason For Exam: pneumoia? Comparison 12/05/2021. Widespread interstitial and airspace infiltrates again noted. Very little change since the previous s tudy. The lungs remain fully inflated. ET tube is in satisfactory position ending about 4 cm above th e jae. Left-sided central line remains in satisfactory position near the cavoatrial junction. An e nteric tube extends below the diaphragm but the tip is not visible. Cardiomediastinal silhouette is s table in appearance. Additional monitoring leads superimpose the chest. XR/XR chest 1V portable [id number] IMPRESSION: 1. Bilateral pulmonary infiltrates unchanged. 2. ET tube and left-sided central line all remain in satisfactory location with out change.
--- NOTE | 2021-12-06 16:14 | PC.OT ---
OT TREATMENT HELD DUE TO PATIENT INTUBATION AND CURRENT HEALTH STATUS. WILL ATTEMPT AGAIN LATER TOMORROW. WILL REDUCE FREQUENCY TO 5X/ WEEK SATURDAY-SATURDAY UNTIL PATIENT CAN PARTICIPATE ACTIVELY IN SKILLED OT TREATMENT.
[2021-12-06] MEDS: hydrocortisone 100 mg/2 mL SDV 50 MG IVP (18:01)
[2021-12-06] MEDS: levofloxacin-dextrose 5 % 500 MG/100 ML PREMIX 100 MG IV (18:03)
[2021-12-06] MEDS: linezolid premix 600 MG/300 ML PREMIX 300 MG IV (20:26)
[2021-12-06 21:47] LABS: UFH High Dose, 100 IU/ML 3 % release; UFH Low Dose, 0.1 IU/ML 1 % release; UFH Low Dose, 0.5 IU/ML 1 % release; UFH SRA Result NEGATIVE (NEGATIVE)
[2021-12-07] VITALS (23 sets, daily range): BP systolic 83–115; BP diastolic 49–75; PULSE 93–108; RESP 14–19; TEMP 37.3–37.9; O2SAT 84–98
[2021-12-07] MEDS: propofol 1,000 MG/100 ML INJ 15.65 MG IV ×3 (00:14→13:08)
[2021-12-07] MEDS: norepinephrine 8 MG in dextrose 5 % 500 ML 7.62 MG IV (01:30)
[2021-12-07] MEDS: chlorhexidine gluconate 4% Btl 118 mL 1 APPLIC TOPICAL (01:33)
[2021-12-07] MEDS: dexmedeTOMIDine 0.9 % NaCL 400 MCG/100 ML PREMIX 11.39 MCG IV (03:21)
[2021-12-07] MEDS: ipratropium-albuterol 3 mL Neb INHALATION ×3 (03:54→11:42)
--- NOTE | 2021-12-07 06:00 | XR_ITS ---
WS: [id number] Exam: XR chest 1V portable [id number] Date/Time of Exam: 12/07/2021 6:00 AM Reason For Exam: intubated Comparison 12/06/2021. Widespread bilateral pulmonary infiltrates unchanged. No pneumothorax. The heart is not enlarged. ET tube in satisfactory position ending about 5 cm above the jae. Left subclavian central line ending at the cavoatrial junction. An enteric tube noted extending into the stomach but the tip is not visi ble. XR/XR chest 1V portable [id number] IMPRESSION: 1. Widespread bilateral pulmonary infiltrates unchanged. 2. ET tube, central line and enteric tube all appear to be in satisfactory posi tion.
[2021-12-07] MEDS: linezolid premix 600 MG/300 ML PREMIX 300 MG IV (07:35)
--- NOTE | 2021-12-07 07:40 | PC.SOCIAL ---
IMM Update IMM not updated. Patient is intubated and not anticipating DC in the next 24 hours.
[2021-12-07] MEDS: budesonide 0.5 mg/2 mL Neb INHALATION (08:10)
--- NOTE | 2021-12-07 08:49 | P.PN_ITS ---
Subjective Subjective: Tracy is sedated on the ventilator. She does not have any significant response for me. She does not yet have her laboratory completed this morning. I have reviewed her history and physical in detail, as well as her hospital course. Medications: Reviewed: Yes Vitals/I&O/Wt Last Vital Signs Temp 99.2 F 12/07/21 08:00 Pulse 96 12/07/21 08:18 Resp 18 12/07/21 08:00 BP 101/56 12/07/21 08:00 Pulse Ox 93 12/07/21 08:00 12/06/21 12/07/21 12/07/21 22:59 06:59 14:59 Intake Total 1847.560 / 2100.144 914.433 / 3014.577 Output Total 1800 / 1800 1150 / 2950 Balance 47.560 / 300.144 -235.567 / 64.577 Weight last 48 hrs Weight 65.431 kg Weight 55.701 kg Physical Exam Narrative: General exam is a sedated female, on the ventilator HEENT: Atraumatic and normocephalic. Pupils are equal. Oropharyngeal tube and endotracheal tube are noted Neck is supple no lymphadenopathy or thyromegaly Cardiovascular regular rate and rhythm without murmur, left port is noted Lungs few coarse breath sounds bilaterally. No wheezing Abdomen hypoactive bowel sounds. Nondistended. No obvious organomegaly demonstrates Diaz Extremities no cyanosis clubbing or edema. Steri-Strips are present over the left hip with no significant drainage or erythema Skin see findings above Neurologic: Currently sedated and not responsive Urinary Catheter Management: Diaz: Cath Placed During This Visit: yes, but has since been removed by the nurse Reason for Continuing Indwelling Catheter: Accurate Measurement of Urinary Output in Critically Ill Patients Urinary Catheter Date of Insertion: 11/26/21 Urinary Catheter Time of Insertion: 20:00 Date Urinary Catheter Removed: 11/30/21 Time Urinary Catheter Discontinued: 10:00 Data : 12/06/21 05:40 12/06/21 05:40 Other Labs: CT head yesterday demonstrated no acute changes Micro: Microbiology 12/06/21 18:02 Blood Culture - Preliminary Blood SPECIMEN COLLECTED 12/06/21 12:15 Gram Stain - Final Sputum - Endotracheal Tube Aspirate A&P Assessment and plan (1) Acute respiratory distress syndrome (ARDS): Patient currently with acute respiratory distress syndrome. Etiology presumably pneumonia. Currently receiving significant ventilatory support with PEEP of 10, FiO2 of 100%. Pulmonary following. Overall condition appears to be worsening significantly over the last 3 to 4 days. Significant asynchrony occurs when sedation is lessened. She had intermittently required doses of paralytic in the past. Patient with significant vaping history as of late Sedation on ventilator currently with fentanyl, propofol, Precedex Status: Acute (2) Acute ST segment elevation MN: Patient had episode of torsades, on December 01. Cardiology consultation was obtained secondary to ST elevation myocardial infarction and she was taken for angiogram. She underwent angioplasty and stent placement circumflex. Following this a limited echocardiogram was performed which demonstrated mild hypokinesis basal and mid inferior lateral chavez, and ejection fraction at around 65%. She has been maintained on Plavix and aspirin since that time. Consider addition of statin. Status: Acute (3) Pneumonia: Concern during hospital stay following hip fracture repair the patient had aspiration pneumonitis. She was placed on antibiotics time, and eventually extubated. She was reintubated during her cardiac event on December 01. Currently she has had recurrence of fever, with T-max of 102 ?F over the last 24 hours. Antibiotics were expanded and she is currently on linezolid, Levaquin, Primaxin. Cultures have been repeated. These are negative to date. Gram stain of sputum showed no white blood cells and no organisms. Previously a bronchoscopy was done on November 22 and this has been unrevealing as far as pathogen. Status: Acute (4) Paralysis of left vocal cord: This is complicated respiratory status Status: Acute (5) Sepsis with acute hypoxic respiratory failure: Sepsis previously had resolved. However there is concern of recurrent infection lately with hypotension and fever. Antibiotics have been expanded. At this point secondary to her respiratory status she was not a candidate for any significant fluid resuscitation. Status: Acute (6) COPD (chronic obstructive pulmonary disease): Currently on pulmonary toilet, with budesonide as well as every 4 hours DuoNeb. She is also receiving IV steroids in the form of hydrocortisone, initially started for concerns of hypotension and sepsis. She is down to 50 mg IV every 24 hours. Status: Acute (7) Anemia: Patient developed anemia, possibly secondary to acute blood loss with hip fracture as well as acute illness. This is remained stable as of late. Status: Acute (8) Hypernatremia: Patient with significant hypernatremia yesterday. She has been receiving Lasix IV with increasing sodium. At this point we will discontinue IV Lasix until laboratory today can be reviewed. Certainly overall it is desired not to have any evidence of fluid overload, which is not clinically significant on exam today. Patient also with history of hypokalemia, await laboratory today. Status: Acute (9) Hypotension: Currently with hypotension. 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 She has been treated since 2019. Last oncology visit in September did not show any evidence of disease progression. Status: Acute (11) Hepatitis C: Patient with history of hepatitis C. Anticoagulation was held secondary to platelets drifting down. They are currently 135,000. We will reinitiate Lovenox at 30 mg subcu every 24 hours Status: Acute Qualifiers: Viral hepatitis chronicity: chronic Hepatic coma status: without hepatic coma Qualified Code(s): B18.2 - Chronic viral hepatitis C (12) Pathological fracture of femur: Patient presented with pathologic fracture of femur, left side with repair on November 17. No evidence of problems with repair. Status: Acute Qualifiers: Pathology associated with fracture: neoplastic disease Encounter type: sequela Laterality: left Qualified Code(s): M84.552S - Pathological fracture in neoplastic disease, left femur, sequela Plan Multiple other medical problems reviewed and as listed in the chart. Currently limited code Tube feeds at 20 cc an hour, to advance as tolerated. On Arixtra for DVT prophylaxis Protonix for GI prophylaxis Attestations Medical Necessity Statement*: Needs continued hospitalization secondary to respiratory failure requiring mechanical ventilation at maximal support. On Arixtra for DVT prophylaxis Critical Care Time: The high probability of a clinically significant, sudden or life threatening deterioration of the patient's [pulmonary, cardiac, hematologic system(s) required my full and direct attention, intervention and personal management. The critical care time is as shown. This time is in addition to time spent performing any reported procedures but includes the following: [x] Data and vital sign review and interpretation [x] Patient assessment, examination and intervention [x] Documentation [x] Medication orders and management Critical Care Time (min): 44 Coding Level of Care Code Acute [employer] for [employer] Diagnoses Acute respiratory distress syndrome (ARDS) J80 Acute ST segment elevation MN I21.3 Pneumonia J18.9 Paralysis of left vocal cord J38.01 Sepsis with acute hypoxic respiratory failure A41.9; R65.20; J96.01 COPD (chronic obstructive pulmonary disease) J44.9 Anemia D64.9 Hypernatremia E87.0 Hypotension I95.9 History of lung cancer Z85.118 Hepatitis C B18.2 Viral hepatitis chronicity: chronic Hepatic coma status: without hepatic coma Pathological fracture of femur M84.552S Pathology associated with fracture: neoplastic disease Encounter type: sequela Laterality: left
[2021-12-07 09:11] LABS: ABG PH Result 7.29 (7.35-7.45); Arterial Blood Gas Hematocrit 30.2 % (37-47); Base Excess ABG 5.6 mmol/L (-2.0-2.0); Blood Gas Operator Identificat GD; Blood Gas Sample Site Brachial, right; Blood Gas Sample Type Arterial; HCO3 ABG 33.6 mmol/L (22-26); Oxygen Device VENT; PO2 ABG 55.8 mmHg (80.0-100.0)
[2021-12-07 09:14] LABS: ABG PCO2 69.4 mmHg (35-45)
[2021-12-07] MEDS: buPROPion XL (24 HR) 150 mg Tablet PO (09:33)
[2021-12-07] MEDS: pantoprazole 40 mg SDV IVP (09:33)
[2021-12-07] MEDS: clopidogrel 75 mg Tablet PO (09:33)
[2021-12-07] MEDS: sertraline 100 mg Tablet PO (09:34)
[2021-12-07] MEDS: aspirin 81 mg EC Tablet PO (09:34)
[2021-12-07] MEDS: fondaparinux 2.5 mg/0.5 mL Syringe SUBCUT (09:47)
[2021-12-07 10:00] LABS: Basophils % 0.2 %; Eosinophils # 0.2 10^3/uL (0.0-0.8); Eosinophils % 1.2 %; Hemoglobin 9.2 g/dL (11.5-15.3); Lymphocytes # 1.6 10^3/uL (0.8-4.8); Lymphocytes % 10.3 %; Mean Corpuscular HGB Conc 30.7 g/dL (30.0-36.0); Mean Corpuscular Hemoglobin 29.7 pg (28.0-34.0); Mean Corpuscular Volume 96.8 fl (81-99); Mean Platelet Volume 10.2 fL (7.4-10.4); Monocytes # 0.5 10^3/uL (0.2-0.9); Monocytes % 3.3 %; Neutrophils # 12.73 10^3/uL (1.8-7.7); Neutrophils % 83.6 %; Nucleated Red Blood Cells # 0.1 /100WBC; Nucleated Red Blood Cells % 0.5 %; Platelet Count 160 10^3/cmm (130-400); Red Cell Distribution Width 16.8 % (12.1-15.1); White Blood Count 15.2 10^3/uL (4.0-10.0)
[2021-12-07 10:25] LABS: Anion Gap 12.4 (5-19); Blood Urea Nitrogen 39 mg/dL (6-20); Carbon Dioxide 30 mmol/L (22-29); Chloride 107 mmol/L (98-107); Glomerular Filtration Rate 65.5 mL/min (90-130); Glucose 136 mg/dL (65-115); Magnesium 2.5 mg/dL (1.7-2.3); Osmolality Calculated 313 mOsm/kg (285-295); Potassium 3.4 mmol/L (3.5-5.1); Sodium 146 mmol/L (136-145)
[2021-12-07] MEDS: FUROsemide 10 mg/mL SDV 4mL 40 MG IVP (12:27)
[2021-12-07] MEDS: lidocaine 1% 5 ML in potassium chloride premix 100 ML 25 ML IV (12:28)
[2021-12-07] MEDS: rocuronium 10 mg/mL INJ 5mL IVP (12:46)
--- NOTE | 2021-12-07 15:23 | PM.MISC ---
Miscellaneous Note Purpose of Documentation: Family visit Note: I visited with family prior to extubation.
[2021-12-07] MEDS: LORazepam 2 mg/mL INJ 1 mL 1 MG IVP (15:57)
[2021-12-07] MEDS: morphine 4 mg/mL SDV 1 mL IVP (15:57)
--- NOTE | 2021-12-07 16:13 | PC.NURSE ---
Comfort care Pt has been transitioned over to comfort care per family request and after doctor order's placed. All IV drips were turned off, IV morphine and ativan given immediately prior to extubation. Pt's family is at bedside.
--- NOTE | 2021-12-07 17:31 | PC.NURSE ---
LINDA Pt in asystole at 1636. One minute apical taken with zero beats heard. Family is at bedside. MTS notified at 1656, pt is not a candidate for organ donation. [facility] also denied pt as donor. Family has requested [facility] in [place]. Body transfer form signed by Linnette pt's mother.
--- NOTE | 2021-12-08 10:09 | PM.DDS ---
Discharge Providers DDS Date of Admission: 11/16/21 17:36 Date Summary Completed: 12/08/21 Attending Provider at Admission: Jason Lo MD Time of : 16:36 Attending Provider at Discharge: Harman Cary MD Consults: Dr. Durant, Dr. Terry, Dr. Marc, Dr. Sharma Primary Care Provider: MD YARELIS Gay Diagnoses Hospital Diagnoses (1) Acute respiratory distress syndrome (ARDS): (2) Acute ST segment elevation PR: (3) Pneumonia: (4) Paralysis of left vocal cord: (5) Sepsis with acute hypoxic respiratory failure: (6) COPD (chronic obstructive pulmonary disease): (7) Anemia: (8) Hypernatremia: (9) Hypotension: (10) History of lung cancer: (11) Hepatitis C: Qualifiers: Viral hepatitis chronicity: chronic Hepatic coma status: without hepatic coma Qualified Code(s): B18.2 - Chronic viral hepatitis C (12) Pathological fracture of femur: Qualifiers: Pathology associated with fracture: neoplastic disease Encounter type: sequela Laterality: left Qualified Code(s): M84.552S - Pathological fracture in neoplastic disease, left femur, sequela Reason for Visit Reason for Visit L KNEE PAIN/ FALL Summary Date and Time of Date of : 12/07/21 Time of : 16:36 Summary Summary: Tracy is a 51-year-old white female who originally presented to the hospital on November 16, after a fall and fracture sustained to the mid to distal femoral shaft. She had had previous history of squamous cell cancer, with metastasis to this area so it was thought to be a pathologic fracture. Orthopedic surgery was consulted, and patient hardware removal, and ORIF. During November 20, to November 21 there was concern with development of some breathing difficulty and aspiration. She was moved to the ICU, placed on vancomycin and Zosyn, and pulmonary critical care consultation was obtained. Sepsis was diagnosed. She was intubated on November 22. Other findings that day included concern for left vocal cord paralysis. CT chest at that time demonstrated some groundglass opacities. Bronchoscopy was performed that day for diagnostic purposes, as well as to evaluate for any bronchial plugging. IV steroids were initiated secondary to concern of sepsis and hypotension. Echocardiogram was performed which demonstrated normal ejection fraction. Further history was obtained and there was some concern that vaping could have contributed to lung injury. She had prior lung injury from radiation for malignancy. During the time. On the ventilator antibiotics continued. She did receive a blood transfusion secondary to anemia. COVID testing was performed which was negative. No specific organism was obtained on culture from bronchoscopy. On November 24, she was able to be extubated. Speech therapy evaluation was ongoing. Diet was being advanced per their recommendations. She was able to be transferred to the floor. MRSA PCR was positive and she was continued on coverage with vancomycin at that time. Breathing worsened in subsequent days requiring BiPAP and high flow oxygen intermittently. On December 01, the patient had development of arrhythmia, torsades. A CODE BLUE was called. ST segment elevation was noted and cardiology involved. She went acutely to the angiogram lab and secondary to her long going respiratory difficulties was intubated prior to this. Significant disease was noted in her circumflex artery which was stented with a drug-eluting stent. Ventilator was continued following her angiogram. X-ray was consistent with ARDS. Follow-up echocardiogram demonstrated preserved ejection fraction. Antibiotics continued in the form of vancomycin, and Levaquin. Prognosis was very guarded secondary to ongoing ventilatory need. She showed some improvement in her FiO2 requirement over the intervening days, but by December 03 this was worsening. FiO2 requirement, PEEP requirement increased despite adequate fluid and electrolyte management. Physicians were in discussion with family daily regarding prognosis. By December 07 she was on maximum ventilatory support, with no evidence of improvement. A family conference was performed, led by pulmonary critical care. Family was concerned regarding her chance of meaningful recovery secondary to her pre-existing comorbidities, continued dependence on the ventilator with high requirements, and continued worsening despite maximum supportive care. With this in mind, with family considering patient's desires, they elected to proceed towards the treatment plan of comfort care. She was extubated, and comfort care ensued. She at 1636. Additional Data Advance directives?: No Discharge Plan Discharge Patient Disposition: Condition: Stable Prescriptions: New enoxaparin 40 mg/0.4 mL Syringe 40 mg SUBCUT Q24H 30 Days Qty: 30 0RF Continued aspirin [Adult Aspirin Regimen] 81 mg tablet,delayed release (DR/EC) 81 mg PO DAILY 0RF aripiprazole [Abilify] 5 mg tablet 5 mg PO DAILY Qty: 90 0RF bupropion HCl [Wellbutrin XL] 300 mg tablet extended release 24 hr 300 mg PO QAM Qty: 90 0RF sertraline [Zoloft] 100 mg tablet 200 mg PO DAILY Qty: 180 0RF albuterol sulfate 90 mcg/actuation HFA aerosol inhaler 2 puff inhalation QID PRN (Reason: shortness of breath or wheezing) 30 Days Qty: 8.5 5RF Bevespi Aerosphere 9-4.8 mcg HFA aerosol inhaler 2 puff inhalation BID 100 Days Qty: 10.7 0RF Changed hydrocodone-acetaminophen 7.5-325 mg tablet 1 tab PO Q4H PRN (Reason: Pain) 7 Days Qty: 30 0RF Discharge Orders: Discharge Order (Routine); Ordered 11/29/21 Ordered By: Emily Terry Referrals: Emily Terry MD [Physician] - 6 Weeks Ame Morgan MD [Primary Care Provider] - Discharge Diet: Advance as tolerated and Usual diet Discharge Activity: Limit activity as instructed, Use walker/crutches as instructed and As per PT/OT instructions Patient Instructions: Enoxaparin (By injection) (Lovenox) Activity Restrictions/Additional Instructions: Ice to left lower extremity. Nonweightbearing to toe-touch weightbearing only. Discontinue leonid December 02 follow-up in my office in 4-6 weeks. If you need to be seen sooner please call for appointment. DS Attestations Time Spent in /Discharge Care*: greater than 30 min Quality - AMI: AMI present?: Yes Quality - Stroke: CVA present?: No Symptom Onset Unknown: No Quality - VTE: VTE present?: No Deep Vein Thrombosis/Pulmonary Embolism Present on Admission: No Coding Level of Care Code Acute [employer] for [facility] Fwd Diagnoses Acute respiratory distress syndrome (ARDS) J80 Acute ST segment elevation PR I21.3 Pneumonia J18.9 Paralysis of left vocal cord J38.01 Sepsis with acute hypoxic respiratory failure A41.9; R65.20; J96.01 COPD (chronic obstructive pulmonary disease) J44.9 Anemia D64.9 Hypernatremia E87.0 Hypotension I95.9 History of lung cancer Z85.118 Hepatitis C B18.2 Viral hepatitis chronicity: chronic Hepatic coma status: without hepatic coma Pathological fracture of femur M84.552S Pathology associated with fracture: neoplastic disease Encounter type: sequela Laterality: left
== END 2021-12-07 16:36 | disposition expired | DRG 480 ==
LOC: ER 18:06 → MEDSURG 18:30 → ICU 11-22 10:41
PROVIDERS: Family Medicine; Hospitalist; Internal Medicine; Internal Medicine Critical Care Medicine; Internal Medicine Pulmonary Disease; Physician Assistant; Specialist; Student in an Organized Health Care Education/Training Program; Admitting Provider Internal Medicine; Emergency Provider Family Medicine; PCP Internal Medicine Hematology & Oncology; Visit Provider Internal Medicine
PROC: 0QS704Z Reposition Left Upper Femur with Internal Fixation Device, Open Approach (ICD-10-PCS; principal; 2021-11-17 14:40)
PROC: 0QS704Z Reposition Left Upper Femur with Internal Fixation Device, Open Approach (ICD-10-PCS; 2021-11-17 14:40)
PROC: 027034Z Dilation of Coronary Artery, One Artery with Drug-eluting Intraluminal Device, Percutaneous Approach (ICD-10-PCS; principal; 2021-12-01 06:00)
PROC: 027034Z Dilation of Coronary Artery, One Artery with Drug-eluting Intraluminal Device, Percutaneous Approach (ICD-10-PCS; 2021-12-01 06:00)
DX: T84.125A Displacement of internal fixation device of left femur, initial encounter (principal); A41.9 Sepsis, unspecified organism; R65.21 Severe sepsis with septic shock; I21.09 ST elevation (STEMI) myocardial infarction involving other coronary artery of anterior wall; J69.0 Pneumonitis due to inhalation of food and vomit; J80 Acute respiratory distress syndrome; M84.552A Pathological fracture in neoplastic disease, left femur, initial encounter for fracture; S72.33 Oblique fracture of shaft of femur; C34.90 Malignant neoplasm of unspecified part of unspecified bronchus or lung; M84.55 Pathological fracture in neoplastic disease, pelvis and femur; C79.51 Secondary malignant neoplasm of bone; N17.9 Acute kidney failure, unspecified; E87.0 Hyperosmolality and hypernatremia; I47.2 Ventricular tachycardia; E87.2 Acidosis; D62 Acute posthemorrhagic anemia; Y79.8 Miscellaneous orthopedic devices associated with adverse incidents, not elsewhere classified; I25.10 Atherosclerotic heart disease of native coronary artery without angina pectoris; W01.0XXA Fall on same level from slipping, tripping and stumbling without subsequent striking against object, initial encounter; J43.9 Emphysema, unspecified; B18.2 Chronic viral hepatitis C; F12.21 Cannabis dependence, in remission; F15.10 Other stimulant abuse, uncomplicated; F41.8 Other specified anxiety disorders; F43.12 Post-traumatic stress disorder, chronic; G25.81 Restless legs syndrome; Z51.5 Encounter for palliative care; D69.59 Other secondary thrombocytopenia; I46.9 Cardiac arrest, cause unspecified; E87.6 Hypokalemia; J38.01 Paralysis of vocal cords and larynx, unilateral; B95.62 Methicillin resistant Staphylococcus aureus infection as the cause of diseases classified elsewhere; R13.10 Dysphagia, unspecified; U07.0 Vaping-related disorder; Z92.21 Personal history of antineoplastic chemotherapy; Z92.3 Personal history of irradiation; I95.9 Hypotension, unspecified
CPT/HCPCS: 31622; 36415; 36416; 36430; 36591; 36592; 36600; 51702; 70450; 70491; 71045; 71275; 73551; 73552; 73562; 73590; 73701; 74177; 76000; 80048; 80051; 80053; 80061; 80202; 80503; 81001; 82274; 82330; 82803; 82805; 82962; 83036; 83540; 83550; 83605; 83615; 83735; 83880; 84100; 84145; 84443; 84484; 85007; 85014; 85018; 85025; 85347; 85362; 85378; 85384; 85610; 85651; 85730; 86140; 86850; 86900; 86920; 87040; 87070; 87106; 87205; 87305; 87449; 87486; 87581; 87633; 87635; 87641; 87798; 87799; 88307; 88311; 89050; 92523; 92526; 92610; 93005; 93306; 93308; 93454; 93970; 94002; 94003; 94640; 94660; 94799; 96360; 96372; 97110; 97116; 97161; 97165; 97530; 97535; 99152; 99153; 99285; A4570; C1713; C1725; C1769; C1874; C1887; C1894; C9113; C9600; J0295; J0330; J0690; J0743; J1170; J1450; J1642; J1644; J1650; J1652; J1720; J1756; J1940; J1956; J2020; J2060; J2250; J2270; J2543; J2704; J2920; J3010; J3370; J3475; J3480; J3490; J7030; J7040; J7050; J7626; P9016; P9041; P9047; Q9967